=== PATIENT | male | born 1965 | race Caucasian/White ===

== ENCOUNTER 2022-12-20 08:58 | Outpatient (OUT) | payer MEDICAID, SELFPAY ==
--- NOTE | 2022-12-20 09:02 | XR_ITS ---
The [address] [address] Patient Name: JAZ MEZA MRN: [id number] date: 1965 Sex: M Assigned Patient Location: Current Patient Location: Accession/Order Number: [id number] Exam Date: 12/20/2022 09:02 Report Date: 12/20/2022 10:02 At the request of: LEENA CAZARES Procedure: XR ankle RT min 3V EXAM: XR ankle RT min 3V, XR tibia fibula RT 2V HISTORY: RIGHT ANKLE PAIN COMPARISON: 10/18/2022. TECHNIQUE: 3 views right ankle. 2 views right lower leg. FINDINGS: Remote distal fibular resection. There is removal and/or destruction of the talus as well as distraction of the subtalar joints and junction with midfoot. Disorganized chronic hypertrophic periosteal new bone is again seen around the distal tibia, fibula and ankle and hindfoot. Overall similar appearance compared to prior. May represent some combination of prior infection and/or neuropathic arthropathy but overall similar to prior with no interval new areas of active bone destruction seen. Chronic wavy periosteal thickening at the distal third of the tibia and fibular shafts similar to prior. Stable degree of soft tissue swelling and edema over the ankle. Proximal and mid tibia and fibula are intact with overlying edema. XR/XR ankle RT min 3V IMPRESSION: Overall similar appearance compared to September 2022 as detailed without interval significant change. Electronically authenticated by: SOFIA GOODRICH Date: 12/20/2022 10:02
--- NOTE | 2022-12-20 09:18 | XR_ITS ---
The [address] [address] Patient Name: JAZ MEZA MRN: [id number] date: 1965 Sex: M Assigned Patient Location: Current Patient Location: Accession/Order Number: [id number] Exam Date: 12/20/2022 09:18 Report Date: 12/20/2022 10:02 At the request of: LEENA CAZARES Procedure: XR tibia fibula RT 2V EXAM: XR ankle RT min 3V, XR tibia fibula RT 2V HISTORY: RIGHT ANKLE PAIN COMPARISON: 10/18/2022. TECHNIQUE: 3 views right ankle. 2 views right lower leg. FINDINGS: Remote distal fibular resection. There is removal and/or destruction of the talus as well as distraction of the subtalar joints and junction with midfoot. Disorganized chronic hypertrophic periosteal new bone is again seen around the distal tibia, fibula and ankle and hindfoot. Overall similar appearance compared to prior. May represent some combination of prior infection and/or neuropathic arthropathy but overall similar to prior with no interval new areas of active bone destruction seen. Chronic wavy periosteal thickening at the distal third of the tibia and fibular shafts similar to prior. Stable degree of soft tissue swelling and edema over the ankle. Proximal and mid tibia and fibula are intact with overlying edema. XR/XR tibia fibula RT 2V IMPRESSION: Overall similar appearance compared to September 2022 as detailed without interval significant change. Electronically authenticated by: SOFIA GOODRICH Date: 12/20/2022 10:02
== END 2022-12-20 08:59 | disposition home or self-care (01) ==
PROVIDERS: PCP Family Medicine; Visit Provider Podiatrist Foot & Ankle Surgery
DX: M25.571 Pain in right ankle and joints of right foot (principal); M25.471 Effusion, right ankle; T81.89XA Other complications of procedures, not elsewhere classified, initial encounter; S90.415A Abrasion, left lesser toe(s), initial encounter; E11.621 Type 2 diabetes mellitus with foot ulcer; L97.411 Non-pressure chronic ulcer of right heel and midfoot limited to breakdown of skin
CPT/HCPCS: 36415; 73590; 73610; 80051; 82565; 82947; 84520; 85025; 85652; 86140; A6213; G0463

== ENCOUNTER 2022-12-20 10:17 | Outpatient (OUT) | payer MEDICAID, SELFPAY ==
[2022-12-20 11:01] LABS: Basophils Absolute Auto 0.1 10^3/uL (0.0-0.1); Basophils Percent Auto 0.6 % (0.2-2.0); Eosinophils Absolute Auto 0.1 10^3/uL (0.0-0.7); Eosinophils Percent Auto 1.4 % (0.9-7.0); Hematocrit 36.1 % (42.0-54.0); Hemoglobin 10.9 g/dL (14.0-18.0); Immature Granulocytes Abs Auto 0.03 10^3/uL (0.00-0.03); Immature Granulocytes Pct Auto 0.4 % (0.0-0.5); Lymphocytes Absolute Auto 0.9 10^3/uL (1.2-3.8); Mean Corpuscular HGB Conc 30.2 g/dL (29.9-35.2); Mean Corpuscular Hemoglobin 24.2 pg (25.9-34.0); Mean Corpuscular Volume 80.2 fL (80.0-94.0); Mean Platelet Volume 8.3 fL (9.5-13.5); Monocytes Absolute Auto 0.5 10^3/uL (0.3-0.8); Monocytes Percent Auto 6.1 % (1.7-12.0); Neutrophils Absolute Auto 6.5 10^3/uL (1.4-6.5); Neutrophils Percent Auto 80.5 % (43.0-75.0); Platelet Count 240 10^3/uL (150-450); Red Cell Distribution Width 15.9 % (11.0-15.0); White Blood Count 8.1 10^3/uL (4.0-11.0)
[2022-12-20 11:06] LABS: Erythrocyte Sedimentation Rate 82 mm/hr (<=20)
[2022-12-20 12:00] LABS: Anion Gap 12.8; Carbon Dioxide 28.8 mmol/L (21.0-32.0); Chloride 100 mmol/L (98-107); Estimated GFR (African America 57 (>=60); Estimated GFR (Non-African Ame 47 (>=60); Glucose 106 mg/dL (74-106); Potassium 4.6 mmol/L (3.5-5.1); Sodium 137 mmol/L (136-145)
[2022-12-21 11:21] LABS: C Reactive Protein 6.2 mg/dL (<=1.0)
== END 2022-12-20 10:18 | disposition home or self-care (01) ==
LOC: LAB 10:19
PROVIDERS: PCP Family Medicine
DX: M25.571 Pain in right ankle and joints of right foot (principal); M25.471 Effusion, right ankle
CPT/HCPCS: 36415; 80051; 82565; 82947; 84520; 85025; 85652; 86140

== ENCOUNTER 2022-12-23 12:08 | Inpatient (IN) | payer MEDICAID, SELFPAY ==
[2022-12-23 12:55] VITALS: BP 123/67; PULSE 98; RESP 20; TEMP 37.3; O2SAT 90; BMI 64.3
[2022-12-23 14:24] LABS: Basophils Percent Auto 0.3 % (0.2-2.0); Eosinophils Percent Auto 0.2 % (0.9-7.0); Hematocrit 30.1 % (42.0-54.0); Hemoglobin 9.1 g/dL (14.0-18.0); Immature Granulocytes Abs Auto 0.05 10^3/uL (0.00-0.03); Immature Granulocytes Pct Auto 0.5 % (0.0-0.5); Lymphocytes Absolute Auto 0.9 10^3/uL (1.2-3.8); Lymphocytes Percent Auto 8.3 % (20.5-60.0); Mean Corpuscular HGB Conc 30.2 g/dL (29.9-35.2); Mean Corpuscular Volume 79.4 fL (80.0-94.0); Mean Platelet Volume 8.6 fL (9.5-13.5); Monocytes Absolute Auto 0.9 10^3/uL (0.3-0.8); Neutrophils Absolute Auto 8.6 10^3/uL (1.4-6.5); Neutrophils Percent Auto 81.7 % (43.0-75.0); Platelet Count 250 10^3/uL (150-450); Red Blood Count 3.79 10^6/uL (4.70-6.10); Red Cell Distribution Width 16.2 % (11.0-15.0); White Blood Count 10.5 10^3/uL (4.0-11.0)
[2022-12-23 14:28] VITALS: O2SAT 90
[2022-12-23 14:41] LABS: Erythrocyte Sedimentation Rate 84 mm/hr (<=20)
[2022-12-23 14:48] LABS: Alanine Aminotransferase 18 U/L (16-63); Albumin Globulin Ratio 0.6; Albumin Level 2.6 g/dL (3.4-5.0); Alkaline Phosphatase 109 U/L (46-116); Anion Gap 11.5; Aspartate Amino Transferase 19 U/L (15-37); BUN Creatinine Ratio 17.3; Bilirubin Total 0.9 mg/dL (0.2-1.0); Calcium 8.5 mg/dL (8.5-10.1); Carbon Dioxide 26.3 mmol/L (21.0-32.0); Chloride 98 mmol/L (98-107); Estimated GFR (African America 42 (>=60); Estimated GFR (Non-African Ame 35 (>=60); Globulin 4.4 g/dL; Potassium 3.8 mmol/L (3.5-5.1); Sodium 132 mmol/L (136-145)
[2022-12-23 14:55] LABS: Lactate/Lactic Acid 0.7 mmol/L (0.4-2.0)
[2022-12-23 15:31] LABS: Glucose 48 mg/dL (74-106)
[2022-12-23 15:40] LABS: C Reactive Protein 26.4 mg/dL (<=1.0)
[2022-12-23 16:19] LABS: Glucometer 186 mg/dL (74-106)
--- NOTE | 2022-12-23 17:25 | P.HP_ITS ---
H&P: HPI History of Present Illness Chief complaint: CELLULITIS Narrative: Patient was at home, he has a chronic right foot infection. Called the office with fever chills nausea. Recommended admission, his previous history of becoming septic quickly in the past. Patient mated for IV antibiotics, cultures, consultation to podiatry. [facility] Medical History (Updated 12/23/22 @ 12:42 by Collette Phillips) Surgical History (Updated 12/23/22 @ 12:42 by Collette Phillips) Family History (Updated 12/23/22 @ 12:44 by Collette Phillips) Grandmother Family history of CHF (congestive heart failure) Family history of cancer Mother Family history of cancer Family history of diabetes mellitus Family history of hypertension Brother Family history of diabetes mellitus Family history of hypertension Sister Family history of diabetes mellitus Family history of hypertension Father Family history of hypertension Abdominal aortic aneurysm Social History (Updated 12/23/22 @ 12:46 by Collette Phillips) Within the past year, how often did you have a drink containing alcohol: never Score interpretation: A score less than 4 is consistent with normal alcohol consumption. Smoking status: Former smoker Non-prescribed substance use: denies use Previous occupational history: Disability Highest level of school completed/degree received: some college, no degree Are you now , , , , never or living with a partner: In a typical week, how many times do you talk on the telephone with family, friends, or neighbors: 3 or more times per week How often do you get together with friends or relatives: 3 or more times per week How often do you attend zoroastrian or orthodox services: never Do you belong to any clubs or organizations such as zoroastrian groups unions, fraternal or athletic groups, or school groups: no Total score: 1 Score interpretation: A score of less than or equal to 1 indicates the most socially isolated. Little interest or pleasure in doing things: not at all Feeling down, depressed, or hopeless: not at all Feel stressed/tense/nervous/anxious/difficulty sleeping: not at all Gender Identity: male Meds Home Medications and Allergies Home Medications Medication Instructions Recorded Confirmed Type amlodipine 10 mg tablet 10 mg PO BEDTIME 12/23/22 12/23/22 History apixaban 5 mg tablet (Eliquis) 5 mg PO BID 12/23/22 12/23/22 History carvedilol 12.5 mg tablet 12.5 mg PO Q12H 12/23/22 12/23/22 History clonidine 0.3 mg/24 hr weekly 1 patch topical .Sundays12/23/22 12/23/22 History transdermal patch furosemide 40 mg tablet 40 mg PO DAILY 12/23/22 12/23/22 History gabapentin 300 mg capsule 600 mg PO Q12H 12/23/22 12/23/22 History insulin glargine U-300 conc 300 300 unit subcut Q24H 12/23/22 12/23/22 History unit/mL (1.5 mL) subcutaneous pen (Toujeo SoloStar U-300 Insulin) insulin lispro 200 unit/mL (3 mL) 30 unit subcut ACHS 12/23/22 12/23/22 History subcutaneous pen (Humalog KwikPen U-200 Insulin) pantoprazole 40 mg tablet,delayed 40 mg PO DAILY 12/23/22 12/23/22 History release sacubitril 24 mg-valsartan 26 mg 1 tab PO BID 12/23/22 12/23/22 History tablet (Entresto) Allergies Allergy/AdvReac Type Severity Reaction Status Date / Time ciprofloxacin [From Cipro] Allergy Intermediate Verified 12/23/22 13:16 clindamycin Allergy Intermediate Verified 12/24/22 07:27 shellfish derived Allergy Intermediate Verified 12/23/22 13:16 Exam Constitutional Vital Signs, click to edit/add: Last Vital Signs Temp 98.5 F 12/24/22 06:00 Pulse 86 12/24/22 06:00 Resp 18 12/24/22 08:00 BP 96/56 12/24/22 06:00 Pulse Ox 90 L 12/24/22 06:00 O2 Del Method CPAP 12/24/22 06:00 Documenting provider has reviewed patient's vital signs: yes Common normals: apparent distress General appearance: lethargic and diaphoretic HENMT Common normals: normocephalic Chest Common normals: inspection of chest normal Respiratory Common normals: normal respiratory effort, no retractions and clear to auscultation bilaterally Auscultation: diminished lung sounds Cardio Rate: tachycardic GI Common normals: Normal to inspection, nondistended, normoactive bowel sounds pr esent Extremity Common normals: abnormal to inspection (Significant dressing in place right lower extremity) Results Labs Labs: Short CBC 12/23/22 12/24/22 Range/Units 13:30 04:15 WBC 10.5 7.9 (4.0-11.0) 10^3/uL Hgb 9.1 L 8.3 L (14.0-18.0) g/dL Hct 30.1 L 27.5 L (42.0-54.0) % Plt Count 250 204 (150-450) 10^3/uL BMP 12/23/22 12/24/22 13:30 04:15 Sodium 132 L 133 L Potassium 3.8 4.0 Chloride 98 99 Carbon Dioxide 26.3 25.9 BUN 34.0 H 39.0 H Creatinine 1.97 H 2.08 H Glucose 48 L* 215 H Calcium 8.5 8.2 L Liver Function 12/23/22 Range/Units 13:30 Total Bilirubin 0.9 (0.2-1.0) mg/dL AST 19 (15-37) U/L ALT 18 (16-63) U/L Alkaline Phosphatase 109 (46-116) U/L Albumin 2.6 L (3.4-5.0) g/dL Assessment and Plan Assessment and Plan (1) Afib: (2) Cellulitis: (3) CHF (congestive heart failure): (4) Diabetes: (5) Hypertension: (6) H/O foot surgery: (7) History of incision and drainage: Plan Fever, chills, elevated ESR secondary to right lower extremity cellulitis, progressive, IV antibiotics, blood cultures, wound culture if possible Bleeding from right foot-nurse took down dressing to evaluate wound and found significant bleeding, does maintain hemostasis as long as extra pressure was placed. Consultation to podiatry. Poorly controlled diabetes mellitus-insulin sliding scale plus long-acting insulin. Hyponatremia--Monitor daily, Chronic kidney disease-stage II-Need to watch fluid status closely, history of combined congestive heart failure as well. So unable to give large fluid quantities. Hypertension-continue with home medications Morbid czyopux-hmpspt-xcml management -Patient may need placement. Discussion withWith podiatry for long-term management.
--- NOTE | 2022-12-23 19:22 | XR_ITS ---
The [address] [address] Patient Name: JAZ MEZA MRN: [id number] date: 1965 Sex: M Assigned Patient Location: [place] Current Patient Location: [place] Accession/Order Number: [id number] Exam Date: 12/23/2022 21:05 Report Date: 12/23/2022 21:18 At the request of: LEENA CAZARES Procedure: XR tibia fibula RT 2V Examination:XR ankle RT min 3V, XR tibia fibula RT 2V, XR foot RT min 3V INDICATION:infection COMPARISON:Right ankle and right tibia/fibula dated 12/20/2022. Right foot x-ray dated 10/18/2022. TECHNIQUE:3 right ankle, 4 right tibia/fibula and 4 right foot views are submitted. FINDINGS: Right tibia/fibula: Postsurgical changes are present from removal of hardware that was present in the distal tibia. Similar chronic periosteal reaction is present in the mid to lower tibia and fibula. Severe hypertrophic changes surround the distal tibia and fibula similar to the previous examination. There is subcutaneous soft tissue edema. No erosive changes are present in the proximal tibia or fibula. Right ankle: Similar erosion of the talus is present. There are erosive changes in the calcaneus unchanged from the previous examination. There has not been significant interval change from the previous exam. There are also erosive changes in the navicular bone. There is diffuse soft tissue swelling. Right foot: There are chronic findings in the mid foot. There is callus formation and chronic deformity in the proximal fifth metatarsal bone unchanged from the prior exam. No definitive new erosive changes are present in the toes or metatarsal bones. There is very severe soft tissue swelling consistent with advanced cellulitis. XR/XR tibia fibula RT 2V IMPRESSION: Similar postsurgical changes in the right lower extremity. Advanced chronic periosteal reaction is present in the mid to distal tibia and fibula. Severe hypertrophic changes and bony erosive changes are present in the right ankle and hindfoot unchanged from prior exams. Severe soft tissue swelling is present consistent with severe cellulitis. Electronically authenticated by: ABA LARSEN Date: 12/23/2022 21:18
--- NOTE | 2022-12-23 19:22 | XR_ITS ---
The [address] [address] Patient Name: JAZ MEZA MRN: [id number] date: 1965 Sex: M Assigned Patient Location: MS Current Patient Location: MS Accession/Order Number: [id number] Exam Date: 12/23/2022 21:05 Report Date: 12/23/2022 21:18 At the request of: LEENA CAZARES Procedure: XR ankle RT min 3V Examination:XR ankle RT min 3V, XR tibia fibula RT 2V, XR foot RT min 3V INDICATION:infection COMPARISON:Right ankle and right tibia/fibula dated 12/20/2022. Right foot x-ray dated 10/18/2022. TECHNIQUE:3 right ankle, 4 right tibia/fibula and 4 right foot views are submitted. FINDINGS: Right tibia/fibula: Postsurgical changes are present from removal of hardware that was present in the distal tibia. Similar chronic periosteal reaction is present in the mid to lower tibia and fibula. Severe hypertrophic changes surround the distal tibia and fibula similar to the previous examination. There is subcutaneous soft tissue edema. No erosive changes are present in the proximal tibia or fibula. Right ankle: Similar erosion of the talus is present. There are erosive changes in the calcaneus unchanged from the previous examination. There has not been significant interval change from the previous exam. There are also erosive changes in the navicular bone. There is diffuse soft tissue swelling. Right foot: There are chronic findings in the mid foot. There is callus formation and chronic deformity in the proximal fifth metatarsal bone unchanged from the prior exam. No definitive new erosive changes are present in the toes or metatarsal bones. There is very severe soft tissue swelling consistent with advanced cellulitis. XR/XR ankle RT min 3V IMPRESSION: Similar postsurgical changes in the right lower extremity. Advanced chronic periosteal reaction is present in the mid to distal tibia and fibula. Severe hypertrophic changes and bony erosive changes are present in the right ankle and hindfoot unchanged from prior exams. Severe soft tissue swelling is present consistent with severe cellulitis. Electronically authenticated by: ABA LARSEN Date: 12/23/2022 21:18
--- NOTE | 2022-12-23 19:22 | XR_ITS ---
The [address] [address] Patient Name: JAZ MEZA MRN: [id number] date: 1965 Sex: M Assigned Patient Location: MS Current Patient Location: MS Accession/Order Number: [id number] Exam Date: 12/23/2022 21:05 Report Date: 12/23/2022 21:18 At the request of: LEENA CAZARES Procedure: XR foot RT min 3V Examination:XR ankle RT min 3V, XR tibia fibula RT 2V, XR foot RT min 3V INDICATION:infection COMPARISON:Right ankle and right tibia/fibula dated 12/20/2022. Right foot x-ray dated 10/18/2022. TECHNIQUE:3 right ankle, 4 right tibia/fibula and 4 right foot views are submitted. FINDINGS: Right tibia/fibula: Postsurgical changes are present from removal of hardware that was present in the distal tibia. Similar chronic periosteal reaction is present in the mid to lower tibia and fibula. Severe hypertrophic changes surround the distal tibia and fibula similar to the previous examination. There is subcutaneous soft tissue edema. No erosive changes are present in the proximal tibia or fibula. Right ankle: Similar erosion of the talus is present. There are erosive changes in the calcaneus unchanged from the previous examination. There has not been significant interval change from the previous exam. There are also erosive changes in the navicular bone. There is diffuse soft tissue swelling. Right foot: There are chronic findings in the mid foot. There is callus formation and chronic deformity in the proximal fifth metatarsal bone unchanged from the prior exam. No definitive new erosive changes are present in the toes or metatarsal bones. There is very severe soft tissue swelling consistent with advanced cellulitis. XR/XR foot RT min 3V IMPRESSION: Similar postsurgical changes in the right lower extremity. Advanced chronic periosteal reaction is present in the mid to distal tibia and fibula. Severe hypertrophic changes and bony erosive changes are present in the right ankle and hindfoot unchanged from prior exams. Severe soft tissue swelling is present consistent with severe cellulitis. Electronically authenticated by: ABA LARSEN Date: 12/23/2022 21:18
--- NOTE | 2022-12-23 19:28 | PC.NURSE ---
After inserting catheter RN went on to assess the right leg further after obtaining orders from Dr. Myers. RN removed the boot and then removed the bg wrap. After removing the bg wrap, RN pulled back the ABD's that were in place, there was still a bandage over the wound but after pulling back the ABD's blood and tissue starting pouring out of the wound. RN immediately applied pressure and had the PCP and Podiatry paged to get orders on what to do next. Dr. Zazueta called back and informed the RN to apply pressure and try to get a pressure dressing back on it and he would reach out to . Pressure was applied for 15 minutes. Bleeding slowed enough to get a new dressing on the right heal wound. 4x4s and Abd's applied, bg wraps applied over that. Right leg was elevated and ice applied. Dr. Zazueta called back at this time and informed the RN that Louis ordered the dressing change, the only thing not currently on the wound that louis wanted was kerlix. RN informed to Dr. Zazueta that when the dressing needed changed again the kerlix would be added. Dr. Zazueta verbalized that, that would be okay. Dr. Zazueta also gave orders to d/c sae at this time and order Pt and PTT for the morning. Orders were put in by RN.
--- NOTE | 2022-12-23 19:42 | PC.NURSE ---
Foot dressing remains clean, dry, and intact at this time. Foot is elevated.
--- NOTE | 2022-12-23 19:57 | PC.NURSE ---
Dressing to right foot is clean, dry, and intact. ble discolored. Small area of redness observed to outer right knee.
[2022-12-23] MEDS: CLINDAMYCIN PHOSPHATE/D5W 600 MG/50 ML PIGGYBACK 100 MG IV (20:16)
[2022-12-23] MEDS: CARVEDILOL 12.5 MG TABLET PO (20:37)
[2022-12-23] MEDS: GABAPENTIN 300 MG CAPSULE 600 MG PO (20:37)
[2022-12-23] MEDS: SACUBITRIL/VALSARTAN 1 EACH TABLET 1 TAB PO (20:38)
[2022-12-23 20:40] VITALS: BP 123/66; PULSE 85; RESP 20; TEMP 36.9; O2SAT 91
[2022-12-23 21:20] VITALS: O2SAT 90
--- NOTE | 2022-12-23 21:21 | PC.NURSE ---
When x--ray came up, they moved patient's leg, sanguineous drainage came through bg wrap. Dressing not removed at this time. Dressing reinforced with kerlix wrap dressing at this time. No new drainage observed.
[2022-12-24] VITALS (7 sets, daily range): BP systolic 96–105; BP diastolic 56–58; PULSE 79–86; RESP 18–20; TEMP 36.4–37.1; O2SAT 90–94
[2022-12-24] MEDS: CLINDAMYCIN PHOSPHATE/D5W 600 MG/50 ML PIGGYBACK 100 MG IV (02:07)
[2022-12-24 04:19] LABS: A. calcoaceticus-baumannii Cpx NOT DETECTED (NOT DETECTE); Bacteroides fragilis NOT DETECTED (NOT DETECTE); Candida albicans NOT DETECTED (NOT DETECTE); Candida auris NOT DETECTED (NOT DETECTE); Candida glabrata NOT DETECTED (NOT DETECTE); Candida krusei NOT DETECTED (NOT DETECTE); Candida parapsilosis NOT DETECTED (NOT DETECTE); Candida tropicalis NOT DETECTED (NOT DETECTE); Cryptococcus neoformans/gattii NOT DETECTED (NOT DETECTE); Enterobacter cloacae complex NOT DETECTED (NOT DETECTE); Enterobacterales NOT DETECTED (NOT DETECTE); Enterococcus faecalis NOT DETECTED (NOT DETECTE); Enterococcus faecium NOT DETECTED (NOT DETECTE); Haemophilus influenzae NOT DETECTED (NOT DETECTE); Klebsiella aerogenes NOT DETECTED (NOT DETECTE); Klebsiella pneumoniae group NOT DETECTED (NOT DETECTE); Listeria monocytogenes NOT DETECTED (NOT DETECTE); Neisseria meningitidis NOT DETECTED (NOT DETECTE); Proteus spp. NOT DETECTED (NOT DETECTE); Pseudomonas aeruginosa NOT DETECTED (NOT DETECTE); Salmonella spp. NOT DETECTED (NOT DETECTE); Serratia marcescens NOT DETECTED (NOT DETECTE); Staphylococcus epidermidis NOT DETECTED (NOT DETECTE); Staphylococcus lugdunensis NOT DETECTED (NOT DETECTE); Stenotrophomonas maltophilia NOT DETECTED (NOT DETECTE); Streptococcus agalactiae NOT DETECTED (NOT DETECTE); Streptococcus pneumoniae NOT DETECTED (NOT DETECTE); Streptococcus pyogenes NOT DETECTED (NOT DETECTE); Streptococcus spp. NOT DETECTED (NOT DETECTE)
[2022-12-24 04:57] LABS: Basophils Percent Auto 0.4 % (0.2-2.0); Eosinophils Absolute Auto 0.1 10^3/uL (0.0-0.7); Eosinophils Percent Auto 1.1 % (0.9-7.0); Hematocrit 27.5 % (42.0-54.0); Hemoglobin 8.3 g/dL (14.0-18.0); Immature Granulocytes Abs Auto 0.02 10^3/uL (0.00-0.03); Immature Granulocytes Pct Auto 0.3 % (0.0-0.5); Lymphocytes Absolute Auto 0.7 10^3/uL (1.2-3.8); Lymphocytes Percent Auto 9.1 % (20.5-60.0); Mean Corpuscular HGB Conc 30.2 g/dL (29.9-35.2); Mean Corpuscular Hemoglobin 24.1 pg (25.9-34.0); Mean Corpuscular Volume 79.9 fL (80.0-94.0); Mean Platelet Volume 8.8 fL (9.5-13.5); Monocytes Absolute Auto 0.5 10^3/uL (0.3-0.8); Monocytes Percent Auto 6.8 % (1.7-12.0); Neutrophils Absolute Auto 6.5 10^3/uL (1.4-6.5); Neutrophils Percent Auto 82.3 % (43.0-75.0); Platelet Count 204 10^3/uL (150-450); Red Blood Count 3.44 10^6/uL (4.70-6.10); Red Cell Distribution Width 15.9 % (11.0-15.0); White Blood Count 7.9 10^3/uL (4.0-11.0)
[2022-12-24 05:09] LABS: INR 1.13; Prothrombin Time 11.9 sec (9.0-11.6)
[2022-12-24 05:21] LABS: Anion Gap 12.1; BUN Creatinine Ratio 18.8; Calcium 8.2 mg/dL (8.5-10.1); Carbon Dioxide 25.9 mmol/L (21.0-32.0); Chloride 99 mmol/L (98-107); Estimated GFR (African America 40 (>=60); Estimated GFR (Non-African Ame 33 (>=60); Glucose 215 mg/dL (74-106); Sodium 133 mmol/L (136-145)
[2022-12-24 05:23] LABS: Gentamicin Random 7.4 ug/mL
[2022-12-24 05:45] LABS: Partial Thromboplastin Time 42.1 sec (22.3-36.2)
[2022-12-24 05:48] LABS: Staphylococcus spp. DETECTED (NOT DETECTE)
[2022-12-24] MEDS: ACETAMINOPHEN 500 MG TABLET 1000 MG PO (07:30)
[2022-12-24] MEDS: DIPHENHYDRAMINE HCL 50 MG/ML (1ML) VIAL 25 MG IV (07:39)
[2022-12-24] MEDS: CEFTRIAXONE 2,000 MG in 0.9 % SODIUM CHLORIDE 100 ML 200 MG IV (09:29)
[2022-12-24] MEDS: 0.9 % SODIUM CHLORIDE 250 ML 100 ML IV (09:29)
[2022-12-24] MEDS: OMEPRAZOLE 40 MG CAPSULE.DR PO (09:31)
[2022-12-24] MEDS: SACUBITRIL/VALSARTAN 1 EACH TABLET 2 TAB PO ×3 (09:31→21:41)
[2022-12-24] MEDS: FUROSEMIDE 40 MG TABLET PO (09:31)
[2022-12-24] MEDS: CARVEDILOL 12.5 MG TABLET PO ×2 (09:31→21:40)
[2022-12-24] MEDS: GABAPENTIN 300 MG CAPSULE 600 MG PO ×2 (09:31→21:41)
--- NOTE | 2022-12-24 10:40 | P.PN_ITS ---
Progress Note: Subjective Subjective Interval history: Looks much improved today. Exam Constitutional Vital Signs, click to edit/add: Last Vital Signs Temp 98.5 F 12/24/22 06:00 Pulse 86 12/24/22 06:00 Resp 18 12/24/22 08:00 BP 96/56 12/24/22 06:00 Pulse Ox 90 L 12/24/22 06:00 O2 Del Method CPAP 12/24/22 06:00 Documenting provider has reviewed patient's vital signs: yes HENMT Common normals: normocephalic Chest Common normals: inspection of chest normal Respiratory Common normals: normal respiratory effort, no retractions and clear to auscultation bilaterally Auscultation: diminished lung sounds Cardio Rate: tachycardic GI Common normals: Normal to inspection, nondistended, normoactive bowel sounds present Extremity Common normals: abnormal to inspection (Significant dressing in place right lower extremity) Progress Note: Objective Labs Labs: Short CBC 12/23/22 12/24/22 Range/Units 13:30 04:15 WBC 10.5 7.9 (4.0-11.0) 10^3/uL Hgb 9.1 L 8.3 L (14.0-18.0) g/dL Hct 30.1 L 27.5 L (42.0-54.0) % Plt Count 250 204 (150-450) 10^3/uL BMP 12/23/22 12/24/22 13:30 04:15 Sodium 132 L 133 L Potassium 3.8 4.0 Chloride 98 99 Carbon Dioxide 26.3 25.9 BUN 34.0 H 39.0 H Creatinine 1.97 H 2.08 H Glucose 48 L* 215 H Calcium 8.5 8.2 L Liver Function 12/23/22 Range/Units 13:30 Total Bilirubin 0.9 (0.2-1.0) mg/dL AST 19 (15-37) U/L ALT 18 (16-63) U/L Alkaline Phosphatase 109 (46-116) U/L Albumin 2.6 L (3.4-5.0) g/dL Progress Note: A&P Assessment and Plan (1) Afib: (2) Cellulitis: (3) CHF (congestive heart failure): (4) Diabetes: (5) Hypertension: (6) Obesity: (7) Sleep apnea: Plan Fever, chills, elevated ESR secondary to right lower extremity cellulitis, progressive, maintain current treatment plan as patient is overall stable. Bleeding from right foot- continue to maintain pressure as recommended by podiatry Poorly controlled diabetes mellitus- adjust insulin sliding scale further today. Hyponatremia--Monitor daily, Chronic kidney disease-stage II-Need to watch fluid status closely, history of combined congestive heart failure as well. So unable to give large fluid quantities.-somewhat elevated today. P Hypertension-continue with home medications Morbid rjzhudl-xzciwb-ndri management patient overall improved but not to the point of being able to be discharged. He will need inpatient status. We will change patient
[2022-12-24] MEDS: OXYCODONE HCL 5 MG TABLET PO ×3 (10:43→21:40)
[2022-12-24] MEDS: VANCOMYCIN HCL 1,750 MG in 0.9 % SODIUM CHLORIDE 500 ML 250 MG IV (10:43)
[2022-12-24] MEDS: INSULIN DETEMIR 300 UNIT/3 ML INSULN.PEN 120 UNIT SUBQ ×2 (10:44→21:42)
[2022-12-24 12:08] LABS: mecA/C and MREJ (MRSA) NOT DETECTED (NOT DETECTE)
[2022-12-24 16:05] LABS: Glucometer 213 mg/dL (74-106)
[2022-12-24] MEDS: INSULIN ASPART 300 UNIT/3 ML PEN SUBQ (21:41)
[2022-12-25] VITALS (7 sets, daily range): BP systolic 100–134; BP diastolic 46–67; PULSE 82–93; RESP 16–20; TEMP 37.1; O2SAT 90–93
[2022-12-25] MEDS: OXYCODONE HCL 5 MG TABLET PO ×3 (04:43→23:09)
[2022-12-25 05:11] LABS: Basophils Percent Auto 0.4 % (0.2-2.0); Eosinophils Absolute Auto 0.2 10^3/uL (0.0-0.7); Eosinophils Percent Auto 2.5 % (0.9-7.0); Hematocrit 28.7 % (42.0-54.0); Hemoglobin 8.8 g/dL (14.0-18.0); Immature Granulocytes Abs Auto 0.04 10^3/uL (0.00-0.03); Immature Granulocytes Pct Auto 0.6 % (0.0-0.5); Lymphocytes Absolute Auto 0.6 10^3/uL (1.2-3.8); Lymphocytes Percent Auto 9.4 % (20.5-60.0); Mean Corpuscular HGB Conc 30.7 g/dL (29.9-35.2); Mean Corpuscular Hemoglobin 24.2 pg (25.9-34.0); Mean Corpuscular Volume 79.1 fL (80.0-94.0); Mean Platelet Volume 8.5 fL (9.5-13.5); Monocytes Absolute Auto 0.5 10^3/uL (0.3-0.8); Neutrophils Absolute Auto 5.5 10^3/uL (1.4-6.5); Neutrophils Percent Auto 80.1 % (43.0-75.0); Platelet Count 244 10^3/uL (150-450); Red Blood Count 3.63 10^6/uL (4.70-6.10); White Blood Count 6.8 10^3/uL (4.0-11.0)
[2022-12-25 05:28] LABS: Erythrocyte Sedimentation Rate 105 mm/hr (<=20)
[2022-12-25 05:35] LABS: Anion Gap 11.8; Calcium 8.3 mg/dL (8.5-10.1); Chloride 97 mmol/L (98-107); Estimated GFR (African America 38 (>=60); Estimated GFR (Non-African Ame 31 (>=60); Glucose 111 mg/dL (74-106); Potassium 3.8 mmol/L (3.5-5.1); Sodium 131 mmol/L (136-145)
[2022-12-25 06:10] LABS: C Reactive Protein 46.8 mg/dL (<=1.0)
[2022-12-25] MEDS: DIPHENHYDRAMINE HCL 50 MG/ML (1ML) VIAL 25 MG IV ×3 (07:56→22:25)
[2022-12-25] MEDS: GABAPENTIN 300 MG CAPSULE 600 MG PO ×2 (08:01→22:24)
[2022-12-25] MEDS: OMEPRAZOLE 40 MG CAPSULE.DR PO (08:01)
[2022-12-25] MEDS: CARVEDILOL 12.5 MG TABLET PO ×2 (08:01→22:25)
[2022-12-25] MEDS: FUROSEMIDE 40 MG TABLET PO (08:02)
[2022-12-25] MEDS: CEFTRIAXONE 2,000 MG in 0.9 % SODIUM CHLORIDE 100 ML 200 MG IV (08:09)
[2022-12-25] MEDS: SACUBITRIL/VALSARTAN 1 EACH TABLET 2 TAB PO ×2 (08:09→22:24)
[2022-12-25] MEDS: INSULIN DETEMIR 300 UNIT/3 ML INSULN.PEN 120 UNIT SUBQ ×2 (11:05→22:25)
--- NOTE | 2022-12-25 11:12 | P.PN_ITS ---
Progress Note: Subjective Subjective Interval history: Still having some itching at times Exam Constitutional Vital Signs, click to edit/add: Last Vital Signs Temp 98.7 F 12/25/22 05:24 Pulse 82 12/25/22 05:24 Resp 16 12/25/22 08:00 BP 106/64 12/25/22 05:24 Pulse Ox 91 L 12/25/22 05:24 O2 Del Method Room Air 12/25/22 05:24 Documenting provider has reviewed patient's vital signs: yes HENMT Common normals: normocephalic Chest Common normals: inspection of chest normal Respiratory Common normals: normal respiratory effort, no retractions and clear to auscultation bilaterally Auscultation: diminished lung sounds Cardio Rate: tachycardic GI Common normals: Normal to inspection, nondistended, normoactive bowel sounds present Extremity Common normals: abnormal to inspection (Significant dressing in place right lower extremity) Progress Note: Objective Labs Labs: Short CBC 12/25/22 Range/Units 04:35 WBC 6.8 (4.0-11.0) 10^3/uL Hgb 8.8 L (14.0-18.0) g/dL Hct 28.7 L (42.0-54.0) % Plt Count 244 (150-450) 10^3/uL BMP 12/25/22 04:35 Sodium 131 L Potassium 3.8 Chloride 97 L Carbon Dioxide 26.0 BUN 50.0 H Creatinine 2.17 H Glucose 111 H Calcium 8.3 L Progress Note: A&P Assessment and Plan (1) Afib: (2) Cellulitis: (3) CHF (congestive heart failure): (4) Diabetes: (5) Hypertension: (6) Obesity: (7) Sleep apnea: Plan Fever, chills, elevated ESR secondary to right lower extremity cellulitis, progressive, stable-continue to monitor labs, podiatry to see tomorrow Bleeding from right foot- continue to maintain pressure as recommended by podiatry-Podiatry to see tomorrow Poorly controlled diabetes mellitus- adjust insulin sliding scale further today. Sugars continue to fluctuate but will monitor and adjust insulin Hyponatremia--Monitor daily, Chronic kidney disease-stage II-Need to watch fluid status closely, history of combined congestive heart failure as well. So unable to give large fluid quantities.-somewhat elevated today. Continue somewhat elevated today. continue to monitor daily, consideration for changing vancomycin P Hypertension-continue with home medications Morbid enqixhm-opbqla-goin management patient overall improved but not to the point of being able to be discharged. He will need inpatient status. We will change patient
[2022-12-25] MEDS: VANCOMYCIN HCL 1,750 MG in 0.9 % SODIUM CHLORIDE 500 ML 250 MG IV (11:45)
[2022-12-25] MEDS: INSULIN ASPART 300 UNIT/3 ML PEN SUBQ ×2 (14:19→22:27)
--- NOTE | 2022-12-25 19:52 | PC.NURSE ---
rt foot and ankle has an ABD and wrapped. dark red color, warm to the touchf
[2022-12-25 21:05] LABS: Glucometer 171 mg/dL (74-106)
[2022-12-25] MEDS: ACETAMINOPHEN 500 MG TABLET 1000 MG PO (22:25)
[2022-12-26] VITALS (8 sets, daily range): BP systolic 100–148; BP diastolic 53–68; PULSE 77–85; RESP 16–18; TEMP 36.6–37; O2SAT 90–91; BMI 64.3
[2022-12-26] MEDS: OXYCODONE HCL 5 MG TABLET PO ×2 (04:02→08:42)
[2022-12-26] MEDS: DIPHENHYDRAMINE HCL 50 MG/ML (1ML) VIAL 25 MG IV (04:03)
[2022-12-26 04:57] LABS: Basophils Percent Auto 0.3 % (0.2-2.0); Eosinophils Absolute Auto 0.2 10^3/uL (0.0-0.7); Eosinophils Percent Auto 2.8 % (0.9-7.0); Hematocrit 27.5 % (42.0-54.0); Hemoglobin 8.6 g/dL (14.0-18.0); Immature Granulocytes Abs Auto 0.02 10^3/uL (0.00-0.03); Immature Granulocytes Pct Auto 0.3 % (0.0-0.5); Lymphocytes Absolute Auto 0.8 10^3/uL (1.2-3.8); Lymphocytes Percent Auto 12.9 % (20.5-60.0); Mean Corpuscular HGB Conc 31.3 g/dL (29.9-35.2); Mean Corpuscular Hemoglobin 24.6 pg (25.9-34.0); Mean Corpuscular Volume 78.8 fL (80.0-94.0); Mean Platelet Volume 8.7 fL (9.5-13.5); Monocytes Absolute Auto 0.5 10^3/uL (0.3-0.8); Monocytes Percent Auto 7.8 % (1.7-12.0); Neutrophils Absolute Auto 4.6 10^3/uL (1.4-6.5); Neutrophils Percent Auto 75.9 % (43.0-75.0); Platelet Count 248 10^3/uL (150-450); Red Blood Count 3.49 10^6/uL (4.70-6.10); Red Cell Distribution Width 16.1 % (11.0-15.0)
[2022-12-26 05:20] LABS: Anion Gap 14.9; BUN Creatinine Ratio 26.1; Calcium 8.3 mg/dL (8.5-10.1); Carbon Dioxide 24.2 mmol/L (21.0-32.0); Chloride 99 mmol/L (98-107); Estimated GFR (African America 36 (>=60); Estimated GFR (Non-African Ame 30 (>=60); Glucose 155 mg/dL (74-106); Potassium 4.1 mmol/L (3.5-5.1); Sodium 134 mmol/L (136-145)
[2022-12-26] MEDS: CEFTRIAXONE 2,000 MG in 0.9 % SODIUM CHLORIDE 100 ML 200 MG IV (08:39)
[2022-12-26] MEDS: SACUBITRIL/VALSARTAN 1 EACH TABLET 2 TAB PO ×2 (08:42→20:22)
[2022-12-26] MEDS: FUROSEMIDE 40 MG TABLET PO (08:43)
[2022-12-26] MEDS: OMEPRAZOLE 40 MG CAPSULE.DR PO (08:43)
[2022-12-26] MEDS: GABAPENTIN 300 MG CAPSULE 600 MG PO ×2 (08:44→20:22)
[2022-12-26] MEDS: CARVEDILOL 12.5 MG TABLET PO ×2 (08:44→20:22)
--- NOTE | 2022-12-26 09:30 | P.PN_ITS ---
Progress Note: Subjective Subjective Interval history: jamesryl helping = pain persisting Exam Constitutional Vital Signs, click to edit/add: Last Vital Signs Temp 98.2 F 12/26/22 08:42 Pulse 85 12/26/22 05:06 Resp 16 12/26/22 08:00 BP 110/67 12/26/22 05:06 Pulse Ox 91 L 12/26/22 05:35 O2 Del Method Room Air 12/26/22 05:35 Documenting provider has reviewed patient's vital signs: yes HENMT Common normals: normocephalic Chest Common normals: inspection of chest normal Respiratory Common normals: normal respiratory effort, no retractions and clear to auscultation bilaterally Auscultation: diminished lung sounds Cardio Rate: tachycardic GI Common normals: Normal to inspection, nondistended, normoactive bowel sounds present Extremity Common normals: abnormal to inspection (Significant dressing in place right lower extremity) Progress Note: Objective Labs Labs: Short CBC 12/26/22 Range/Units 04:20 WBC 6.0 (4.0-11.0) 10^3/uL Hgb 8.6 L (14.0-18.0) g/dL Hct 27.5 L (42.0-54.0) % Plt Count 248 (150-450) 10^3/uL BMP 12/26/22 04:20 Sodium 134 L Potassium 4.1 Chloride 99 Carbon Dioxide 24.2 BUN 59.0 H Creatinine 2.26 H Glucose 155 H Calcium 8.3 L Progress Note: A&P Assessment and Plan (1) Afib: (2) Cellulitis: (3) CHF (congestive heart failure): (4) Diabetes: (5) Hypertension: (6) Obesity: (7) Sleep apnea: Plan Fever, chills, elevated ESR secondary to right lower extremity cellulitis, progressive, stable- - BC positibe - final later today - in IV ab Bleeding from right foot- continue to maintain pressure as recommended by podiatry-Podiatry to see today Poorly controlled diabetes mellitus- cotn to monitor Hyponatremia--Monitor daily, Chronic kidney disease-stage II- up dl again to day - still needs the vikaso till cx are back Hypertension-continue with home medications Morbid ytsmnxp-ieqeqm-nroo management needs more IV ab till cx back
--- NOTE | 2022-12-26 09:39 | CM.NOTE ---
Rounds made with Dr. Zazueta. Awaiting Podiatry Consult for plan of care. Mr. Aguilera verbalizes understanding.
[2022-12-26] MEDS: DIPHENHYDRAMINE HCL 50 MG/ML (1ML) VIAL IV ×2 (11:13→23:53)
[2022-12-26] MEDS: ACETAMINOPHEN 500 MG TABLET 1000 MG PO (11:13)
[2022-12-26] MEDS: VANCOMYCIN HCL 1,750 MG in 0.9 % SODIUM CHLORIDE 500 ML 250 MG IV (11:20)
--- NOTE | 2022-12-26 12:07 | P.CN_ITS ---
Consult Note: HPI Data of Consult Requesting Physician: Arnold Zazueta MD Primary Care Provider: Arnold Zazueta MD Consult Narrative Reason for consult: Right diabetic foot/ankle infection Narrative: Patient is a 57-year-old male well-known to my practice is undergone multiple surgeries for his right ankle Charcot, multiple ulcerations and infections. He reportedly called the office on Monday relating to chills and ultimately was admitted by Dr. Zazueta. I was out of town therefore this is the first chance and I had to evaluate Mr. Aguilera. Since admission he has remained stable and slightly improved but still having chills and malaise. Blood cultures have resulted in Staph aureus and he is currently on ceftriaxone and vancomycin. His white blood cell count has trended from 10 to 6. His hemoglobin is 8.6 and hematocrit 27.5. ESR today is 105 while CRP is 46. His creatinine has slightly increased from 1.97 to 2.26. According to the patient and nursing patient has had bleeding from lateral ankle wound which has required reinforcement of the dressing. Today he has some strikethrough and has not had the boot on so that bleeding could be monitored. Patient experiences pain anytime he moves slightly given the instability of his ankle. He inquired about the ongoing plan and whether or not his limb can be salvaged. cc:: CC: Arnold Zazueta MD Review of Systems ROS Narrative Patient has remained afebrile however relates to chills and malaise. He relates that he feels tired. He is able to eat but his appetite is poor. Relates to localized right ankle pain and increasing swelling in both his lower legs. Status of ROS 10 or more systems reviewed and unremarkable except as noted in history and below [facility] Medical History Surgical History Family History Grandmother Family history of CHF (congestive heart failure) Family history of cancer Mother Family history of cancer Family history of diabetes mellitus Family history of hypertension Brother Family history of diabetes mellitus Family history of hypertension Sister Family history of diabetes mellitus Family history of hypertension Father Family history of hypertension Abdominal aortic aneurysm Social History Within the past year, how often did you have a drink containing alcohol: never Score interpretation: A score less than 4 is consistent with normal alcohol consumption. Smoking status: Former smoker Non-prescribed substance use: denies use Previous occupational history: Disability Highest level of school completed/degree received: some college, no degree Are you now , , , , never or living with a partner: In a typical week, how many times do you talk on the telephone with family, friends, or neighbors: 3 or more times per week How often do you get together with friends or relatives: 3 or more times per week How often do you attend anglican or confucianism services: never Do you belong to any clubs or organizations such as anglican groups unions, [facility] or athletic groups, or school groups: no Total score: 1 Score interpretation: A score of less than or equal to 1 indicates the most socially isolated. Little interest or pleasure in doing things: not at all Feeling down, depressed, or hopeless: not at all Feel stressed/tense/nervous/anxious/difficulty sleeping: not at all Gender Identity: male Meds Home Medications and Allergies Home Medications Medication Instructions Recorded Confirmed Type amlodipine 10 mg tablet 10 mg PO BEDTIME 12/23/22 12/23/22 History apixaban 5 mg tablet (Eliquis) 5 mg PO BID 12/23/22 12/23/22 History carvedilol 12.5 mg tablet 12.5 mg PO Q12H 12/23/22 12/23/22 History clonidine 0.3 mg/24 hr weekly 1 patch topical .Sundays12/23/22 12/23/22 History transdermal patch furosemide 40 mg tablet 40 mg PO DAILY 12/23/22 12/23/22 History gabapentin 300 mg capsule 600 mg PO Q12H 12/23/22 12/23/22 History insulin glargine U-300 conc 300 300 unit subcut Q24H 12/23/22 12/23/22 History unit/mL (1.5 mL) subcutaneous pen (Toujeo SoloStar U-300 Insulin) insulin lispro 200 unit/mL (3 mL) 30 unit subcut ACHS 12/23/22 12/23/22 History subcutaneous pen (Humalog KwikPen U-200 Insulin) pantoprazole 40 mg tablet,delayed 40 mg PO DAILY 12/23/22 12/23/22 History release sacubitril 24 mg-valsartan 26 mg 1 tab PO BID 12/23/22 12/23/22 History tablet (Entresto) Allergies Allergy/AdvReac Type Severity Reaction Status Date / Time ciprofloxacin [From Cipro] Allergy Intermediate Verified 12/23/22 13:16 clindamycin Allergy Intermediate Verified 12/24/22 07:27 shellfish derived Allergy Intermediate Verified 12/23/22 13:16 Exam Narrative Exam Narrative: After removing the dressing there is a penetrating deep wound which probes to bone over his lateral ankle. Periwound skin is slightly macerated. Minimal surrounding erythema. When probed there is small amount of pus evacuated. Any manipulation of his ankle elicits pain given its lian instability. Bilateral calves are severely swollen with the right being slightly worse than the left. Pedal pulses are faintly palpable and capillary refill time is brisk Constitutional Vital Signs, click to edit/add: Last Vital Signs Temp 98.2 F 12/26/22 08:42 Pulse 85 12/26/22 05:06 Resp 16 12/26/22 08:00 BP 110/67 12/26/22 05:06 Pulse Ox 91 L 12/26/22 05:35 O2 Del Method Room Air 12/26/22 05:35 Results Labs Labs: Short CBC 12/26/22 Range/Units 04:20 WBC 6.0 (4.0-11.0) 10^3/uL Hgb 8.6 L (14.0-18.0) g/dL Hct 27.5 L (42.0-54.0) % Plt Count 248 (150-450) 10^3/uL BMP 12/26/22 04:20 Sodium 134 L Potassium 4.1 Chloride 99 Carbon Dioxide 24.2 BUN 59.0 H Creatinine 2.26 H Glucose 155 H Calcium 8.3 L Assessment and Plan Assessment and Plan (1) Afib: (2) Cellulitis: (3) CHF (congestive heart failure): (4) Diabetes: (5) Hypertension: (6) Obesity: (7) Sleep apnea: (8) Subacute osteomyelitis, right ankle and foot: Assessment and Plan: Patient's chronic infection has become acute and now life-threatening. Staff aureus has grown from blood cultures. In addition patient has a nonfunctional frankly unstable ankle which is now unreconstructable. I recommended incision and drainage with bone debridement with possible percutaneous pinning. I will notify anesthesia and hopefully will be able to add him onto the surgery schedule tomorrow. Hold any blood thinners N.p.o. 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 Please keep the boot on to provide stability of the patient's ankle as it is causing pain and possibly worsening the bleeding given the instability. Reinforce the dressing as needed (10) Type 2 diabetes mellitus with foot ulcer: (11) Type 2 diabetes mellitus with diabetic polyneuropathy: (12) Charcot's joint, right ankle and foot: Assessment and Plan: Patient has undergone multiple attempted reconstructions and has had recurrent Charcot processes and issues with his ankle. I do not believe that he is a good candidate for attempted revision and clearance of the infection is paramount and ultimately will likely require a major amputation once infection is cleared and medically optimized. I will reach out to Dr. Duffy at [facility] regarding the patient Plan Fever, chills, elevated ESR secondary to right lower extremity cellulitis, progressive, IV antibiotics, blood cultures, wound culture if possible Bleeding from right foot-nurse took down dressing to evaluate wound and found significant bleeding, does maintain hemostasis as long as extra pressure was placed. Consultation to podiatry. Poorly controlled diabetes mellitus-insulin sliding scale plus long-acting insulin. Hyponatremia--Monitor daily, Chronic kidney disease-stage II-Need to watch fluid status closely, history of combined congestive heart failure as well. So unable to give large fluid quantities. Hypertension-continue with home medications Morbid [id number] management -Patient may need placement. Discussion withWith podiatry for long-term management. See above
--- NOTE | 2022-12-26 12:30 | DIETREC ---
Nutrition Recommendations: 1. Add Brandon 1 packet BID. 2. Consider adding Prostat 30 mL 1-2 times daily as well. Reviewed with
--- NOTE | 2022-12-26 12:45 | SWNOTE1 ---
Unsure of discharge plans at this time. See podiatry note. Pt refusing therapy at this time.
[2022-12-26] MEDS: INSULIN DETEMIR 300 UNIT/3 ML INSULN.PEN 120 UNIT SUBQ (12:58)
[2022-12-26] MEDS: INSULIN ASPART 300 UNIT/3 ML PEN SUBQ (12:58)
[2022-12-26] MEDS: OXYCODONE HCL 5 MG TABLET 10 MG PO ×2 (18:32→23:57)
[2022-12-26] MEDS: PROSTAT 15 GM PROTEIN/100 CAL 30 ML LIQUID PACKET PO (20:22)
[2022-12-27] VITALS (11 sets, daily range): BP systolic 83–144; BP diastolic 46–75; PULSE 79–97; RESP 14–20; TEMP 36.1–37.4; O2SAT 89–95
[2022-12-27] MEDS: TEMAZEPAM 15 MG CAPSULE 30 MG PO (00:10)
[2022-12-27 04:38] LABS: Basophils Percent Auto 0.5 % (0.2-2.0); Eosinophils Absolute Auto 0.2 10^3/uL (0.0-0.7); Eosinophils Percent Auto 2.9 % (0.9-7.0); Hematocrit 29.7 % (42.0-54.0); Hemoglobin 8.7 g/dL (14.0-18.0); Immature Granulocytes Abs Auto 0.03 10^3/uL (0.00-0.03); Immature Granulocytes Pct Auto 0.5 % (0.0-0.5); Lymphocytes Absolute Auto 0.7 10^3/uL (1.2-3.8); Lymphocytes Percent Auto 12.8 % (20.5-60.0); Mean Corpuscular HGB Conc 29.3 g/dL (29.9-35.2); Mean Corpuscular Hemoglobin 24.1 pg (25.9-34.0); Mean Corpuscular Volume 82.3 fL (80.0-94.0); Mean Platelet Volume 8.8 fL (9.5-13.5); Monocytes Absolute Auto 0.4 10^3/uL (0.3-0.8); Monocytes Percent Auto 7.1 % (1.7-12.0); Neutrophils Absolute Auto 4.4 10^3/uL (1.4-6.5); Neutrophils Percent Auto 76.2 % (43.0-75.0); Platelet Count 250 10^3/uL (150-450); Red Blood Count 3.61 10^6/uL (4.70-6.10); White Blood Count 5.8 10^3/uL (4.0-11.0)
[2022-12-27 04:52] LABS: Anion Gap 12.8; BUN Creatinine Ratio 25.5; Calcium 8.6 mg/dL (8.5-10.1); Carbon Dioxide 26.4 mmol/L (21.0-32.0); Chloride 101 mmol/L (98-107); Erythrocyte Sedimentation Rate 97 mm/hr (<=20); Estimated GFR (African America 42 (>=60); Estimated GFR (Non-African Ame 34 (>=60); Glucose 150 mg/dL (74-106); Potassium 4.2 mmol/L (3.5-5.1); Sodium 136 mmol/L (136-145)
[2022-12-27 04:53] LABS: C Reactive Protein 25.8 mg/dL (<=1.0)
[2022-12-27] MEDS: DIPHENHYDRAMINE HCL 50 MG/ML (1ML) VIAL IV ×3 (05:39→19:57)
--- NOTE | 2022-12-27 07:44 | CM.NOTE ---
Rounds made with doyle Bernal to do debridement today at 11:00, PT and OT working with pt. Discussed with pt importance of working with therapy.
[2022-12-27] MEDS: OXYCODONE HCL 5 MG TABLET 10 MG PO ×3 (08:24→19:57)
[2022-12-27] MEDS: CEFTRIAXONE 2,000 MG in 0.9 % SODIUM CHLORIDE 100 ML 200 MG IV (08:24)
[2022-12-27] MEDS: 0.9 % SODIUM CHLORIDE 250 ML 100 ML IV (08:24)
[2022-12-27] MEDS: CARVEDILOL 12.5 MG TABLET PO ×2 (08:24→21:02)
[2022-12-27] MEDS: LINEZOLID IN DEXTROSE 5% 600 MG/300 ML PIGGYBACK 300 MG IV (09:28)
[2022-12-27] MEDS: INSULIN DETEMIR 300 UNIT/3 ML INSULN.PEN 120 UNIT SUBQ ×2 (09:30→21:30)
--- NOTE | 2022-12-27 10:46 | P.PN_ITS ---
Progress Note: Subjective Subjective Interval history: Still some itching, fairly stable otherwise Exam Constitutional Vital Signs, click to edit/add: Last Vital Signs Temp 97.6 F 12/27/22 05:43 Pulse 79 12/27/22 05:43 Resp 18 12/27/22 05:43 BP 136/66 12/27/22 05:43 Pulse Ox 91 L 12/27/22 05:43 O2 Del Method Home BIPAP / CPAP 12/27/22 05:43 Documenting provider has reviewed patient's vital signs: yes HENMT Common normals: normocephalic Chest Common normals: inspection of chest normal Respiratory Common normals: normal respiratory effort, no retractions and clear to auscultation bilaterally Auscultation: diminished lung sounds Cardio Rate: tachycardic GI Common normals: Normal to inspection, nondistended, normoactive bowel sounds present Extremity Common normals: abnormal to inspection (Significant dressing in place right lower extremity) Progress Note: Objective Labs Labs: Short CBC 12/27/22 Range/Units 03:54 WBC 5.8 (4.0-11.0) 10^3/uL Hgb 8.7 L (14.0-18.0) g/dL Hct 29.7 L (42.0-54.0) % Plt Count 250 (150-450) 10^3/uL BMP 12/27/22 03:54 Sodium 136 Potassium 4.2 Chloride 101 Carbon Dioxide 26.4 BUN 51.0 H Creatinine 2.00 H Glucose 150 H Calcium 8.6 Progress Note: A&P Assessment and Plan (1) Afib: (2) Cellulitis: (3) CHF (congestive heart failure): (4) Diabetes: (5) Hypertension: (6) Obesity: (7) Sleep apnea: Plan Fever, chills, elevated ESR secondary to right lower extremity cellulitis, progressive, stable- -blood cultures positive for staph. Continue with antibiotics we will adjust off the vancomycin. Bleeding from right foot- Plan per podiatry is to go to the OR later today for debridement Poorly controlled diabetes mellitus- cotn to monitor Hyponatremia--Monitor daily, L Chronic kidney disease-stage II- up dl again to day - better today. Continue to monitor. kidney function improved today. Will be off the Vanco which may assist as well Hypertension-continue with home medications Morbid [id number]-[id number] management needs more IV ab till cx back
[2022-12-27] MEDS: LACTATED RINGER'S SOLUTION 1,000 ML 50 ML IV (10:50)
[2022-12-27] MEDS: VANCOMYCIN HCL 500 MG VIAL TOPICAL (14:11)
[2022-12-27] MEDS: THROMBI-GEL SIZE 40 HEMOSTAT 1 EACH TOPICAL (14:13)
--- NOTE | 2022-12-27 15:00 | PM.ORONB ---
Brief Operative Note Date of procedure: 12/27/22 Pre-op diagnosis: Right ankle osteomyelitis, cellulitis, ulcer with bone necrosis Post-op diagnosis: same Procedure: Procedures performed: Incision/debridement of bone right tibia and calcaneus, implantation of nonbiodegradable antibiotic cement, application of short leg splint Intraoperative findings: Hematoma with small amount of purulence was noted within the ankle space. Wound probed to the tibia and calcaneus. Bone was very soft and unable to hold any pins/fixation. Procedure in detail: Patient was identified in pre op and consent was reviewed. Correct side and site were identified and marked. Pre-op antibiotics were started. Patient was brought to OR suite and place on table in a supine position. General anesthesia was administered. Tourniquet applied. Operative extremity was prepped and draped in usual sterile fashion. Formal time-out was performed and the foot/ankle was elevated for several minutes and tourniquet inflated. Draining sinus over the lateral right ankle was excised and extended proximally and distally. The sinus did probe to bone. Full-thickness dissection was taken down to the tibia and hindfoot small amount of purulence was evacuated as was hematoma. All bleeders were coagulated. The bone of the foot and tibia were aggressively curetted until bleeding appropriately. Then the surgical site was irrigated with 3 L of normal saline on pulse lavage. A clean rongeur was used to obtain bone and tissue from the ankle to be sent to microbiology and pathology. Gelfoam and thrombin were placed into the surgical site a temporary pressure dressing was placed and the tourniquet was deflated. Then on the back table PMMA cement impregnated with vancomycin was prepared into beads. Once the beads were hard the temporary pressure dressing was removed and the beads were placed in the ankle space. Hemostasis was controlled and the incision was loosely closed in one layer. Multiple attempts were made to pin the calcaneus to the tibia for stability however it was clear that these pins could be easily removed and did not achieve deformity correction or stability therefore were explanted. A dry sterile dressing consisting of Xeroform on the incisions followed by 4 x 4 gauze, ABDs, and Kerlix were applied. Multiple layers of cast padding were then applied to ensure all bony prominences were well-padded. A plaster posterior splint was then applied which was held in place by Evan wraps. Capillary refill time to all digits was evaluated and had appropriate response. Patient tolerated the procedure and anesthesia well transferred to the recovery room with vital signs stable and brisk capillary refill to all digits. Postoperative plan: Discussed the case with Dr. Zazueta Patient did have repeat blood cultures and are awaiting the results and will remain on current antibiotics Patient ultimately will need a major amputation due to a nonfunctional, unstable and chronically infected ankle however will require some degree of optimization Keep splint clean dry and intact. Will follow Implants: PMMA cement with vancomycin Anesthesia: HEMAL Surgeon: Ángel Myers [employer] Laborer: Kip Zuluaga Estimated blood loss (mL): 50 Pathology: other (Bone from ankle) Condition: stable Disposition: floor
[2022-12-27] MEDS: SACUBITRIL/VALSARTAN 1 EACH TABLET 2 TAB PO ×2 (15:14→21:01)
[2022-12-27] MEDS: OMEPRAZOLE 40 MG CAPSULE.DR PO (15:14)
[2022-12-27] MEDS: GABAPENTIN 300 MG CAPSULE 600 MG PO ×2 (15:14→21:02)
[2022-12-27] MEDS: FUROSEMIDE 40 MG TABLET PO (15:15)
[2022-12-27] MEDS: INSULIN ASPART 300 UNIT/3 ML PEN SUBQ ×2 (17:35→21:03)
[2022-12-27] MEDS: LINEZOLID IN DEXTROSE 5% 600 MG/300 ML PIGGYBACK 100 MG IV (21:00)
[2022-12-27] MEDS: PROSTAT 15 GM PROTEIN/100 CAL 30 ML LIQUID PACKET PO (21:01)
[2022-12-28] MEDS: OXYCODONE HCL 5 MG TABLET 10 MG PO ×3 (00:31→20:05)
[2022-12-28] MEDS: DIPHENHYDRAMINE HCL 50 MG/ML (1ML) VIAL IV ×3 (00:31→20:07)
[2022-12-28] MEDS: TEMAZEPAM 15 MG CAPSULE 30 MG PO (00:31)
--- NOTE | 2022-12-28 00:41 | PC.NURSE ---
Rt foot has surgical dressing. clean, dry, and intact.
[2022-12-28 05:34] VITALS: BP 126/65; PULSE 98; RESP 18; TEMP 37.9; O2SAT 90
[2022-12-28 05:38] LABS: Basophils Percent Auto 0.6 % (0.2-2.0); Eosinophils Absolute Auto 0.2 10^3/uL (0.0-0.7); Eosinophils Percent Auto 2.8 % (0.9-7.0); Hematocrit 29.1 % (42.0-54.0); Hemoglobin 8.7 g/dL (14.0-18.0); Immature Granulocytes Abs Auto 0.05 10^3/uL (0.00-0.03); Immature Granulocytes Pct Auto 0.7 % (0.0-0.5); Lymphocytes Absolute Auto 0.7 10^3/uL (1.2-3.8); Mean Corpuscular HGB Conc 29.9 g/dL (29.9-35.2); Mean Corpuscular Hemoglobin 24.2 pg (25.9-34.0); Mean Corpuscular Volume 81.1 fL (80.0-94.0); Mean Platelet Volume 8.6 fL (9.5-13.5); Monocytes Absolute Auto 0.5 10^3/uL (0.3-0.8); Monocytes Percent Auto 7.6 % (1.7-12.0); Neutrophils Absolute Auto 5.3 10^3/uL (1.4-6.5); Neutrophils Percent Auto 78.3 % (43.0-75.0); Platelet Count 297 10^3/uL (150-450); Red Blood Count 3.59 10^6/uL (4.70-6.10); Red Cell Distribution Width 15.9 % (11.0-15.0); White Blood Count 6.8 10^3/uL (4.0-11.0)
[2022-12-28 05:41] VITALS: TEMP 37.9
[2022-12-28] MEDS: ACETAMINOPHEN 500 MG TABLET 1000 MG PO ×2 (05:41→18:04)
[2022-12-28 05:54] LABS: Anion Gap 13.2; BUN Creatinine Ratio 22.9; Calcium 8.6 mg/dL (8.5-10.1); Carbon Dioxide 24.7 mmol/L (21.0-32.0); Chloride 100 mmol/L (98-107); Estimated GFR (African America 41 (>=60); Estimated GFR (Non-African Ame 34 (>=60); Glucose 262 mg/dL (74-106); Potassium 4.9 mmol/L (3.5-5.1); Sodium 133 mmol/L (136-145)
[2022-12-28] MEDS: CEFTRIAXONE 2,000 MG in 0.9 % SODIUM CHLORIDE 100 ML 100 MG IV (08:08)
[2022-12-28] MEDS: GABAPENTIN 300 MG CAPSULE 600 MG PO ×2 (08:13→21:31)
[2022-12-28] MEDS: CARVEDILOL 12.5 MG TABLET PO ×2 (08:13→21:32)
[2022-12-28] MEDS: OMEPRAZOLE 40 MG CAPSULE.DR PO (08:13)
[2022-12-28] MEDS: SACUBITRIL/VALSARTAN 1 EACH TABLET 2 TAB PO ×2 (08:13→21:32)
[2022-12-28] MEDS: FUROSEMIDE 40 MG TABLET PO (08:14)
[2022-12-28] MEDS: INSULIN ASPART 300 UNIT/3 ML PEN SUBQ ×3 (08:16→21:32)
[2022-12-28 08:18] LABS: Bilirubin Urine NEGATIVE (NEGATIVE); Blood Urine LARGE (NEGATIVE); Clarity Urine CLEAR (CLEAR); Color Urine LT. YELLOW (YELLOW); Glucose Urine UA NEGATIVE (NEGATIVE); Ketones Urine NEGATIVE (NEGATIVE); Leukocyte Esterase Urine SMALL (NEGATIVE); Nitrite Urine NEGATIVE (NEGATIVE); Protein Urine 100 mg/dL (NEG/TRACE); Specific Gravity Urine 1.015 (1.005-1.025); Urobilinogen Urine 0.2 EU/dL (0.2-1.0); pH Urine 5.5 (5.0-9.0)
[2022-12-28 08:31] LABS: Bacteria Urine SMALL #/HPF (NONE SEEN); Cast Seen? SEEN #/LPF (NONE SEEN); Crystals Seen? None Seen #/HPF (None Seen); Hyaline Casts Urine FEW; Mucus Urine NONE SEEN (NONE SEEN); RBC Urine 50-75 #/HPF (0-2); Squamous Epithelial Cell Urine RARE #/LPF (NONE/RARE); Urine Culture Indicated ALREADY ORDERED
--- NOTE | 2022-12-28 09:06 | PM.PN ---
Progress Note: Subjective Subjective Interval history: Patient seen and evaluated at bedside this morning. POD #1 status post irrigation and debridement with application of antibiotic spacer right ankle (DOS: 12/27/2022). Denies pain in the right leg. Did report some fever and chills overnight but he feels that has resolved. Denies any shortness of breath or chest pain. Exam Narrative Exam Narrative: Right lower extremity splint left CDI. No signs of strikethrough drainage. Vascular: CFT brisk to all digits. No erythema or ecchymosis proximal to dressing. No ascending lymphangitis Neuro: Protective sensation to digits significantly decreased. Derm: RLE dressing left CDI. No open lesions proximal or distal to dressing. No rashes. MSK: Active range of motion of digits is absent. No pain with calf or thigh compression bilaterally. Constitutional Vital Signs, click to edit/add: Last Vital Signs Temp 100.3 F 12/28/22 05:41 Pulse 98 H 12/28/22 05:34 Resp 18 12/28/22 05:34 BP 126/65 12/28/22 05:34 Pulse Ox 90 L 12/28/22 05:34 O2 Del Method Room Air 12/28/22 05:34 Progress Note: Objective Labs Labs: Short CBC 12/28/22 Range/Units 04:30 WBC 6.8 (4.0-11.0) 10^3/uL Hgb 8.7 L (14.0-18.0) g/dL Hct 29.1 L (42.0-54.0) % Plt Count 297 (150-450) 10^3/uL BMP 12/28/22 04:30 Sodium 133 L Potassium 4.9 Chloride 100 Carbon Dioxide 24.7 BUN 46.0 H Creatinine 2.01 H Glucose 262 H Calcium 8.6 Urine 12/28/22 Range/Units 07:50 Urine Color Lt. 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 All questions answered to patient's satisfaction. Labs reviewed. Hemoglobin remains stable at 8.7. Repeat blood cultures pending. Positive for Staph aureus upon admission, repeated due to spiked fever and chills last night. Intra-Op cultures pending. Currently on Levaquin per IM for positive blood cultures, patient states he has an allergy to this and may be switched to an alternative therapy per IM recommendations. Leave dressing CDI. Dr. Myers spoke with orthopedist at [facility] who would be performing his below-knee amputation on the right lower extremity. Due to his in-availability this week, patient likely to be discharged to senior care facility once medically optimized and transported to [facility] for BKA from there when surgeon is available. We will continue to follow while in house.
[2022-12-28 09:27] LABS: A. calcoaceticus-baumannii Cpx NOT DETECTED (NOT DETECTE); Bacteroides fragilis NOT DETECTED (NOT DETECTE); Candida albicans NOT DETECTED (NOT DETECTE); Candida auris NOT DETECTED (NOT DETECTE); Candida glabrata NOT DETECTED (NOT DETECTE); Candida krusei NOT DETECTED (NOT DETECTE); Candida parapsilosis NOT DETECTED (NOT DETECTE); Candida tropicalis NOT DETECTED (NOT DETECTE); Cryptococcus neoformans/gattii NOT DETECTED (NOT DETECTE); Enterobacter cloacae complex NOT DETECTED (NOT DETECTE); Enterobacterales NOT DETECTED (NOT DETECTE); Enterococcus faecalis NOT DETECTED (NOT DETECTE); Enterococcus faecium NOT DETECTED (NOT DETECTE); Haemophilus influenzae NOT DETECTED (NOT DETECTE); Klebsiella aerogenes NOT DETECTED (NOT DETECTE); Klebsiella pneumoniae group NOT DETECTED (NOT DETECTE); Listeria monocytogenes NOT DETECTED (NOT DETECTE); Neisseria meningitidis NOT DETECTED (NOT DETECTE); Proteus spp. NOT DETECTED (NOT DETECTE); Pseudomonas aeruginosa NOT DETECTED (NOT DETECTE); Salmonella spp. NOT DETECTED (NOT DETECTE); Serratia marcescens NOT DETECTED (NOT DETECTE); Staphylococcus lugdunensis NOT DETECTED (NOT DETECTE); Stenotrophomonas maltophilia NOT DETECTED (NOT DETECTE); Streptococcus agalactiae NOT DETECTED (NOT DETECTE); Streptococcus pneumoniae NOT DETECTED (NOT DETECTE); Streptococcus pyogenes NOT DETECTED (NOT DETECTE); Streptococcus spp. NOT DETECTED (NOT DETECTE)
[2022-12-28] MEDS: INSULIN DETEMIR 300 UNIT/3 ML INSULN.PEN 120 UNIT SUBQ ×2 (09:32→21:32)
--- NOTE | 2022-12-28 10:08 | P.PN_ITS ---
Progress Note: Subjective Subjective Interval history: No complaints this morning other than did discuss he has had issues with linezolid when on it for prolonged periods of time in the past. He would like the antibiotics to be adjusted. Exam Constitutional Vital Signs, click to edit/add: Last Vital Signs Temp 100.3 F 12/28/22 05:41 Pulse 98 H 12/28/22 05:34 Resp 18 12/28/22 05:34 BP 126/65 12/28/22 05:34 Pulse Ox 90 L 12/28/22 05:34 O2 Del Method Room Air 12/28/22 05:34 Documenting provider has reviewed patient's vital signs: yes HENMT Common normals: normocephalic Chest Common normals: inspection of chest normal Respiratory Common normals: normal respiratory effort, no retractions and clear to auscultation bilaterally Auscultation: diminished lung sounds Cardio Rate: tachycardic GI Common normals: Normal to inspection, nondistended, normoactive bowel sounds present Extremity Common normals: abnormal to inspection (Significant dressing in place right lower extremity) Progress Note: Objective Labs Labs: Short CBC 12/28/22 Range/Units 04:30 WBC 6.8 (4.0-11.0) 10^3/uL Hgb 8.7 L (14.0-18.0) g/dL Hct 29.1 L (42.0-54.0) % Plt Count 297 (150-450) 10^3/uL BMP 12/28/22 04:30 Sodium 133 L Potassium 4.9 Chloride 100 Carbon Dioxide 24.7 BUN 46.0 H Creatinine 2.01 H Glucose 262 H Calcium 8.6 Urine 12/28/22 Range/Units 07:50 Urine Color Lt. 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 With concerns about linezolid long-term use, will change patient back to vancomycin. He will need this is an IV treatment long-term Bleeding from right foot- controlled after debridement Poorly controlled diabetes mellitus- cotn to monitor Hyponatremia--Monitor daily, Chronic kidney disease-stage II- up dl again to day - better today. Continue to monitor. kidney function improved today. Will be off the Vanco which may assist as well Hypertension-continue with home medications Morbid [id number]-[id number] management needs more IV ab till cx back
--- NOTE | 2022-12-28 10:09 | CM.NOTE ---
Rounds made with Dr. Zazueta. Mr. Aguilera and Dr. Zazueta discussed plan of care and needs. No discharge today but Dr. Zazueta would like Mr. Aguilera to determine what skilled facility he would like at discharge.
[2022-12-28 10:44] LABS: mecA/C DETECTED (NOT DETECTE)
[2022-12-28 10:45] LABS: Staphylococcus epidermidis DETECTED (NOT DETECTE); Staphylococcus spp. DETECTED (NOT DETECTE)
--- NOTE | 2022-12-28 11:27 | SWNOTE1 ---
LESLI spoke with case management and plan is for pt to go skilled somewhere prior to going to [facility] for BKA amputation. SW spoke with pt in regards to this. Pt was under the impression he will be here until late this week or even the weekend. SW let him know that he will need to go somewhere skilled before he is ready to go to [facility]. SW and pt spoke about facilities. Pt is alright with [facility], but needs a private room. SW did reach out to [facility] and due to his medicaid he will need to share a room. Pt does not want to do that. Pt would like to talk with Nat in admissions, SW let Nat know. Pt is also alright with [facility]. [facility] to send referral. Pt inquired about [facility] rehab as well. LESLI to see if they take medicaid. SW called and left voicemail. Pt also had concerns about being discharge on oral antibiotics. SW advised to address with doctor. LESLI also sent message to doctor. SW to follow up with all 3 facilities. Pt did participate with OT today. LESLI sent message to doctor to get a new order for physical therapy as well.
[2022-12-28] MEDS: VANCOMYCIN HCL 2,000 MG in 0.9 % SODIUM CHLORIDE 500 ML 250 MG IV (13:48)
--- NOTE | 2022-12-28 14:00 | SWNOTE1 ---
LESLI received email from Nat at [facility] and they are not able to accept due to the cost of taking pt and medicaid not re-imursing enough to what it would cost to take him. Medicaid only allows therapy 3 times a week for 3 minutes. [facility] [address].
[2022-12-28 15:57] VITALS: BP 141/86; PULSE 87; RESP 20; TEMP 36.6; O2SAT 94
[2022-12-28 21:27] VITALS: BP 125/63; PULSE 87; RESP 18; TEMP 37; O2SAT 90
[2022-12-29] MEDS: TEMAZEPAM 15 MG CAPSULE 30 MG PO ×2 (00:28→23:25)
[2022-12-29] MEDS: DIPHENHYDRAMINE HCL 50 MG/ML (1ML) VIAL IV ×5 (00:28→20:18)
[2022-12-29] MEDS: OXYCODONE HCL 5 MG TABLET 10 MG PO ×4 (00:28→20:18)
[2022-12-29 04:30] LABS: Basophils Percent Auto 0.5 % (0.2-2.0); Eosinophils Absolute Auto 0.2 10^3/uL (0.0-0.7); Eosinophils Percent Auto 3.6 % (0.9-7.0); Hematocrit 28.4 % (42.0-54.0); Hemoglobin 8.4 g/dL (14.0-18.0); Immature Granulocytes Abs Auto 0.06 10^3/uL (0.00-0.03); Immature Granulocytes Pct Auto 1.1 % (0.0-0.5); Lymphocytes Absolute Auto 0.9 10^3/uL (1.2-3.8); Lymphocytes Percent Auto 16.5 % (20.5-60.0); Mean Corpuscular HGB Conc 29.6 g/dL (29.9-35.2); Mean Corpuscular Hemoglobin 24.1 pg (25.9-34.0); Mean Corpuscular Volume 81.6 fL (80.0-94.0); Mean Platelet Volume 8.1 fL (9.5-13.5); Monocytes Absolute Auto 0.4 10^3/uL (0.3-0.8); Monocytes Percent Auto 6.9 % (1.7-12.0); Neutrophils Percent Auto 71.4 % (43.0-75.0); Platelet Count 263 10^3/uL (150-450); Red Blood Count 3.48 10^6/uL (4.70-6.10); White Blood Count 5.5 10^3/uL (4.0-11.0)
[2022-12-29 04:40] LABS: Erythrocyte Sedimentation Rate 120 mm/hr (<=20)
[2022-12-29 04:42] LABS: Anion Gap 10.8; BUN Creatinine Ratio 20.5; Calcium 8.6 mg/dL (8.5-10.1); Carbon Dioxide 27.3 mmol/L (21.0-32.0); Chloride 101 mmol/L (98-107); Estimated GFR (African America 43 (>=60); Estimated GFR (Non-African Ame 35 (>=60); Glucose 168 mg/dL (74-106); Potassium 4.1 mmol/L (3.5-5.1); Sodium 135 mmol/L (136-145)
[2022-12-29 04:46] LABS: C Reactive Protein 14.7 mg/dL (<=1.0)
[2022-12-29 06:00] VITALS: BP 119/68; PULSE 87; RESP 18; TEMP 37.2; O2SAT 90
--- NOTE | 2022-12-29 08:33 | CM.NOTE ---
Rounds made with Dr. Zazueta, would like pt to go to skilled facility at discharge. Pt is in agreement, SW working on placement. Pt also states I'm ok to discharge to home if she can't find placement.
--- NOTE | 2022-12-29 08:44 | P.PN_ITS ---
Progress Note: Subjective Subjective Interval history: No complaints, pain well controlled with oral medications Exam Constitutional Vital Signs, click to edit/add: Last Vital Signs Temp 99 F 12/29/22 06:00 Pulse 87 12/29/22 06:00 Resp 18 12/29/22 06:00 BP 119/68 12/29/22 06:00 Pulse Ox 90 L 12/29/22 06:00 O2 Del Method Room Air 12/29/22 06:00 Documenting provider has reviewed patient's vital signs: yes HENMT Common normals: normocephalic Chest Common normals: inspection of chest normal Respiratory Common normals: normal respiratory effort, no retractions and clear to auscultat ion bilaterally Auscultation: diminished lung sounds Cardio Rate: tachycardic GI Common normals: Normal to inspection, nondistended, normoactive bowel sounds present Extremity Common normals: abnormal to inspection (Significant dressing in place right lower extremity) Progress Note: Objective Labs Labs: Short CBC 12/29/22 Range/Units 04:23 WBC 5.5 (4.0-11.0) 10^3/uL Hgb 8.4 L (14.0-18.0) g/dL Hct 28.4 L (42.0-54.0) % Plt Count 263 (150-450) 10^3/uL BMP 12/29/22 04:23 Sodium 135 L Potassium 4.1 Chloride 101 Carbon Dioxide 27.3 BUN 40.0 H Creatinine 1.95 H Glucose 168 H Calcium 8.6 Progress Note: A&P Assessment and Plan (1) Afib: (2) Cellulitis: (3) CHF (congestive heart failure): (4) Diabetes: (5) Hypertension: (6) Obesity: (7) Sleep apnea: (8) Charcot's joint, right ankle and foot: (9) Type 2 diabetes mellitus with diabetic polyneuropathy: (10) Type 2 diabetes mellitus with foot ulcer: (11) 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 E Hypertension-continue with home medications Morbid ioyirvr-zhkyvx-jzgu management needs more IV ab till -we will need IV antibiotics long-term. Working on pl acement. Prior to below the knee amputation.cx back
[2022-12-29] MEDS: INSULIN ASPART 300 UNIT/3 ML PEN SUBQ ×3 (08:47→21:53)
[2022-12-29] MEDS: INSULIN DETEMIR 300 UNIT/3 ML INSULN.PEN 130 UNIT SUBQ ×2 (08:49→21:52)
[2022-12-29] MEDS: SACUBITRIL/VALSARTAN 1 EACH TABLET 2 TAB PO ×2 (08:58→21:52)
[2022-12-29] MEDS: GABAPENTIN 300 MG CAPSULE 600 MG PO ×2 (08:58→21:52)
[2022-12-29] MEDS: OMEPRAZOLE 40 MG CAPSULE.DR PO (08:58)
[2022-12-29] MEDS: CARVEDILOL 12.5 MG TABLET PO ×2 (08:58→21:52)
[2022-12-29] MEDS: FUROSEMIDE 40 MG TABLET PO (08:58)
--- NOTE | 2022-12-29 10:29 | PC.NURSE ---
[facility] notified for need of PICC line for IV Vancomycin
--- NOTE | 2022-12-29 10:53 | SWNOTE1 ---
SW did receive message from [facility] and they will submit to doctor to review, she will try to get back to me today. SW to send updates. Pt is getting PICC line.
--- NOTE | 2022-12-29 11:38 | P.PN_ITS ---
Progress Note: Subjective Subjective Interval history: Patient seen and evaluated at bedside this morning. POD #2 status post irrigation and debridement with application of antibiotic spacer right ankle (DOS: 12/27/2022). Denies pain in the right leg.? Did report some fever and chills again overnight but he feels that has resolved.? Denies any shortness of breath or chest pain. Stated that he does not want to go to residential facility and that he will be going home from here until he is able to undergo amputation. Exam Narrative Exam Narrative: Right lower extremity splint left CDI. No signs of strikethrough drainage. Vascular: CFT brisk to all digits. No erythema or ecchymosis proximal to dressing. No ascending lymphangitis Neuro: Protective sensation to digits significantly decreased. Derm: RLE dressing left CDI. No open lesions proximal or distal to dressing. No rashes. MSK: Active range of motion of digits is absent. No pain with calf or thigh compression bilaterally. Constitutional Vital Signs, click to edit/add: Last Vital Signs Temp 99 F 12/29/22 06:00 Pulse 87 12/29/22 06:00 Resp 18 12/29/22 06:00 BP 119/68 12/29/22 06:00 Pulse Ox 90 L 12/29/22 06:00 O2 Del Method Room Air 12/29/22 06:00 Progress Note: Objective Labs Labs: Short CBC 12/29/22 Range/Units 04:23 WBC 5.5 (4.0-11.0) 10^3/uL Hgb 8.4 L (14.0-18.0) g/dL Hct 28.4 L (42.0-54.0) % Plt Count 263 (150-450) 10^3/uL BMP 12/29/22 04:23 Sodium 135 L Potassium 4.1 Chloride 101 Carbon Dioxide 27.3 BUN 40.0 H Creatinine 1.95 H Glucose 168 H Calcium 8.6 Progress Note: A&P Assessment and Plan (1) Afib: (2) Cellulitis: (3) CHF (congestive heart failure): (4) Diabetes: (5) Hypertension: (6) Obesity: (7) Sleep apnea: (8) Charcot's joint, right ankle and foot: (9) Type 2 diabetes mellitus with diabetic polyneuropathy: (10) Type 2 diabetes mellitus with foot ulcer: (11) 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 All questions answered to patient's satisfaction. Labs reviewed. Hemoglobin 8.4 down from 8.7 yest. Repeat blood cultures showing staph epi in one of the samples. Intra-Op cultures pending, no organisms seen on Gram stain. Patient was on antibiotics at time of culture.. Switched from Levaquin back to Vanco. Scheduled for PICC line today for long- term IV antibiotics. Leave dressing CDI. Discussed with the patient considerations for being discharged to residential facility once medically optimized and transported to [facility] for BKA from there when Dr Duffy is available. Reiterated that his ankle is unstable and he is unable to bear any weight on the right lower extremity. This may cause some significant problems at home by himself. He still states that he wants to go home following this admission and would refuse rehab placement. I encouraged him to reconsider this and he said he would, but that he is already has his mindset on going home. He is stable for discharge/transfer from a lower extremity standpoint, with dressing intact and nonweightbearing to the right lower extremity. If he is discharged he should follow-up in the wound center with us 1 week afterwards. We will continue to follow while in house.
--- NOTE | 2022-12-29 11:43 | SWNOTE1 ---
LESLI called and left message for Naz at [facility]. LESLI spoke with pt in regards to discharge plans. He stated once his infection gets cleared up, he is out of here. SW let him know that we can set him up to go home with home health and IV's at discharge. Pt voiced he would like to wait and see if [facility] can accept. LESLI let him know [facility] can't accept. LESLI asked if he would like to continue to pursue [facility] or just [facility]. Pt stated just [facility] and voiced he is frustrated as he was told one thing from one physician and then something else for another physician. He stated he does NOT want to be at a facility for 2-3 months and wait to have BKA knee amputation. He stated he would rather be at home. Pt stated he is going to be calling the doctor at [facility] and speak to him directly to see when he can have the surgery. At this point LESLI has sent updates to [facility] rehab and pt would like to see if they can accept. If they can't he would like to go home with home health and get IV's at home.
[2022-12-29] MEDS: VANCOMYCIN HCL 2,000 MG in 0.9 % SODIUM CHLORIDE 500 ML 250 MG IV (13:59)
[2022-12-29 14:00] VITALS: BP 145/80; PULSE 89; RESP 20; TEMP 36.8; O2SAT 92
--- NOTE | 2022-12-29 14:36 | SWNOTE1 ---
LESLI sent referral to [facility] as pt has had them in past. LESLI trying to set up plan B in case [facility] does not work out. LESLI called and spoke with Myrna at [facility]. She stated she thinks doctor is leaning towards no, but has not received the 100% no. She stated the concern is re-imbursement as well and also she is not sure how long he would be able to stay there. She stated it may be more beneficial to get into rehab after his BKA amputation. LESLI to let pt know. LESLI updated nursing and doctor.
--- NOTE | 2022-12-29 15:47 | SWNOTE1 ---
SW called and spoke with [facility] and they did receive referral and are running benefits.
--- NOTE | 2022-12-29 15:50 | SWNOTE1 ---
LESLI called [facility] and they did receive fax and are reviewing.
[2022-12-29 21:25] VITALS: BP 110/65; PULSE 86; RESP 18; TEMP 37; O2SAT 90
[2022-12-30 05:23] LABS: BUN Creatinine Ratio 19.1; Calcium 8.5 mg/dL (8.5-10.1); Carbon Dioxide 29.3 mmol/L (21.0-32.0); Chloride 100 mmol/L (98-107); Estimated GFR (African America 49 (>=60); Estimated GFR (Non-African Ame 41 (>=60); Glucose 216 mg/dL (74-106); Potassium 4.3 mmol/L (3.5-5.1); Sodium 134 mmol/L (136-145)
[2022-12-30 05:49] VITALS: BP 152/71; PULSE 81; RESP 18; TEMP 36.5; O2SAT 90
[2022-12-30 08:00] VITALS: RESP 16
[2022-12-30] MEDS: CARVEDILOL 12.5 MG TABLET PO ×2 (08:25→20:11)
[2022-12-30] MEDS: GABAPENTIN 300 MG CAPSULE 600 MG PO ×2 (08:25→20:11)
[2022-12-30] MEDS: SACUBITRIL/VALSARTAN 1 EACH TABLET 2 TAB PO ×2 (08:26→20:10)
[2022-12-30] MEDS: OMEPRAZOLE 40 MG CAPSULE.DR PO (08:26)
[2022-12-30] MEDS: FUROSEMIDE 40 MG TABLET PO (08:26)
[2022-12-30] MEDS: INSULIN ASPART 300 UNIT/3 ML PEN SUBQ ×3 (08:28→21:17)
--- NOTE | 2022-12-30 08:36 | PM.PN ---
Progress Note: Subjective Subjective Interval history: Patient seen and evaluated at bedside this morning. POD #3 status post irrigation and debridement with application of antibiotic spacer right ankle (DOS: 12/27/2022). Denies pain in the right leg.? Denies any fever or chills last night.? Denies any shortness of breath or chest pain. States he is going home today. Exam Narrative Exam Narrative: Right lower extremity splint left CDI. No signs of strikethrough drainage. Vascular: CFT brisk to all digits. No erythema or ecchymosis proximal to dressing. No ascending lymphangitis Neuro: Protective sensation to digits significantly decreased. Derm: RLE dressing left CDI. No open lesions proximal or distal to dressing. No rashes. MSK: Active range of motion of digits is absent. No pain with calf or thigh compression bilaterally. Constitutional Vital Signs, click to edit/add: Last Vital Signs Temp 97.7 F 12/30/22 05:49 Pulse 81 12/30/22 05:49 Resp 18 12/30/22 05:49 BP 152/71 H 12/30/22 05:49 Pulse Ox 90 L 12/30/22 05:49 O2 Del Method Home BIPAP / CPAP 12/30/22 05:49 Progress Note: Objective Labs Labs: BMP 12/30/22 04:20 Sodium 134 L Potassium 4.3 Chloride 100 Carbon Dioxide 29.3 BUN 33.0 H Creatinine 1.73 H Glucose 216 H Calcium 8.5 Progress Note: A&P Assessment and Plan (1) Afib: (2) Cellulitis: (3) CHF (congestive heart failure): (4) Diabetes: (5) Hypertension: (6) Obesity: (7) Sleep apnea: (8) Charcot's joint, right ankle and foot: (9) Type 2 diabetes mellitus with diabetic polyneuropathy: (10) Type 2 diabetes mellitus with foot ulcer: (11) 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 All questions answered to patient's satisfaction. A.m. labs pending. Hgb 8.4 yesterday.. Repeat blood cultures showing staph epi in one of the samples. Intra-Op cultures pending, no organisms seen on Gram stain. Patient was on antibiotics at time of culture.. On IV Vanco. PICC line placed yesterday for long-term IV antibiotics. Leave dressing CDI. He is stable for discharge/transfer from a lower extremity standpoint, with dressing intact and nonweightbearing to the right lower extremity. Follow-up in the wound center with us 1 week s/p DC. Will coordinate with Dr. Duffy regarding BKA. We will continue to follow while in house.
--- NOTE | 2022-12-30 08:49 | P.DS_ITS ---
DS: Providers Provider Date of admission: 12/24/22 12:07 Primary care physician: Arnold Zazueta MD Consults: 12/23/22 Consult to Mailing Manager Routine Reason for consult:: alf 12/23/22 13:09 Consult to Podiatry Routine Consulting Provider: Ángel Myers Consult to Mailing Manager Routine Reason for consult:: alf Occupational Therapy Eval and Treat Routine Physical Therapy Eval and Treat Routine 12/28/22 12:01 Occupational Therapy Eval and Treat Routine Physical Therapy Eval and Treat Routine DS: Diagnosis Discharge Diagnosis (1) Afib: (2) Cellulitis: (3) CHF (congestive heart failure): (4) Diabetes: (5) Hypertension: (6) Obesity: (7) Sleep apnea: (8) Charcot's joint, right ankle and foot: (9) Type 2 diabetes mellitus with diabetic polyneuropathy: (10) Type 2 diabetes mellitus with foot ulcer: (11) 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 Bleeding from right foot- Poorly controlled diabetes mellitus- Hyponatremia Chronic kidney disease-stage II Hypertension Morbid obesity DS: Summary Hospital Course Hospital Course: Was admitted with bleeding from foot. Pressure was applied initially to get bleeding to stop. Likely cellulitis from appearance of foot. Blood cultures obtained. Blood culture did return positive for staph. Antibiotics were adjusted to try to protect his kidneys but he had a reaction to clindamycin and then to linezolid. So With vancomycin. His kidney function is improving. He needs long course of antibiotics. Patient did have debridement. Culture from that is still pending but so far negative. At this point he can be discharged to home although rehab will be a better place for him no rebound have beds available. He is to continue with IV vancomycin. Follow-up with orthopedics for below the knee amputation. Medications see list. Follow-up with me virtually secondary to patient inability to ambulate. Time Spent with Patient Time attestation: Total time spent providing and/or coordinating discharge services: Exam Narrative Exam Narrative: Right lower extremity splint left CDI. No signs of strikethrough drainage. Vascular: CFT brisk to all digits. No erythema or ecchymosis proximal to dressing. No ascending lymphangitis Neuro: Protective sensation to digits significantly decreased. Derm: RLE dressing left CDI. No open lesions proximal or distal to dressing. No rashes. MSK: Active range of motion of digits is absent. No pain with calf or thigh compression bilaterally. Constitutional Vital Signs, click to edit/add: Last Vital Signs Temp 97.7 F 12/30/22 05:49 Pulse 81 12/30/22 05:49 Resp 16 12/30/22 08:00 BP 152/71 H 12/30/22 05:49 Pulse Ox 90 L 12/30/22 05:49 O2 Del Method Home BIPAP / CPAP 12/30/22 05:49 DS: Data Data Completed and Pending Labs on day of discharge: Labs from last 24 hours 12/30/22 04:20 Sodium 134 L Potassium 4.3 Chloride 100 Carbon Dioxide 29.3 Anion Gap 9.0 BUN 33.0 H Creatinine 1.73 H Est GFR ( Amer) 49 L Est GFR (Non-Af Amer) 41 L BUN/Creatinine Ratio 19.1 Glucose 216 H Calcium 8.5 Preliminary micro results at discharge 12/27/22 11:16 Blood Culture Result 1 - Preliminary Blood Staphylococcus epidermidis 12/27/22 13:25 Tissue Culture - Preliminary Ankle Right 12/27/22 13:17 - Preliminary Ankle Right 12/27/22 13:17 - Preliminary Ankle Right 12/27/22 11:21 - Preliminary Blood NO GROWTH AT 36-48 HOURS. FINAL TO FOLLOW. Discharge Plan Discharge Disposition: Xfer SNF Discharge Medications: New vancomycin 1,000 mg recon soln 2,000 mg IV QDAY 30 Days Rx Instructions: Pharmacy to adjust dose based on vanco levels oxycodone 5 mg Tablet 10 mg PO Q4H PRN (Reason: Pain Scale 7-10) Qty: 240 0RF vancomycin in 0.9 % sodium chl 1.25 gram/250 mL solution 1.25 g IV Q24H Continued Eliquis 5 mg tablet 5 mg PO BID carvedilol 12.5 mg tablet 12.5 mg PO Q12H clonidine 0.3 mg/24 hr patch weekly 1 patch topical .SUNDAYS furosemide 40 mg tablet 40 mg PO DAILY gabapentin 300 mg capsule 600 mg PO Q12H Toukatie AldrichoStar U-300 Insulin 300 unit/mL (1.5 mL) insulin pen 300 unit SUBCUT Q24H Humalog KwikPen Insulin 200 unit/mL (3 mL) insulin pen 30 unit SUBCUT ACHS pantoprazole 40 mg tablet,delayed release (DR/EC) 40 mg PO DAILY Entresto 24-26 mg tablet 1 tab PO BID Discontinued amlodipine 10 mg tablet 10 mg PO BEDTIME Forms: Portal Instructions Follow Up Appointments: Follow up appt. with Dr. Zazueta Office#: [phone]
--- NOTE | 2022-12-30 09:41 | CM.NOTE ---
Rounds made with kimberley Bernal for pt to discharge to home with HH and termite renewal inspector antibiotics.
--- NOTE | 2022-12-30 10:01 | PT.DAILY ---
Physical Therapy Daily Note PT Daily Note/Assess Start: 12/30/22 10:00 Freq: Status: Active Protocol: Document 12/30/22 10:00 RAAD (Rec: 12/30/22 10:01 RAAD [id number]) Visit Not Completed Visit Not Completed Visit Not Completed Due to: Pt refusing Other Reason Visit Not Completed Pt refusing this morning as he is being DC to home with IV antibiotics until he is able to have his amputation. Physical Therapy Daily Note/Assessment Time In/Time Out Time In 09:45 Time Out 09:46 GG. Functional Abilities and Goals-Complete for Swing Bed Patients Only [id number]. Self-Care [id number]. Mobility
[2022-12-30] MEDS: ACETAMINOPHEN 500 MG TABLET 1000 MG PO (10:06)
[2022-12-30] MEDS: INSULIN DETEMIR 300 UNIT/3 ML INSULN.PEN 130 UNIT SUBQ (10:07)
[2022-12-30 11:10] LABS: Vancomycin Trough 15.3 ug/mL (5.0-20.0)
--- NOTE | 2022-12-30 11:35 | SWNOTE1 ---
[facility] is not able to accept, they ran pt's benefits and as of December 27 he has [place] medicaid. SW to let pt know. SW sent referral to [address] and they cannot accept. Referral sent to [facility].
--- NOTE | 2022-12-30 12:05 | SWNOTE1 ---
[facility] is not able to accept as they do not have the staff to start care tomorrow.
--- NOTE | 2022-12-30 12:07 | SWNOTE1 ---
[facility] does not acccept that insurance, [facility] does not accept insurance.
--- NOTE | 2022-12-30 12:13 | SWNOTE1 ---
[facility] not [facility] due to insurance. [facility] does not accept insurance either.
--- NOTE | 2022-12-30 13:17 | SWNOTE1 ---
OMERO spoke with [facility] and they would not be able to see patient until 01/03/23. OMERO also asked her if pt would be covered if he went home to be an [facility] pt and then switched to home health. She was not sure what would happen. Omero to talk with director of case management and doctor. OMERO to also speak with patient to see if an [facility] pt is an option.
--- NOTE | 2022-12-30 13:56 | SWNOTE1 ---
LESLI updated patient and he can't be an [facility] pt, has no transportation. LESLI updated director of case managment and director of med/surge/ICU. SW updated nursing as well. Update sent to doctor as well.
[2022-12-30 14:00] VITALS: BP 126/69; PULSE 80; RESP 14; TEMP 36.5; O2SAT 91
[2022-12-30] MEDS: VANCOMYCIN HCL 2,000 MG in 0.9 % SODIUM CHLORIDE 500 ML 250 MG IV (14:03)
[2022-12-30] MEDS: OXYCODONE HCL 5 MG TABLET 10 MG PO ×2 (14:31→20:11)
[2022-12-30] MEDS: DIPHENHYDRAMINE HCL 50 MG/ML (1ML) VIAL IV ×2 (14:31→20:11)
--- NOTE | 2022-12-30 15:52 | SWNOTE1 ---
Doctor would like SW to reach out to administration. LESLI reported to director of case management. SW reached out to [facility] and his insurance does not cover a nurse to come in from them. [facility] can have someone come out on Monday to do a teaching and then no home health company would be needed. They could NOT come this weekend as nobody is available. Pt would then be responsible to come in for lab work and dressing changes. SW to talk with director and pt. LESLI and director of case management attempted 3 other home health companies that were listed on the insurance provider website, one could accept, but could not have a nurse out until a week or 2. At this time SW and director spoke with pt and he feels he could come in once a week for troughs. Director updated doctor. LESLI called and spoke with [employer], Abbe, and he stated now that they could provide a nurse to come to the home for lab work and dressing changes, but no nurse available until next week. LESLI asked if a person can do the training Monday for sure? He stated she is not available right now, but she is back on Monday and he will know then. IF the person doing the training is available Monday, pt will get trained and discharged on Monday. LESLI updated nursing and director of case management.
[2022-12-30 19:52] VITALS: RESP 14
[2022-12-30 20:51] VITALS: BP 153/70; PULSE 81; RESP 20; TEMP 36.9; O2SAT 94
[2022-12-31] MEDS: DIPHENHYDRAMINE HCL 50 MG/ML (1ML) VIAL IV ×4 (01:11→21:23)
[2022-12-31] MEDS: OXYCODONE HCL 5 MG TABLET 10 MG PO ×4 (01:11→21:22)
[2022-12-31 05:16] VITALS: BP 115/40; PULSE 91; RESP 18; TEMP 37.2; O2SAT 92
[2022-12-31 05:17] LABS: C Reactive Protein 8.1 mg/dL (<=1.0)
[2022-12-31 05:17] LABS: Anion Gap 10.5; BUN Creatinine Ratio 18.7; Calcium 8.7 mg/dL (8.5-10.1); Carbon Dioxide 29.7 mmol/L (21.0-32.0); Chloride 99 mmol/L (98-107); Estimated GFR (African America 50 (>=60); Estimated GFR (Non-African Ame 41 (>=60); Glucose 216 mg/dL (74-106); Potassium 4.2 mmol/L (3.5-5.1); Sodium 135 mmol/L (136-145)
[2022-12-31 05:24] LABS: Erythrocyte Sedimentation Rate >130 mm/hr (<=20)
--- NOTE | 2022-12-31 08:05 | P.PN_ITS ---
Progress Note: Subjective Subjective Interval history: Only issue this morning is the persistent pruritus, no rash Exam Constitutional Vital Signs, click to edit/add: Last Vital Signs Temp 98.9 F 12/31/22 05:16 Pulse 91 H 12/31/22 05:16 Resp 18 12/31/22 05:16 BP 115/40 L 12/31/22 05:16 Pulse Ox 92 L 12/31/22 05:16 O2 Del Method Room Air 12/31/22 05:16 Documenting provider has reviewed patient's vital signs: yes HENMT Common normals: normocephalic Chest Common normals: inspection of chest normal Respiratory Common normals: normal respiratory effort, no retractions and clear to aus cultation bilaterally Auscultation: diminished lung sounds Cardio Rate: tachycardic GI Common normals: Normal to inspection, nondistended, normoactive bowel sounds present Extremity Common normals: abnormal to inspection (Significant dressing in place right lower extremity) Progress Note: Objective Labs Labs: [facility] 12/31/22 04:40 Sodium 135 L Potassium 4.2 Chloride 99 Carbon Dioxide 29.7 BUN 32.0 H Creatinine 1.71 H Glucose 216 H Calcium 8.7 Progress Note: A&P Assessment and Plan (1) Afib: (2) Cellulitis: (3) CHF (congestive heart failure): (4) Diabetes: (5) Hypertension: (6) Obesity: (7) Sleep apnea: (8) Charcot's joint, right ankle and foot: (9) Type 2 diabetes mellitus with diabetic polyneuropathy: (10) Type 2 diabetes mellitus with foot ulcer: (11) 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: (12) Subacute osteomyelitis, right ankle and foot: Plan Fever, chills, elevated ESR secondary to right lower extremity cellulitis, progressive, stable- -repeat blood cultures so far just showing staph epi and 1 culture so likely contaminant, will check on final wound cultures later today, unable to be discharged secondary to arranging home health, no bed available for rehab, will discuss with orthopedics next week about possible below the knee amputation with cultures being negative Bleeding from right foot- controlled after debridement Poorly controlled diabetes mellitus- cotn to monitor-We will adjust dose today h Hyponatremia--Monitor daily, Chronic kidney disease-stage II- - need to continue to monitor Chem-8 secondary to being on vancomycin , improved somewhat today. E Hypertension-continue with home medications Morbid pdpmbid-ohcjft-yuzv management Pruritus persisting-we will add low-dose doxepin
[2022-12-31] MEDS: CARVEDILOL 12.5 MG TABLET PO ×2 (08:24→21:18)
[2022-12-31] MEDS: FUROSEMIDE 40 MG TABLET PO (08:24)
[2022-12-31] MEDS: OMEPRAZOLE 40 MG CAPSULE.DR PO (08:24)
[2022-12-31] MEDS: SACUBITRIL/VALSARTAN 1 EACH TABLET 2 TAB PO ×2 (08:24→21:17)
[2022-12-31] MEDS: INSULIN ASPART 300 UNIT/3 ML PEN SUBQ ×4 (08:24→21:18)
[2022-12-31] MEDS: DOXEPIN HCL 10 MG CAPSULE PO (08:24)
[2022-12-31] MEDS: GABAPENTIN 300 MG CAPSULE 600 MG PO ×2 (08:24→21:18)
--- NOTE | 2022-12-31 09:07 | PT.DAILY ---
Physical Therapy Daily Note PT Daily Note/Assess Start: 12/30/22 10:00 Freq: Status: Active Protocol: Document 12/31/22 08:30 JOSETTE (Rec: 12/31/22 09:07 JOSETTE [id number]) Physical Therapy Daily Note/Assessment Time In/Time Out Time In 08:30 Time Out 09:01 Pain In Pain N/A Pain Out Pain N/A Subjective Subjective Ankle hurts; does not rate. Overall no other pain. Wants to get washed up. Agreeable to PT. Therapeutic Exercise Time Therapeutic Exercise Minutes (minutes) 15 Therapeutic Exercise Units 1 Therapeutic Exercise Treatment Therapeutic Exercise Treatment Swapped out red bands for green band. Completed UE band exercise program with 10-15 reps each. AROM on L LE 10 reps each Therapeutic Activity Time Therapeutic Activity Minutes (minutes) 15 Therapeutic Activity Units 1 Therapeutic Activity Treatment Bed Mobility Ability Modified Independent Therapeutic Activity Comments Patient completes rolling to each side 3x each using rails of bed mod. independent. Patient then able to use rails and bridge up to pull self up into bed mod. independent. Total Physical Therapy Time Total Therapy Minutes 30 Total Physical Therapy Units 2 Summary Daily Note Summary Demonstrates improved participation to PT this date. Has good ability with bed mobility. Progressed UE program from red band to green band to promote improved strength.
[2022-12-31] MEDS: INSULIN DETEMIR 300 UNIT/3 ML INSULN.PEN 130 UNIT SUBQ ×2 (12:51→21:18)
[2022-12-31] MEDS: VANCOMYCIN HCL 2,000 MG in 0.9 % SODIUM CHLORIDE 500 ML 250 MG IV (12:57)
[2022-12-31 14:00] VITALS: BP 133/76; PULSE 85; RESP 18; TEMP 36.6
[2022-12-31 19:59] VITALS: BP 127/64; PULSE 84; RESP 18; TEMP 36.7
[2022-12-31] MEDS: TEMAZEPAM 15 MG CAPSULE 30 MG PO (21:22)
[2023-01-01] MEDS: DOXEPIN HCL 10 MG CAPSULE PO (00:09)
[2023-01-01 04:56] VITALS: BP 150/71; RESP 18; TEMP 36.6; O2SAT 97
[2023-01-01 05:01] LABS: Anion Gap 9.6; BUN Creatinine Ratio 17.2; Calcium 8.5 mg/dL (8.5-10.1); Carbon Dioxide 31.8 mmol/L (21.0-32.0); Chloride 98 mmol/L (98-107); Estimated GFR (African America 51 (>=60); Estimated GFR (Non-African Ame 42 (>=60); Glucose 268 mg/dL (74-106); Potassium 4.4 mmol/L (3.5-5.1); Sodium 135 mmol/L (136-145)
--- NOTE | 2023-01-01 07:37 | P.PN_ITS ---
Progress Note: Subjective Subjective Interval history: Doxepin seems to help with the itch but not completely Exam Constitutional Vital Signs, click to edit/add: Last Vital Signs Temp 97.9 F 01/01/23 04:56 Pulse 84 12/31/22 19:59 Resp 18 01/01/23 04:56 BP 150/71 H 01/01/23 04:56 Pulse Ox 97 01/01/23 04:56 O2 Del Method Room Air 01/01/23 04:56 Documenting provider has reviewed patient's vital signs: yes HENMT Common normals: normocephalic Chest Common normals: inspection of chest normal Respiratory Common normals: normal respiratory effort, no retractions and clear to auscultation bilaterally Auscultation: diminished lung sounds Cardio Rate: tachycardic GI Common normals: Normal to inspection, nondistended, normoactive bowel sounds present Extremity Common normals: abnormal to inspection (Significant dressing in place right lower extremity) Progress Note: Objective Labs Labs: [facility] 01/01/23 04:10 Sodium 135 L Potassium 4.4 Chloride 98 Carbon Dioxide 31.8 BUN 29.0 H Creatinine 1.69 H Glucose 268 H Calcium 8.5 Progress Note: A&P Assessment and Plan (1) Afib: (2) Cellulitis: (3) CHF (congestive heart failure): (4) Diabetes: (5) Hypertension: (6) Obesity: (7) Sleep apnea: (8) Charcot's joint, right ankle and foot: (9) Type 2 diabetes mellitus with diabetic polyneuropathy: (10) Type 2 diabetes mellitus with foot ulcer: (11) 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: (12) Subacute osteomyelitis, right ankle and foot: Plan Fever, chills, elevated ESR secondary to right lower extremity cellulitis, progressive, stable- -repeat blood cultures so far just showing staph epi and 1 culture so likely contaminant, will check on final wound cultures later today, unable to be discharged secondary to arranging home health, no bed available for rehab, will discuss with orthopedics next week about possible below the knee amputation with cultures being negative Bleeding from right foot- controlled after debridement Poorly controlled diabetes mellitus- cotn to monitor-stable Hyponatremia--Monitor daily, Chronic kidney disease-stage II- -stable Hypertension-continue with home medications Morbid [id number]-htmb management Pruritus persisting-we will add low-dose doxepin
[2023-01-01] MEDS: SACUBITRIL/VALSARTAN 1 EACH TABLET 2 TAB PO ×2 (12:46→21:33)
[2023-01-01] MEDS: GABAPENTIN 300 MG CAPSULE 600 MG PO ×2 (12:47→21:33)
[2023-01-01] MEDS: FUROSEMIDE 40 MG TABLET PO (12:47)
[2023-01-01] MEDS: OMEPRAZOLE 40 MG CAPSULE.DR PO (12:47)
[2023-01-01] MEDS: DOXEPIN HCL 25 MG CAPSULE PO (12:47)
[2023-01-01] MEDS: CARVEDILOL 12.5 MG TABLET PO ×2 (12:48→21:33)
[2023-01-01] MEDS: INSULIN DETEMIR 300 UNIT/3 ML INSULN.PEN 130 UNIT SUBQ ×2 (12:48→21:37)
[2023-01-01] MEDS: INSULIN ASPART 300 UNIT/3 ML PEN SUBQ ×3 (12:48→21:36)
[2023-01-01] MEDS: VANCOMYCIN HCL 2,000 MG in 0.9 % SODIUM CHLORIDE 500 ML 250 MG IV (13:10)
[2023-01-01] MEDS: OXYCODONE HCL 5 MG TABLET 10 MG PO ×2 (13:11→21:34)
[2023-01-01] MEDS: DIPHENHYDRAMINE HCL 50 MG/ML (1ML) VIAL IV ×2 (13:15→21:34)
[2023-01-01 14:26] VITALS: BP 147/72; PULSE 86; RESP 18; TEMP 37; O2SAT 93
[2023-01-01 21:04] VITALS: BP 117/72; PULSE 83; RESP 18; TEMP 36.4; O2SAT 91
[2023-01-01 21:11] LABS: Glucometer 222 mg/dL (74-106)
[2023-01-01] MEDS: TEMAZEPAM 15 MG CAPSULE 30 MG PO (21:34)
[2023-01-02] MEDS: DOXEPIN HCL 25 MG CAPSULE PO ×3 (00:51→17:29)
[2023-01-02 04:29] VITALS: BP 150/68; PULSE 83; RESP 18; TEMP 36.6; O2SAT 94
[2023-01-02 04:56] LABS: Anion Gap 7.9; BUN Creatinine Ratio 16.7; Calcium 8.3 mg/dL (8.5-10.1); Carbon Dioxide 33.5 mmol/L (21.0-32.0); Chloride 98 mmol/L (98-107); Estimated GFR (African America 49 (>=60); Estimated GFR (Non-African Ame 40 (>=60); Glucose 248 mg/dL (74-106); Potassium 4.4 mmol/L (3.5-5.1); Sodium 135 mmol/L (136-145)
--- NOTE | 2023-01-02 07:25 | P.DS_ITS ---
DS: Providers Provider Date of admission: 12/24/22 12:07 Primary care physician: Arnold Zazueta MD Consults: 12/23/22 Consult to Bacteriologist Food Routine Reason for consult:: [facility] 12/23/22 13:09 Consult to Podiatry Routine Consulting Provider: Ángel Myers Consult to Bacteriologist Food Routine Reason for consult:: [facility] Occupational Therapy Eval and Treat Routine Physical Therapy Eval and Treat Routine 12/28/22 12:01 Occupational Therapy Eval and Treat Routine Physical Therapy Eval and Treat Routine DS: Diagnosis Discharge Diagnosis (1) Afib: (2) Cellulitis: (3) CHF (congestive heart failure): (4) Diabetes: (5) Hypertension: (6) Obesity: (7) Sleep apnea: (8) Charcot's joint, right ankle and foot: (9) Type 2 diabetes mellitus with diabetic polyneuropathy: (10) Type 2 diabetes mellitus with foot ulcer: (11) 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 Pressure was applied initially to get bleeding to stop. Likely cellulitis from appearance of foot. Blood cultures obtained. Blood culture did return positive for staph. Antibiotics were adjusted to try to protect his kidneys but he had a reaction to clindamycin and then to linezolid. So With vancomycin. His kidney function is improving. He needs long course of antibiotics. Patient did have debridement. Culture from that is still pending but so far negative. At this point he can be discharged to home although rehab will be a better place for him no rebound have beds available. He is to continue with IV vancomycin. Follow-up with orthopedics for below the knee amputation. Medications see list. Follow-up with me virtually secondary to patient inability to ambulate. [plan today is either home [facility] infusion company or transfer for BKA Time Spent with Patient Time attestation: Total time spent providing and/or coordinating discharge services: Exam Constitutional Vital Signs, click to edit/add: Last Vital Signs Temp 97.8 F 01/02/23 04:29 Pulse 83 01/02/23 04:29 Resp 18 01/02/23 04:29 BP 150/68 H 01/02/23 04:29 Pulse Ox 94 L 01/02/23 04:29 O2 Del Method BIPAP 01/02/23 04:29 DS: Data Data Completed and Pending Labs on day of discharge: Labs from last 24 hours 01/02/23 01/01/23 04:35 20:59 Sodium 135 L Potassium 4.4 Chloride 98 Carbon Dioxide 33.5 H Anion Gap 7.9 BUN 29.0 H Creatinine 1.74 H Est GFR ( Amer) 49 L Est GFR (Non-Af Amer) 40 L BUN/Creatinine Ratio 16.7 Glucose 248 H Calcium 8.3 L POC Glucose 222 H Preliminary micro results at discharge 12/27/22 13:17 - Preliminary Ankle Right 12/28/22 07:38 - Preliminary Blood 12/28/22 07:30 Blood Culture Result 1 - Preliminary Blood 12/27/22 11:16 Blood Culture Result 1 - Preliminary Blood Staphylococcus epidermidis 12/27/22 13:17 - Preliminary Ankle Right 12/27/22 11:21 - Preliminary Blood NO GROWTH AT 36-48 HOURS. FINAL TO FOLLOW. Discharge Plan Discharge Disposition: Home, Self-Care Discharge Medications: New vancomycin 1,000 mg recon soln 2,000 mg IV QDAY 30 Days Rx Instructions: Pharmacy to adjust dose based on vanco levels oxycodone 5 mg Tablet 10 mg PO Q4H PRN (Reason: Pain Scale 7-10) Qty: 240 0RF vancomycin in 0.9 % sodium chl 1.25 gram/250 mL solution 1.25 g IV Q24H Continued Eliquis 5 mg tablet 5 mg PO BID carvedilol 12.5 mg tablet 12.5 mg PO Q12H clonidine 0.3 mg/24 hr patch weekly 1 patch topical .SUNDAYS furosemide 40 mg tablet 40 mg PO DAILY gabapentin 300 mg capsule 600 mg PO Q12H Noemy Mariano U-300 Insulin 300 unit/mL (1.5 mL) insulin pen 300 unit SUBCUT Q24H Humalog KwikPen Insulin 200 unit/mL (3 mL) insulin pen 30 unit SUBCUT ACHS pantoprazole 40 mg tablet,delayed release (DR/EC) 40 mg PO DAILY Entresto 24-26 mg tablet 1 tab PO BID Discontinued amlodipine 10 mg tablet 10 mg PO BEDTIME Forms: Portal Instructions Follow Up Appointments: Follow up appt. with Dr. Zazueta Office#: [phone]
[2023-01-02] MEDS: INSULIN ASPART 300 UNIT/3 ML PEN SUBQ ×3 (07:58→18:10)
[2023-01-02] MEDS: CARVEDILOL 12.5 MG TABLET PO (08:59)
[2023-01-02] MEDS: GABAPENTIN 300 MG CAPSULE 600 MG PO (08:59)
[2023-01-02] MEDS: SACUBITRIL/VALSARTAN 1 EACH TABLET 2 TAB PO (08:59)
[2023-01-02] MEDS: FUROSEMIDE 40 MG TABLET PO (08:59)
[2023-01-02] MEDS: OMEPRAZOLE 40 MG CAPSULE.DR PO (08:59)
[2023-01-02] MEDS: INSULIN DETEMIR 300 UNIT/3 ML INSULN.PEN 130 UNIT SUBQ (09:04)
--- NOTE | 2023-01-02 09:44 | PT.DAILY ---
Physical Therapy Daily Note PT Daily Note/Assess Start: 12/30/22 10:00 Freq: Status: Active Protocol: Document 01/02/23 09:35 RAAD (Rec: 01/02/23 09:44 RAAD [id number]) Physical Therapy Daily Note/Assessment Time In/Time Out Time In 09:10 Time Out 09:35 Pain In Pain N/A Pain Out Pain N/A Subjective Subjective Pt supine upon arrival. Agrees to PT. Reports he could either be going home today or transferred to [facility] - unsure at this time. Therapeutic Exercise Time Therapeutic Exercise Minutes (minutes) 8 Therapeutic Exercise Units 1 Therapeutic Exercise Treatment Therapeutic Exercise Treatment Bilat UE strengthening ex complete 10x ea with GTB. Therapeutic Activity Time Therapeutic Activity Minutes (minutes) 15 Therapeutic Activity Units 1 Therapeutic Activity Treatment Bed Mobility Ability Modified Independent Therapeutic Activity Comments Pt transfers from supine>sit Lety with assistance for catheter lines/moving. Pt sits EOB 12 min to wash upper body , face, hair, and therapist assist with back - with set up only. Gown changed with set up needed. Pt brushes teeth with set up needed. Sit>supine Lety. Rolls side to side so therapist can put powder in folds. Bridges so therapist can pull sheet down. Remains supine upon completion with call light in reach and needs met. Total Physical Therapy Time Total Therapy Minutes 23 Total Physical Therapy Units 2 Summary Daily Note Summary Improved cooperation. Does well with bed mobs. Good tolerance with sitting EOB. Denies increased pain with this. Very pleasant today.
--- NOTE | 2023-01-02 09:51 | SWNOTE1 ---
LESLI spoke with pharmacy and vanco trough is at 11, should be back by 12. LESLI spoke with nurse from [employer]. She stated her health practice manager said pt lives too far out to come do a visit. [email or web address] has a company they colloborate with and they are trying to get a nurse through that company, it is called [employer]. Nurse from [employer] is not able to come today to do teaching, but she will call pt and send him videos. As long as the nurse from [facility] can come it should not be a problem. She is going to speak with her health practice manager and send information to [facility]. LESLI did receive call from nurse again and they need flush order marked on script. LESLI to verify with doctor what needs ordered. LESLI to re-fax.
--- NOTE | 2023-01-02 12:27 | SWNOTE1 ---
LESLI spoke with infusion nurse and she attempted to get ahold of pt, but no answer and he has not called back. LESLI spoke with pt and he was on phone with his sister. SW let him know he would be all set to go home with Vanco IV once he does training with infusion company nurse over the phone. He will call back. Pt did inquire about transfer, nursing is checking with doctor as this is his first choice. SW waiting on Vanco trough.
[2023-01-02 12:41] LABS: Vancomycin Trough 17.8 ug/mL (5.0-20.0)
[2023-01-02] MEDS: VANCOMYCIN HCL 2,000 MG in 0.9 % SODIUM CHLORIDE 500 ML 250 MG IV (13:32)
--- NOTE | 2023-01-02 14:05 | SWNOTE1 ---
LESLI spoke with case management and nursing and pt is now going to be transferred to [facility] for BKA amputation. LESLI called the nurse from [facility] to update them.
[2023-01-02 14:06] VITALS: BP 152/65; PULSE 86; RESP 18; TEMP 36.5; O2SAT 92
--- NOTE | 2023-01-02 16:25 | SWNOTE1 ---
[facility]. Nursing has updated doctor.
[2023-01-02 19:45] VITALS: RESP 18
[2023-01-02 21:00] VITALS: BP 138/86; PULSE 62; RESP 18; TEMP 37.1; O2SAT 95
== END 2023-01-02 22:30 | disposition short-term general hospital (02) | DRG 313 ==
PROVIDERS: Podiatrist Foot & Ankle Surgery; Admitting Provider Family Medicine; PCP Family Medicine; Visit Provider Family Medicine
PROC: 0QBG0ZZ Excision of Right Tibia, Open Approach (ICD-10-PCS; principal; 2022-12-27 11:30)
DX: E11.621 Type 2 diabetes mellitus with foot ulcer (principal); E11.69 Type 2 diabetes mellitus with other specified complication; L97.314 Non-pressure chronic ulcer of right ankle with necrosis of bone; E11.22 Type 2 diabetes mellitus with diabetic chronic kidney disease; N18.2 Chronic kidney disease, stage 2 (mild); L03.115 Cellulitis of right lower limb; M86.271 Subacute osteomyelitis, right ankle and foot; E11.42 Type 2 diabetes mellitus with diabetic polyneuropathy; E87.1 Hypo-osmolality and hyponatremia; I13.0 Hypertensive heart and chronic kidney disease with heart failure and stage 1 through stage 4 chronic kidney disease, or unspecified chronic kidney disease; I48.91 Unspecified atrial fibrillation; I50.9 Heart failure, unspecified; E66.01 Morbid (severe) obesity due to excess calories; Z87.891 Personal history of nicotine dependence; R70.0 Elevated erythrocyte sedimentation rate; G47.30 Sleep apnea, unspecified; Z68.44 Body mass index [BMI] 60.0-69.9, adult; A52.16 Charcot's arthropathy (tabetic); L29.9 Pruritus, unspecified; E78.5 Hyperlipidemia, unspecified; B95.61 Methicillin susceptible Staphylococcus aureus infection as the cause of diseases classified elsewhere; M79.7 Fibromyalgia; K21.9 Gastro-esophageal reflux disease without esophagitis; D64.9 Anemia, unspecified; G43.909 Migraine, unspecified, not intractable, without status migrainosus; F32.A Depression, unspecified; F41.9 Anxiety disorder, unspecified; M19.90 Unspecified osteoarthritis, unspecified site; Z82.49 Family history of ischemic heart disease and other diseases of the circulatory system; Z83.3 Family history of diabetes mellitus; Z80.9 Family history of malignant neoplasm, unspecified; Z79.4 Long term (current) use of insulin; Z79.899 Other long term (current) drug therapy; Z79.01 Long term (current) use of anticoagulants; Z88.1 Allergy status to other antibiotic agents; Z91.013 Allergy to seafood; Z98.890 Other specified postprocedural states; Z99.89 Dependence on other enabling machines and devices; T36.8X5A Adverse effect of other systemic antibiotics, initial encounter
CPT/HCPCS: 36415; 36569; 36592; 51702; 73590; 73610; 73630; 76000; 80048; 80053; 80170; 80202; 81001; 82948; 83605; 83880; 85025; 85610; 85652; 85730; 86140; 87040; 87070; 87086; 87102; 87116; 87150; 87186; 87205; 87206; 94761; 96365; 96366; 96367; 96375; 96376; 97110; 97161; 97165; 97530; 97535; 99999; C1713; C1887; G0378; G0379; J2020; J2704; J3370

== ENCOUNTER 2023-07-12 16:09 | Outpatient (OUT) | payer OTHER, SELFPAY ==
[2023-07-12 16:37] LABS: Basophils Percent Auto 0.4 % (0.2-2.0); Eosinophils Absolute Auto 0.1 10^3/uL (0.0-0.7); Eosinophils Percent Auto 1.5 % (0.9-7.0); Hematocrit 41.6 % (42.0-54.0); Hemoglobin 12.9 g/dL (14.0-18.0); Immature Granulocytes Abs Auto 0.03 10^3/uL (0.00-0.03); Immature Granulocytes Pct Auto 0.4 % (0.0-0.5); Lymphocytes Absolute Auto 1.3 10^3/uL (1.2-3.8); Mean Corpuscular Hemoglobin 27.9 pg (25.9-34.0); Mean Platelet Volume 8.5 fL (9.5-13.5); Monocytes Absolute Auto 0.5 10^3/uL (0.3-0.8); Neutrophils Absolute Auto 5.9 10^3/uL (1.4-6.5); Neutrophils Percent Auto 74.7 % (43.0-75.0); Platelet Count 190 10^3/uL (150-450); Red Blood Count 4.62 10^6/uL (4.70-6.10); Red Cell Distribution Width 13.8 % (11.0-15.0); White Blood Count 7.8 10^3/uL (4.0-11.0)
[2023-07-12 17:10] LABS: Alanine Aminotransferase 26 U/L (16-63); Albumin Globulin Ratio 0.7; Albumin Level 3.5 g/dL (3.4-5.0); Alkaline Phosphatase 97 U/L (46-116); Anion Gap 9.8; Aspartate Amino Transferase 24 U/L (15-37); BUN Creatinine Ratio 14.8; Bilirubin Total 0.6 mg/dL (0.2-1.0); Calcium 9.4 mg/dL (8.5-10.1); Chloride 105 mmol/L (98-107); Estimated GFR (African America >60 (>=60); Estimated GFR (Non-African Ame 51 (>=60); Free T3 3.07 pg/mL (2.18-3.98); Globulin 4.8 g/dL; Glucose 77 mg/dL (74-106); Potassium 4.8 mmol/L (3.5-5.1); Sodium 144 mmol/L (136-145); Thyroid Stimulating Hormone 6.477 uIU/mL (0.358-3.740); Total Protein 8.3 g/dL (6.4-8.2)
== END 2023-07-12 16:10 | disposition home or self-care (01) ==
LOC: LAB 16:09
PROVIDERS: PCP Family Medicine; Visit Provider Family Medicine
DX: E11.9 Type 2 diabetes mellitus without complications (principal); I10 Essential (primary) hypertension
CPT/HCPCS: 36415; 80053; 84436; 84443; 84481; 85025

== ENCOUNTER 2024-03-19 12:25 | Outpatient (OUT) | payer OTHER, SELFPAY ==
--- NOTE | 2024-03-19 | XR_ITS ---
[address] [address] Patient Name: JAZ MEZA MRN: [id number] date: 1965 Sex: M Assigned Patient Location: Current Patient Location: Accession/Order Number: [id number] Exam Date: 03/19/2024 12:25 Report Date: 03/24/2024 01:15 At the request of: LEENA CAZARES Procedure: XR foot LT min 3V EXAM: XR foot LT min 3V HISTORY: LEFT FOOT PAIN COMPARISON: None. FINDINGS/IMPRESSION: 1. No acute fracture or dislocation. 2. Amputation of the distal aspect of the first ray at the level of the first metatarsal. 3. Moderate degeneration of the mid foot. 4. Small calcaneal plantar enthesophyte. 5. Moderate degeneration of the ankle joint. 6. Overlying bowel gas pattern is nonspecific. 7. Pes planus. Electronically authenticated by: DANIELA HUNTER Date: 03/24/2024 01:15
--- OUTSIDE RECORDS SUMMARY | 2024-03-19 12:39 | XMS_ITS | CCD ---
Author Organization [facility] Care Team Providers Care Medical Accounting Clerk Name Role Phone STEPHENIE JIMÉNEZ Attending Unavailable Unavailable Primary Care Provider Unavailabl e DM ., GARTH Attending Unavailable DM ., GARTH Consulting Unavailable DM ., GARTH Admitting Unavailable HOY ., DR CHILDS Primary Care Unavailable FARRAHANDERLEENA Attending Unavailable LEENA CAZARES Admitting Unavailable WEST, DR DANICA Angel Consulting Unavailable HOY ., DR CHILDS Primary Care Unavailable HIGHLANDERLEENA Consulting Unavailable HIGHLANDERLEENA Attending Unavailable HIGHLANDER PETER Brandon Admitting Unavailable WEST, DR DANICA Angel Consulting Unavailable HOY ., DR CHILDS Primary Care Unavailable HIGHLANDERLEENA Consulting Unavailable DM ., GARTH Admitting Unavailable HOY ., DR CHILDS Consulting Unavailable HOY ., DR CHILDS Primary Care Unavailable DM ., GARTH Attending Unavailable YEFRIEBER, DR JOEL Rivera Consulting Unavailable NADERER, DR BRANDT Martinez Consulting Unavailable FARRAHANDER PETER Brandon Procedure Practitioner Unava ilable LEENA CAZARES Consulting Unavailable SASHA SARMIENTO Consulting Unavailable RAJWINDER ., DR CHILDS Procedure Practitioner Unavail able DANICA SOLITARIO Consulting Unavailable FARTUN LI Consulting Unavailable PUJA LEPE Consulting Unavailable DM ., GARTH Consulting Unavailable DM II, GAB Consulting Unavailable BOUBACAR JACOB Consulting Unavailable FILGARTH FINLEY Consulting Unavailable HOY ., DR CHILDS Primary Care Unavailable HOY ., DR CHILDS Attending Unavailable HOY ., DR CHILDS Admitting Unavailable WEST, DR DANICA Angel Consulting Unavailable HOAngelina ., DR CHILDS Primary Care Unavailable TARUN CORTES Attending Unavailable SOPHIA TARUN Admitting Unavailable SOPHIA TARUN Consulting Unavailable YEFRIEBER, DR JOEL Rivera Consulting Unavailable HOY ., DR CHILDS Primary Care Unavailable TARUN CORTES Attending Unavailable TARUN CORTES Admitting Unavailable SOPHIA, TARUN Consulting Unavailable FARRAHANDER, PETER D Admitting Unavailable HIGHLANDER, LEENA Taylor Attending Unavailable WEST, DR DANICA Angel Consulting Unavailable HOY ., DR CHILDS Primary Care Unavailable FARRAHANDER, LEENA Taylor Consulting Unavailable DM ., GARTH Attending Unavailable DM ., GARTH Admitting Unavailable DM ., GARTH Consulting Unavailable HOY ., DR CHILDS Primary Care Unavailable HOY ., DR CHILDS Primary Care Unavailable DM ., GARTH Consulting Unavailable DM ., GARTH Attending Unavailable MD ., GARTH Admitting Unavailable DM ., GARTH Attending Unavailable DM ., GARTH Admitting Unavailable DM ., GARTH Consulting Unavailable HOY ., DR CHILDS Primary Care Unavailable HOY ., DR CHILDS Attending Unavailable HOY ., DR CHILDS Primary Care Unavailable HOY ., DR CHILDS Admitting Unavailable SOPHIA, TARUN Attending Unavailable HOY ., DR CHILDS Primary Care Unavailable SOPHIA, TARUN Admitting Unavailable MISC, DR LEBRON Admitting Unavailable MISC, DR LEBRON Attending Unavailable MISC, DR LEBRON Consulting Unavailable HOY ., DR CHILDS Primary Care Unavailable DM ., GARTH Admitting Unavailable HOY ., DR CHILDS Consulting Unavailable HOY ., DR CHILDS Primary Care Unavailable DM ., GARTH Attending Unavailable HOY ., DR CHILDS Primary Care Unavailable DM ., GARTH Admitting Unavailable DM ., GARTH Consulting Unavailable DM ., GARTH Attending Unavailable HOY ., DR CHILDS Primary Care Unavailable DM ., GARTH Admitting Unavailable DM ., GARTH Consulting Unavailable DM ., GARTH Attending Unavailable HOY ., DR CHILDS Consulting Unavailable HOY ., DR CHILDS Primary Care Unavailable FAWWAD, SAUNDERS H Admitting Unavailable FAWWAD, SAUNDERS H Attending Unavailable WEST, DR DANICA Angel Consulting Unavailable FAWWAD, SAUNDERS H Procedure Practitioner Unavailjuan TRUONG ., DR GLYNN Consulting Unavailable SAGE, LEENA Taylor Consulting Unavailable FARRAHANDER, PETER Brandon Procedure Practitioner Unava ilable ASHISH COLMENARES Consulting Unavailable FAWWAD, SAUNDERS H Consulting Unavailable SALOME BRIDGESTAN Consulting Unavailable VESTA .FARTUN Consulting Unavailable OSMAN RUDOLPH Consulting Unavailable HOY ., DR CHILDS Primary Care Unavailable HOY ., DR CHILDS Attending Unavailable HOY ., DR CHILDS Consulting Unavailable HOY ., DR CHILDS Admitting Unavailable LUCRECIA DOW Consulting Unavailable HIGHLANDER, PETER D Attending Unavailable HIGHLANDER, PETER D Admitting Unavailable HOY ., DR CHILDS Primary Care Unavailable HIGHLANDER, PETER D Attending Unavailable HIGHLANDER, PETER D Admitting Unavailable HOY ., DR CHILDS Primary Care Unavailable HIGHLANDER, PETER D Admitting Unavailable HIGHLANDER, PETER D Attending Unavailable HOY ., DR CHILDS Primary Care Unavailable HIGHLANDER, PETER D Admitting Unavailable HIGHLANDER, PETER D Attending Unavailable HOY ., DR CHILDS Primary Care Unavailable HIGHLANDER, PETER D Admitting Unavailable HIGHLANDER, PETER D Attending Unavailable HOY ., DR CHILDS Primary Care Unavailable HIGHLANDER, PETER D Attending Unavailable HIGHLANDER, PETER D Admitting Unavailable HOY ., DR CHILDS Primary Care Unavailable HIGHLANDER, PETER D Admitting Unavailable HIGHLANDER, PETER D Attending Unavailable HOY ., DR CHILDS Primary Care Unavailable HOY ., DR CHILDS Attending Unavailable HOY ., DR CHILDS Primary Care Unavailable HOY ., DR CHILDS Consulting Unavailable HOY ., DR CHILDS Admitting Unavailable HIGHLANDER, PETER D Attending Unavailable HIGHLANDER, PETER D Admitting Unavailable HIGHLANDER, PETER D Consulting Unavailable HOY ., DR CHILDS Primary Care Unavailable ASHISH COLMENARES Consulting Unavailable HOY ., DR CHILDS Attending Unavailable HOY ., DR CHILDS Primary Care Unavailable HOY ., DR CHILDS Procedure Practitioner Unavail able HOY ., DR CHILDS Consulting Unavailable HOY ., DR CHILDS Admitting Unavailable DM ., GARTH Consulting Unavailable HIGHLANDER, PETER D Attending Unavailable HIGHLANDER, PETER D Admitting Unavailable HOY ., DR CHILDS Primary Care Unavailable HIGHLANDER, PETER D Consulting Unavailable HOY ., DR CHILDS Primary Care Unavailable DM ., GARTH Admitting Unavailable DM ., GARTH Consulting Unavailable DM ., GARTH Attending Unavailable HIGHLANDER, PETER D Admitting Unavailable HIGHLANDER, PETER D Attending Unavailable HOY ., DR CHILDS Primary Care Unavailable HIGHLANDER, PETER D Consulting Unavailable FRANCISCO LEE Consulting Unavailable ARIES, ITRI A Attending Unavailable ARIES, ITRI A Admitting Unavailable ARIES, ITRI A Attending Unavailable ARIES, ITRI A Admitting Unavailable ARIES, ITRI A Admitting Unavailable ARIES, ITRI A Attending Unavailable Osman Henderson Admitting Unavailable Lonnie II, Edy M Consulting Carlos Moser Attending Unavailable Naz Purdy Primary Care Unavailable Gloria Martell Consulting Unavailable Allergies Allergy Classification Reported Allergen(s) Allergy Type Date of Onset Reaction(s) Facility (4 sources) Ciprofloxacin; Translations: [CIPROFLOXACIN] Drug Allergy 9 [facility] Repository (4 sources) Clindamycin; Translations: [CLINDAMYCIN] Drug Allergy 3 [facility] Repository (2 sources) Shellfish; Translations: [SHELLFISH DERIVED] Propensity to adverse reactions to drug (disorder) 3 [facility] Repository (2 sources) SPIDER VENOM; Translations: [SPIDER VENOM] Propensity to adverse reactions to drug (disorder) 3 [facility] Repository (1 source) linezolid Drug Allergy [facility] Repository (3 sources) Shellfish; Translations: [shellfish] Drug allergy (disorder) 2 [facility] Repository Problems Active Problems Problem Classification Problem Date Documented Da te Episodic/Chronic Acquired foot deformities (2 sources) Hallux rigidus, left foot; Translations: [Other hammer toe(s) (acquired), left foot] Onset: 11-25-2021 Chronic Acute and unspecified renal failure (2 sources) Acute kidney failure, unspecified; Translations: [ACUTE KIDNEY FAILURE UNSPECIFIED] Onset: 04-27-2022 Episodic Acute posthemorrhagic anemia (1 source) Acute posthemorrhagic anemia; Translations: [ACUTE POSTHEMORRHAGIC ANEMIA] Onset: 09-21-2022 Episodic Allergic reactions (3 sources) Allergy status to other antibiotic agents status; Translations: [Allergy to seafood] Onset: 09-30-2022 Episodic Anxiety disorders (1 source) Anxiety disorder, unspecified; Translations: [ANXIETY DISORDER UNSPECIFIED] Onset: 09-30-2022 Chronic Bacterial infection; unspecified site (5 sources) Bacteremia; Translations: [Enterococcus as the cause of diseases classified elsewhere] Onset: 09-21-2022 Episodic Cardiac dysrhythmias (2 sources) Unspecified atrial fibrillation; Translations: [UNSPECIFIED ATRIAL FIBRILLATION] Onset: 09-30-2022 Chronic Cataract (1 source) Presence of intraocular lens; Translations: [PRESENCE OF INTRAOCULAR LENS] Onset: 09-30-2022 Chronic Chronic kidney disease (1 source) Chronic kidney disease, stage 2 (mild); Translations: [CHRONIC KIDNEY DISEASE STAGE 2 MILD] Onset: 09-21-2022 Chronic Chronic kidney disease (1 source) Chronic kidney disease; Translations: [Chronic kidney disease, stage 3 unspecified] Onset: 01-03-2023 Chronic ulcer of skin (5 sources) Non-pressure chronic ulcer of right heel and midfoot with unspecified severity; Translations: [Non-pressure chronic ulcer of right heel and midfoot with bone involvement without evidence of necrosis] Onset: 11-25-2021 Chronic Complication of device; implant or graft (3 sources) Other specified complication of internal orthopedic prosthetic devices, implants and grafts, initial encounter; Translations: [Breakdown (mechanical) of internal fixation device of bones of foot and toes, initial encounter] Onset: 06-03-2022 Episodic Complications of surgical procedures or medical care (7 sources) Other complications of procedures, not elsewhere classified, initial encounter; Translations: [Postprocedural hematoma of a musculoskeletal structure following a musculoskeletal system procedure] Onset: 06-03-2022 Episodic Congestive heart failure; nonhypertensive (3 sources) Chronic systolic (congestive) heart failure; Translations: [Acute on chronic combined systolic (congestive) and diastolic (congestive) heart failure] Onset: 09-06-2022 Chronic Deficiency and other anemia (3 sources) Iron deficiency anemia secondary to blood loss (chronic); Translations: [IRON DEFIC ANEMIA SEC BLD LOSS CHRN] Onset: 09-17-2022 Chronic Deficiency and other anemia (5 sources) Anemia, unspecified; Translations: [ANEMIA UNSPECIFIED] Onset: 09-14-2022 Episodic Diabetes mellitus with complications (13 sources) Type 2 diabetes mellitus with foot ulcer; Translations: [Type 2 diabetes mellitus with diabetic neuropathy, unspecified] Onset: 11-18-2021 Chronic Diabetes mellitus without complication (1 source) Type 2 diabetes mellitus without complications; Translations: [Type 2 diabetes mellitus without complications] Onset: 01-03-2023 Chronic Disorders of lipid metabolism (1 source) Hyperlipidemia, unspecified; Translations: [HYPERLIPIDEMIA UNSPECIFIED] Onset: 09-30-2022 Chronic E Codes: Adverse effects of medical drugs (1 source) Adverse effect of unspecified drugs, medicaments and biological substances, initial encounter; Translations: [Adverse effect of unspecified drugs, medicaments and biological substances, initial encounter] Onset: 01-03-2023 Episodic Esophageal disorders (1 source) Gastro-esophageal reflux disease without esophagitis; Translations: [GERD WITHOUT ESOPHAGITIS] Onset: 09-30-2022 Chronic Essential hypertension (4 sources) Essential (primary) hypertension; Translations: [Essential (primary) hypertension] Onset: 09-06-2022 Chronic Fluid and electrolyte disorders (3 sources) Hypo-osmolality and hyponatremia; Translations: [Dehydration] Onset: 04-27-2022 Episodic Hypertension with complications and secondary hypertension (1 source) Hypertensive heart and chronic kidney disease with heart failure and stage 1 through stage 4 chronic kidney disease, or unspecified chronic kidney disease; Translations: [HTN HRT CKD W/HF STAGE 1-4/UNS CKD] Onset: 09-21-2022 Chronic Infective arthritis and osteomyelitis (except that caused by tuberculosis or sexually transmitted disease) (3 sources) Other acute osteomyelitis, right ankle and foot; Translations: [Other chronic osteomyelitis, right ankle and foot] Onset: 09-30-2022 Chronic Mood disorders (1 source) Major depressive disorder, single episode, unspecified; Translations: [KELLY DEPRESS D/O SINGLE EPIS UNS] Onset: 04-27-2022 Chronic Mood disorders (1 source) Mood disorders; Translations: [DEPRESSION UNSPECIFIED] Onset: 09-30-2022 Osteoarthritis (1 source) Unspecified osteoarthritis, unspecified site; Translations: [UNSPECIFIED OSTEOARTHRITIS UNS SITE] Onset: 04-27-2022 Chronic Other aftercare (1 source) MCFP (current) use of insulin; Translations: [TRUCK DRIVER CURRENT USE OF INSULIN] Onset: 09-30-2022 Episodic Other aftercare (1 source) Other medical terminologist (current) drug therapy; Translations: [OTH SHELTER CURRENT DRUG THERAPY] Onset: 09-30-2022 Episodic Other aftercare (1 source) predatory animal exterminator (current) use of anticoagulants; Translations: [SHELTER CURRNT USE ANTICOAGULANTS] Onset: 09-30-2022 Episodic Other bone disease and musculoskeletal deformities (1 source) Acquired absence of right leg below knee; Translations: [Acquired absence of right leg below knee] Onset: 01-03-2023 Chronic Other bone disease and musculoskeletal deformities (1 source) Acquired absence of other left toe(s); Translations: [ACQUIRED ABSENCE OF OTHER LEFT TOES] Onset: 09-30-2022 Episodic Other connective tissue disease (4 sources) Pain in right foot; Translations: [PAIN IN RIGHT FOOT] Onset: 10-18-2022 Episodic Other connective tissue disease (1 source) Arthrodesis status; Translations: [ARTHRODESIS STATUS] Onset: 09-30-2022 Episodic Other diseases of kidney and ureters (2 sources) Disorder of kidney and ureter, unspecified; Translations: [Disorder of kidney and ureter, unspecified] Onset: 09-06-2022 Episodic Other diseases of veins and lymphatics (1 source) Lymphedema, not elsewhere classified; Translations: [LYMPHEDEMA NOT ELSEWHERE CLASSIFIED] Onset: 11-25-2021 Chronic Other diseases of veins and lymphatics (1 source) Other specified disorders of veins; Translations: [OTHER SPECIFIED DISORDERS OF VEINS] Onset: 09-21-2022 Episodic Other eye disorders (1 source) Cataract extraction status, left eye; Translations: [CATARACT EXTRACTION STATUS LEFT EYE] Onset: 09-30-2022 Episodic Other eye disorders (1 source) Cataract extraction status, right eye; Translations: [CATARACT EXTRACTION STATUS RT EYE] Onset: 09-30-2022 Episodic Other infections; including parasitic (1 source) Personal history of other infectious and parasitic diseases; Translations: [PERSONAL HX OTH INF AND PARASITIC DZ] Onset: 09-30-2022 Episodic Other infections; including parasitic (1 source) Other infectious disease; Translations: [OTHER INFECTIOUS DISEASE] Onset: 09-21-2022 Episodic Other inflammatory condition of skin (1 source) Other pruritus; Translations: [Other pruritus] Onset: 01-03-2023 Episodic Other non-traumatic joint disorders (5 sources) Charcot's joint, right ankle and foot; Translations: [CHARCOTS JOINT RIGHT ANKLE AND F] Onset: 06-29-2022 Chronic Other non-traumatic joint disorders (1 source) Charcot's joint, unspecified ankle and foot; Translations: [Charcot's joint, unspecified ankle and foot] Onset: 01-03-2023 Chronic Other non-traumatic joint disorders (5 sources) Pain in right ankle and joints of right foot; Translations: [PAIN IN RIGHT ANKLE] Onset: 08-02-2022 Episodic Other non-traumatic joint disorders (1 source) Other instability, right ankle; Translations: [OTHER INSTABILITY RIGHT ANKLE] Onset: 09-30-2022 Episodic Other nutritional; endocrine; and metabolic disorders (1 source) Body mass index (BMI) 60.0-69.9, adult; Translations: [BODY MASS INDEX BMI 60.0-69.9 ADULT] Onset: 09-30-2022 Chronic Other nutritional; endocrine; and metabolic disorders (2 sources) Morbid (severe) obesity due to excess calories; Translations: [MORBID SEVERE OBES D/T EXCESS BRAD] Onset: 09-30-2022 Chronic Other nutritional; endocrine; and metabolic disorders (1 source) Hypocalcemia; Translations: [Hypocalcemia] Onset: 01-03-2023 Chronic Phlebitis; thrombophlebitis and thromboembolism (3 sources) Personal history of other venous thrombosis and embolism; Translations: [Acute embolism and thrombosis of popliteal vein, bilateral] Onset: 11-25-2021 Episodic Residual codes; unclassified (1 source) Sleep apnea, unspecified; Translations: [SLEEP APNEA UNSPECIFIED] Onset: 09-30-2022 Chronic Residual codes; unclassified (1 source) Dependence on other enabling machines and devices; Translations: [DEPEND OTH ENABLING MACHINES AND DEVICE] Onset: 09-30-2022 Chronic Residual codes; unclassified (1 source) Obstructive sleep apnea (adult) (pediatric); Translations: [Obstructive sleep apnea (adult) (pediatric)] Onset: 01-03-2023 Chronic Residual codes; unclassified (1 source) Localized edema; Translations: [LOCALIZED EDEMA] Onset: 09-30-2022 Episodic Residual codes; unclassified (1 source) Family history of diabetes mellitus; Translations: [FAMILY HISTORY OF DIABETES MELLITUS] Onset: 09-30-2022 Episodic Residual codes; unclassified (1 source) Other specified postprocedural states; Translations: [OTH SPECIFIED POSTPROCEDURAL STATES] Onset: 09-30-2022 Episodic Residual codes; unclassified (1 source) Family history of ischemic heart disease and other diseases of the circulatory system; Translations: [FAM HX ISCHEMIC HRT DZ OTH DZ CIRC] Onset: 09-30-2022 Episodic Residual codes; unclassified (1 source) Family history of other malignant neoplasms of lymphoid, hematopoietic and related tissues; Translations: [FAM HX OTH MAL EUSEBIO LYMPH HEMATPOETC] Onset: 09-30-2022 Episodic Screening and history of mental health and substance abuse codes (1 source) Personal history of nicotine dependence; Translations: [PERSONAL HISTORY OF NICOTINE DEPEND] Onset: 09-21-2022 Episodic Skin and subcutaneous tissue infections (12 sources) Cellulitis of left lower limb; Translations: [Cellulitis of right lower limb] Onset: 08-10-2022 Episodic Unclassified (1 source) PT NONCOMP OTH MED TX/REG UNS REASN; Translations: [PT NONCOMP OTH MED TX/REG UNS REASN] Onset: 09-21-2022 Unclassified (1 source) CONTACT W/AND (SUSP) EXPOS COVID-19; Translations: [CONTACT W/AND (SUSP) EXPOS COVID-19] Onset: 06-03-2022 Past or Other Problems Problem Classification Problem Date Documented Date Episodic/Chronic Acquired foot deformities (1 source) Varus deformity, not elsewhere classified, right ankle; Translations: [VARUS DEFORMITY NEC RIGHT ANKLE] Onset: 04-16-2022 Episodic Acquired foot deformities (1 source) Other acquired deformities of left foot; Translations: [OTHER ACQUIRED DEFORMITIES LT FOOT] Onset: 11-25-2021 Episodic Deficiency and other anemia (1 source) Iron deficiency anemia, unspecified; Translations: [IRON DEFICIENCY ANEMIA UNSPECIFIED] Onset: 06-03-2022 Episodic E Codes: Adverse effects of medical care (2 sources) Other surgical procedures as the cause of abnormal reaction of the patient, or of later complication, without mention of misadventure at the time of the procedure; Translations: [Surgical operation with implant of artificial internal device as the cause of abnormal reaction of the patient, or of later complication, without mention of misadventure at the time of the procedure] Onset: 06-03-2022 Episodic E Codes: Natural/environment (1 source) Exposure to other specified factors, initial encounter; Translations: [EXPOSURE OTHER SPEC FACTORS INITIAL] Onset: 06-03-2022 Episodic Fracture of lower limb (1 source) Unspecified fracture of right lower leg, initial encounter for closed fracture; Translations: [UNS FX RT LOWER LEG INITIAL CLOS FX] Onset: 06-03-2022 Episodic Other connective tissue disease (4 sources) Pain in right lower leg; Translations: [PAIN IN RIGHT LOWER LEG] Onset: 06-28-2022 Episodic Other connective tissue disease (1 source) Short Achilles tendon (acquired), left ankle; Translations: [SHORT ACHILLES TENDON ACQ LT ANKLE] Onset: 11-25-2021 Episodic Other diseases of veins and lymphatics (1 source) Venous insufficiency (chronic) (peripheral); Translations: [VENOUS INSUFF CHRONIC PERIPHERAL] Onset: 11-25-2021 Episodic Other nervous system disorders (1 source) Other abnormalities of gait and mobility; Translations: [OTHER ABNORMALITIES GAIT AND MOBILITY] Onset: 11-25-2021 Episodic Other skin disorders (1 source) Corns and callosities; Translations: [CORNS AND CALLOSITIES] Onset: 04-27-2022 Episodic Other skin disorders (1 source) Ingrowing nail; Translations: [INGROWING NAIL] Onset: 11-25-2021 Episodic Results Test Name Value Interpretation Reference Range Facility Glucose Poct Glucometerson 0 01-26-2023 Commemt1 Glu2: Cleaned [facility] Comment on above: Result Comment: PERF ORMED BY: [place] [id number] PATHOLOGIST NETWORK DESIGNER RICHARD OLSEN M.D. Performed By: #### G LULS #### Point of Care testing , Glucose [Mass/Vol] 208 mg/dL Normal [facility] Comment on above: Result Comment: [facility] Glucose Reference Range is dependent on time and content of last meal. Glucose of more than 200 mg/dL in a nonstressed, ambulatory subject supports the diagnosis of Diabetes Mellitus. Performed By: #### G LULS #### Point of Care testing , Commemt1 Glu2: [facility] Comment on above: Result Comment: PERF ORMED BY: [place] [id number] PATHOLOGIST NETWORK DESIGNER RICHARD OLSEN M.D. Performed By: #### U REHAN TAPIA #### [address] Glucose [Mass/Vol] 171 mg/dL Normal [facility] Comment on above: Result Comment: [facility] Glucose Reference Range is dependent on time and content of last meal. Glucose of more than 200 mg/dL in a nonstressed, ambulatory subject supports the diagnosis of Diabetes Mellitus. Performed By: #### U WILLIE, REHAN #### [facility] [address] Basic Metabolic Panelon 3 Anion gap [Moles/Vol] 9.1 mmol/L Normal 6.0-15.[address] [facility] Comment on above: Performed By: #### U CREJuan, REHAN #### [facility] [address] Calcium [Mass/Vol] 9.2 mg/dL Normal 8.6-10.3 [facility] Comment on above: Performed By: #### U CREJuan, REHAN #### [facility] [address] Chloride [Moles/Vol] 100 mmol/L Normal 98-107 [facility] Comment on above: Performed By: #### U CREJuan, REHAN #### [facility] [address] CO2 [Moles/Vol] 31.8 mmol/L High 21.0-31.0 [facility] Comment on above: Performed By: #### U CREJuan, REHAN #### [facility] [address] Creatinine [Mass/Vol] 1.50 mg/dL High 0.70-1.[address] [facility] Comment on above: Performed By: #### U CREJuan, REHAN #### [facility] [address] [place] [address] [place] Creatinine Clr Calc Pharmacy 108.09 Normal [facility] Comment on above: Result Comment: PERF ORMED BY: [place] [id number] PATHOLOGIST NETWORK DESIGNER RICHARD OLSEN M.D. Performed By: #### U CREJuan, REHAN #### [place] [address] [place] GFR/1.73 sq M.predicted MDRD (S/P/Bld) [Vol rate/Area] 53.298 mL/min/{1.73_m2} Normal [facility] Comment on above: Performed By: #### U CREA, REHAN #### [facility] [address] Glucose [Mass/Vol] 151 mg/dL High 70-100 [facility] Comment on above: Result Comment: [facility] Glucose Reference Range is dependent on time and content of last meal. Glucose of more than 200 mg/dL in a nonstressed, ambulatory subject supports the diagnosis of Diabetes Mellitus. ADA recommended reference range Performed By: #### U CREA, REHAN #### [address] Potassium [Moles/Vol] 3.9 mmol/L Normal 3.5-5.[address] [facility] Comment on above: Performed By: #### U CREA, REHAN #### [address] Sodium [Moles/Vol] 137 mmol/L Normal 136-145 [facility] Comment on above: Performed By: #### U CREA, REHAN #### [address] [address] Urea nitrogen [Mass/Vol] 21 mg/dL Normal 7-25 [facility] Comment on above: Performed By: #### U CREA, REHAN #### [address] Complete Blood Count Auto Di ffon 01-25-2023 Basophils (Bld) [#/Vol] 0.0 10*3/uL Normal 0.0-0.2 [facility] Comment on above: Result Comment: PERF ORMED BY: [place] [address] PATHOLOGIST NETWORK DESIGNER RICHARD OLSEN M.D. Performed By: #### U CREA, REHAN #### [place] [address] [place] Basophils/100 WBC (Bld) 0.9 % Normal . [facility] Comment on above: Performed By: #### U CREA, REHAN #### [facility] [address] [place] [address] [place] Eosinophils (Bld) [#/Vol] 0.2 10*3/uL Normal 0.0-0.45 [facility] Comment on above: Performed By: #### U CREA, REHAN #### [facility] [address] [place] [id number] [place] Eosinophils/100 WBC (Bld) 3.6 % Normal . [facility] Comment on above: Performed By: #### U CREA, REHAN #### [facility] [address] Erythrocyte distribution width (RBC) [Ratio] 21.0 % High 12.0-14.8 [facility] Comment on above: Performed By: #### U CREA, REHAN #### [address] Hematocrit (Bld) [Volume fraction] 30.6 % Low 38.8-50.0 [facility] Comment on above: Performed By: #### U CREA, REHAN #### [place] [address] [place] Hemoglobin (Bld) [Mass/Vol] 9.7 g/dL Low 13.0-17.0 [facility] Comment on above: Performed By: #### U CREA, REHAN #### [facility] [address] [place] [address] [place] Lymphocytes (Bld) [#/Vol] 0.9 10*3/uL Low 1.00-4.8 [facility] Comment on above: Performed By: #### U CREA, REHAN #### [facility] [address] [place] [address] [place] Lymphocytes/100 WBC (Bld) 18.8 % Normal . [facility] Comment on above: Performed By: #### U CREA, REHAN #### [place] [address] [place] MCH (RBC) [Entitic mass] 25.8 pg Low 27.5-35.2 [facility] Comment on above: Performed By: #### U CREA, REHAN #### [facility] [address] MCV (RBC) [Entitic vol] 81.0 fL Low 83.5-101 [facility] Comment on above: Performed By: #### U CREA, REHAN #### [facility] [address] Mean Corpuscular HGB Conc 31.9 g/dL Low 32.5-35.6 [facility] Comment on above: Performed By: #### U CREA, REHAN #### [facility] [address] [place] [address] [place] Monocytes (Bld) [#/Vol] 0.3 10*3/uL Normal 0.0-0.8 [facility] Comment on above: Performed By: #### U CREA, REHAN #### [facility] [address] Monocytes/100 WBC (Bld) 5.9 % Normal . [facility] Comment on above: Performed By: #### U CREA, REHAN #### [facility] [address] [place] [address] [place] Neutrophils (Bld) [#/Vol] 3.3 10*3/uL Normal 1.8-7.7 [facility] Comment on above: Performed By: #### U CREA, REHAN #### [facility] [address] [place] [address] [place] Neutrophils/100 WBC (Bld) 70.8 % Normal . [facility] Comment on above: Performed By: #### U CREA, REHAN #### [facility] [address] [place] [address] [place] NRBC% 0.2 /100{WBC} Normal 0-0.5 [facility] Comment on above: Performed By: #### U CREA, RHEAN #### [facility] [address] Platelet mean volume (Bld) [Entitic vol] 6.4 fL Low 6.6-10.1 [facility] Comment on above: Performed By: #### U CREA, REHAN #### [facility] [address] [place] [address] [place] Platelets (Bld) [#/Vol] 162 10*3/uL Normal 150-450 [facility] Comment on above: Performed By: #### U CREA, REHAN #### [facility] [address] RBC (Bld) [#/Vol] 3.77 10*6/uL Low 3.90-5.60 [facility] Comment on above: Performed By: #### U CREA, REHAN #### [facility] [address] [place] [address] [place] WBC (Bld) [#/Vol] 4.6 10*3/uL Normal 4.1-10.5 [facility] Comment on above: Performed By: #### U CREA, REHAN #### [facility] [address] Glucose Poct Glucometerson 0 01-25-2023 Commemt1 Glu2: Cleaned Meter Normal [facility] Comment on above: Result Comment: PERF ORMED BY: [place] [address] PATHOLOGIST NETWORK DESIGNER RICHARD OLSEN M.D. Performed By: #### G LULS #### Point of Care testing , Glucose [Mass/Vol] 192 mg/dL Normal [facility] Comment on above: Result Comment: [place] Glucose Reference Range is dependent on time and content of last meal. Glucose of more than 200 mg/dL in a nonstressed, ambulatory subject supports the diagnosis of Diabetes Mellitus. Performed By: #### G LULS #### Point of Care testing , Glucose [Mass/Vol] 168 mg/dL Normal [facility] Comment on above: Result Comment: [place] Glucose Reference Range is dependent on time and content of last meal. Glucose of more than 200 mg/dL in a nonstressed, ambulatory subject supports the diagnosis of Diabetes Mellitus. PERFORMED BY: [place] [address] PATHOLOGIST NETWORK DESIGNER RICHARD OLSEN M.D. Performed By: #### U CREA, REHAN #### [facility] [address] [place] [address] [place] Commemt1 Glu2: Cleaned Meter Normal [facility] Comment on above: Result Comment: PERF ORMED BY: [place] [address] PATHOLOGIST NETWORK DESIGNER RICHARD OLSEN M.D. Performed By: #### U CREA, REHAN #### [address] Glucose [Mass/Vol] 266 mg/dL Normal [facility] Comment on above: Result Comment: [place] om Glucose Reference Range is dependent on time and content of last meal. Glucose of more than 200 mg/dL in a nonstressed, ambulatory subject supports the diagnosis of Diabetes Mellitus. Performed By: #### U CREA, REHAN #### [address] Glucose [Mass/Vol] 158 mg/dL Normal [facility] Comment on above: Result Comment: [place] om Glucose Reference Range is dependent on time and content of last meal. Glucose of more than 200 mg/dL in a nonstressed, ambulatory subject supports the diagnosis of Diabetes Mellitus. PERFORMED BY: [place] [address] PATHOLOGIST NETWORK DESIGNER RICHARD OLSEN M.D. Performed By: #### U CREA, REHAN #### [address] Glucose Poct Glucometerson 0 01-24-2023 Glucose [Mass/Vol] 190 mg/dL Normal [facility] Comment on above: Result Comment: [place] om Glucose Reference Range is dependent on time and content of last meal. Glucose of more than 200 mg/dL in a nonstressed, ambulatory subject supports the diagnosis of Diabetes Mellitus. PERFORMED BY: [place] [address] PATHOLOGIST NETWORK DESIGNER RICHARD OLSEN M.D. Performed By: #### U CREA, REHAN #### [facility] [address] [place] [address] Commemt1 Glu2: Cleaned Meter [facility] Comment on above: Result Comment: PERF ORMED BY: [place] [address] PATHOLOGIST NETWORK DESIGNER RICHARD OLSEN M.D. Performed By: #### G LULS #### Point of Care testing , Glucose [Mass/Vol] 164 mg/dL Normal [facility] Comment on above: Result Comment: [place] om Glucose Reference Range is dependent on time and content of last meal. Glucose of more than 200 mg/dL in a nonstressed, ambulatory subject supports the diagnosis of Diabetes Mellitus. Performed By: #### G LULS #### Point of Care testing , Commemt1 Glu2: Cleaned Meter [facility] Comment on above: Result Comment: PERF ORMED BY: [place] [address] PATHOLOGIST NETWORK DESIGNER RICHARD OLSEN M.D. Performed By: #### G LULS #### Point of Care testing , Glucose [Mass/Vol] 252 mg/dL Normal [facility] Comment on above: Result Comment: [place] om Glucose Reference Range is dependent on time and content of last meal. Glucose of more than 200 mg/dL in a nonstressed, ambulatory subject supports the diagnosis of Diabetes Mellitus. Performed By: #### G LULS #### Point of Care testing , Glucose [Mass/Vol] 177 mg/dL Normal [facility] Comment on above: Result Comment: [place] om Glucose Reference Range is dependent on time and content of last meal. Glucose of more than 200 mg/dL in a nonstressed, ambulatory subject supports the diagnosis of Diabetes Mellitus. PERFORMED BY: [place] [address] PATHOLOGIST NETWORK DESIGNER RICHARD OLSEN M.D. Performed By: #### U CREA, REHAN #### [facility] [address] [place] [address] Glucose Poct Glucometerson 0 01-23-2023 Glucose [Mass/Vol] 189 mg/dL Normal [facility] Comment on above: Result Comment: [place] om Glucose Reference Range is dependent on time and content of last meal. Glucose of more than 200 mg/dL in a nonstressed, ambulatory subject supports the diagnosis of Diabetes Mellitus. PERFORMED BY: [place] [address] PATHOLOGIST NETWORK DESIGNER RICHARD OLSEN M.D. Performed By: #### U CREA, REHAN #### [address] Glucose [Mass/Vol] 196 mg/dL Normal [facility] Comment on above: Result Comment: [place] Glucose Reference Range is dependent on time and content of last meal. Glucose of more than 200 mg/dL in a nonstressed, ambulatory subject supports the diagnosis of Diabetes Mellitus. PERFORMED BY: [place] [address] PATHOLOGIST NETWORK DESIGNER RICHARD OLSEN M.D. Performed By: #### U CREA, REHAN #### [address] Commemt1 Glu2: Cleaned Meter Normal [facility] Comment on above: Result Comment: PERF ORMED BY: [place] [address] PATHOLOGIST NETWORK DESIGNER RICHARD OLSEN M.D. Performed By: #### U CREA, REHAN #### [address] Glucose [Mass/Vol] 177 mg/dL Normal [facility] Comment on above: Result Comment: [place] om Glucose Reference Range is dependent on time and content of last meal. Glucose of more than 200 mg/dL in a nonstressed, ambulatory subject supports the diagnosis of Diabetes Mellitus. Performed By: #### U CREA, REHAN #### [address] Commemt1 Glu2: Cleaned Meter Normal [facility] Comment on above: Result Comment: PERF ORMED BY: [place] [address] PATHOLOGIST NETWORK DESIGNER RICHARD OLSEN M.D. Performed By: #### U CREA, REHAN #### [address] Glucose [Mass/Vol] 205 mg/dL Normal [facility] Comment on above: Result Comment: [place] om Glucose Reference Range is dependent on time and content of last meal. Glucose of more than 200 mg/dL in a nonstressed, ambulatory subject supports the diagnosis of Diabetes Mellitus. Performed By: #### U CREA, REHAN #### [address] Glucose Poct Glucometerson 0 01-22-2023 Commemt1 Glu2: Cleaned Meter Normal [facility] Comment on above: Result Comment: PERF ORMED BY: [place] [address] PATHOLOGIST NETWORK DESIGNER RICHARD OLSEN M.D. Performed By: #### U CREA, REHAN #### [place] [address] [place] Glucose [Mass/Vol] 237 mg/dL Normal [facility] Comment on above: Result Comment: [place] om Glucose Reference Range is dependent on time and content of last meal. Glucose of more than 200 mg/dL in a nonstressed, ambulatory subject supports the diagnosis of Diabetes Mellitus. Performed By: #### U CREA, REHAN #### [facility] [address] [place] [address] Glucose [Mass/Vol] 175 mg/dL Normal [facility] Comment on above: Result Comment: [place] om Glucose Reference Range is dependent on time and content of last meal. Glucose of more than 200 mg/dL in a nonstressed, ambulatory subject supports the diagnosis of Diabetes Mellitus. PERFORMED BY: [place] [address] PATHOLOGIST NETWORK DESIGNER RICHARD OLSEN M.D. Performed By: #### U CREA, REHAN #### [address] [address] [place] Glucose [Mass/Vol] 190 mg/dL Normal [facility] Comment on above: Result Comment: [place] om Glucose Reference Range is dependent on time and content of last meal. Glucose of more than 200 mg/dL in a nonstressed, ambulatory subject supports the diagnosis of Diabetes Mellitus. PERFORMED BY: [place] [address] PATHOLOGIST NETWORK DESIGNER RICHARD OLSEN M.D. Performed By: #### U CREA, REHAN #### [address] Glucose [Mass/Vol] 143 mg/dL Normal [facility] Comment on above: Result Comment: [place] Glucose Reference Range is dependent on time and content of last meal. Glucose of more than 200 mg/dL in a nonstressed, ambulatory subject supports the diagnosis of Diabetes Mellitus. PERFORMED BY: [place] [address] PATHOLOGIST NETWORK DESIGNER RICHARD OLSEN M.D. Performed By: #### U CREA, REHAN #### [address] Basic Metabolic Panelon 2 Anion gap [Moles/Vol] 8.7 mmol/L Normal 6.0-15.[address] [facility] Comment on above: Performed By: #### U CREA, REHAN #### [place] [address] [place] Calcium [Mass/Vol] 9.1 mg/dL Normal 8.6-10.3 [facility] Comment on above: Performed By: #### U CREA, REHAN #### [place] [address] [place] Chloride [Moles/Vol] 103 mmol/L Normal 98-107 [facility] Comment on above: Performed By: #### U CREA, REHAN #### [place] [address] [place] CO2 [Moles/Vol] 29.9 mmol/L Normal 21.0-31.0 [facility] Comment on above: Performed By: #### U CREA, REHAN #### [facility] [address] [place] [address] [place] Creatinine [Mass/Vol] 1.68 mg/dL High 0.70-1.[address] [facility] Comment on above: Performed By: #### U CREA, REHAN #### [facility] [address] [place] [address] [place] Creatinine Clr Calc Pharmacy 99.24 [facility] Comment on above: Result Comment: PERF ORMED BY: [facility] [address] [place] [address] PATHOLOGIST NETWORK DESIGNER RICHARD OLSEN M.D. Performed By: #### U CREA, REHAN #### [facility] [address] [place] [address] [place] GFR/1.73 sq M.predicted MDRD (S/P/Bld) [Vol rate/Area] 46.521 mL/min/{1.73_m2} [facility] Comment on above: Performed By: #### U CREA, REHAN #### [facility] [address] [place] [address] [place] Glucose [Mass/Vol] 107 mg/dL High 70-100 [facility] Comment on above: Result Comment: [place] Glucose Reference Range is dependent on time and content of last meal. Glucose of more than 200 mg/dL in a nonstressed, ambulatory subject supports the diagnosis of Diabetes Mellitus. ADA recommended reference range Performed By: #### U CREA, REHAN #### [facility] [address] [place] [address] [place] Potassium [Moles/Vol] 4.6 mmol/L Normal 3.5-5.[address] [facility] Comment on above: Performed By: #### U CREA, REHAN #### [facility] [address] [place] [address] [place] Sodium [Moles/Vol] 137 mmol/L Normal 136-145 [facility] Comment on above: Performed By: #### U CREA, REHAN #### [facility] [address] Urea nitrogen [Mass/Vol] 33 mg/dL High 7-25 [facility] Comment on above: Performed By: #### U REHAN TAPIA #### [facility] [address] [place] [address] Complete Blood Count Auto Di ffon 01-21-2023 Basophils (Bld) [#/Vol] 0.0 10*3/uL Normal 0.0-0.2 [facility] Comment on above: Order Comment: NEEDS TO BE DRAWN NO LAV TUBE TO USE Result Comment: PERF ORMED BY: [address] [place] [address] PATHOLOGIST NETWORK DESIGNER RICHARD OLSEN M.D. Performed By: #### G LULS #### Point of Care testing , Basophils/100 WBC (Bld) 1.2 % Normal . [facility] Comment on above: Order Comment: NEEDS TO BE DRAWN NO LAV TUBE TO USE Performed By: #### G LULS #### Point of Care testing , Eosinophils (Bld) [#/Vol] 0.2 10*3/uL Normal 0.0-0.45 [facility] Comment on above: Order Comment: NEEDS TO BE DRAWN NO LAV TUBE TO USE Performed By: #### G LULS #### Point of Care testing , Eosinophils/100 WBC (Bld) 4.7 % Normal . [facility] Comment on above: Order Comment: NEEDS TO BE DRAWN NO LAV TUBE TO USE Performed By: #### G LULS #### Point of Care testing , Erythrocyte distribution width (RBC) [Ratio] 20.0 % High 12.0-14.8 [facility] Comment on above: Order Comment: NEEDS TO BE DRAWN NO LAV TUBE TO USE Performed By: #### G LULS #### Point of Care testing , Hematocrit (Bld) [Volume fraction] 27.6 % Low 38.8-50.0 [facility] Comment on above: Order Comment: NEEDS TO BE DRAWN NO LAV TUBE TO USE Performed By: #### G LULS #### Point of Care testing , Hemoglobin (Bld) [Mass/Vol] 8.7 g/dL Low 13.0-17.0 [facility] Comment on above: Order Comment: NEEDS TO BE DRAWN NO LAV TUBE TO USE Performed By: #### G LULS #### Point of Care testing , Lymphocytes (Bld) [#/Vol] 0.7 10*3/uL Low 1.00-4.8 [facility] Comment on above: Order Comment: NEEDS TO BE DRAWN NO LAV TUBE TO USE Performed By: #### G LULS #### Point of Care testing , Lymphocytes/100 WBC (Bld) 19.0 % Normal . [facility] Comment on above: Order Comment: NEEDS TO BE DRAWN NO LAV TUBE TO USE Performed By: #### G LULS #### Point of Care testing , MCH (RBC) [Entitic mass] 25.6 pg Low 27.5-35.2 [facility] Comment on above: Order Comment: NEEDS TO BE DRAWN NO LAV TUBE TO USE Performed By: #### G LULS #### Point of Care testing , MCV (RBC) [Entitic vol] 80.9 fL Low 83.5-101 [facility] Comment on above: Order Comment: NEEDS TO BE DRAWN NO LAV TUBE TO USE Performed By: #### G LULS #### Point of Care testing , Mean Corpuscular HGB Conc 31.6 g/dL Low 32.5-35.6 [facility] Comment on above: Order Comment: NEEDS TO BE DRAWN NO LAV TUBE TO USE Performed By: #### G LULS #### Point of Care testing , Monocytes (Bld) [#/Vol] 0.3 10*3/uL Normal 0.0-0.8 [facility] Comment on above: Order Comment: NEEDS TO BE DRAWN NO LAV TUBE TO USE Performed By: #### G LULS #### Point of Care testing , Monocytes/100 WBC (Bld) 7.4 % Normal . [facility] Comment on above: Order Comment: NEEDS TO BE DRAWN NO LAV TUBE TO USE Performed By: #### G LULS #### Point of Care testing , Neutrophils (Bld) [#/Vol] 2.5 10*3/uL Normal 1.8-7.7 [facility] Comment on above: Order Comment: NEEDS TO BE DRAWN NO LAV TUBE TO USE Performed By: #### G LULS #### Point of Care testing , Neutrophils/100 WBC (Bld) 67.7 % Normal . [facility] Comment on above: Order Comment: NEEDS TO BE DRAWN NO LAV TUBE TO USE Performed By: #### G LULS #### Point of Care testing , NRBC% 0.1 /100{WBC} Normal 0-0.5 [facility] Comment on above: Order Comment: NEEDS TO BE DRAWN NO LAV TUBE TO USE Performed By: #### G LULS #### Point of Care testing , Platelet mean volume (Bld) [Entitic vol] 6.0 fL Low 6.6-10.1 [facility] Comment on above: Order Comment: NEEDS TO BE DRAWN NO LAV TUBE TO USE Performed By: #### G LULS #### Point of Care testing , Platelets (Bld) [#/Vol] 170 10*3/uL Normal 150-450 [facility] Comment on above: Order Comment: NEEDS TO BE DRAWN NO LAV TUBE TO USE Performed By: #### G LULS #### Point of Care testing , RBC (Bld) [#/Vol] 3.42 10*6/uL Low 3.90-5.60 [facility] Comment on above: Order Comment: NEEDS TO BE DRAWN NO LAV TUBE TO USE Performed By: #### G LULS #### Point of Care testing , WBC (Bld) [#/Vol] 3.7 10*3/uL Low 4.1-10.5 [facility] Comment on above: Order Comment: NEEDS TO BE DRAWN NO LAV TUBE TO USE Performed By: #### G LULS #### Point of Care testing , Glucose Poct Glucometerson 0 01-21-2023 Glucose [Mass/Vol] 182 mg/dL Normal [facility] Comment on above: Result Comment: [place] Glucose Reference Range is dependent on time and content of last meal. Glucose of more than 200 mg/dL in a nonstressed, ambulatory subject supports the diagnosis of Diabetes Mellitus. PERFORMED BY: [facility] [address] [place] [address] PATHOLOGIST NETWORK DESIGNER RICHARD OLSEN M.D. Performed By: #### U CREA, REHAN #### [facility] [address] [place] [address] Glucose [Mass/Vol] 156 mg/dL Normal [facility] Comment on above: Result Comment: [place] om Glucose Reference Range is dependent on time and content of last meal. Glucose of more than 200 mg/dL in a nonstressed, ambulatory subject supports the diagnosis of Diabetes Mellitus. PERFORMED BY: [address] [place] [address] PATHOLOGIST NETWORK DESIGNER RICHARD OLSEN M.D. Performed By: #### U CREA, REHAN #### [address] Glucose [Mass/Vol] 173 mg/dL Normal [facility] Comment on above: Result Comment: [place] Glucose Reference Range is dependent on time and content of last meal. Glucose of more than 200 mg/dL in a nonstressed, ambulatory subject supports the diagnosis of Diabetes Mellitus. PERFORMED BY: [place] [address] PATHOLOGIST NETWORK DESIGNER RICHARD OLSEN M.D. Performed By: #### U CREA, REHAN #### [address] Glucose [Mass/Vol] 126 mg/dL Normal [facility] Comment on above: Result Comment: [place] Glucose Reference Range is dependent on time and content of last meal. Glucose of more than 200 mg/dL in a nonstressed, ambulatory subject supports the diagnosis of Diabetes Mellitus. PERFORMED BY: [place] [address] PATHOLOGIST NETWORK DESIGNER RICHARD OLSEN M.D. Performed By: #### U CREA, REHAN #### [facility] [address] [place] [address] Basic Metabolic Panelon 082 Anion gap [Moles/Vol] 0.5 mmol/L Low 6.0-15.[address] [facility] Comment on above: Performed By: #### V ANCR #### [facility] [address] [place] [address] [place] Calcium [Mass/Vol] 9.2 mg/dL Normal 8.6-10.3 [facility] Comment on above: Performed By: #### V ANCR #### [facility] [address] [place] [address] [place] Chloride [Moles/Vol] 108 mmol/L High 98-107 [facility] Comment on above: Performed By: #### V ANCR #### [facility] [address] [place] [address] [place] CO2 [Moles/Vol] 29.4 mmol/L Normal 21.0-31.0 [facility] Comment on above: Performed By: #### V ANCR #### [facility] [address] [place] [address] [place] Creatinine [Mass/Vol] 1.75 mg/dL High 0.70-1.[address] [facility] Comment on above: Performed By: #### V ANCR #### [facility] [address] [place] [address] [place] Creatinine Clr Calc Pharmacy 95.37 [facility] Comment on above: Result Comment: PERF ORMED BY: [place] [address] PATHOLOGIST NETWORK DESIGNER RICHARD OLSEN M.D. Performed By: #### V ANCR #### [place] [address] [place] GFR/1.73 sq M.predicted MDRD (S/P/Bld) [Vol rate/Area] 44.297 mL/min/{1.73_m2} [facility] Comment on above: Performed By: #### V ANCR #### [facility] [address] [place] [address] [place] Glucose [Mass/Vol] 143 mg/dL High 70-100 [facility] Comment on above: Result Comment: [place] Glucose Reference Range is dependent on time and content of last meal. Glucose of more than 200 mg/dL in a nonstressed, ambulatory subject supports the diagnosis of Diabetes Mellitus. ADA recommended reference range Performed By: #### V ANCR #### [facility] [address] [place] [address] Potassium [Moles/Vol] 4.9 mmol/L Normal 3.5-5.[address] [facility] Comment on above: Performed By: #### V ANCR #### [address] Sodium [Moles/Vol] 132 mmol/L Low 136-145 [facility] Comment on above: Performed By: #### V ANCR #### [facility] [address] [place] [address] Urea nitrogen [Mass/Vol] 37 mg/dL High 12-20 [facility] Comment on above: Performed By: #### V ANCR #### [address] Glucose Poct Glucometerson 0 01-20-2023 Glucose [Mass/Vol] 120 mg/dL Normal [facility] Comment on above: Result Comment: [place] om Glucose Reference Range is dependent on time and content of last meal. Glucose of more than 200 mg/dL in a nonstressed, ambulatory subject supports the diagnosis of Diabetes Mellitus. PERFORMED BY: [place] [address] PATHOLOGIST NETWORK DESIGNER RICHARD OLSEN M.D. Performed By: #### U WILLIE, REHAN #### [address] Commemt1 Glu2: Cleaned Meter Normal [facility] Comment on above: Result Comment: PERF ORMED BY: [place] [address] PATHOLOGIST NETWORK DESIGNER RICHARD OLSEN M.D. Performed By: #### U CREJuan, REHAN #### [facility] [address] [place] [address] Glucose [Mass/Vol] 149 mg/dL Normal [facility] Comment on above: Result Comment: [place] om Glucose Reference Range is dependent on time and content of last meal. Glucose of more than 200 mg/dL in a nonstressed, ambulatory subject supports the diagnosis of Diabetes Mellitus. Performed By: #### U CREA, REHAN #### [facility] [address] [address] Glucose [Mass/Vol] 172 mg/dL Normal [facility] Comment on above: Result Comment: [place] [facility] Glucose Reference Range is dependent on time and content of last meal. Glucose of more than 200 mg/dL in a nonstressed, ambulatory subject supports the diagnosis of Diabetes Mellitus. PERFORMED BY: [place] [address] PATHOLOGIST NETWORK DESIGNER RIHCARD OLSEN M.D. Performed By: #### U CREA, REHAN #### [address] Glucose [Mass/Vol] 124 mg/dL Normal [facility] Comment on above: Result Comment: [place] [facility] Glucose Reference Range is dependent on time and content of last meal. Glucose of more than 200 mg/dL in a nonstressed, ambulatory subject supports the diagnosis of Diabetes Mellitus. PERFORMED BY: [place] [address] PATHOLOGIST NETWORK DESIGNER RICHARD OLSEN M.D. Performed By: #### U CREA, REHAN #### [address] Renal Function Panelon 01-20 Albumin [Mass/Vol] 3.3 g/dL Low 3.5-5.7 [facility] Comment on above: Performed By: #### U CREA, REHAN #### [address] Anion gap [Moles/Vol] 9.2 mmol/L Normal 6.0-15.[address] [facility] Comment on above: Performed By: #### U CREA, REHAN #### [facility] [address] Calcium [Mass/Vol] 9.1 mg/dL Normal 8.6-10.3 [facility] Comment on above: Performed By: #### U CREA, REHAN #### [facility] [address] [place] [address] [place] Chloride [Moles/Vol] 103 mmol/L Normal 98-107 [facility] Comment on above: Performed By: #### U CREA, REHAN #### [facility] [address] [place] [address] [place] CO2 [Moles/Vol] 28.7 mmol/L Normal 21.0-31.0 [facility] Comment on above: Performed By: #### U CREA, REHAN #### [facility] [address] [place] [address] [place] Creatinine [Mass/Vol] 1.75 mg/dL High 0.70-1.[address] [facility] Comment on above: Performed By: #### U CREA, REHAN #### [facility] [address] [place] [address] [place] Creatinine Clr Calc Pharmacy 95.37 [facility] Comment on above: Result Comment: PERF ORMED BY: [place] [address] PATHOLOGIST NETWORK DESIGNER RICHARD OLSEN M.D. Performed By: #### U CREA, REHAN #### [facility] [address] [place] [address] [place] GFR/1.73 sq M.predicted MDRD (S/P/Bld) [Vol rate/Area] 44.297 mL/min/{1.73_m2} [facility] Comment on above: Performed By: #### U CREA, REHAN #### [facility] [address] [place] [address] [place] Glucose [Mass/Vol] 155 mg/dL High 70-100 [facility] Comment on above: Result Comment: [place] Glucose Reference Range is dependent on time and content of last meal. Glucose of more than 200 mg/dL in a nonstressed, ambulatory subject supports the diagnosis of Diabetes Mellitus. ADA recommended reference range Performed By: #### U CREA, REHAN #### [facility] [address] Phosphate [Mass/Vol] 4.0 mg/dL Normal 3.7-7.2 [facility] Comment on above: Performed By: #### U CREA, REHAN #### [facility] [address] Potassium [Moles/Vol] 4.9 mmol/L Normal 3.5-5.[address] [facility] Comment on above: Performed By: #### U CREA, REHAN #### [facility] [address] Sodium [Moles/Vol] 136 mmol/L Normal 136-145 [facility] Comment on above: Performed By: #### U CREA, REHAN #### [address] Urea nitrogen [Mass/Vol] 39 mg/dL High 7-25 [facility] Comment on above: Performed By: #### U CREA, REHAN #### [address] Glucose Poct Glucometerson 0 01-19-2023 Glucose [Mass/Vol] 150 mg/dL Normal [facility] Comment on above: Result Comment: [facility] Glucose Reference Range is dependent on time and content of last meal. Glucose of more than 200 mg/dL in a nonstressed, ambulatory subject supports the diagnosis of Diabetes Mellitus. PERFORMED BY: [place] [address] PATHOLOGIST NETWORK DESIGNER RICHARD OLSEN M.D. Performed By: #### V ANCR #### [facility] [address] [place] [address] [place] Commemt1 Glu2: Cleaned Meter Normal [facility] Comment on above: Result Comment: PERF ORMED BY: [place] [address] PATHOLOGIST NETWORK DESIGNER RICHARD OLSEN M.D. Performed By: #### U CREA, REHAN #### [facility] [address] [place] [address] [place] Glucose [Mass/Vol] 117 mg/dL Normal [facility] Comment on above: Result Comment: [place] Glucose Reference Range is dependent on time and content of last meal. Glucose of more than 200 mg/dL in a nonstressed, ambulatory subject supports the diagnosis of Diabetes Mellitus. Performed By: #### U CREA, REHAN #### [facility] [address] Renal Function Panelon 01-19 Albumin [Mass/Vol] 3.3 g/dL Low 3.5-5.7 [facility] Comment on above: Performed By: #### U CREA, REHAN #### [facility] [address] Anion gap [Moles/Vol] 10.1 mmol/L Normal 6.0-15.0 [facility] Comment on above: Performed By: #### U CREA, REHAN #### [facility] [address] Calcium [Mass/Vol] 8.7 mg/dL Normal 8.6-10.3 [facility] Comment on above: Performed By: #### U CREA, REHAN #### [facility] [address] [place] [address] [place] Chloride [Moles/Vol] 105 mmol/L Normal 98-107 [facility] Comment on above: Performed By: #### U CREA, REHAN #### [facility] [address] CO2 [Moles/Vol] 27.9 mmol/L Normal 21.0-31.0 [facility] Comment on above: Performed By: #### U CREA, REHAN #### [facility] [address] [place] [address] [place] Creatinine [Mass/Vol] 1.97 mg/dL High 0.70-1.[address] [facility] Comment on above: Performed By: #### U CREA, REHAN #### [facility] [address] [place] [address] [place] Creatinine Clr Calc Pharmacy 84.24 Normal [facility] Comment on above: Result Comment: PERF ORMED BY: [place] [address] PATHOLOGIST NETWORK DESIGNER RICHARD OLSEN M.D. Performed By: #### U CREA, REHAN #### [place] [address] [place] GFR/1.73 sq M.predicted MDRD (S/P/Bld) [Vol rate/Area] 38.429 mL/min/{1.73_m2} Normal [facility] Comment on above: Performed By: #### U CREA, REHAN #### [address] Glucose [Mass/Vol] 100 mg/dL Normal 70-100 [facility] Comment on above: Result Comment: [place] Glucose Reference Range is dependent on time and content of last meal. Glucose of more than 200 mg/dL in a nonstressed, ambulatory subject supports the diagnosis of Diabetes Mellitus. ADA recommended reference range Performed By: #### U CREA, REHAN #### [place] [address] [place] Phosphate [Mass/Vol] 4.4 mg/dL Normal 3.7-7.2 [facility] Comment on above: Performed By: #### U CREA, REHAN #### [place] [address] [place] Potassium [Moles/Vol] 5.0 mmol/L Normal 3.5-5.[address] [facility] Comment on above: Performed By: #### U CREA, REHAN #### [place] [address] [place] Sodium [Moles/Vol] 138 mmol/L Normal 136-145 [facility] Comment on above: Performed By: #### U CREA, REHAN #### [place] [address] [place] Urea nitrogen [Mass/Vol] 41 mg/dL High 7-25 [facility] Comment on above: Performed By: #### U CREA, REHAN #### [place] [address] [place] Creatine Kinaseon 08-23-2023 CK [Catalytic activity/Vol] 57 U/L Normal 30-223 [facility] Comment on above: Result Comment: PERF ORMED BY: [place] [address] PATHOLOGIST NETWORK DESIGNER RICHARD OLSEN M.D. Performed By: #### U CREA, REHAN #### [facility] [address] [place] [address] Glucose Poct Glucometerson 0 01-18-2023 Glucose [Mass/Vol] 151 mg/dL Normal [facility] Comment on above: Result Comment: [facility] Glucose Reference Range is dependent on time and content of last meal. Glucose of more than 200 mg/dL in a nonstressed, ambulatory subject supports the diagnosis of Diabetes Mellitus. PERFORMED BY: [place] [address] PATHOLOGIST NETWORK DESIGNER RICHARD OLSEN M.D. Performed By: #### G LULS #### Point of Care testing , Glucose [Mass/Vol] 149 mg/dL Normal [facility] Comment on above: Result Comment: [place] Glucose Reference Range is dependent on time and content of last meal. Glucose of more than 200 mg/dL in a nonstressed, ambulatory subject supports the diagnosis of Diabetes Mellitus. PERFORMED BY: [place] [address] PATHOLOGIST NETWORK DESIGNER RICHARD OLSEN M.D. Performed By: #### V ANCR #### [facility] [address] [place] [address] Glucose [Mass/Vol] 142 mg/dL Normal [facility] Comment on above: Result Comment: [facility] Glucose Reference Range is dependent on time and content of last meal. Glucose of more than 200 mg/dL in a nonstressed, ambulatory subject supports the diagnosis of Diabetes Mellitus. PERFORMED BY: [place] [address] PATHOLOGIST NETWORK DESIGNER RICHARD OLSEN M.D. Performed By: #### V ANCR #### [address] [place] [address] [place] Glucose [Mass/Vol] 140 mg/dL Normal [facility] Comment on above: Result Comment: [facility] Glucose Reference Range is dependent on time and content of last meal. Glucose of more than 200 mg/dL in a nonstressed, ambulatory subject supports the diagnosis of Diabetes Mellitus. PERFORMED BY: [place] [address] PATHOLOGIST NETWORK DESIGNER RICHARD OLSEN M.D. Performed By: #### U CREA, REHAN #### [facility] [address] Renal Function Panelon 01-18 Albumin [Mass/Vol] 3.2 g/dL Low 3.5-5.7 [facility] Comment on above: Performed By: #### U CREA, REHAN #### [facility] [address] Anion gap [Moles/Vol] 10.3 mmol/L Normal 6.0-15.0 [facility] Comment on above: Performed By: #### U CREA, REHAN #### [place] [address] [place] Calcium [Mass/Vol] 8.7 mg/dL Normal 8.6-10.3 [facility] Comment on above: Performed By: #### U CREA, REHAN #### [facility] [address] [place] [address] [place] Chloride [Moles/Vol] 105 mmol/L Normal 98-107 [facility] Comment on above: Performed By: #### U CREA, REHAN #### [facility] [address] [place] [address] [place] CO2 [Moles/Vol] 27.8 mmol/L Normal 21.0-31.0 [facility] Comment on above: Performed By: #### U CREA, REHAN #### [facility] [address] [place] [address] [place] Creatinine [Mass/Vol] 2.38 mg/dL High 0.70-1.[address] [facility] Comment on above: Performed By: #### U CREA, REHAN #### [facility] [address] [place] [address] [place] Creatinine Clr Calc Pharmacy 70.15 Normal [facility] Comment on above: Result Comment: PERF ORMED BY: [place] [address] PATHOLOGIST NETWORK DESIGNER RICHARD OLSEN M.D. Performed By: #### U CREA, REHAN #### [place] [address] [place] GFR/1.73 sq M.predicted MDRD (S/P/Bld) [Vol rate/Area] 30.628 mL/min/{1.73_m2} Normal [facility] Comment on above: Performed By: #### U CREA, REHAN #### [address] Glucose [Mass/Vol] 118 mg/dL High 70-100 [facility] Comment on above: Result Comment: [place] Glucose Reference Range is dependent on time and content of last meal. Glucose of more than 200 mg/dL in a nonstressed, ambulatory subject supports the diagnosis of Diabetes Mellitus. ADA recommended reference range Performed By: #### U CREA, REHAN #### [place] [address] [place] Phosphate [Mass/Vol] 4.6 mg/dL Normal 3.7-7.2 [facility] Comment on above: Performed By: #### U CREA, REHAN #### [place] [address] [place] Potassium [Moles/Vol] 5.1 mmol/L Normal 3.5-5.[address] [facility] Comment on above: Performed By: #### U CREA, REHAN #### [place] [address] [place] Sodium [Moles/Vol] 138 mmol/L Normal 136-145 [facility] Comment on above: Performed By: #### U CREA, REHAN #### [place] [address] [place] Urea nitrogen [Mass/Vol] 46 mg/dL High 7-25 [facility] Comment on above: Performed By: #### U WILLIE, REHAN #### [facility] [address] Glucose Poct Glucometerson 0 01-17-2023 Glucose [Mass/Vol] 173 mg/dL Normal [facility] Comment on above: Result Comment: [place] Glucose Reference Range is dependent on time and content of last meal. Glucose of more than 200 mg/dL in a nonstressed, ambulatory subject supports the diagnosis of Diabetes Mellitus. PERFORMED BY: [place] [address] PATHOLOGIST NETWORK DESIGNER RICHARD OLSEN M.D. Performed By: #### G LULS #### Point of Care testing , Glucose [Mass/Vol] 102 mg/dL Normal [facility] Comment on above: Result Comment: [facility] Glucose Reference Range is dependent on time and content of last meal. Glucose of more than 200 mg/dL in a nonstressed, ambulatory subject supports the diagnosis of Diabetes Mellitus. PERFORMED BY: [place] [address] PATHOLOGIST NETWORK DESIGNER RICHARD OLSEN M.D. Performed By: #### U WILLIE, REHAN #### [facility] [address] Glucose [Mass/Vol] 137 mg/dL Normal [facility] Comment on above: Result Comment: [place] Glucose Reference Range is dependent on time and content of last meal. Glucose of more than 200 mg/dL in a nonstressed, ambulatory subject supports the diagnosis of Diabetes Mellitus. PERFORMED BY: [place] [address] PATHOLOGIST NETWORK DESIGNER RICHARD OLSEN M.D. Performed By: #### U WILLIE, REHAN #### [facility] [address] Glucose [Mass/Vol] 140 mg/dL Normal [facility] Comment on above: Result Comment: [place] Glucose Reference Range is dependent on time and content of last meal. Glucose of more than 200 mg/dL in a nonstressed, ambulatory subject supports the diagnosis of Diabetes Mellitus. PERFORMED BY: [place] [address] PATHOLOGIST NETWORK DESIGNER RICHARD OLSEN M.D. Performed By: #### U CREA, REHAN #### [address] Glucose [Mass/Vol] 109 mg/dL Normal [facility] Comment on above: Result Comment: [place] Glucose Reference Range is dependent on time and content of last meal. Glucose of more than 200 mg/dL in a nonstressed, ambulatory subject supports the diagnosis of Diabetes Mellitus. PERFORMED BY: [place] [address] PATHOLOGIST NETWORK DESIGNER RICHARD OLSEN M.D. Performed By: #### U CREA, REHAN #### [address] Renal Function Panelon 01-17 Albumin [Mass/Vol] 3.3 g/dL Low 3.5-5.7 [facility] Comment on above: Performed By: #### U CREA, REHAN #### [address] Anion gap [Moles/Vol] 9.7 mmol/L Normal 6.0-15.[address] [facility] Comment on above: Performed By: #### U CREA, REHAN #### [address] Calcium [Mass/Vol] 8.9 mg/dL Normal 8.6-10.3 [facility] Comment on above: Performed By: #### U CREA, REHAN #### [address] Chloride [Moles/Vol] 105 mmol/L Normal 98-107 [facility] Comment on above: Performed By: #### U CREA, REHAN #### [place] [address] [place] CO2 [Moles/Vol] 27.4 mmol/L Normal 21.0-31.0 [facility] Comment on above: Performed By: #### U CREA, REHAN #### [facility] [address] Creatinine [Mass/Vol] 2.14 mg/dL High 0.70-1.[address] [facility] Comment on above: Performed By: #### U CREA, REHAN #### [facility] [address] [place] [address] [place] Creatinine Clr Calc Pharmacy 77.82 [facility] Comment on above: Result Comment: PERF ORMED BY: [place] [address] PATHOLOGIST NETWORK DESIGNER RICHARD OLSEN M.D. Performed By: #### U CREA, REHAN #### [address] GFR/1.73 sq M.predicted MDRD (S/P/Bld) [Vol rate/Area] 34.796 mL/min/{1.73_m2} [facility] Comment on above: Performed By: #### U CREA, REHAN #### [address] Glucose [Mass/Vol] 124 mg/dL High 70-100 [facility] Comment on above: Result Comment: [place] Glucose Reference Range is dependent on time and content of last meal. Glucose of more than 200 mg/dL in a nonstressed, ambulatory subject supports the diagnosis of Diabetes Mellitus. ADA recommended reference range Performed By: #### U CREA, REHAN #### [facility] [address] [place] [address] [place] Phosphate [Mass/Vol] 4.9 mg/dL Normal 3.7-7.2 [facility] Comment on above: Performed By: #### U CREA, REHAN #### [facility] [address] [place] [address] [place] Potassium [Moles/Vol] 5.1 mmol/L Normal 3.5-5.[address] [facility] Comment on above: Performed By: #### U CREA, REHAN #### [facility] [address] [place] [id number] [place] Sodium [Moles/Vol] 137 mmol/L Normal 136-145 [facility] Comment on above: Performed By: #### U CREA, REHAN #### [facility] [address] [place] [address] [place] Urea nitrogen [Mass/Vol] 49 mg/dL High 7-25 [facility] Comment on above: Performed By: #### U CREA, REHAN #### [facility] [address] [place] [address] [place] Ferritinon 01-16-2023 Ferritin [Mass/Vol] 45.3 ng/mL Normal 23.9-336.2 [facility] Comment on above: Performed By: #### V ANCR #### [facility] [address] [place] [address] Glucose Poct Glucometerson 0 01-16-2023 Glucose [Mass/Vol] 114 mg/dL Normal [facility] Comment on above: Result Comment: [place] [facility] Glucose Reference Range is dependent on time and content of last meal. Glucose of more than 200 mg/dL in a nonstressed, ambulatory subject supports the diagnosis of Diabetes Mellitus. PERFORMED BY: [place] [address] PATHOLOGIST NETWORK DESIGNER RICHARD OLSEN M.D. Performed By: #### U CREJuan, REHAN #### [facility] [address] [place] [address] Commemt1 Glu2: Cleaned Meter Normal [facility] Comment on above: Result Comment: PERF ORMED BY: [place] [address] PATHOLOGIST NETWORK DESIGNER RICHARD OLSEN M.D. Performed By: #### U CREA, REHAN #### [facility] [address] [place], [place] [id number] [facility] Glucose [Mass/Vol] 89 mg/dL Normal [facility] Comment on above: Result Comment: [place] [facility] Glucose Reference Range is dependent on time and content of last meal. Glucose of more than 200 mg/dL in a nonstressed, ambulatory subject supports the diagnosis of Diabetes Mellitus. Performed By: #### U CREA, REHAN #### [facility] [address] Commemt1 Glu2: Cleaned Meter Normal [facility] Comment on above: Result Comment: PERF ORMED BY: [place] [address] PATHOLOGIST NETWORK DESIGNER RICHARD OLSEN M.D. Performed By: #### U CREA, REHAN #### [address] Glucose [Mass/Vol] 125 mg/dL Normal [facility] Comment on above: Result Comment: [place] [facility] Glucose Reference Range is dependent on time and content of last meal. Glucose of more than 200 mg/dL in a nonstressed, ambulatory subject supports the diagnosis of Diabetes Mellitus. Performed By: #### U CREA, REHAN #### [address] Glucose [Mass/Vol] 119 mg/dL Normal [facility] Comment on above: Result Comment: [place] [facility] Glucose Reference Range is dependent on time and content of last meal. Glucose of more than 200 mg/dL in a nonstressed, ambulatory subject supports the diagnosis of Diabetes Mellitus. PERFORMED BY: [place] [address] PATHOLOGIST NETWORK DESIGNER RICHARD OLSEN M.D. Performed By: #### U CREA, REHAN #### [address] Glucose [Mass/Vol] 94 mg/dL Normal [facility] Comment on above: Result Comment: [place] [facility] Glucose Reference Range is dependent on time and content of last meal. Glucose of more than 200 mg/dL in a nonstressed, ambulatory subject supports the diagnosis of Diabetes Mellitus. PERFORMED BY: [place] [address] PATHOLOGIST NETWORK DESIGNER JIANLAN SUN M.D. Performed By: #### U CREA, REHAN #### [address] Glucose [Mass/Vol] 82 mg/dL Normal [facility] Comment on above: Result Comment: [facility] Glucose Reference Range is dependent on time and content of last meal. Glucose of more than 200 mg/dL in a nonstressed, ambulatory subject supports the diagnosis of Diabetes Mellitus. PERFORMED BY: [place] [address] PATHOLOGIST NETWORK DESIGNER RICHARD OLSEN M.D. Performed By: #### U WILLIE, REHAN #### [address] Hemogram CBC Without Diffon 01-16-2023 Erythrocyte distribution width (RBC) [Ratio] 19.4 % High 12.0-14.8 [facility] Comment on above: Performed By: #### V ANCR #### [address] Hematocrit (Bld) [Volume fraction] 28.1 % Low 38.8-50.0 [facility] Comment on above: Performed By: #### V ANCR #### [address] Hemoglobin (Bld) [Mass/Vol] 8.9 g/dL Low 13.0-17.0 [facility] Comment on above: Performed By: #### V ANCR #### [address] MCH (RBC) [Entitic mass] 25.4 pg Low 27.5-35.2 [facility] Comment on above: Performed By: #### V ANCR #### [address] MCV (RBC) [Entitic vol] 80.2 fL Low 83.5-101 [facility] Comment on above: Performed By: #### V ANCR #### [address] Mean Corpuscular HGB Conc 31.7 g/dL Low 32.5-35.6 [facility] Comment on above: Performed By: #### V ANCR #### [address] Platelet mean volume (Bld) [Entitic vol] 6.1 fL Low 6.6-10.1 [facility] Comment on above: Result Comment: PERF ORMED BY: [address] [place] [address] PATHOLOGIST NETWORK DESIGNER RICHARD OLSEN M.D. Performed By: #### V ANCR #### [address] Platelets (Bld) [#/Vol] 231 10*3/uL Normal 150-450 [facility] Comment on above: Performed By: #### V ANCR #### [address] RBC (Bld) [#/Vol] 3.50 10*6/uL Low 3.90-5.60 [facility] Comment on above: Performed By: #### V ANCR #### [address] WBC (Bld) [#/Vol] 4.3 10*3/uL Normal 4.1-10.5 [facility] Comment on above: Performed By: #### V ANCR #### [address] Iron and TIBC Profileon 12-28 % Iron Saturation 12.9 % Low 20-50 [facility] Comment on above: Performed By: #### V ANCR #### [facility] [address] [place] [address] Iron [Mass/Vol] 44 ug/dL Low 50-212 [facility] Comment on above: Performed By: #### V ANCR #### [address] Total Iron Binding Capacity 342 ug/dL Normal 255-450 [facility] Comment on above: Performed By: #### V ANCR #### [facility] [address] Transferrin [Mass/Vol] 244 mg/dL Normal 203-362 [facility] Comment on above: Performed By: #### V ANCR #### [facility] [address] Renal Function Panelon 01-16 Albumin [Mass/Vol] 3.3 g/dL Low 3.5-5.7 [facility] Comment on above: Performed By: #### V ANCR #### [facility] [address] Anion gap [Moles/Vol] 10.5 mmol/L Normal 6.0-15.0 [facility] Comment on above: Performed By: #### V ANCR #### [facility] [address] Calcium [Mass/Vol] 9.0 mg/dL Normal 8.6-10.3 [facility] Comment on above: Performed By: #### V ANCR #### [facility] [address] [place] [id number] [facility] Chloride [Moles/Vol] 104 mmol/L Normal 98-107 [facility] Comment on above: Performed By: #### V ANCR #### [facility] [address] CO2 [Moles/Vol] 26.6 mmol/L Normal 21.0-31.0 [facility] Comment on above: Performed By: #### V ANCR #### [facility] [address] Creatinine [Mass/Vol] 1.98 mg/dL High 0.70-1.[address] [facility] Comment on above: Performed By: #### V ANCR #### [facility] [address] [place] [address] [place] Creatinine Clr Calc Pharmacy 84.39 Normal [facility] Comment on above: Performed By: #### V ANCR #### [facility] [address] [place] [address] [place] GFR/1.73 sq M.predicted MDRD (S/P/Bld) [Vol rate/Area] 38.196 mL/min/{1.73_m2} Normal [facility] Comment on above: Performed By: #### V ANCR #### [facility] [address] Glucose [Mass/Vol] 125 mg/dL High 70-100 [facility] Comment on above: Result Comment: [facility] Center Glucose Reference Range is dependent on time and content of last meal. Glucose of more than 200 mg/dL in a nonstressed, ambulatory subject supports the diagnosis of Diabetes Mellitus. ADA recommended reference range Performed By: #### V ANCR #### [facility] [address] [place] [address] Phosphate [Mass/Vol] 5.1 mg/dL Normal 3.7-7.2 [facility] Comment on above: Performed By: #### V ANCR #### [facility] [address] [place] [address] Potassium [Moles/Vol] 5.1 mmol/L Normal 3.5-5.[address] [facility] Comment on above: Performed By: #### V ANCR #### [facility] [address] [place] [address] Sodium [Moles/Vol] 136 mmol/L Normal 136-145 [facility] Comment on above: Performed By: #### V ANCR #### [facility] [address] [place] [address] [place] Urea nitrogen [Mass/Vol] 47 mg/dL High 7-25 [facility] Comment on above: Performed By: #### V ANCR #### [facility] [address] [place] [address] [place] Vit. B12/Folate Profileon Cobalamin (Vitamin B12) [Mass/Vol] 462 pg/mL Normal 180-914 [facility] Comment on above: Performed By: #### V ANCR #### [facility] [address] [place] [address] Folate 9.1 ng/mL Normal >5.9 [facility] Comment on above: Result Comment: Dipti te reference range: >5.9 ng/ml The WHO technical consultation on folate and vitamin b12 deficiencies has determined that folate concentrations less than 4 ng/ml are considered deficient. PERFORMED BY: [place] [address] PATHOLOGIST NETWORK DESIGNER RICHARD OLSEN M.D. Performed By: #### V ANCR #### [facility] [address] [place] [address] [place] Glucose Poct Glucometerson 0 01-15-2023 Glucose [Mass/Vol] 109 mg/dL Normal [facility] Comment on above: Result Comment: [facility] Glucose Reference Range is dependent on time and content of last meal. Glucose of more than 200 mg/dL in a nonstressed, ambulatory subject supports the diagnosis of Diabetes Mellitus. PERFORMED BY: [place] [address] PATHOLOGIST NETWORK DESIGNER RICHARD OLSEN M.D. Performed By: #### U CREA, REHAN #### [facility] [address] [place] [address] [place] Glucose [Mass/Vol] 99 mg/dL Normal [facility] Comment on above: Result Comment: [facility] Glucose Reference Range is dependent on time and content of last meal. Glucose of more than 200 mg/dL in a nonstressed, ambulatory subject supports the diagnosis of Diabetes Mellitus. PERFORMED BY: [place] [id number] PATHOLOGIST NETWORK DESIGNER RICHARD OLSEN M.D. Performed By: #### U CREA, REHAN #### [facility] [address] [place] [address] [place] Glucose [Mass/Vol] 75 mg/dL Normal [facility] Comment on above: Result Comment: [facility] Glucose Reference Range is dependent on time and content of last meal. Glucose of more than 200 mg/dL in a nonstressed, ambulatory subject supports the diagnosis of Diabetes Mellitus. PERFORMED BY: [place] [id number] PATHOLOGIST NETWORK DESIGNER RICHARD OLSEN M.D. Performed By: #### U CREA, REHAN #### [facility] [address] [place] [address] [place] Glucose [Mass/Vol] 69 mg/dL Normal [facility] Comment on above: Result Comment: [facility] Glucose Reference Range is dependent on time and content of last meal. Glucose of more than 200 mg/dL in a nonstressed, ambulatory subject supports the diagnosis of Diabetes Mellitus. PERFORMED BY: [place] [address] PATHOLOGIST NETWORK DESIGNER RICHARD OLSEN M.D. Performed By: #### U CREA, REHAN #### [facility] [address] [place] [address] Glucose [Mass/Vol] 111 mg/dL Normal [facility] Comment on above: Result Comment: [facility] Glucose Reference Range is dependent on time and content of last meal. Glucose of more than 200 mg/dL in a nonstressed, ambulatory subject supports the diagnosis of Diabetes Mellitus. PERFORMED BY: [place] [address] PATHOLOGIST NETWORK DESIGNER RICHARD OLSEN M.D. Performed By: #### U CREA, REHAN #### [address] Glucose [Mass/Vol] 102 mg/dL Normal [facility] Comment on above: Result Comment: [facility] Glucose Reference Range is dependent on time and content of last meal. Glucose of more than 200 mg/dL in a nonstressed, ambulatory subject supports the diagnosis of Diabetes Mellitus. PERFORMED BY: [place] [address] PATHOLOGIST NETWORK DESIGNER RICHARD OLSEN M.D. Performed By: #### U CREA, REHAN #### [facility] [address] [place] [address] [place] Glucose [Mass/Vol] 101 mg/dL Normal [facility] Comment on above: Result Comment: [facility] Glucose Reference Range is dependent on time and content of last meal. Glucose of more than 200 mg/dL in a nonstressed, ambulatory subject supports the diagnosis of Diabetes Mellitus. PERFORMED BY: [facility] [address] [place] [address] PATHOLOGIST NETWORK DESIGNER RICHARD OLSEN M.D. Performed By: #### U CREA, REHAN #### [facility] [address] Renal Function Panelon 01-15 Albumin [Mass/Vol] 3.2 g/dL Low 3.5-5.7 [facility] Comment on above: Performed By: #### U CREA, REHAN #### [facility] [address] Anion gap [Moles/Vol] 10.5 mmol/L Normal 6.0-15.0 [facility] Comment on above: Performed By: #### U CREA, REHAN #### [facility] [address] Calcium [Mass/Vol] 9.0 mg/dL Normal 8.6-10.3 [facility] Comment on above: Performed By: #### U CREA, REHAN #### [facility] [address] [place] [address] [place] Chloride [Moles/Vol] 104 mmol/L Normal 98-107 [facility] Comment on above: Performed By: #### U CREA, REHAN #### [facility] [address] CO2 [Moles/Vol] 26.5 mmol/L Normal 21.0-31.0 [facility] Comment on above: Performed By: #### U CREA, REHAN #### [facility] [address] [place] [address] [place] Creatinine [Mass/Vol] 2.04 mg/dL High 0.70-1.[address] [facility] Comment on above: Performed By: #### U CREA, REHAN #### [facility] [address] [place] [address] [place] Creatinine Clr Calc Pharmacy 81.49 Normal [facility] Comment on above: Result Comment: PERF ORMED BY: [place] [address] PATHOLOGIST NETWORK DESIGNER RICHARD OLSEN M.D. Performed By: #### U CREA, REHAN #### [place] [address] [place] GFR/1.73 sq M.predicted MDRD (S/P/Bld) [Vol rate/Area] 36.852 mL/min/{1.73_m2} Normal [facility] Comment on above: Performed By: #### U CREA, REHAN #### [address] Glucose [Mass/Vol] 86 mg/dL Normal 70-100 [facility] Comment on above: Result Comment: [facility] Glucose Reference Range is dependent on time and content of last meal. Glucose of more than 200 mg/dL in a nonstressed, ambulatory subject supports the diagnosis of Diabetes Mellitus. ADA recommended reference range Performed By: #### U CREA, REHAN #### [place] [address] [place] Phosphate [Mass/Vol] 4.8 mg/dL Normal 3.7-7.2 [facility] Comment on above: Performed By: #### U CREA, REHAN #### [place] [address] [place] Potassium [Moles/Vol] 5.0 mmol/L Normal 3.5-5.[address] [facility] Comment on above: Performed By: #### U CREA, REHAN #### [place] [address] [place] Sodium [Moles/Vol] 136 mmol/L Normal 136-145 [facility] Comment on above: Performed By: #### U CREA, REHAN #### [place] [address] [place] Urea nitrogen [Mass/Vol] 56 mg/dL High 7-25 [facility] Comment on above: Performed By: #### U CREA, REHAN #### [place] [address] [place] Glucose Poct Glucometerson 0 01-14-2023 Glucose [Mass/Vol] 97 mg/dL Normal [facility] Comment on above: Result Comment: [facility] Glucose Reference Range is dependent on time and content of last meal. Glucose of more than 200 mg/dL in a nonstressed, ambulatory subject supports the diagnosis of Diabetes Mellitus. PERFORMED BY: [place] [address] PATHOLOGIST NETWORK DESIGNER RICHARD OLSEN M.D. Performed By: #### U CREA, REHAN #### [facility] [address] [place], [place] [id number] [place] Glucose [Mass/Vol] 93 mg/dL Normal [facility] Comment on above: Result Comment: [facility] Glucose Reference Range is dependent on time and content of last meal. Glucose of more than 200 mg/dL in a nonstressed, ambulatory subject supports the diagnosis of Diabetes Mellitus. PERFORMED BY: [place] [address] PATHOLOGIST NETWORK DESIGNER RICHARD OLSEN M.D. Performed By: #### U CREA, REHAN #### [place] [id number] [facility] Glucose [Mass/Vol] 100 mg/dL Normal [facility] Comment on above: Result Comment: [facility] Glucose Reference Range is dependent on time and content of last meal. Glucose of more than 200 mg/dL in a nonstressed, ambulatory subject supports the diagnosis of Diabetes Mellitus. PERFORMED BY: [place] [id number] PATHOLOGIST NETWORK DESIGNER RICHARD OLSEN M.D. Performed By: #### U CREA, REHAN #### [facility] [address] [place], [place] [id number] [place] Glucose [Mass/Vol] 135 mg/dL Normal [facility] Comment on above: Result Comment: [facility] Glucose Reference Range is dependent on time and content of last meal. Glucose of more than 200 mg/dL in a nonstressed, ambulatory subject supports the diagnosis of Diabetes Mellitus. PERFORMED BY: [place] [id number] PATHOLOGIST NETWORK DESIGNER RICHARD OLSEN M.D. Performed By: #### U CREJuan, REHAN #### [address] Glucose [Mass/Vol] 116 mg/dL Normal [facility] Comment on above: Result Comment: [facility] Glucose Reference Range is dependent on time and content of last meal. Glucose of more than 200 mg/dL in a nonstressed, ambulatory subject supports the diagnosis of Diabetes Mellitus. PERFORMED BY: [place] [address] PATHOLOGIST NETWORK DESIGNER RICHARD OLSEN M.D. Performed By: #### U CREJuan, REHAN #### [address] Glucose [Mass/Vol] 134 mg/dL Normal [facility] Comment on above: Result Comment: [facility] Glucose Reference Range is dependent on time and content of last meal. Glucose of more than 200 mg/dL in a nonstressed, ambulatory subject supports the diagnosis of Diabetes Mellitus. PERFORMED BY: [place] [address] PATHOLOGIST NETWORK DESIGNER RICHARD OLSEN M.D. Performed By: #### U WILLIE, REHAN #### [address] Renal Function Panelon 01-14 Albumin [Mass/Vol] 3.1 g/dL Low 3.5-5.7 [facility] Comment on above: Performed By: #### V ANCR #### [address] Anion gap [Moles/Vol] 9.9 mmol/L Normal 6.0-15.[address] [facility] Comment on above: Performed By: #### V ANCR #### [address] Calcium [Mass/Vol] 8.6 mg/dL Normal 8.6-10.3 [facility] Comment on above: Performed By: #### V ANCR #### [facility] [address] Chloride [Moles/Vol] 105 mmol/L Normal 98-107 [facility] Comment on above: Performed By: #### V ANCR #### [facility] [address] CO2 [Moles/Vol] 27.1 mmol/L Normal 21.0-31.0 [facility] Comment on above: Performed By: #### V ANCR #### [address] Creatinine [Mass/Vol] 2.28 mg/dL High 0.70-1.[address] [facility] Comment on above: Performed By: #### V ANCR #### [address] Creatinine Clr Calc Pharmacy 72.91 Normal [facility] Comment on above: Result Comment: PERF ORMED BY: [place] [address] PATHOLOGIST NETWORK DESIGNER RICHARD OLSEN M.D. Performed By: #### V ANCR #### [address] GFR/1.73 sq M.predicted MDRD (S/P/Bld) [Vol rate/Area] 32.248 mL/min/{1.73_m2} Normal [facility] Comment on above: Performed By: #### V ANCR #### [address] Glucose [Mass/Vol] 107 mg/dL High 70-100 [facility] Comment on above: Result Comment: [facility] Glucose Reference Range is dependent on time and content of last meal. Glucose of more than 200 mg/dL in a nonstressed, ambulatory subject supports the diagnosis of Diabetes Mellitus. ADA recommended reference range Performed By: #### V ANCR #### [address] Phosphate [Mass/Vol] 4.6 mg/dL Normal 3.7-7.2 [facility] Comment on above: Performed By: #### V ANCR #### [facility] [address] [place] [address] [place] Potassium [Moles/Vol] 5.0 mmol/L Normal 3.5-5.[address] [facility] Comment on above: Performed By: #### V ANCR #### [facility] [address] [place] [address] [place] Sodium [Moles/Vol] 137 mmol/L Normal 136-145 [facility] Comment on above: Performed By: #### V ANCR #### [facility] [address] [place] [address] [place] Urea nitrogen [Mass/Vol] 54 mg/dL High 7-25 [facility] Comment on above: Performed By: #### V ANCR #### [facility] [address] [place] [address] [place] Creatinine, Urine (Random)on 01-13-2023 Creatinine, Urine (Random) 48.0 mg/dL High 14.0-26.0 [facility] Comment on above: Performed By: #### U CREA, REHAN #### [facility] [address] [place] [address] [place] Dipstick and Microscopicon 0 01-13-2023 Appearance (U) Cloudy Critically abnormal Clear [facility] Comment on above: Order Comment: Comme nt please draw the sample from the tube Name Collection Type:: Sanchez Catheter Performed By: #### G LULS #### Point of Care testing , Bacteria,Urine None Seen Normal None Seen [facility] Comment on above: Order Comment: Comme nt please draw the sample from the tube Name Collection Type:: Sanchez Catheter Performed By: #### G LULS #### Point of Care testing , Bilirubin,Urine Negative Normal Negative [facility] Comment on above: Order Comment: Comme nt please draw the sample from the tube Name Collection Type:: Sanchez Catheter Performed By: #### G LULS #### Point of Care testing , Color (U) Yellow Normal Yellow [facility] Comment on above: Order Comment: Comme nt please draw the sample from the tube Name Collection Type:: Sanchez Catheter Performed By: #### G LULS #### Point of Care testing , Glucose Ql (U) Normal Normal Normal [facility] Comment on above: Order Comment: Comme nt please draw the sample from the tube Name Collection Type:: Sanchez Catheter Performed By: #### G LULS #### Point of Care testing , Hyaline Casts,Urine 0-8 Normal 0-8 [facility] Comment on above: Order Comment: Comme nt please draw the sample from the tube Name Collection Type:: Sanchez Catheter Performed By: #### G LULS #### Point of Care testing , Ketones Ql (U) Negative Normal Negative [facility] Comment on above: Order Comment: Comme nt please draw the sample from the tube Name Collection Type:: Sanchez Catheter Performed By: #### G LULS #### Point of Care testing , Leukocyte esterase Test strip Ql (U) 1+ High Negative [facility] Comment on above: Order Comment: Comme nt please draw the sample from the tube Name Collection Type:: Sanchez Catheter Performed By: #### G LULS #### Point of Care testing , Nitrite,Urine Negative Normal Negative [facility] Comment on above: Order Comment: Comme nt please draw the sample from the tube Name Collection Type:: Sanchez Catheter Performed By: #### G LULS #### Point of Care testing , Occult Blood,Urine 1+ High Negative [facility] Comment on above: Order Comment: Comme nt please draw the sample from the tube Name Collection Type:: Sanchez Catheter Result Comment: PERF ORMED BY: [facility] [address] [place] [address] PATHOLOGIST NETWORK DESIGNER RICHARD OLSEN M.D. Performed By: #### G LULS #### Point of Care testing , pH (U) 5.0 [pH] Normal 5.0-9.0 [facility] Comment on above: Order Comment: Comme nt please draw the sample from the tube Name Collection Type:: Sanchez Catheter Performed By: #### G LULS #### Point of Care testing , Protein,Urine Negative Normal Negative [facility] Comment on above: Order Comment: Comme nt please draw the sample from the tube Name Collection Type:: Sanchez Catheter Performed By: #### G LULS #### Point of Care testing , RBC,Urine 10-19 High 0-4 [facility] Comment on above: Order Comment: Comme nt please draw the sample from the tube Name Collection Type:: Sanchez Catheter Performed By: #### G LULS #### Point of Care testing , Specificy [place],Urine 1.013 Normal 1.001-1.030 [facility] Comment on above: Order Comment: Comme nt please draw the sample from the tube Name Collection Type:: Sanchez Catheter Performed By: #### G LULS #### Point of Care testing , Squamous Epithelial Cell,Urine 0-1 Normal 0-2 [facility] Comment on above: Order Comment: Comme nt please draw the sample from the tube Name Collection Type:: Sanchez Catheter Performed By: #### G LULS #### Point of Care testing , Urobilinogen,Urine Normal Normal Normal [facility] Comment on above: Order Comment: Comme nt please draw the sample from the tube Name Collection Type:: Sanchez Catheter Performed By: #### G LULS #### Point of Care testing , WBC,Urine 5-9 High 0-4 [facility] Comment on above: Order Comment: Comme nt please draw the sample from the tube Name Collection Type:: Sanchez Catheter Performed By: #### G LULS #### Point of Care testing , Yeast,Urine 3+ Critically abnormal None Seen [facility] Comment on above: Order Comment: Comme nt please draw the sample from the tube Name Collection Type:: Sanchez Catheter Result Comment: PERF ORMED BY: [facility] [address] [place] [address] PATHOLOGIST NETWORK DESIGNER RICHARD OLSEN M.D. Performed By: #### G LULS #### Point of Care testing , Glucose Poct Glucometerson 0 01-13-2023 Glucose [Mass/Vol] 156 mg/dL Normal [facility] Comment on above: Result Comment: [facility] Glucose Reference Range is dependent on time and content of last meal. Glucose of more than 200 mg/dL in a nonstressed, ambulatory subject supports the diagnosis of Diabetes Mellitus. PERFORMED BY: [place] [phone] PATHOLOGIST NETWORK DESIGNER RICHARD OLSEN M.D. Performed By: #### U WILLIE, REHAN #### [address] Commemt1 Glu2: Cleaned Meter [facility] Comment on above: Result Comment: PERF ORMED BY: [place] [phone] PATHOLOGIST NETWORK DESIGNER RICHARD OLSEN M.D. Performed By: #### G LULS #### Point of Care testing , Glucose [Mass/Vol] 81 mg/dL Normal [facility] Comment on above: Result Comment: [facility] Glucose Reference Range is dependent on time and content of last meal. Glucose of more than 200 mg/dL in a nonstressed, ambulatory subject supports the diagnosis of Diabetes Mellitus. Performed By: #### G LULS #### Point of Care testing , Commemt1 Glu2: Cleaned Meter [facility] Comment on above: Result Comment: PERF ORMED BY: [place] [phone] PATHOLOGIST NETWORK DESIGNER RICHARD OLSEN M.D. Performed By: #### G LULS #### Point of Care testing , Glucose [Mass/Vol] 64 mg/dL Normal [facility] Comment on above: Result Comment: [facility] Glucose Reference Range is dependent on time and content of last meal. Glucose of more than 200 mg/dL in a nonstressed, ambulatory subject supports the diagnosis of Diabetes Mellitus. Performed By: #### G LULS #### Point of Care testing , Commemt1 Glu2: Cleaned Meter [facility] Comment on above: Result Comment: PERF ORMED BY: [place] [address] PATHOLOGIST NETWORK DESIGNER RICHARD OLSEN M.D. Performed By: #### G LULS #### Point of Care testing , Glucose [Mass/Vol] 117 mg/dL Normal [facility] Comment on above: Result Comment: [facility] Glucose Reference Range is dependent on time and content of last meal. Glucose of more than 200 mg/dL in a nonstressed, ambulatory subject supports the diagnosis of Diabetes Mellitus. Performed By: #### G LULS #### Point of Care testing , Glucose [Mass/Vol] 107 mg/dL Normal [facility] Comment on above: Result Comment: [facility] Glucose Reference Range is dependent on time and content of last meal. Glucose of more than 200 mg/dL in a nonstressed, ambulatory subject supports the diagnosis of Diabetes Mellitus. PERFORMED BY: [facility] [address] [place] [address] PATHOLOGIST NETWORK DESIGNER RICHARD OLSEN M.D. Performed By: #### G LULS #### Point of Care testing , Renal Function Panelon 01-13 Albumin [Mass/Vol] 3.2 g/dL Low 3.5-5.7 [facility] Comment on above: Performed By: #### G LULS #### Point of Care testing , Anion gap [Moles/Vol] 11.4 mmol/L Normal 6.0-15.0 [facility] Comment on above: Performed By: #### G LULS #### Point of Care testing , Calcium [Mass/Vol] 8.5 mg/dL Low 8.6-10.3 [facility] Comment on above: Performed By: #### G LULS #### Point of Care testing , Chloride [Moles/Vol] 103 mmol/L Normal 98-107 [facility] Comment on above: Performed By: #### G LULS #### Point of Care testing , CO2 [Moles/Vol] 26.7 mmol/L Normal 21.0-31.0 [facility] Comment on above: Performed By: #### G LULS #### Point of Care testing , Creatinine [Mass/Vol] 2.40 mg/dL High 0.70-1.[address] [facility] Comment on above: Performed By: #### G LULS #### Point of Care testing , Creatinine Clr Calc Pharmacy 70.56 Normal [facility] Comment on above: Result Comment: PERF ORMED BY: [facility] [address] [place] [address] PATHOLOGIST NETWORK DESIGNER RICHARD OLSEN M.D. Performed By: #### G LULS #### Point of Care testing , GFR/1.73 sq M.predicted MDRD (S/P/Bld) [Vol rate/Area] 30.322 mL/min/{1.73_m2} Normal [facility] Comment on above: Performed By: #### G LULS #### Point of Care testing , Glucose [Mass/Vol] 105 mg/dL High 70-100 [facility] Comment on above: Result Comment: [facility] Glucose Reference Range is dependent on time and content of last meal. Glucose of more than 200 mg/dL in a nonstressed, ambulatory subject supports the diagnosis of Diabetes Mellitus. ADA recommended reference range Performed By: #### G LULS #### Point of Care testing , Phosphate [Mass/Vol] 5.1 mg/dL Normal 3.7-7.2 [facility] Comment on above: Performed By: #### G LULS #### Point of Care testing , Potassium [Moles/Vol] 5.1 mmol/L Normal 3.5-5.[address] [facility] Comment on above: Performed By: #### G LULS #### Point of Care testing , Sodium [Moles/Vol] 136 mmol/L Normal 136-145 [facility] Comment on above: Performed By: #### G LULS #### Point of Care testing , Urea nitrogen [Mass/Vol] 52 mg/dL High 7-25 [facility] Comment on above: Performed By: #### G LULS #### Point of Care testing , Sodium, Urine (Random)on Sodium (U) [Moles/Vol] 83 mmol/L Normal [facility] Comment on above: Result Comment: No r eference range established PERFORMED BY: [place] [address] PATHOLOGIST NETWORK DESIGNER RICHARD OLSEN M.D. Performed By: #### U CREA, REHAN #### [facility] [address] [place] [address] Urine Cultureon 01-13-2023 Bacteria identified Cx Nom (U) No Growth 2 Days PERFORMED BY: [place] [address] PATHOLOGIST NETWORK DESIGNER RICHARD OLSEN M.D. [facility] Comment on above: Performed By: #### G LULS #### Point of Care testing , Glucose Poct Glucometerson 0 01-12-2023 Glucose [Mass/Vol] 133 mg/dL Normal [facility] Comment on above: Result Comment: [facility] Glucose Reference Range is dependent on time and content of last meal. Glucose of more than 200 mg/dL in a nonstressed, ambulatory subject supports the diagnosis of Diabetes Mellitus. PERFORMED BY: [place] [address] PATHOLOGIST NETWORK DESIGNER RICHARD OLSEN M.D. Performed By: #### G LULS #### Point of Care testing , Glucose [Mass/Vol] 116 mg/dL Normal [facility] Comment on above: Result Comment: [facility] Glucose Reference Range is dependent on time and content of last meal. Glucose of more than 200 mg/dL in a nonstressed, ambulatory subject supports the diagnosis of Diabetes Mellitus. PERFORMED BY: [place] [address] PATHOLOGIST NETWORK DESIGNER RICHARD OLSEN M.D. Performed By: #### U CREA, REHAN #### [facility] [address] [place] [address] Commemt1 Glu2: Cleaned Meter [facility] Comment on above: Result Comment: PERF ORMED BY: [place] [address] PATHOLOGIST NETWORK DESIGNER RICHARD OLSEN M.D. Performed By: #### U CREA, REHAN #### [address] Glucose [Mass/Vol] 145 mg/dL Normal [facility] Comment on above: Result Comment: [place] Glucose Reference Range is dependent on time and content of last meal. Glucose of more than 200 mg/dL in a nonstressed, ambulatory subject supports the diagnosis of Diabetes Mellitus. Performed By: #### U CREJuan, REHAN #### [address] Glucose [Mass/Vol] 121 mg/dL Normal [facility] Comment on above: Result Comment: [place] [facility] Glucose Reference Range is dependent on time and content of last meal. Glucose of more than 200 mg/dL in a nonstressed, ambulatory subject supports the diagnosis of Diabetes Mellitus. PERFORMED BY: [place] [address] PATHOLOGIST NETWORK DESIGNER RICHARD OLSEN M.D. Performed By: #### U WILLIE, REHAN #### [address] Renal Function Panelon 01-12 Albumin [Mass/Vol] 3.2 g/dL Low 3.5-5.7 [facility] Comment on above: Performed By: #### G LULS #### Point of Care testing , Anion gap [Moles/Vol] 9.7 mmol/L Normal 6.0-15.[address] [facility] Comment on above: Performed By: #### G LULS #### Point of Care testing , Calcium [Mass/Vol] 8.6 mg/dL Normal 8.6-10.3 [facility] Comment on above: Performed By: #### G LULS #### Point of Care testing , Chloride [Moles/Vol] 102 mmol/L Normal 98-107 [facility] Comment on above: Performed By: #### G LULS #### Point of Care testing , CO2 [Moles/Vol] 29.6 mmol/L Normal 21.0-31.0 [facility] Comment on above: Performed By: #### G LULS #### Point of Care testing , Creatinine [Mass/Vol] 2.31 mg/dL High 0.70-1.[address] [facility] Comment on above: Performed By: #### G LULS #### Point of Care testing , Creatinine Clr Calc Pharmacy 73.31 [facility] Comment on above: Result Comment: PERF ORMED BY: [facility] [place] [address] PATHOLOGIST NETWORK DESIGNER RICHARD OLSEN M.D. Performed By: #### G LULS #### Point of Care testing , GFR/1.73 sq M.predicted MDRD (S/P/Bld) [Vol rate/Area] 31.746 mL/min/{1.73_m2} [facility] Comment on above: Performed By: #### G LULS #### Point of Care testing , Glucose [Mass/Vol] 112 mg/dL High 70-100 [facility] Comment on above: Result Comment: [place] Glucose Reference Range is dependent on time and content of last meal. Glucose of more than 200 mg/dL in a nonstressed, ambulatory subject supports the diagnosis of Diabetes Mellitus. ADA recommended reference range Performed By: #### G JAGRUTILS #### Point of Care testing , Phosphate [Mass/Vol] 5.7 mg/dL Normal 3.7-7.2 [facility] Comment on above: Performed By: #### G JAGRUTILS #### Point of Care testing , Potassium [Moles/Vol] 5.3 mmol/L High 3.5-5.[address] [facility] Comment on above: Performed By: #### G JAGRUTILS #### Point of Care testing , Sodium [Moles/Vol] 136 mmol/L Normal 136-145 [facility] Comment on above: Performed By: #### G JAGRUTILS #### Point of Care testing , Urea nitrogen [Mass/Vol] 52 mg/dL High 7-25 [facility] Comment on above: Performed By: #### G JAGRUTILS #### Point of Care testing , Glucose Poct Glucometerson 0 01-11-2023 Glucose [Mass/Vol] 288 mg/dL Normal [facility] Comment on above: Result Comment: [place] [facility] Glucose Reference Range is dependent on time and content of last meal. Glucose of more than 200 mg/dL in a nonstressed, ambulatory subject supports the diagnosis of Diabetes Mellitus. PERFORMED BY: [place] [address] PATHOLOGIST NETWORK DESIGNER RICHARD OLSEN M.D. Performed By: #### G DAVID #### Point of Care testing , Commemt1 Glu2: Cleaned Meter Normal [facility] Comment on above: Result Comment: PERF ORMED BY: [place] [address] PATHOLOGIST NETWORK DESIGNER RICHARD OLSEN M.D. Performed By: #### U CREA, REHAN #### [facility] [address] [place] [address] [place] Glucose [Mass/Vol] 143 mg/dL Normal [facility] Comment on above: Result Comment: [place] Glucose Reference Range is dependent on time and content of last meal. Glucose of more than 200 mg/dL in a nonstressed, ambulatory subject supports the diagnosis of Diabetes Mellitus. Performed By: #### U CREA, REHAN #### [facility] [address] [place] [address] Glucose [Mass/Vol] 183 mg/dL Normal [facility] Comment on above: Result Comment: [place] Glucose Reference Range is dependent on time and content of last meal. Glucose of more than 200 mg/dL in a nonstressed, ambulatory subject supports the diagnosis of Diabetes Mellitus. PERFORMED BY: [place] [address] PATHOLOGIST NETWORK DESIGNER RICHARD OLSEN M.D. Performed By: #### U CREA, REHAN #### [facility] [address] [place] [address] [place] Glucose [Mass/Vol] 107 mg/dL Normal [facility] Comment on above: Result Comment: [place] Glucose Reference Range is dependent on time and content of last meal. Glucose of more than 200 mg/dL in a nonstressed, ambulatory subject supports the diagnosis of Diabetes Mellitus. PERFORMED BY: [facility] [address] [place] [address] PATHOLOGIST NETWORK DESIGNER RICHARD OLSEN M.D. Performed By: #### G JAGRUTILS #### Point of Care testing , Renal Function Panelon 01-11 Albumin [Mass/Vol] 3.2 g/dL Low 3.5-5.7 [facility] Comment on above: Order Comment: LINE DRAW Performed By: #### G LULS #### Point of Care testing , Anion gap [Moles/Vol] 9.1 mmol/L Normal 6.0-15.[address] [facility] Comment on above: Order Comment: LINE DRAW Performed By: #### G LULS #### Point of Care testing , Calcium [Mass/Vol] 8.3 mg/dL Low 8.6-10.3 [facility] Comment on above: Order Comment: LINE DRAW Performed By: #### G LULS #### Point of Care testing , Chloride [Moles/Vol] 101 mmol/L Normal 98-107 [facility] Comment on above: Order Comment: LINE DRAW Performed By: #### G LULS #### Point of Care testing , CO2 [Moles/Vol] 29.0 mmol/L Normal 21.0-31.0 [facility] Comment on above: Order Comment: LINE DRAW Performed By: #### G LULS #### Point of Care testing , Creatinine [Mass/Vol] 2.16 mg/dL High 0.70-1.[address] [facility] Comment on above: Order Comment: LINE DRAW Performed By: #### G LULS #### Point of Care testing , Creatinine Clr Calc Pharmacy 78.25 Normal [facility] Comment on above: Order Comment: LINE DRAW Result Comment: PERF ORMED BY: [facility] [address] [place] [address] PATHOLOGIST NETWORK DESIGNER RICHARD OLSEN M.D. Performed By: #### G LULS #### Point of Care testing , GFR/1.73 sq M.predicted MDRD (S/P/Bld) [Vol rate/Area] 34.409 mL/min/{1.73_m2} Normal [facility] Comment on above: Order Comment: LINE DRAW Performed By: #### G JAGRUTILS #### Point of Care testing , Glucose [Mass/Vol] 163 mg/dL High 70-100 [facility] Comment on above: Order Comment: LINE DRAW Result Comment: [facility] Glucose Reference Range is dependent on time and content of last meal. Glucose of more than 200 mg/dL in a nonstressed, ambulatory subject supports the diagnosis of Diabetes Mellitus. ADA recommended reference range Performed By: #### G LULS #### Point of Care testing , Phosphate [Mass/Vol] 5.1 mg/dL Normal 3.7-7.2 [facility] Comment on above: Order Comment: LINE DRAW Performed By: #### G LULS #### Point of Care testing , Potassium [Moles/Vol] 5.1 mmol/L Normal 3.5-5.[address] [facility] Comment on above: Order Comment: LINE DRAW Performed By: #### G LULS #### Point of Care testing , Sodium [Moles/Vol] 134 mmol/L Low 136-145 [facility] Comment on above: Order Comment: LINE DRAW Performed By: #### G LULS #### Point of Care testing , Urea nitrogen [Mass/Vol] 45 mg/dL High 7-25 [facility] Comment on above: Order Comment: LINE DRAW Performed By: #### G LULS #### Point of Care testing , Basic Metabolic Panelon 12-27 Anion gap [Moles/Vol] 9.9 mmol/L Normal 6.0-15.[address] [facility] Comment on above: Performed By: #### U CREA, REHAN #### [facility] [address] [place] [address] [place] Calcium [Mass/Vol] 8.4 mg/dL Low 8.6-10.3 [facility] Comment on above: Performed By: #### U CREA, REHAN #### [facility] [address] [place] [address] [place] Chloride [Moles/Vol] 101 mmol/L Normal 98-107 [facility] Comment on above: Performed By: #### U CREA, REHAN #### [facility] [address] CO2 [Moles/Vol] 29.0 mmol/L Normal 21.0-31.0 [facility] Comment on above: Performed By: #### U CREA, REHAN #### [facility] [address] Creatinine [Mass/Vol] 2.00 mg/dL High 0.70-1.[address] [facility] Comment on above: Performed By: #### U CREA, REHAN #### [address] Creatinine Clr Calc Pharmacy 84.51 [facility] Comment on above: Result Comment: PERF ORMED BY: [place] [address] PATHOLOGIST NETWORK DESIGNER RICHARD OLSEN M.D. Performed By: #### U CREA, REHAN #### [address] GFR/1.73 sq M.predicted MDRD (S/P/Bld) [Vol rate/Area] 37.738 mL/min/{1.73_m2} [facility] Comment on above: Performed By: #### U CREA, REHAN #### [facility] [address] [place] [address] Glucose [Mass/Vol] 136 mg/dL High 70-100 [facility] Comment on above: Result Comment: [place] Glucose Reference Range is dependent on time and content of last meal. Glucose of more than 200 mg/dL in a nonstressed, ambulatory subject supports the diagnosis of Diabetes Mellitus. ADA recommended reference range Performed By: #### U CREA, REHAN #### [address] Potassium [Moles/Vol] 4.9 mmol/L Normal 3.5-5.[address] [facility] Comment on above: Performed By: #### U CREA, REHAN #### [facility] [address] Sodium [Moles/Vol] 135 mmol/L Low 136-145 [facility] Comment on above: Performed By: #### U CREA, REHAN #### [facility] [address] Urea nitrogen [Mass/Vol] 42 mg/dL High 7-25 [facility] Comment on above: Performed By: #### U CREA, REHAN #### [facility] [address] Glucose Poct Glucometerson 0 01-10-2023 Glucose [Mass/Vol] 116 mg/dL Normal [facility] Comment on above: Result Comment: [place] [facility] Glucose Reference Range is dependent on time and content of last meal. Glucose of more than 200 mg/dL in a nonstressed, ambulatory subject supports the diagnosis of Diabetes Mellitus. PERFORMED BY: [place] [address] PATHOLOGIST NETWORK DESIGNER RICHARD OLSEN M.D. Performed By: #### G DAVID #### Point of Care testing , Commemt1 Glu2: Cleaned Meter [facility] Comment on above: Result Comment: PERF ORMED BY: [place] [address] PATHOLOGIST NETWORK DESIGNER RICHARD OLSEN M.D. Performed By: #### U CREA, REHAN #### [address] Glucose [Mass/Vol] 95 mg/dL Normal [facility] Comment on above: Result Comment: [place] [facility] Glucose Reference Range is dependent on time and content of last meal. Glucose of more than 200 mg/dL in a nonstressed, ambulatory subject supports the diagnosis of Diabetes Mellitus. Performed By: #### U CREA, REHAN #### [address] Commemt1 Glu2: Cleaned Meter [facility] Comment on above: Result Comment: PERF ORMED BY: [place] [address] PATHOLOGIST NETWORK DESIGNER RICHARD OLSEN M.D. Performed By: #### G LULS #### Point of Care testing , Glucose [Mass/Vol] 149 mg/dL Normal [facility] Comment on above: Result Comment: [place] [facility] Glucose Reference Range is dependent on time and content of last meal. Glucose of more than 200 mg/dL in a nonstressed, ambulatory subject supports the diagnosis of Diabetes Mellitus. Performed By: #### G LULS #### Point of Care testing , Glucose [Mass/Vol] 141 mg/dL Normal [facility] Comment on above: Result Comment: [place] Glucose Reference Range is dependent on time and content of last meal. Glucose of more than 200 mg/dL in a nonstressed, ambulatory subject supports the diagnosis of Diabetes Mellitus. PERFORMED BY: [place] [id number] PATHOLOGIST NETWORK DESIGNER RICHARD OLSEN M.D. Performed By: #### U WILLIE, REHAN #### [address] Hemogram CBC Without Diffon 01-10-2023 Erythrocyte distribution width (RBC) [Ratio] 18.6 % High 12.0-14.8 [facility] Comment on above: Order Comment: LINE DRAW Performed By: #### G LULS #### Point of Care testing , Hematocrit (Bld) [Volume fraction] 28.9 % Low 38.8-50.0 [facility] Comment on above: Order Comment: LINE DRAW Performed By: #### G LULS #### Point of Care testing , Hemoglobin (Bld) [Mass/Vol] 9.3 g/dL Low 13.0-17.0 [facility] Comment on above: Order Comment: LINE DRAW Performed By: #### G LULS #### Point of Care testing , MCH (RBC) [Entitic mass] 25.4 pg Low 27.5-35.2 [facility] Comment on above: Order Comment: LINE DRAW Performed By: #### G LULS #### Point of Care testing , MCV (RBC) [Entitic vol] 79.4 fL Low 83.5-101 [facility] Comment on above: Order Comment: LINE DRAW Performed By: #### G LULS #### Point of Care testing , Mean Corpuscular HGB Conc 32.0 g/dL Low 32.5-35.6 [facility] Comment on above: Order Comment: LINE DRAW Performed By: #### G LULS #### Point of Care testing , Platelet mean volume (Bld) [Entitic vol] 6.5 fL Low 6.6-10.1 [facility] Comment on above: Order Comment: LINE DRAW Result Comment: PERF ORMED BY: [facility] [address] [place] [address] PATHOLOGIST NETWORK DESIGNER RICHARD OLSEN M.D. Performed By: #### G LULS #### Point of Care testing , Platelets (Bld) [#/Vol] 291 10*3/uL Normal 150-450 [facility] Comment on above: Order Comment: LINE DRAW Performed By: #### G LULS #### Point of Care testing , RBC (Bld) [#/Vol] 3.64 10*6/uL Low 3.90-5.60 [facility] Comment on above: Order Comment: LINE DRAW Performed By: #### G LULS #### Point of Care testing , WBC (Bld) [#/Vol] 5.2 10*3/uL Normal 4.1-10.5 [facility] Comment on above: Order Comment: LINE DRAW Performed By: #### G LULS #### Point of Care testing , Basic Metabolic Panelon 12-27 Anion gap [Moles/Vol] 9.5 mmol/L Normal 6.0-15.[address] [facility] Comment on above: Performed By: #### U WILLIE, REHAN #### [facility] [address] Calcium [Mass/Vol] 8.3 mg/dL Low 8.6-10.3 [facility] Comment on above: Performed By: #### U CREA, REHAN #### [facility] [address] [place] [address] [place] Chloride [Moles/Vol] 102 mmol/L Normal 98-107 [facility] Comment on above: Performed By: #### U CREA, REHAN #### [facility] [address] [place] [address] [place] CO2 [Moles/Vol] 29.3 mmol/L Normal 21.0-31.0 [facility] Comment on above: Performed By: #### U CREA, REHAN #### [facility] [address] [place] [address] [place] Creatinine [Mass/Vol] 2.02 mg/dL High 0.70-1.[address] [facility] Comment on above: Performed By: #### U CREA, REHAN #### [facility] [address] [place] [address] [place] Creatinine Clr Calc Pharmacy 83.67 Normal [facility] Comment on above: Result Comment: PERF ORMED BY: [place] [address] PATHOLOGIST NETWORK DESIGNER RICHARD OLSEN M.D. Performed By: #### U CREA, REHAN #### [place] [address] [place] GFR/1.73 sq M.predicted MDRD (S/P/Bld) [Vol rate/Area] 37.291 mL/min/{1.73_m2} [facility] Comment on above: Performed By: #### U CREA, REHAN #### [facility] [address] [place] [address] [place] Glucose [Mass/Vol] 89 mg/dL Normal 70-100 [facility] Comment on above: Result Comment: [facility] Glucose Reference Range is dependent on time and content of last meal. Glucose of more than 200 mg/dL in a nonstressed, ambulatory subject supports the diagnosis of Diabetes Mellitus. ADA recommended reference range Performed By: #### U CREA, REHAN #### [facility] [address] [place] [address] [place] Potassium [Moles/Vol] 4.8 mmol/L Normal 3.5-5.[address] [facility] Comment on above: Performed By: #### U CREA, REHAN #### [facility] [address] [place] [address] [place] Sodium [Moles/Vol] 136 mmol/L Normal 136-145 [facility] Comment on above: Performed By: #### U CREA, REHAN #### [facility] [address] [place] [id number] [place] Urea nitrogen [Mass/Vol] 41 mg/dL High 7-25 [facility] Comment on above: Performed By: #### U CREA, REHAN #### [facility] [address] Glucose Poct Glucometerson 0 01-09-2023 Glucose [Mass/Vol] 110 mg/dL Normal [facility] Comment on above: Result Comment: [facility] Glucose Reference Range is dependent on time and content of last meal. Glucose of more than 200 mg/dL in a nonstressed, ambulatory subject supports the diagnosis of Diabetes Mellitus. PERFORMED BY: [place] [address] PATHOLOGIST NETWORK DESIGNER RICHARD OLSEN M.D. Performed By: #### U CREA, REHAN #### [facility] [address] [place] [address] [place] Glucose [Mass/Vol] 67 mg/dL Normal [facility] Comment on above: Result Comment: [facility] Glucose Reference Range is dependent on time and content of last meal. Glucose of more than 200 mg/dL in a nonstressed, ambulatory subject supports the diagnosis of Diabetes Mellitus. PERFORMED BY: [place] [address] PATHOLOGIST NETWORK DESIGNER RICHARD OLSEN M.D. Performed By: #### U CREA, REHAN #### [facility] [address] [place] [id number] [place] Glucose [Mass/Vol] 74 mg/dL Normal [facility] Comment on above: Result Comment: [place] Glucose Reference Range is dependent on time and content of last meal. Glucose of more than 200 mg/dL in a nonstressed, ambulatory subject supports the diagnosis of Diabetes Mellitus. PERFORMED BY: [place] [address] PATHOLOGIST NETWORK DESIGNER RICHARD OLSEN M.D. Performed By: #### U CREA, REHAN #### [address] Commemt1 Glu2: Cleaned Meter [facility] Comment on above: Result Comment: PERF ORMED BY: [place] [address] PATHOLOGIST NETWORK DESIGNER RICHARD OLSEN M.D. Performed By: #### U CREA, REHAN #### [address] Glucose [Mass/Vol] 92 mg/dL Normal [facility] Comment on above: Result Comment: [place] Glucose Reference Range is dependent on time and content of last meal. Glucose of more than 200 mg/dL in a nonstressed, ambulatory subject supports the diagnosis of Diabetes Mellitus. Performed By: #### U CREA, REHAN #### [address] Commemt1 Glu2: Cleaned Meter [facility] Comment on above: Result Comment: PERF ORMED BY: [place] [address] PATHOLOGIST NETWORK DESIGNER RICHARD OLSEN M.D. Performed By: #### U CREA, REHAN #### [address] Glucose [Mass/Vol] 94 mg/dL Normal [facility] Comment on above: Result Comment: [place] Glucose Reference Range is dependent on time and content of last meal. Glucose of more than 200 mg/dL in a nonstressed, ambulatory subject supports the diagnosis of Diabetes Mellitus. Performed By: #### U CREA, REHAN #### [address] Basic Metabolic Panelon 12-27 Anion gap [Moles/Vol] 9.8 mmol/L Normal 6.0-15.[address] [facility] Comment on above: Performed By: #### G JAGRUTILS #### Point of Care testing , Calcium [Mass/Vol] 8.2 mg/dL Significant c hange down 8.6-10.3 [facility] Comment on above: Performed By: #### G JAGRUTILS #### Point of Care testing , Chloride [Moles/Vol] 97 mmol/L Low 98-107 [facility] Comment on above: Performed By: #### G JAGRUTILS #### Point of Care testing , CO2 [Moles/Vol] 30.6 mmol/L Normal 21.0-31.0 [facility] Comment on above: Performed By: #### G JAGRUTILS #### Point of Care testing , Creatinine [Mass/Vol] 2.41 mg/dL High 0.70-1.[address] [facility] Comment on above: Performed By: #### G JAGRUTILS #### Point of Care testing , Creatinine Clr Calc Pharmacy 70.13 [facility] Comment on above: Performed By: #### G JAGRUTILS #### Point of Care testing , GFR/1.73 sq M.predicted MDRD (S/P/Bld) [Vol rate/Area] 30.172 mL/min/{1.73_m2} [facility] Comment on above: Performed By: #### G JAGRUTILS #### Point of Care testing , Glucose [Mass/Vol] 122 mg/dL Significant c hange up 70-100 [facility] Comment on above: Result Comment: [facility] Glucose Reference Range is dependent on time and content of last meal. Glucose of more than 200 mg/dL in a nonstressed, ambulatory subject supports the diagnosis of Diabetes Mellitus. ADA recommended reference range Performed By: #### G JAGRUTILS #### Point of Care testing , Potassium [Moles/Vol] 4.4 mmol/L Normal 3.5-5.[address] [facility] Comment on above: Performed By: #### G JAGRUTILS #### Point of Care testing , Sodium [Moles/Vol] 133 mmol/L Low 136-145 [facility] Comment on above: Performed By: #### G LULS #### Point of Care testing , Urea nitrogen [Mass/Vol] 47 mg/dL High 7-25 [facility] Comment on above: Performed By: #### G LULS #### Point of Care testing , Glucose Poct Glucometerson 0 01-08-2023 Glucose [Mass/Vol] 117 mg/dL Normal [facility] Comment on above: Result Comment: [facility] Glucose Reference Range is dependent on time and content of last meal. Glucose of more than 200 mg/dL in a nonstressed, ambulatory subject supports the diagnosis of Diabetes Mellitus. PERFORMED BY: [place] [address] PATHOLOGIST NETWORK DESIGNER RICHARD OLSEN M.D. Performed By: #### G LULS #### Point of Care testing , Glucose [Mass/Vol] 84 mg/dL Normal [facility] Comment on above: Result Comment: [facility] Glucose Reference Range is dependent on time and content of last meal. Glucose of more than 200 mg/dL in a nonstressed, ambulatory subject supports the diagnosis of Diabetes Mellitus. PERFORMED BY: [place] [address] PATHOLOGIST NETWORK DESIGNER RICHARD OLSEN M.D. Performed By: #### G LULS #### Point of Care testing , Glucose [Mass/Vol] 71 mg/dL Normal [facility] Comment on above: Result Comment: [facility] Glucose Reference Range is dependent on time and content of last meal. Glucose of more than 200 mg/dL in a nonstressed, ambulatory subject supports the diagnosis of Diabetes Mellitus. PERFORMED BY: [place] [address] PATHOLOGIST NETWORK DESIGNER RICHARD OLSEN M.D. Performed By: #### U WILLIE, REHAN #### [address] Glucose [Mass/Vol] 134 mg/dL Normal [facility] Comment on above: Result Comment: [facility] Glucose Reference Range is dependent on time and content of last meal. Glucose of more than 200 mg/dL in a nonstressed, ambulatory subject supports the diagnosis of Diabetes Mellitus. PERFORMED BY: [place] [address] PATHOLOGIST NETWORK DESIGNER RICHARD OLSEN M.D. Performed By: #### G LULS #### Point of Care testing , Glucose [Mass/Vol] 113 mg/dL Normal [facility] Comment on above: Result Comment: [facility] Glucose Reference Range is dependent on time and content of last meal. Glucose of more than 200 mg/dL in a nonstressed, ambulatory subject supports the diagnosis of Diabetes Mellitus. PERFORMED BY: [place] [address] PATHOLOGIST NETWORK DESIGNER RICHARD OLSEN M.D. Performed By: #### U WILLIE, REHAN #### [address] Glucose [Mass/Vol] 140 mg/dL Normal [facility] Comment on above: Result Comment: [place] Glucose Reference Range is dependent on time and content of last meal. Glucose of more than 200 mg/dL in a nonstressed, ambulatory subject supports the diagnosis of Diabetes Mellitus. PERFORMED BY: [place] [id number] PATHOLOGIST NETWORK DESIGNER RICHARD OLSEN M.D. Performed By: #### G LULS #### Point of Care testing , Vitamin D 25 Hydroxy Totalon 01-08-2023 Vitamin D 25 Hydroxy Total 14.3 ng/mL Low 30-100 [facility] Comment on above: Result Comment: ANTOLIN MIN D STATUS 25(OH)VITAMIN D RANGE (ng/mL) Deficient <20 Insufficient 20 to <30 Sufficient 30 to 100 Reference: Arielle MF,Bella HANSEN, Neptali GOODRICH, et al. Evaluation,treatment, and prevention of vitamin D deficiency; an Endocrine Society clinical practice guideline. JCEM. 2010; 96(7):1911-30. PERFORMED BY: [place] [id number] PATHOLOGIST NETWORK DESIGNER RICHARD OLSEN M.D. Performed By: #### G LULS #### Point of Care testing , Basic Metabolic Panelon 12-27 Anion gap [Moles/Vol] 11.5 mmol/L Normal 6.0-15.0 [facility] Comment on above: Performed By: #### U CREA, REHAN #### [facility] [address] [place] [address] [place] Calcium [Mass/Vol] 6.7 mg/dL Significant c hange down 8.6-10.3 [facility] Comment on above: Performed By: #### U CREA, REHAN #### [facility] [address] Chloride [Moles/Vol] 93 mmol/L Low 98-107 [facility] Comment on above: Performed By: #### U CREA, REHAN #### [facility] [address] CO2 [Moles/Vol] 31.1 mmol/L High 21.0-31.0 [facility] Comment on above: Performed By: #### U CREA, REHAN #### [facility] [address] [place] [address] [place] Creatinine [Mass/Vol] 2.64 mg/dL Significan t change up 0.70-1.30 [facility] Comment on above: Performed By: #### U CREA, REHAN #### [facility] [address] [place] [address] [place] Creatinine Clr Calc Pharmacy 64.02 [facility] Comment on above: Result Comment: PERF ORMED BY: [place] [address] PATHOLOGIST NETWORK DESIGNER RICHARD OLSEN M.D. Performed By: #### U CREA, REHAN #### [facility] [address] [place] [address] [place] GFR/1.73 sq M.predicted MDRD (S/P/Bld) [Vol rate/Area] 27.045 mL/min/{1.73_m2} [facility] Comment on above: Performed By: #### U CREA, REHAN #### [facility] [address] [place] [address] [place] Glucose [Mass/Vol] 253 mg/dL High 70-100 [facility] Comment on above: Result Comment: [facility] Glucose Reference Range is dependent on time and content of last meal. Glucose of more than 200 mg/dL in a nonstressed, ambulatory subject supports the diagnosis of Diabetes Mellitus. ADA recommended reference range Performed By: #### U CREA, REHAN #### [facility] [address] Potassium [Moles/Vol] 5.6 mmol/L High 3.5-5.[address] [facility] Comment on above: Performed By: #### U CREA, REHAN #### [address] Sodium [Moles/Vol] 130 mmol/L Low 136-145 [facility] Comment on above: Performed By: #### U CREA, REHAN #### [place] [address] [place] Urea nitrogen [Mass/Vol] 48 mg/dL High 7-25 [facility] Comment on above: Performed By: #### U CREA, REHAN #### [address] Complete Blood Count Auto Di ffon 01-07-2023 Basophils (Bld) [#/Vol] 0.1 10*3/uL Normal 0.0-0.2 [facility] Comment on above: Result Comment: PERF ORMED BY: [place] [address] PATHOLOGIST NETWORK DESIGNER RICHARD OLSEN M.D. Performed By: #### U CREA, REHAN #### [place] [address] [place] Basophils/100 WBC (Bld) 1.2 % Normal . [facility] Comment on above: Performed By: #### U CREA, REHAN #### [place] [address] [place] Eosinophils (Bld) [#/Vol] 0.1 10*3/uL Normal 0.0-0.45 [facility] Comment on above: Performed By: #### U CREA, REHAN #### [address] Eosinophils/100 WBC (Bld) 2.1 % Normal . [facility] Comment on above: Performed By: #### U CREA, REHAN #### [address] Erythrocyte distribution width (RBC) [Ratio] 18.2 % High 12.0-14.8 [facility] Comment on above: Performed By: #### U CREA, REHAN #### [address] Hematocrit (Bld) [Volume fraction] 27.8 % Low 38.8-50.0 [facility] Comment on above: Performed By: #### U CREA, REHAN #### [address] Hemoglobin (Bld) [Mass/Vol] 9.0 g/dL Low 13.0-17.0 [facility] Comment on above: Performed By: #### U CREA, REHAN #### [address] Lymphocytes (Bld) [#/Vol] 0.7 10*3/uL Low 1.00-4.8 [facility] Comment on above: Performed By: #### U CREA, REHAN #### [address] Lymphocytes/100 WBC (Bld) 11.5 % Normal . [facility] Comment on above: Performed By: #### U CREA, REHAN #### [address] MCH (RBC) [Entitic mass] 25.4 pg Low 27.5-35.2 [facility] Comment on above: Performed By: #### U CREA, REHAN #### [place] [address] [place] MCV (RBC) [Entitic vol] 78.1 fL Low 83.5-101 [facility] Comment on above: Performed By: #### U CREA, REHAN #### [facility] [address] Mean Corpuscular HGB Conc 32.5 g/dL Normal 32.5-35.6 [facility] Comment on above: Performed By: #### U CREA, REHAN #### [facility] [address] Monocytes (Bld) [#/Vol] 0.4 10*3/uL Normal 0.0-0.8 [facility] Comment on above: Performed By: #### U CREA, REHAN #### [address] Monocytes/100 WBC (Bld) 6.6 % Normal . [facility] Comment on above: Performed By: #### U CREA, REHAN #### [address] Neutrophils (Bld) [#/Vol] 4.7 10*3/uL Normal 1.8-7.7 [facility] Comment on above: Performed By: #### U CREA, REHAN #### [address] Neutrophils/100 WBC (Bld) 78.6 % Normal . [facility] Comment on above: Performed By: #### U CREA, REHAN #### [address] NRBC% 0.1 /100{WBC} Normal 0-0.5 [facility] Comment on above: Performed By: #### U CREA, REHAN #### [facility] [address] Platelet mean volume (Bld) [Entitic vol] 6.5 fL Low 6.6-10.1 [facility] Comment on above: Performed By: #### U CREA, REHAN #### [address] Platelets (Bld) [#/Vol] 277 10*3/uL Normal 150-450 [facility] Comment on above: Performed By: #### U CREA, REHAN #### [facility] [address] RBC (Bld) [#/Vol] 3.56 10*6/uL Low 3.90-5.60 [facility] Comment on above: Performed By: #### U CREA, REHAN #### [facility] [address] WBC (Bld) [#/Vol] 6.0 10*3/uL Normal 4.1-10.5 [facility] Comment on above: Performed By: #### U CREJuan, REHAN #### [address] ECG 12 lead ECGon 01-07-2023 ECG 12 lead ECG [facility] [place] [address] [place] [address] Electrocardiograph Report Signed Patient: Toribio Meza MR#: [id number] 52 : 1965 Acct:[id number] Age/Sex: 57 / M ADM Date: 01/02/23 Loc: Room: [address] [place] [address] Type: ADM IN Attending Dr: Chucho Fitzpatrick MD Ordering Provider: Angelica Castañeda APRN Date of Service: 01/07/2305/20/1226 ECG/ECG 12 lead ECG: hyperklamia Copies to: Test Reason : Blood Pressure : / mmHG Vent. Rate : 083 BPM Atrial Rate : 083 BPM P-R Int : 178 ms QRS Dur : 110 ms QT Int : 410 ms P-R-T Axes : 053 027 064 degrees QTc Int : 481 ms Normal sinus rhythm Prolonged QT Abnormal ECG When compared with ECG of 04-JAN-2023 07:33, No significant change was found Confirmed by ROHIT CHAVEZ FACCCÉSAR ([id number]) on 01/07/2023 2:31:08 PM Referred By: Electronically Signed By:CÉSAR BEE MD FACC Transcribed By: MUS Signed By César Bee MD, [facility] 01/07/23 1431 Normal [facility] Glucose Poct Glucometerson 0 01-07-2023 Glucose [Mass/Vol] 215 mg/dL Normal [facility] Comment on above: Result Comment: [facility] Glucose Reference Range is dependent on time and content of last meal. Glucose of more than 200 mg/dL in a nonstressed, ambulatory subject supports the diagnosis of Diabetes Mellitus. PERFORMED BY: [place] [phone] PATHOLOGIST NETWORK DESIGNER RICHARD OLSEN M.D. Performed By: #### G LULS #### Point of Care testing , Glucose [Mass/Vol] 152 mg/dL Normal [facility] Comment on above: Result Comment: [facility] Glucose Reference Range is dependent on time and content of last meal. Glucose of more than 200 mg/dL in a nonstressed, ambulatory subject supports the diagnosis of Diabetes Mellitus. PERFORMED BY: [address] [place] [phone] PATHOLOGIST NETWORK DESIGNER RICHARD OLSEN M.D. Performed By: #### U CREA, REHAN #### [facility] [address] [place] [address] Glucose [Mass/Vol] 291 mg/dL Normal [facility] Comment on above: Result Comment: [facility] Glucose Reference Range is dependent on time and content of last meal. Glucose of more than 200 mg/dL in a nonstressed, ambulatory subject supports the diagnosis of Diabetes Mellitus. PERFORMED BY: [place] [address] PATHOLOGIST NETWORK DESIGNER RICHARD OLSEN M.D. Performed By: #### U CREA, REHAN #### [facility] [address] [place] [address] Glucose [Mass/Vol] 171 mg/dL Normal [facility] Comment on above: Result Comment: [facility] Glucose Reference Range is dependent on time and content of last meal. Glucose of more than 200 mg/dL in a nonstressed, ambulatory subject supports the diagnosis of Diabetes Mellitus. PERFORMED BY: [place] [address] PATHOLOGIST NETWORK DESIGNER RICHARD OLSEN M.D. Performed By: #### G LULS #### Point of Care testing , Potassiumon 01-07-2023 Potassium [Moles/Vol] 4.4 mmol/L Normal 3.5-5.[address] [facility] Comment on above: Order Comment: LINE DRAW Result Comment: PERF ORMED BY: [place] [address] PATHOLOGIST NETWORK DESIGNER RICHARD OLSEN M.D. Performed By: #### U CREA, REHAN #### [address] US renal BIon 01-07-2023 US renal BI [facility] [place] [address] [place] [address] Ultrasound Report Signed Patient: Toribio Meza MR#: [id number] 52 : 1965 Acct:[id number] Age/Sex: 57 / M ADM Date: 01/02/23 Loc: Room: [address] [place] [address] Type: ADM IN Attending Dr: Chucho Fitzpatrick MD Ordering Provider: Angelica Castañeda APRN Date of Service: 01/07/23 US/US renal BI: layla Copies to: MD Angelica Garcia APRN BILATERAL RENAL AND BLADDER ULTRASOUND CLINICAL HISTORY: Acute kidney injury COMPARISON: None Evaluation is slightly limited by large body habitus. Estimation of renal size is approximately 10.0 cm on the right and 9.9 cm on the left. No obvious shadowing calculi or hydronephrosis are identified. No renal mass lesions were imaged. There is no perinephric fluid. The urinary bladder contains a Sanchez catheter and is not adequately distended for assessment. US/US renal BI IMPRESSION: NO OBSTRUCTIVE UROPATHY. Impression dictated by: Page Wren M.D.01/07/2023 4:30 PM Dictation Location: [place] [address] Tech: Aarti Redding Transcribed By: AVIS 01/07/23 1630 Dictated By: Page Wren MD 01/07/23 1629 Signed By: 01/07/23 1630 [facility] Aerobic Cultureon 01-06-2023 Aerobic Culture Comment Proximal Intramedullary Canal No Growth 2 Days Comment Proximal Intramedullary Canal No Anaerobes Isolated 3 Days Comment Proximal Intramedullary Canal Gram Stain Result 2+ White Blood Cells No Bacteria Seen PERFORMED BY: [place] [address] PATHOLOGIST NETWORK DESIGNER RICHARD OLSEN M.D. [facility] Comment on above: Performed By: #### G LULS #### Point of Care testing , Basic Metabolic Panelon 12-27 Anion gap [Moles/Vol] 10.7 mmol/L Normal 6.0-15.0 [facility] Comment on above: Performed By: #### U CREA, REHAN #### [facility] [address] [place] [address] [place] Calcium [Mass/Vol] 8.8 mg/dL Normal 8.6-10.3 [facility] Comment on above: Performed By: #### U CREA, REHAN #### [facility] [address] [place] [address] [place] Chloride [Moles/Vol] 96 mmol/L Low 98-107 [facility] Comment on above: Performed By: #### U CREA, REHAN #### [facility] [address] [place] [id number] [place] CO2 [Moles/Vol] 31.8 mmol/L High 21.0-31.0 [facility] Comment on above: Performed By: #### U CREA, REHAN #### [facility] [address] [place] [id number] [place] Creatinine [Mass/Vol] 1.93 mg/dL High 0.70-1.[address] [facility] Comment on above: Performed By: #### U CREA, REHAN #### [facility] [address] [place] [id number] [place] Creatinine Clr Calc Pharmacy 87.27 [facility] Comment on above: Result Comment: PERF ORMED BY: [facility] [address] [place] [address] PATHOLOGIST NETWORK DESIGNER RICHARD OLSEN M.D. Performed By: #### U CREA, REHAN #### [place] [address] [place] GFR/1.73 sq M.predicted MDRD (S/P/Bld) [Vol rate/Area] 39.386 mL/min/{1.73_m2} [facility] Comment on above: Performed By: #### U CREA, REHAN #### [address] Glucose [Mass/Vol] 163 mg/dL High 70-100 [facility] Comment on above: Result Comment: [facility] Glucose Reference Range is dependent on time and content of last meal. Glucose of more than 200 mg/dL in a nonstressed, ambulatory subject supports the diagnosis of Diabetes Mellitus. ADA recommended reference range Performed By: #### U CREA, REHAN #### [address] Potassium [Moles/Vol] 4.5 mmol/L Normal 3.5-5.[address] [facility] Comment on above: Performed By: #### U CREA, REHAN #### [address] Sodium [Moles/Vol] 134 mmol/L Low 136-145 [facility] Comment on above: Performed By: #### U CREA, REHAN #### [address] Urea nitrogen [Mass/Vol] 41 mg/dL High 7-25 [facility] Comment on above: Performed By: #### U CREA, REHAN #### [address] Coagulation Profileon 2022 aPTT Coag (Bld) [Time] 37.2 s High 25.1-36.5 [facility] Comment on above: Result Comment: PERF ORMED BY: [place] [address] PATHOLOGIST NETWORK DESIGNER RICHARD OLSEN M.D. Performed By: #### U CREA, REHAN #### [address] INR Coag (PPP) [Relative time] 1.2 {INR} Normal [facility] Comment on above: Result Comment: INR Therapeutic Range A) Pre- and Peroperative OAT started two weeks before surgery. NOT HIP SURGERY: 1.5 - 2.5 HIP SURGERY: 2 - 3 B) Primary and secondary prevention of venous THROMBOSIS: 2 - 3 C) Active venous thrombosis, pulmonary embolism and prevention of recurrent venous thrombosis: 2 - 3 D) Prevention of arterial thromboembolism including patients with mechanical heart valves: 3 - 4.5 Performed By: #### U CREA, REHAN #### [address] PT Coag (PPP) [Time] 14.0 s High 9.0-12.9 [facility] Comment on above: Performed By: #### U CREA, REHAN #### [address] Complete Blood Count Auto Di ffon 01-06-2023 Basophils (Bld) [#/Vol] 0.0 10*3/uL Normal 0.0-0.2 [facility] Comment on above: Result Comment: PERF ORMED BY: [place] [address] PATHOLOGIST NETWORK DESIGNER RICHARD OLSEN M.D. Performed By: #### U CREA, REHAN #### [place] [address] [place] Basophils/100 WBC (Bld) 0.3 % Normal . [facility] Comment on above: Performed By: #### U CREA, REHAN #### [place] [address] [place] Eosinophils (Bld) [#/Vol] 0.2 10*3/uL Normal 0.0-0.45 [facility] Comment on above: Performed By: #### U CREA, REHAN #### [place] [address] [place] Eosinophils/100 WBC (Bld) 2.8 % Normal . [facility] Comment on above: Performed By: #### U CREJuan, REHAN #### [address] Erythrocyte distribution width (RBC) [Ratio] 18.0 % High 12.0-14.8 [facility] Comment on above: Performed By: #### U CREA, REHAN #### [address] Hematocrit (Bld) [Volume fraction] 30.0 % Low 38.8-50.0 [facility] Comment on above: Performed By: #### U CREJuan, REHAN #### [address] Hemoglobin (Bld) [Mass/Vol] 9.8 g/dL Low 13.0-17.0 [facility] Comment on above: Performed By: #### U CREJuan, REHAN #### [address] Lymphocytes (Bld) [#/Vol] 0.9 10*3/uL Low 1.00-4.8 [facility] Comment on above: Performed By: #### U CREJuan, REHAN #### [address] Lymphocytes/100 WBC (Bld) 14.7 % Normal . [facility] Comment on above: Performed By: #### U CREJuan, REHAN #### [address] MCH (RBC) [Entitic mass] 25.1 pg Low 27.5-35.2 [facility] Comment on above: Performed By: #### U CREA, REHAN #### [address] MCV (RBC) [Entitic vol] 77.1 fL Low 83.5-101 [facility] Comment on above: Performed By: #### U CREA, REHAN #### [address] Mean Corpuscular HGB Conc 32.6 g/dL Normal 32.5-35.6 [facility] Comment on above: Performed By: #### U CREA, REHAN #### [address] Monocytes (Bld) [#/Vol] 0.3 10*3/uL Normal 0.0-0.8 [facility] Comment on above: Performed By: #### U CREA, REHAN #### [address] Monocytes/100 WBC (Bld) 4.7 % Normal . [facility] Comment on above: Performed By: #### U CREA, REHAN #### [address] Neutrophils (Bld) [#/Vol] 4.8 10*3/uL Normal 1.8-7.7 [facility] Comment on above: Performed By: #### U CREA, REHAN #### [address] Neutrophils/100 WBC (Bld) 77.5 % Normal . [facility] Comment on above: Performed By: #### U CREA, REHAN #### [address] NRBC% 0.1 /100{WBC} Normal 0-0.5 [facility] Comment on above: Performed By: #### U CREA, REHAN #### [place] [address] [place] Platelet mean volume (Bld) [Entitic vol] 6.2 fL Low 6.6-10.1 [facility] Comment on above: Performed By: #### U CREA, REHAN #### [place] [address] [place] Platelets (Bld) [#/Vol] 339 10*3/uL Normal 150-450 [facility] Comment on above: Performed By: #### U CREA, REHAN #### [place] [address] [place] RBC (Bld) [#/Vol] 3.90 10*6/uL Normal 3.90-5.60 [facility] Comment on above: Performed By: #### U CREJuan, REHAN #### [facility] [address] WBC (Bld) [#/Vol] 6.2 10*3/uL Normal 4.1-10.5 [facility] Comment on above: Performed By: #### U CREJuan, REHAN #### [facility] [address] [place] [address] [place] Creatinine, Urine (Random)on 01-06-2023 Creatinine, Urine (Random) 78.0 mg/dL High 14.0-26.0 [facility] Comment on above: Performed By: #### U WILLIE, REHAN #### [facility] [address] [place] [address] Dipstick and Microscopicon 0 01-06-2023 Appearance (U) Turbid Critically abnormal Clear [facility] Comment on above: Order Comment: Name Collection Type:: Sanchez Catheter Performed By: #### G LULS #### Point of Care testing , Bacteria,Urine 2+ High None Seen [facility] Comment on above: Order Comment: Name Collection Type:: Sanchez Catheter Performed By: #### G LULS #### Point of Care testing , Bilirubin,Urine Negative Normal Negative [facility] Comment on above: Order Comment: Name Collection Type:: Sanchez Catheter Performed By: #### G LULS #### Point of Care testing , Color (U) [place] Critically abnormal Yellow [facility] Comment on above: Order Comment: Name Collection Type:: Sanchez Catheter Performed By: #### G LULS #### Point of Care testing , Glucose Ql (U) Normal Normal Normal [facility] Comment on above: Order Comment: Name Collection Type:: Sanchez Catheter Performed By: #### G LULS #### Point of Care testing , Hyaline Casts,Urine 5-9 High 0-1 [facility] Comment on above: Order Comment: Name Collection Type:: Sanchez Catheter Performed By: #### G LULS #### Point of Care testing , Ketones Ql (U) Negative Normal Negative [facility] Comment on above: Order Comment: Name Collection Type:: Sanchez Catheter Performed By: #### G LULS #### Point of Care testing , Leukocyte esterase Test strip Ql (U) 3+ High Negative [facility] Comment on above: Order Comment: Name Collection Type:: Sanchez Catheter Performed By: #### G LULS #### Point of Care testing , Nitrite,Urine Negative Normal Negative [facility] Comment on above: Order Comment: Name Collection Type:: Sanchez Catheter Performed By: #### G LULS #### Point of Care testing , Occult Blood,Urine 3+ High Negative [facility] Comment on above: Order Comment: Name Collection Type:: Sanchez Catheter Result Comment: PERF ORMED BY: [facility] [address] [place] [address] PATHOLOGIST NETWORK DESIGNER RICHARD OLSEN M.D. Performed By: #### G LULS #### Point of Care testing , pH (U) 6.0 [pH] Normal 5.0-9.0 [facility] Comment on above: Order Comment: Name Collection Type:: Sanchez Catheter Performed By: #### G LULS #### Point of Care testing , Protein (U) [Mass/Vol] 300 mg/dL High Negative [facility] Comment on above: Order Comment: Name Collection Type:: Sanchez Catheter Performed By: #### G LULS #### Point of Care testing , RBC,Urine Innumerable High 0-4 [facility] Comment on above: Order Comment: Name Collection Type:: Sanchez Catheter Performed By: #### G LULS #### Point of Care testing , Specificy [place],Urine 1.016 Normal 1.001-1.030 [facility] Comment on above: Order Comment: Name Collection Type:: Sanchez Catheter Performed By: #### G LULS #### Point of Care testing , Squamous Epithelial Cell,Urine 3-4 High 0-2 [facility] Comment on above: Order Comment: Name Collection Type:: Sanchez Catheter Performed By: #### G LULS #### Point of Care testing , Urobilinogen,Urine Normal Normal Normal [facility] Comment on above: Order Comment: Name Collection Type:: Sanchez Catheter Performed By: #### G LULS #### Point of Care testing , WBC,Urine Innumerable High 0-4 [facility] Comment on above: Order Comment: Name Collection Type:: Sanchez Catheter Performed By: #### G LULS #### Point of Care testing , Yeast,Urine 3+ Critically abnormal None Seen [facility] Comment on above: Order Comment: Name Collection Type:: Sanchez Catheter Result Comment: PERF ORMED BY: [place] [id number] PATHOLOGIST NETWORK DESIGNER RICHARD OLSEN M.D. Performed By: #### G LULS #### Point of Care testing , Glucose Poct Glucometerson 0 01-06-2023 Glucose [Mass/Vol] 289 mg/dL Normal [facility] Comment on above: Result Comment: [facility] om Glucose Reference Range is dependent on time and content of last meal. Glucose of more than 200 mg/dL in a nonstressed, ambulatory subject supports the diagnosis of Diabetes Mellitus. PERFORMED BY: [place] [phone] PATHOLOGIST NETWORK DESIGNER RICHARD OLSEN M.D. Performed By: #### U CREA, REHAN #### [address] Commemt1 Glu2: Cleaned Meter Normal [facility] Comment on above: Result Comment: PERF ORMED BY: [phone] PATHOLOGIST NETWORK DESIGNER RICHARD OLSEN M.D. Performed By: #### G LULS #### Point of Care testing , Glucose [Mass/Vol] 213 mg/dL Normal [facility] Comment on above: Result Comment: [facility] om Glucose Reference Range is dependent on time and content of last meal. Glucose of more than 200 mg/dL in a nonstressed, ambulatory subject supports the diagnosis of Diabetes Mellitus. Performed By: #### G LULS #### Point of Care testing , Glucose [Mass/Vol] 191 mg/dL Normal [facility] Comment on above: Result Comment: [facility] Glucose Reference Range is dependent on time and content of last meal. Glucose of more than 200 mg/dL in a nonstressed, ambulatory subject supports the diagnosis of Diabetes Mellitus. PERFORMED BY: [place] [address] PATHOLOGIST NETWORK DESIGNER RICHARD OLSEN M.D. Performed By: #### U CREA, REHAN #### [place] [address] [place] Glucose [Mass/Vol] 164 mg/dL Normal [facility] Comment on above: Result Comment: [facility] Glucose Reference Range is dependent on time and content of last meal. Glucose of more than 200 mg/dL in a nonstressed, ambulatory subject supports the diagnosis of Diabetes Mellitus. PERFORMED BY: [place] [address] PATHOLOGIST NETWORK DESIGNER RICHARD OLSEN M.D. Performed By: #### U CREA, REHAN #### [facility] [address] [place] [address] Glucose [Mass/Vol] 191 mg/dL Normal [facility] Comment on above: Result Comment: [facility] Glucose Reference Range is dependent on time and content of last meal. Glucose of more than 200 mg/dL in a nonstressed, ambulatory subject supports the diagnosis of Diabetes Mellitus. PERFORMED BY: [place] [address] PATHOLOGIST NETWORK DESIGNER RICHARD OLSEN M.D. Performed By: #### G LULS #### Point of Care testing , Gram Stainon 01-06-2023 Microscopic observation Gram stain Nom (Unsp spec) Comment Proximal Intramedullary Canal Gram Stain Result 2+ White Blood Cells No Bacteria Seen PERFORMED BY: [place] [address] PATHOLOGIST NETWORK DESIGNER RICHARD OLSEN M.D. [facility] Comment on above: Performed By: #### G DAVID #### Point of Care testing , Bharath 01-06-2023 L Specimen: [id number] Received: 01/06/23 Status: VINOD Hidalgo Num: [id number] Spec Type: Surgical Subm Dr: Rory Duffy DO Tissues: A Extremity - Amputation, Non-Traumatic (RT FOOT) Procedures: /Bette, Gross/Micro L5, Decalcification Age/ Patient Sex Location Account Attending Physician Toribio Meza/Vignesh [id number] Chucho Fitzpatrick MD SPEC NUM: [id number] RECD: 01/06/23 STATUS: VINOD HIDALGO NUM: [id number] CELINE: 01/06/[address]: Rory Duffy DO ENTERED: 01/06/[address] [facility] [address]: SPEC TYPE: Surgical DEPT: S ORDERED: HE/4, Gross/Micro L5, Decalcification ORDERED: HE/4, Gross/Micro L5, Decalcification Pathological Diagnosis Foot, right, below knee amputation: - Skin and soft tissue with ulceration, necrosis, granulation tissue and acute and chronic inflammation - Bone with areas of necrosis and acute and chronic osteomyelitis - Soft tissue and bone margins has viable tissue Clinical Information Right ankle osteomyelitis Gross Description Received fresh labeled with the patient's name, date of and right foot is a right below the knee amputation specimen measuring 24.0 cm in length from resection margin to heel and 29.0 cm in length from heel to the tip of the great toe. All five toes are present. There is a 1.5 cm in length portion of tibia and a 2.0 cm in length portion of fibula extending from the resection margin. There is an 8.0 cm linear defect along the lateral ankle closed with black sutures. There is focal skin ulceration adjacent to the suture line and a 7.8 cm linear, healing defect adjacent to the ulcerated area. Sectioning reveals edema of the soft tissues with underlying hemorrhage. Multiple green foreign objects are extracted from beneath the ankle defect consistent with prosthesis cement. The green objects are connected by black suture material. Further dissection through the ankle reveals a 6.0 x 5.0 x 4.5 cm cystic cavity containing serosanguineous fluid. Bone adjacent Specimen: [id number] Received: 01/06/23 Status: VINOD Hidalgo Num: [id number] Spec Type: Surgical Subm Dr: Rory A Tati, DO Tissues: A Extremity - Amputation, Non-Traumatic (RT FOOT) Procedures: , Gross/Micro L5, Decalcification Patient: Toribio Meza [id number] (Continued) Specimen: [id number] Received: 01/06/23 (Continued) Gross Description (Continued) Signed (signatur e on file) Capo Singh MD 01/11/23 0905 Specimen: [id number] Received: 01/06/23 Status: VINOD Hidalgo Num: [id number] Spec Type: Surgical Subm Dr: Rory Duffy DO Tissues: A Extremity - Amputation, Non-Traumatic (RT FOOT) Procedures: , Gross/Micro L5, Decalcification Patient: Toribio Meza [id number] (Continued) Specimen: [id number] Received: 01/06/23-1399 (Continued) Gross Description (Continued) to the cavity is softened, womack-red. The skin of the remainder of the extremity is womakc- white, hairless. Within the marrow cavity of the tibia at the resection margin is chambers black foreign material. Womack red clotted material is at the resection margin of the fibula. The posterior tibial artery focal apparent ossification of the soft tissues is identified at the resection margin. Focal atherosclerosis is identified within the anterior tibial artery. The posterior tibial artery may be involved by the ossification and cannot be grossly identified on dissection.. [employer] Developing Machine Operator are submitted following decalcification in 4 cassettes as follows: A1 - Ankle skin lesion A2 - Ankle cavity and adjacent probable bone. A3 - Skin, soft tissue, vascular and bony margins A4 - Anterior tibial artery, dorsalis pedis artery and possible posterior tibial artery Microscopic Description Four H E slides reviewed. The microscopic examination confirms the diagnosis. CPT Codes 67115, 76047 (more content not included)... Normal [facility] Osmolality, Urineon 01-07-20 Osmolality, Urine 323 mosm Normal 250-900 [facility] Comment on above: Result Comment: PERF ORMED BY: [place] [address] PATHOLOGIST NETWORK DESIGNER RICHARD OLSEN M.D. Performed By: #### U ROSMO #### [address] Sodium, Urine (Random)on Sodium (U) [Moles/Vol] 49 mmol/L Normal [facility] Comment on above: Result Comment: No r eference range established PERFORMED BY: [place] [address] PATHOLOGIST NETWORK DESIGNER RICHARD OLSEN M.D. Performed By: #### U CREA, REHAN #### [facility] [address] [place] [address] Urine Cultureon 01-06-2023 Bacteria identified Cx Nom (U) ORGANISM: Jocy glabrata (O:CANGLA) [place] Count >100,000 PERFORMED BY: [place] [address] PATHOLOGIST NETWORK DESIGNER RICHARD OLSEN M.D. Normal [facility] Comment on above: Performed By: #### G LULS #### Point of Care testing , Urine Urea Nitrogenon 2022 Urine Urea Nitrogen 437 mg/dL Normal Not Estab. [facility] Comment on above: Result Comment: Perf ormed at: - [facility] [address] [id number] Superintendent Laundry: Daniel Santiago PhD, Phone: [phone] PERFORMED BY: [place] [address] PATHOLOGIST NETWORK DESIGNER RICHARD OLSEN M.D. Performed By: #### U CREA, REHAN #### [facility] [address] [place] [address] ABO/Rh Retypeon 01-05-2023 ABO/RH Recheck Result Positive Normal [facility] Comment on above: Result Comment: PERF ORMED BY: [place] [address] PATHOLOGIST NETWORK DESIGNER RICHARD OLSEN M.D. Complete Blood Count Auto Di ffon 01-05-2023 Basophils (Bld) [#/Vol] 0.1 10*3/uL Normal 0.0-0.2 [facility] Comment on above: Order Comment: sent tubes and labels up Result Comment: PERF ORMED BY: [place] [address] PATHOLOGIST NETWORK DESIGNER RICHARD OLSEN M.D. Performed By: #### U CREA, REHAN #### [address] Basophils/100 WBC (Bld) 1.2 % Normal . [facility] Comment on above: Order Comment: sent tubes and labels up Performed By: #### U CREA, REHAN #### [address] Eosinophils (Bld) [#/Vol] 0.2 10*3/uL Normal 0.0-0.45 [facility] Comment on above: Order Comment: sent tubes and labels up Performed By: #### U CREA, REHAN #### [place] [address] [place] Eosinophils/100 WBC (Bld) 2.8 % Normal . [facility] Comment on above: Order Comment: sent tubes and labels up Performed By: #### U CREA, REHAN #### [address] Erythrocyte distribution width (RBC) [Ratio] 17.7 % High 12.0-14.8 [facility] Comment on above: Order Comment: sent tubes and labels up Performed By: #### U CREA, REHAN #### [address] Hematocrit (Bld) [Volume fraction] 28.6 % Low 38.8-50.0 [facility] Comment on above: Order Comment: sent tubes and labels up Performed By: #### U CREA, REHAN #### [address] Hemoglobin (Bld) [Mass/Vol] 9.2 g/dL Low 13.0-17.0 [facility] Comment on above: Order Comment: sent tubes and labels up Performed By: #### U CREA, REHAN #### [address] Lymphocytes (Bld) [#/Vol] 0.9 10*3/uL Low 1.00-4.8 [facility] Comment on above: Order Comment: sent tubes and labels up Performed By: #### U CREA, REHAN #### [address] Lymphocytes/100 WBC (Bld) 14.5 % Normal . [facility] Comment on above: Order Comment: sent tubes and labels up Performed By: #### U CREA, REHAN #### [address] MCH (RBC) [Entitic mass] 24.4 pg Low 27.5-35.2 [facility] Comment on above: Order Comment: sent tubes and labels up Performed By: #### U CREA, REHAN #### [address] MCV (RBC) [Entitic vol] 76.1 fL Low 83.5-101 [facility] Comment on above: Order Comment: sent tubes and labels up Performed By: #### U CREA, REHAN #### [address] Mean Corpuscular HGB Conc 32.1 g/dL Low 32.5-35.6 [facility] Comment on above: Order Comment: sent tubes and labels up Performed By: #### U CREA, REHAN #### [place] [address] [place] Monocytes (Bld) [#/Vol] 0.3 10*3/uL Normal 0.0-0.8 [facility] Comment on above: Order Comment: sent tubes and labels up Performed By: #### U CREA, REHAN #### [place] [address] [place] Monocytes/100 WBC (Bld) 5.4 % Normal . [facility] Comment on above: Order Comment: sent tubes and labels up Performed By: #### U CREA, REHAN #### [address] Neutrophils (Bld) [#/Vol] 4.6 10*3/uL Normal 1.8-7.7 [facility] Comment on above: Order Comment: sent tubes and labels up Performed By: #### U CREA, REHAN #### [address] Neutrophils/100 WBC (Bld) 76.1 % Normal . [facility] Comment on above: Order Comment: sent tubes and labels up Performed By: #### U CREA, REHAN #### [address] NRBC% 0.0 /100{WBC} Normal 0-0.5 [facility] Comment on above: Order Comment: sent tubes and labels up Performed By: #### U CREA, REHAN #### [address] Platelet mean volume (Bld) [Entitic vol] 6.3 fL Low 6.6-10.1 [facility] Comment on above: Order Comment: sent tubes and labels up Performed By: #### U CREA, REHAN #### [address] Platelets (Bld) [#/Vol] 347 10*3/uL Normal 150-450 [facility] Comment on above: Order Comment: sent tubes and labels up Performed By: #### U CREA, REHAN #### [place] [address] [place] RBC (Bld) [#/Vol] 3.76 10*6/uL Low 3.90-5.60 [facility] Comment on above: Order Comment: sent tubes and labels up Performed By: #### U CREA, REHAN #### [place] [address] [place] WBC (Bld) [#/Vol] 6.1 10*3/uL Normal 4.1-10.5 [facility] Comment on above: Order Comment: sent tubes and labels up Performed By: #### U CREA, REHAN #### [facility] [address] Comprehensive Metabolic Pane bharath 01-05-2023 Albumin [Mass/Vol] 3.1 g/dL Low 3.5-5.7 [facility] Comment on above: Order Comment: sent tubes and labels up Performed By: #### U CREA, REHAN #### [address] Albumin/Globulin [Mass ratio] 0.9 {ratio} Normal [facility] Comment on above: Order Comment: sent tubes and labels up Performed By: #### U CREA, REHAN #### [facility] [address] [place] [address] ALP [Catalytic activity/Vol] 84 U/L Normal 34-104 [facility] Comment on above: Order Comment: sent tubes and labels up Performed By: #### U CREA, REHAN #### [facility] [address] [place] [address] ALT [Catalytic activity/Vol] 11 U/L Normal 7-52 [facility] Comment on above: Order Comment: sent tubes and labels up Performed By: #### U CREA, REHAN #### [facility] [address] [place] [address] Anion gap [Moles/Vol] 10.6 mmol/L Normal 6.0-15.0 [facility] Comment on above: Order Comment: sent tubes and labels up Performed By: #### U CREA, REHAN #### [facility] [address] [place] [address] [place] AST [Catalytic activity/Vol] 16 U/L Normal 13-39 [facility] Comment on above: Order Comment: sent tubes and labels up Performed By: #### U CREA, REHAN #### [facility] [address] [place] [address] Bilirubin [Mass/Vol] 0.5 mg/dL Normal 0.3-1.0 [facility] Comment on above: Order Comment: sent tubes and labels up Performed By: #### U CREA, REHAN #### [facility] [address] [place] [address] Calcium [Mass/Vol] 8.2 mg/dL Low 8.6-10.3 [facility] Comment on above: Order Comment: sent tubes and labels up Performed By: #### U CREA, REHAN #### [address] Chloride [Moles/Vol] 99 mmol/L Normal 98-107 [facility] Comment on above: Order Comment: sent tubes and labels up Performed By: #### U CREA, REHAN #### [address] CO2 [Moles/Vol] 30.6 mmol/L Normal 21.0-31.0 [facility] Comment on above: Order Comment: sent tubes and labels up Performed By: #### U CREA, REHAN #### [address] Creatinine [Mass/Vol] 1.57 mg/dL High 0.70-1.[address] [facility] Comment on above: Order Comment: sent tubes and labels up Performed By: #### U CREA, REHAN #### [address] Creatinine Clr Calc Pharmacy 107.28 Normal [facility] Comment on above: Order Comment: sent tubes and labels up Result Comment: PERF ORMED BY: [place] [address] PATHOLOGIST NETWORK DESIGNER RICHARD OLSEN M.D. Performed By: #### U CREA, REHAN #### [facility] [address] [place] [address] [place] GFR/1.73 sq M.predicted MDRD (S/P/Bld) [Vol rate/Area] 50.459 mL/min/{1.73_m2} Normal [facility] Comment on above: Order Comment: sent tubes and labels up Performed By: #### U CREA, REHAN #### [facility] [address] [place] [id number] [place] Globulin (S) [Mass/Vol] 3.6 g/dL Normal [facility] Comment on above: Order Comment: sent tubes and labels up Performed By: #### U CREA, REHAN #### [facility] [address] [place] [address] [place] Glucose [Mass/Vol] 114 mg/dL High 70-100 [facility] Comment on above: Order Comment: sent tubes and labels up Result Comment: [facility] Glucose Reference Range is dependent on time and content of last meal. Glucose of more than 200 mg/dL in a nonstressed, ambulatory subject supports the diagnosis of Diabetes Mellitus. ADA recommended reference range Performed By: #### U CREA, REHAN #### [facility] [address] [place] [address] [place] Potassium [Moles/Vol] 4.2 mmol/L Normal 3.5-5.[address] [facility] Comment on above: Order Comment: sent tubes and labels up Performed By: #### U CREA, REHAN #### [facility] [address] [place] [id number] [place] Protein [Mass/Vol] 6.7 g/dL Normal 6.4-8.9 [facility] Comment on above: Order Comment: sent tubes and labels up Performed By: #### U CREA, REHAN #### [facility] [address] [place] [id number] [place] Sodium [Moles/Vol] 136 mmol/L Normal 136-145 [facility] Comment on above: Order Comment: sent tubes and labels up Performed By: #### U CREA, REHAN #### [facility] [address] [place] [phone] [place] Urea nitrogen [Mass/Vol] 37 mg/dL High 7-25 [facility] Comment on above: Order Comment: sent tubes and labels up Performed By: #### U CREA, REHAN #### [facility] [address] [place] [phone] [place] Glucose Poct Glucometerson 0 01-05-2023 Glucose [Mass/Vol] 123 mg/dL Normal [facility] Comment on above: Result Comment: [facility] Glucose Reference Range is dependent on time and content of last meal. Glucose of more than 200 mg/dL in a nonstressed, ambulatory subject supports the diagnosis of Diabetes Mellitus. PERFORMED BY: [place] [address] PATHOLOGIST NETWORK DESIGNER RICHARD OLSEN M.D. Performed By: #### U CREA, REHAN #### [facility] [address] [place] [address] Commemt1 Glu2: Cleaned Meter Normal [facility] Comment on above: Result Comment: PERF ORMED BY: [place] [address] PATHOLOGIST NETWORK DESIGNER RICHARD OLSEN M.D. Performed By: #### U CREA, REHAN #### [address] Glucose [Mass/Vol] 143 mg/dL Normal [facility] Comment on above: Result Comment: [facility] Glucose Reference Range is dependent on time and content of last meal. Glucose of more than 200 mg/dL in a nonstressed, ambulatory subject supports the diagnosis of Diabetes Mellitus. Performed By: #### U CREA, REHAN #### [address] Glucose [Mass/Vol] 129 mg/dL Normal [facility] Comment on above: Result Comment: [facility] Glucose Reference Range is dependent on time and content of last meal. Glucose of more than 200 mg/dL in a nonstressed, ambulatory subject supports the diagnosis of Diabetes Mellitus. PERFORMED BY: [place] [address] PATHOLOGIST NETWORK DESIGNER RICHARD OLSEN M.D. Performed By: #### U CREA, REHAN #### [facility] [address] [place] [address] Glucose [Mass/Vol] 108 mg/dL Normal [facility] Comment on above: Result Comment: [facility] Glucose Reference Range is dependent on time and content of last meal. Glucose of more than 200 mg/dL in a nonstressed, ambulatory subject supports the diagnosis of Diabetes Mellitus. PERFORMED BY: [place] [address] PATHOLOGIST NETWORK DESIGNER RICHARD OLSEN M.D. Performed By: #### U CREA, REHAN #### [address] Glucose [Mass/Vol] 212 mg/dL Normal [facility] Comment on above: Result Comment: [facility] Glucose Reference Range is dependent on time and content of last meal. Glucose of more than 200 mg/dL in a nonstressed, ambulatory subject supports the diagnosis of Diabetes Mellitus. PERFORMED BY: [place] [address] PATHOLOGIST NETWORK DESIGNER RICHARD OLSEN M.D. Performed By: #### U CREA, REHAN #### [address] LeukoReduced RBCon 3 LeukoReduced RBC TRANSFUSED 01/05/23 1528 [facility] Type and Screenon 01-05-2023 ABO and Rh group Nom (Bld) Blood group A Rh(D) positive [facility] Comment on above: Order Comment: Trans fuse now? Y Number of units to transfuse now? 1 Transfuse now? Y Number of units to transfuse now? 1 Result Comment: PERF ORMED BY: [place] [address] PATHOLOGIST NETWORK DESIGNER RICHARD OLSEN M.D. A1C with Estimated Average G luon 01-04-2023 Glucose [Mass/Vol] 186 mg/dL Normal [facility] Comment on above: Result Comment: PERF ORMED BY: [place] [address] PATHOLOGIST NETWORK DESIGNER RICHARD OLSEN M.D. Performed By: #### U CREA, REHAN #### [place] [phone] [facility] HbA1c (Bld) [Mass fraction] 8.1 % High 4.3-5.6 [facility] Comment on above: Result Comment: Incr eased risk for diabetes: 5.7 - 6.4 diabetes: >6.4 glycemic control for adults with diabetes: <7.0 Performed By: #### U CREJuan, REHAN #### [facility] [address] [place] [phone] [facility] Aldosteroneon 01-04-2023 Aldosterone 7.0 ng/dL Normal 0.0-30.0 [facility] Comment on above: Result Comment: This test was developed and its performance characteristics determined by [facility]. It has not been cleared or approved by the Food and Drug Administration. Performed at: [address] [id number] Superintendent Laundry: Trista Lr MD, Phone: [phone] PERFORMED BY: [place] [address] PATHOLOGIST NETWORK DESIGNER RICHARD OLSEN M.D. Performed By: #### U CREA, REHAN #### [address] Basic Metabolic Panelon 08 Anion gap [Moles/Vol] 13.3 mmol/L Normal 6.0-15.0 [facility] Comment on above: Performed By: #### U CREA, REHAN #### [facility] [address] [place] [address] Calcium [Mass/Vol] 9.1 mg/dL Normal 8.6-10.3 [facility] Comment on above: Performed By: #### U CREA, REHAN #### [facility] [address] [place] [address] [place] Chloride [Moles/Vol] 95 mmol/L Low 98-107 [facility] Comment on above: Performed By: #### U CREA, ERHAN #### [facility] [address] [place] [phone] [facility] CO2 [Moles/Vol] 30.1 mmol/L Normal 21.0-31.0 [facility] Comment on above: Performed By: #### U CREA, REHAN #### [facility] [address] Creatinine [Mass/Vol] 1.72 mg/dL High 0.70-1.[address] [facility] Comment on above: Performed By: #### U CREJuan, REHAN #### [facility] [address] [place] [address] [place] Creatinine Clr Calc Pharmacy 97.93 [facility] Comment on above: Performed By: #### U CREA, REHAN #### [facility] [address] [place] [address] [place] GFR/1.73 sq M.predicted MDRD (S/P/Bld) [Vol rate/Area] 45.225 mL/min/{1.73_m2} [facility] Comment on above: Performed By: #### U CREA, REHAN #### [address] Glucose [Mass/Vol] 148 mg/dL Significant c hange up 70-100 [facility] Comment on above: Result Comment: [facility] Glucose Reference Range is dependent on time and content of last meal. Glucose of more than 200 mg/dL in a nonstressed, ambulatory subject supports the diagnosis of Diabetes Mellitus. ADA recommended reference range Performed By: #### U CREJuan, REHAN #### [address] Potassium [Moles/Vol] 4.4 mmol/L Normal 3.5-5.[address] [facility] Comment on above: Performed By: #### U CREA, REHAN #### [place] [address] [place] Sodium [Moles/Vol] 134 mmol/L Low 136-145 [facility] Comment on above: Performed By: #### U CREA, REHAN #### [place] [address] [place] Urea nitrogen [Mass/Vol] 38 mg/dL High 7-25 [facility] Comment on above: Performed By: #### U CREA, REHAN #### [place] [address] [place] Cortisolon 01-04-2023 Cortisol 10.3 ug/dL [facility] Comment on above: Result Comment: Refe rence range: AM 6 - 24 ug/dl PM <10 ug/dl PERFORMED BY: [place] [address] PATHOLOGIST NETWORK DESIGNER RICHARD OLSEN M.D. Performed By: #### U WILLIE, REHAN #### [address] ECG 12 lead ECGon 01-04-2023 ECG 12 lead ECG [facility] [place] [address] Electrocardiograph Report Signed Patient: Toribio Meza MR#: [id number] 52 : 1965 Acct:[id number] Age/Sex: 57 / M ADM Date: 01/02/23 Loc: 3T Room: [address] [place] [address] Type: ADM IN Attending Dr: Chucho Fitzpatrick MD Ordering Provider: Hill Gilmore MD Date of Service: 01/04/2302/18/500 ECG/ECG 12 lead ECG: pre op Copies to: Test Reason : Blood Pressure : / mmHG Vent. Rate : 086 BPM Atrial Rate : 086 BPM P-R Int : 186 ms QRS Dur : 108 ms QT Int : 390 ms P-R-T Axes : 059 002 075 degrees QTc Int : 466 ms Normal sinus rhythm Normal ECG No previous ECGs available Confirmed by ROHIT CHAVEZ [facility], CÉSAR ([id number]) on 01/04/2023 5:13:28 PM Referred By: Electronically Signed By:CÉSAR BEE MD [facility] Transcribed By: MUS Signed By César Bee MD, FACC 01/04/23 1713 [facility] ECH echo transthoracicon ECH echo transthoracic [facility] [place] [address] Echocardiogram Signed Patient: Toribio Meza MR#: [id number] 52 : 1965 Acct:[id number] Age/Sex: 57 / M ADM Date: 01/02/23 Loc: 3T Room: [address] [place] [address] Type: ADM IN Attending Dr: Chucho Fitzpatrick MD Ordering Provider: Hill Gilmore MD Date of Service: 01/04/2302/18/500 ECH/[facility] echo transthoracic: pre surgery clearance Copies to: César Bee MD, [facility] Hill Gilmore MD Weight: 553 lb Performed By: MCKENNA Barragan BSA: 3.3 m2 BP: 118/73 mmHg Reason For Study: pre surgery clearance History: A-fib., Cellulitis, CHF, DVT, HTN, Morbid Obesity, KAIDEN, DM, Former Smoker Interpretation Summary Mild to moderate concentric left ventricular hypertrophy. There is borderline global hypokinesis of the left ventricle. Ejection Fraction = 50-55%. A variety of Doppler measurements indicate impaired left ventricular relaxation, which is associated with grade I/IV or mild diastolic dysfunction. The left atrium appears mildly dilated. There is no prior echocardiogram noted for this patient. Procedure/Quality: A two-dimensional transthoracic echocardiogram with color flow, Doppler and injection of contrast agent Definity was performed. The study was technically fair in quality. There is no prior echocardiogram noted for this patient. Left Ventricle: Mild to moderate concentric left ventricular hypertrophy. Ejection Fraction = 50-55%. A variety of Doppler measurements indicate impaired left ventricular relaxation, which is associated with grade I/IV or mild diastolic dysfunction. There is borderline global hypokinesis of the left ventricle. Left Atrium: The left atrium appears mildly dilated. The atrial septum appears normal. Right Atrium: The right atrium appears normal in size. Right Ventricle: The right ventricular size, thickness and function are normal. Aortic Valve: The aortic valve is mildly sclerotic. Mitral Valve: The mitral valve is moderately sclerotic. Tricuspid Valve: The tricuspid valve is normal. Pulmonic Valve: The pulmonic valve is not well seen, but is grossly normal. Arteries: The aortic root is normal size. Pericardium/Pleura: No pericardial effusion seen. There is no pleural effusion. IVC/Hepatic Viens: The IVC is normal in size with an inspiratory collapse of greater then 50%, suggesting normal right atrial pressure. Miscellaneous: No thrombus, vegetation or mass is seen. Measurements with Normals IVSd: 1.6 cm (0.7-1.1 cm)LVIDd: 4.9 cm (3.7-5.4 cm) LVPWd: 1.8 cm (0.7-1.1 cm)LVIDs: 4.0 cm (2.3-3.6 cm) LA dimension: 5.1 cm (2.3-4.0 cm)Ao root diam: 3.6 cm(2.0-3.6 cm) asc Aorta Diam: 3.3 cm(2.1-3.4cm) Doppler with Normals MV E max alireza: 71.6 cm/sec(0.8-1.3m/s) MV A max alireza: 83.6 cm/sec(0.0-0.0m/s) MV E/A: 0.86 (<1.5) MMode/2D Measurements Calculations RVDd: 3.8 cm FS: 17.7 % Ao root area: LVOT diam: 2.3 cm TAPSE: 3.1 cm EDV(Teich): 10.4 cm2 LVOT area: 4.1 cm2 RV S Alireza: 112.7 ml 14.4 cm/sec ESV(Teich): 71.2 ml EF(Teich): 36.8 % __ LVLd ap4: 9.6 cm SV(MOD-sp4): LAV(MOD-sp4): LA A2 area: 24.8 cm2 EDV(MOD-sp4): 108.0 ml 65.8 ml 172.0 ml LAV(MOD-sp2): LA A4 area: 22.2 cm2 LVLs ap4: 8.0 cm 83.6 ml LA length (vol): ESV(MOD-sp4): 5.9 cm 64.0 ml LA vol: 79.9 ml EF(MOD-sp4): 62.8 % LA vol index: 23.9 ml/m2 Doppler Measurements Calculations MV dec time: 0.13 sec E/E' lat: MV dec slope: TV max P.4 24.0 mmHg E/E' med: 564.5 cm/sec2 10.6 __ TR max alireza: 247.0 cm/sec TR max P.4 mmHg __ Transcribed By: LAVERNE Performed At: 01/04/23 0857 Signed By: César Bee MD, [facility] 01/04/23 1551 Normal [facility] Glucose Poct Glucometerson 0 01-04-2023 Commemt1 Glu2: Cleaned Meter [facility] Comment on above: Result Comment: PERF ORMED BY: [place] [address] PATHOLOGIST NETWORK DESIGNER RICHARD OLSEN M.D. Performed By: #### U CREA, REHAN #### [facility] [address] [place] [address] Glucose [Mass/Vol] 177 mg/dL Normal [facility] Comment on above: Result Comment: [facility] Glucose Reference Range is dependent on time and content of last meal. Glucose of more than 200 mg/dL in a nonstressed, ambulatory subject supports the diagnosis of Diabetes Mellitus. Performed By: #### U CREA, REHAN #### [facility] [address] [place] [address] Glucose [Mass/Vol] 185 mg/dL Normal [facility] Comment on above: Result Comment: [facility] Glucose Reference Range is dependent on time and content of last meal. Glucose of more than 200 mg/dL in a nonstressed, ambulatory subject supports the diagnosis of Diabetes Mellitus. PERFORMED BY: [place] [address] PATHOLOGIST NETWORK DESIGNER RICHARD OLSEN M.D. Performed By: #### U CREA, REHAN #### [facility] [address] [place] [address] Commemt1 Glu2: Cleaned Meter [facility] Comment on above: Result Comment: PERF ORMED BY: [address] [place] [address] PATHOLOGIST NETWORK DESIGNER RICHARD OSLEN M.D. Performed By: #### G DAVID #### Point of Care testing , Glucose [Mass/Vol] 169 mg/dL Normal [facility] Comment on above: Result Comment: [facility] Glucose Reference Range is dependent on time and content of last meal. Glucose of more than 200 mg/dL in a nonstressed, ambulatory subject supports the diagnosis of Diabetes Mellitus. Performed By: #### G LULS #### Point of Care testing , Lipid Panelon 01-04-2023 Cholesterol [Mass/Vol] 195 mg/dL Normal 140-200 [facility] Comment on above: Result Comment: Chol less than 200 mg/dl low risk Chol 201-239 mg/dl borderline risk Chol 240 mg/dl and greater high risk Performed By: #### U CREA, REHAN #### [facility] [address] [place] [address] [place] Cholesterol in HDL [Mass/Vol] 20 mg/dL Low 23-92 [facility] Comment on above: Result Comment: HDL CHOL ATP-III CLASSIFICATION Cardiovascular Risk HDL > or equal to 60 mg/dL LOW HDL < 40 mg/dL HIGH Performed By: #### U CREA, REHAN #### [facility] [address] [place] [id number] [place] Cholesterol.total/Chol esterol in HDL [Mass ratio] 9.8 {ratio} Normal <5.0 [facility] Comment on above: Performed By: #### U CREA, REHAN #### [facility] [address] [place] [address] [place] LDL Cholesterol,Calculated 127 mg/dL High 0-100 [facility] Comment on above: Result Comment: LDL ATP III CLASSIFICATION LDL less than 100 mg/dL Optimal LDL 100-129 mg/dL Near or above optimal LDL 130-159 mg/dL Borderline high LDL 160-189 mg/dL High LDL greater than 189 mg/dL Very high Performed By: #### U CREA, REHAN #### [facility] [address] [place] [address] [place] Triglyceride w/Reflex 242 mg/dL High 0-[address] [facility] Comment on above: Result Comment: TRIG ATP III CLASSIFICATION TRIG less than 150 mg/dL Normal TRIG 150-199 mg/dL Borderline high TRIG 200-500 mg/dL High TRIG greater than 500 mg/dL Very high Standard traceable to the Center for Disease Conrtrol and Prevention (CDC) test method. Performed By: #### Joseph TAPIA REHAN #### [address] VLDL CHOLESTEROL 48 mg/dL Normal [facility] Comment on above: Performed By: #### U WILLIE, REHAN #### [address] Renin Activityon 01-04-2023 Renin Activity 12.816 High 0.167-5.380 [facility] Comment on above: Result Comment: This test was developed and its performance characteristics determined by [employer]. It has not been cleared or approved by the Food and Drug Administration. Performed at: [facility] [address] [id number] Superintendent Laundry: Trista Lr MD, Phone: [phone] PERFORMED BY: [place] [address] PATHOLOGIST NETWORK DESIGNER RICHARD OLSEN M.D. Performed By: #### REHAN JOE #### [address] Thyroid Stimulating Hormoneo n 01-04-2023 TSH Qn 4.04 m[IU]/L Normal 0.45-5.33 [facility] Comment on above: Performed By: #### Joseph TAPIA REHAN #### [address] Vancomycin,Troughon 01-05-20 23 Vancomycin,Trough 21.1 ug/mL High 10.0-20.0 [facility] Comment on above: Order Comment: Time of next dose? 1300 Date of last dose?: 20230102 Time of last dose?: 1300 Result Comment: Last dose: - PERFORMED BY: [place] [address] PATHOLOGIST NETWORK DESIGNER RICHARD OLSEN M.D. Performed By: #### U WILLIE, REHAN #### [address] [place] [address] [facility] Basic Metabolic Panelon 08-0 Anion gap [Moles/Vol] 10.6 mmol/L Normal 6.0-15.0 [facility] Comment on above: Performed By: #### G JAGRUTILS #### Point of Care testing , Calcium [Mass/Vol] 9.1 mg/dL Normal 8.6-10.3 [facility] Comment on above: Performed By: #### G JAGRUTILS #### Point of Care testing , Chloride [Moles/Vol] 94 mmol/L Low 98-107 [facility] Comment on above: Performed By: #### G JAGRUTILS #### Point of Care testing , CO2 [Moles/Vol] 31.2 mmol/L High 21.0-31.0 [facility] Comment on above: Performed By: #### G JAGRUTILS #### Point of Care testing , Creatinine [Mass/Vol] 1.55 mg/dL High 0.70-1.[address] [facility] Comment on above: Performed By: #### G JAGRUTILS #### Point of Care testing , Creatinine Clr Calc Pharmacy 108.67 [facility] Comment on above: Performed By: #### G JAGRUTILS #### Point of Care testing , GFR/1.73 sq M.predicted MDRD (S/P/Bld) [Vol rate/Area] 51.242 mL/min/{1.73_m2} [facility] Comment on above: Performed By: #### G JAGRUTILS #### Point of Care testing , Glucose [Mass/Vol] 314 mg/dL High 70-100 [facility] Comment on above: Result Comment: [facility] Glucose Reference Range is dependent on time and content of last meal. Glucose of more than 200 mg/dL in a nonstressed, ambulatory subject supports the diagnosis of Diabetes Mellitus. ADA recommended reference range Performed By: #### G JAGRUTILS #### Point of Care testing , Potassium [Moles/Vol] 4.8 mmol/L Normal 3.5-5.[address] [facility] Comment on above: Performed By: #### G JAGRUTILS #### Point of Care testing , Sodium [Moles/Vol] 131 mmol/L Low 136-145 [facility] Comment on above: Performed By: #### G JAGRUTILS #### Point of Care testing , Urea nitrogen [Mass/Vol] 33 mg/dL High 7-25 [facility] Comment on above: Performed By: #### G JAGRUTILS #### Point of Care testing , Complete Blood Count Auto Di ffon 01-03-2023 Basophils (Bld) [#/Vol] 0.1 10*3/uL Normal 0.0-0.2 [facility] Comment on above: Result Comment: PERF ORMED BY: [facility] [address] [place] [address] PATHOLOGIST NETWORK DESIGNER RICHARD OLSEN M.D. Performed By: #### G JAGRUTILS #### Point of Care testing , Basophils/100 WBC (Bld) 1.5 % Normal . [facility] Comment on above: Performed By: #### G JAGRUTILS #### Point of Care testing , Eosinophils (Bld) [#/Vol] 0.1 10*3/uL Normal 0.0-0.45 [facility] Comment on above: Performed By: #### G JAGRUTILS #### Point of Care testing , Eosinophils/100 WBC (Bld) 2.1 % Normal . [facility] Comment on above: Performed By: #### G JAGRUTILS #### Point of Care testing , Erythrocyte distribution width (RBC) [Ratio] 17.5 % High 12.0-14.8 [facility] Comment on above: Performed By: #### G JAGRUTILS #### Point of Care testing , Hematocrit (Bld) [Volume fraction] 28.3 % Low 38.8-50.0 [facility] Comment on above: Performed By: #### G JAGRUTILS #### Point of Care testing , Hemoglobin (Bld) [Mass/Vol] 9.1 g/dL Low 13.0-17.0 [facility] Comment on above: Performed By: #### G JAGRUTILS #### Point of Care testing , Lymphocytes (Bld) [#/Vol] 0.9 10*3/uL Low 1.00-4.8 [facility] Comment on above: Performed By: #### Maria D HERNANDEZ #### Point of Care testing , Lymphocytes/100 WBC (Bld) 13.1 % Normal . [facility] Comment on above: Performed By: #### G JAGRUTILS #### Point of Care testing , MCH (RBC) [Entitic mass] 24.6 pg Low 27.5-35.2 [facility] Comment on above: Performed By: #### G JAGRUTILS #### Point of Care testing , MCV (RBC) [Entitic vol] 76.7 fL Low 83.5-101 [facility] Comment on above: Performed By: #### G JAGRUTILS #### Point of Care testing , Mean Corpuscular HGB Conc 32.1 g/dL Low 32.5-35.6 [facility] Comment on above: Performed By: #### Maria D CHANDLS #### Point of Care testing , Monocytes (Bld) [#/Vol] 0.3 10*3/uL Normal 0.0-0.8 [facility] Comment on above: Performed By: #### Maria D HERNANDEZ #### Point of Care testing , Monocytes/100 WBC (Bld) 4.3 % Normal . [facility] Comment on above: Performed By: #### G JAGRUTILS #### Point of Care testing , Neutrophils (Bld) [#/Vol] 5.5 10*3/uL Normal 1.8-7.7 [facility] Comment on above: Performed By: #### G JAGRUTILS #### Point of Care testing , Neutrophils/100 WBC (Bld) 79.0 % Normal . [facility] Comment on above: Performed By: #### G JAGRUTILS #### Point of Care testing , NRBC% 0.1 /100{WBC} Normal 0-0.5 [facility] Comment on above: Performed By: #### G JAGRUTILS #### Point of Care testing , Platelet mean volume (Bld) [Entitic vol] 6.2 fL Low 6.6-10.1 [facility] Comment on above: Performed By: #### G LULS #### Point of Care testing , Platelets (Bld) [#/Vol] 386 10*3/uL Normal 150-450 [facility] Comment on above: Performed By: #### G LULS #### Point of Care testing , RBC (Bld) [#/Vol] 3.69 10*6/uL Low 3.90-5.60 [facility] Comment on above: Performed By: #### G LULS #### Point of Care testing , WBC (Bld) [#/Vol] 7.0 10*3/uL Normal 4.1-10.5 [facility] Comment on above: Performed By: #### G DAVID #### Point of Care testing , Glucose Poct Glucometerson 0 01-03-2023 Glucose [Mass/Vol] 190 mg/dL Normal [facility] Comment on above: Result Comment: [facility] Glucose Reference Range is dependent on time and content of last meal. Glucose of more than 200 mg/dL in a nonstressed, ambulatory subject supports the diagnosis of Diabetes Mellitus. PERFORMED BY: [place] [address] PATHOLOGIST NETWORK DESIGNER RICHARD OLSEN M.D. Performed By: #### U WILLIE, REHAN #### [facility] [address] Glucose [Mass/Vol] 298 mg/dL Normal [facility] Comment on above: Result Comment: [facility] Glucose Reference Range is dependent on time and content of last meal. Glucose of more than 200 mg/dL in a nonstressed, ambulatory subject supports the diagnosis of Diabetes Mellitus. PERFORMED BY: [place] [address] PATHOLOGIST NETWORK DESIGNER RICHARD OLSEN M.D. Performed By: #### U CREJuan, REHAN #### [facility] [address] Glucose [Mass/Vol] 340 mg/dL Normal [facility] Comment on above: Result Comment: [facility] Glucose Reference Range is dependent on time and content of last meal. Glucose of more than 200 mg/dL in a nonstressed, ambulatory subject supports the diagnosis of Diabetes Mellitus. PERFORMED BY: [place] [phone] PATHOLOGIST NETWORK DESIGNER RICHARD OLSEN M.D. Performed By: #### G LULS #### Point of Care testing , Glucose [Mass/Vol] 256 mg/dL Normal [facility] Comment on above: Result Comment: [facility] Glucose Reference Range is dependent on time and content of last meal. Glucose of more than 200 mg/dL in a nonstressed, ambulatory subject supports the diagnosis of Diabetes Mellitus. PERFORMED BY: [place] [phone] PATHOLOGIST NETWORK DESIGNER RICHARD OLESN M.D. Performed By: #### U WILLIE, REHAN #### [address] Glucose [Mass/Vol] 255 mg/dL Normal [facility] Comment on above: Result Comment: [facility] Glucose Reference Range is dependent on time and content of last meal. Glucose of more than 200 mg/dL in a nonstressed, ambulatory subject supports the diagnosis of Diabetes Mellitus. PERFORMED BY: [place] [phone] PATHOLOGIST NETWORK DESIGNER RICHARD OLSEN M.D. Performed By: #### G LULS #### Point of Care testing , Hepatic Panelon 01-03-2023 Albumin [Mass/Vol] 3.2 g/dL Low 3.5-5.7 [facility] Comment on above: Performed By: #### G LULS #### Point of Care testing , Albumin/Globulin [Mass ratio] 0.8 {ratio} Normal [facility] Comment on above: Performed By: #### G LULS #### Point of Care testing , ALP [Catalytic activity/Vol] 97 U/L Normal 34-104 [facility] Comment on above: Performed By: #### G LULS #### Point of Care testing , ALT [Catalytic activity/Vol] 13 U/L Normal 7-52 [facility] Comment on above: Performed By: #### G JAGRUTILS #### Point of Care testing , AST [Catalytic activity/Vol] 18 U/L Normal 13-39 [facility] Comment on above: Performed By: #### G JAGRUTILS #### Point of Care testing , Bilirubin [Mass/Vol] 0.6 mg/dL Normal 0.3-1.0 [facility] Comment on above: Performed By: #### G JAGRUTILS #### Point of Care testing , Bilirubin,Indirect 0.5 mg/dL Normal [facility] Comment on above: Performed By: #### G JAGRUTILS #### Point of Care testing , Bilirubin.indirect [Mass/Vol] 0.10 mg/dL Normal 0.03-0.18 [facility] Comment on above: Performed By: #### G JAGRUTILS #### Point of Care testing , Globulin (S) [Mass/Vol] 4.2 g/dL Normal [facility] Comment on above: Performed By: #### G DAVID #### Point of Care testing , Protein [Mass/Vol] 7.4 g/dL Normal 6.4-8.9 [facility] Comment on above: Performed By: #### G JAGRUTILS #### Point of Care testing , Magnesiumon 01-03-2023 Magnesium [Mass/Vol] 1.8 mg/dL Low 1.9-2.7 [facility] Comment on above: Result Comment: PERF ORMED BY: [facility] [address] [place] [address] PATHOLOGIST NETWORK DESIGNER RICHARD OLSEN M.D. Performed By: #### G JAGRUTILS #### Point of Care testing , Vancomycin,Peakon 01-03-2023 Vancomycin,Peak 41.1 ug/mL High 20.0-40.0 [facility] Comment on above: Order Comment: Comme nt ?DRAW 1 HOUR AFTER INFUSION COMPLETES Date of last dose?: [id number] Time of last dose?: 1300 Result Comment: Last dose: - PERFORMED BY: [facility] [address] [place] [address] PATHOLOGIST NETWORK DESIGNER RICHARD OLSEN M.D. Performed By: #### G DAVID #### Point of Care testing , Vancomycin,Randomon 01-04-20 23 Vancomycin,Random 20.8 ug/mL High 5.0-20.0 [facility] Comment on above: Order Comment: Date of last dose?: 20230102 Time of last dose?: 1200 Result Comment: Last dose: - PERFORMED BY: [place] [address] PATHOLOGIST NETWORK DESIGNER RICHARD OLSEN M.D. Performed By: #### V ANCR #### [facility] [address] [place], [place] [id number] [facility] XR ANKLE RT MIN 3 VIEWSon XR ANKLE RT MIN 3 VIEWS Normal [facility] XR FOOT RT MIN 3 VIEWSon XR FOOT RT MIN 3 VIEWS Normal [facility] Physician Orderon 10-17-2022 Physician Order [id number] 202#1.00CD:[address] [facility] Vanc Troughon 10-17-2022 VANCOMYCIN 9 microgram/mL Low 1020 [facility] Comment on above: Performed By: #### 2 [id number] #### [facility] [address] [place] [address] Facesheeton 10-15-2022 Facesheet [id number]#1.00CD:[address] [facility] Physician Orderon 10-15-2022 Physician Order [id number] 79#1.00CD:[address] [facility] Vanco Troughon 10-15-2022 VANCOMYCIN 8 microgram/mL Low 1020 [facility] Comment on above: Performed By: #### 2 [id number] #### [facility] [address] [place] [address] Physician Orderon 10-12-2022 Physician Order [id number]#1.00CD:[address] [facility] Vanco Troughon 10-12-2022 VANCOMYCIN 7 microgram/mL Low 10-20 [facility] Comment on above: Performed By: #### 2 [id number] #### [facility] [address] [place] [address] ACID FAST SMEAR AND CXon Acid Fast Culture Negative Normal [facility] Comment on above: Result Comment: No a zenaida fast bacilli isolated after 6 weeks. Performed By: #### A FB ####[facility] [address] [place] [address]Dr. Shiraemilia Abarca Acid Fast Smear Negative Normal [facility] Comment on above: Performed By: #### A FB ####[facility] [address] [place] [address]Dr. Erica Abarca [employer] Specimen Processing Direct Inoculation [facility] Comment on above: Performed By: #### A FB ####[facility] [address] [place] [address]Dr. Erica Abarca POINT OF CARE GLUCOSEon 05-0 Glucose [Mass/Vol] 305 mg/dL Critically high [address] [place] [address] Comment on above: Performed By: #### P OCGLUC ####[facility] [address] [place] [address]Dr. Erica [facility] Glucose [Mass/Vol] 242 mg/dL Critically high [address] [place] [address] Comment on above: Performed By: #### P OCGLUC ####[facility] [address] [place] [address]Dr. Shiraemilia Abarca POINT OF CARE GLUCOSEon 04-3 Glucose [Mass/Vol] 208 mg/dL Critically high [address] [place] [address] Comment on above: Performed By: #### P OCGLUC ####[facility] [address] [place] [address]Dr. Erica Abarca Glucose [Mass/Vol] 249 mg/dL Critically high [facility]106 [facility] Comment on above: Performed By: #### P OCGLUC ####[facility] [address] [place] [address]Dr. Erica Abarca Glucose [Mass/Vol] 309 mg/dL Critically high 74-106 [facility] Comment on above: Performed By: #### P OCGLUC ####[facility] [address] [place] [id number]. Erica Abarca Glucose [Mass/Vol] 294 mg/dL Critically high 74-106 [facility] Comment on above: Performed By: #### P OCGLUC ####[facility] [address] [place] [address]Dr. Erica Abarca CBC AUTO DIFFon 09-24-2022 BASO # 0.0 103/ul Normal 0.0-0.1 [facility] Comment on above: Performed By: #### C BC ####[facility] [address] [place], [place] [address]Dr. Erica Tevin Basophils/100 WBC (Bld) 0.3 % Normal 0.2-2.0 [facility] Comment on above: Performed By: #### C BC ####[facility] [address] [place], [place] [address]Dr. Erica Abarca EO # 0.2 103/ul Normal 0.0-0.7 [facility] Comment on above: Performed By: #### C BC ####[facility] [address] [place], [place] [address]Dr. Erica Tevin Eosinophils/100 WBC (Bld) 3.4 % Normal 0.9-7.0 [facility] Comment on above: Performed By: #### C BC ####[facility] Md[address] [place], [place] [address]Dr. Erica Abarca Erythrocyte distribution width (RBC) [Ratio] 18.5 % Critically high 11.0-15.0 [facility] Comment on above: Performed By: #### C BC ####[facility] [address] [place], [place] [address]Dr. Erica Abarca Hematocrit (Bld) [Volume fraction] 33.0 % Critically low 42.0-54.0 [facility] Comment on above: Performed By: #### C BC ####[facility] [address] [place] [address]Dr. Erica Tevin Hemoglobin (Bld) [Mass/Vol] 9.8 g/dL Critically low 14.0-18.0 [facility] Comment on above: Performed By: #### C BC ####[facility] [address] [place] [address]Dr. Shiraemilia Tevin IG # 0.03 10e3/ul Normal 0.00-0.03 [facility] Comment on above: Performed By: #### C BC ####[facility] [address] [place] [address]Dr. Erica Abarca IG % 0.5 % Normal 0.0-0.5 [facility] Comment on above: Performed By: #### C BC ####[facility] [address] [place], [place] [address]Dr. Erica Abarca LYMPH # 1.1 103/ul Critically low 1.2-3.8 [facility] Comment on above: Performed By: #### C BC ####[facility] [address] [place] [address]Dr. Erica Abarca Lymphocytes/100 WBC (Bld) 17.2 % Critically low 20.5-60.0 [facility] Comment on above: Performed By: #### C BC ####[facility] [address] [place] [address]Dr. Erica Abarca MANUAL DIFF REQ NO Normal [facility] Comment on above: Performed By: #### C BC ####[facility] [address] [place] [address]Dr. Erica Abarca MCH (RBC) [Entitic mass] 23.7 pg Critically low 25.9-34.0 [facility] Comment on above: Performed By: #### C BC ####[facility] [address] [place] [address]Dr. Erica Abarca MCHC (RBC) [Mass/Vol] 29.7 g/dL Critically low 29.9-35.2 [facility] Comment on above: Performed By: #### C BC ####[facility] [address] [place] [address]DrCandi Abarca MCV (RBC) [Entitic vol] 79.9 fL Critically low 80.0-94.0 [facility] Comment on above: Performed By: #### C BC ####[facility] [address] [place] [address]DrCandi Abarca MONO # 0.3 103/ul Normal 0.3-0.8 [facility] Comment on above: Performed By: #### C BC ####[facility] [address] [place] [address]DrCandi Abarca Monocytes/100 WBC (Bld) 5.5 % Normal 1.7-12.0 [facility] Comment on above: Performed By: #### C BC ####[facility] [address] [place], [place] [address]DrCandi Abarca NEUT # 4.5 103/ul Normal 1.4-6.5 [facility] Comment on above: Performed By: #### C BC ####[facility] [address] [place], [place] [address]Dr. Erica Abarca Neutrophils/100 WBC (Bld) 73.1 % Normal 43.0-75.0 [facility] Comment on above: Performed By: #### C BC ####[facility] [address] [place], [place] [address]DrCandi Abarca Platelet mean volume (Bld) [Entitic vol] 8.7 fL Critically low 9.5-13.5 [facility] Comment on above: Performed By: #### C BC ####[facility] [address] [place], [place] [id number]. Erica Abarca PLT 206 103/ul Normal 150-450 [facility] Comment on above: Performed By: #### C BC ####[facility] Kxyqzpwmqn5050 [place] [id number] Abarca RBC 4.13 106/ul Critically low 4.70-6.10 [facility] Comment on above: Performed By: #### C BC ####[facility] Wrwiacpmbm8996 [place] [address]Dr. Erica Abarca WBC 6.2 103/ul Normal 4.0-11.0 [facility] Comment on above: Performed By: #### C BC ####[facility] Htyoxmsigz0043 [place] [address]Dr. Erica Abarca POINT OF CARE GLUCOSEon 08-28 Glucose [Mass/Vol] 257 mg/dL Critically high 74-106 [facility] Comment on above: Performed By: #### P OCGLUC ####[facility] Rrnewjpxqe9903 [place] [address]Dr. Erica Abarca Glucose [Mass/Vol] 274 mg/dL Critically high 74-106 [facility] Comment on above: Performed By: #### P OCGLUC ####[facility] Vugnnwgxte8526 [place] [address]Dr. Erica Abarca Glucose [Mass/Vol] 300 mg/dL Critically high 74-106 [facility] Comment on above: Performed By: #### P OCGLUC ####[facility] Wilbuqcqjz57[address] [place], [place] [address]Dr. Erica Abarca Glucose [Mass/Vol] 275 mg/dL Critically high 74-106 [facility] Comment on above: Performed By: #### P OCGLUC ####[facility] Oqtkktenas7731 [place] [address]Dr. Erica Abarca PROF 14(COMP METB)on 023 Albumin [Mass/Vol] 3.1 g/dL Critically low 3.4-5.0 [facility] Comment on above: Performed By: #### C MP ####[facility] Vxfcbugcnb7186 [place] [address]Dr. Erica Abarca Albumin/Globulin [Mass ratio] 0.7 {ratio} Normal [facility] Comment on above: Performed By: #### C MP ####[facility] Frlokgocxl4985 [place] [address]Dr. Erica Abarca ALP [Catalytic activity/Vol] 100 U/L Normal 46-116 [facility] Comment on above: Performed By: #### C MP ####[facility] Vhlxyeaehu5964 [place] [id number]. Erica Abarca ALT [Catalytic activity/Vol] 21 U/L Normal 16-63 [facility] Comment on above: Performed By: #### C MP ####[facility] Hndhamatav6556 [place] [address]Dr. Erica Abarca Anion gap [Moles/Vol] 10.0 mmol/L Normal [facility] Comment on above: Performed By: #### C MP ####[facility] Cjnbsglpwm23[address] [place], [place] [address]Dr. Erica Abarca AST [Catalytic activity/Vol] 25 U/L Normal 15-37 [facility] Comment on above: Performed By: #### C MP ####[facility] Qbzootoijn817[address] [place], [place] [address]Dr. Erica Tevin Bilirubin [Mass/Vol] 0.8 mg/dL Normal 0.2-1.0 [facility] Comment on above: Performed By: #### C MP ####[facility] Khnyjmnkcf16[address] [place], [place] [address]Dr. Erica Tevin Calcium [Mass/Vol] 9.1 mg/dL Normal 8.5-10.1 [facility] Comment on above: Performed By: #### C MP ####[facility] Nvxaduecto018[address] [place], [place] [address]Dr. Erica Tevin Chloride [Moles/Vol] 99 mmol/L Normal 98-107 [facility] Comment on above: Performed By: #### C MP ####[facility] Bhnwpakfzv65[address] [place], [place] [address]Dr. Erica Tevin CO2 [Moles/Vol] 32.7 mmol/L Critically high 21.0-32.0 [facility] Comment on above: Performed By: #### C MP ####[facility] Bleshehtkk5713[address] [place], [place] [address]Dr. Erica Tevin Creatinine [Mass/Vol] 1.47 mg/dL Critically high 0.70-1.30 [facility] Comment on above: Performed By: #### C MP ####[facility] Obabvvbshe1084 [place] [address]Dr. Erica Abarca EGFR-AF AUSTRIAN 60 mL/min/1.73m2 Normal >=60 [facility] Comment on above: Performed By: #### C MP ####[facility] Evbanmqrnl7238 [place] [address]Dr. Erica Abarca EGFR-NON AF AUSTRIAN 49 mL/min/1.73m2 Critically low >=60 [facility] Comment on above: Performed By: #### C MP ####[facility] Auoqobizxy488[address] [place], [place] [address]Dr. Erica Abarca Globulin (S) [Mass/Vol] 4.4 g/dL Normal [facility] Comment on above: Performed By: #### C MP ####[facility] Ulxnevwqqt139[address] [place], [place] [address]Dr. Erica Abarca Glucose [Mass/Vol] 229 mg/dL Critically high 74-106 [facility] Comment on above: Performed By: #### C MP ####[facility] Rkjbwbnozt170[address] [place], [place] [address]Dr. Erica Abarca Potassium [Moles/Vol] 3.7 mmol/L Normal 3.5-5.1 [facility] Comment on above: Performed By: #### C MP ####[facility] Zsjjspuhtw55[address] [place], [place] [address]Dr. Erica Abarca Protein [Mass/Vol] 7.5 g/dL Normal 6.4-8.2 [facility] Comment on above: Performed By: #### C MP ####[facility] Jrbudzopzy050[address] [place], [place] [address]Dr. Erica Abarca Sodium [Moles/Vol] 138 mmol/L Normal 136-145 [facility] Comment on above: Performed By: #### C MP ####[facility] Gfmijpfati5924[address] [place], [place] [address]Dr. Erica Abarca Urea nitrogen [Mass/Vol] 35.0 mg/dL Critically high 7.0-18.0 [facility] Comment on above: Performed By: #### C MP ####[facility] Uxhyfbpnrr26[address] [place], [place] [address]DrCandi Abarca Urea nitrogen/Creatinine [Mass ratio] 23.8 mg/mg Normal [facility] Comment on above: Performed By: #### C MP ####[facility] Zevjrlkxlc[address] [place], [place] [address]DrCandi Abarca CBC AUTO DIFFon 09-23-2022 BASO # 0.0 103/ul Normal 0.0-0.1 [facility] Comment on above: Performed By: #### C BC ####[facility] Dozxeplwmy97[address] [place], [place] [address]DrCandi Abarca Basophils/100 WBC (Bld) 0.5 % Normal 0.2-2.0 [facility] Comment on above: Performed By: #### C BC ####[facility] Daqhfynkhe0401[address] [place], [place] [address]DrCandi Abarca EO # 0.2 103/ul Normal 0.0-0.7 [facility] Comment on above: Performed By: #### C BC ####[facility] Rcvamhakne46[address] [place], [place] [address]DrCandi Abarca Eosinophils/100 WBC (Bld) 3.4 % Normal 0.9-7.0 [facility] Comment on above: Performed By: #### C BC ####[facility] Hdmtnaozfy185[address] [place], [place] [address]DrCandi Abarca Erythrocyte distribution width (RBC) [Ratio] 18.8 % Critically high 11.0-15.0 [facility] Comment on above: Performed By: #### C BC ####[facility] Qypgvqngmj8[address] [place], [place] [address]DrCandi Abarca Hematocrit (Bld) [Volume fraction] 31.2 % Critically low 42.0-54.0 [facility] Comment on above: Performed By: #### C BC ####[facility] Xflhskgaos910[address] [place], [place] [address]Dr. Erica Abarca Hemoglobin (Bld) [Mass/Vol] 9.5 g/dL Critically low 14.0-18.0 [facility] Comment on above: Performed By: #### C BC ####[facility] Ivdtyerkkl7871 [place] [address]Dr. Erica Abarca IG # 0.02 10e3/ul Normal 0.00-0.03 [facility] Comment on above: Performed By: #### C BC ####[facility] Dzouvfzxad5903 [place] [address]Dr. Erica Abarca IG % 0.4 % Normal 0.0-0.5 [facility] Comment on above: Performed By: #### C BC ####[facility] Jmnqdufnck254172 [address] [place], [place] [address]Dr. Erica Abarca LYMPH # 1.0 103/ul Critically low 1.2-3.8 [facility] Comment on above: Performed By: #### C BC ####[facility] Xpriqbkohf530[address] [place], [place] [address]Dr. Erica Abarca Lymphocytes/100 WBC (Bld) 17.2 % Critically low 20.5-60.0 [facility] Comment on above: Performed By: #### C BC ####[facility] Idgjzssamm1954 [place] [address]DrCandi Abarca MANUAL DIFF REQ NO Normal [facility] Comment on above: Performed By: #### C BC ####[facility] Pdwiotnore912[address] [place], [place] [address]DrCandi Abarca MCH (RBC) [Entitic mass] 24.4 pg Critically low 25.9-34.0 [facility] Comment on above: Performed By: #### C BC ####[facility] Hrfbejuajr56[address] [place], [place] [address]DrCandi Abarca MCHC (RBC) [Mass/Vol] 30.4 g/dL Normal 29.9-35.2 [facility] Comment on above: Performed By: #### C BC ####[facility] Awaxoguiyn624[address] [place], [place] [address]Dr. Erica Tevin MCV (RBC) [Entitic vol] 80.0 fL Normal 80.0-94.0 [facility] Comment on above: Performed By: #### C BC ####[facility] Nxoqczouty7103 [place] [address]Dr. Erica Abarca MONO # 0.4 103/ul Normal 0.3-0.8 [facility] Comment on above: Performed By: #### C BC ####[facility] Pjvftwbwsu87[address] [place], [place] [address]Dr. Erica Tevin Monocytes/100 WBC (Bld) 6.7 % Normal 1.7-12.0 [facility] Comment on above: Performed By: #### C BC ####[facility] Nsewhspxfa69[address] [place], [place] [address]Dr. Erica Abarca NEUT # 4.0 103/ul Normal 1.4-6.5 [facility] Comment on above: Performed By: #### C BC ####[facility] Tusdjxqwnq813[address] [place], [place] [address]Dr. Erica Tevin Neutrophils/100 WBC (Bld) 71.8 % Normal 43.0-75.0 [facility] Comment on above: Performed By: #### C BC ####[facility] Grdqxmruew5499[address] [place], [place] [address]Dr. Shiraemilia Tevin Platelet mean volume (Bld) [Entitic vol] 8.6 fL Critically low 9.5-13.5 [facility] Comment on above: Performed By: #### C BC ####[facility] Gwfpzbvibw847[address] [place], [place] [address]Dr. Shiraemilia Tevin PLT 190 103/ul Normal 150-450 [facility] Comment on above: Performed By: #### C BC ####[facility] Garbnkrshz045[address] [place], [place] [address]Dr. Erica Abarca RBC 3.90 106/ul Critically low 4.70-6.10 [facility] Comment on above: Performed By: #### C BC ####[facility] Inrhwpeuhe8023[address] [place], [place] [address]Dr. Erica Abarca WBC 5.5 103/ul Normal 4.0-11.0 [facility] Comment on above: Performed By: #### C BC ####[facility] Sszftubqqj5193 [place] [address]Dr. Erica Tevin POINT OF CARE GLUCOSEon 08-28 Glucose [Mass/Vol] 172 mg/dL Critically high 74-106 [facility] Comment on above: Performed By: #### P OCGLUC ####[facility] Pyvbhbkequ8681 [place] [address]Dr. Erica Abarca Glucose [Mass/Vol] 228 mg/dL Critically high 74-106 [facility] Comment on above: Performed By: #### P OCGLUC ####[facility] Jfnwotnvyh[address] [place], [place] [address]Dr. Erica Abarca Glucose [Mass/Vol] 315 mg/dL Critically high 74-106 [facility] Comment on above: Performed By: #### P OCGLUC ####[facility] Psfamvxuve25[address] [place], [place] [address]Dr. Erica Abarca PROF 14(COMP METB)on 023 Albumin [Mass/Vol] 2.9 g/dL Critically low 3.4-5.0 [facility] Comment on above: Performed By: #### C MP ####[facility] Ivnlxhiuez0435 [place] [address]Dr. Erica Tevin Albumin/Globulin [Mass ratio] 0.7 {ratio} Normal [facility] Comment on above: Performed By: #### C MP ####[facility] Ydjdvzkavk[address] [place], [place] [address]Dr. Erica Abarca ALP [Catalytic activity/Vol] 93 U/L Normal 46-116 [facility] Comment on above: Performed By: #### C MP ####[facility] Tyhtdfvlxy534[address] [place], [place] [address]Dr. Erica Abarca ALT [Catalytic activity/Vol] 19 U/L Normal 16-63 [facility] Comment on above: Performed By: #### C MP ####[facility] Usquhhnmes018172 [address] [place], [place] [address]Dr. Erica Abarca Anion gap [Moles/Vol] 9.2 mmol/L Normal [facility] Comment on above: Performed By: #### C MP ####[facility] Mjatfvmjzs027[address] [place], [place] [address]Dr. Erica Abarca AST [Catalytic activity/Vol] 21 U/L Normal 15-37 [facility] Comment on above: Performed By: #### C MP ####[facility] Iwwiqhbcpp6769[address] [place], [place] [address]Dr. Erica Tevin Bilirubin [Mass/Vol] 0.8 mg/dL Normal 0.2-1.0 [facility] Comment on above: Performed By: #### C MP ####[facility] Udrlzotzzx924[address] [place], [place] [address]Dr. Erica Abarca Calcium [Mass/Vol] 9.0 mg/dL Normal 8.5-10.1 [facility] Comment on above: Performed By: #### C MP ####[facility] Awftzfsvvb7416[address] [place], [place] [address]Dr. Erica Abarca Chloride [Moles/Vol] 100 mmol/L Normal 98-107 [facility] Comment on above: Performed By: #### C MP ####[facility] Typxmnaydl4433[address] [place], [place] [address]Dr. Erica Abarca CO2 [Moles/Vol] 32.6 mmol/L Critically high 21.0-32.0 [facility] Comment on above: Performed By: #### C MP ####[facility] Iwvjawdshi177[address] [place], [place] [address]Dr. Erica Abarca Creatinine [Mass/Vol] 1.39 mg/dL Critically high 0.70-1.30 [facility] Comment on above: Performed By: #### C MP ####[facility] Kyhmygwsfl05[address] [place], [place] [address]Dr. Erica bAarca EGFR-AF AUSTRIAN >60 Normal >=60 [facility] Comment on above: Performed By: #### C MP ####[facility] Abcnffwmrc0104[address] [place], [place] [address]Dr. Erica Abarca EGFR-NON AF AUSTRIAN 52 mL/min/1.73m2 Critically low >=60 [facility] Comment on above: Performed By: #### C MP ####[facility] Rzqgpkbonk1551 [place] [address]Dr. Shiraemilia Tevin Globulin (S) [Mass/Vol] 4.4 g/dL Normal [facility] Comment on above: Performed By: #### C MP ####[facility] Xojhzrtglh9922 [place] [address]Dr. Erica Abarca Glucose [Mass/Vol] 230 mg/dL Critically high 74-[address] [facility] Comment on above: Performed By: #### C MP ####[facility] Wbvohihhlc2349[address] [place], [place] [address]Dr. Erica Abarca Potassium [Moles/Vol] 3.8 mmol/L Normal 3.5-5.1 [facility] Comment on above: Performed By: #### C MP ####[facility] Thmoubjiqz2269[address] [place], [place] [address]Dr. Erica Abarca Protein [Mass/Vol] 7.3 g/dL Normal 6.4-8.2 [facility] Comment on above: Performed By: #### C MP ####[facility] Ylkrdrclpr2100[address] [place], [place] [address]Dr. Erica Abarca Sodium [Moles/Vol] 138 mmol/L Normal 136-145 [facility] Comment on above: Performed By: #### C MP ####[facility] Jvfmnjntdf688[address] [place], [place] [address]Dr. Erica Abarca Urea nitrogen [Mass/Vol] 31.0 mg/dL Critically high 7.0-18.0 [facility] Comment on above: Performed By: #### C MP ####[facility] Vxkeglball880[address] [place], [place] [address]Dr. Erica Abarca Urea nitrogen/Creatinine [Mass ratio] 22.3 mg/mg Normal [facility] Comment on above: Performed By: #### C MP ####[facility] Sfjdnnttvz5423[address] [place], [place] [address]Dr. Erica Abarca CBC AUTO DIFFon 09-22-2022 BASO # 0.0 103/ul Normal 0.0-0.1 [facility] Comment on above: Performed By: #### C BC ####[facility] Tbqhovhdvd9846 [place] [address]Dr. Erica Abarca Basophils/100 WBC (Bld) 0.5 % Normal 0.2-2.0 [facility] Comment on above: Performed By: #### C BC ####[facility] Ozfotdrmcu7289 [place] [address]Dr. Erica Abarca EO # 0.2 103/ul Normal 0.0-0.7 [facility] Comment on above: Performed By: #### C BC ####[facility] Teubupzvqs7189[address] [place], [place] [address]Dr. Erica Abarca Eosinophils/100 WBC (Bld) 3.6 % Normal 0.9-7.0 [facility] Comment on above: Performed By: #### C BC ####[facility] Vvzrshbmpa126[address] [place], [place] [address]Dr. Erica Abarca Erythrocyte distribution width (RBC) [Ratio] 19.1 % Critically high 11.0-15.0 [facility] Comment on above: Performed By: #### C BC ####[facility] Bzdfncvroh023[address] [place], [place] [address]Dr. Erica Abarca Hematocrit (Bld) [Volume fraction] 31.6 % Critically low 42.0-54.0 [facility] Comment on above: Performed By: #### C BC ####[facility] Bqfuzttkqr[address] [place], [place] [address]Dr. Erica Abarca Hemoglobin (Bld) [Mass/Vol] 9.4 g/dL Critically low 14.0-18.0 [facility] Comment on above: Performed By: #### C BC ####[facility] Fxtjqlduvs46[address] [place], [place] [address]Dr. Erica Tevin IG # 0.01 10e3/ul Normal 0.00-0.03 [facility] Comment on above: Performed By: #### C BC ####[facility] Mgjxksvljo9499 [place] [address]Dr. Erica Abarca IG % 0.2 % Normal 0.0-0.5 [facility] Comment on above: Performed By: #### C BC ####[facility] Cbcndsclxl0365 [place] [address]Dr. Erica Abarca LYMPH # 0.8 103/ul Critically low 1.2-3.8 [facility] Comment on above: Performed By: #### C BC ####[facility] Cqapyurgca4899 [place] [address]Dr. Erica Abarca Lymphocytes/100 WBC (Bld) 14.9 % Critically low 20.5-60.0 [facility] Comment on above: Performed By: #### C BC ####[facility] Otogwrvtzx3844 [place] [address]Dr. Erica Teivn MANUAL DIFF REQ NO Normal [facility] Comment on above: Performed By: #### C BC ####[facility] Orffyofhqf3675 [place] [address]Dr. Erica Abarca MCH (RBC) [Entitic mass] 24.2 pg Critically low 25.9-34.0 [facility] Comment on above: Performed By: #### C BC ####[facility] Feohxghxhz5614 [place] [address]Dr. Erica Abarca MCHC (RBC) [Mass/Vol] 29.7 g/dL Critically low 29.9-35.2 [facility] Comment on above: Performed By: #### C BC ####[facility] Znlpygsfcw1435 [place] [address]Dr. Erica Abarca MCV (RBC) [Entitic vol] 81.2 fL Normal 80.0-94.0 [facility] Comment on above: Performed By: #### C BC ####[facility] Ukfrlvuita6541 [place] [address]Dr. Erica Tevin MONO # 0.4 103/ul Normal 0.3-0.8 [facility] Comment on above: Performed By: #### C BC ####[facility] Pczrvswimh4404 [place] [address]Dr. Erica Abarca Monocytes/100 WBC (Bld) 6.5 % Normal 1.7-12.0 [facility] Comment on above: Performed By: #### C BC ####[facility] Wgcglzlccu8711 [place] [address]Dr. Erica Abarca NEUT # 4.1 103/ul Normal 1.4-6.5 [facility] Comment on above: Performed By: #### C BC ####[facility] Frlllzwdon8570 [place] [address]Dr. Erica Abarca Neutrophils/100 WBC (Bld) 74.3 % Normal 43.0-75.0 [facility] Comment on above: Performed By: #### C BC ####[facility] Czhkfaipix3838 [place] [address]Dr. Erica Abarca Platelet mean volume (Bld) [Entitic vol] 9.1 fL Critically low 9.5-13.5 [facility] Comment on above: Performed By: #### C BC ####[facility] Xqfzygaify2917 [place] [address]Dr. Erica Abarca PLT 214 103/ul Normal 150-450 [facility] Comment on above: Performed By: #### C BC ####[facility] Qtjhrdxczq0322 [place] [address]Dr. Erica Abarca RBC 3.89 106/ul Critically low 4.70-6.10 [facility] Comment on above: Performed By: #### C BC ####[facility] Gzeaqusfsu9052 [place] [address]Dr. Erica Abarca WBC 5.5 103/ul Normal 4.0-11.0 [facility] Comment on above: Performed By: #### C BC ####[facility] Ckwsrgrtgn3858 [place] [address]Dr. Erica Abarca POINT OF CARE GLUCOSEon 04-2 Glucose [Mass/Vol] 286 mg/dL Critically high 74-[address] [facility] Comment on above: Performed By: #### P OCGLUC ####[facility] Wncczcilhi4794 [place] [address]Dr. Erica Abarca Glucose [Mass/Vol] 239 mg/dL Critically high 74-106 [facility] Comment on above: Performed By: #### P OCGLUC ####[facility] Rygtmderka3709 [place] [address]Dr. Erica Abarca Glucose [Mass/Vol] 337 mg/dL Critically high -106 [facility] Comment on above: Performed By: #### P OCGLUC ####[facility] Ixrcllzlsf9740 [place] [address]Dr. Erica Abarca Glucose [Mass/Vol] 231 mg/dL Critically high -106 [facility] Comment on above: Performed By: #### P OCGLUC ####[facility] Npyfcxvtfj4448 [place] [address]Dr. Shiraemilia Abarca PROF 14(COMP METB)on 023 Albumin [Mass/Vol] 2.9 g/dL Critically low 3.4-5.0 [facility] Comment on above: Performed By: #### C MP ####[facility] Rszevalmyt4934 [place] [address]Dr. Erica Tevin Albumin/Globulin [Mass ratio] 0.6 {ratio} Normal [facility] Comment on above: Performed By: #### C MP ####[facility] Uysayalrtb0523 [place] [address]Dr. Erica Tevin ALP [Catalytic activity/Vol] 91 U/L Normal 46-116 [facility] Comment on above: Performed By: #### C MP ####[facility] Uxhtmpqvlc5704 [place] [address]Dr. Erica Tevin ALT [Catalytic activity/Vol] 19 U/L Normal 16-63 [facility] Comment on above: Performed By: #### C MP ####[facility] Irohihffck3876 [place] [address]Dr. Shiraemilia Tevin Anion gap [Moles/Vol] 9.4 mmol/L Normal [facility] Comment on above: Performed By: #### C MP ####[facility] Cekulufmpg2227 [place] [id number]. Erica Abarca AST [Catalytic activity/Vol] 20 U/L Normal 15-37 [facility] Comment on above: Performed By: #### C MP ####[facility] Xelarbejev8726 [place] [address]Dr. Erica Abarca Bilirubin [Mass/Vol] 0.8 mg/dL Normal 0.2-1.0 [facility] Comment on above: Performed By: #### C MP ####[facility] Odhsbjksvl4271 [place] [address]Dr. Erica Abarca Calcium [Mass/Vol] 8.9 mg/dL Normal 8.5-10.1 [facility] Comment on above: Performed By: #### C MP ####[facility] Thmynftpte2267 [place] [address]Dr. Erica Abarca Chloride [Moles/Vol] 99 mmol/L Normal 98-107 [facility] Comment on above: Performed By: #### C MP ####[facility] Gvahcokcxr7441 [place] [address]Dr. Erica Abarca CO2 [Moles/Vol] 33.6 mmol/L Critically high 21.0-32.0 [facility] Comment on above: Performed By: #### C MP ####[facility] Ysbmwzhubh6305 [place] [address]Dr. Erica Abarca Creatinine [Mass/Vol] 1.36 mg/dL Critically high 0.70-1.30 [facility] Comment on above: Performed By: #### C MP ####[facility] Cxrsvjkhyk4633 [place] [address]Dr. Erica Abarca EGFR-AF AUSTRIAN >60 Normal >=60 [facility] Comment on above: Performed By: #### C MP ####[facility] Yqwchnnkdk2251 [place] [address]Dr. Erica Abarca EGFR-NON AF AUSTRIAN 54 mL/min/1.73m2 Critically low >=60 [facility] Comment on above: Performed By: #### C MP ####[facility] Iygyycbjle1355 [place] [address]Dr. Erica Abarca Globulin (S) [Mass/Vol] 4.6 g/dL Normal [facility] Comment on above: Performed By: #### C MP ####[facility] Dorpabpndk6672 [place] [address]Dr. Erica Abarca Glucose [Mass/Vol] 223 mg/dL Critically high 74-106 [facility] Comment on above: Performed By: #### C MP ####[facility] Exllrwhxub[address] [place] [address]Dr. Erica Abarca Potassium [Moles/Vol] 4.0 mmol/L Normal 3.5-5.1 [facility] Comment on above: Performed By: #### C MP ####[facility] Eopnodmxia5[address] [place] [address]Dr. Erica Abarca Protein [Mass/Vol] 7.5 g/dL Normal 6.4-8.2 [facility] Comment on above: Performed By: #### C MP ####[facility] Snaseoamev[address] [place], [place] [address]Dr. Erica Abarca Sodium [Moles/Vol] 138 mmol/L Normal 136-145 [facility] Comment on above: Performed By: #### C MP ####[facility] Ouvcrrdpzy811[address] [place], [place] [address]Dr. Erica Abarca Urea nitrogen [Mass/Vol] 32.0 mg/dL Critically high 7.0-18.0 [facility] Comment on above: Performed By: #### C MP ####[facility] Otvfosbqsl14[address] [place] [address]Dr. Erica Abarca Urea nitrogen/Creatinine [Mass ratio] 23.5 mg/mg Normal [facility] Comment on above: Performed By: #### C MP ####[facility] Ilpqlwggri[address] [place] [address]Dr. Erica Abarca VANCOMYCIN TROUGHon 09-23-19 23 VANCOMYCIN TROUGH 14.8 ug/ml Normal 5.0-20.0 [facility] Comment on above: Performed By: #### V ANCT ####[facility] Ovugbjsacl6258 [place] [id number]. Erica Abarca CBC AUTO DIFFon 09-21-2022 BASO # 0.1 103/ul Normal 0.0-0.1 [facility] Comment on above: Performed By: #### C BC ####[facility] Hsdfwzwwsi[address] [place], [place] [id number]. Erica Tevin Basophils/100 WBC (Bld) 1.0 % Normal 0.2-2.0 [facility] Comment on above: Performed By: #### C BC ####[facility] Msoxaahuft[address] [place], [place] [address]Dr. Erica Abarca EO # 0.2 103/ul Normal 0.0-0.7 [facility] Comment on above: Performed By: #### C BC ####[facility] Hzwpkrjsro2213[address] [place], [place] [address]Dr. Shiraemilia Abarca Eosinophils/100 WBC (Bld) 4.3 % Normal 0.9-7.0 [facility] Comment on above: Performed By: #### C BC ####[facility] Ftugoshkjk7[address] [place], [place] [address]Dr. Erica Abarca Erythrocyte distribution width (RBC) [Ratio] 18.9 % Critically high 11.0-15.0 [facility] Comment on above: Performed By: #### C BC ####[facility] Unwnzkegdt9510[address] [place], [place] [address]Dr. Erica Abarca Hematocrit (Bld) [Volume fraction] 30.4 % Critically low 42.0-54.0 [facility] Comment on above: Performed By: #### C BC ####[facility] Xyxzlubidg033[address] [place], [place] [address]Dr. Erica Abarca Hemoglobin (Bld) [Mass/Vol] 9.0 g/dL Critically low 14.0-18.0 [facility] Comment on above: Performed By: #### C BC ####[facility] Qpyhdgyisk33[address] [place], [place] [address]Dr. Erica Abarca IG # 0.02 10e3/ul Normal 0.00-0.03 [facility] Comment on above: Performed By: #### C BC ####[facility] Kvcdxncrsc7553 [place] [id number]. Shiraemilia Abarca IG % 0.4 % Normal 0.0-0.5 [facility] Comment on above: Performed By: #### C BC ####[facility] Gozkthlnih3091 [place] [address]Dr. Erica Abarca LYMPH # 0.9 103/ul Critically low 1.2-3.8 [facility] Comment on above: Performed By: #### C BC ####[facility] Ccyidmbuqd3929 [place] [address]Dr. Erica Abarca Lymphocytes/100 WBC (Bld) 17.5 % Critically low 20.5-60.0 [facility] Comment on above: Performed By: #### C BC ####[facility] Ywnpkduftj5048 [place] [address]Dr. Erica Abarca MANUAL DIFF REQ NO Normal [facility] Comment on above: Performed By: #### C BC ####[facility] Gmfuvuruhn6013 [place] [phone]. Shiraemilia Abarca MCH (RBC) [Entitic mass] 23.9 pg Critically low 25.9-34.0 [facility] Comment on above: Performed By: #### C BC ####[facility] Upgdajvhix1443 [place] [phone]. Erica Abarca MCHC (RBC) [Mass/Vol] 29.6 g/dL Critically low 29.9-35.2 [facility] Comment on above: Performed By: #### C BC ####[facility] Meqezrkses39[address] [place] [address]Dr. Erica Abarca MCV (RBC) [Entitic vol] 80.9 fL Normal 80.0-94.0 [facility] Comment on above: Performed By: #### C BC ####[facility] Fmukrykoco6035 [place] [address]Dr. Erica Abarca MONO # 0.4 103/ul Normal 0.3-0.8 [facility] Comment on above: Performed By: #### C BC ####[facility] Crqxgipcax7923 [place] [address]Dr. Erica Abarca Monocytes/100 WBC (Bld) 7.4 % Normal 1.7-12.0 [facility] Comment on above: Performed By: #### C BC ####[facility] Xpmawmtckj9304 [place] [address]Dr. Erica Abarca NEUT # 3.4 103/ul Normal 1.4-6.5 [facility] Comment on above: Performed By: #### C BC ####[facility] Hgthlpqzbb0182 [place] [address]Dr. Erica Abarca Neutrophils/100 WBC (Bld) 69.4 % Normal 43.0-75.0 [facility] Comment on above: Performed By: #### C BC ####[facility] Kbdplmntwp3842 [place] [address]Dr. Erica Abarca Platelet mean volume (Bld) [Entitic vol] 8.6 fL Critically low 9.5-13.5 [facility] Comment on above: Performed By: #### C BC ####[facility] Vlrykatdde2065 [place] [address]Dr. Erica Abarca PLT 195 103/ul Normal 150-450 [facility] Comment on above: Performed By: #### C BC ####[facility] Hclarcztvw9552 [place] [address]Dr. Erica Abarca RBC 3.76 106/ul Critically low 4.70-6.10 [facility] Comment on above: Performed By: #### C BC ####[facility] Ihswfndenl0662 [place] [address]Dr. Erica Abarca WBC 4.9 103/ul Normal 4.0-11.0 [facility] Comment on above: Performed By: #### C BC ####[facility] Gstwyopzfi7125 [place] [address]Dr. Erica Abarca POINT OF CARE GLUCOSEon 04-2 Glucose [Mass/Vol] 236 mg/dL Critically high 74-106 [facility] Comment on above: Performed By: #### P OCGLUC ####[facility] Kqetunmdum[address] [place] [address]Dr. Erica Abarca Glucose [Mass/Vol] 300 mg/dL Critically high 74-106 [facility] Comment on above: Performed By: #### P OCGLUC ####[facility] Jnzzkhwnlz5774 [place] [address]Dr. Shiraemilia Abarca Glucose [Mass/Vol] 285 mg/dL Critically high 74-106 [facility] Comment on above: Performed By: #### P OCGLUC ####[facility] Yrlekojota6418 [place] [address]Dr. Erica Abarca Glucose [Mass/Vol] 210 mg/dL Critically high -106 [facility] Comment on above: Performed By: #### P OCGLUC ####[facility] Fyaszyfcwg2200 [place] [address]Dr. Erica Abarca PROF 14(COMP METB)on 023 Albumin [Mass/Vol] 2.7 g/dL Critically low 3.4-5.0 [facility] Comment on above: Performed By: #### C MP ####[facility] Bggmnrqemg96[address] [place], [place] [address]Dr. Erica Abarca Albumin/Globulin [Mass ratio] 0.6 {ratio} Normal [facility] Comment on above: Performed By: #### C MP ####[facility] Vucppqjztq9023 [place] [address]Dr. Erica Abarca ALP [Catalytic activity/Vol] 86 U/L Normal 46-116 [facility] Comment on above: Performed By: #### C MP ####[facility] Rxhznfunrz5166 [place] [address]Dr. Erica Abarca ALT [Catalytic activity/Vol] 13 U/L Critically low 16-63 [facility] Comment on above: Performed By: #### C MP ####[facility] Frjsowfhgv2977 [place] [address]Dr. Erica Abarca Anion gap [Moles/Vol] 11.1 mmol/L Normal [facility] Comment on above: Performed By: #### C MP ####[facility] Sfgnsutjwa1073 [place] [id number]. Erica Abarca AST [Catalytic activity/Vol] 17 U/L Normal 15-37 [facility] Comment on above: Performed By: #### C MP ####[facility] Sczjdkwisb8987 [place] [address]Dr. Erica Abarca Bilirubin [Mass/Vol] 0.7 mg/dL Normal 0.2-1.0 [facility] Comment on above: Performed By: #### C MP ####[facility] Dpxtinhtsa1674 [place] [address]Dr. Erica Abarca Calcium [Mass/Vol] 8.8 mg/dL Normal 8.5-10.1 [facility] Comment on above: Performed By: #### C MP ####[facility] Akroidoczj04[address] [place], [place] [address]Dr. Erica Abarca Chloride [Moles/Vol] 98 mmol/L Normal 98-107 [facility] Comment on above: Performed By: #### C MP ####[facility] Nbyujajvyh27[address] [place], [place] [address]Dr. Erica Abarca CO2 [Moles/Vol] 31.6 mmol/L Normal 21.0-32.0 [facility] Comment on above: Performed By: #### C MP ####[facility] Yiuoeauihl5844 [place] [address]Dr. Erica Abarca Creatinine [Mass/Vol] 1.32 mg/dL Critically high 0.70-1.30 [facility] Comment on above: Performed By: #### C MP ####[facility] Pbevgkewwz2993 [place] [address]Dr. Erica Tevin EGFR-AF AUSTRIAN >60 Normal >=60 [facility] Comment on above: Performed By: #### C MP ####[facility] Hxzujishtt2990 [place] [address]Dr. Shiraemilia Tevin EGFR-NON AF AUSTRIAN 56 mL/min/1.73m2 Critically low >=60 [facility] Comment on above: Performed By: #### C MP ####[facility] Xyjlaqbrhf3117 [place] [address]Dr. Erica Abarca Globulin (S) [Mass/Vol] 4.3 g/dL Normal [facility] Comment on above: Performed By: #### C MP ####[facility] Mlwsrddlhh8757 [place] [address]Dr. Erica Abarca Glucose [Mass/Vol] 212 mg/dL Critically high 74-106 [facility] Comment on above: Performed By: #### C MP ####[facility] Khdkwvvbrv6636 [place] [address]Dr. Erica Abarca Potassium [Moles/Vol] 3.7 mmol/L Normal 3.5-5.1 [facility] Comment on above: Performed By: #### C MP ####[facility] Qdxkvmqwsb240[address] [place], [place] [address]Dr. Erica Abarca Protein [Mass/Vol] 7.0 g/dL Normal 6.4-8.2 [facility] Comment on above: Performed By: #### C MP ####[facility] Yzicwlhiww12[address] [place], [place] [address]Dr. Erica Abarca Sodium [Moles/Vol] 137 mmol/L Normal 136-145 [facility] Comment on above: Performed By: #### C MP ####[facility] Npqmjtnwrp4149[address] [place], [place] [address]Dr. Erica Abarca Urea nitrogen [Mass/Vol] 30.0 mg/dL Critically high 7.0-18.0 [facility] Comment on above: Performed By: #### C MP ####[facility] Hlnpfwjilu205[address] [place], [place] [address]Dr. Erica Abarca Urea nitrogen/Creatinine [Mass ratio] 22.7 mg/mg Normal [facility] Comment on above: Performed By: #### C MP ####[facility] Adqmlfzxub0350[address] [place], [place] [address]Dr. Erica Tevin CBC AUTO DIFFon 09-20-2022 BASO # 0.0 103/ul Normal 0.0-0.1 [facility] Comment on above: Performed By: #### C BC ####[facility] Vzzdznzugn7724 [place] [id number]. Erica Abarca Basophils/100 WBC (Bld) 0.6 % Normal 0.2-2.0 [facility] Comment on above: Performed By: #### C BC ####[facility] Fklnuwdpwq2004[address] [place], [place] [address]Dr. Erica Abarca EO # 0.2 103/ul Normal 0.0-0.7 [facility] Comment on above: Performed By: #### C BC ####[facility] Jygkohlbae32[address] [place], [place] [address]Dr. Erica Abarca Eosinophils/100 WBC (Bld) 4.0 % Normal 0.9-7.0 [facility] Comment on above: Performed By: #### C BC ####[facility] Oyearbbhra860[address] [place], [place] [address]Dr. Erica Abarca Erythrocyte distribution width (RBC) [Ratio] 19.0 % Critically high 11.0-15.0 [facility] Comment on above: Performed By: #### C BC ####[facility] Jzkguhbpsm01[address] [place], [place] [address]Dr. Erica Abarca Hematocrit (Bld) [Volume fraction] 30.9 % Critically low 42.0-54.0 [facility] Comment on above: Performed By: #### C BC ####[facility] Xlhqfokdxl[address] [place], [place] [address]Dr. Erica Abarca Hemoglobin (Bld) [Mass/Vol] 9.2 g/dL Critically low 14.0-18.0 [facility] Comment on above: Performed By: #### C BC ####[facility] Keveriwcca[address] [place], [place] [address]Dr. Erica Abarca IG # 0.02 10e3/ul Normal 0.00-0.03 [facility] Comment on above: Performed By: #### C BC ####[facility] Afmnojfyuz7[address] [place], [place] [address]Dr. Erica Abarca IG % 0.4 % Normal 0.0-0.5 [facility] Comment on above: Performed By: #### C BC ####[facility] Dfagdrjdxm7932 [place] [id number] Abarca LYMPH # 0.9 103/ul Critically low 1.2-3.8 [facility] Comment on above: Performed By: #### C BC ####[facility] Lqzyfhtfgr9461 [place] [address]DrCandi Abarca Lymphocytes/100 WBC (Bld) 17.8 % Critically low 20.5-60.0 [facility] Comment on above: Performed By: #### C BC ####[facility] Cewxwqiczy4513 [place] [id number] Abarca MANUAL DIFF REQ NO Normal [facility] Comment on above: Performed By: #### C BC ####[facility] Wgwratwstj6712 [place] [id number] Abarca MCH (RBC) [Entitic mass] 24.1 pg Critically low 25.9-34.0 [facility] Comment on above: Performed By: #### C BC ####[facility] Mztwjstblm2894 [place] [address]Dr. Erica Abarca MCHC (RBC) [Mass/Vol] 29.8 g/dL Critically low 29.9-35.2 [facility] Comment on above: Performed By: #### C BC ####[facility] Nkfbqvcdmo1714 [place] [id number] Abarca MCV (RBC) [Entitic vol] 80.9 fL Normal 80.0-94.0 [facility] Comment on above: Performed By: #### C BC ####[facility] Bgwcbzjsop2841 [place] [address]DrCandi Abarca MONO # 0.5 103/ul Normal 0.3-0.8 [facility] Comment on above: Performed By: #### C BC ####[facility] Cfdnhynkdo6397 [place] [address]DrCandi Abarca Monocytes/100 WBC (Bld) 9.3 % Normal 1.7-12.0 [facility] Comment on above: Performed By: #### C BC ####[facility] Iuboyqpzih5978 [place] [address]Dr. Erica Abarca NEUT # 3.6 103/ul Normal 1.4-6.5 [facility] Comment on above: Performed By: #### C BC ####[facility] Wigcvzxhyg4232 [place] [address]Dr. Erica Abarca Neutrophils/100 WBC (Bld) 67.9 % Normal 43.0-75.0 [facility] Comment on above: Performed By: #### C BC ####[facility] Beefwllont9697 [place] [address]Dr. Erica Abarca Platelet mean volume (Bld) [Entitic vol] 9.0 fL Critically low 9.5-13.5 [facility] Comment on above: Performed By: #### C BC ####[facility] Ymytviudnv9464 [place] [address]Dr. Erica Abarca PLT 212 103/ul Normal 150-450 [facility] Comment on above: Performed By: #### C BC ####[facility] Xurzqpokhc5460 [place] [address]Dr. Erica Abarca RBC 3.82 106/ul Critically low 4.70-6.10 [facility] Comment on above: Performed By: #### C BC ####[facility] Imhetkdpwj6999 [place] [address]Dr. Erica Abarca WBC 5.3 103/ul Normal 4.0-11.0 [facility] Comment on above: Performed By: #### C BC ####[facility] Nkzssfeohl7016 [place] [id number]. Erica Abarca POINT OF CARE GLUCOSEon 08-28 Glucose [Mass/Vol] 272 mg/dL Critically high 74-106 [facility] Comment on above: Performed By: #### P OCGLUC ####[facility] Rdfxzndoir8204 [place] [id number]. Erica Tevin Glucose [Mass/Vol] 258 mg/dL Critically high 74-106 [facility] Comment on above: Performed By: #### P OCGLUC ####[facility] Hpljstqusq4100 [place] [address]Dr. Erica Abarca Glucose [Mass/Vol] 315 mg/dL Critically high 74-106 [facility] Comment on above: Performed By: #### P OCGLUC ####[facility] Mwwvefurov75[address] [place], [place] [address]Dr. Erica Abarca PROF 14(COMP METB)on 023 Albumin [Mass/Vol] 2.7 g/dL Critically low 3.4-5.0 [facility] Comment on above: Performed By: #### C MP ####[facility] Evfftvstar670[address] [place], [place] [address]Dr. Erica Abarca Albumin/Globulin [Mass ratio] 0.6 {ratio} Normal [facility] Comment on above: Performed By: #### C MP ####[facility] Nccahauixc9[address] [place], [place] [address]Dr. Erica Abarca ALP [Catalytic activity/Vol] 87 U/L Normal 46-116 [facility] Comment on above: Performed By: #### C MP ####[facility] Xqydgyepkm679[address] [place], [place] [address]Dr. Erica Abarca ALT [Catalytic activity/Vol] 14 U/L Critically low 16-63 [facility] Comment on above: Performed By: #### C MP ####[facility] Lbkuzatlda46[address] [place], [place] [address]Dr. Erica Abarca Anion gap [Moles/Vol] 7.4 mmol/L Normal [facility] Comment on above: Performed By: #### C MP ####[facility] Wxmuyffmik255[address] [place], [place] [address]Dr. Erica Abarca AST [Catalytic activity/Vol] 15 U/L Normal 15-37 [facility] Comment on above: Performed By: #### C MP ####[facility] Awhpbashuj3667[address] [place], [place] [address]Dr. Erica Abarca Bilirubin [Mass/Vol] 0.8 mg/dL Normal 0.2-1.0 [facility] Comment on above: Performed By: #### C MP ####[facility] Jijnrcrgub3223 [place] [address]Dr. Erica Abarca Calcium [Mass/Vol] 8.7 mg/dL Normal 8.5-10.1 [facility] Comment on above: Performed By: #### C MP ####[facility] Qtihjfxcaa4050 [place] [address]Dr. Erica Tevin Chloride [Moles/Vol] 99 mmol/L Normal 98-107 [facility] Comment on above: Performed By: #### C MP ####[facility] Cvkoevpmdd0581 [place] [address]Dr. Erica Abarca CO2 [Moles/Vol] 32.3 mmol/L Critically high 21.0-32.0 [facility] Comment on above: Performed By: #### C MP ####[facility] Gxcwpgseul634[address] [place], [place] [address]Dr. Erica Tevin Creatinine [Mass/Vol] 1.44 mg/dL Critically high 0.70-1.30 [facility] Comment on above: Performed By: #### C MP ####[facility] Qvjqvunzdd450[address] [place], [place] [address]Dr. Erica Tevin EGFR-AF AUSTRIAN >60 Normal >=60 [facility] Comment on above: Performed By: #### C MP ####[facility] Apppmdgslc7397 [place] [address]Dr. Shiraemilia Tevin EGFR-NON AF AUSTRIAN 50 mL/min/1.73m2 Critically low >=60 [facility] Comment on above: Performed By: #### C MP ####[facility] Hzeppdraas1485 [place] [address]Dr. Erica Abarca Globulin (S) [Mass/Vol] 4.4 g/dL Normal [facility] Comment on above: Performed By: #### C MP ####[facility] Ewoilohpdh1402 [place] [address]Dr. Erica Abarca Glucose [Mass/Vol] 194 mg/dL Critically high 74-106 [facility] Comment on above: Performed By: #### C MP ####[facility] Diglpzaesd7260 [place] [address]Dr. Erica Tevin Potassium [Moles/Vol] 3.7 mmol/L Normal 3.5-5.1 [facility] Comment on above: Performed By: #### C MP ####[facility] Nxutkodjzd823[address] [place], [place] [address]Dr. Erica Tevin Protein [Mass/Vol] 7.1 g/dL Normal 6.4-8.2 [facility] Comment on above: Performed By: #### C MP ####[facility] Oleovmfsfq538[address] [place], [place] [address]Dr. Erica Abarca Sodium [Moles/Vol] 135 mmol/L Critically low 136-145 [facility] Comment on above: Performed By: #### C MP ####[facility] Apollxdaaj8037[address] [place], [place] [address]Dr. Shiraemilia Abarca Urea nitrogen [Mass/Vol] 30.0 mg/dL Critically high 7.0-18.0 [facility] Comment on above: Performed By: #### C MP ####[facility] Jkuyrdjawe11[address] [place], [place] [address]Dr. Shiraemilia Abarca Urea nitrogen/Creatinine [Mass ratio] 20.8 mg/mg Normal [facility] Comment on above: Performed By: #### C MP ####[facility] Yqqvjthklq729[address] [place], [place] [address]Dr. Erica Tevin CBC AUTO DIFFon 09-19-2022 BASO # 0.0 103/ul Normal 0.0-0.1 [facility] Comment on above: Performed By: #### C BC ####[facility] Galikmexno126[address] [place], [place] [address]Dr. Shiraemilia Abarca Basophils/100 WBC (Bld) 0.8 % Normal 0.2-2.0 [facility] Comment on above: Performed By: #### C BC ####[facility] Rxyrystkwi358[address] [place], [place] [address]Dr. Erica Abarca EO # 0.2 103/ul Normal 0.0-0.7 [facility] Comment on above: Performed By: #### C BC ####[facility] Maljnsulyl3034 [place] [address]Dr. Erica Abarca Eosinophils/100 WBC (Bld) 3.4 % Normal 0.9-7.0 [facility] Comment on above: Performed By: #### C BC ####[facility] Dhouxjdriu511[address] [place], [place] [address]Dr. Shiraemilia Tevin Erythrocyte distribution width (RBC) [Ratio] 18.7 % Critically high 11.0-15.0 [facility] Comment on above: Performed By: #### C BC ####[facility] Rlxfatfmeq16[address] [place], [place] [address]Dr. Shiraemilia Abarca Hematocrit (Bld) [Volume fraction] 29.9 % Critically low 42.0-54.0 [facility] Comment on above: Performed By: #### C BC ####[facility] Tvktexmrbq724[address] [place], [place] [address]Dr. Shiraemilia Abarca Hemoglobin (Bld) [Mass/Vol] 8.9 g/dL Critically low 14.0-18.0 [facility] Comment on above: Performed By: #### C BC ####[facility] Zqgijvwspl099[address] [place], [place] [address]Dr. Erica Abarca IG # 0.03 10e3/ul Normal 0.00-0.03 [facility] Comment on above: Performed By: #### C BC ####[facility] Xmpegnzcsc394[address] [place], [place] [address]Dr. Erica Abarca IG % 0.6 % Critically high 0.0-0.5 [facility] Comment on above: Performed By: #### C BC ####[facility] Duiyjhmukq876[address] [place], [place] [address]Dr. Erica Abarca LYMPH # 0.9 103/ul Critically low 1.2-3.8 [facility] Comment on above: Performed By: #### C BC ####[facility] Fqdpszzseu78217[address] [place], [place] [address]Dr. Erica Abarca Lymphocytes/100 WBC (Bld) 16.2 % Critically low 20.5-60.0 [facility] Comment on above: Performed By: #### C BC ####[facility] Mmonbatxfm5150 [place] [address]DrCandi Abarca MANUAL DIFF REQ NO Normal [facility] Comment on above: Performed By: #### C BC ####[facility] Oxvbyekmif6752 [place] [id number] Abarca MCH (RBC) [Entitic mass] 23.9 pg Critically low 25.9-34.0 [facility] Comment on above: Performed By: #### C BC ####[facility] Goxttsgeqx436[address] [place], [place] [address]DrCandi Abarca MCHC (RBC) [Mass/Vol] 29.8 g/dL Critically low 29.9-35.2 [facility] Comment on above: Performed By: #### C BC ####[facility] Rwqtczochb54[address] [place], [place] [address]DrCandi Abarca MCV (RBC) [Entitic vol] 80.4 fL Normal 80.0-94.0 [facility] Comment on above: Performed By: #### C BC ####[facility] Haqyzfdffe8[address] [place], [place] [address]DrCandi Abarca MONO # 0.5 103/ul Normal 0.3-0.8 [facility] Comment on above: Performed By: #### C BC ####[facility] Uxahotodzx274[address] [place], [place] [address]DrCandi Abarca Monocytes/100 WBC (Bld) 9.2 % Normal 1.7-12.0 The [facility] Comment on above: Performed By: #### C BC ####[facility] Y[address]qyqrczq[address] [place], [place] [address]DrCandi Abarca NEUT # 3.7 103/ul Normal 1.4-6.5 [facility] Comment on above: Performed By: #### C BC ####[facility] Fnntiqpang20[address] [place], [place] [address]DrCandi Abarca Neutrophils/100 WBC (Bld) 69.8 % Normal 43.0-75.0 [facility] Comment on above: Performed By: #### C BC ####[facility] Budrafmflp29[address] [place] [id number]. Erica Abarca Platelet mean volume (Bld) [Entitic vol] 8.6 fL Critically low 9.5-13.5 [facility] Comment on above: Performed By: #### C BC ####[facility] [address]srkbjnrx[address] [place] [address]Dr. Erica Abarca PLT 183 103/ul Normal 150-450 [facility] Comment on above: Performed By: #### C BC ####[facility] Vytckgmuhp61[address] [place] [address]Dr. Erica Abarca RBC 3.72 106/ul Critically low 4.70-6.10 [facility] Comment on above: Performed By: #### C BC ####[facility] Vyubyuzdix264[address] [place] [address]Dr. Erica Abarca WBC 5.3 103/ul Normal 4.0-11.0 [facility] Comment on above: Performed By: #### C BC ####[facility] Hynrpkyias[address] [place], [place] [address]Dr. Erica Abarca POINT OF CARE GLUCOSEon 08-28 Glucose [Mass/Vol] 240 mg/dL Critically high 74-106 [facility] Comment on above: Performed By: #### P OCGLUC ####[facility] Yghfyelirj76[address] [place] [address]Dr. Erica Abarca Glucose [Mass/Vol] 209 mg/dL Critically high 74-106 [facility] Comment on above: Performed By: #### P OCGLUC ####[facility] Jkcokkhidi[address] [place], [place] [address]Dr. Erica Abarca Glucose [Mass/Vol] 211 mg/dL Critically high 74-106 [facility] Comment on above: Performed By: #### P OCGLUC ####[facility] Hhzvpfcugy39[address] [place], [place] [address]Dr. Erica Abarca Glucose [Mass/Vol] 163 mg/dL Critically high 74-106 [facility] Comment on above: Performed By: #### P OCGLUC ####[facility] Tuhghjxtjf5[address] [place], [place] [address]Dr. Erica Abarca Glucose [Mass/Vol] 221 mg/dL Critically high 74-106 [facility] Comment on above: Performed By: #### P OCGLUC ####[facility] Gzzrfvkjdi701[address] [place], [place] [address]Dr. Erica Abarca PROF 14(COMP METB)on 023 Albumin [Mass/Vol] 2.6 g/dL Critically low 3.4-5.0 [facility] Comment on above: Performed By: #### C MP ####[facility] Mhmjsrsgck480[address] [place], [place] [address]Dr. Erica Abarca Albumin/Globulin [Mass ratio] 0.6 {ratio} Normal [facility] Comment on above: Performed By: #### C MP ####[facility] Gmthjbymxa8037[address] [place], [place] [address]Dr. Erica Abarca ALP [Catalytic activity/Vol] 85 U/L Normal 46-116 [facility] Comment on above: Performed By: #### C MP ####[facility] Mlqvabxhka209[address] [place], [place] [address]Dr. Erica Abarac ALT [Catalytic activity/Vol] 12 U/L Critically low 16-63 [facility] Comment on above: Performed By: #### C MP ####[facility] Tpvqwvldds2624[address] [place], [place] [address]Dr. Erica Abarca Anion gap [Moles/Vol] 8.0 mmol/L Normal [facility] Comment on above: Performed By: #### C MP ####[facility] Ywwwffexic9537[address] [place], [place] [address]Dr. Erica Abarca AST [Catalytic activity/Vol] 16 U/L Normal 15-37 [facility] Comment on above: Performed By: #### C MP ####[facility] Lqwgdoraxs6929[address] [place], [place] [address]Dr. Erica Abarca Bilirubin [Mass/Vol] 0.9 mg/dL Normal 0.2-1.0 [facility] Comment on above: Performed By: #### C MP ####[facility] Fcmuzzyeby5469 [place] [address]Dr. Erica Abarca Calcium [Mass/Vol] 8.8 mg/dL Normal 8.5-10.1 [facility] Comment on above: Performed By: #### C MP ####[facility] Ovceohqdmc7634[address] [place], [place] [address]Dr. Erica Tevin Chloride [Moles/Vol] 99 mmol/L Normal 98-107 [facility] Comment on above: Performed By: #### C MP ####[facility] Midtqzyboe8[address] [place], [place] [address]Dr. Erica Abarca CO2 [Moles/Vol] 31.8 mmol/L Normal 21.0-32.0 [facility] Comment on above: Performed By: #### C MP ####[facility] Hpybinraxx712[address] [place], [place] [address]Dr. Erica Tevin Creatinine [Mass/Vol] 1.43 mg/dL Critically high 0.70-1.30 [facility] Comment on above: Performed By: #### C MP ####[facility] Bnuurgygor1118[address] [place], [place] [address]Dr. Erica Tevin EGFR-AF AUSTRIAN >60 Normal >=60 [facility] Comment on above: Performed By: #### C MP ####[facility] Jvyxnwtmia248[address] [place], [place] [address]Dr. Shiraemilia Tevin EGFR-NON AF AUSTRIAN 51 mL/min/1.73m2 Critically low >=60 [facility] Comment on above: Performed By: #### C MP ####[facility] Zrtqdwqsgf457[address] [place], [place] [address]Dr. Erica Abarca Globulin (S) [Mass/Vol] 4.3 g/dL Normal [facility] Comment on above: Performed By: #### C MP ####[facility] Uhiupxkefr0638[address] [place], [place] [address]Dr. Erica Abarca Glucose [Mass/Vol] 158 mg/dL Critically high 74-[address] [facility] Comment on above: Performed By: #### C MP ####[facility] Bofqanvpiw36[address] [place] [address]Dr. Erica Abarca Potassium [Moles/Vol] 3.8 mmol/L Normal 3.5-5.1 [facility] Comment on above: Performed By: #### C MP ####[facility] Rmwjytmfuu3060[address] [place], [place] [address]Dr. Erica Abarca Protein [Mass/Vol] 6.9 g/dL Normal 6.4-8.2 [facility] Comment on above: Performed By: #### C MP ####[facility] Irmnlcnvnb5875[address] [place], [place] [address]Dr. Erica Abarca Sodium [Moles/Vol] 135 mmol/L Critically low 136-145 [facility] Comment on above: Performed By: #### C MP ####[facility] Vipndelqpl50[address] [place], [place] [address]Dr. Erica Abarca Urea nitrogen [Mass/Vol] 24.0 mg/dL Critically high 7.0-18.0 [facility] Comment on above: Performed By: #### C MP ####[facility] Ahsoytlwnq0020[address] [place], [place] [address]Dr. Erica Abarca Urea nitrogen/Creatinine [Mass ratio] 16.8 mg/mg Normal [facility] Comment on above: Performed By: #### C MP ####[facility] Gcwbmamjrj2929[address] [place], [place] [address]Dr. Erica Abarca CBC AUTO DIFFon 09-18-2022 BASO # 0.0 103/ul Normal 0.0-0.1 [facility] Comment on above: Performed By: #### C BC ####[facility] Jzooumeqjw8828[address] [place], [place] [address]Dr. Erica Abarca Basophils/100 WBC (Bld) 0.8 % Normal 0.2-2.0 [facility] Comment on above: Performed By: #### C BC ####[facility] Cxlctrliau2534[address] [place], [place] [address]Dr. Erica Abarca EO # 0.1 103/ul Normal 0.0-0.7 [facility] Comment on above: Performed By: #### C BC ####[facility] Txpdhfprvg[address] [place] [address]Dr. Erica Abarca Eosinophils/100 WBC (Bld) 2.0 % Normal 0.9-7.0 [facility] Comment on above: Performed By: #### C BC ####[facility] Fzjqyevwik9434 [place] [address]Dr. Erica Abarca Erythrocyte distribution width (RBC) [Ratio] 19.1 % Critically high 11.0-15.0 [facility] Comment on above: Performed By: #### C BC ####[facility] Yorskafqzp953[address] [place], [place] [address]Dr. Erica Abarca Hematocrit (Bld) [Volume fraction] 26.6 % Critically low 42.0-54.0 [facility] Comment on above: Performed By: #### C BC ####[facility] Eorqotvxhm490[address] [place], [place] [address]Dr. Erica Abarca Hemoglobin (Bld) [Mass/Vol] 7.8 g/dL Critically low 14.0-18.0 [facility] Comment on above: Performed By: #### C BC ####[facility] Xamvckrudi280[address] [place], [place] [address]Dr. Erica Abarca IG # 0.01 10e3/ul Normal 0.00-0.03 [facility] Comment on above: Performed By: #### C BC ####[facility] Vzjjgnypko84[address] [place] [address]Dr. Erica Abarca IG % 0.3 % Normal 0.0-0.5 [facility] Comment on above: Performed By: #### C BC ####[facility] Fmhhbnccss9414[address] [place], [place] [address]Dr. Erica Abarca LYMPH # 0.7 103/ul Critically low 1.2-3.8 [facility] Comment on above: Performed By: #### C BC ####[facility] Yflcrqlcsx9[address] [place], [place] [address]Dr. Erica Abarca Lymphocytes/100 WBC (Bld) 20.4 % Critically low 20.5-60.0 [facility] Comment on above: Performed By: #### C BC ####[facility] Vxwwltbmtn4593 [place] [address]Dr. Erica Abarca MANUAL DIFF REQ NO Normal [facility] Comment on above: Performed By: #### C BC ####[facility] Yzcprxbppf0298 [place] [address]Dr. Erica Abarca MCH (RBC) [Entitic mass] 23.6 pg Critically low 25.9-34.0 [facility] Comment on above: Performed By: #### C BC ####[facility] Svlxzpurqa0525[address] [place], [place] [address]Dr. Erica Abarca MCHC (RBC) [Mass/Vol] 29.3 g/dL Critically low 29.9-35.2 [facility] Comment on above: Performed By: #### C BC ####[facility] Pywzibbxai6620[address] [place], [place] [address]Dr. Erica Abarca MCV (RBC) [Entitic vol] 80.6 fL Normal 80.0-94.0 [facility] Comment on above: Performed By: #### C BC ####[facility] Jpuasqdbzw395[address] [place], [place] [address]Dr. Erica Abarca MONO # 0.4 103/ul Normal 0.3-0.8 [facility] Comment on above: Performed By: #### C BC ####[facility] Gudaawmiqn3[address] [place], [place] [address]Dr. Erica Abarca Monocytes/100 WBC (Bld) 11.0 % Normal 1.7-12.0 [facility] Comment on above: Performed By: #### C BC ####[facility] Dhbpboxivz513[address] [place], [place] [address]Dr. Erica Abarca NEUT # 2.3 103/ul Normal 1.4-6.5 [facility] Comment on above: Performed By: #### C BC ####[facility] Sozaqrrcnf6[address] [place], [place] [address]Dr. Erica Abarca Neutrophils/100 WBC (Bld) 65.5 % Normal 43.0-75.0 [facility] Comment on above: Performed By: #### C BC ####[facility] Tfkukkaopc99[address] [place] [address]Dr. Erica Abarca Platelet mean volume (Bld) [Entitic vol] 8.6 fL Critically low 9.5-13.5 [facility] Comment on above: Performed By: #### C BC ####[facility] Hsvgzabdlp8405 [place] [address]Dr. Erica Abarca PLT 195 103/ul Normal 150-450 [facility] Comment on above: Performed By: #### C BC ####[facility] Yledumahbq5384 [place] [address]Dr. Erica Abarca RBC 3.30 106/ul Critically low 4.70-6.10 [facility] Comment on above: Performed By: #### C BC ####[facility] Enrqgapojz7349 [place] [address]Dr. Erica Abarca WBC 3.5 103/ul Critically low 4.0-11.0 [facility] Comment on above: Performed By: #### C BC ####[facility] Wfksjccowf10[address] [place] [address]Dr. Erica Abarca POINT OF CARE GLUCOSEon 08-28 Glucose [Mass/Vol] 244 mg/dL Critically high 74-106 [facility] Comment on above: Performed By: #### P OCGLUC ####[facility] Avxxsonwrq2700 [place] [address]Dr. Erica Abarca Glucose [Mass/Vol] 260 mg/dL Critically high 74-106 [facility] Comment on above: Performed By: #### P OCGLUC ####[facility] Fzpzuvkwuz4222 [place] [address]Dr. Erica Abarca PRBC LEUKOREDUCEDon 09-19-19 23 PRBC LEUKOREDUCED Normal [facility] Comment on above: Performed By: #### P RBC ####[facility] Ouekmunwii5380[address] [place], [place] [address]Dr. Erica Abarca PROF 14(COMP METB)on 023 Albumin [Mass/Vol] 2.6 g/dL Critically low 3.4-5.0 [facility] Comment on above: Performed By: #### C MP ####[facility] Yoneqhbjyg546[address] [place], [place] [address]Dr. Erica Abarca Albumin/Globulin [Mass ratio] 0.6 {ratio} Normal [facility] Comment on above: Performed By: #### C MP ####[facility] Qmxqkjoeoq8109[address] [place], [place] [address]Dr. Erica Abarca ALP [Catalytic activity/Vol] 82 U/L Normal 46-116 [facility] Comment on above: Performed By: #### C MP ####[facility] Psyxqojcus3901[address] [place], [place] [address]Dr. Erica Abarca ALT [Catalytic activity/Vol] 14 U/L Critically low 16-63 [facility] Comment on above: Performed By: #### C MP ####[facility] Wlfkrbissl1567[address] [place], [place] [address]Dr. Erica Abarca Anion gap [Moles/Vol] 8.6 mmol/L Normal [facility] Comment on above: Performed By: #### C MP ####[facility] Lsgbenbjyq414[address] [place], [place] [address]Dr. Erica Abarca AST [Catalytic activity/Vol] 16 U/L Normal 15-37 [facility] Comment on above: Performed By: #### C MP ####[facility] Brftkpdxsj41977[address] [place], [place] [address]Dr. Erica Abarca Bilirubin [Mass/Vol] 0.7 mg/dL Normal 0.2-1.0 [facility] Comment on above: Performed By: #### C MP ####[facility] Leyjssebec8[address] [place], [place] [address]Dr. Erica Abarca Calcium [Mass/Vol] 8.7 mg/dL Normal 8.5-10.1 [facility] Comment on above: Performed By: #### C MP ####[facility] Cjhjazsczv3118 [place] [id number]. Erica Abarca Chloride [Moles/Vol] 101 mmol/L Normal 98-107 [facility] Comment on above: Performed By: #### C MP ####[facility] Mhiqktmuwa9407 [place] [address]Dr. Erica Abarca CO2 [Moles/Vol] 31.9 mmol/L Normal 21.0-32.0 [facility] Comment on above: Performed By: #### C MP ####[facility] Ylkgfdfdqe1883 [place] [address]Dr. Erica Abarca Creatinine [Mass/Vol] 1.61 mg/dL Critically high 0.70-1.30 [facility] Comment on above: Performed By: #### C MP ####[facility] Pxbilvqfcb280[address] [place], [place] [address]Dr. Erica Tevin EGFR-AF AUSTRIAN 54 mL/min/1.73m2 Critically low >=60 [facility] Comment on above: Performed By: #### C MP ####[facility] Ywhudofdyr[address] [place], [place] [address]Dr. Erica Tevin EGFR-NON AF AUSTRIAN 44 mL/min/1.73m2 Critically low >=60 [facility] Comment on above: Performed By: #### C MP ####[facility] Gzlezhzayy9[address] [place] [address]Dr. Erica Tevin Globulin (S) [Mass/Vol] 4.3 g/dL Normal [facility] Comment on above: Performed By: #### C MP ####[facility] Zoxoxlbehe6279 [place] [address]Dr. Erica Tevin Glucose [Mass/Vol] 185 mg/dL Critically high 74-[address] [facility] Comment on above: Performed By: #### C MP ####[facility] Kjatpnmkpf2245 [place] [address]Dr. Erica Tevin Potassium [Moles/Vol] 3.5 mmol/L Normal 3.5-5.1 [facility] Comment on above: Performed By: #### C MP ####[facility] Qvvnrvhftd7419 [place] [address]Dr. Erica Abarca Protein [Mass/Vol] 6.9 g/dL Normal 6.4-8.2 [facility] Comment on above: Performed By: #### C MP ####[facility] Dmxtyvvsjt2595 [place] [address]Dr. Erica Abarca Sodium [Moles/Vol] 138 mmol/L Normal 136-145 [facility] Comment on above: Performed By: #### C MP ####[facility] Lrwmoqumwm6927 [place] [address]Dr. Erica Abarca Urea nitrogen [Mass/Vol] 26.0 mg/dL Critically high 7.0-18.0 [facility] Comment on above: Performed By: #### C MP ####[facility] Heelyphcoc4801 [place] [address]Dr. Erica Abarca Urea nitrogen/Creatinine [Mass ratio] 16.1 mg/mg Normal [facility] Comment on above: Performed By: #### C MP ####[facility] Yekwnbkxgm[address] [place], [place] [address]Dr. Erica Abarca TYPE AND SCREENon 09-18-2022 TYPE AND SCREEN Negative Normal [facility] Comment on above: Performed By: #### T NS ####[facility] Dagfdhwguu24[address] [place], [place] [address]Dr. Erica Abarca CBC AUTO DIFFon 09-17-2022 Basophils/100 WBC (Bld) 0.5 % Normal 0.2-2.0 [facility] Comment on above: Performed By: #### C BC ####[facility] Rysicaabgb5[address] [place], [place] [address]Dr. Erica Abarca Eosinophils/100 WBC (Bld) 1.5 % Normal 0.9-7.0 [facility] Comment on above: Performed By: #### C BC ####[facility] Xizwsjcrvc27[address] [place], [place] [address]Dr. Erica Abarca Erythrocyte distribution width (RBC) [Ratio] 19.1 % Critically high 11.0-15.0 [facility] Comment on above: Performed By: #### C BC ####[facility] Efzbknxsdv3899 [place] [address]Dr. Shiraemilia Tevin Hematocrit (Bld) [Volume fraction] 26.6 % Critically low 42.0-54.0 [facility] Comment on above: Performed By: #### C BC ####[facility] Gmxwvxmwtp2085 [place] [address]Dr. Erica Abarca Hemoglobin (Bld) [Mass/Vol] 8.0 g/dL Critically low 14.0-18.0 [facility] Comment on above: Performed By: #### C BC ####[facility] Sloimcmxho[address] [place], [place] [address]Dr. Erica Abarca LYMPH # 0.5 103/ul Critically low 1.2-3.8 [facility] Comment on above: Performed By: #### C BC ####[facility] Gjmyykmsff79[address] [place], [place] [address]Dr. Erica Abarca Lymphocytes/100 WBC (Bld) 8.6 % Critically low 20.5-60.0 [facility] Comment on above: Performed By: #### C BC ####[facility] Uwmzfentyx9480[address] [place], [place] [address]Dr. Erica Abarca MCH (RBC) [Entitic mass] 23.9 pg Critically low 25.9-34.0 [facility] Comment on above: Performed By: #### C BC ####[facility] Twbnosqwqb8881 [place] [address]Dr. Erica Abarca MCHC (RBC) [Mass/Vol] 30.1 g/dL Normal 29.9-35.2 [facility] Comment on above: Performed By: #### C BC ####[facility] Qxvlnqhsdm084[address] [place], [place] [address]Dr. Erica Abarca MCV (RBC) [Entitic vol] 79.4 fL Critically low 80.0-94.0 [facility] Comment on above: Performed By: #### C BC ####[facility] Flikiobtvf989[address] [place], [place] [address]Dr. Erica Abarca Monocytes/100 WBC (Bld) 5.9 % Normal 1.7-12.0 [facility] Comment on above: Performed By: #### C BC ####[facility] Offpcroxeo9919 [place] [address]Dr. Erica Abarca NEUT # 5.0 103/ul Normal 1.4-6.5 [facility] Comment on above: Performed By: #### C BC ####[facility] Npfbvztrll3453 [place] [address]Dr. Erica Abarca Neutrophils/100 WBC (Bld) 83.0 % Critically high 43.0-75.0 [facility] Comment on above: Performed By: #### C BC ####[facility] Ajmqmikbgi3675[address] [place], [place] [address]Dr. Erica Abarca Platelet mean volume (Bld) [Entitic vol] 8.6 fL Critically low 9.5-13.5 [facility] Comment on above: Performed By: #### C BC ####[facility] Qsddrfpgfl0220[address] [place], [place] [address]Dr. Erica Abarca PLT 220 103/ul Normal 150-450 [facility] Comment on above: Performed By: #### C BC ####[facility] Afhukpnwfi722[address] [place], [place] [address]Dr. Erica Abarca RBC 3.35 106/ul Critically low 4.70-6.10 [facility] Comment on above: Performed By: #### C BC ####[facility] Gqsmzhcgdd485[address] [place], [place] [address]Dr. Erica Abarca BASO # 0.0 103/ul Normal 0.0-0.1 [facility] Comment on above: Performed By: #### C BC ####[facility] Avivcbaazj2213[address] [place], [place] [address]Dr. Erica Abarca Basophils/100 WBC (Bld) 0.7 % Normal 0.2-2.0 [facility] Comment on above: Performed By: #### C BC ####[facility] Reasiccghk1900[address] [place], [place] [address]Dr. Erica Tevin EO # 0.1 103/ul Normal 0.0-0.7 [facility] Comment on above: Performed By: #### C BC ####[facility] Zjdcmuaotc4449 [place] [address]Dr. Erica Tevin Eosinophils/100 WBC (Bld) 2.3 % Normal 0.9-7.0 [facility] Comment on above: Performed By: #### C BC ####[facility] Bgnrdtkgqm9569[address] [place], [place] [address]Dr. Erica Abarca Erythrocyte distribution width (RBC) [Ratio] 18.9 % Critically high 11.0-15.0 [facility] Comment on above: Performed By: #### C BC ####[facility] Ywkkpkicyu61[address] [place], [place] [address]Dr. Erica Abarca Hematocrit (Bld) [Volume fraction] 27.5 % Critically low 42.0-54.0 [facility] Comment on above: Performed By: #### C BC ####[facility] Skknpfktmn7[address] [place], [place] [address]Dr. Erica Abarca Hemoglobin (Bld) [Mass/Vol] 8.2 g/dL Critically low 14.0-18.0 [facility] Comment on above: Performed By: #### C BC ####[facility] Blkwbnxxtg2733[address] [place], [place] [address]Dr. Erica Abarca IG # 0.03 10e3/ul Normal 0.00-0.03 [facility] Comment on above: Performed By: #### C BC ####[facility] Menuxyrdjx7425[address] [place], [place] [address]Dr. Erica Abarca IG % 0.5 % Normal 0.0-0.5 [facility] Comment on above: Performed By: #### C BC ####[facility] Fzwiuzjozl87[address] [place], [place] [address]Dr. Erica Abarca LYMPH # 0.6 103/ul Critically low 1.2-3.8 [facility] Comment on above: Performed By: #### C BC ####[facility] Kortiporlu1534[address] [place], [place] [address]Dr. Erica Abarca Lymphocytes/100 WBC (Bld) 10.2 % Critically low 20.5-60.0 [facility] Comment on above: Performed By: #### C BC ####[facility] Bxsuujllwd2044 [place] [address]DrCandi Abarca MANUAL DIFF REQ NO Normal [facility] Comment on above: Performed By: #### C BC ####[facility] Minzxgzoax9954 [place] [address]Dr. Erica Abarca MCH (RBC) [Entitic mass] 23.8 pg Critically low 25.9-34.0 [facility] Comment on above: Performed By: #### C BC ####[facility] Wqfshtimrr087[address] [place], [place] [address]Dr. Erica Abarca MCHC (RBC) [Mass/Vol] 29.8 g/dL Critically low 29.9-35.2 [facility] Comment on above: Performed By: #### C BC ####[facility] Enklzaxqgi715[address] [place], [place] [address]DrCandi Abarca MCV (RBC) [Entitic vol] 79.7 fL Critically low 80.0-94.0 [facility] Comment on above: Performed By: #### C BC ####[facility] Gfhkprrryl53[address] [place], [place] [address]DrCandi Abarca MONO # 0.4 103/ul Normal 0.3-0.8 [facility] Comment on above: Performed By: #### C BC ####[facility] Iqbsiztdhw25[address] [place], [place] [address]DrCandi Abarca Monocytes/100 WBC (Bld) 6.0 % Normal 1.7-12.0 [facility] Comment on above: Performed By: #### C BC ####[facility] Csufnakrgk7[address] [place], [place] [address]DrCandi Abarca NEUT # 4.8 103/ul Normal 1.4-6.5 [facility] Comment on above: Performed By: #### C BC ####[facility] Iburcfaftg[address] [place], [place] [address]DrCandi Abarca Neutrophils/100 WBC (Bld) 80.3 % Critically high 43.0-75.0 [facility] Comment on above: Performed By: #### C BC ####[facility] Wmlieduybr[address] [place] [address]Dr. Erica Abarca Platelet mean volume (Bld) [Entitic vol] 8.1 fL Critically low 9.5-13.5 [facility] Comment on above: Performed By: #### C BC ####[facility] Tjjdjnbyne[address] [place] [address]Dr. Erica Abarca PLT 211 103/ul Normal 150-450 [facility] Comment on above: Performed By: #### C BC ####[facility] Cblieqxauv299[address] [place], [place] [address]Dr. Erica Abarca RBC 3.45 106/ul Critically low 4.70-6.10 [facility] Comment on above: Performed By: #### C BC ####[facility] Cidvxwakmr5860[address] [place], [place] [address]Dr. Erica Abarca WBC 6.0 103/ul Normal 4.0-11.0 [facility] Comment on above: Performed By: #### C BC ####[facility] Xarowlpntr400[address] [place], [place] [address]Dr. Erica Tevin POINT OF CARE GLUCOSEon 08-28 Glucose [Mass/Vol] 150 mg/dL Critically high 74-106 [facility] Comment on above: Performed By: #### P OCGLUC ####[facility] Yqbxghhzyk9[address] [place], [place] [address]Dr. Erica Tevin Glucose [Mass/Vol] 166 mg/dL Critically high 74-106 [facility] Comment on above: Performed By: #### P OCGLUC ####[facility] Hkuwxahzlh164[address] [place], [place] [address]Dr. Erica Tevin Glucose [Mass/Vol] 178 mg/dL Critically high 74-106 [facility] Comment on above: Performed By: #### P OCGLUC ####[facility] Vtnoaizfrk[address] [place], [place] [address]Dr. Erica Abarca PRBC LEUKOREDUCEDon 09-18-19 23 PRBC LEUKOREDUCED Normal [facility] Comment on above: Performed By: #### P RBC ####[facility] Hkbrjiovid1541 [place] [address]DrCandi Abarca PROF 14(COMP METB)on 023 Albumin [Mass/Vol] 2.8 g/dL Critically low 3.4-5.0 [facility] Comment on above: Performed By: #### C MP ####[facility] Ycackvjdom020[address] [place], [place] [address]DrCandi Abarca Albumin/Globulin [Mass ratio] 0.6 {ratio} Normal [facility] Comment on above: Performed By: #### C MP ####[facility] Htumutkxqt997[address] [place], [place] [address]Dr. Erica Abarca ALP [Catalytic activity/Vol] 83 U/L Normal 46-116 [facility] Comment on above: Performed By: #### C MP ####[facility] Ndjeborikq396[address] [place], [place] [address]Dr. Erica Abarca ALT [Catalytic activity/Vol] 14 U/L Critically low 16-63 [facility] Comment on above: Performed By: #### C MP ####[facility] Gvngahvzoq1517[address] [place], [place] [address]DrCandi Abarca Anion gap [Moles/Vol] 11.0 mmol/L Normal [facility] Comment on above: Performed By: #### C MP ####[facility] Vlkktmvoth7965[address] [place], [place] [address]DrCandi Abarca AST [Catalytic activity/Vol] 14 U/L Critically low 15-37 [facility] Comment on above: Performed By: #### C MP ####[facility] Txojmpldni4465[address] [place], [place] [address]DrCandi Abarca Bilirubin [Mass/Vol] 1.0 mg/dL Normal 0.2-1.0 [facility] Comment on above: Performed By: #### C MP ####[facility] Iuzfelcsta412[address] [place], [place] [address]DrCandi Abarca Calcium [Mass/Vol] 8.8 mg/dL Normal 8.5-10.1 [facility] Comment on above: Performed By: #### C MP ####[facility] Hxxqdzhhbb4450 [place] [address]Dr. Erica Tevin Chloride [Moles/Vol] 102 mmol/L Normal 98-107 [facility] Comment on above: Performed By: #### C MP ####[facility] Trydiwdrfu6501[address] [place], [place] [address]Dr. Erica Tevin CO2 [Moles/Vol] 29.6 mmol/L Normal 21.0-32.0 [facility] Comment on above: Performed By: #### C MP ####[facility] Xtzlzhszvh9314[address] [place], [place] [address]Dr. Shiraemilia Tevin Creatinine [Mass/Vol] 1.66 mg/dL Critically high 0.70-1.30 [facility] Comment on above: Performed By: #### C MP ####[facility] Uiggzgrfsj3050[address] [place], [place] [address]Dr. Erica Tevin EGFR-AF AUSTRIAN 52 mL/min/1.73m2 Critically low >=60 [facility] Comment on above: Performed By: #### C MP ####[facility] Jvypliuczy35217[address] [place], [place] [address]Dr. Erica Tevin EGFR-NON AF AUSTRIAN 43 mL/min/1.73m2 Critically low >=60 [facility] Comment on above: Performed By: #### C MP ####[facility] Sakrxzskfn355[address] [place], [place] [address]Dr. Erica Tevin Globulin (S) [Mass/Vol] 4.4 g/dL Normal [facility] Comment on above: Performed By: #### C MP ####[facility] Mwsfvzexyl4413[address] [place], [place] [address]Dr. Erica Abarca Glucose [Mass/Vol] 167 mg/dL Critically high 74-[address] [facility] Comment on above: Performed By: #### C MP ####[facility] Aikvbyvsoq787[address] [place], [place] [address]Dr. Erica Abarca Potassium [Moles/Vol] 3.6 mmol/L Normal 3.5-5.1 [facility] Comment on above: Performed By: #### C MP ####[facility] Lwzebwjtan0332[address] [place], [place] [address]Dr. Erica Abarca Protein [Mass/Vol] 7.2 g/dL Normal 6.4-8.2 [facility] Comment on above: Performed By: #### C MP ####[facility] Nvljmdyhxn427[address] [place], [place] [address]Dr. Erica Abarca Sodium [Moles/Vol] 139 mmol/L Normal 136-145 [facility] Comment on above: Performed By: #### C MP ####[facility] Kuiadzmluc2423[address] [place], [place] [address]Dr. Erica eTvin Urea nitrogen [Mass/Vol] 23.0 mg/dL Critically high 7.0-18.0 [facility] Comment on above: Performed By: #### C MP ####[facility] Zusrkfpsit532[address] [place], [place] [address]Dr. Erica Tevin Urea nitrogen/Creatinine [Mass ratio] 13.9 mg/mg Normal [facility] Comment on above: Performed By: #### C MP ####[facility] Zhbtyghrlz228[address] [place], [place] [address]Dr. Erica Tevin CBC AUTO DIFFon 09-16-2022 BASO # 0.0 103/ul Normal 0.0-0.1 [facility] Comment on above: Performed By: #### C BC ####[facility] Bfuohvolmt1144[address] [place], [place] [address]Dr. Erica Tevin Basophils/100 WBC (Bld) 0.6 % Normal 0.2-2.0 [facility] Comment on above: Performed By: #### C BC ####[facility] Jqzfukscwz9824[address] [place], [place] [address]Dr. Shiraemilia Abarca EO # 0.2 103/ul Normal 0.0-0.7 [facility] Comment on above: Performed By: #### C BC ####[facility] Nyuxrxqrtg5124 [place] [address]Dr. Erica Abarca Eosinophils/100 WBC (Bld) 2.7 % Normal 0.9-7.0 [facility] Comment on above: Performed By: #### C BC ####[facility] Qrioloqqaz8009[address] [place], [place] [address]Dr. Erica Abarca Erythrocyte distribution width (RBC) [Ratio] 19.2 % Critically high 11.0-15.0 [facility] Comment on above: Performed By: #### C BC ####[facility] Jabncfuupt069[address] [place], [place] [address]Dr. Erica Abarca Hematocrit (Bld) [Volume fraction] 25.7 % Critically low 42.0-54.0 [facility] Comment on above: Performed By: #### C BC ####[facility] Gjnfjiawrl716[address] [place], [place] [address]Dr. Erica Abarca Hemoglobin (Bld) [Mass/Vol] 7.7 g/dL Critically low 14.0-18.0 [facility] Comment on above: Performed By: #### C BC ####[facility] Lhzmzetxrm196[address] [place], [place] [address]Dr. Erica Abarca IG # 0.02 10e3/ul Normal 0.00-0.03 [facility] Comment on above: Performed By: #### C BC ####[facility] Eiorvdvgee99037[address] [place], [place] [address]Dr. Erica Abarca IG % 0.3 % Normal 0.0-0.5 [facility] Comment on above: Performed By: #### C BC ####[facility] Onhmmroiiv139[address] [place], [place] [address]Dr. Erica Abarca LYMPH # 0.8 103/ul Critically low 1.2-3.8 [facility] Comment on above: Performed By: #### C BC ####[facility] Mxouhxvtif350[address] [place], [place] [address]Dr. Erica Abarca Lymphocytes/100 WBC (Bld) 12.6 % Critically low 20.5-60.0 [facility] Comment on above: Performed By: #### C BC ####[facility] Olxvnfahzl30[address] [place] [address]Dr. Erica Abarca MANUAL DIFF REQ NO Normal [facility] Comment on above: Performed By: #### C BC ####[facility] Ucxiamheai7587 [place] [address]Dr. Erica Abarca MCH (RBC) [Entitic mass] 23.5 pg Critically low 25.9-34.0 [facility] Comment on above: Performed By: #### C BC ####[facility] Fsyxgeprnx2939 [place] [address]Dr. Erica Abarca MCHC (RBC) [Mass/Vol] 30.0 g/dL Normal 29.9-35.2 [facility] Comment on above: Performed By: #### C BC ####[facility] Sbzfaaiuep0192 [place] [address]Dr. Erica Tevin MCV (RBC) [Entitic vol] 78.6 fL Critically low 80.0-94.0 [facility] Comment on above: Performed By: #### C BC ####[facility] Xcmjhffnyx27[address] [place] [address]Dr. Erica Tevin MONO # 0.3 103/ul Normal 0.3-0.8 [facility] Comment on above: Performed By: #### C BC ####[facility] Oibukwkppy79[address] [place], [place] [address]Dr. Erica Abarca Monocytes/100 WBC (Bld) 5.1 % Normal 1.7-12.0 [facility] Comment on above: Performed By: #### C BC ####[facility] Mtnybsxgcw8209 [place] [address]Dr. Erica Abarca NEUT # 5.0 103/ul Normal 1.4-6.5 [facility] Comment on above: Performed By: #### C BC ####[facility] Zajuiobrkl1847 [place] [address]Dr. Erica Abarca Neutrophils/100 WBC (Bld) 78.7 % Critically high 43.0-75.0 [facility] Comment on above: Performed By: #### C BC ####[facility] Ertgfjkxvc5819 [place] [address]Dr. Erica Tevin Platelet mean volume (Bld) [Entitic vol] 8.6 fL Critically low 9.5-13.5 [facility] Comment on above: Performed By: #### C BC ####[facility] Tniwyshurt[address] [place] [address]Dr. Shiraemilia Tevin PLT 268 103/ul Normal 150-450 [facility] Comment on above: Performed By: #### C BC ####[facility] Bevyakbuxd2210 [place] [address]Dr. Erica Abarca RBC 3.27 106/ul Critically low 4.70-6.10 [facility] Comment on above: Performed By: #### C BC ####[facility] Vmhxfqwrsh1998 [place] [address]Dr. Erica Abarca WBC 6.3 103/ul Normal 4.0-11.0 [facility] Comment on above: Performed By: #### C BC ####[facility] Vujlzcljmg40[address] [place] [address]Dr. Erica Abarca PRBC LEUKOREDUCEDon 09-17-19 23 PRBC LEUKOREDUCED Normal [facility] Comment on above: Performed By: #### P RBC, TNS ####[facility] Rwhkqrwuqv1454 [place] [address]Dr. Erica Abarca PROF 14(COMP METB)on 023 Albumin [Mass/Vol] 2.8 g/dL Critically low 3.4-5.0 [facility] Comment on above: Performed By: #### C MP ####[facility] Vzhkeespbb5651 [place] [address]Dr. Erica Abarca Albumin/Globulin [Mass ratio] 0.7 {ratio} Normal [facility] Comment on above: Performed By: #### C MP ####[facility] Cmlujxkyfe1115 [place] [address]Dr. Erica Abarca ALP [Catalytic activity/Vol] 89 U/L Normal 46-116 [facility] Comment on above: Performed By: #### C MP ####[facility] Eipatokcdu45[address] [place], [place] [address]Me. Erica Abarca ALT [Catalytic activity/Vol] 14 U/L Critically low 16-63 [facility] Comment on above: Performed By: #### C MP ####[facility] Hilwpfpvfo8660 [place], [place] [address]Vc. Erica Abarca Anion gap [Moles/Vol] 11.8 mmol/L Normal [facility] Comment on above: Performed By: #### C MP ####[facility] Fhoiguaaiv4357 [place] [address]Dr. Erica Abarca AST [Catalytic activity/Vol] 17 U/L Normal 15-37 [facility] Comment on above: Performed By: #### C MP ####[facility] Jtcawixdyi1103 [place] [address]Dr. Erica Abarca Bilirubin [Mass/Vol] 0.8 mg/dL Normal 0.2-1.0 [facility] Comment on above: Performed By: #### C MP ####[facility] Zqrdkywdoj4585 [place] [address]Dr. Erica Abarca Calcium [Mass/Vol] 8.3 mg/dL Critically low 8.5-10.1 [facility] Comment on above: Performed By: #### C MP ####[facility] Hjfgombbof0381 [place] [address]Dr. Erica Abarca Chloride [Moles/Vol] 101 mmol/L Normal 98-107 [facility] Comment on above: Performed By: #### C MP ####[facility] Swzlmjhbji9808 [place] [address]Dr. Erica Abarca CO2 [Moles/Vol] 29.9 mmol/L Normal 21.0-32.0 [facility] Comment on above: Performed By: #### C MP ####[facility] Qdxssuptyn8751 [place] [address]Dr. Erica Abarca Creatinine [Mass/Vol] 1.57 mg/dL Critically high 0.70-1.30 [facility] Comment on above: Performed By: #### C MP ####[facility] Tlufedzkib0566 [place] [address]Dr. Erica Abarca EGFR-AF AUSTRIAN 55 mL/min/1.73m2 Critically low >=60 [facility] Comment on above: Performed By: #### C MP ####[facility] Jyqykdnwxj2878 [place] [address]Dr. Erica Abarca EGFR-NON AF AUSTRIAN 46 mL/min/1.73m2 Critically low >=60 [facility] Comment on above: Performed By: #### C MP ####[facility] Htmycdqnzi7334 [place] [address]Dr. Erica Abarca Globulin (S) [Mass/Vol] 4.3 g/dL Normal [facility] Comment on above: Performed By: #### C MP ####[facility] Beetnnqkzr8726 [place] [address]Dr. Erica Abarca Glucose [Mass/Vol] 148 mg/dL Critically high 74-106 [facility] Comment on above: Performed By: #### C MP ####[facility] Annirruhxv2868 [place] [address]Dr. Erica Abarca Potassium [Moles/Vol] 3.7 mmol/L Normal 3.5-5.1 [facility] Comment on above: Performed By: #### C MP ####[facility] Lirejqvsqe4493 [place] [address]Dr. Erica Abarca Protein [Mass/Vol] 7.1 g/dL Normal 6.4-8.2 [facility] Comment on above: Performed By: #### C MP ####[facility] Bdsekjlnpv3078 [place] [address]Dr. Erica Abarca Sodium [Moles/Vol] 139 mmol/L Normal 136-145 [facility] Comment on above: Performed By: #### C MP ####[facility] Dpqvzsamhv1186 [place] [address]Dr. Erica Abarca Urea nitrogen [Mass/Vol] 19.0 mg/dL Critically high 7.0-18.0 [facility] Comment on above: Performed By: #### C MP ####[facility] Pzrasuiyeo9367 [place] [address]Dr. Erica Abarca Urea nitrogen/Creatinine [Mass ratio] 12.1 mg/mg Normal [facility] Comment on above: Performed By: #### C MP ####[facility] Zznwqarogn7711 [place] [address]Dr. Erica Abarca PROTIMEon 09-16-2022 INR Coag (PPP) [Relative time] 1.06 {INR} Normal [facility] Comment on above: Performed By: #### P TT, PT ####[facility] Lbqjhbwxkh660[address] [place], [place] [address]Dr. Erica Abarca INR GUIDELINES SEE BELOW Normal [facility] Comment on above: Result Comment: GABRIELA RED INR: 2.0 - 3.0 CONDITIONS NOT LISTED BELOW 2.5 - 3.5 FOR PROSTHETIC HEART VALVE REPLACEMENT 2.5 - 3.5 RECURRENT THROMBOSIS Performed By: #### P TT, PT ####[facility] Ehglvrpplc9833[address] [place], [place] [address]Dr. Erica Abarca PT Coag (PPP) [Time] 11.2 s Normal 9.0-11.6 [facility] Comment on above: Performed By: #### P TT, PT ####[facility] Bptmzqrqcb2020[address] [place], [place] [address]Dr. Erica Abarca PTTon 09-16-2022 aPTT Coag (Bld) [Time] 34.9 s Normal 22.3-36.2 [facility] Comment on above: Performed By: #### P TT, PT ####[facility] Ijhmrivhai[address] [place], [place] [address]Dr. Shiraemilia Abarca CBC AUTO DIFFon 09-15-2022 BASO # 0.0 103/ul Normal 0.0-0.1 [facility] Comment on above: Performed By: #### C BC ####[facility] Txrekqdswc3411[address] [place], [place] [address]Dr. Erica Abarca Basophils/100 WBC (Bld) 0.4 % Normal 0.2-2.0 [facility] Comment on above: Performed By: #### C BC ####[facility] Ucuolkdjis5680 [place] [address]Dr. Erica Abarca EO # 0.1 103/ul Normal 0.0-0.7 [facility] Comment on above: Performed By: #### C BC ####[facility] Jelmlhzbqa9412 [place] [address]Dr. Shiraemilia Abarca Eosinophils/100 WBC (Bld) 2.9 % Normal 0.9-7.0 [facility] Comment on above: Performed By: #### C BC ####[facility] Adngyxftnf5767[address] [place], [place] [address]Dr. Shiraemilia Abarca Erythrocyte distribution width (RBC) [Ratio] 19.9 % Critically high 11.0-15.0 [facility] Comment on above: Performed By: #### C BC ####[facility] Pavylgvfvh116[address] [place], [place] [address]Dr. Erica Abarca Hematocrit (Bld) [Volume fraction] 21.9 % Critically low 42.0-54.0 [facility] Comment on above: Performed By: #### C BC ####[facility] Vtizoztite91[address] [place], [place] [address]Dr. Erica Abarca Hemoglobin (Bld) [Mass/Vol] 6.2 g/dL Critically low 14.0-18.0 [facility] Comment on above: Result Comment: ashwin ent is scheduled to receive 2 units of PRBC's on 09/16 Performed By: #### C BC ####[facility] Fohfggwodm[address] [place], [place] [address]Dr. Erica Abarca IG # 0.03 10e3/ul Normal 0.00-0.03 [facility] Comment on above: Performed By: #### C BC ####[facility] Yzjnelmlcm137[address] [place], [place] [address]Dr. Erica Abarca IG % 0.7 % Critically high 0.0-0.5 [facility] Comment on above: Performed By: #### C BC ####[facility] Yglmzdhllk8213[address] [place], [place] [address]Dr. Erica Abarca LYMPH # 0.8 103/ul Critically low 1.2-3.8 [facility] Comment on above: Performed By: #### C BC ####[facility] Yserlkhtyz7845 [place] [address]DrCandi Abarca Lymphocytes/100 WBC (Bld) 17.0 % Critically low 20.5-60.0 [facility] Comment on above: Performed By: #### C BC ####[facility] Kvcwfektwc3332 [place] [address]DrCandi Abarca MANUAL DIFF REQ NO Normal [facility] Comment on above: Performed By: #### C BC ####[facility] Hqowmonclq8276 [place] [address]DrCandi Abarca MCH (RBC) [Entitic mass] 22.0 pg Critically low 25.9-34.0 [facility] Comment on above: Performed By: #### C BC ####[facility] Zzcrjkahse17[address] [place], [place] [address]DrCandi Abarca MCHC (RBC) [Mass/Vol] 28.3 g/dL Critically low 29.9-35.2 [facility] Comment on above: Performed By: #### C BC ####[facility] Pxwybyqgsg16[address] [place], [place] [address]DrCandi Abarca MCV (RBC) [Entitic vol] 77.7 fL Critically low 80.0-94.0 [facility] Comment on above: Performed By: #### C BC ####[facility] Wpmfiuwokn814[address] [place], [place] [address]DrCandi Abarca MONO # 0.3 103/ul Normal 0.3-0.8 [facility] Comment on above: Performed By: #### C BC ####[facility] Lxqyqhwxkl465[address] [place], [place] [address]DrCandi Abarca Monocytes/100 WBC (Bld) 6.9 % Normal 1.7-12.0 [facility] Comment on above: Performed By: #### C BC ####[facility] Ahxwfztyyr838[address] [place], [place] [address]DrCandi Abarca NEUT # 3.2 103/ul Normal 1.4-6.5 [facility] Comment on above: Performed By: #### C BC ####[facility] Ltzangecle3958 [place] [address]Dr. Erica Abarca Neutrophils/100 WBC (Bld) 72.1 % Normal 43.0-75.0 [facility] Comment on above: Performed By: #### C BC ####[facility] Fgavdfqnea8767 [place] [address]Dr. Erica Abarca Platelet mean volume (Bld) [Entitic vol] 8.6 fL Critically low 9.5-13.5 [facility] Comment on above: Performed By: #### C BC ####[facility] Fqcwqaagzt424[address] [place], [place] [address]Dr. Erica Abarca PLT 242 103/ul Normal 150-450 [facility] Comment on above: Performed By: #### C BC ####[facility] Ekzjnrplph004[address] [place], [place] [address]DrCandi Abarca RBC 2.82 106/ul Critically low 4.70-6.10 [facility] Comment on above: Performed By: #### C BC ####[facility] Nvfqpfzuri16[address] [place], [place] [address]DrCandi Abarca WBC 4.5 103/ul Normal 4.0-11.0 [facility] Comment on above: Performed By: #### C BC ####[facility] Zpqasbcvix345[address] [place], [place] [address]DrCandi Abarca PROF 14(COMP METB)on 023 Albumin [Mass/Vol] 2.7 g/dL Critically low 3.4-5.0 [facility] Comment on above: Performed By: #### C MP ####[facility] Otpzrdmvyp000[address] [place], [place] [address]DrCandi Abarca Albumin/Globulin [Mass ratio] 0.7 {ratio} Normal [facility] Comment on above: Performed By: #### C MP ####[facility] Hhjlnbwbym586[address] [place], [place] [address]DrCandi Abarca ALP [Catalytic activity/Vol] 84 U/L Normal 46-116 [facility] Comment on above: Performed By: #### C MP ####[facility] Uxvpvysdae9355 [place] [address]Dr. Erica Abarca ALT [Catalytic activity/Vol] 15 U/L Critically low 16-63 [facility] Comment on above: Performed By: #### C MP ####[facility] Hhbulcztbf8093 [place] [address]Dr. Erica Tevin Anion gap [Moles/Vol] 11.0 mmol/L Normal [facility] Comment on above: Performed By: #### C MP ####[facility] Nclgyztbop0877[address] [place], [place] [address]Dr. Erica Tevin AST [Catalytic activity/Vol] 14 U/L Critically low 15-37 [facility] Comment on above: Performed By: #### C MP ####[facility] Rbokobpvnm568[address] [place], [place] [address]Dr. Erica Tevin Bilirubin [Mass/Vol] 0.5 mg/dL Normal 0.2-1.0 [facility] Comment on above: Performed By: #### C MP ####[facility] Sxhlgrvrdy208[address] [place], [place] [address]Dr. Erica Tevin Calcium [Mass/Vol] 8.4 mg/dL Critically low 8.5-10.1 [facility] Comment on above: Performed By: #### C MP ####[facility] Raxnteziyi[address] [place], [place] [address]Dr. Erica Tevin Chloride [Moles/Vol] 103 mmol/L Normal 98-107 [facility] Comment on above: Performed By: #### C MP ####[facility] Gaaojppzgn95[address] [place], [place] [address]Dr. Erica Tevin CO2 [Moles/Vol] 30.4 mmol/L Normal 21.0-32.0 [facility] Comment on above: Performed By: #### C MP ####[facility] Sbadzdvjsi70[address] [place], [place] [address]Dr. Erica Tevin Creatinine [Mass/Vol] 1.48 mg/dL Critically high 0.70-1.30 [facility] Comment on above: Performed By: #### C MP ####[facility] Mbnnnrwhgn1137 [place] [address]Dr. Erica Abarca EGFR-AF AUSTRIAN 59 mL/min/1.73m2 Critically low >=60 [facility] Comment on above: Performed By: #### C MP ####[facility] Atzxkkkzvk4279 [place] [address]Dr. Erica Abarca EGFR-NON AF AUSTRIAN 49 mL/min/1.73m2 Critically low >=60 [facility] Comment on above: Performed By: #### C MP ####[facility] Xpfgapmfkl[address] [place] [address]Dr. Erica Abarca Globulin (S) [Mass/Vol] 4.0 g/dL Normal [facility] Comment on above: Performed By: #### C MP ####[facility] Akjxwvrbx[address] [place], [place] [address]Dr. Erica Abarca Glucose [Mass/Vol] 154 mg/dL Critically high 74-106 [facility] Comment on above: Performed By: #### C MP ####[facility] Qkhwqklukp85[address] [place], [place] [address]Dr. Erica Abarca Potassium [Moles/Vol] 3.4 mmol/L Critically low 3.5-5.1 [facility] Comment on above: Performed By: #### C MP ####[facility] Wagwnwmpdz075[address] [place], [place] [address]Dr. Erica Abarca Protein [Mass/Vol] 6.7 g/dL Normal 6.4-8.2 [facility] Comment on above: Performed By: #### C MP ####[facility] Zghjspszuj712[address] [place], [place] [address]Dr. Erica Abarca Sodium [Moles/Vol] 141 mmol/L Normal 136-145 [facility] Comment on above: Performed By: #### C MP ####[facility] Qfbbgfhvmg565[address] [place], [place] [address]Dr. Erica Abarca Urea nitrogen [Mass/Vol] 19.0 mg/dL Critically high 7.0-18.0 [facility] Comment on above: Performed By: #### C MP ####[facility] Jlqdxaxten08[address] [place], [place] [address]Dr. Erica Abarca Urea nitrogen/Creatinine [Mass ratio] 12.8 mg/mg Normal [facility] Comment on above: Performed By: #### C MP ####[facility] Joggrhrilp3440[address] [place], [place] [address]Dr. Shiraemilia Abarca VANCOMYCIN TROUGHon 09-16-19 VANCOMYCIN TROUGH 14.2 ug/ml Normal 5.0-20.0 [facility] Comment on above: Performed By: #### V ANCT ####[facility] Jqgleosgcb911[address] [place], [place] [address]Dr. Erica Abarca HEMOGLOBIN AND HEMATOCRITon 09-14-2022 Hematocrit (Bld) [Volume fraction] 24.5 % Critically low 42.0-54.0 [facility] Comment on above: Performed By: #### H GBHCT ####[facility] Etmndlvolj2839[address] [place], [place] [address]Dr. Erica Abarca Hemoglobin (Bld) [Mass/Vol] 6.9 g/dL Critically low 14.0-18.0 [facility] Comment on above: Performed By: #### H GBHCT ####[facility] Kejwpyaxce35[address] [place], [place] [address]Dr. Erica Abarca TYPE AND SCREENon 09-14-2022 TYPE AND SCREEN Negative Normal [facility] Comment on above: Performed By: #### P RBC, TNS ####[facility] Rickkrojcp366[address] [place], [place] [address]Dr. Erica Abarca CBC AUTO DIFFon 09-12-2022 BASO # 0.0 103/ul Normal 0.0-0.1 [facility] Comment on above: Performed By: #### C BC ####[facility] Kyfleihttm075[address] [place], [place] [address]Dr. Erica Abarca Basophils/100 WBC (Bld) 0.7 % Normal 0.2-2.0 [facility] Comment on above: Performed By: #### C BC ####[facility] L[address]qwvdwe[address] [place] [address]Dr. Erica Abarca EO # 0.3 103/ul Normal 0.0-0.7 [facility] Comment on above: Performed By: #### C BC ####[facility] Qygnoqhgtp1141 [place] [address]Dr. Erica Abarca Eosinophils/100 WBC (Bld) 4.3 % Normal 0.9-7.0 [facility] Comment on above: Performed By: #### C BC ####[facility] Nsjlojgeel4304 [place] [id number]. Erica Abarca Erythrocyte distribution width (RBC) [Ratio] 20.1 % Critically high 11.0-15.0 [facility] Comment on above: Performed By: #### C BC ####[facility] Nipbotefka2736[address] [place], [place] [address]Dr. Erica Abarca Hematocrit (Bld) [Volume fraction] 21.8 % Critically low 42.0-54.0 [facility] Comment on above: Performed By: #### C BC ####[facility] Pdbpsahdfy46[address] [place], [place] [address]Dr. Erica Abarca Hemoglobin (Bld) [Mass/Vol] 6.5 g/dL Critically low 14.0-18.0 [facility] Comment on above: Performed By: #### C BC ####[facility] Czbbeobjzu8180 [place] [address]Dr. Erica Abarca IG # 0.04 10e3/ul Critically high 0.00-0.03 [facility] Comment on above: Performed By: #### C BC ####[facility] Mscgpxxgww2087 [place] [address]Dr. Erica Abarca IG % 0.7 % Critically high 0.0-0.5 [facility] Comment on above: Performed By: #### C BC ####[facility] Ojgqawlwbn[address] [place], [place] [id number]. Shiraemilia Abarca LYMPH # 0.8 103/ul Critically low 1.2-3.8 [facility] Comment on above: Performed By: #### C BC ####[facility] Fmuekgwlgh9536 [place] [address]Dr. Erica Abarca Lymphocytes/100 WBC (Bld) 13.1 % Critically low 20.5-60.0 [facility] Comment on above: Performed By: #### C BC ####[facility] Ogpiwqtgez7742 [place] [address]DrCandi Abarca MANUAL DIFF REQ NO Normal [facility] Comment on above: Performed By: #### C BC ####[facility] Sosrvtpsxn6504 [place] [id number]. Erica Abarca MCH (RBC) [Entitic mass] 23.0 pg Critically low 25.9-34.0 [facility] Comment on above: Performed By: #### C BC ####[facility] Baxsddjgow604[address] [place], [place] [address]Dr. Erica Abarca MCHC (RBC) [Mass/Vol] 29.8 g/dL Critically low 29.9-35.2 [facility] Comment on above: Performed By: #### C BC ####[facility] Gylzbqlpqs764[address] [place], [place] [address]DrCandi Abarca MCV (RBC) [Entitic vol] 77.0 fL Critically low 80.0-94.0 [facility] Comment on above: Performed By: #### C BC ####[facility] Ssmjyfftfc[address] [place], [place] [address]Dr. Erica Abarca MONO # 0.4 103/ul Normal 0.3-0.8 [facility] Comment on above: Performed By: #### C BC ####[facility] Lbpvmglojo273[address] [place], [place] [address]DrCandi Abarca Monocytes/100 WBC (Bld) 6.1 % Normal 1.7-12.0 [facility] Comment on above: Performed By: #### C BC ####[facility] Kwvjxztijp312[address] [place], [place] [address]DrCandi Abarca NEUT # 4.6 103/ul Normal 1.4-6.5 [facility] Comment on above: Performed By: #### C BC ####[facility] Pcgzopdiwk6571 [place] [address]Dr. Erica Abarca Neutrophils/100 WBC (Bld) 75.1 % Critically high 43.0-75.0 [facility] Comment on above: Performed By: #### C BC ####[facility] Spsraoqmvb9220 [place] [address]Dr. Erica Abarca Platelet mean volume (Bld) [Entitic vol] 8.7 fL Critically low 9.5-13.5 [facility] Comment on above: Performed By: #### C BC ####[facility] Savbawetyt022[address] [place], [place] [address]Dr. Erica Tevin PLT 258 103/ul Normal 150-450 [facility] Comment on above: Performed By: #### C BC ####[facility] Cojpuyigwg744[address] [place], [place] [address]Dr. Shiraemilia Tevin RBC 2.83 106/ul Critically low 4.70-6.10 [facility] Comment on above: Performed By: #### C BC ####[facility] Nzouonmkeo299[address] [place], [place] [address]Dr. Erica Tevin WBC 6.1 103/ul Normal 4.0-11.0 [facility] Comment on above: Performed By: #### C BC ####[facility] Cpitcdwuvg8350[address] [place], [place] [address]Dr. Erica Abarca FUNGAL CULTUREon 09-12-2022 Fungus (Mycology) Culture Final report Normal [facility] Comment on above: Performed By: #### C XFUN ####[facility] Aeprybnjer[address] [place] [address]Dr. Erica Abarca Fungus Stain Final report Normal [facility] Comment on above: Performed By: #### C XFUN ####[facility] Monqotbeoa1423 [place] [address]Dr. Erica Abarca Result 1 Comment Normal [facility] Comment on above: Result Comment: NAGIE/ Calcofluor preparation: no fungus observed. Performed By: #### C XFUN ####[facility] Sdedxyjguv0059 [place] [address]Dr. Erica Abarca Result Comment: No y east or mold isolated after 4 weeks. PROF 14(COMP METB)on 023 Albumin [Mass/Vol] 2.7 g/dL Critically low 3.4-5.0 [facility] Comment on above: Performed By: #### C MP ####[facility] Qrzqjjhuyw2894 [place] [address]Dr. Erica Abarca Albumin/Globulin [Mass ratio] 0.7 {ratio} Normal [facility] Comment on above: Performed By: #### C MP ####[facility] Rvyizweirk9[address] [place], [place] [address]Dr. Erica Abarca ALP [Catalytic activity/Vol] 84 U/L Normal 46-116 [facility] Comment on above: Performed By: #### C MP ####[facility] Oxnifzrjqo1414[address] [place], [place] [address]Dr. Erica Abarca ALT [Catalytic activity/Vol] 13 U/L Critically low 16-63 [facility] Comment on above: Performed By: #### C MP ####[facility] Spudndosyd714[address] [place], [place] [address]Dr. Erica Abarca Anion gap [Moles/Vol] 11.3 mmol/L Normal [facility] Comment on above: Performed By: #### C MP ####[facility] Eszitcrfls108[address] [place], [place] [address]Dr. Erica Abarca AST [Catalytic activity/Vol] 16 U/L Normal 15-37 [facility] Comment on above: Performed By: #### C MP ####[facility] Hexwiasxmd2330[address] [place], [place] [address]Dr. Erica Abarca Bilirubin [Mass/Vol] 0.6 mg/dL Normal 0.2-1.0 [facility] Comment on above: Performed By: #### C MP ####[facility] Fkmfimyiqp949[address] [place], [place] [address]Dr. Erica Abarca Calcium [Mass/Vol] 8.0 mg/dL Critically low 8.5-10.1 [facility] Comment on above: Performed By: #### C MP ####[facility] Ttdmfqltwh8079 [place] [address]Dr. Erica Abarca Chloride [Moles/Vol] 102 mmol/L Normal 98-107 [facility] Comment on above: Performed By: #### C MP ####[facility] Ayngqzfjsy6185 [place] [address]Dr. Erica Abarca CO2 [Moles/Vol] 31.2 mmol/L Normal 21.0-32.0 [facility] Comment on above: Performed By: #### C MP ####[facility] Ruipcynidw1310 [place] [address]Dr. Erica Tevin Creatinine [Mass/Vol] 1.51 mg/dL Critically high 0.70-1.30 [facility] Comment on above: Performed By: #### C MP ####[facility] Xoobuodnau[address] [place], [place] [address]Dr. Erica Tevin EGFR-AF AUSTRIAN 58 mL/min/1.73m2 Critically low >=60 [facility] Comment on above: Performed By: #### C MP ####[facility] Ujjehheyfy287[address] [place], [place] [address]Dr. Erica Tevin EGFR-NON AF AUSTRIAN 48 mL/min/1.73m2 Critically low >=60 [facility] Comment on above: Performed By: #### C MP ####[facility] Szzqnqusaa3677 [place] [address]Dr. Erica Tevin Globulin (S) [Mass/Vol] 3.9 g/dL Normal [facility] Comment on above: Performed By: #### C MP ####[facility] Ufbkkeyory5162 [place] [address]Dr. Erica Tevin Glucose [Mass/Vol] 186 mg/dL Critically high 74-[address] [facility] Comment on above: Performed By: #### C MP ####[facility] Glmnmtfxni5675 [place] [address]Dr. Erica Abarca Potassium [Moles/Vol] 3.4 mmol/L Critically low 3.5-5.1 [facility] Comment on above: Performed By: #### C MP ####[facility] Nzeciinqqe508[address] [place], [place] [address]Dr. Erica Abarca Protein [Mass/Vol] 6.6 g/dL Normal 6.4-8.2 [facility] Comment on above: Performed By: #### C MP ####[facility] Tgeelmfcrn[address] [place], [place] [address]Dr. Erica Abarca Sodium [Moles/Vol] 141 mmol/L Normal 136-145 [facility] Comment on above: Performed By: #### C MP ####[facility] Sbtmvddkbg0138[address] [place], [place] [address]Dr. Erica Abarca Urea nitrogen [Mass/Vol] 21.0 mg/dL Critically high 7.0-18.0 [facility] Comment on above: Performed By: #### C MP ####[facility] Bhgyypfkiu647[address] [place], [place] [address]Dr. Erica Abarca Urea nitrogen/Creatinine [Mass ratio] 13.9 mg/mg Normal [facility] Comment on above: Performed By: #### C MP ####[facility] Itklrjwifa522[address] [place], [place] [address]Dr. Erica Abarca VANCOMYCIN TROUGHon 09-13-19 VANCOMYCIN TROUGH 13.5 ug/ml Normal 5.0-20.0 [facility] Comment on above: Performed By: #### V ANCT ####[facility] Jptiswtdxh70[address] [place], [place] [address]Dr. Erica Abarca CBC AUTO DIFFon 09-08-2022 BASO # 0.1 103/ul Normal 0.0-0.1 [facility] Comment on above: Performed By: #### C BC ####[facility] Xqitxdaosr9032[address] [place], [place] [address]Dr. Erica Abarca Basophils/100 WBC (Bld) 0.9 % Normal 0.2-2.0 [facility] Comment on above: Performed By: #### C BC ####[facility] Vdfpkstizx8436[address] [place], [place] [address]Dr. Erica Abarca EO # 0.2 103/ul Normal 0.0-0.7 [facility] Comment on above: Performed By: #### C BC ####[facility] Ocknbqscby9360 [place] [address]Dr. Erica Abarca Eosinophils/100 WBC (Bld) 4.0 % Normal 0.9-7.0 [facility] Comment on above: Performed By: #### C BC ####[facility] Wcdmmmdflg2657 [place] [address]Dr. Erica Abarca Erythrocyte distribution width (RBC) [Ratio] 21.1 % Critically high 11.0-15.0 [facility] Comment on above: Performed By: #### C BC ####[facility] Ilvqukwquh0520[address] [place], [place] [address]Dr. Erica Abarca Hematocrit (Bld) [Volume fraction] 24.4 % Critically low 42.0-54.0 [facility] Comment on above: Performed By: #### C BC ####[facility] Numualfrwf330[address] [place], [place] [address]Dr. Erica Abarca Hemoglobin (Bld) [Mass/Vol] 7.1 g/dL Critically low 14.0-18.0 [facility] Comment on above: Performed By: #### C BC ####[facility] Vtpwvpfcuj8179[address] [place], [place] [address]Dr. Erica Abarca IG # 0.03 10e3/ul Normal 0.00-0.03 [facility] Comment on above: Performed By: #### C BC ####[facility] Mrlfwnyxca3562 [place] [address]Dr. Erica Abarca IG % 0.5 % Normal 0.0-0.5 [facility] Comment on above: Performed By: #### C BC ####[facility] Aciinoxkoj7230[address] [place], [place] [address]Dr. Erica Abarca LYMPH # 0.9 103/ul Critically low 1.2-3.8 [facility] Comment on above: Performed By: #### C BC ####[facility] Lyxkbtjemf8200 [place] [address]Dr. Erica Abarca Lymphocytes/100 WBC (Bld) 15.3 % Critically low 20.5-60.0 [facility] Comment on above: Performed By: #### C BC ####[facility] Gddddfkqrw6789 [place] [address]Dr. Erica Abarca MANUAL DIFF REQ NO Normal [facility] Comment on above: Performed By: #### C BC ####[facility] Prdbaahxnf6391 [place] [address]Dr. Erica Abarca MCH (RBC) [Entitic mass] 23.0 pg Critically low 25.9-34.0 [facility] Comment on above: Performed By: #### C BC ####[facility] Yxufrfoejc00[address] [place], [place] [address]Dr. Erica Abarca MCHC (RBC) [Mass/Vol] 29.1 g/dL Critically low 29.9-35.2 [facility] Comment on above: Performed By: #### C BC ####[facility] Yaymqcxxdz268[address] [place], [place] [address]Dr. Erica Abarca MCV (RBC) [Entitic vol] 79.0 fL Critically low 80.0-94.0 [facility] Comment on above: Performed By: #### C BC ####[facility] Ztbzcqzhqt5509[address] [place], [place] [address]Dr. Erica Abarca MONO # 0.4 103/ul Normal 0.3-0.8 [facility] Comment on above: Performed By: #### C BC ####[facility] Vyuggbdgpp7868[address] [place], [place] [address]Dr. Erica Abarca Monocytes/100 WBC (Bld) 6.1 % Normal 1.7-12.0 [facility] Comment on above: Performed By: #### C BC ####[facility] Szbdwvmbmy869[address] [place], [place] [address]Dr. Erica Abarca NEUT # 4.2 103/ul Normal 1.4-6.5 [facility] Comment on above: Performed By: #### C BC ####[facility] Dfqfpljswf4569 [place] [address]Dr. Erica Abarca Neutrophils/100 WBC (Bld) 73.2 % Normal 43.0-75.0 [facility] Comment on above: Performed By: #### C BC ####[facility] Buomdrcxiw8238 [place] [address]Dr. Erica Abacra Platelet mean volume (Bld) [Entitic vol] 8.6 fL Critically low 9.5-13.5 [facility] Comment on above: Performed By: #### C BC ####[facility] Wbjlvgmvhn9238 [place] [address]Dr. Erica Abarca PLT 302 103/ul Normal 150-450 [facility] Comment on above: Performed By: #### C BC ####[facility] Ptiiipssqd5848[address] [place], [place] [address]Dr. Erica Abarca RBC 3.09 106/ul Critically low 4.70-6.10 [facility] Comment on above: Performed By: #### C BC ####[facility] Wxxgcppaug712[address] [place], [place] [address]Dr. Erica Abarca WBC 5.8 103/ul Normal 4.0-11.0 [facility] Comment on above: Performed By: #### C BC ####[facility] Itjvcqvxih708[address] [place], [place] [address]Dr. Erica Abarca PROF 14(COMP METB)on 023 Albumin [Mass/Vol] 2.8 g/dL Critically low 3.4-5.0 [facility] Comment on above: Performed By: #### C MP ####[facility] Xuitzskekw4241 [place] [address]Dr. Eriac Abarca Albumin/Globulin [Mass ratio] 0.7 {ratio} Normal [facility] Comment on above: Performed By: #### C MP ####[facility] Boqmublqew5896 [place] [address]Dr. Erica Abarca ALP [Catalytic activity/Vol] 92 U/L Normal 46-116 [facility] Comment on above: Performed By: #### C MP ####[facility] Jbxxbtpiar4571 [place] [address]Dr. Erica Abarca ALT [Catalytic activity/Vol] 17 U/L Normal 16-63 [facility] Comment on above: Performed By: #### C MP ####[facility] Hwdsilzhsz77[address] [place], [place] [address]Dr. Erica Abarca Anion gap [Moles/Vol] 10.4 mmol/L Normal [facility] Comment on above: Performed By: #### C MP ####[facility] Iukcihlenj0559[address] [place], [place] [address]Dr. Erica Abarca AST [Catalytic activity/Vol] 20 U/L Normal 15-37 [facility] Comment on above: Performed By: #### C MP ####[facility] Fzjgpztgiz255[address] [place], [place] [address]Dr. Erica Abarca Bilirubin [Mass/Vol] 0.5 mg/dL Normal 0.2-1.0 [facility] Comment on above: Performed By: #### C MP ####[facility] Pkrxtznuba8627[address] [place], [place] [address]Dr. Erica Abarca Calcium [Mass/Vol] 8.2 mg/dL Critically low 8.5-10.1 [facility] Comment on above: Performed By: #### C MP ####[facility] Hrlsqhfqyx099[address] [place], [place] [address]Dr. Erica Abarca Chloride [Moles/Vol] 104 mmol/L Normal 98-107 [facility] Comment on above: Performed By: #### C MP ####[facility] Ztqvzmcjoi89[address] [place], [place] [address]Dr. Erica Abarca CO2 [Moles/Vol] 31.5 mmol/L Normal 21.0-32.0 [facility] Comment on above: Performed By: #### C MP ####[facility] Hzkuqnspdr874[address] [place], [place] [address]Dr. Erica Abarca Creatinine [Mass/Vol] 1.73 mg/dL Critically high 0.70-1.30 [facility] Comment on above: Performed By: #### C MP ####[facility] Hrpxxfjtlr0551 [place] [address]Dr. Erica Abarca EGFR-AF AUSTRIAN 49 mL/min/1.73m2 Critically low >=60 [facility] Comment on above: Performed By: #### C MP ####[facility] Mtucuwxitc6448 [place] [address]Dr. Erica Abarca EGFR-NON AF AUSTRIAN 41 mL/min/1.73m2 Critically low >=60 [facility] Comment on above: Performed By: #### C MP ####[facility] Ibqpdrnyzc704[address] [place], [place] [address]Dr. Erica Abarca Globulin (S) [Mass/Vol] 4.1 g/dL Normal [facility] Comment on above: Performed By: #### C MP ####[facility] Uqbplqywcz[address] [place], [place] [address]Dr. Erica Abarca Glucose [Mass/Vol] 113 mg/dL Critically high 74-[address] [facility] Comment on above: Performed By: #### C MP ####[facility] Vukfhvstnp[address] [place], [place] [address]Dr. Erica Abarca Potassium [Moles/Vol] 3.9 mmol/L Normal 3.5-5.1 [facility] Comment on above: Performed By: #### C MP ####[facility] Ajkgrtnvpy29[address] [place], [place] [address]Dr. Erica Abarca Protein [Mass/Vol] 6.9 g/dL Normal 6.4-8.2 [facility] Comment on above: Performed By: #### C MP ####[facility] Slxcmjzbzx2569 [place] [address]Dr. Erica Abarca Sodium [Moles/Vol] 142 mmol/L Normal 136-145 [facility] Comment on above: Performed By: #### C MP ####[facility] Jnjqhjcwff69[address] [place], [place] [address]Dr. Erica Abarca Urea nitrogen [Mass/Vol] 22.0 mg/dL Critically high 7.0-18.0 [facility] Comment on above: Performed By: #### C MP ####[facility] Pyarqykiao5686 [place] [address]Dr. Erica Abarca Urea nitrogen/Creatinine [Mass ratio] 12.7 mg/mg Normal [facility] Comment on above: Performed By: #### C MP ####[facility] Ujathfjjaf684[address] [place], [place] [address]Dr. Erica Abarca VANCOMYCIN TROUGHon 09-09-19 VANCOMYCIN TROUGH 15.7 ug/ml Normal 5.0-20.0 [facility] Comment on above: Performed By: #### V ANCT ####[facility] Bhfexzhqpx3467[address] [place], [place] [address]Dr. Erica Abarca Office Visiton 09-06-2022 Follow-up visit [id number] Toribio Meza I 1965 M Date Provider Department Center 09/06/2022 [id number]-AIMQUPFLUSTEPHENIE JIMÉNEZ [facility] Family History Problem Relation Age of Onset Cancer Mother Heart failure Mother Other Father Family Status - Relation Status Age at Mother Father Level of Service:48228 GA OFFICE/OUTPATIENT ESTABLISHED MOD MDM 30-39 MIN Reason for Visit and Comments: Hypertension [135588] Hyperlipidemia [182] Congestive Heart Failure [127] Normal [facility] CBC AUTO DIFFon 09-05-2022 BASO # 0.0 103/ul Normal 0.0-0.1 [facility] Comment on above: Performed By: #### C BC ####[facility] Ndkbgpflzb5753 [place] [address]Dr. Shiraemilia Abarca Basophils/100 WBC (Bld) 0.6 % Normal 0.2-2.0 [facility] Comment on above: Performed By: #### C BC ####[facility] Gyrakcilgg1308 [place] [address]Dr. Erica Tevin EO # 0.2 103/ul Normal 0.0-0.7 [facility] Comment on above: Performed By: #### C BC ####[facility] Wpvlqpguzw9122 [place] [address]Dr. Erica Tevin Eosinophils/100 WBC (Bld) 4.1 % Normal 0.9-7.0 [facility] Comment on above: Performed By: #### C BC ####[facility] Kczfffaxvc6411 [place] [address]Dr. Erica Abarca Erythrocyte distribution width (RBC) [Ratio] 21.2 % Critically high 11.0-15.0 [facility] Comment on above: Performed By: #### C BC ####[facility] Pxglbdipmk1584 [place] [address]Dr. Erica Abarca Hematocrit (Bld) [Volume fraction] 24.3 % Critically low 42.0-54.0 [facility] Comment on above: Performed By: #### C BC ####[facility] Mbvnphzjkq844[address] [place], [place] [address]Dr. Erica Abarca Hemoglobin (Bld) [Mass/Vol] 7.0 g/dL Critically low 14.0-18.0 [facility] Comment on above: Performed By: #### C BC ####[facility] Ckxzencffy163[address] [place], [place] [address]Dr. Erica Abarca IG # 0.05 10e3/ul Critically high 0.00-0.03 [facility] Comment on above: Performed By: #### C BC ####[facility] Qthtaxhklj[address] [place] [address]Dr. Erica Abarca IG % 1.1 % Critically high 0.0-0.5 [facility] Comment on above: Performed By: #### C BC ####[facility] Mcqxtwfbwt387[address] [place], [place] [address]Dr. Erica Abarca LYMPH # 0.8 103/ul Critically low 1.2-3.8 [facility] Comment on above: Performed By: #### C BC ####[facility] Npbimojdnw8960[address] [place], [place] [address]Dr. Erica Abarca Lymphocytes/100 WBC (Bld) 16.6 % Critically low 20.5-60.0 [facility] Comment on above: Performed By: #### C BC ####[facility] Kzturfuzfp240[address] [place], [place] [address]Dr. Erica Abarca MANUAL DIFF REQ NO Normal [facility] Comment on above: Performed By: #### C BC ####[facility] [address]ksviq[address] [place] [id number]. Shiraemilia Abarca MCH (RBC) [Entitic mass] 22.6 pg Critically low 25.9-34.0 [facility] Comment on above: Performed By: #### C BC ####[facility] Bfgkajuqbo[address] [place] [address]Dr. Shiraemilia Abarca MCHC (RBC) [Mass/Vol] 28.8 g/dL Critically low 29.9-35.2 [facility] Comment on above: Performed By: #### C BC ####[facility] Qjhcanipcn4548 [place] [address]Dr. Erica Abarca MCV (RBC) [Entitic vol] 78.4 fL Critically low 80.0-94.0 [facility] Comment on above: Performed By: #### C BC ####[facility] Xhhjhebfct780[address] [place], [place] [address]Dr. Erica Abarca MONO # 0.4 103/ul Normal 0.3-0.8 [facility] Comment on above: Performed By: #### C BC ####[facility] Lqezotvnqg1723[address] [place], [place] [address]Dr. Erica Abarca Monocytes/100 WBC (Bld) 7.5 % Normal 1.7-12.0 [facility] Comment on above: Performed By: #### C BC ####[facility] Mtxqcgetvz739[address] [place], [place] [address]Dr. Erica Abarca NEUT # 3.3 103/ul Normal 1.4-6.5 [facility] Comment on above: Performed By: #### C BC ####[facility] Oztffdsbom7836[address] [place], [place] [address]Dr. Erica Abarca Neutrophils/100 WBC (Bld) 70.1 % Normal 43.0-75.0 [facility] Comment on above: Performed By: #### C BC ####[facility] Rzivlhzahh634[address] [place], [place] [address]Dr. Erica Abarca Platelet mean volume (Bld) [Entitic vol] 8.2 fL Critically low 9.5-13.5 [facility] Comment on above: Performed By: #### C BC ####[facility] Pjfyeufgiw6728 [place] [phone]. Erica Abarca PLT 290 103/ul Normal 150-450 [facility] Comment on above: Performed By: #### C BC ####[facility] Ihwyanaorv1251 [place] [id number]. Erica Abarca RBC 3.10 106/ul Critically low 4.70-6.10 [facility] Comment on above: Performed By: #### C BC ####[facility] Rblzhfkjrs1349 [place] [phone]. Erica Abarca WBC 4.6 103/ul Normal 4.0-11.0 [facility] Comment on above: Performed By: #### C BC ####[facility] Blcoxcfjnr8836 [place] [address]Dr. Erica Abarca PROF 14(COMP METB)on 023 Albumin [Mass/Vol] 2.6 g/dL Critically low 3.4-5.0 [facility] Comment on above: Performed By: #### C MP ####[facility] Abdohgrjtm93[address] [place], [place] [address]Dr. Erica Abarca Albumin/Globulin [Mass ratio] 0.6 {ratio} Normal [facility] Comment on above: Performed By: #### C MP ####[facility] Qecptezclw8735 [place] [address]Dr. Erica Abarca ALP [Catalytic activity/Vol] 83 U/L Normal 46-116 [facility] Comment on above: Performed By: #### C MP ####[facility] Jgskguicxp0312 [place] [id number]. Erica Abarca ALT [Catalytic activity/Vol] 17 U/L Normal 16-63 [facility] Comment on above: Performed By: #### C MP ####[facility] Lqkhvcseks7574 [place] [id number]. Erica Abarca Anion gap [Moles/Vol] 10.4 mmol/L Normal [facility] Comment on above: Performed By: #### C MP ####[facility] Vfbnoezasn4882 [place] [address]Dr. Erica Abarca AST [Catalytic activity/Vol] 22 U/L Normal 15-37 [facility] Comment on above: Performed By: #### C MP ####[facility] Azfoocrrea[address] [place] [address]Dr. Erica Abarca Bilirubin [Mass/Vol] 0.4 mg/dL Normal 0.2-1.0 [facility] Comment on above: Performed By: #### C MP ####[facility] Tnxmcrdmzu9610[address] [place], [place] [address]Dr. Erica Abarca Calcium [Mass/Vol] 8.4 mg/dL Critically low 8.5-10.1 [facility] Comment on above: Performed By: #### C MP ####[facility] Mdlgkvkrnz439[address] [place], [place] [address]Dr. Erica Abarca Chloride [Moles/Vol] 104 mmol/L Normal 98-107 [facility] Comment on above: Performed By: #### C MP ####[facility] Ylcrqspilf028[address] [place], [place] [address]Dr. Erica Abarca CO2 [Moles/Vol] 33.0 mmol/L Critically high 21.0-32.0 [facility] Comment on above: Performed By: #### C MP ####[facility] Cwvlnchuhg916[address] [place], [place] [address]Dr. Erica Abarca Creatinine [Mass/Vol] 1.58 mg/dL Critically high 0.70-1.30 [facility] Comment on above: Performed By: #### C MP ####[facility] Tgjllstlqq1818[address] [place], [place] [address]Dr. Erica Abarca EGFR-AF AUSTRIAN 55 mL/min/1.73m2 Critically low >=60 [facility] Comment on above: Performed By: #### C MP ####[facility] Xohxwonqbd8635[address] [place], [place] [address]Dr. Erica Tevin EGFR-NON AF AUSTRIAN 45 mL/min/1.73m2 Critically low >=60 [facility] Comment on above: Performed By: #### C MP ####[facility] Ciugjarjkn8783 [place] [address]Dr. Erica Abarca Globulin (S) [Mass/Vol] 4.2 g/dL Normal [facility] Comment on above: Performed By: #### C MP ####[facility] Mqambokjut3808 [place] [address]Dr. Erica Abarca Glucose [Mass/Vol] 80 mg/dL Normal 74-106 [facility] Comment on above: Performed By: #### C MP ####[facility] Idazehgtga4101 [place] [address]Dr. Erica Tevin Potassium [Moles/Vol] 3.4 mmol/L Critically low 3.5-5.1 [facility] Comment on above: Performed By: #### C MP ####[facility] Okmcqzdnih934[address] [place], [place] [address]Dr. Erica Tevin Protein [Mass/Vol] 6.8 g/dL Normal 6.4-8.2 [facility] Comment on above: Performed By: #### C MP ####[facility] Hjlyiahreq6330[address] [place], [place] [address]Dr. Erica Abarca Sodium [Moles/Vol] 144 mmol/L Normal 136-145 [facility] Comment on above: Performed By: #### C MP ####[facility] Ysofufthap433[address] [place], [place] [address]Dr. Erica Tevin Urea nitrogen [Mass/Vol] 20.0 mg/dL Critically high 7.0-18.0 [facility] Comment on above: Performed By: #### C MP ####[facility] Pmgwwgnsfw0134[address] [place], [place] [address]Dr. Erica Tevin Urea nitrogen/Creatinine [Mass ratio] 12.7 mg/mg Normal [facility] Comment on above: Performed By: #### C MP ####[facility] Zddbvqnfhl7390 [place] [address]Dr. Erica Abarca VANCOMYCIN TROUGHon 09-06-19 23 VANCOMYCIN TROUGH 16.4 ug/ml Normal 5.0-20.0 [facility] Comment on above: Performed By: #### V ANCT ####[facility] Ncgjipnfan5284 [place] [address]Dr. Erica Abarca CBC AUTO DIFFon 09-01-2022 BASO # 0.0 103/ul Normal 0.0-0.1 [facility] Comment on above: Performed By: #### C BC ####[facility] Iwlguiblef999[address] [place], [place] [address]Dr. Erica Abarca Basophils/100 WBC (Bld) 0.6 % Normal 0.2-2.0 [facility] Comment on above: Performed By: #### C BC ####[facility] Dloytonzsa829[address] [place], [place] [address]Dr. Erica Abarca EO # 0.3 103/ul Normal 0.0-0.7 [facility] Comment on above: Performed By: #### C BC ####[facility] Eizljokxkh697[address] [place], [place] [address]Dr. Erica Abarca Eosinophils/100 WBC (Bld) 5.2 % Normal 0.9-7.0 [facility] Comment on above: Performed By: #### C BC ####[facility] Pclcwbmvin0948[address] [place], [place] [address]Dr. Erica Abarca Erythrocyte distribution width (RBC) [Ratio] 21.6 % Critically high 11.0-15.0 [facility] Comment on above: Performed By: #### C BC ####[facility] Pbmgezoffq737[address] [place], [place] [address]Dr. Erica Abarca Hematocrit (Bld) [Volume fraction] 25.0 % Critically low 42.0-54.0 [facility] Comment on above: Performed By: #### C BC ####[facility] Ufdutfehvx829[address] [place], [place] [address]Dr. Erica Abarca Hemoglobin (Bld) [Mass/Vol] 7.2 g/dL Critically low 14.0-18.0 [facility] Comment on above: Performed By: #### C BC ####[facility] Lygdfcaodu676[address] [place], [place] [address]Dr. Erica Abarca IG # 0.02 10e3/ul Normal 0.00-0.03 [facility] Comment on above: Performed By: #### C BC ####[facility] Zjanodtrbm7339 [place] [address]DrCandi Abarca IG % 0.4 % Normal 0.0-0.5 [facility] Comment on above: Performed By: #### C BC ####[facility] Vmvvbomtsx8526 [place] [address]Dr. Erica Abarca LYMPH # 0.9 103/ul Critically low 1.2-3.8 [facility] Comment on above: Performed By: #### C BC ####[facility] Gabgojuzkr7963 [place] [address]DrCandi Abarca Lymphocytes/100 WBC (Bld) 18.2 % Critically low 20.5-60.0 [facility] Comment on above: Performed By: #### C BC ####[facility] Zulwqfpibg258[address] [place], [place] [address]DrCandi Abarca MANUAL DIFF REQ NO Normal [facility] Comment on above: Performed By: #### C BC ####[facility] Dxmpsblsdd1833 [place] [address]DrCandi Abarca MCH (RBC) [Entitic mass] 22.6 pg Critically low 25.9-34.0 [facility] Comment on above: Performed By: #### C BC ####[facility] Aqzjancxwy1374 [place] [address]DrCandi Abarca MCHC (RBC) [Mass/Vol] 28.8 g/dL Critically low 29.9-35.2 [facility] Comment on above: Performed By: #### C BC ####[facility] Uwmgjjzbap2993 [place] [address]DrCandi Abarca MCV (RBC) [Entitic vol] 78.4 fL Critically low 80.0-94.0 [facility] Comment on above: Performed By: #### C BC ####[facility] Hctrjwspab9[address] [place], [place] [address]Dr. Erica Abarca MONO # 0.4 103/ul Normal 0.3-0.8 [facility] Comment on above: Performed By: #### C BC ####[facility] Qvbcyoesxr7228 [place] [id number]. Erica Abarca Monocytes/100 WBC (Bld) 8.4 % Normal 1.7-12.0 [facility] Comment on above: Performed By: #### C BC ####[facility] Ejtavdhbva3963 [place] [address]Dr. Erica Abarca NEUT # 3.4 103/ul Normal 1.4-6.5 [facility] Comment on above: Performed By: #### C BC ####[facility] Lldlfusuen4155 [place] [address]DrCandi Erica Abarca Neutrophils/100 WBC (Bld) 67.2 % Normal 43.0-75.0 [facility] Comment on above: Performed By: #### C BC ####[facility] Avpxmufutv14[address] [place], [place] [id number] Erica Abarca Platelet mean volume (Bld) [Entitic vol] 8.5 fL Critically low 9.5-13.5 [facility] Comment on above: Performed By: #### C BC ####[facility] Eojwezhled5743 [place] [address]Dr. Erica Abarca PLT 276 103/ul Normal 150-450 [facility] Comment on above: Performed By: #### C BC ####[facility] Wdmvodutih8265 [place] [address]DrCandi Erica Abarca RBC 3.19 106/ul Critically low 4.70-6.10 [facility] Comment on above: Performed By: #### C BC ####[facility] Zwvwmrgkgj2248 [place] [phone] Erica Abarca WBC 5.0 103/ul Normal 4.0-11.0 [facility] Comment on above: Performed By: #### C BC ####[facility] Iqjwhoesbi8[address] [place], [place] [address]DrCandi Abarca PROF 14(COMP METB)on 023 Albumin [Mass/Vol] 2.7 g/dL Critically low 3.4-5.0 [facility] Comment on above: Performed By: #### C MP ####[facility] Jbijvptuab6150 [place] [address]Dr. Erica Abarca Albumin/Globulin [Mass ratio] 0.7 {ratio} Normal [facility] Comment on above: Performed By: #### C MP ####[facility] Hpxvbiylnx14[address] [place], [place] [address]Dr. Erica Abarca ALP [Catalytic activity/Vol] 87 U/L Normal 46-116 [facility] Comment on above: Performed By: #### C MP ####[facility] Qsyinpttmo7032[address] [place], [place] [address]Dr. Erica Abarca ALT [Catalytic activity/Vol] 12 U/L Critically low 16-63 [facility] Comment on above: Performed By: #### C MP ####[facility] Nsiaslpttp637172 [address] [place], [place] [address]Dr. Erica Abarca Anion gap [Moles/Vol] 11.7 mmol/L Normal [facility] Comment on above: Performed By: #### C MP ####[facility] Eljxzfnwri6717[address] [place], [place] [address]Dr. Erica Abarca AST [Catalytic activity/Vol] 13 U/L Critically low 15-37 [facility] Comment on above: Performed By: #### C MP ####[facility] Cbjeefibhx0585[address] [place], [place] [address]Dr. Erica Abarca Bilirubin [Mass/Vol] 0.5 mg/dL Normal 0.2-1.0 [facility] Comment on above: Performed By: #### C MP ####[facility] Kdoletcego800[address] [place], [place] [address]Dr. Erica Abarca Calcium [Mass/Vol] 8.0 mg/dL Critically low 8.5-10.1 [facility] Comment on above: Performed By: #### C MP ####[facility] Cusyxbfvaf1930[address] [place], [place] [address]Dr. Erica Abarca Chloride [Moles/Vol] 100 mmol/L Normal 98-107 [facility] Comment on above: Performed By: #### C MP ####[facility] Gucrtmsfdf360[address] [place], [place] [address]Dr. Erica Abarca CO2 [Moles/Vol] 32.9 mmol/L Critically high 21.0-32.0 [facility] Comment on above: Performed By: #### C MP ####[facility] Nxfoxjbubv694[address] [place], [place] [address]Dr. Erica Abarca Creatinine [Mass/Vol] 1.56 mg/dL Critically high 0.70-1.30 [facility] Comment on above: Performed By: #### C MP ####[facility] Xbmojostzj0811[address] [place], [place] [address]Dr. Erica Abarca EGFR-AF AUSTRIAN 56 mL/min/1.73m2 Critically low >=60 [facility] Comment on above: Performed By: #### C MP ####[facility] Hpfwimyhmo34[address] [place], [place] [address]Dr. Erica Abarca EGFR-NON AF AUSTRIAN 46 mL/min/1.73m2 Critically low >=60 [facility] Comment on above: Performed By: #### C MP ####[facility] Esdsnmbqpw8000[address] [place], [place] [address]Dr. Erica Abarca Globulin (S) [Mass/Vol] 3.8 g/dL Normal [facility] Comment on above: Performed By: #### C MP ####[facility] Optosfpqfl337[address] [place], [place] [address]Dr. Erica Abarca Glucose [Mass/Vol] 62 mg/dL Critically low 74-106 [facility] Comment on above: Performed By: #### C MP ####[facility] Kjfkxztref047472 [address] [place], [place] [address]Dr. Erica Abarca Potassium [Moles/Vol] 3.6 mmol/L Normal 3.5-5.1 [facility] Comment on above: Performed By: #### C MP ####[facility] Cdyxykinau797[address] [place], [place] [address]Dr. Erica Abarca Protein [Mass/Vol] 6.5 g/dL Normal 6.4-8.2 [facility] Comment on above: Performed By: #### C MP ####[facility] Llmbqxgngo8301[address] [place], [place] [address]Dr. Shiraemilia Abarca Sodium [Moles/Vol] 141 mmol/L Normal 136-145 [facility] Comment on above: Performed By: #### C MP ####[facility] Dzbzhnaknv907[address] [place], [place] [address]Dr. Erica Abarca Urea nitrogen [Mass/Vol] 20.0 mg/dL Critically high 7.0-18.0 [facility] Comment on above: Performed By: #### C MP ####[facility] Mcckemzyxw440[address] [place], [place] [address]Dr. Erica Abarca Urea nitrogen/Creatinine [Mass ratio] 12.8 mg/mg Normal [facility] Comment on above: Performed By: #### C MP ####[facility] Gwjypzvfeu635[address] [place], [place] [address]Dr. Erica Abarca VANCOMYCIN TROUGHon 09-02-19 VANCOMYCIN TROUGH 15.9 ug/ml Normal 5.0-20.0 [facility] Comment on above: Performed By: #### V ANCT ####[facility] Ymsdiidldu594[address] [place], [place] [address]Dr. Shiraemilia Abarca CBC AUTO DIFFon 08-29-2022 BASO # 0.0 103/ul Normal 0.0-0.1 [facility] Comment on above: Performed By: #### C BC ####[facility] Wdrjbaiobb2750[address] [place], [place] [address]Dr. Shiraemilia Abarca Basophils/100 WBC (Bld) 0.8 % Normal 0.2-2.0 [facility] Comment on above: Performed By: #### C BC ####[facility] Uczrvrlqvg807[address] [place], [place] [address]Dr. Erica Abarca EO # 0.2 103/ul Normal 0.0-0.7 [facility] Comment on above: Performed By: #### C BC ####[facility] Dqavfcsixg3198 [place] [address]Dr. Erica Abarca Eosinophils/100 WBC (Bld) 3.8 % Normal 0.9-7.0 [facility] Comment on above: Performed By: #### C BC ####[facility] Npsnutrawp258[address] [place], [place] [address]Dr. Erica Abarca Erythrocyte distribution width (RBC) [Ratio] 22.4 % Critically high 11.0-15.0 [facility] Comment on above: Result Comment: 2+ a nisocytosis Performed By: #### C BC ####[facility] Rvcjgfkyem074[address] [place], [place] [address]Dr. Erica Abarca Hematocrit (Bld) [Volume fraction] 25.4 % Critically low 42.0-54.0 [facility] Comment on above: Performed By: #### C BC ####[facility] Gyynsedsuq467172 [address] [place], [place] [address]Dr. Erica Abarca Hemoglobin (Bld) [Mass/Vol] 7.4 g/dL Critically low 14.0-18.0 [facility] Comment on above: Performed By: #### C BC ####[facility] Qjfndvynab067272 [address] [place], [place] [address]Dr. Erica Abarca IG # 0.01 10e3/ul Normal 0.00-0.03 [facility] Comment on above: Performed By: #### C BC ####[facility] Ecxcrovivg3885[address] [place], [place] [address]Dr. Erica Abarca IG % 0.2 % Normal 0.0-0.5 [facility] Comment on above: Performed By: #### C BC ####[facility] Nkrpomqrlo475[address] [place], [place] [address]Dr. Erica Abarca LYMPH # 0.7 103/ul Critically low 1.2-3.8 [facility] Comment on above: Performed By: #### C BC ####[facility] Dzhregfkkr8040[address] [place], [place] [address]Dr. Erica Abarca Lymphocytes/100 WBC (Bld) 14.9 % Critically low 20.5-60.0 [facility] Comment on above: Performed By: #### C BC ####[facility] Jzrtydpfgm5428 [place] [id number]. Erica Abarca MANUAL DIFF REQ NO Normal [facility] Comment on above: Performed By: #### C BC ####[facility] Ujlugowonb4387 [place] [phone]. Erica Tevin MCH (RBC) [Entitic mass] 22.7 pg Critically low 25.9-34.0 [facility] Comment on above: Performed By: #### C BC ####[facility] Iugejomacg317172 [address] [place], [place] [address]Dr. Erica Tevin MCHC (RBC) [Mass/Vol] 29.1 g/dL Critically low 29.9-35.2 [facility] Comment on above: Performed By: #### C BC ####[facility] Kqgccrcihn034[address] [place], [place] [address]Dr. Erica Abarca MCV (RBC) [Entitic vol] 77.9 fL Critically low 80.0-94.0 [facility] Comment on above: Performed By: #### C BC ####[facility] Grfxsqywgn1968[address] [place], [place] [address]Dr. Erica Tevin MONO # 0.5 103/ul Normal 0.3-0.8 [facility] Comment on above: Performed By: #### C BC ####[facility] Bnlshulcfq2433[address] [place], [place] [address]Dr. Erica Abarca Monocytes/100 WBC (Bld) 9.9 % Normal 1.7-12.0 [facility] Comment on above: Performed By: #### C BC ####[facility] Zlicqabvys3316[address] [place], [place] [address]Dr. Erica Abarca NEUT # 3.3 103/ul Normal 1.4-6.5 [facility] Comment on above: Performed By: #### C BC ####[facility] Xmibeczxzq2523[address] [place], [place] [address]Dr. Erica Abarca Neutrophils/100 WBC (Bld) 70.4 % Normal 43.0-75.0 [facility] Comment on above: Performed By: #### C BC ####[facility] Sylwjynbjo9168 [place] [address]Dr. Erica Abarca Platelet mean volume (Bld) [Entitic vol] 8.6 fL Critically low 9.5-13.5 [facility] Comment on above: Performed By: #### C BC ####[facility] Tyjnarjbjj5382 [place] [address]Dr. Erica Abarca PLT 269 103/ul Normal 150-450 [facility] Comment on above: Performed By: #### C BC ####[facility] Ojuocpabfy1749 [place] [address]Dr. Erica Abarca RBC 3.26 106/ul Critically low 4.70-6.10 [facility] Comment on above: Performed By: #### C BC ####[facility] Lkhqinvvvm8854 [place] [address]Dr. Erica Abarca WBC 4.8 103/ul Normal 4.0-11.0 [facility] Comment on above: Performed By: #### C BC ####[facility] Ljvgavqmri449[address] [place], [place] [address]Dr. Erica Abarca PROF 14(COMP METB)on 023 Albumin [Mass/Vol] 2.7 g/dL Critically low 3.4-5.0 [facility] Comment on above: Performed By: #### C MP ####[facility] Zujlxgnodu010[address] [place], [place] [address]Dr. Erica Abarca Albumin/Globulin [Mass ratio] 0.6 {ratio} Normal [facility] Comment on above: Performed By: #### C MP ####[facility] Qgarydplax4464 [place] [address]Dr. Erica Abarca ALP [Catalytic activity/Vol] 83 U/L Normal 46-116 [facility] Comment on above: Performed By: #### C MP ####[facility] Rbiebdclof340[address] [place], [place] [address]Dr. Erica Abarca ALT [Catalytic activity/Vol] 12 U/L Critically low 16-63 [facility] Comment on above: Performed By: #### C MP ####[facility] Pdxanushzg8236 [place] [id number]. Erica Abarca Anion gap [Moles/Vol] 11.3 mmol/L Normal [facility] Comment on above: Performed By: #### C MP ####[facility] Oildmrznhw7774 [place] [id number]. Erica Abarca AST [Catalytic activity/Vol] 16 U/L Normal 15-37 [facility] Comment on above: Performed By: #### C MP ####[facility] Pedpcxjpji6918 [place] [address]Dr. Erica Abarca Bilirubin [Mass/Vol] 0.6 mg/dL Normal 0.2-1.0 [facility] Comment on above: Performed By: #### C MP ####[facility] Vjdffgozxw47[address] [place], [place] [address]Dr. Erica Abarca Calcium [Mass/Vol] 8.5 mg/dL Normal 8.5-10.1 [facility] Comment on above: Performed By: #### C MP ####[facility] Ldupeveizk023[address] [place], [place] [address]Dr. Erica Abarca Chloride [Moles/Vol] 102 mmol/L Normal 98-107 [facility] Comment on above: Performed By: #### C MP ####[facility] Ffrmfukgfo0[address] [place], [place] [id number]. Erica Abarca CO2 [Moles/Vol] 32.0 mmol/L Normal 21.0-32.0 [facility] Comment on above: Performed By: #### C MP ####[facility] Duagyajfmr9166 [place] [id number]. Erica Abarca Creatinine [Mass/Vol] 1.79 mg/dL Critically high 0.70-1.30 [facility] Comment on above: Performed By: #### C MP ####[facility] [address]ufnmeqvwq[address] [place] [address]Dr. Erica Abarca EGFR-AF AUSTRIAN 48 mL/min/1.73m2 Critically low >=60 [facility] Comment on above: Performed By: #### C MP ####[facility] Bfomzniqec64[address] [place] [id number]. Erica Abarca EGFR-NON AF AUSTRIAN 39 mL/min/1.73m2 Critically low >=60 [facility] Comment on above: Performed By: #### C MP ####[facility] Oyolizlxff8357 [place] [id number]. Erica Abarca Globulin (S) [Mass/Vol] 4.2 g/dL Normal [facility] Comment on above: Performed By: #### C MP ####[facility] Jhbjcfspei2888 [place] [address]Dr. Erica Abarca Glucose [Mass/Vol] 79 mg/dL Normal 74-106 [facility] Comment on above: Performed By: #### C MP ####[facility] Fxmwuldjzz3412 [place] [address]Dr. Erica Abarca Potassium [Moles/Vol] 3.3 mmol/L Critically low 3.5-5.1 [facility] Comment on above: Performed By: #### C MP ####[facility] Mxkspdurco7306 [place] [address]Dr. Erica Abarca Protein [Mass/Vol] 6.9 g/dL Normal 6.4-8.2 [facility] Comment on above: Performed By: #### C MP ####[facility] Fzvedfpjcf[address] [place], [place] [address]Dr. Erica Abarca Sodium [Moles/Vol] 142 mmol/L Normal 136-145 [facility] Comment on above: Performed By: #### C MP ####[facility] Jzrjuwjslj5892 [place] [address]Dr. Erica Abarca Urea nitrogen [Mass/Vol] 19.0 mg/dL Critically high 7.0-18.0 [facility] Comment on above: Performed By: #### C MP ####[facility] Qsmgjjxwfa6729 [place] [address]Dr. Erica Abarca Urea nitrogen/Creatinine [Mass ratio] 10.6 mg/mg Normal [facility] Comment on above: Performed By: #### C MP ####[facility] Jngmwzburp3901 [place] [id number]. Erica Abarca VANCOMYCIN TROUGHon 08-30-19 VANCOMYCIN TROUGH 16.9 ug/ml Normal 5.0-20.0 [facility] Comment on above: Performed By: #### V ANCT ####[facility] Otqimtvtox4688 [place] [address]Dr. Erica Abarca CBC AUTO DIFFon 08-25-2022 BASO # 0.1 103/ul Normal 0.0-0.1 [facility] Comment on above: Performed By: #### C BC ####[facility] Onkqsaoygj3320 [place] [address]Dr. Erica Tevin Basophils/100 WBC (Bld) 1.2 % Normal 0.2-2.0 [facility] Comment on above: Performed By: #### C BC ####[facility] Elyhpbtnxl[address] [place], [place] [address]Dr. Erica Tevin EO # 0.2 103/ul Normal 0.0-0.7 [facility] Comment on above: Performed By: #### C BC ####[facility] Lslgvavrjx22[address] [place], [place] [address]Dr. Erica Tevin Eosinophils/100 WBC (Bld) 3.9 % Normal 0.9-7.0 [facility] Comment on above: Performed By: #### C BC ####[facility] Eawbamwctx[address] [place], [place] [address]Dr. Erica Abarca Erythrocyte distribution width (RBC) [Ratio] 22.2 % Critically high 11.0-15.0 [facility] Comment on above: Performed By: #### C BC ####[facility] Mexczjnzqy257[address] [place], [place] [address]Dr. Erica Abarca Hematocrit (Bld) [Volume fraction] 27.1 % Critically low 42.0-54.0 [facility] Comment on above: Performed By: #### C BC ####[facility] Qunrilwdff37[address] [place], [place] [address]Dr. Erica Tevin Hemoglobin (Bld) [Mass/Vol] 7.9 g/dL Critically low 14.0-18.0 [facility] Comment on above: Performed By: #### C BC ####[facility] Nyecjmpnkf5486 [place] [address]DrCandi Abarca IG # 0.02 10e3/ul Normal 0.00-0.03 [facility] Comment on above: Performed By: #### C BC ####[facility] Myqrlbnsez6226 [place] [address]DrCandi Abarca IG % 0.4 % Normal 0.0-0.5 [facility] Comment on above: Performed By: #### C BC ####[facility] Gikhoemaco4139 [place] [address]DrCandi Abarca LYMPH # 0.7 103/ul Critically low 1.2-3.8 [facility] Comment on above: Performed By: #### C BC ####[facility] Oqcjzwvsjr0293 [place] [address]DrCandi Abarca Lymphocytes/100 WBC (Bld) 14.5 % Critically low 20.5-60.0 [facility] Comment on above: Performed By: #### C BC ####[facility] Kuyuubinam8109 [place] [address]DrCandi Abarca MANUAL DIFF REQ NO Normal [facility] Comment on above: Performed By: #### C BC ####[facility] Nxehuhhjrz0354 [place] [address]DrCandi Abarca MCH (RBC) [Entitic mass] 22.7 pg Critically low 25.9-34.0 [facility] Comment on above: Performed By: #### C BC ####[facility] Hjqnwpwopu0735 [place] [address]DrCandi Abarca MCHC (RBC) [Mass/Vol] 29.2 g/dL Critically low 29.9-35.2 [facility] Comment on above: Performed By: #### C BC ####[facility] Qqxmudmqum3454 [place] [address]DrCandi Abarca MCV (RBC) [Entitic vol] 77.9 fL Critically low 80.0-94.0 [facility] Comment on above: Performed By: #### C BC ####[facility] Xiupnrpfom6573 [place] [address]DrCandi Erica Abarca MONO # 0.4 103/ul Normal 0.3-0.8 [facility] Comment on above: Performed By: #### C BC ####[facility] Rlwjnwplqq6078 [place] [id number]. Erica Tevin Monocytes/100 WBC (Bld) 8.0 % Normal 1.7-12.0 [facility] Comment on above: Performed By: #### C BC ####[facility] Zluvnubsaa1708 [place] [address]Dr. Erica Abarca NEUT # 3.5 103/ul Normal 1.4-6.5 [facility] Comment on above: Performed By: #### C BC ####[facility] Fodbebooga1866 [place] [address]Dr. Erica Abarca Neutrophils/100 WBC (Bld) 72.0 % Normal 43.0-75.0 [facility] Comment on above: Performed By: #### C BC ####[facility] Myabgjnogc2967[address] [place], [place] [address]Dr. Erica Tevin Platelet mean volume (Bld) [Entitic vol] 8.6 fL Critically low 9.5-13.5 [facility] Comment on above: Performed By: #### C BC ####[facility] Opuxjtlhmx3210 [place] [phone]. Erica Tevin PLT 292 103/ul Normal 150-450 [facility] Comment on above: Performed By: #### C BC ####[facility] Jrgaxoevcb5457 [place] [address]Dr. Erica Abarca RBC 3.48 106/ul Critically low 4.70-6.10 [facility] Comment on above: Performed By: #### C BC ####[facility] Sjdchteqvn4486 [place] [address]Dr. Erica Abarca WBC 4.9 103/ul Normal 4.0-11.0 [facility] Comment on above: Performed By: #### C BC ####[facility] Jcpsagrchn0966 [place] [address]DrCandi Abarca PROF 14(COMP METB)on 023 Albumin [Mass/Vol] 2.7 g/dL Critically low 3.4-5.0 [facility] Comment on above: Performed By: #### C MP ####[facility] Fcgtipwrhg6368 [place] [address]DrCandi Abarca Albumin/Globulin [Mass ratio] 0.7 {ratio} Normal [facility] Comment on above: Performed By: #### C MP ####[facility] Auswrvagme9039[address] [place], [place] [address]Dr. Erica Abarca ALP [Catalytic activity/Vol] 71 U/L Normal 46-116 [facility] Comment on above: Performed By: #### C MP ####[facility] Gvbxxhizot5780[address] [place], [place] [address]Dr. Erica Abarca ALT [Catalytic activity/Vol] 15 U/L Critically low 16-63 [facility] Comment on above: Performed By: #### C MP ####[facility] Moycsuxlxu14[address] [place], [place] [address]DrCandi Abarca Anion gap [Moles/Vol] 10.6 mmol/L Normal [facility] Comment on above: Performed By: #### C MP ####[facility] Fzkjrnwhva4022[address] [place], [place] [address]DrCandi Abarca AST [Catalytic activity/Vol] 22 U/L Normal 15-37 [facility] Comment on above: Performed By: #### C MP ####[facility] Phbzziykee0477 [place] [address]DrCandi Abarca Bilirubin [Mass/Vol] 0.6 mg/dL Normal 0.2-1.0 [facility] Comment on above: Performed By: #### C MP ####[facility] Jkhfekfoes5683 [place] [address]DrCandi Abarca Calcium [Mass/Vol] 8.7 mg/dL Normal 8.5-10.1 [facility] Comment on above: Performed By: #### C MP ####[facility] Ayabjbjxne5444 [place] [address]Dr. Erica Tevin Chloride [Moles/Vol] 102 mmol/L Normal 98-107 [facility] Comment on above: Performed By: #### C MP ####[facility] Mgbvrpebdr9422 [place] [address]Dr. Erica Abarca CO2 [Moles/Vol] 32.7 mmol/L Critically high 21.0-32.0 [facility] Comment on above: Performed By: #### C MP ####[facility] Wpviafsfvt7376 [place] [address]Dr. Erica Tevin Creatinine [Mass/Vol] 1.66 mg/dL Critically high 0.70-1.30 [facility] Comment on above: Performed By: #### C MP ####[facility] Sksetokayd098[address] [place], [place] [address]Dr. Erica Tevin EGFR-AF AUSTRIAN 49 mL/min/1.73m2 Critically low >=60 [facility] Comment on above: Performed By: #### C MP ####[facility] Nrhlpwgvjd0510[address] [place], [place] [address]Dr. Erica Tevin EGFR-NON AF AUSTRIAN 40 mL/min/1.73m2 Critically low >=60 [facility] Comment on above: Performed By: #### C MP ####[facility] Mqkfwbjtso4731 [place] [address]Dr. Erica Tevin Globulin (S) [Mass/Vol] 4.1 g/dL Normal [facility] Comment on above: Performed By: #### C MP ####[facility] Xocncolmpe2593 [place] [address]Dr. Erica Abarca Glucose [Mass/Vol] 129 mg/dL Critically high 74-[address] [facility] Comment on above: Performed By: #### C MP ####[facility] Vwlttintcb4740 [place] [address]Dr. Erica Abarca Potassium [Moles/Vol] 3.3 mmol/L Critically low 3.5-5.1 [facility] Comment on above: Performed By: #### C MP ####[facility] Pvankxfhbc6[address] [place], [place] [address]Dr. Erica Abarca Protein [Mass/Vol] 6.8 g/dL Normal 6.4-8.2 [facility] Comment on above: Performed By: #### C MP ####[facility] Sudclpzdgl3033[address] [place], [place] [address]Dr. Erica Abarca Sodium [Moles/Vol] 142 mmol/L Normal 136-145 [facility] Comment on above: Performed By: #### C MP ####[facility] Jrupkbylil689[address] [place], [place] [address]Dr. Erica Abarca Urea nitrogen [Mass/Vol] 16.0 mg/dL Normal 7.0-18.0 [facility] Comment on above: Performed By: #### C MP ####[facility] Eapahakiwi3236[address] [place], [place] [address]Dr. Erica Abarca Urea nitrogen/Creatinine [Mass ratio] 9.6 mg/mg Normal [facility] Comment on above: Performed By: #### C MP ####[facility] Hncajmunsn36[address] [place], [place] [address]Dr. Erica Abarca VANCOMYCIN TROUGHon 08-26-19 VANCOMYCIN TROUGH 25.4 ug/ml Critically high 5.0-20.0 [facility] Comment on above: Performed By: #### V ANCT ####[facility] Ynwjriazzf0620[address] [place], [place] [address]Dr. Erica Abarca CBC AUTO DIFFon 08-23-2022 BASO # 0.1 103/ul Normal 0.0-0.1 [facility] Comment on above: Performed By: #### C BC ####[facility] Ialiagqmpb606[address] [place], [place] [address]Dr. Erica Abarca Basophils/100 WBC (Bld) 0.7 % Normal 0.2-2.0 [facility] Comment on above: Performed By: #### C BC ####[facility] Edxvtaxegp037[address] [place], [place] [address]Dr. Erica Abarca EO # 0.2 103/ul Normal 0.0-0.7 [facility] Comment on above: Performed By: #### C BC ####[facility] Cabybytxrz6451 [place] [address]Dr. Erica Abarca Eosinophils/100 WBC (Bld) 3.1 % Normal 0.9-7.0 [facility] Comment on above: Performed By: #### C BC ####[facility] Gnfiqpfxju0531 [place] [address]Dr. Erica Abarca Erythrocyte distribution width (RBC) [Ratio] 22.2 % Critically high 11.0-15.0 [facility] Comment on above: Performed By: #### C BC ####[facility] Psmgszietl812[address] [place], [place] [address]Dr. Erica Abarca Hematocrit (Bld) [Volume fraction] 28.5 % Critically low 42.0-54.0 [facility] Comment on above: Performed By: #### C BC ####[facility] Fzgyracige6640[address] [place], [place] [address]Dr. Erica Abarca Hemoglobin (Bld) [Mass/Vol] 8.4 g/dL Critically low 14.0-18.0 [facility] Comment on above: Performed By: #### C BC ####[facility] Haxzbqnqrh396[address] [place], [place] [address]Dr. Erica Abarca IG # 0.02 10e3/ul Normal 0.00-0.03 [facility] Comment on above: Performed By: #### C BC ####[facility] Raergicyvs0291 [place] [address]Dr. Erica Abarca IG % 0.3 % Normal 0.0-0.5 [facility] Comment on above: Performed By: #### C BC ####[facility] Utbgiepnsb427[address] [place], [place] [address]Dr. Erica Abarca LYMPH # 0.8 103/ul Critically low 1.2-3.8 [facility] Comment on above: Performed By: #### C BC ####[facility] Tdmrhaquaq2879 [place] [address]Dr. Erica Abarca Lymphocytes/100 WBC (Bld) 12.5 % Critically low 20.5-60.0 [facility] Comment on above: Performed By: #### C BC ####[facility] Saxmgvqlkt0860 [place] [address]Dr. Erica Abarca MANUAL DIFF REQ NO Normal [facility] Comment on above: Performed By: #### C BC ####[facility] Fapsqlemsq3759 [place] [address]Dr. Erica Abarca MCH (RBC) [Entitic mass] 22.6 pg Critically low 25.9-34.0 [facility] Comment on above: Performed By: #### C BC ####[facility] Ephvhakoth6800[address] [place], [place] [address]Dr. Erica Abarca MCHC (RBC) [Mass/Vol] 29.5 g/dL Critically low 29.9-35.2 [facility] Comment on above: Result Comment: Slig ht Hypochromasia Present Performed By: #### C BC ####[facility] Wfcqbmsqaq5840[address] [place], [place] [address]Dr. Erica Abarca MCV (RBC) [Entitic vol] 76.8 fL Critically low 80.0-94.0 [facility] Comment on above: Result Comment: Slig ht Microcytosis Present Performed By: #### C BC ####[facility] Ajfumrowct410[address] [place], [place] [address]Dr. Erica Abarca MONO # 0.4 103/ul Normal 0.3-0.8 [facility] Comment on above: Performed By: #### C BC ####[facility] Osjjfuxcmn588[address] [place], [place] [address]Dr. Erica Abarca Monocytes/100 WBC (Bld) 5.7 % Normal 1.7-12.0 [facility] Comment on above: Performed By: #### C BC ####[facility] Gziwgipuaw[address] [place], [place] [address]Dr. Erica Abarca NEUT # 5.2 103/ul Normal 1.4-6.5 [facility] Comment on above: Performed By: #### C BC ####[facility] Weogyirsab6384 [place] [address]Dr. Erica Abarca Neutrophils/100 WBC (Bld) 77.7 % Critically high 43.0-75.0 [facility] Comment on above: Performed By: #### C BC ####[facility] Bxdrhxbbnc4949 [place] [address]Dr. Erica Abarca Platelet mean volume (Bld) [Entitic vol] 8.4 fL Critically low 9.5-13.5 [facility] Comment on above: Performed By: #### C BC ####[facility] Tefmhhayzm1897 [place] [address]Dr. Erica Abarca PLT 339 103/ul Normal 150-450 [facility] Comment on above: Performed By: #### C BC ####[facility] Elwxnnohre1429 [place] [address]Dr. Erica Abarca RBC 3.71 106/ul Critically low 4.70-6.10 [facility] Comment on above: Performed By: #### C BC ####[facility] Otovfmwnex8811 [place] [address]Dr. Erica Abarca WBC 6.7 103/ul Normal 4.0-11.0 [facility] Comment on above: Performed By: #### C BC ####[facility] Cektzfuips9654 [place] [address]Dr. Erica Abarca PROF 14(COMP METB)on 023 Albumin [Mass/Vol] 2.9 g/dL Critically low 3.4-5.0 [facility] Comment on above: Performed By: #### C MP ####[facility] Khodbzdtrv2920 [place] [address]Dr. Erica Abarca Albumin/Globulin [Mass ratio] 0.8 {ratio} Normal [facility] Comment on above: Performed By: #### C MP ####[facility] Zirmwmacvu0382 [place] [address]Dr. Erica Abarca ALP [Catalytic activity/Vol] 87 U/L Normal 46-116 [facility] Comment on above: Performed By: #### C MP ####[facility] Zyharzhqef0226 [place] [address]Dr. Erica Abarca ALT [Catalytic activity/Vol] 15 U/L Critically low 16-63 [facility] Comment on above: Performed By: #### C MP ####[facility] Pnbmguiemh3873 [place] [address]Dr. Erica Abarca Anion gap [Moles/Vol] 12.7 mmol/L Normal Th [facility] Comment on above: Performed By: #### C MP ####[facility] Ccxlrnvbqv0140 [place] [address]Dr. Erica Abarca AST [Catalytic activity/Vol] 23 U/L Normal 15-37 [facility] Comment on above: Performed By: #### C MP ####[facility] Wsnxeurphi7103 [place] [address]Dr. Erica Tevin Bilirubin [Mass/Vol] 0.6 mg/dL Normal 0.2-1.0 [facility] Comment on above: Performed By: #### C MP ####[facility] Tkdxxnbkpq3882 [place] [address]Dr. Erica Abarca Calcium [Mass/Vol] 8.1 mg/dL Critically low 8.5-10.1 [facility] Comment on above: Performed By: #### C MP ####[facility] Cqgzlqnxfh4839 [place] [address]Dr. Erica Tevin Chloride [Moles/Vol] 100 mmol/L Normal 98-107 [facility] Comment on above: Performed By: #### C MP ####[facility] Vvybenhwak9904 [place] [address]Dr. Erica Abarca CO2 [Moles/Vol] 31.1 mmol/L Normal 21.0-32.0 [facility] Comment on above: Performed By: #### C MP ####[facility] Bqcrvljfdk[address] [place], [place] [address]Dr. Erica Tevin Creatinine [Mass/Vol] 1.63 mg/dL Critically high 0.70-1.30 [facility] Comment on above: Performed By: #### C MP ####[facility] Mjchktgjdi7006 [place] [address]Dr. Erica Abarca EGFR-AF AUSTRIAN 53 mL/min/1.73m2 Critically low >=60 [facility] Comment on above: Performed By: #### C MP ####[facility] Pjzempjjpk0890 [place] [address]Dr. Erica Tevin EGFR-NON AF AUSTRIAN 44 mL/min/1.73m2 Critically low >=60 [facility] Comment on above: Performed By: #### C MP ####[facility] Mwrisollyr6742 [place] [id number]. Erica Tevin Globulin (S) [Mass/Vol] 3.8 g/dL Normal [facility] Comment on above: Performed By: #### C MP ####[facility] Qzauykbywg2725 [place] [address]Dr. Erica Abarca Glucose [Mass/Vol] 259 mg/dL Critically high 74-106 [facility] Comment on above: Performed By: #### C MP ####[facility] Gcqzlpyyrz0649 [place] [address]Dr. Shiraemilia Tevin Potassium [Moles/Vol] 3.8 mmol/L Normal 3.5-5.1 [facility] Comment on above: Performed By: #### C MP ####[facility] Zvcrgqgfzx0422 [place] [address]Dr. Erica Abarca Protein [Mass/Vol] 6.7 g/dL Normal 6.4-8.2 [facility] Comment on above: Performed By: #### C MP ####[facility] Jdbsxdddhb1108 [place] [address]Dr. Erica Abarca Sodium [Moles/Vol] 140 mmol/L Normal 136-145 [facility] Comment on above: Performed By: #### C MP ####[facility] Fyxtrdswgd6320 [place] [address]Dr. Erica Abarca Urea nitrogen [Mass/Vol] 16.0 mg/dL Normal 7.0-18.0 [facility] Comment on above: Performed By: #### C MP ####[facility] Jqzyyqhule8907 [place] [address]Dr. Erica Abarca Urea nitrogen/Creatinine [Mass ratio] 9.8 mg/mg Normal [facility] Comment on above: Performed By: #### C MP ####[facility] Dexuhgozmo05[address] [place], [place] [address]Dr. Erica Abarca VANCOMYCIN TROUGHon 08-24-19 VANCOMYCIN TROUGH 24.7 ug/ml Critically high 5.0-20.0 [facility] Comment on above: Performed By: #### V ANCT ####[facility] Obuxgwlwyd7218[address] [place], [place] [address]Dr. Erica Abarca CBC AUTO DIFFon 08-20-2022 BASO # 0.1 103/ul Normal 0.0-0.1 [facility] Comment on above: Performed By: #### C BC ####[facility] Rrtmqvsoap4444[address] [place], [place] [address]Dr. Erica Abarca Basophils/100 WBC (Bld) 0.7 % Normal 0.2-2.0 [facility] Comment on above: Performed By: #### C BC ####[facility] Ymyvyohmlc9924[address] [place], [place] [address]Dr. Erica Abarca EO # 0.1 103/ul Normal 0.0-0.7 [facility] Comment on above: Performed By: #### C BC ####[facility] Zjctcrakom8968[address] [place], [place] [address]Dr. Erica Abarca Eosinophils/100 WBC (Bld) 1.7 % Normal 0.9-7.0 [facility] Comment on above: Performed By: #### C BC ####[facility] Uhyckwvage81967[address] [place], [place] [address]Dr. Erica Abarca Erythrocyte distribution width (RBC) [Ratio] 21.3 % Critically high 11.0-15.0 [facility] Comment on above: Performed By: #### C BC ####[facility] Kqynkurqie6559[address] [place], [place] [address]Dr. Erica Abarca Hematocrit (Bld) [Volume fraction] 30.5 % Critically low 42.0-54.0 [facility] Comment on above: Performed By: #### C BC ####[facility] Ljvdqukhvw7627 [place] [address]DrCandi Abarca Hemoglobin (Bld) [Mass/Vol] 8.9 g/dL Critically low 14.0-18.0 [facility] Comment on above: Performed By: #### C BC ####[facility] Plkzvqaowu9485 [place] [address]DrCandi Abarca IG # 0.04 10e3/ul Critically high 0.00-0.03 [facility] Comment on above: Performed By: #### C BC ####[facility] Vdyvjkebuc0567[address] [place], [place] [address]DrCandi Abarca IG % 0.5 % Normal 0.0-0.5 [facility] Comment on above: Performed By: #### C BC ####[facility] Zkussfheio0490[address] [place], [place] [address]DrCandi Abarca LYMPH # 1.1 103/ul Critically low 1.2-3.8 [facility] Comment on above: Performed By: #### C BC ####[facility] Zmjbujljja2909[address] [place], [place] [address]DrCandi Abarca Lymphocytes/100 WBC (Bld) 13.6 % Critically low 20.5-60.0 [facility] Comment on above: Performed By: #### C BC ####[facility] Dflmifrxwh7032[address] [place], [place] [address]DrCandi Abarca MANUAL DIFF REQ NO Normal [facility] Comment on above: Performed By: #### C BC ####[facility] Ipknxkmkiy4330[address] [place], [place] [address]DrCandi Abarca MCH (RBC) [Entitic mass] 22.4 pg Critically low 25.9-34.0 [facility] Comment on above: Performed By: #### C BC ####[facility] Xeghejixtt925[address] [place], [place] [address]DrCandi Abarca MCHC (RBC) [Mass/Vol] 29.2 g/dL Critically low 29.9-35.2 [facility] Comment on above: Performed By: #### C BC ####[facility] Yrmygaaurf[address] [place], [place] [address]DrCandi Abarca MCV (RBC) [Entitic vol] 76.8 fL Critically low 80.0-94.0 [facility] Comment on above: Performed By: #### C BC ####[facility] Onsweawjrz[address] [place], [place] [address]DrCandi Abarca MONO # 0.5 103/ul Normal 0.3-0.8 [facility] Comment on above: Performed By: #### C BC ####[facility] Qhjbrcpjdc16[address] [place], [place] [address]DrCandi Abarca Monocytes/100 WBC (Bld) 6.4 % Normal 1.7-12.0 [facility] Comment on above: Performed By: #### C BC ####[facility] Bxdzrhtpwa500[address] [place], [place] [address]DrCandi Abarca NEUT # 6.2 103/ul Normal 1.4-6.5 [facility] Comment on above: Performed By: #### C BC ####[facility] Fpksdoykya494[address] [place], [place] [address]DrCandi Abarca Neutrophils/100 WBC (Bld) 77.1 % Critically high 43.0-75.0 [facility] Comment on above: Performed By: #### C BC ####[facility] Raqvtdbebk668[address] [place], [place] [address]DrCandi Abarca Platelet mean volume (Bld) [Entitic vol] 8.3 fL Critically low 9.5-13.5 [facility] Comment on above: Performed By: #### C BC ####[facility] Sdnxegfktu[address] [place], [place] [address]DrCandi Abarca PLT 377 103/ul Normal 150-450 [facility] Comment on above: Performed By: #### C BC ####[facility] Bqlzfybkcr524172 [address] [place], [place] [address]DrCandi Abarca RBC 3.97 106/ul Critically low 4.70-6.10 [facility] Comment on above: Performed By: #### C BC ####[facility] Yxlobvhkzd[address] [place] [address]Dr. Erica Abarca WBC 8.1 103/ul Normal 4.0-11.0 [facility] Comment on above: Performed By: #### C BC ####[facility] Ghwbhqxmii14[address] [place], [place] [address]Dr. Erica Abarca PROF 14(COMP METB)on 023 Albumin [Mass/Vol] 2.8 g/dL Critically low 3.4-5.0 [facility] Comment on above: Performed By: #### C MP ####[facility] Lrrlvfomva401[address] [place], [place] [address]Dr. Erica Abarca Albumin/Globulin [Mass ratio] 0.7 {ratio} Normal [facility] Comment on above: Performed By: #### C MP ####[facility] Jslcplumrb7289[address] [place], [place] [address]Dr. Erica Abarca ALP [Catalytic activity/Vol] 74 U/L Normal 46-116 [facility] Comment on above: Performed By: #### C MP ####[facility] Xixbeganrf669[address] [place], [place] [address]Dr. Erica Abarca ALT [Catalytic activity/Vol] 12 U/L Critically low 16-63 [facility] Comment on above: Performed By: #### C MP ####[facility] Kyltlcdyog176[address] [place], [place] [address]Dr. Erica Abarca Anion gap [Moles/Vol] 9.7 mmol/L Normal [facility] Comment on above: Performed By: #### C MP ####[facility] Xbcdeefebm8736[address] [place], [place] [address]Dr. Erica Abarca AST [Catalytic activity/Vol] 24 U/L Normal 15-37 [facility] Comment on above: Performed By: #### C MP ####[facility] Wmdjreoyzd815[address] [place], [place] [address]Dr. Erica Abarca Bilirubin [Mass/Vol] 1.0 mg/dL Normal 0.2-1.0 [facility] Comment on above: Performed By: #### C MP ####[facility] Qxifbpftav771872 [address] [place], [place] [address]Dr. Erica Abarca Calcium [Mass/Vol] 8.5 mg/dL Normal 8.5-10.1 [facility] Comment on above: Performed By: #### C MP ####[facility] Vzppwsmykw479372 [address] [place], [place] [address]Dr. Erica Abarca Chloride [Moles/Vol] 96 mmol/L Critically low 98-107 [facility] Comment on above: Performed By: #### C MP ####[facility] Zstpxwifvf7075[address] [place], [place] [address]Dr. Erica Abarca CO2 [Moles/Vol] 30.9 mmol/L Normal 21.0-32.0 [facility] Comment on above: Performed By: #### C MP ####[facility] Hwntvfcjtq059672 [address] [place], [place] [address]Dr. Erica Abarca Creatinine [Mass/Vol] 1.54 mg/dL Critically high 0.70-1.30 [facility] Comment on above: Performed By: #### C MP ####[facility] Deztubanqw287[address] [place], [place] [address]Dr. Erica Abarca EGFR-AF AUSTRIAN 57 mL/min/1.73m2 Critically low >=60 [facility] Comment on above: Performed By: #### C MP ####[facility] Hbnwkmebff887[address] [place], [place] [address]Dr. Erica Abarca EGFR-NON AF AUSTRIAN 47 mL/min/1.73m2 Critically low >=60 [facility] Comment on above: Performed By: #### C MP ####[facility] Nndyjzyzeu6027[address] [place], [place] [address]Dr. Erica Abarca Globulin (S) [Mass/Vol] 4.2 g/dL Normal [facility] Comment on above: Performed By: #### C MP ####[facility] Truzxjfvtj479172 [address] [place], [place] [address]Dr. Erica Abarca Glucose [Mass/Vol] 260 mg/dL Critically high 74-[address] [facility] Comment on above: Performed By: #### C MP ####[facility] Esamepveit[address] [place] [address]Dr. Erica Abarca Potassium [Moles/Vol] 3.6 mmol/L Normal 3.5-5.1 [facility] Comment on above: Performed By: #### C MP ####[facility] Ztyqyventy070372 [address] [place], [place] [address]Dr. Erica Abarca Protein [Mass/Vol] 7.0 g/dL Normal 6.4-8.2 [facility] Comment on above: Performed By: #### C MP ####[facility] Vssfowtdmy5900[address] [place], [place] [address]Dr. Erica Abarca Sodium [Moles/Vol] 133 mmol/L Critically low 136-145 [facility] Comment on above: Performed By: #### C MP ####[facility] Muvbsthtks979[address] [place], [place] [address]Dr. Erica Abarca Urea nitrogen [Mass/Vol] 17.0 mg/dL Normal 7.0-18.0 [facility] Comment on above: Performed By: #### C MP ####[facility] Cwjohafxto0433[address] [place], [place] [address]Dr. Erica Abarca Urea nitrogen/Creatinine [Mass ratio] 11.0 mg/mg Normal [facility] Comment on above: Performed By: #### C MP ####[facility] Hzpdckzxsh523272 [address] [place], [place] [address]Dr. Erica Abarca VANCOMYCIN TROUGHon 08-21-19 VANCOMYCIN TROUGH 17.6 ug/ml Normal 5.0-20.0 [facility] Comment on above: Performed By: #### V ANCT ####[facility] Oaluhiyavu5477[address] [place], [place] [address]Dr. Erica Abarca BNPon 08-19-2022 Natriuretic peptide B (Bld) [Mass/Vol] 2515.0 pg/mL Critically high <=900.0 [facility] Comment on above: Performed By: #### B FURNITURE DUSTER, CMP ####[facility] Uyfmnqehch0454 [place] [id number]. Erica Abarca CBC AUTO DIFFon 08-19-2022 BASO # 0.0 103/ul Normal 0.0-0.1 [facility] Comment on above: Performed By: #### C BC ####[facility] Ugibhrzjej6089 [place] [id number]. Shiraemilia Abarca Basophils/100 WBC (Bld) 0.6 % Normal 0.2-2.0 [facility] Comment on above: Performed By: #### C BC ####[facility] Zyeexyafkr527[address] [place], [place] [address]Dr. Eirca Tevin EO # 0.1 103/ul Normal 0.0-0.7 [facility] Comment on above: Performed By: #### C BC ####[facility] Ahbonikpoo3522[address] [place], [place] [address]Dr. Shiraemilia Abarca Eosinophils/100 WBC (Bld) 1.8 % Normal 0.9-7.0 [facility] Comment on above: Performed By: #### C BC ####[facility] Gfihmguckp5329[address] [place], [place] [address]Dr. Erica Abarca Erythrocyte distribution width (RBC) [Ratio] 20.6 % Critically high 11.0-15.0 [facility] Comment on above: Performed By: #### C BC ####[facility] Futbihekyy511372 [address] [place], [place] [address]Dr. Erica Abarca Hematocrit (Bld) [Volume fraction] 31.6 % Critically low 42.0-54.0 [facility] Comment on above: Performed By: #### C BC ####[facility] Aqaupfsmmx415[address] [place], [place] [address]Dr. Erica Abarca Hemoglobin (Bld) [Mass/Vol] 8.9 g/dL Critically low 14.0-18.0 [facility] Comment on above: Performed By: #### C BC ####[facility] Vkzygdudtv167[address] [place], [place] [address]Dr. Erica Abarca IG # 0.03 10e3/ul Normal 0.00-0.03 [facility] Comment on above: Performed By: #### C BC ####[facility] Einuijtkck4622 [place] [id number]. Erica Abarca IG % 0.4 % Normal 0.0-0.5 [facility] Comment on above: Performed By: #### C BC ####[facility] Eblrwymbuu3696 [place] [id number]. Erica Abarca LYMPH # 0.8 103/ul Critically low 1.2-3.8 [facility] Comment on above: Performed By: #### C BC ####[facility] Fpkdldkhho6467 [place] [id number]. Shiraemilia Abarca Lymphocytes/100 WBC (Bld) 11.6 % Critically low 20.5-60.0 [facility] Comment on above: Performed By: #### C BC ####[facility] Qpukhajjjz[address] [place] [address]Dr. Erica Abarca MANUAL DIFF REQ NO Normal [facility] Comment on above: Performed By: #### C BC ####[facility] Njfqbxdppg5204 [place] [id number]. Shiraemilia Abarca MCH (RBC) [Entitic mass] 21.6 pg Critically low 25.9-34.0 [facility] Comment on above: Performed By: #### C BC ####[facility] Svqrblfonq8840 [place] [id number]. Erica Abarca MCHC (RBC) [Mass/Vol] 28.2 g/dL Critically low 29.9-35.2 [facility] Comment on above: Performed By: #### C BC ####[facility] Hhxnshrrzf8001 [place] [id number]. Erica Abarca MCV (RBC) [Entitic vol] 76.7 fL Critically low 80.0-94.0 [facility] Comment on above: Performed By: #### C BC ####[facility] Rzmoivvtpp7059 [place] [address]DrCandi Abarca MONO # 0.4 103/ul Normal 0.3-0.8 [facility] Comment on above: Performed By: #### C BC ####[facility] Cqiswygqri9919 [place] [address]Dr. Erica Abarca Monocytes/100 WBC (Bld) 6.2 % Normal 1.7-12.0 [facility] Comment on above: Performed By: #### C BC ####[facility] Dqhxarsypq4636 [place] [address]Dr. Erica Abarca NEUT # 5.7 103/ul Normal 1.4-6.5 [facility] Comment on above: Performed By: #### C BC ####[facility] Hoosbdooix5122 [place] [address]Dr. Erica Abarca Neutrophils/100 WBC (Bld) 79.4 % Critically high 43.0-75.0 [facility] Comment on above: Performed By: #### C BC ####[facility] Vovqjpcgbj2114 [place] [address]Dr. Erica Abarca Platelet mean volume (Bld) [Entitic vol] 7.9 fL Critically low 9.5-13.5 [facility] Comment on above: Performed By: #### C BC ####[facility] Zxfvrpukup4204 [place] [address]Dr. Erica Abarca PLT 333 103/ul Normal 150-450 [facility] Comment on above: Performed By: #### C BC ####[facility] Oxvpeqsuvn2245 [place] [address]Dr. Erica Abarca RBC 4.12 106/ul Critically low 4.70-6.10 [facility] Comment on above: Performed By: #### C BC ####[facility] Yzxtlamtro1407 [place] [id number]. Erica Abarca WBC 7.1 103/ul Normal 4.0-11.0 [facility] Comment on above: Performed By: #### C BC ####[facility] Yiqmkapplz1675 [place] [id number] Erica Tevin POINT OF CARE GLUCOSEon 03-2 Glucose [Mass/Vol] 247 mg/dL Critically high 74-106 [facility] Comment on above: Performed By: #### P OCGLUC ####[facility] Jiefoduiiq5[address] [place] [address]Dr. Erica Abarca Glucose [Mass/Vol] 268 mg/dL Critically high 74-106 [facility] Comment on above: Performed By: #### P OCGLUC ####[facility] Bwcaucptpu3568 [place] [address]Dr. Erica Abarca PROF 14(COMP METB)on 023 Albumin [Mass/Vol] 2.7 g/dL Critically low 3.4-5.0 [facility] Comment on above: Performed By: #### B FURNITURE DUSTER, CMP ####[facility] Esefvmtplz439[address] [place], [place] [address]Dr. Erica Abarca Albumin/Globulin [Mass ratio] 0.7 {ratio} Normal [facility] Comment on above: Performed By: #### B FURNITURE DUSTER, CMP ####[facility] Whjohacdlt398[address] [place], [place] [address]Dr. Erica Abarca ALP [Catalytic activity/Vol] 71 U/L Normal 46-116 [facility] Comment on above: Performed By: #### B FURNITURE DUSTER, CMP ####[facility] Pbqwxpgzhz547[address] [place], [place] [address]Dr. Erica Abarca ALT [Catalytic activity/Vol] 11 U/L Critically low 16-63 [facility] Comment on above: Performed By: #### B FURNITURE DUSTER, CMP ####[facility] Orwqwpneos529172 [address] [place], [place] [address]Dr. Erica Abarca Anion gap [Moles/Vol] 7.2 mmol/L Normal [facility] Comment on above: Performed By: #### B FURNITURE DUSTER, CMP ####[facility] Iiprsvetep128372 [address] [place], [place] [address]Dr. Erica Abarca AST [Catalytic activity/Vol] 21 U/L Normal 15-37 [facility] Comment on above: Performed By: #### B FURNITURE DUSTER, CMP ####[facility] Neoyslqidq3527[address] [place], [place] [address]Dr. Erica Abarca Bilirubin [Mass/Vol] 0.8 mg/dL Normal 0.2-1.0 [facility] Comment on above: Performed By: #### B FURNITURE DUSTER, CMP ####[facility] Minhpcrxgg675[address] [place], [place] [address]Dr. Shiraemilia Tevin Calcium [Mass/Vol] 8.6 mg/dL Normal 8.5-10.1 [facility] Comment on above: Performed By: #### B FURNITURE DUSTER, CMP ####[facility] Vrrkrjovgh264[address] [place], [place] [address]Dr. Erica Abarca Chloride [Moles/Vol] 98 mmol/L Normal 98-107 [facility] Comment on above: Performed By: #### B FURNITURE DUSTER, CMP ####[facility] Sfaaedukrg635[address] [place], [place] [address]Dr. Erica Abarca CO2 [Moles/Vol] 34.5 mmol/L Critically high 21.0-32.0 [facility] Comment on above: Performed By: #### B FURNITURE DUSTER, CMP ####[facility] Dhbgqrkjxk926[address] [place], [place] [address]Dr. Erica Abarca Creatinine [Mass/Vol] 1.24 mg/dL Normal 0.70-1.30 [facility] Comment on above: Performed By: #### B FURNITURE DUSTER, CMP ####[facility] Qrjkwgasqa648[address] [place], [place] [address]Dr. Erica Abarca EGFR-AF AUSTRIAN >60 Normal >=60 [facility] Comment on above: Performed By: #### B FURNITURE DUSTER, CMP ####[facility] Dmnverhtjn5649[address] [place], [place] [address]Dr. Erica Abarca EGFR-NON AF AUSTRIAN 60 mL/min/1.73m2 Normal >=60 [facility] Comment on above: Performed By: #### B FURNITURE DUSTER, CMP ####[facility] Ztrfcptpya158[address] [place], [place] [address]Dr. Erica Abarca Globulin (S) [Mass/Vol] 4.1 g/dL Normal [facility] Comment on above: Performed By: #### B FURNITURE DUSTER, CMP ####[facility] Eutzazhium110[address] [place], [place] [address]Dr. Erica Abarca Glucose [Mass/Vol] 200 mg/dL Critically high 74-[address] [facility] Comment on above: Performed By: #### B FURNITURE DUSTER, CMP ####[facility] Qaujceosix9900[address] [place], [place] [address]Dr. Erica Abarca Potassium [Moles/Vol] 3.7 mmol/L Normal 3.5-5.1 [facility] Comment on above: Performed By: #### B FURNITURE DUSTER, CMP ####[facility] Tdgjhsyxru3650[address] [place], [place] [address]Dr. Erica Abarca Protein [Mass/Vol] 6.8 g/dL Normal 6.4-8.2 [facility] Comment on above: Performed By: #### B FURNITURE DUSTER, CMP ####[facility] Tzryeomrjx864[address] [place], [place] [address]Dr. Erica Abarca Sodium [Moles/Vol] 136 mmol/L Normal 136-145 [facility] Comment on above: Performed By: #### B FURNITURE DUSTER, CMP ####[facility] Fpxixqqfnt605[address] [place], [place] [address]Dr. Erica Abarca Urea nitrogen [Mass/Vol] 15.0 mg/dL Normal 7.0-18.0 [facility] Comment on above: Performed By: #### B FURNITURE DUSTER, CMP ####[facility] Rrbciabdft448[address] [place], [place] [address]Dr. Erica Abarca Urea nitrogen/Creatinine [Mass ratio] 12.1 mg/mg Normal [facility] Comment on above: Performed By: #### B FURNITURE DUSTER, CMP ####[facility] Mojdolphou770[address] [place], [place] [address]Dr. Erica Abarca BNPon 08-18-2022 Natriuretic peptide B (Bld) [Mass/Vol] 2518.0 pg/mL Critically high <=900.0 [facility] Comment on above: Performed By: #### B FURNITURE DUSTER, CMP ####[facility] Bfbnyntydo416[address] [place], [place] [address]Dr. Erica Abarca CBC AUTO DIFFon 08-18-2022 BASO # 0.0 103/ul Normal 0.0-0.1 [facility] Comment on above: Performed By: #### C BC ####[facility] Srxlonhhsz5087 [place] [id number]. Erica Abarca Basophils/100 WBC (Bld) 0.5 % Normal 0.2-2.0 [facility] Comment on above: Performed By: #### C BC ####[facility] Ibymmdpqgx[address] [place], [place] [address]Dr. Erica Abarca EO # 0.2 103/ul Normal 0.0-0.7 [facility] Comment on above: Performed By: #### C BC ####[facility] Hqidrviolt[address] [place], [place] [address]Dr. Erica Abarca Eosinophils/100 WBC (Bld) 2.6 % Normal 0.9-7.0 [facility] Comment on above: Performed By: #### C BC ####[facility] Axkwuccsfc569[address] [place], [place] [address]Dr. Erica Abarca Erythrocyte distribution width (RBC) [Ratio] 20.7 % Critically high 11.0-15.0 [facility] Comment on above: Performed By: #### C BC ####[facility] Yxqzhnogdt4[address] [place], [place] [address]Dr. Erica Abarca Hematocrit (Bld) [Volume fraction] 32.3 % Critically low 42.0-54.0 [facility] Comment on above: Performed By: #### C BC ####[facility] Bgnswjwsya9733[address] [place], [place] [address]Dr. Erica Abarca Hemoglobin (Bld) [Mass/Vol] 9.5 g/dL Critically low 14.0-18.0 [facility] Comment on above: Performed By: #### C BC ####[facility] Cbwarqjoha9[address] [place], [place] [address]Dr. Eirca Abarca IG # 0.02 10e3/ul Normal 0.00-0.03 [facility] Comment on above: Performed By: #### C BC ####[facility] Kfgbhncwps8[address] [place], [place] [address]Dr. Erica Abarca IG % 0.3 % Normal 0.0-0.5 [facility] Comment on above: Performed By: #### C BC ####[facility] Ctykqvvzba1945 [place] [id number] Abarca LYMPH # 0.9 103/ul Critically low 1.2-3.8 [facility] Comment on above: Performed By: #### C BC ####[facility] Bpvcpqwtvj0303 [place] [id number] Abarca Lymphocytes/100 WBC (Bld) 15.2 % Critically low 20.5-60.0 [facility] Comment on above: Performed By: #### C BC ####[facility] Objzxbfgns0881 [place] [id number] Abarca MANUAL DIFF REQ NO Normal [facility] Comment on above: Performed By: #### C BC ####[facility] Aducgieomn5610 [place] [id number] Abarca MCH (RBC) [Entitic mass] 22.2 pg Critically low 25.9-34.0 [facility] Comment on above: Performed By: #### C BC ####[facility] Qzdgqywaeo7650 [place] [id number] Abarca MCHC (RBC) [Mass/Vol] 29.4 g/dL Critically low 29.9-35.2 [facility] Comment on above: Performed By: #### C BC ####[facility] Caebggftdr5354 [place] [id number] Abarca MCV (RBC) [Entitic vol] 75.6 fL Critically low 80.0-94.0 [facility] Comment on above: Performed By: #### C BC ####[facility] Jaxdjolgdl3922 [place] [id number] Abarca MONO # 0.4 103/ul Normal 0.3-0.8 [facility] Comment on above: Performed By: #### C BC ####[facility] Envqmuenhi4882 [place] [id number] Abarca Monocytes/100 WBC (Bld) 6.2 % Normal 1.7-12.0 [facility] Comment on above: Performed By: #### C BC ####[facility] Sfculxlpdw5001 [place] [id number]. Erica Abarca NEUT # 4.4 103/ul Normal 1.4-6.5 [facility] Comment on above: Performed By: #### C BC ####[facility] Ybzztbwkju3554 [place] [address]Dr. Erica Abarca Neutrophils/100 WBC (Bld) 75.2 % Critically high 43.0-75.0 [facility] Comment on above: Performed By: #### C BC ####[facility] Czazgamnai7071 [place] [address]Dr. Erica Abarca Platelet mean volume (Bld) [Entitic vol] 7.7 fL Critically low 9.5-13.5 [facility] Comment on above: Performed By: #### C BC ####[facility] Tgokynkokt8817 [place] [address]Dr. Erica Abarca PLT 335 103/ul Normal 150-450 [facility] Comment on above: Performed By: #### C BC ####[facility] Upxfeevwkf1034 [place] [id number]. Erica Abarca RBC 4.27 106/ul Critically low 4.70-6.10 [facility] Comment on above: Performed By: #### C BC ####[facility] Lrfugwxnjn8649 [place] [id number]. Erica Abarca WBC 5.8 103/ul Normal 4.0-11.0 [facility] Comment on above: Performed By: #### C BC ####[facility] Dcsqsxdycv3341 [place] [id number]. Erica Tevin POINT OF CARE GLUCOSEon 07-28 Glucose [Mass/Vol] 321 mg/dL Critically high 74-106 [facility] Comment on above: Performed By: #### P OCGLUC ####[facility] Yikbzpklyw1984 [place] [id number]. Erica Tevin Glucose [Mass/Vol] 307 mg/dL Critically high 74-106 [facility] Comment on above: Performed By: #### P OCGLUC ####[facility] Qrgzjqophi3913 [place] [address]Dr. Erica Abarca Glucose [Mass/Vol] 292 mg/dL Critically high 74-106 [facility] Comment on above: Performed By: #### P OCGLUC ####[facility] Wgmjkmsaxi4810 [place] [address]Dr. Erica Abarca Glucose [Mass/Vol] 232 mg/dL Critically high 74-106 [facility] Comment on above: Performed By: #### P OCGLUC ####[facility] Sylxpoamey[address] [place], [place] [address]Dr. Erica Abarca PROF 14(COMP METB)on 023 Albumin [Mass/Vol] 2.7 g/dL Critically low 3.4-5.0 [facility] Comment on above: Performed By: #### B FURNITURE DUSTER, CMP ####[facility] Pelccjcvgp7740[address] [place], [place] [address]Dr. Erica Abarca Albumin/Globulin [Mass ratio] 0.6 {ratio} Normal [facility] Comment on above: Performed By: #### B FURNITURE DUSTER, CMP ####[facility] Heybdcpxla7577[address] [place], [place] [address]Dr. Erica Abarca ALP [Catalytic activity/Vol] 73 U/L Normal 46-116 [facility] Comment on above: Performed By: #### B FURNITURE DUSTER, CMP ####[facility] Pucfjjlpda695[address] [place], [place] [address]Dr. Erica Abarca ALT [Catalytic activity/Vol] 12 U/L Critically low 16-63 [facility] Comment on above: Performed By: #### B FURNITURE DUSTER, CMP ####[facility] Jigsodkcgy9875[address] [place], [place] [address]Dr. Erica Abarca Anion gap [Moles/Vol] 9.5 mmol/L Normal [facility] Comment on above: Performed By: #### B FURNITURE DUSTER, CMP ####[facility] Sfinsipojn437[address] [place], [place] [address]Dr. Erica Abarca AST [Catalytic activity/Vol] 23 U/L Normal 15-37 [facility] Comment on above: Performed By: #### B FURNITURE DUSTER, CMP ####[facility] Bwygthwlwx215[address] [place], [place] [address]Dr. Erica Abarca Bilirubin [Mass/Vol] 0.8 mg/dL Normal 0.2-1.0 [facility] Comment on above: Performed By: #### B FURNITURE DUSTER, CMP ####[facility] Ctwgloacbf807[address] [place], [place] [address]Dr. Shiraemilia Abarca Calcium [Mass/Vol] 9.0 mg/dL Normal 8.5-10.1 [facility] Comment on above: Performed By: #### B FURNITURE DUSTER, CMP ####[facility] Bkyfcasbmj7760[address] [place], [place] [address]Dr. Erica Abarca Chloride [Moles/Vol] 97 mmol/L Critically low 98-107 [facility] Comment on above: Performed By: #### B FURNITURE DUSTER, CMP ####[facility] Brfcosxrzt255[address] [place], [place] [address]Dr. Shiraemilia Tevin CO2 [Moles/Vol] 33.1 mmol/L Critically high 21.0-32.0 [facility] Comment on above: Performed By: #### B FURNITURE DUSTER, CMP ####[facility] Klmiypbhkn8967[address] [place], [place] [address]Dr. Shiraemilia Tevin Creatinine [Mass/Vol] 1.19 mg/dL Normal 0.70-1.30 [facility] Comment on above: Performed By: #### B FURNITURE DUSTER, CMP ####[facility] [facility] [address]oc[address]fs[address] [place], [place] [address]Dr. Erica Abarca EGFR-AF AUSTRIAN >60 Normal >=60 [facility] Comment on above: Performed By: #### B FURNITURE DUSTER, CMP ####[facility] Ylucffparv85[address] [place], [place] [address]Dr. Erica Abarca EGFR-NON AF AUSTRIAN >60 Normal >=60 [facility] Comment on above: Performed By: #### B FURNITURE DUSTER, CMP ####[facility] Ozurnbsyjm1309[address] [place], [place] [address]Dr. Erica Abarca Globulin (S) [Mass/Vol] 4.4 g/dL Normal [facility] Comment on above: Performed By: #### B FURNITURE DUSTER, CMP ####[facility] Eqxpphlxnf[address] [place] [address]Dr. Erica Abarca Glucose [Mass/Vol] 226 mg/dL Critically high 74-[address] [facility] Comment on above: Performed By: #### B FURNITURE DUSTER, CMP ####[facility] Kkgegrxuwx7543 [place] [address]Dr. Erica Abarca Potassium [Moles/Vol] 3.6 mmol/L Normal 3.5-5.1 [facility] Comment on above: Performed By: #### B FURNITURE DUSTER, CMP ####[facility] Zxdmehmdwk[address] [place], [place] [address]Dr. Erica Abarca Protein [Mass/Vol] 7.1 g/dL Normal 6.4-8.2 [facility] Comment on above: Performed By: #### B FURNITURE DUSTER, CMP ####[facility] Tucsqlnysb2634[address] [place], [place] [address]Dr. Erica Tevin Sodium [Moles/Vol] 136 mmol/L Normal 136-145 [facility] Comment on above: Performed By: #### B FURNITURE DUSTER, CMP ####[facility] Qixeidprsv40[address] [place] [address]Dr. Erica Abarca Urea nitrogen [Mass/Vol] 15.0 mg/dL Normal 7.0-18.0 [facility] Comment on above: Performed By: #### B FURNITURE DUSTER, CMP ####[facility] Vncugtmrap16[address] [place] [address]Dr. Erica Tevin Urea nitrogen/Creatinine [Mass ratio] 12.6 mg/mg Normal [facility] Comment on above: Performed By: #### B FURNITURE DUSTER, CMP ####[facility] Iigsqpiddi7152 [place] [address]Dr. Erica Tevin VANCOMYCIN TROUGHon 08-19-19 23 VANCOMYCIN TROUGH 19.9 ug/ml Normal 5.0-20.0 [facility] Comment on above: Performed By: #### V ANCT ####[facility] Aywygezwdj[address] [place] [address]Dr. Erica Abarca XR ANKLE RT 2Von 08-18-2022 XR ANKLE RT 2V Normal [facility] XR ANKLE RT MIN 3 VIEWSon XR ANKLE RT MIN 3 VIEWS Normal [facility] BNPon 08-17-2022 Natriuretic peptide B (Bld) [Mass/Vol] 2944.0 pg/mL Critically high <=900.0 [facility] Comment on above: Performed By: #### B FURNITURE DUSTER, CMP ####[facility] Zpkqhtzcfb[address] [place], [place] [address]Dr. Erica Abarca CBC AUTO DIFFon 08-17-2022 BASO # 0.0 103/ul Normal 0.0-0.1 [facility] Comment on above: Performed By: #### C BC ####[facility] Bghbuqkrgm[address] [place], [place] [address]Dr. Erica Abarca Basophils/100 WBC (Bld) 0.5 % Normal 0.2-2.0 [facility] Comment on above: Performed By: #### C BC ####[facility] Ajfuucvsux8538[address] [place], [place] [address]Dr. Erica Abarac EO # 0.2 103/ul Normal 0.0-0.7 [facility] Comment on above: Performed By: #### C BC ####[facility] Inteeaweop8825[address] [place], [place] [address]Dr. Erica Abarca Eosinophils/100 WBC (Bld) 3.3 % Normal 0.9-7.0 [facility] Comment on above: Performed By: #### C BC ####[facility] Xleflodnyk089[address] [place], [place] [address]Dr. Erica Abarca Erythrocyte distribution width (RBC) [Ratio] 20.1 % Critically high 11.0-15.0 [facility] Comment on above: Performed By: #### C BC ####[facility] Jygunoausm7[address] [place], [place] [address]Dr. Erica Abarca Hematocrit (Bld) [Volume fraction] 31.2 % Critically low 42.0-54.0 [facility] Comment on above: Performed By: #### C BC ####[facility] Catseqmirm9787 [place] [id number]. Erica Abarca Hemoglobin (Bld) [Mass/Vol] 8.8 g/dL Critically low 14.0-18.0 [facility] Comment on above: Performed By: #### C BC ####[facility] Akcvrbbhgs93[address] [place] [address]Dr. Erica Abarca IG # 0.02 10e3/ul Normal 0.00-0.03 [facility] Comment on above: Performed By: #### C BC ####[facility] Faookprqjt2368 [place] [address]Dr. Erica Tevin IG % 0.4 % Normal 0.0-0.5 [facility] Comment on above: Performed By: #### C BC ####[facility] Mzwcnxdaml3087 [place] [address]Dr. Erica Tevin LYMPH # 0.9 103/ul Critically low 1.2-3.8 [facility] Comment on above: Performed By: #### C BC ####[facility] Owcfpxklwa9221 [place] [address]Dr. Erica Tevin Lymphocytes/100 WBC (Bld) 15.6 % Critically low 20.5-60.0 [facility] Comment on above: Performed By: #### C BC ####[facility] Qhakhokofr8[address] [place] [address]Dr. Erica Tevin MANUAL DIFF REQ NO Normal [facility] Comment on above: Performed By: #### C BC ####[facility] Sgrvlajwsy8206 [place] [phone]. Erica Abarca MCH (RBC) [Entitic mass] 21.6 pg Critically low 25.9-34.0 [facility] Comment on above: Performed By: #### C BC ####[facility] Tyvgytcdcs0208 [place] [phone]. Erica Abarca MCHC (RBC) [Mass/Vol] 28.2 g/dL Critically low 29.9-35.2 [facility] Comment on above: Performed By: #### C BC ####[facility] Jffbmvodbn0935 [place] [phone]. Erica Abarca MCV (RBC) [Entitic vol] 76.7 fL Critically low 80.0-94.0 [facility] Comment on above: Performed By: #### C BC ####[facility] Tgpxvprkuy9072 [place] [address]Dr. Erica Abarca MONO # 0.3 103/ul Normal 0.3-0.8 [facility] Comment on above: Performed By: #### C BC ####[facility] Mmpizockhb0409 [place] [address]Dr. Erica Tevin Monocytes/100 WBC (Bld) 6.0 % Normal 1.7-12.0 [facility] Comment on above: Performed By: #### C BC ####[facility] Dpmaxxbtzt0280[address] [place], [place] [address]Dr. Erica Abarca NEUT # 4.1 103/ul Normal 1.4-6.5 [facility] Comment on above: Performed By: #### C BC ####[facility] Yuzetnzuyn[address] [place], [place] [address]Dr. Erica Tevin Neutrophils/100 WBC (Bld) 74.2 % Normal 43.0-75.0 [facility] Comment on above: Performed By: #### C BC ####[facility] Crnrsukypa446[address] [place], [place] [address]DrCandi Erica Tevin Platelet mean volume (Bld) [Entitic vol] 8.1 fL Critically low 9.5-13.5 [facility] Comment on above: Performed By: #### C BC ####[facility] Pbluxnafhz60[address] [place], [place] [address]Dr. Shiraemilia Abarca PLT 349 103/ul Normal 150-450 [facility] Comment on above: Performed By: #### C BC ####[facility] Mkvralopgo2252 [place] [phone]. Erica Abarca RBC 4.07 106/ul Critically low 4.70-6.10 [facility] Comment on above: Performed By: #### C BC ####[facility] Abzggazaxl6107 [place] [address]Dr. Erica Abarca WBC 5.5 103/ul Normal 4.0-11.0 [facility] Comment on above: Performed By: #### C BC ####[facility] Xsohikohwd2816 [place] [phone]. Erica Abarca OCC BLD IMMUNOASSAYon 2022 OCCULT BLOOD Positive Abnormal NEGATIVE [facility] Comment on above: Performed By: #### O WINIFRED ####[facility] Bwuwyqhpiz7379 [place] [phone]. Erica Abarca POINT OF CARE GLUCOSEon 07-28 Glucose [Mass/Vol] 252 mg/dL Critically high [facility]106 [facility] Comment on above: Performed By: #### P OCGLUC ####[facility] Cvzenkjevh[address] [place], [place] [address]Dr. Erica Abarca Glucose [Mass/Vol] 206 mg/dL Critically high 74-106 [facility] Comment on above: Performed By: #### P OCGLUC ####[facility] Iflmqumcdp24[address] [place], [place] [address]Dr. Erica Abarca Glucose [Mass/Vol] 218 mg/dL Critically high [facility]106 [facility] Comment on above: Performed By: #### P OCGLUC ####[facility] Dfowtpefaa045[address] [place], [place] [address]Dr. Erica Abarca PRBC LEUKOREDUCEDon 08-18-19 23 PRBC LEUKOREDUCED Normal [facility] Comment on above: Performed By: #### P RBC ####[facility] Mmukabghud[address]39[address] [place], [place] [address]Dr. Erica Abarca PROF 14(COMP METB)on 023 Albumin [Mass/Vol] 2.4 g/dL Critically low 3.4-5.0 [facility] Comment on above: Performed By: #### B FURNITURE DUSTER, CMP ####[facility] Ydtxuzsjaj4989[address] [place], [place] [address]Dr. Erica Abarca Albumin/Globulin [Mass ratio] 0.6 {ratio} Normal [facility] Comment on above: Performed By: #### B FURNITURE DUSTER, CMP ####[facility] Qqbeozkszc8416 [place] [address]Dr. Erica Tevin ALP [Catalytic activity/Vol] 69 U/L Normal 46-116 [facility] Comment on above: Performed By: #### B FURNITURE DUSTER, CMP ####[facility] Fwtrvhqzvu3616 [place] [address]Dr. Erica Abarca ALT [Catalytic activity/Vol] 8 U/L Critically low 16-63 [facility] Comment on above: Performed By: #### B FURNITURE DUSTER, CMP ####[facility] Uibxcftkcm2938[address] [place], [place] [address]Dr. Erica Abarca Anion gap [Moles/Vol] 8.1 mmol/L Normal [facility] Comment on above: Performed By: #### B FURNITURE DUSTER, CMP ####[facility] Sjbnptzigi3269[address] [place], [place] [address]Dr. Erica Abarca AST [Catalytic activity/Vol] 17 U/L Normal 15-37 [facility] Comment on above: Performed By: #### B FURNITURE DUSTER, CMP ####[facility] Teczckyuos[address] [place], [place] [address]Dr. Erica Abarca Bilirubin [Mass/Vol] 0.6 mg/dL Normal 0.2-1.0 [facility] Comment on above: Performed By: #### B FURNITURE DUSTER, CMP ####[facility] Vtggbrzyeb212[address] [place], [place] [address]Dr. Erica Abarca Calcium [Mass/Vol] 8.8 mg/dL Normal 8.5-10.1 [facility] Comment on above: Performed By: #### B FURNITURE DUSTER, CMP ####[facility] Uxnjswduqn[address] [place], [place] [address]Dr. Erica Abarca Chloride [Moles/Vol] 101 mmol/L Normal 98-107 [facility] Comment on above: Performed By: #### B FURNITURE DUSTER, CMP ####[facility] Khtiapeiyi[address] [place], [place] [address]Dr. Erica Abarca CO2 [Moles/Vol] 34.4 mmol/L Critically high 21.0-32.0 [facility] Comment on above: Performed By: #### B FURNITURE DUSTER, CMP ####[facility] Lbaxpoldro1772 [place] [address]Dr. Erica Abarca Creatinine [Mass/Vol] 1.30 mg/dL Normal 0.70-1.30 [facility] Comment on above: Performed By: #### B FURNITURE DUSTER, CMP ####[facility] Iutwaajffh4515 [place] [address]Dr. Erica Abarca EGFR-AF AUSTRIAN >60 Normal >=60 [facility] Comment on above: Performed By: #### B FURNITURE DUSTER, CMP ####[facility] Wxamjjjbpe[address] [place], [place] [address]Dr. Erica Abarca EGFR-NON AF AUSTRIAN 57 mL/min/1.73m2 Critically low >=60 [facility] Comment on above: Performed By: #### B FURNITURE DUSTER, CMP ####[facility] Xwzcsxjnbl7890 [place] [address]Dr. Erica Abarca Globulin (S) [Mass/Vol] 4.3 g/dL Normal [facility] Comment on above: Performed By: #### B FURNITURE DUSTER, CMP ####[facility] Rqtjpckhsv560[address] [place], [place] [address]Dr. Eirca Abarca Glucose [Mass/Vol] 148 mg/dL Critically high 74-[address] [facility] Comment on above: Performed By: #### B FURNITURE DUSTER, CMP ####[facility] Aehshuskci9392 [place] [address]Dr. Erica Abarca Potassium [Moles/Vol] 3.5 mmol/L Normal 3.5-5.1 [facility] Comment on above: Performed By: #### B FURNITURE DUSTER, CMP ####[facility] Yjocolrhcc[address] [place], [place] [address]Dr. Erica Abarca Protein [Mass/Vol] 6.7 g/dL Normal 6.4-8.2 [facility] Comment on above: Performed By: #### B FURNITURE DUSTER, CMP ####[facility] Dnmtivnnig57[address] [place], [place] [address]Dr. Erica Abarca Sodium [Moles/Vol] 140 mmol/L Normal 136-145 [facility] Comment on above: Performed By: #### B FURNITURE DUSTER, CMP ####[facility] Uakdmauxai7736[address] [place], [place] [address]Dr. Erica Abarca Urea nitrogen [Mass/Vol] 14.0 mg/dL Normal 7.0-18.0 [facility] Comment on above: Performed By: #### B FURNITURE DUSTER, CMP ####[facility] Gqiesewigj14[address] [place], [place] [address]Dr. Erica Abarca Urea nitrogen/Creatinine [Mass ratio] 10.8 mg/mg Normal [facility] Comment on above: Performed By: #### B FURNITURE DUSTER, CMP ####[facility] Azstgcfpgk14[address] [place], [place] [address]Dr. Erica Abarca BNPon 08-16-2022 Natriuretic peptide B (Bld) [Mass/Vol] 3279.0 pg/mL Critically high <=900.0 [facility] Comment on above: Performed By: #### B FURNITURE DUSTER, CMP ####[facility] Ulroqgactz[address] [place], [place] [address]Dr. Erica Tevin CBC AUTO DIFFon 08-16-2022 BASO # 0.0 103/ul Normal 0.0-0.1 [facility] Comment on above: Performed By: #### C BC ####[facility] Imgeryrjqt7944[address] [place], [place] [address]Dr. Erica Tevin Basophils/100 WBC (Bld) 0.5 % Normal 0.2-2.0 [facility] Comment on above: Performed By: #### C BC ####[facility] Dikbmgiijs195[address] [place], [place] [address]Dr. Erica Tevin EO # 0.2 103/ul Normal 0.0-0.7 [facility] Comment on above: Performed By: #### C BC ####[facility] Aycvexjdoo[address] [place], [place] [address]Dr. Shiraemilia Tevin Eosinophils/100 WBC (Bld) 2.7 % Normal 0.9-7.0 [facility] Comment on above: Performed By: #### C BC ####[facility] Cnnqjsfmyu6481 [place] [address]Dr. Erica Abarca Erythrocyte distribution width (RBC) [Ratio] 20.3 % Critically high 11.0-15.0 [facility] Comment on above: Performed By: #### C BC ####[facility] Bhjaxjbapz5562 [place] [address]Dr. Erica Abarca Hematocrit (Bld) [Volume fraction] 30.2 % Critically low 42.0-54.0 [facility] Comment on above: Performed By: #### C BC ####[facility] Wpumkgegnc[address] [place], [place] [address]Dr. Erica Abarca Hemoglobin (Bld) [Mass/Vol] 8.8 g/dL Critically low 14.0-18.0 [facility] Comment on above: Performed By: #### C BC ####[facility] Okxrnyngfl3540[address] [place], [place] [address]Dr. Erica Abarca IG # 0.03 10e3/ul Normal 0.00-0.03 [facility] Comment on above: Performed By: #### C BC ####[facility] Cifnlgkyqx28[address] [place], [place] [address]Dr. Erica Abarca IG % 0.5 % Normal 0.0-0.5 [facility] Comment on above: Performed By: #### C BC ####[facility] Gsfhqiqthn350[address] [place], [place] [address]Dr. Erica Abarca LYMPH # 0.8 103/ul Critically low 1.2-3.8 [facility] Comment on above: Performed By: #### C BC ####[facility] Ddrrcrmsff5615[address] [place], [place] [address]Dr. Erica Abarca Lymphocytes/100 WBC (Bld) 15.0 % Critically low 20.5-60.0 [facility] Comment on above: Performed By: #### C BC ####[facility] Ezqgqlpjfz[address] [place], [place] [address]Dr. Shiraemilia Abarca MANUAL DIFF REQ NO Normal [facility] Comment on above: Performed By: #### C BC ####[facility] Dpwyrvqxmi5660 [place] [address]Dr. Erica Abarca MCH (RBC) [Entitic mass] 22.1 pg Critically low 25.9-34.0 [facility] Comment on above: Performed By: #### C BC ####[facility] Tclefxcmae8417 [place] [address]Dr. Erica Abarca MCHC (RBC) [Mass/Vol] 29.1 g/dL Critically low 29.9-35.2 [facility] Comment on above: Performed By: #### C BC ####[facility] Hzugjxllrw9337 [place] [address]Dr. Erica Abarca MCV (RBC) [Entitic vol] 75.9 fL Critically low 80.0-94.0 [facility] Comment on above: Performed By: #### C BC ####[facility] Lvzzciobhf[address] [place], [place] [address]Dr. Erica Abarca MONO # 0.4 103/ul Normal 0.3-0.8 [facility] Comment on above: Performed By: #### C BC ####[facility] Jczzocfaak385[address] [place], [place] [address]Dr. Erica Abarca Monocytes/100 WBC (Bld) 6.4 % Normal 1.7-12.0 [facility] Comment on above: Performed By: #### C BC ####[facility] Widdlbnurr[address] [place], [place] [address]DrCandi Abarca NEUT # 4.1 103/ul Normal 1.4-6.5 [facility] Comment on above: Performed By: #### C BC ####[facility] Mrpgvbzqov069[address] [place], [place] [address]DrCandi Abarca Neutrophils/100 WBC (Bld) 74.9 % Normal 43.0-75.0 [facility] Comment on above: Performed By: #### C BC ####[facility] Pezgmpjdsu04[address] [place], [place] [address]DrCandi Abarca Platelet mean volume (Bld) [Entitic vol] 8.4 fL Critically low 9.5-13.5 [facility] Comment on above: Performed By: #### C BC ####[facility] Rrzosmoocx6426 [place], [place] [address]Zo. Erica Abarca PLT 396 103/ul Normal 150-450 [facility] Comment on above: Performed By: #### C BC ####[facility] Vfqhqbhqgl7550 [place], [place] [address]Mb. Erica Abarca RBC 3.98 106/ul Critically low 4.70-6.10 [facility] Comment on above: Performed By: #### C BC ####[facility] Ifubiapamc4948 [place] [id number]. Erica Abarca WBC 5.5 103/ul Normal 4.0-11.0 [facility] Comment on above: Performed By: #### C BC ####[facility] Ajfnunmfwu5805 [place] [address]Dr. Erica Abarca POINT OF CARE GLUCOSEon 07-28 Glucose [Mass/Vol] 282 mg/dL Critically high 74-106 [facility] Comment on above: Performed By: #### P OCGLUC ####[facility] Xnvupfqkij1235 [place] [address]Dr. Erica Abarca Glucose [Mass/Vol] 220 mg/dL Critically high 74-106 [facility] Comment on above: Performed By: #### P OCGLUC ####[facility] Kohlduwoqv2834 [place] [address]Dr. Erica Tevin Glucose [Mass/Vol] 195 mg/dL Critically high 74-106 [facility] Comment on above: Performed By: #### P OCGLUC ####[facility] Gbjtsckaym5920 [place] [id number] Abarca PROF 14(COMP METB)on 023 Albumin [Mass/Vol] 2.5 g/dL Critically low 3.4-5.0 [facility] Comment on above: Performed By: #### B FURNITURE DUSTER, CMP ####[facility] Knotyonjvm3813 [place] [id number]. Erica Abarca Albumin/Globulin [Mass ratio] 0.6 {ratio} Normal [facility] Comment on above: Performed By: #### B FURNITURE DUSTER, CMP ####[facility] Oyqnzarygm0537 [place] [address]Dr. Erica Abarca ALP [Catalytic activity/Vol] 65 U/L Normal 46-116 [facility] Comment on above: Performed By: #### B FURNITURE DUSTER, CMP ####[facility] Fzhptjxhkb4820 [place] [address]Dr. Erica Abarca ALT [Catalytic activity/Vol] 10 U/L Critically low 16-63 [facility] Comment on above: Performed By: #### B FURNITURE DUSTER, CMP ####[facility] Fcueediwmj78[address] [place], [place] [address]Dr. Erica Abarca Anion gap [Moles/Vol] 8.8 mmol/L Normal [facility] Comment on above: Performed By: #### B FURNITURE DUSTER, CMP ####[facility] Njpjwflinb[address] [place], [place] [address]Dr. Erica Abarca AST [Catalytic activity/Vol] 18 U/L Normal 15-37 [facility] Comment on above: Performed By: #### B FURNITURE DUSTER, CMP ####[facility] Enqughjyac55[address] [place], [place] [address]Dr. Erica Abarca Bilirubin [Mass/Vol] 0.8 mg/dL Normal 0.2-1.0 [facility] Comment on above: Performed By: #### B FURNITURE DUSTER, CMP ####[facility] Wpzdvbdudj6943 [place] [address]Dr. Erica Abarca Calcium [Mass/Vol] 8.8 mg/dL Normal 8.5-10.1 [facility] Comment on above: Performed By: #### B FURNITURE DUSTER, CMP ####[facility] Nyaqeuspqi1841 [place] [address]Dr. Erica Abarca Chloride [Moles/Vol] 99 mmol/L Normal 98-107 [facility] Comment on above: Performed By: #### B FURNITURE DUSTER, CMP ####[facility] Wwvekhoweg1309 [place] [address]Dr. Erica Abarca CO2 [Moles/Vol] 35.8 mmol/L Critically high 21.0-32.0 [facility] Comment on above: Performed By: #### B FURNITURE DUSTER, CMP ####[facility] Zilshlqsjj7984 [place] [address]Dr. Erica Abarca Creatinine [Mass/Vol] 1.31 mg/dL Critically high 0.70-1.30 [facility] Comment on above: Performed By: #### B FURNITURE DUSTER, CMP ####[facility] Jybdmbiaqq210[address] [place], [place] [address]Dr. Erica Abarca EGFR-AF AUSTRIAN >60 Normal >=60 [facility] Comment on above: Performed By: #### B FURNITURE DUSTER, CMP ####[facility] Pnfqttgisi198[address] [place], [place] [address]Dr. Erica Abarca EGFR-NON AF AUSTRIAN 56 mL/min/1.73m2 Critically low >=60 [facility] Comment on above: Performed By: #### B FURNITURE DUSTER, CMP ####[facility] Sttvcsstus25[address] [place], [place] [address]Dr. Erica Abarca Globulin (S) [Mass/Vol] 4.3 g/dL Normal [facility] Comment on above: Performed By: #### B FURNITURE DUSTER, CMP ####[facility] Hhzvrbywrs[address] [place], [place] [address]Dr. Erica Abarca Glucose [Mass/Vol] 174 mg/dL Critically high 74-[address] [facility] Comment on above: Performed By: #### B FURNITURE DUSTER, CMP ####[facility] Rtfxyvwllm9790 [place] [address]Dr. Erica Abarca Potassium [Moles/Vol] 3.6 mmol/L Normal 3.5-5.1 [facility] Comment on above: Performed By: #### B FURNITURE DUSTER, CMP ####[facility] Iiggmciwge9664[address] [place], [place] [address]Dr. Erica Abarca Protein [Mass/Vol] 6.8 g/dL Normal 6.4-8.2 [facility] Comment on above: Performed By: #### B FURNITURE DUSTER, CMP ####[facility] Tstgsqqayf[address] [place], [place] [address]Dr. Erica Abarca Sodium [Moles/Vol] 140 mmol/L Normal 136-145 [facility] Comment on above: Performed By: #### B FURNITURE DUSTER, CMP ####[facility] Xomoquiwpf27[address] [place], [place] [address]Dr. Erica Abarca Urea nitrogen [Mass/Vol] 14.0 mg/dL Normal 7.0-18.0 [facility] Comment on above: Performed By: #### B FURNITURE DUSTER, CMP ####[facility] Ugvkwnftgb528[address] [place], [place] [address]Dr. Erica Tevin Urea nitrogen/Creatinine [Mass ratio] 10.7 mg/mg Normal [facility] Comment on above: Performed By: #### B FURNITURE DUSTER, CMP ####[facility] Qktogqsxix[address] [place], [place] [address]Dr. Erica Tevin BNPon 08-15-2022 Natriuretic peptide B (Bld) [Mass/Vol] 3103.0 pg/mL Critically high <=900.0 [facility] Comment on above: Performed By: #### B FURNITURE DUSTER, CMP ####[facility] Kcijwlsybh[address] [place], [place] [address]Dr. Erica Tevin CBC AUTO DIFFon 08-15-2022 BASO # 0.1 103/ul Normal 0.0-0.1 [facility] Comment on above: Performed By: #### C BC ####[facility] Zkpfnqbgls[address] [place], [place] [address]Dr. Erica Abarca Basophils/100 WBC (Bld) 0.8 % Normal 0.2-2.0 [facility] [facility] Comment on above: Performed By: #### C BC ####[facility] Ofrlppbsku[address] [place], [place] [address]Dr. Erica Abarca EO # 0.2 103/ul Normal 0.0-0.7 [facility] Comment on above: Performed By: #### C BC ####[facility] Vscymcmzek9[address] [place], [place] [address]Dr. Erica Abarca Eosinophils/100 WBC (Bld) 3.4 % Normal 0.9-7.0 [facility] Comment on above: Performed By: #### C BC ####[facility] Yshqfbjupo[address] [place] [address]Dr. Erica Tevin Erythrocyte distribution width (RBC) [Ratio] 20.3 % Critically high 11.0-15.0 [facility] Comment on above: Performed By: #### C BC ####[facility] Oyjraveyni[address] [place] [address]Dr. Erica Abarca Hematocrit (Bld) [Volume fraction] 32.1 % Critically low 42.0-54.0 [facility] Comment on above: Performed By: #### C BC ####[facility] Igkugajivr11[address] [place], [place] [address]Dr. Erica Abarca Hemoglobin (Bld) [Mass/Vol] 9.0 g/dL Critically low 14.0-18.0 [facility] Comment on above: Performed By: #### C BC ####[facility] Gjqkturwlf58[address] [place], [place] [address]Dr. Erica Abarca IG # 0.04 10e3/ul Critically high 0.00-0.03 [facility] Comment on above: Performed By: #### C BC ####[facility] Fotncpuuxg075[address] [place], [place] [address]Dr. Erica Abarca IG % 0.7 % Critically high 0.0-0.5 [facility] Comment on above: Performed By: #### C BC ####[facility] Jzrnujexca4330[address] [place], [place] [address]Dr. Erica Abarca LYMPH # 0.9 103/ul Critically low 1.2-3.8 [facility] Comment on above: Performed By: #### C BC ####[facility] Tusisqictw7733[address] [place], [place] [address]Dr. Erica Abarca Lymphocytes/100 WBC (Bld) 14.6 % Critically low 20.5-60.0 [facility] Comment on above: Performed By: #### C BC ####[facility] Dlbgcpdfwu8712[address] [place], [place] [address]Dr. Erica Abarca MANUAL DIFF REQ NO Normal [facility] Comment on above: Performed By: #### C BC ####[facility] Jvcmqryivr44[address] [place] [address]Dr. Erica Abarca MCH (RBC) [Entitic mass] 21.5 pg Critically low 25.9-34.0 [facility] Comment on above: Performed By: #### C BC ####[facility] Mjbfahqolo4268 [place] [address]Dr. Erica Abarca MCHC (RBC) [Mass/Vol] 28.0 g/dL Critically low 29.9-35.2 [facility] Comment on above: Performed By: #### C BC ####[facility] Whddojqzmn076[address] [place], [place] [address]DrCandi Abarca MCV (RBC) [Entitic vol] 76.6 fL Critically low 80.0-94.0 [facility] Comment on above: Performed By: #### C BC ####[facility] Uymmiojgzq5585[address] [place], [place] [address]DrCandi Abarca MONO # 0.4 103/ul Normal 0.3-0.8 [facility] Comment on above: Performed By: #### C BC ####[facility] Tvektmelba834[address] [place], [place] [address]DrCandi Abarca Monocytes/100 WBC (Bld) 6.1 % Normal 1.7-12.0 [facility] Comment on above: Performed By: #### C BC ####[facility] Wizvbwnnfm4[address] [place], [place] [address]DrCandi Abarca NEUT # 4.4 103/ul Normal 1.4-6.5 [facility] Comment on above: Performed By: #### C BC ####[facility] Ooghljyiyv388[address] [place], [place] [address]DrCandi Abarca Neutrophils/100 WBC (Bld) 74.4 % Normal 43.0-75.0 [facility] Comment on above: Performed By: #### C BC ####[facility] Vwygwyhuem9129[address] [place], [place] [address]DrCandi Abarca Platelet mean volume (Bld) [Entitic vol] 8.5 fL Critically low 9.5-13.5 [facility] Comment on above: Performed By: #### C BC ####[facility] Wjyhswimzy3357 [place] [address]Dr. Erica Abarca PLT 399 103/ul Normal 150-450 [facility] Comment on above: Performed By: #### C BC ####[facility] Czyvvurogo9111 [place] [address]Dr. Erica Abarca RBC 4.19 106/ul Critically low 4.70-6.10 [facility] Comment on above: Performed By: #### C BC ####[facility] Kspoqcvryy4907 [place] [address]Dr. Erica Abarca WBC 5.9 103/ul Normal 4.0-11.0 [facility] Comment on above: Performed By: #### C BC ####[facility] Hcaigidpcd955[address] [place], [place] [address]Dr. Erica Abarca CULTURE OTHERon 08-15-2022 CULTURE OTHER Normal [facility] Comment on above: Performed By: #### O THCX ####[facility] Pwjrwkxnwi439[address] [place], [place] [address]Dr. Erica Abarca POINT OF CARE GLUCOSEon 07-28 Glucose [Mass/Vol] 182 mg/dL Critically high 74-106 [facility] Comment on above: Performed By: #### P OCGLUC ####[facility] Assbloxlim0012[address] [place], [place] [address]Dr. Erica Abarca Glucose [Mass/Vol] 177 mg/dL Critically high 74-106 [facility] Comment on above: Performed By: #### P OCGLUC ####[facility] Txkobegpkn87[address] [place], [place] [address]Dr. Erica Abarca Glucose [Mass/Vol] 162 mg/dL Critically high 74-106 [facility] Comment on above: Performed By: #### P OCGLUC ####[facility] Xmvdfpaxtv816[address] [place], [place] [address]Dr. Erica Abarca Glucose [Mass/Vol] 177 mg/dL Critically high 74-106 [facility] Comment on above: Performed By: #### P OCGLUC ####[facility] Tzcotvonax4089 [place] [address]Dr. Erica Abarca Glucose [Mass/Vol] 211 mg/dL Critically high 74-106 [facility] Comment on above: Performed By: #### P OCGLUC ####[facility] Ucnuddxnfh056[address] [place], [place] [address]Dr. Erica Abarca PROF 14(COMP METB)on 023 Albumin [Mass/Vol] 2.5 g/dL Critically low 3.4-5.0 [facility] Comment on above: Performed By: #### B FURNITURE DUSTER, CMP ####[facility] Kqvfbqrrku6499[address] [place], [place] [address]Dr. Erica Abarca Albumin/Globulin [Mass ratio] 0.6 {ratio} Normal [facility] Comment on above: Performed By: #### B FURNITURE DUSTER, CMP ####[facility] Gzjtzvgqlh2024[address] [place], [place] [address]Dr. Erica Abarca ALP [Catalytic activity/Vol] 69 U/L Normal 46-116 [facility] Comment on above: Performed By: #### B FURNITURE DUSTER, CMP ####[facility] Xyphrojxim4868[address] [place], [place] [address]Dr. Erica Abarca ALT [Catalytic activity/Vol] 8 U/L Critically low 16-63 [facility] Comment on above: Performed By: #### B FURNITURE DUSTER, CMP ####[facility] Ykxwrazxdd1812[address] [place], [place] [address]Dr. Erica Abarca Anion gap [Moles/Vol] 9.8 mmol/L Normal [facility] Comment on above: Performed By: #### B FURNITURE DUSTER, CMP ####[facility] Meaqdvxcyw639172 [address] [place], [place] [address]Dr. Erica Abarca AST [Catalytic activity/Vol] 18 U/L Normal 15-37 [facility] Comment on above: Performed By: #### B FURNITURE DUSTER, CMP ####[facility] Tkvslpsduj304[address] [place], [place] [address]Dr. Erica Abarca Bilirubin [Mass/Vol] 0.8 mg/dL Normal 0.2-1.0 [facility] Comment on above: Performed By: #### B FURNITURE DUSTER, CMP ####[facility] Fgminuuxex9685[address] [place], [place] [address]Dr. Erica Abarca Calcium [Mass/Vol] 8.9 mg/dL Normal 8.5-10.1 [facility] Comment on above: Performed By: #### B FURNITURE DUSTER, CMP ####[facility] Rtpxqyxhtg4844[address] [place], [place] [address]Dr. Erica Abarca Chloride [Moles/Vol] 98 mmol/L Normal 98-107 [facility] Comment on above: Performed By: #### B FURNITURE DUSTER, CMP ####[facility] Qjcuioloyy213[address] [place], [place] [address]Dr. Erica Abarca CO2 [Moles/Vol] 33.7 mmol/L Critically high 21.0-32.0 [facility] Comment on above: Performed By: #### B FURNITURE DUSTER, CMP ####[facility] Alleesclbm216[address] [place], [place] [address]Dr. Erica Abarca Creatinine [Mass/Vol] 1.25 mg/dL Normal 0.70-1.30 [facility] Comment on above: Performed By: #### B FURNITURE DUSTER, CMP ####[facility] Ofwtlvroad8514[address] [place], [place] [address]Dr. Erica Tevin EGFR-AF AUSTRIAN >60 Normal >=60 [facility] Comment on above: Performed By: #### B FURNITURE DUSTER, CMP ####[facility] Fpkoxamkkh61[address] [place], [place] [address]Dr. Erica Tevin EGFR-NON AF AUSTRIAN 59 mL/min/1.73m2 Critically low >=60 [facility] Comment on above: Performed By: #### B FURNITURE DUSTER, CMP ####[facility] Ldvjnedzam105[address] [place], [place] [address]Dr. Erica Tevin Globulin (S) [Mass/Vol] 4.4 g/dL Normal [facility] Comment on above: Performed By: #### B FURNITURE DUSTER, CMP ####[facility] W[address]jvwzxzal[address] [place], [place] [address]Dr. Erica Abarca Glucose [Mass/Vol] 156 mg/dL Critically high 74-[address] [facility] Comment on above: Performed By: #### B FURNITURE DUSTER, CMP ####[facility] Zgzzjsowzz8036[address] [place], [place] [address]Dr. Erica Abarca Potassium [Moles/Vol] 3.5 mmol/L Normal 3.5-5.1 [facility] Comment on above: Performed By: #### B FURNITURE DUSTER, CMP ####[facility] Igcvxhmznx8520[address] [place], [place] [address]Dr. Erica Abarca Protein [Mass/Vol] 6.9 g/dL Normal 6.4-8.2 [facility] Comment on above: Performed By: #### B FURNITURE DUSTER, CMP ####[facility] Qywpsljfqu117[address] [place], [place] [address]Dr. Shiraemilia Abarca Sodium [Moles/Vol] 138 mmol/L Normal 136-145 [facility] Comment on above: Performed By: #### B FURNITURE DUSTER, CMP ####[facility] Wxlrbinjwj6[address] [place], [place] [address]Dr. Erica Tevin Urea nitrogen [Mass/Vol] 15.0 mg/dL Normal 7.0-18.0 [facility] Comment on above: Performed By: #### B FURNITURE DUSTER, CMP ####[facility] Eynspfextb5[address] [place], [place] [address]Dr. Erica Abarca Urea nitrogen/Creatinine [Mass ratio] 12.0 mg/mg Normal [facility] Comment on above: Performed By: #### B FURNITURE DUSTER, CMP ####[facility] Xwincnxsdm490[address] [place], [place] [address]Dr. Erica Abarca XR CHEST 1 Von 08-15-2022 XR CHEST 1 V Normal [facility] BNPon 08-14-2022 Natriuretic peptide B (Bld) [Mass/Vol] 4355.0 pg/mL Critically high <=900.0 [facility] Comment on above: Performed By: #### B FURNITURE DUSTER, CMP ####[facility] Iavxveqkrr315[address] [place], [place] [address]Dr. Shiraemilia Tevin CBC AUTO DIFFon 08-14-2022 BASO # 0.0 103/ul Normal 0.0-0.1 [facility] Comment on above: Performed By: #### C BC ####[facility] Zah[address]ifmkn[address] [place] [address]Dr. Erica Abarca Basophils/100 WBC (Bld) 0.6 % Normal 0.2-2.0 [facility] Comment on above: Performed By: #### C BC ####[facility] Yixyfogjxs11[address] [place], [place] [address]Dr. Erica Abarca EO # 0.2 103/ul Normal 0.0-0.7 [facility] Comment on above: Performed By: #### C BC ####[facility] Mejzrxkhze13[address] [place], [place] [address]Dr. Erica Abarca Eosinophils/100 WBC (Bld) 3.3 % Normal 0.9-7.0 [facility] Comment on above: Performed By: #### C BC ####[facility] Uqrvuhnokp[address] [place], [place] [address]Dr. Erica Abarca Erythrocyte distribution width (RBC) [Ratio] 20.2 % Critically high 11.0-15.0 [facility] Comment on above: Performed By: #### C BC ####[facility] Jzedwgrtfd[address] [place], [place] [address]Dr. Erica Abarca Hematocrit (Bld) [Volume fraction] 31.0 % Critically low 42.0-54.0 [facility] Comment on above: Performed By: #### C BC ####[facility] Rwuspwikvd7[address] [place], [place] [address]Dr. Erica Abarca Hemoglobin (Bld) [Mass/Vol] 8.7 g/dL Critically low 14.0-18.0 [facility] Comment on above: Performed By: #### C BC ####[facility] Pdlzbqkamr[address] [place], [place] [address]Dr. Erica Abarca IG # 0.04 10e3/ul Critically high 0.00-0.03 [facility] Comment on above: Performed By: #### C BC ####[facility] Ykaitfmxke6[address] [place] [address]Dr. Erica Abarca IG % 0.6 % Critically high 0.0-0.5 [facility] Comment on above: Performed By: #### C BC ####[facility] Bksgtmbafz30[address] [place] [address]Dr. Erica Tevin LYMPH # 0.8 103/ul Critically low 1.2-3.8 [facility] Comment on above: Performed By: #### C BC ####[facility] Bdupqtxrfl1171 [place] [address]Dr. Erica Tevin Lymphocytes/100 WBC (Bld) 11.4 % Critically low 20.5-60.0 [facility] Comment on above: Performed By: #### C BC ####[facility] Dksognpffw4322 [place] [address]Dr. Shiraemilia Abarca MANUAL DIFF REQ NO Normal [facility] Comment on above: Performed By: #### C BC ####[facility] Wmxppgyqpg65[address] [place] [address]Dr. Erica Tevin MCH (RBC) [Entitic mass] 21.3 pg Critically low 25.9-34.0 [facility] Comment on above: Performed By: #### C BC ####[facility] Ikzlxpmqrp[address] [place] [address]Dr. Erica Abarca MCHC (RBC) [Mass/Vol] 28.1 g/dL Critically low 29.9-35.2 [facility] Comment on above: Performed By: #### C BC ####[facility] [address]ltejxp[address] [place] [address]Dr. Erica Tevin MCV (RBC) [Entitic vol] 75.8 fL Critically low 80.0-94.0 [facility] Comment on above: Performed By: #### C BC ####[facility] Rmumnrcgng8[address] [place] [address]Dr. Erica Abarca MONO # 0.4 103/ul Normal 0.3-0.8 [facility] Comment on above: Performed By: #### C BC ####[facility] Itglhwhfcj1628 [place] [address]Dr. Erica Abarca Monocytes/100 WBC (Bld) 6.5 % Normal 1.7-12.0 [facility] Comment on above: Performed By: #### C BC ####[facility] Qrizjymvsr8753 [place] [address]Dr. Erica Abarca NEUT # 5.2 103/ul Normal 1.4-6.5 [facility] Comment on above: Performed By: #### C BC ####[facility] Ocgvmhijwl4551 [place] [address]Dr. Erica Abarca Neutrophils/100 WBC (Bld) 77.6 % Critically high 43.0-75.0 [facility] Comment on above: Performed By: #### C BC ####[facility] Weuqiyitxu[address] [place] [address]Dr. Erica Abarca Platelet mean volume (Bld) [Entitic vol] 8.3 fL Critically low 9.5-13.5 [facility] Comment on above: Performed By: #### C BC ####[facility] Odzytsqkck1451 [place] [address]Dr. Erica Abarca PLT 339 103/ul Normal 150-450 [facility] Comment on above: Performed By: #### C BC ####[facility] Qdaucghxem2114 [place] [address]Dr. Erica Abarca RBC 4.09 106/ul Critically low 4.70-6.10 [facility] Comment on above: Performed By: #### C BC ####[facility] Uowmwvzxlj6351 [place] [address]Dr. Erica Abarca WBC 6.8 103/ul Normal 4.0-11.0 [facility] Comment on above: Performed By: #### C BC ####[facility] Escfzhrpkj7669 [place] [address]Dr. Erica Abarca POINT OF CARE GLUCOSEon 07-27 Glucose [Mass/Vol] 172 mg/dL Critically high 74-[address] [facility] Comment on above: Performed By: #### P OCGLUC ####[facility] Cryilrbjmd3725 [place] [id number]. Erica Abarca Glucose [Mass/Vol] 206 mg/dL Critically high 74-106 [facility] Comment on above: Result Comment: Suri myrick Meter Performed By: #### P OCGLUC ####[facility] Tstavksdpc1218 [place] [address]Dr. Erica Abarca Glucose [Mass/Vol] 242 mg/dL Critically high 74-106 [facility] Comment on above: Performed By: #### P OCGLUC ####[facility] Ytaelcsndj2244 [place] [address]Dr. Erica Abarca PROF 14(COMP METB)on 023 Albumin [Mass/Vol] 2.3 g/dL Critically low 3.4-5.0 [facility] Comment on above: Performed By: #### B FURNITURE DUSTER, CMP ####[facility] Ojnmxbhqex23[address] [place], [place] [address]Dr. Erica Abarca Albumin/Globulin [Mass ratio] 0.5 {ratio} Normal [facility] Comment on above: Performed By: #### B FURNITURE DUSTER, CMP ####[facility] Xnwyhgpvxl740[address] [place], [place] [address]Dr. Erica Abarca ALP [Catalytic activity/Vol] 69 U/L Normal 46-116 [facility] Comment on above: Performed By: #### B FURNITURE DUSTER, CMP ####[facility] Asmgotkwzr905[address] [place], [place] [address]Dr. Erica Abarca ALT [Catalytic activity/Vol] 8 U/L Critically low 16-63 [facility] Comment on above: Performed By: #### B FURNITURE DUSTER, CMP ####[facility] Akdeoqmyet644[address] [place], [place] [address]Dr. Erica Abarca Anion gap [Moles/Vol] 11.3 mmol/L Normal [facility] Comment on above: Performed By: #### B FURNITURE DUSTER, CMP ####[facility] Slrmequjnb070[address] [place], [place] [address]Dr. Erica Abarca AST [Catalytic activity/Vol] 13 U/L Critically low 15-37 [facility] Comment on above: Performed By: #### B FURNITURE DUSTER, CMP ####[facility] Gcmozvdufu1412 [place] [address]Dr. Erica Abarca Bilirubin [Mass/Vol] 0.9 mg/dL Normal 0.2-1.0 [facility] Comment on above: Performed By: #### B FURNITURE DUSTER, CMP ####[facility] Ordtuujepy760[address] [place], [place] [address]Dr. Erica Abarca Calcium [Mass/Vol] 8.5 mg/dL Normal 8.5-10.1 [facility] Comment on above: Performed By: #### B FURNITURE DUSTER, CMP ####[facility] Hrlztbmyln665[address] [place], [place] [address]Dr. Erica Abarca Chloride [Moles/Vol] 96 mmol/L Critically low 98-107 [facility] Comment on above: Performed By: #### B FURNITURE DUSTER, CMP ####[facility] Xwmcdlktki9316[address] [place], [place] [address]Dr. Erica Abarca CO2 [Moles/Vol] 32.3 mmol/L Critically high 21.0-32.0 [facility] Comment on above: Performed By: #### B FURNITURE DUSTER, CMP ####[facility] Zuqgljkpcg946[address] [place], [place] [address]Dr. Erica Tevin Creatinine [Mass/Vol] 1.39 mg/dL Critically high 0.70-1.30 [facility] Comment on above: Performed By: #### B FURNITURE DUSTER, CMP ####[facility] Tgefinvwfk709[address] [place], [place] [address]Dr. Erica Tevin EGFR-AF AUSTRIAN >60 Normal >=60 [facility] Comment on above: Performed By: #### B FURNITURE DUSTER, CMP ####[facility] Ijdykoempu540[address] [place], [place] [address]Dr. Shiraemilia Tevin EGFR-NON AF AUSTRIAN 52 mL/min/1.73m2 Critically low >=60 [facility] Comment on above: Performed By: #### B FURNITURE DUSTER, CMP ####[facility] Zdtrzpsdok4475[address] [place], [place] [address]Dr. Shiraemilia Tevin Globulin (S) [Mass/Vol] 4.5 g/dL Normal [facility] Comment on above: Performed By: #### B FURNITURE DUSTER, CMP ####[facility] Wuhcmxfjjj975[address] [place], [place] [address]Dr. Erica Abarca Glucose [Mass/Vol] 212 mg/dL Critically high 74-[address] [facility] Comment on above: Performed By: #### B FURNITURE DUSTER, CMP ####[facility] Yosxkagfzf0944[address] [place], [place] [address]Dr. Shiraemilia Tevin Potassium [Moles/Vol] 3.6 mmol/L Normal 3.5-5.1 [facility] Comment on above: Performed By: #### B FURNITURE DUSTER, CMP ####[facility] Leirgscjjk834[address] [place], [place] [address]Dr. Erica Abarca Protein [Mass/Vol] 6.8 g/dL Normal 6.4-8.2 [facility] Comment on above: Performed By: #### B FURNITURE DUSTER, CMP ####[facility] Czssdinrvi27[address] [place], [place] [address]Dr. Erica Abarca Sodium [Moles/Vol] 136 mmol/L Normal 136-145 [facility] Comment on above: Performed By: #### B FURNITURE DUSTER, CMP ####[facility] Bnjxnwoord438[address] [place], [place] [address]Dr. Shiraemilia Abarca Urea nitrogen [Mass/Vol] 15.0 mg/dL Normal 7.0-18.0 [facility] Comment on above: Performed By: #### B FURNITURE DUSTER, CMP ####[facility] Ooxjdjmjug7660[address] [place], [place] [address]Dr. Shiraemilia Tevin Urea nitrogen/Creatinine [Mass ratio] 10.8 mg/mg Normal [facility] Comment on above: Performed By: #### B FURNITURE DUSTER, CMP ####[facility] Przzqxrudv[address] [place], [place] [address]Dr. Erica Abarca VANCOMYCIN TROUGHon 08-15-19 23 VANCOMYCIN TROUGH 25.8 ug/ml Critically high 5.0-20.0 [facility] Comment on above: Performed By: #### V ANCT ####[facility] Rqnatbwgzr40[address] [place], [place] [address]Dr. Erica Abarca BNPon 08-13-2022 Natriuretic peptide B (Bld) [Mass/Vol] 4617.0 pg/mL Critically high <=900.0 [facility] Comment on above: Performed By: #### B FURNITURE DUSTER, CMP ####[facility] Nfozhnkieu98[address] [place], [place] [address]Dr. Erica Abarca CBC AUTO DIFFon 08-13-2022 BASO # 0.0 103/ul Normal 0.0-0.1 [facility] Comment on above: Performed By: #### C BC ####[facility] Bslqrghycu9[address] [place], [place] [address]Dr. Erica Tevin Basophils/100 WBC (Bld) 0.6 % Normal 0.2-2.0 [facility] Comment on above: Performed By: #### C BC ####[facility] Nirlxivtbv[address] [place], [place] [address]Dr. Erica Abarca EO # 0.2 103/ul Normal 0.0-0.7 [facility] Comment on above: Performed By: #### C BC ####[facility] Vewgqpldgx[address] [place], [place] [address]Dr. Erica Abarca Eosinophils/100 WBC (Bld) 2.5 % Normal 0.9-7.0 [facility] Comment on above: Performed By: #### C BC ####[facility] Wldwhrnsmg37[address] [place], [place] [address]Dr. Erica Abarca Erythrocyte distribution width (RBC) [Ratio] 20.3 % Critically high 11.0-15.0 [facility] Comment on above: Performed By: #### C BC ####[facility] Hotkqxzubf607[address] [place], [place] [address]Dr. Erica Abarca Hematocrit (Bld) [Volume fraction] 28.5 % Critically low 42.0-54.0 [facility] Comment on above: Performed By: #### C BC ####[facility] Yuvttnflzd[address] [place], [place] [address]Dr. Erica Tevin Hemoglobin (Bld) [Mass/Vol] 8.3 g/dL Critically low 14.0-18.0 [facility] Comment on above: Performed By: #### C BC ####[facility] Mmrnmttbai5[address] [place] [address]DrCandi Abarca IG # 0.04 10e3/ul Critically high 0.00-0.03 [facility] Comment on above: Performed By: #### C BC ####[facility] Qkevhjexsd2335 [place] [address]DrCandi Abarca IG % 0.6 % Critically high 0.0-0.5 [facility] Comment on above: Performed By: #### C BC ####[facility] Xkhekylyqs1116 [place] [address]DrCandi Abarca LYMPH # 0.8 103/ul Critically low 1.2-3.8 [facility] Comment on above: Performed By: #### C BC ####[facility] Fcpzorlsls0232 [place] [address]DrCandi Abarca Lymphocytes/100 WBC (Bld) 10.9 % Critically low 20.5-60.0 [facility] Comment on above: Performed By: #### C BC ####[facility] Wxqaocaftf1510 [place] [place] [address]DrCandi Abarca MANUAL DIFF REQ NO Normal [facility] Comment on above: Performed By: #### C BC ####[facility] Qfkkpjaugy4094 [place] [address]DrCandi Abarca MCH (RBC) [Entitic mass] 22.0 pg Critically low 25.9-34.0 [facility] Comment on above: Performed By: #### C BC ####[facility] Mcmiaiuwoq5723 [place] [id number] Abarca MCHC (RBC) [Mass/Vol] 29.1 g/dL Critically low 29.9-35.2 [facility] Comment on above: Performed By: #### C BC ####[facility] Keggejeqoy8928 [place] [id number] Abarca MCV (RBC) [Entitic vol] 75.6 fL Critically low 80.0-94.0 [facility] Comment on above: Performed By: #### C BC ####[facility] Jztwyzmlii6631 [place] [phone]. Erica Abarca MONO # 0.4 103/ul Normal 0.3-0.8 [facility] Comment on above: Performed By: #### C BC ####[facility] Yurvzlharl4795 [place] [id number]. Erica Tevin Monocytes/100 WBC (Bld) 5.9 % Normal 1.7-12.0 [facility] Comment on above: Performed By: #### C BC ####[facility] Aeivjlvkxq4148 [place] [phone]. Erica Abarca NEUT # 5.6 103/ul Normal 1.4-6.5 [facility] Comment on above: Performed By: #### C BC ####[facility] Hdqrjplhle3416 [place] [address]Dr. Shiraemilia Abarca Neutrophils/100 WBC (Bld) 79.5 % Critically high 43.0-75.0 [facility] Comment on above: Performed By: #### C BC ####[facility] Kzqwylugvz3838 [place] [id number]. Erica Tevin Platelet mean volume (Bld) [Entitic vol] 8.5 fL Critically low 9.5-13.5 [facility] Comment on above: Performed By: #### C BC ####[facility] Wezkkudajq2776 [place] [id number]. Erica Tevin PLT 312 103/ul Normal 150-450 [facility] Comment on above: Performed By: #### C BC ####[facility] Cuycsdyfvw3021 [place] [phone]. Erica Abarca RBC 3.77 106/ul Critically low 4.70-6.10 [facility] Comment on above: Performed By: #### C BC ####[facility] Boxpmxebus7066 [place] [phone]. Erica Abarca WBC 7.1 103/ul Normal 4.0-11.0 [facility] Comment on above: Performed By: #### C BC ####[facility] Clnhrpuqay8795 [place] [address]Dr. Erica Abarca POINT OF CARE GLUCOSEon 07-27 Glucose [Mass/Vol] 205 mg/dL Critically high 74-106 [facility] Comment on above: Performed By: #### P OCGLUC ####[facility] Xmocoukgym8014 [place] [address]Dr. Erica Abarca Glucose [Mass/Vol] 184 mg/dL Critically high 74-106 [facility] Comment on above: Performed By: #### P OCGLUC ####[facility] Obmzbacfsg5500 [place] [address]Dr. Erica Abarca Glucose [Mass/Vol] 178 mg/dL Critically high 74-106 [facility] Comment on above: Performed By: #### P OCGLUC ####[facility] Pprtfjejzr8253 [place] [address]Dr. Erica Abarca PROF 14(COMP METB)on 023 Albumin [Mass/Vol] 2.2 g/dL Critically low 3.4-5.0 [facility] Comment on above: Performed By: #### B FURNITURE DUSTER, CMP ####[facility] Undnqijdxb204[address] [place], [place] [address]Dr. Erica Abarca Albumin/Globulin [Mass ratio] 0.5 {ratio} Normal [facility] Comment on above: Performed By: #### B FURNITURE DUSTER, CMP ####[facility] Nudeycboxc1979 [place] [address]Dr. Erica Abarca ALP [Catalytic activity/Vol] 79 U/L Normal 46-116 [facility] Comment on above: Performed By: #### B FURNITURE DUSTER, CMP ####[facility] Qiujvkcsuu236172 [address] [place], [place] [address]Dr. Erica Abarca ALT [Catalytic activity/Vol] 8 U/L Critically low 16-63 [facility] Comment on above: Performed By: #### B FURNITURE DUSTER, CMP ####[facility] Bqdqfsfyor7534[address] [place], [place] [address]Dr. Erica Abarca Anion gap [Moles/Vol] 10.2 mmol/L Normal [facility] Comment on above: Performed By: #### B FURNITURE DUSTER, CMP ####[facility] Sbgperigyd7590[address] [place], [place] [address]Dr. Erica Abarca AST [Catalytic activity/Vol] 12 U/L Critically low 15-37 [facility] Comment on above: Performed By: #### B FURNITURE DUSTER, CMP ####[facility] Nsurwzjevl317[address] [place], [place] [address]Dr. Erica Abarca Bilirubin [Mass/Vol] 0.9 mg/dL Normal 0.2-1.0 [facility] Comment on above: Performed By: #### B FURNITURE DUSTER, CMP ####[facility] Zlhakkexyi897472 [address] [place], [place] [address]Dr. Shiraemilia Abarca Calcium [Mass/Vol] 8.0 mg/dL Critically low 8.5-10.1 [facility] Comment on above: Performed By: #### B FURNITURE DUSTER, CMP ####[facility] Yqtnjlgyvx5320[address] [place], [place] [address]Dr. Erica Abarca Chloride [Moles/Vol] 100 mmol/L Normal 98-107 [facility] Comment on above: Performed By: #### B FURNITURE DUSTER, CMP ####[facility] Renlsqpigl427372 [address] [place], [place] [address]Dr. Shiraemilia Abarca CO2 [Moles/Vol] 31.5 mmol/L Normal 21.0-32.0 [facility] Comment on above: Performed By: #### B FURNITURE DUSTER, CMP ####[facility] Xrfsmuedrj4895[address] [place], [place] [address]Dr. Erica Tevin Creatinine [Mass/Vol] 1.41 mg/dL Critically high 0.70-1.30 [facility] Comment on above: Performed By: #### B FURNITURE DUSTER, CMP ####[facility] Erfpdyrugy627[address] [place], [place] [address]Dr. Shiraemilia Tevin EGFR-AF AUSTRIAN >60 Normal >=60 [facility] Comment on above: Performed By: #### B FURNITURE DUSTER, CMP ####[facility] Kqevkuvczk3999[address] [place], [place] [address]Dr. Erica Abarca EGFR-NON AF AUSTRIAN 52 mL/min/1.73m2 Critically low >=60 [facility] Comment on above: Performed By: #### B FURNITURE DUSTER, CMP ####[facility] Kxjiducyuo809[address] [place], [place] [address]Dr. Erica Abarca Globulin (S) [Mass/Vol] 4.1 g/dL Normal [facility] Comment on above: Performed By: #### B FURNITURE DUSTER, CMP ####[facility] Mxyeknruxi628[address] [place], [place] [address]Dr. Erica Abarca Glucose [Mass/Vol] 173 mg/dL Critically high 74-[address] [facility] Comment on above: Performed By: #### B FURNITURE DUSTER, CMP ####[facility] Rjzwrnymet8867[address] [place], [place] [address]Dr. Erica Abarca Potassium [Moles/Vol] 3.7 mmol/L Normal 3.5-5.1 [facility] Comment on above: Performed By: #### B FURNITURE DUSTER, CMP ####[facility] Psalgksjyl815972 [address] [place], [place] [address]Dr. Erica Abarca Protein [Mass/Vol] 6.3 g/dL Critically low 6.4-8.2 [facility] Comment on above: Performed By: #### B FURNITURE DUSTER, CMP ####[facility] Jyvugdqbow8340[address] [place], [place] [address]Dr. Erica Abarca Sodium [Moles/Vol] 138 mmol/L Normal 136-145 [facility] Comment on above: Performed By: #### B FURNITURE DUSTER, CMP ####[facility] Ouecbsznrs6864[address] [place], [place] [address]Dr. Erica Abarca Urea nitrogen [Mass/Vol] 13.0 mg/dL Normal 7.0-18.0 [facility] Comment on above: Performed By: #### B FURNITURE DUSTER, CMP ####[facility] Xpncejixnx3470[address] [place], [place] [address]Dr. Erica Abarca Urea nitrogen/Creatinine [Mass ratio] 9.2 mg/mg Normal [facility] Comment on above: Performed By: #### B FURNITURE DUSTER, CMP ####[facility] Kxqxxbmehv3289[address] [place], [place] [address]Dr. Erica Abarca BNPon 08-12-2022 Natriuretic peptide B (Bld) [Mass/Vol] 3998.0 pg/mL Critically high <=900.0 [facility] Comment on above: Performed By: #### C MP, BNP ####[facility] Ilrmnvhqrf457[address] [place], [place] [address]Dr. Erica Abarca CBC AUTO DIFFon 08-12-2022 BASO # 0.0 103/ul Normal 0.0-0.1 [facility] Comment on above: Performed By: #### C BC ####[facility] Aoobfplpyp1117[address] [place], [place] [address]Dr. Erica Abarca Basophils/100 WBC (Bld) 0.5 % Normal 0.2-2.0 [facility] Comment on above: Performed By: #### C BC ####[facility] Uvjiukayys838372 [address] [place], [place] [address]Dr. Erica Abarca EO # 0.2 103/ul Normal 0.0-0.7 [facility] Comment on above: Performed By: #### C BC ####[facility] Itpipfpdlb456072 [address] [place], [place] [address]Dr. Erica Abarca Eosinophils/100 WBC (Bld) 2.9 % Normal 0.9-7.0 [facility] Comment on above: Performed By: #### C BC ####[facility] Dwsmvmcpss3734[address] [place], [place] [address]Dr. Erica Abarca Erythrocyte distribution width (RBC) [Ratio] 19.9 % Critically high 11.0-15.0 [facility] Comment on above: Performed By: #### C BC ####[facility] Ikydruzhrf529672 [address] [place], [place] [address]Dr. Erica Abarca Hematocrit (Bld) [Volume fraction] 32.0 % Critically low 42.0-54.0 [facility] Comment on above: Performed By: #### C BC ####[facility] Ecrsymnnmm475172 [address] [place], [place] [address]Dr. Erica Abarca Hemoglobin (Bld) [Mass/Vol] 9.1 g/dL Critically low 14.0-18.0 [facility] Comment on above: Performed By: #### C BC ####[facility] Srpwbhhhzz9645 [place] [address]Dr. Erica Abarca IG # 0.04 10e3/ul Critically high 0.00-0.03 [facility] Comment on above: Performed By: #### C BC ####[facility] Lyeiwwmgbp8923 [place] [address]Dr. Erica Abarca IG % 0.5 % Normal 0.0-0.5 [facility] Comment on above: Performed By: #### C BC ####[facility] Ckphyjmvjl1614[address] [place], [place] [address]DrCandi Abarca LYMPH # 0.9 103/ul Critically low 1.2-3.8 [facility] Comment on above: Performed By: #### C BC ####[facility] Ezdayhujbv5593 [place] [address]Dr. Erica Abarca Lymphocytes/100 WBC (Bld) 10.9 % Critically low 20.5-60.0 [facility] Comment on above: Performed By: #### C BC ####[facility] Kzzvrafmrs969[address] [place], [place] [address]Dr. Erica Abarca MANUAL DIFF REQ NO Normal [facility] Comment on above: Performed By: #### C BC ####[facility] Mrlinimqpu7280 [place] [address]Dr. Erica Abarca MCH (RBC) [Entitic mass] 21.6 pg Critically low 25.9-34.0 [facility] Comment on above: Performed By: #### C BC ####[facility] Robszumqdl089[address] [place], [place] [address]Dr. Erica Abarca MCHC (RBC) [Mass/Vol] 28.4 g/dL Critically low 29.9-35.2 [facility] Comment on above: Performed By: #### C BC ####[facility] Pmkerhfvvv4110[address] [place], [place] [address]Dr. Erica Abarca MCV (RBC) [Entitic vol] 75.8 fL Critically low 80.0-94.0 [facility] Comment on above: Performed By: #### C BC ####[facility] Outlzmjctf5411 [place] [id number]. Silvaemilia Abarca MONO # 0.5 103/ul Normal 0.3-0.8 [facility] Comment on above: Performed By: #### C BC ####[facility] Irzqvlooiw4833[address] [place], [place] [address]DrCandi Abarca Monocytes/100 WBC (Bld) 5.5 % Normal 1.7-12.0 [facility] Comment on above: Performed By: #### C BC ####[facility] Ztexbjhrhc7659[address] [place], [place] [address]DrCandi Silvaemilia Abarca NEUT # 6.7 103/ul Critically high 1.4-6.5 [facility] Comment on above: Performed By: #### C BC ####[facility] Sqxioxlgdq6729[address] [place], [place] [address]DrCandi Abacra Neutrophils/100 WBC (Bld) 79.7 % Critically high 43.0-75.0 [facility] Comment on above: Performed By: #### C BC ####[facility] Gtykrhvxmp8799[address] [place], [place] [address]DrCandi Abarca Platelet mean volume (Bld) [Entitic vol] 8.8 fL Critically low 9.5-13.5 [facility] Comment on above: Performed By: #### C BC ####[facility] Hygoioducj[address] [place], [place] [id number] Abarca PLT 320 103/ul Normal 150-450 [facility] Comment on above: Performed By: #### C BC ####[facility] Dhbogwpiej09[address] [place], [place] [id number] Abarca RBC 4.22 106/ul Critically low 4.70-6.10 [facility] Comment on above: Performed By: #### C BC ####[facility] Icbkisnjyo4350[address] [place], [place] [id number] Abarca WBC 8.4 103/ul Normal 4.0-11.0 [facility] Comment on above: Performed By: #### C BC ####[facility] Yyljsweqow4149 [place] [id number]. Erica Abarca CULTURE ANAEROBICon 08-13-19 23 CULTURE ANAEROBIC Culture Observations: No growth of anaerobes at 72 hours. Normal [facility] Comment on above: Performed By: #### A NACX ####[facility] Wfevnnzkha3838[address] [place], [place] [id number]. Shiraemilia Tevin CULTURE WOUNDon 08-12-2022 CULTURE WOUND Normal [facility] Comment on above: Performed By: #### W OUNDCX ####[facility] Zdlzevhvjl9364[address] [place], [place] [address]Dr. Erica Abarca GRAM STAINon 08-12-2022 DIPHTHEROIDS Normal [facility] Comment on above: Performed By: #### G STAIN ####[facility] Dtfkglvexg887[address] [place], [place] [address]Dr. Erica Abarca EPITHELIALS Normal [facility] Comment on above: Performed By: #### G STAIN ####[facility] Npphaxkqqp8[address] [place], [place] [address]Dr. Erica Abarca FUNGAL ELEMENTS Normal [facility] Comment on above: Performed By: #### G STAIN ####[facility] Wudjsgismq4550 [place] [id number]. Erica Abarca GRAM NEG BACILLI Normal [facility] Comment on above: Performed By: #### G STAIN ####[facility] Cglzwxvppn8351 [place] [address]Dr. Erica Abarca GRAM NEG DIPPLOCOCCI Normal [facility] Comment on above: Performed By: #### G STAIN ####[facility] Zsguoodqvm219[address] [place], [place] [address]Dr. Erica Abarca GRAM POS BACILLI Normal [facility] Comment on above: Performed By: #### G STAIN ####[facility] Ytelqryqyf5137 [place] [address]Dr. Erica Abarca GRAM POSITIVE COCCI FEW Normal [facility] Comment on above: Performed By: #### G STAIN ####[facility] Chvpkhakay5061 [place] [address]Dr. Erica Abarca GRAM STAIN SOURCE Rt Ankle Hematoma Normal [facility] Comment on above: Performed By: #### G STAIN ####[facility] Ekgguipkbg816[address] [place], [place] [address]Dr. Erica Abarca GS_DIPTH Normal [facility] Comment on above: Performed By: #### G STAIN ####[facility] Jmtxgfwlpy168[address] [place], [place] [address]Dr. Erica Abarca WBC RARE Normal [facility] Comment on above: Performed By: #### G STAIN ####[facility] Ijnetlpcex9822[address] [place], [place] [address]Dr. Erica Abarca HEMOGLOBIN AND HEMATOCRITon 08-12-2022 Hematocrit (Bld) [Volume fraction] 30.0 % Critically low 42.0-54.0 [facility] Comment on above: Performed By: #### H GBHCT ####[facility] Deroflivnq616[address] [place], [place] [address]Dr. Erica Abarca Hemoglobin (Bld) [Mass/Vol] 8.7 g/dL Critically low 14.0-18.0 [facility] Comment on above: Performed By: #### H GBHCT ####[facility] Dizujpghzr9[address] [place], [place] [address]Dr. Erica Abarca POINT OF CARE GLUCOSEon 07-27 Glucose [Mass/Vol] 186 mg/dL Critically high 74-106 [facility] Comment on above: Performed By: #### P OCGLUC ####[facility] Zonbjggwvb14[address] [place], [place] [address]Dr. Erica Abarca Glucose [Mass/Vol] 175 mg/dL Critically high -106 [facility] Comment on above: Performed By: #### P OCGLUC ####[facility] Nastsjmehr320[address] [place], [place] [address]Dr. Erica Abarca Glucose [Mass/Vol] 164 mg/dL Critically high -106 [facility] Comment on above: Performed By: #### P OCGLUC ####[facility] Qqiucgxaly6540 [place] [address]Dr. Erica Abarca Glucose [Mass/Vol] 134 mg/dL Critically high 74-106 [facility] Comment on above: Performed By: #### P OCGLUC ####[facility] Oqhxarnggy5422 [place] [address]Dr. Erica Abarca PROF 14(COMP METB)on 023 Albumin [Mass/Vol] 2.4 g/dL Critically low 3.4-5.0 [facility] Comment on above: Performed By: #### C MP, BNP ####[facility] Vxwcmxatrl0072 [place] [address]Dr. Erica Abarca Albumin/Globulin [Mass ratio] 0.5 {ratio} Normal [facility] Comment on above: Performed By: #### C MP, BNP ####[facility] Lcluatvror535[address] [place], [place] [address]Dr. Erica Abarca ALP [Catalytic activity/Vol] 77 U/L Normal 46-116 [facility] Comment on above: Performed By: #### C MP, BNP ####[facility] Kteqimjuab7247 [place] [address]Dr. Erica Abarca ALT [Catalytic activity/Vol] 11 U/L Critically low 16-63 [facility] Comment on above: Performed By: #### C MP, BNP ####[facility] Qrijljviru3108 [place] [address]Dr. Erica Abarca Anion gap [Moles/Vol] 11.3 mmol/L Normal [facility] Comment on above: Performed By: #### C MP, BNP ####[facility] Jfsgpkhbwv6242 [place] [address]Dr. Erica Abarca AST [Catalytic activity/Vol] 15 U/L Normal 15-37 [facility] Comment on above: Performed By: #### C MP, BNP ####[facility] Pejwectdky558[address] [place], [place] [address]Dr. Erica Abarca Bilirubin [Mass/Vol] 1.1 mg/dL Critically high 0.2-1.0 [facility] Comment on above: Performed By: #### C MP, BNP ####[facility] Joratttprv0432 [place] [address]Dr. Erica Abarca Calcium [Mass/Vol] 8.1 mg/dL Critically low 8.5-10.1 [facility] Comment on above: Performed By: #### C MP, BNP ####[facility] Twutljzefv5723[address] [place], [place] [address]Dr. Erica Abarca Chloride [Moles/Vol] 104 mmol/L Normal 98-107 [facility] Comment on above: Performed By: #### C MP, BNP ####[facility] Vfushypnmi512372 [address] [place], [place] [address]Dr. Erica Abarca CO2 [Moles/Vol] 27.7 mmol/L Normal 21.0-32.0 [facility] Comment on above: Performed By: #### C MP, BNP ####[facility] Hmdfopllsx500[address] [place], [place] [address]Dr. Erica Abarca Creatinine [Mass/Vol] 1.34 mg/dL Critically high 0.70-1.30 [facility] Comment on above: Performed By: #### C MP, BNP ####[facility] Ocudjnyrvz[address] [place], [place] [address]Dr. Erica Abarca EGFR-AF AUSTRIAN >60 Normal >=60 [facility] Comment on above: Performed By: #### C MP, BNP ####[facility] Nmdwifcsna416[address] [place], [place] [address]Dr. Erica Abarca EGFR-NON AF AUSTRIAN 55 mL/min/1.73m2 Critically low >=60 [facility] Comment on above: Performed By: #### C MP, BNP ####[facility] Fkaubqwzzt910[address] [place], [place] [address]Dr. Erica Abarca Globulin (S) [Mass/Vol] 4.4 g/dL Normal [facility] Comment on above: Performed By: #### C MP, BNP ####[facility] Iezghclzxq8569[address] [place], [place] [address]Dr. Erica Tevin Glucose [Mass/Vol] 118 mg/dL Critically high 74-[address] [facility] Comment on above: Performed By: #### C MP, BNP ####[facility] Eteqgswjcz668[address] [place], [place] [address]Dr. Erica Abarca Potassium [Moles/Vol] 4.0 mmol/L Normal 3.5-5.1 [facility] Comment on above: Performed By: #### C MP, BNP ####[facility] Squkgukvzm058[address] [place], [place] [address]Dr. Erica Abarca Protein [Mass/Vol] 6.8 g/dL Normal 6.4-8.2 [facility] Comment on above: Performed By: #### C MP, BNP ####[facility] Pkxnwrtyyh[address] [place], [place] [address]Dr. Shiraemilia Abarca Sodium [Moles/Vol] 139 mmol/L Normal 136-145 [facility] Comment on above: Performed By: #### C MP, BNP ####[facility] Ejvsvjdahd647[address] [place], [place] [address]Dr. Erica Abarca Urea nitrogen [Mass/Vol] 15.0 mg/dL Normal 7.0-18.0 [facility] Comment on above: Performed By: #### C MP, BNP ####[facility] Wuudynvzqp5511[address] [place], [place] [address]Dr. Shiraemilia Tevin Urea nitrogen/Creatinine [Mass ratio] 11.2 mg/mg Normal [facility] Comment on above: Performed By: #### C MP, BNP ####[facility] Fayufrxhcf0565[address] [place], [place] [address]Dr. Erica Abarca XR ANKLE RT 2Von 08-12-2022 XR ANKLE RT 2V Normal [facility] BNPon 08-11-2022 Natriuretic peptide B (Bld) [Mass/Vol] 3601.0 pg/mL Critically high <=900.0 [facility] Comment on above: Performed By: #### B FURNITURE DUSTER, CMP ####[facility] Oangakrtxb024[address] [place], [place] [address]Dr. Erica Abarca CBC AUTO DIFFon 08-11-2022 BASO # 0.1 103/ul Normal 0.0-0.1 [facility] Comment on above: Performed By: #### C BC ####[facility] Cafcdyvpnu6891 [place] [address]Dr. Erica Tevin Basophils/100 WBC (Bld) 0.7 % Normal 0.2-2.0 [facility] Comment on above: Performed By: #### C BC ####[facility] Fnxwokcehy399[address] [place], [place] [address]Dr. Erica Abarca EO # 0.2 103/ul Normal 0.0-0.7 [facility] Comment on above: Performed By: #### C BC ####[facility] Fxwdpnspiv0168[address] [place], [place] [address]Dr. Erica Tevin Eosinophils/100 WBC (Bld) 2.7 % Normal 0.9-7.0 [facility] Comment on above: Performed By: #### C BC ####[facility] Qtolonggio020[address] [place], [place] [address]Dr. Erica Abarca Erythrocyte distribution width (RBC) [Ratio] 19.9 % Critically high 11.0-15.0 [facility] Comment on above: Performed By: #### C BC ####[facility] Hqtxuutnut7229[address] [place], [place] [address]Dr. Erica Tevin Hematocrit (Bld) [Volume fraction] 32.3 % Critically low 42.0-54.0 [facility] Comment on above: Performed By: #### C BC ####[facility] Dkyybvabpl4601[address] [place], [place] [address]Dr. Erica Tevin Hemoglobin (Bld) [Mass/Vol] 9.1 g/dL Critically low 14.0-18.0 [facility] Comment on above: Performed By: #### C BC ####[facility] Efjcatxiav7480[address] [place], [place] [address]Dr. Erica Abarca IG # 0.04 10e3/ul Critically high 0.00-0.03 [facility] Comment on above: Performed By: #### C BC ####[facility] Gzmqpfoxnm34[address] [place], [place] [address]DrCandi Abarca IG % 0.6 % Critically high 0.0-0.5 [facility] Comment on above: Performed By: #### C BC ####[facility] Uuhnyocids1105 [place] [address]DrCandi Abarca LYMPH # 0.7 103/ul Critically low 1.2-3.8 [facility] Comment on above: Performed By: #### C BC ####[facility] Qgznwcajbc4722 [place] [address]DrCandi Abarca Lymphocytes/100 WBC (Bld) 10.5 % Critically low 20.5-60.0 [facility] Comment on above: Performed By: #### C BC ####[facility] Xujegijmik87[address] [place], [place] [address]DrCandi Abarca MANUAL DIFF REQ NO Normal [facility] Comment on above: Performed By: #### C BC ####[facility] T[address]rrpgy[address] [place] [address]DrCandi Abarca MCH (RBC) [Entitic mass] 21.5 pg Critically low 25.9-34.0 [facility] Comment on above: Performed By: #### C BC ####[facility] Didtsubysj85[address] [place], [place] [address]DrCandi Abarca MCHC (RBC) [Mass/Vol] 28.2 g/dL Critically low 29.9-35.2 [facility] Comment on above: Performed By: #### C BC ####[facility] Ahjreqtwdu256172 [address] [place], [place] [address]DrCandi Abarca MCV (RBC) [Entitic vol] 76.4 fL Critically low 80.0-94.0 [facility] Comment on above: Performed By: #### C BC ####[facility] Qdupwhbegq344[address] [place], [place] [address]DrCandi Abarca MONO # 0.4 103/ul Normal 0.3-0.8 [facility] Comment on above: Performed By: #### C BC ####[facility] Rkxagacfzl2375[address] [place], [place] [address]DrCandi Abarca Monocytes/100 WBC (Bld) 6.6 % Normal 1.7-12.0 [facility] Comment on above: Performed By: #### C BC ####[facility] [address]ieljgjaj[address] [place] [id number]. Erica Abarca NEUT # 5.3 103/ul Normal 1.4-6.5 [facility] Comment on above: Performed By: #### C BC ####[facility] Zusntalqtx146172 [address] [place], [place] [address]Dr. Erica Abarca Neutrophils/100 WBC (Bld) 78.9 % Critically high 43.0-75.0 [facility] Comment on above: Performed By: #### C BC ####[facility] Wsncilpqlj180872 [address] [place], [place] [address]Dr. Erica Abarca Platelet mean volume (Bld) [Entitic vol] 8.6 fL Critically low 9.5-13.5 [facility] Comment on above: Performed By: #### C BC ####[facility] Ubzauuccmt6567[address] [place], [place] [address]Dr. Erica Abarca PLT 286 103/ul Normal 150-450 [facility] Comment on above: Performed By: #### C BC ####[facility] Vrwquaebve8[address] [place], [place] [id number]. Erica Abarca RBC 4.23 106/ul Critically low 4.70-6.10 [facility] Comment on above: Performed By: #### C BC ####[facility] Npmafinlrq7817[address] [place], [place] [id number]. Erica Abarca WBC 6.7 103/ul Normal 4.0-11.0 [facility] Comment on above: Performed By: #### C BC ####[facility] Frxlqdasft26217[address] [place], [place] [address]DrCandi Erica Abarca BASO # 0.0 103/ul Normal 0.0-0.1 [facility] Comment on above: Performed By: #### C BC ####[facility] Bjrdfhluoo2213[address] [place], [place] [id number]. Erica Abarca Basophils/100 WBC (Bld) 0.7 % Normal 0.2-2.0 [facility] Comment on above: Performed By: #### C BC ####[facility] Euxgkavrqo9817 [place] [address]DrCandi Abarca EO # 0.2 103/ul Normal 0.0-0.7 [facility] Comment on above: Performed By: #### C BC ####[facility] Hxcsijvpfy695[address] [place], [place] [address]Dr. Erica Abarca Eosinophils/100 WBC (Bld) 2.7 % Normal 0.9-7.0 [facility] Comment on above: Performed By: #### C BC ####[facility] Mxsmqnnsqn886272 [address] [place], [place] [address]Dr. Erica Abarca Erythrocyte distribution width (RBC) [Ratio] 18.8 % Critically high 11.0-15.0 [facility] Comment on above: Performed By: #### C BC ####[facility] Fxskpzjvcp488572 [address] [place], [place] [address]Dr. Erica Abarca Hematocrit (Bld) [Volume fraction] 26.7 % Critically low 42.0-54.0 [facility] Comment on above: Performed By: #### C BC ####[facility] Jhjyjvmstq4834[address] [place], [place] [address]DrCandi Abarca Hemoglobin (Bld) [Mass/Vol] 7.5 g/dL Critically low 14.0-18.0 [facility] Comment on above: Performed By: #### C BC ####[facility] Qctiymkiej517272 [address] [place], [place] [address]DrCandi Abarca IG # 0.04 10e3/ul Critically high 0.00-0.03 [facility] Comment on above: Performed By: #### C BC ####[facility] Gnkkslqxfw259872 [address] [place], [place] [address]Dr. Erica Abarca IG % 0.7 % Critically high 0.0-0.5 [facility] Comment on above: Performed By: #### C BC ####[facility] Badiunxuvm3779[address] [place], [place] [address]DrCandi Abarca LYMPH # 0.7 103/ul Critically low 1.2-3.8 [facility] Comment on above: Performed By: #### C BC ####[facility] Lmwzeacdsx6[address] [place] [address]DrCandi Shiraemilia Abarca Lymphocytes/100 WBC (Bld) 11.4 % Critically low 20.5-60.0 [facility] Comment on above: Performed By: #### C BC ####[facility] Byxwufwlfv5785 [place] [address]DrCandi Abarca MANUAL DIFF REQ NO Normal [facility] Comment on above: Performed By: #### C BC ####[facility] Nblqiiiuay1556 [place] [address]DrCandi Abarca MCH (RBC) [Entitic mass] 20.9 pg Critically low 25.9-34.0 [facility] Comment on above: Performed By: #### C BC ####[facility] Jkksegecop432[address] [place], [place] [address]DrCandi Abarca MCHC (RBC) [Mass/Vol] 28.1 g/dL Critically low 29.9-35.2 [facility] Comment on above: Performed By: #### C BC ####[facility] Povhbbsfwp1499[address] [place], [place] [address]DrCandi Abarca MCV (RBC) [Entitic vol] 74.4 fL Critically low 80.0-94.0 [facility] Comment on above: Performed By: #### C BC ####[facility] Zoveickyqq1020 [place] [address]DrCandi Abarca MONO # 0.5 103/ul Normal 0.3-0.8 [facility] Comment on above: Performed By: #### C BC ####[facility] Fydplxyfya5667[address] [place], [place] [address]DrCandi Abarca Monocytes/100 WBC (Bld) 7.6 % Normal 1.7-12.0 [facility] Comment on above: Performed By: #### C BC ####[facility] Eccjlbfhzd619172 [address] [place], [place] [address]Dr. Erica Abarca NEUT # 4.6 103/ul Normal 1.4-6.5 [facility] Comment on above: Performed By: #### C BC ####[facility] Jtcckwlshp1223 [place] [address]Dr. Erica Abarca Neutrophils/100 WBC (Bld) 76.9 % Critically high 43.0-75.0 [facility] Comment on above: Performed By: #### C BC ####[facility] Lssfqmygaf6604 [place] [address]Dr. Erica Abarca Platelet mean volume (Bld) [Entitic vol] 8.9 fL Critically low 9.5-13.5 [facility] Comment on above: Performed By: #### C BC ####[facility] Secsenvquh[address] [place] [address]Dr. Erica Abarca PLT 265 103/ul Normal 150-450 [facility] Comment on above: Performed By: #### C BC ####[facility] Fgkwioywgs2311[address] [place], [place] [address]Dr. Erica Abarca RBC 3.59 106/ul Critically low 4.70-6.10 [facility] Comment on above: Performed By: #### C BC ####[facility] Wppejhzssg502072 [address] [place], [place] [address]Dr. Erica Abarca WBC 5.9 103/ul Normal 4.0-11.0 [facility] Comment on above: Performed By: #### C BC ####[facility] Syciljowoa638072 [address] [place], [place] [address]Dr. Erica Abarca BASO # 0.0 103/ul Normal 0.0-0.1 [facility] Comment on above: Performed By: #### C BC ####[facility] Floqiwccus881272 [address] [place], [place] [address]Dr. Erica Abarca Basophils/100 WBC (Bld) 0.5 % Normal 0.2-2.0 [facility] Comment on above: Performed By: #### C BC ####[facility] Bjdarbamxu064172 [address] [place], [place] [address]Dr. Erica Abarca EO # 0.2 103/ul Normal 0.0-0.7 [facility] Comment on above: Performed By: #### C BC ####[facility] Vrxkpxlmip8894 [place] [address]Dr. Erica Abarca Eosinophils/100 WBC (Bld) 2.9 % Normal 0.9-7.0 [facility] Comment on above: Performed By: #### C BC ####[facility] Xkjskuqlkn683972 [address] [place], [place] [address]Dr. Erica Abarca Erythrocyte distribution width (RBC) [Ratio] 18.9 % Critically high 11.0-15.0 [facility] Comment on above: Performed By: #### C BC ####[facility] Xqrkpbqkwi801[address] [place], [place] [address]Dr. Erica Abarca Hematocrit (Bld) [Volume fraction] 27.5 % Critically low 42.0-54.0 [facility] Comment on above: Performed By: #### C BC ####[facility] Urghtiwvtk9735[address] [place], [place] [address]Dr. Erica Abarca Hemoglobin (Bld) [Mass/Vol] 7.7 g/dL Critically low 14.0-18.0 [facility] Comment on above: Performed By: #### C BC ####[facility] Ljqeqzdeko7568[address] [place], [place] [address]Dr. Erica Abarca IG # 0.03 10e3/ul Normal 0.00-0.03 [facility] Comment on above: Performed By: #### C BC ####[facility] Dqvlubxsfx201972 [address] [place], [place] [address]Dr. Erica Abarca IG % 0.5 % Normal 0.0-0.5 [facility] Comment on above: Performed By: #### C BC ####[facility] Vbcgutxzhu529572 [address] [place], [place] [address]Dr. Erica Abarca LYMPH # 0.7 103/ul Critically low 1.2-3.8 [facility] Comment on above: Performed By: #### C BC ####[facility] Mwcrgqubey9429[address] [place], [place] [address]Dr. Erica Abarca Lymphocytes/100 WBC (Bld) 12.4 % Critically low 20.5-60.0 [facility] Comment on above: Performed By: #### C BC ####[facility] Qbqdfhbsit1901 [place] [address]DrCandi Abarca MANUAL DIFF REQ NO Normal [facility] Comment on above: Performed By: #### C BC ####[facility] Lytedbwxdq3889 [place] [address]Dr. Erica Abarca MCH (RBC) [Entitic mass] 20.8 pg Critically low 25.9-34.0 [facility] Comment on above: Performed By: #### C BC ####[facility] Kqsycfbipr833972 [address] [place], [place] [address]Dr. Erica Abarca MCHC (RBC) [Mass/Vol] 28.0 g/dL Critically low 29.9-35.2 [facility] Comment on above: Performed By: #### C BC ####[facility] Mvjpxwtjbn010872 [address] [place], [place] [address]Dr. Erica Abarca MCV (RBC) [Entitic vol] 74.1 fL Critically low 80.0-94.0 [facility] Comment on above: Performed By: #### C BC ####[facility] Rwusxqriub3311[address] [place], [place] [address]Dr. Erica Abarca MONO # 0.4 103/ul Normal 0.3-0.8 [facility] Comment on above: Performed By: #### C BC ####[facility] Ftfsehosvz144872 [address] [place], [place] [address]Dr. Erica Abarca Monocytes/100 WBC (Bld) 7.1 % Normal 1.7-12.0 [facility] Comment on above: Performed By: #### C BC ####[facility] Khhslpmoom0613[address] [place], [place] [address]DrCandi Abarca NEUT # 4.5 103/ul Normal 1.4-6.5 [facility] Comment on above: Performed By: #### C BC ####[facility] Kzpthuibdi317072 [address] [place], [place] [address]Dr. Erica Abarca Neutrophils/100 WBC (Bld) 76.6 % Critically high 43.0-75.0 [facility] Comment on above: Performed By: #### C BC ####[facility] Jxyxsihedi8760 [place] [address]Dr. Erica Abarca Platelet mean volume (Bld) [Entitic vol] 8.4 fL Critically low 9.5-13.5 [facility] Comment on above: Performed By: #### C BC ####[facility] Yzimhqrnac[address]69 [place] [address]Dr. Erica Abarca PLT 268 103/ul Normal 150-450 [facility] Comment on above: Performed By: #### C BC ####[facility] Dlkbhvfyhl0420[address] [place], [place] [address]Dr. Erica Abarca RBC 3.71 106/ul Critically low 4.70-6.10 [facility] Comment on above: Performed By: #### C BC ####[facility] Nftyvrgzwi6432[address] [place], [place] [address]Dr. Erica Abarca WBC 5.9 103/ul Normal 4.0-11.0 [facility] Comment on above: Performed By: #### C BC ####[facility] Thdkiffebr7590[address] [place], [place] [address]Dr. Erica Abarca POINT OF CARE GLUCOSEon 07-27 Glucose [Mass/Vol] 175 mg/dL Critically high 74-106 [facility] Comment on above: Performed By: #### P OCGLUC ####[facility] Ngolwurnca617[address] [place], [place] [address]Dr. Erica Abarca Glucose [Mass/Vol] 475 mg/dL Critically high 74-106 [facility] Comment on above: Performed By: #### P OCGLUC ####[facility] Einwifejwo637[address] [place], [place] [address]Dr. Erica Abarca Glucose [Mass/Vol] 171 mg/dL Critically high 74-106 [facility] Comment on above: Performed By: #### P OCGLUC ####[facility] Sahjeourxq8045[address] [place], [place] [address]Dr. Erica Abarca PROF 14(COMP METB)on 023 Albumin [Mass/Vol] 2.3 g/dL Critically low 3.4-5.0 [facility] Comment on above: Performed By: #### B FURNITURE DUSTER, CMP ####[facility] L[address]ouzihjy[address] [place] [id number]. Erica Abarca Albumin/Globulin [Mass ratio] 0.6 {ratio} Normal [facility] Comment on above: Performed By: #### B FURNITURE DUSTER, CMP ####[facility] Cmvsnhaiwf4804 [place] [address]Dr. Erica Abarca ALP [Catalytic activity/Vol] 70 U/L Normal 46-116 [facility] Comment on above: Performed By: #### B FURNITURE DUSTER, CMP ####[facility] Rgduhprpsg9919 [place] [address]Dr. Erica Abarca ALT [Catalytic activity/Vol] 8 U/L Critically low 16-63 [facility] Comment on above: Performed By: #### B FURNITURE DUSTER, CMP ####[facility] Vhmuquvmgg4302 [place] [address]Dr. Erica Abarca Anion gap [Moles/Vol] 12.0 mmol/L Normal [facility] Comment on above: Performed By: #### B FURNITURE DUSTER, CMP ####[facility] Pbshrlftfy0668 [place] [address]Dr. Erica Abarca AST [Catalytic activity/Vol] 13 U/L Critically low 15-37 [facility] Comment on above: Performed By: #### B FURNITURE DUSTER, CMP ####[facility] Bpysufiney0994 [place] [address]Dr. Erica Abarca Bilirubin [Mass/Vol] 1.0 mg/dL Normal 0.2-1.0 [facility] Comment on above: Performed By: #### B FURNITURE DUSTER, CMP ####[facility] Lcpxeotqij9365 [place] [address]Dr. Erica Abarca Calcium [Mass/Vol] 8.0 mg/dL Critically low 8.5-10.1 [facility] Comment on above: Performed By: #### B FURNITURE DUSTER, CMP ####[facility] Zvohnvmoef9240 [place] [address]Dr. Erica Abarca Chloride [Moles/Vol] 104 mmol/L Normal 98-107 [facility] Comment on above: Performed By: #### B FURNITURE DUSTER, CMP ####[facility] Yrlhxmsqym7974 [place] [address]Dr. Erica Abarca CO2 [Moles/Vol] 26.8 mmol/L Normal 21.0-32.0 [facility] Comment on above: Performed By: #### B FURNITURE DUSTER, CMP ####[facility] Zizihetaef247272 [address] [place], [place] [address]Dr. Erica Abarca Creatinine [Mass/Vol] 1.49 mg/dL Critically high 0.70-1.30 [facility] Comment on above: Performed By: #### B FURNITURE DUSTER, CMP ####[facility] Inrfzzlpny010372 [address] [place], [place] [address]Dr. Erica Tevin EGFR-AF AUSTRIAN 59 mL/min/1.73m2 Critically low >=60 [facility] Comment on above: Performed By: #### B FURNITURE DUSTER, CMP ####[facility] Gysvhpkowu215172 [address] [place], [place] [address]Dr. Erica Abarca EGFR-NON AF AUSTRIAN 48 mL/min/1.73m2 Critically low >=60 [facility] Comment on above: Performed By: #### B FURNITURE DUSTER, CMP ####[facility] Vusbrlivfr6927[address] [place], [place] [address]Dr. Erica Abarca Globulin (S) [Mass/Vol] 4.0 g/dL Normal [facility] Comment on above: Performed By: #### B FURNITURE DUSTER, CMP ####[facility] Rlqrviavmf318272 [address] [place], [place] [address]Dr. Erica Abarca Glucose [Mass/Vol] 150 mg/dL Critically high 74-[address] [facility] Comment on above: Performed By: #### B FURNITURE DUSTER, CMP ####[facility] Mzwloiguuu829[address] [place], [place] [address]Dr. Erica Abarca Potassium [Moles/Vol] 3.8 mmol/L Normal 3.5-5.1 [facility] Comment on above: Performed By: #### B FURNITURE DUSTER, CMP ####[facility] Wfggmrawrt1667 [place] [address]Dr. Shiraemilia Abarca Protein [Mass/Vol] 6.3 g/dL Critically low 6.4-8.2 [facility] Comment on above: Performed By: #### B FURNITURE DUSTER, CMP ####[facility] Sxikccqsje4329[address] [place], [place] [address]Dr. Erica Abarca Sodium [Moles/Vol] 139 mmol/L Normal 136-145 [facility] Comment on above: Performed By: #### B FURNITURE DUSTER, CMP ####[facility] Mvytminccs429[address] [place], [place] [address]Dr. Erica Abarca Urea nitrogen [Mass/Vol] 17.0 mg/dL Normal 7.0-18.0 [facility] Comment on above: Performed By: #### B FURNITURE DUSTER, CMP ####[facility] Fsndeogthl5875[address] [place], [place] [address]Dr. Erica Abarca Urea nitrogen/Creatinine [Mass ratio] 11.4 mg/mg Normal [facility] Comment on above: Performed By: #### B FURNITURE DUSTER, CMP ####[facility] Xygibjpzaj376172 [address] [place], [place] [address]Dr. Erica Abarca VANCOMYCIN TROUGHon 08-12-19 23 VANCOMYCIN TROUGH 18.5 ug/ml Normal 5.0-20.0 [facility] Comment on above: Performed By: #### V ANCT ####[facility] Mkgpkgekqi3669[address] [place], [place] [address]Dr. Erica Abarca BLOOD CULTURE ID PANELon A. baumannii Not detected Normal NOT DETECTED [facility] Comment on above: Performed By: #### B CID2 ####[facility] Gbtamwvclj6050[address] [place], [place] [address]Dr. Erica Abarca Bacteriodes fragilis Not detected Normal NOT DETECTED [facility] Comment on above: Performed By: #### B CID2 ####[facility] Dlyhfhrpmv3217[address] [place], [place] [address]Dr. Erica Abarca BCID CONTROLS PASSED Normal [facility] Comment on above: Performed By: #### B CID2 ####[facility] Aoaesccybj2970 [place] [id number]. Erica Abarca BCIDBTHD BLOOD CULTURE BOTTLE INFORMATION Normal [facility] Comment on above: Performed By: #### B CID2 ####[facility] Skftbglirr7181 [place] [id number]. Yiemilia Abarca BCIDHD1 ANTIMICROBIAL RESISTANCE GENES [facility] Comment on above: Performed By: #### B CID2 ####[facility] Elgqkdwqrj7165 [place] [address]Dr. Yiemilia Abarca BCIDHD2 SEE BELOW [facility] Comment on above: Result Comment: Note : Antimicrobial resitance can occur via multiple mechanisms. A Not Detected result for the AvesthagenArray antomicrobial resistance gene assays does not indicate antimicrobial susceptibility. Subculturing is required for species identification and susceptibility testing of isolates. Performed By: #### B CID2 ####[facility] Quggsrjphf974[address] [place], [place] [address]Dr. Yiemilia Abarca BCIDHD3 Positive [facility] Comment on above: Performed By: #### B CID2 ####[facility] Mipkgtldof7649[address] [place], [place] [address]Dr. Yiemilia Abarca BCIDHD4 Negative [facility] Comment on above: Performed By: #### B CID2 ####[facility] Dphjnhwshp8526 [place] [address]Dr. Yiemilia Abarca BCIDHD5 YEAST [facility] Comment on above: Performed By: #### B CID2 ####[facility] Xhlzyrjcsd4410 [place] [id number]. Yilan Abarca Bottle Set: Set 1 [facility] Comment on above: Performed By: #### B CID2 ####[facility] Aovygzygvb967[address] [place], [place] [address]Dr. Yilan Abarca Bottle: Anaerobic [facility] Comment on above: Performed By: #### B CID2 ####[facility] Uiidyechgz1088[address] [place], [place] [address]Dr. Yilan Abarca C. neoformans/gattii Not detected Normal NOT DETECTED [facility] Comment on above: Performed By: #### B CID2 ####[facility] Gjwgskvatj4376 [place] [address]Dr. Yiemilia Abarca Jocy albicans Not detected Normal NOT DETECTED [facility] Comment on above: Performed By: #### B CID2 ####[facility] Bciibvzmme4484 [place] [address]Dr. Yiemilia Abarca Jocy auris Not detected Normal NOT DETECTED [facility] Comment on above: Performed By: #### B CID2 ####[facility] Bzrmrfvniu1724[address] [place], [place] [address]Dr. Yiemilia Abarca Jocy glabrata Not detected Normal NOT DETECTED [facility] Comment on above: Performed By: #### B CID2 ####[facility] Oegrafhtem386[address] [place], [place] [address]Dr. Yiemliia Abarca Jocy Krusei Not detected Normal NOT DETECTED [facility] Comment on above: Performed By: #### B CID2 ####[facility] Euygkovclt3435[address] [place], [place] [address]Dr. Yiemilia Abarca Jocy Parapsilosis Not detected Normal NOT DETECTED [facility] Comment on above: Performed By: #### B CID2 ####[facility] Igdoabfmat8511[address] [place], [place] [address]Dr. Yiemilia Abarca Jocy Tropicalis Not detected Normal NOT DETECTED [facility] Comment on above: Performed By: #### B CID2 ####[facility] Vlyioygewy9465[address] [place], [place] [address]Dr. Erica Abarca CTX-M Resistant Gene Not Applicable Normal NOT DETECTE D [facility] Comment on above: Performed By: #### B CID2 ####[facility] Xhzyhrppfp3359[address] [place], [place] [address]Dr. Yiemilia Abarca E. Cloacae complex Not detected Normal NOT DETECTED [facility] Comment on above: Performed By: #### B CID2 ####[facility] Rfwotdzjav3760[address] [place], [place] [address]Dr. Yiemilia Abarca E. faecalis Not detected Normal NOT DETECTED [facility] Comment on above: Performed By: #### B CID2 ####[facility] Mvlokvbick6308 [place] [address]Dr. Erica Abarca E. faecium Not detected Normal NOT DETECTED [facility] Comment on above: Performed By: #### B CID2 ####[facility] Rwyfpwippt9282 [place] [address]Dr. Erica Abarca Enterobacteriaceae Not detected Normal NOT DETECTED [facility] Comment on above: Performed By: #### B CID2 ####[facility] Msayjxviow909[address] [place], [place] [address]Dr. Erica Abarca Escherichia coli Not detected Normal NOT DETECTED [facility] Comment on above: Performed By: #### B CID2 ####[facility] Alxsfjixpi850[address] [place], [place] [address]Dr. Erica Abarca H. influenzae Not detected Normal NOT DETECTED [facility] Comment on above: Performed By: #### B CID2 ####[facility] Famnbgjfcp7722[address] [place], [place] [address]Dr. Erica Abarca IMP Resistant Gene Not Applicable Normal NOT DETECTED [facility] Comment on above: Performed By: #### B CID2 ####[facility] Omemnxhecm720[address] [place], [place] [address]Dr. Erica Abarca K. oxytoca Not detected Normal NOT DETECTED [facility] Comment on above: Performed By: #### B CID2 ####[facility] Kdbkbvtuqz825[address] [place], [place] [address]Dr. Erica Abarca K. pneumoniae Not detected Normal NOT DETECTED The [facility] Comment on above: Performed By: #### B CID2 ####[facility] Wdppxghzab501[address] [place], [place] [address]Dr. Shiralan Abarca Klebsiella aerogenes Not detected Normal NOT DETECTED [facility] Comment on above: Performed By: #### B CID2 ####[facility] Bapbgurztw467[address] [place], [place] [address]Dr. Erica Abarca KPC Resistant Gene Not detected Normal NOT DETECTED [facility] Comment on above: Performed By: #### B CID2 ####[facility] Qugbndstox[address] [place] [address]Dr. Erica Abarca List. monocytogenes Not detected Normal NOT DETECTED T [facility] Comment on above: Performed By: #### B CID2 ####[facility] Lhanhhwdfh708[address] [place], [place] [address]Dr. Erica Tevin Mcr-1 Resistant Gene Not Applicable Normal NOT DETECTE D [facility] Comment on above: Performed By: #### B CID2 ####[facility] Zpravgoapq9764[address] [place], [place] [address]Dr. Erica Abarca mecA/C Not Applicable Normal NOT DETECTED [facility] Comment on above: Performed By: #### B CID2 ####[facility] Iqpvnbgimz447[address] [place], [place] [address]Dr. Erica Tevin mecA/C MREJ Not Applicable Normal NOT DETECTED [facility] Comment on above: Performed By: #### B CID2 ####[facility] Ldqjvmgmla0124[address] [place], [place] [address]Dr. Erica Tevin N. meningitidis Not detected Normal NOT DETECTED The [facility] Comment on above: Performed By: #### B CID2 ####[facility] Yeggbvuvjj788[address] [place], [place] [address]Dr. Shiraemilia Abarca NDM Resistant Gene Not Applicable Normal NOT DETECTED [facility] Comment on above: Performed By: #### B CID2 ####[facility] Tgymsenbob398672 [address] [place], [place] [address]Dr. Shiraemilia Tevin Oxa-48-like Not Applicable Normal NOT DETECTED [facility] Comment on above: Performed By: #### B CID2 ####[facility] Edokfbisfd255[address] [place], [place] [address]Dr. Erica Abarca Proteus Not detected Normal NOT DETECTED The [facility] Comment on above: Performed By: #### B CID2 ####[facility] Aaleafqlup208372 [address] [place], [place] [address]Dr. Erica Abarca Pseud. aeruginosa Not detected Normal NOT DETECTED [facility] Comment on above: Performed By: #### B CID2 ####[facility] Qrbffegyov4537[address] [place], [place] [address]Dr. Erica Abarca S. maltophilia Not detected Normal NOT DETECTED [facility] Comment on above: Performed By: #### B CID2 ####[facility] Rzkckrazft4880[address] [place], [place] [address]Dr. Erica Abarca Salmonella Not detected Normal NOT DETECTED [facility] Comment on above: Performed By: #### B CID2 ####[facility] Ounealcoli1427[address] [place], [place] [address]Dr. Erica Abarca Seratia marcescens Not detected Normal NOT DETECTED [facility] Comment on above: Performed By: #### B CID2 ####[facility] Cwlfapfgah6350[address] [place], [place] [address]Dr. Erica Abarca Site: l ac Normal [facility] Comment on above: Performed By: #### B CID2 ####[facility] Jwfwzfgypf117[address] [place], [place] [address]Dr. Erica Abarca Staph. aureus Detected Critically abnormal NOT DETECTED [facility] Comment on above: Performed By: #### B CID2 ####[facility] Imxvvrvlfj770272 [address] [place], [place] [address]Dr. Erica Abarca Staph. epidermidis Not detected Normal NOT DETECTED [facility] Comment on above: Performed By: #### B CID2 ####[facility] Enoswjdaax7044[address] [place], [place] [address]Dr. Erica Abarca Staph. lugdunensis Not detected Normal NOT DETECTED [facility] Comment on above: Performed By: #### B CID2 ####[facility] Bycirvtjye1149[address] [place], [place] [address]Dr. Erica Abarca Staphylococcus Detected Critically abnormal NOT DETECTED [facility] Comment on above: Performed By: #### B CID2 ####[facility] Dfxktdomqz4724[address] [place], [place] [address]Dr. Erica Abarca Strep. agalactiae Not detected Normal NOT DETECTED [facility] Comment on above: Performed By: #### B CID2 ####[facility] Gqeixzjghe7904[address] [place], [place] [address]Dr. Erica Abarca Strep. pneumoniae Not detected Normal NOT DETECTED [facility] Comment on above: Performed By: #### B CID2 ####[facility] Qzngqnekpq2505[address] [place], [place] [address]Dr. Erica Abarca Strep. pyogenes Not detected Normal NOT DETECTED [facility] Comment on above: Performed By: #### B CID2 ####[facility] Ksqdrgebtv0111[address] [place], [place] [address]Dr. Erica Abarca Streptococcus Not detected Normal NOT DETECTED [facility] Comment on above: Performed By: #### B CID2 ####[facility] Hfrqzfrnyc2814[address] [place], [place] [address]Dr. Erica Abarca Raghavendra/B Resist. Gene Not detected Normal NOT DETECTED [facility] Comment on above: Performed By: #### B CID2 ####[facility] Lfwmsnbiyy1426[address] [place], [place] [address]Dr. Erica Abarca VIM Resistant Gene Not Applicable Normal NOT DETECTED [facility] Comment on above: Performed By: #### B CID2 ####[facility] Pktiokyobn0650[address] [place], [place] [address]Dr. Erica Tevin BNPon 08-10-2022 Natriuretic peptide B (Bld) [Mass/Vol] 3803.0 pg/mL Critically high <=900.0 [facility] Comment on above: Performed By: #### B FURNITURE DUSTER ####[facility] Wsxqvleptl0459[address] [place], [place] [address]Dr. Shiraemilia Tevin CBC AUTO DIFFon 08-10-2022 Basophils/100 WBC (Bld) 0.7 % Normal 0.2-2.0 [facility] Comment on above: Performed By: #### C BC ####[facility] Izkwaklboj4529[address] [place], [place] [address]Dr. Erica Abarca EO # 0.1 103/ul Normal 0.0-0.7 [facility] Comment on above: Performed By: #### C BC ####[facility] Hhgwgbcuml7309[address] [place], [place] [address]Dr. Erica Abarca Eosinophils/100 WBC (Bld) 2.3 % Normal 0.9-7.0 [facility] Comment on above: Performed By: #### C BC ####[facility] Ydrbpvapll4759 [place] [address]Dr. Shiraemilia Tevin Erythrocyte distribution width (RBC) [Ratio] 19.3 % Critically high 11.0-15.0 [facility] Comment on above: Performed By: #### C BC ####[facility] Qpkwmjvkeo3642 [place] [address]Dr. Erica Abarca Hematocrit (Bld) [Volume fraction] 25.0 % Critically low 42.0-54.0 [facility] Comment on above: Performed By: #### C BC ####[facility] Wmtblsrxpw3850[address] [place], [place] [address]Dr. Erica Abarca Hemoglobin (Bld) [Mass/Vol] 6.7 g/dL Critically low 14.0-18.0 [facility] Comment on above: Performed By: #### C BC ####[facility] Vkmipnsenc859[address] [place], [place] [address]Dr. Erica Abarca LYMPH # 0.6 103/ul Critically low 1.2-3.8 [facility] Comment on above: Performed By: #### C BC ####[facility] Cvksavlalz6839[address] [place], [place] [address]DrCandi Abarca Lymphocytes/100 WBC (Bld) 9.3 % Critically low 20.5-60.0 [facility] Comment on above: Performed By: #### C BC ####[facility] Rdvfrjqsyk126572 [address] [place], [place] [address]Dr. Erica Abarca MCH (RBC) [Entitic mass] 19.8 pg Critically low 25.9-34.0 [facility] Comment on above: Performed By: #### C BC ####[facility] Vrxbidethx828272 [address] [place], [place] [address]Dr. Erica Abarca MCHC (RBC) [Mass/Vol] 26.8 g/dL Critically low 29.9-35.2 [facility] Comment on above: Performed By: #### C BC ####[facility] Ntxxvatwuh4[address] [place], [place] [address]Dr. Erica Abarca MCV (RBC) [Entitic vol] 74.0 fL Critically low 80.0-94.0 [facility] Comment on above: Performed By: #### C BC ####[facility] Iyeghsalzt[address] [place] [address]Dr. Erica Abarca MONO # 0.5 103/ul Normal 0.3-0.8 [facility] Comment on above: Performed By: #### C BC ####[facility] Fhkmtpohkh43[address] [place] [address]Dr. Erica Abarca Monocytes/100 WBC (Bld) 8.2 % Normal 1.7-12.0 [facility] Comment on above: Performed By: #### C BC ####[facility] Kmkacrsoua59[address] [place] [address]Dr. Erica Abarca NEUT # 4.7 103/ul Normal 1.4-6.5 [facility] Comment on above: Performed By: #### C BC ####[facility] Ftejozbhdj9193 [place] [address]Dr. Erica Tevin Neutrophils/100 WBC (Bld) 79.0 % Critically high 43.0-75.0 [facility] Comment on above: Performed By: #### C BC ####[facility] Yrqebzmvrd7258 [place] [address]Dr. Erica Tevin Platelet mean volume (Bld) [Entitic vol] 8.7 fL Critically low 9.5-13.5 [facility] Comment on above: Performed By: #### C BC ####[facility] Iwlrdydfws27[address] [place] [address]Dr. Erica Tevin PLT 254 103/ul Normal 150-450 [facility] Comment on above: Performed By: #### C BC ####[facility] Jurndvafub79[address] [place], [place] [address]Dr. Erica Tevin RBC 3.38 106/ul Critically low 4.70-6.10 [facility] Comment on above: Performed By: #### C BC ####[facility] Swqhigpubj2835[address] [place], [place] [address]Dr. Erica Abarca WBC 6.0 103/ul Normal 4.0-11.0 [facility] Comment on above: Performed By: #### C BC ####[facility] Uzzegtxxon[address] [place] [address]Dr. Erica Abarca POINT OF CARE GLUCOSEon 07-27 Glucose [Mass/Vol] 161 mg/dL Critically high 74-106 [facility] Comment on above: Performed By: #### P OCGLUC ####[facility] Rxdapajgab[address] [place] [address]Dr. Erica Abarca Glucose [Mass/Vol] 113 mg/dL Critically high 74-106 [facility] Comment on above: Performed By: #### P OCGLUC ####[facility] Tvjmsqseou86[address] [place] [address]Dr. Erica Abarca Glucose [Mass/Vol] 91 mg/dL Normal 74-106 [facility] Comment on above: Performed By: #### P OCGLUC ####[facility] Ddflfumwvm7253 [place] [address]Dr. Erica Abarca Glucose [Mass/Vol] 109 mg/dL Critically high 74-106 [facility] Comment on above: Performed By: #### P OCGLUC ####[facility] Yramigtqiy[address] [place] [address]Dr. Erica Abarca PROF 14(COMP METB)on 023 Albumin [Mass/Vol] 2.3 g/dL Critically low 3.4-5.0 [facility] Comment on above: Performed By: #### C MP ####[facility] H[address]ztgmnhn[address] [place] [address]Dr. Erica Abarca Albumin/Globulin [Mass ratio] 0.6 {ratio} Normal [facility] Comment on above: Performed By: #### C MP ####[facility] Zfnmdfrhfy3538 [place] [address]Dr. Erica Abarca ALP [Catalytic activity/Vol] 80 U/L Normal 46-116 [facility] Comment on above: Performed By: #### C MP ####[facility] Ftaisnbnrh9[address] [place] [id number]. Erica Abarca ALT [Catalytic activity/Vol] 10 U/L Critically low 16-63 [facility] Comment on above: Performed By: #### C MP ####[facility] Abokwwjhcc8[address] [place] [address]Dr. Erica Abarca Anion gap [Moles/Vol] 10.2 mmol/L Normal [facility] Comment on above: Performed By: #### C MP ####[facility] Hymmdlcmdn7[address] [place] [address]Dr. Erica Abarca AST [Catalytic activity/Vol] 21 U/L Normal 15-37 [facility] Comment on above: Performed By: #### C MP ####[facility] Iaovveadly7720[address] [place], [place] [address]Dr. Erica Abarca Bilirubin [Mass/Vol] 0.9 mg/dL Normal 0.2-1.0 [facility] Comment on above: Performed By: #### C MP ####[facility] Lktauzkjnh[address] [place], [place] [address]Dr. Erica Abarca Calcium [Mass/Vol] 7.7 mg/dL Critically low 8.5-10.1 [facility] Comment on above: Performed By: #### C MP ####[facility] Gbtvpnowkm1229[address] [place], [place] [address]Dr. Erica Abarca Chloride [Moles/Vol] 101 mmol/L Normal 98-107 [facility] Comment on above: Performed By: #### C MP ####[facility] Atoqbuhcjc709[address] [place], [place] [address]Dr. Erica Abarca CO2 [Moles/Vol] 26.5 mmol/L Normal 21.0-32.0 [facility] Comment on above: Performed By: #### C MP ####[facility] Ykcjpbbkrm6611[address] [place], [place] [address]Dr. Erica Abarca Creatinine [Mass/Vol] 1.46 mg/dL Critically high 0.70-1.30 [facility] Comment on above: Performed By: #### C MP ####[facility] Rprvknqdup4388 [place] [address]Dr. Erica Abarca EGFR-AF AUSTRIAN 60 mL/min/1.73m2 Normal >=60 [facility] Comment on above: Performed By: #### C MP ####[facility] Jrylkxondr3[address] [place] [address]Dr. Erica Abarca EGFR-NON AF AUSTRIAN 50 mL/min/1.73m2 Critically low >=60 [facility] Comment on above: Performed By: #### C MP ####[facility] Faochjakpp1907 [place] [address]Dr. Erica Abarca Globulin (S) [Mass/Vol] 3.7 g/dL Normal [facility] Comment on above: Performed By: #### C MP ####[facility] Hebvowzoct[address] [place] [address]Dr. Erica Abarca Glucose [Mass/Vol] 111 mg/dL Critically high 74-[address] [facility] Comment on above: Performed By: #### C MP ####[facility] Lcioodvahc6459 [place] [address]Dr. Erica Abarca Potassium [Moles/Vol] 3.7 mmol/L Normal 3.5-5.1 [facility] Comment on above: Performed By: #### C MP ####[facility] Pgpnldmwfy8457 [place] [address]Dr. Erica Abarca Protein [Mass/Vol] 6.0 g/dL Critically low 6.4-8.2 [facility] Comment on above: Performed By: #### C MP ####[facility] Bpyjyidudo56[address] [place] [address]Dr. Erica Abarca Sodium [Moles/Vol] 134 mmol/L Critically low 136-145 [facility] Comment on above: Performed By: #### C MP ####[facility] Fkjxtxhbcl9447 [place] [address]Dr. Erica Abarca Urea nitrogen [Mass/Vol] 16.0 mg/dL Normal 7.0-18.0 [facility] Comment on above: Performed By: #### C MP ####[facility] Dxbtadklzp83[address] [place] [address]Dr. Erica Abarca Urea nitrogen/Creatinine [Mass ratio] 11.0 mg/mg Normal [facility] Comment on above: Performed By: #### C MP ####[facility] Vwqtqgcpmy260[address] [place], [place] [address]Dr. Erica Aabrca TYPE AND SCREENon 08-10-2022 TYPE AND SCREEN Negative Normal [facility] Comment on above: Performed By: #### T NS ####[facility] Lhninendbs6023[address] [place], [place] [address]Dr. Erica Abarca BNPon 08-09-2022 Natriuretic peptide B (Bld) [Mass/Vol] 4889.0 pg/mL Critically high <=900.0 [facility] Comment on above: Performed By: #### C RP, BNP, CMP ####[facility] Ebzfeewdcx280[address] [place], [place] [address]Dr. Erica Abarca CBC AUTO DIFFon 08-09-2022 BASO # 0.0 103/ul Normal 0.0-0.1 [facility] Comment on above: Performed By: #### C BC ####[facility] Odsdcvkjyb960[address] [place], [place] [address]Dr. Erica Abarca Basophils/100 WBC (Bld) 0.3 % Normal 0.2-2.0 [facility] Comment on above: Performed By: #### C BC ####[facility] Garkfaetfo7468[address] [place], [place] [address]Dr. Erica Abarca EO # 0.1 103/ul Normal 0.0-0.7 [facility] Comment on above: Performed By: #### C BC ####[facility] Rutskvlcxv456[address] [place], [place] [address]Dr. Erica Abarca Eosinophils/100 WBC (Bld) 0.9 % Normal 0.9-7.0 [facility] Comment on above: Performed By: #### C BC ####[facility] Tzcjmwiezc8139[address] [place], [place] [address]Dr. Erica Abarca Erythrocyte distribution width (RBC) [Ratio] 19.3 % Critically high 11.0-15.0 [facility] Comment on above: Performed By: #### C BC ####[facility] Htppllelng82[address] [place] [address]DrCandi Abarca Hematocrit (Bld) [Volume fraction] 28.0 % Critically low 42.0-54.0 [facility] Comment on above: Performed By: #### C BC ####[facility] Vqbxagweum8822 [place] [address]DrCandi Abarca Hemoglobin (Bld) [Mass/Vol] 7.7 g/dL Critically low 14.0-18.0 [facility] Comment on above: Performed By: #### C BC ####[facility] Phkrsvovco70[address] [place], [place] [address]DrCandi Abarca IG # 0.06 10e3/ul Critically high 0.00-0.03 [facility] Comment on above: Performed By: #### C BC ####[facility] Hknocvjoao185[address] [place], [place] [address]DrCandi Abarca IG % 0.6 % Critically high 0.0-0.5 [facility] Comment on above: Performed By: #### C BC ####[facility] Xcbnwsykyw[address] [place], [place] [address]DrCandi Abarca LYMPH # 0.7 103/ul Critically low 1.2-3.8 [facility] Comment on above: Performed By: #### C BC ####[facility] Vbvnomaeyx6739[address] [place], [place] [address]DrCandi Abarca Lymphocytes/100 WBC (Bld) 7.1 % Critically low 20.5-60.0 [facility] Comment on above: Performed By: #### C BC ####[facility] Zkthkfpjlt264[address] [place], [place] [address]DrCandi Abarca MANUAL DIFF REQ NO Normal [facility] Comment on above: Performed By: #### C BC ####[facility] Mddzhgtcxb9575 [place] [address]DrCandi Abarca MCH (RBC) [Entitic mass] 19.9 pg Critically low 25.9-34.0 [facility] Comment on above: Performed By: #### C BC ####[facility] Vsxfrydpkw3970 [place] [address]Dr. Erica Abarca MCHC (RBC) [Mass/Vol] 27.5 g/dL Critically low 29.9-35.2 [facility] Comment on above: Result Comment: look ed at slide Performed By: #### C BC ####[facility] Ycsbvzkvee4020 [place] [address]DrCandi Abarca MCV (RBC) [Entitic vol] 72.5 fL Critically low 80.0-94.0 [facility] Comment on above: Performed By: #### C BC ####[facility] Ianbhopugj489[address] [place], [place] [address]DrCandi Abarca MONO # 0.8 103/ul Normal 0.3-0.8 [facility] Comment on above: Performed By: #### C BC ####[facility] Jyapikblbi0676 [place] [address]DrCandi Abarca Monocytes/100 WBC (Bld) 8.1 % Normal 1.7-12.0 [facility] Comment on above: Performed By: #### C BC ####[facility] Tcwcljjtse7[address] [place], [place] [address]DrCandi Abarca NEUT # 8.3 103/ul Critically high 1.4-6.5 [facility] Comment on above: Performed By: #### C BC ####[facility] Wsqrvipogw2856 [place] [address]DrCandi Abarca Neutrophils/100 WBC (Bld) 83.0 % Critically high 43.0-75.0 [facility] Comment on above: Performed By: #### C BC ####[facility] Mkvrcvwfbw118[address] [place], [place] [address]DrCandi Abarca Platelet mean volume (Bld) [Entitic vol] 8.4 fL Critically low 9.5-13.5 [facility] Comment on above: Performed By: #### C BC ####[facility] Tzkawnydrg[address] [place], [place] [address]Dr. Erica Abarca PLT 314 103/ul Normal 150-450 [facility] Comment on above: Performed By: #### C BC ####[facility] Vdrpsbekji6512 [place] [id number]. Erica Abarca RBC 3.86 106/ul Critically low 4.70-6.10 [facility] Comment on above: Performed By: #### C BC ####[facility] Vmjttipkfr8748 [place] [address]Dr. Erica Abarca WBC 10.0 103/ul Normal 4.0-11.0 [facility] Comment on above: Performed By: #### C BC ####[facility] Wzobacxvdg0538 [place] [address]Dr. Erica Abarca CRPon 08-09-2022 CRP 25.2 mg/dL Critically high <=1.0 [facility] Comment on above: Performed By: #### C RP, BNP, CMP ####[facility] Eqfdvjkuvr6[address] [place] [id number]. Erica Abarca CT LOWER LEG RT WO CONon CT LOWER LEG RT WO CON Normal [facility] CULTURE BLOODon 08-09-2022 Microscopic examination of blood, culture Culture Observations: Aerobic and Anaerobic bottles positive. Culture Observations: Refer to for susceptibility testing. Isolate 1 Staphylococcus aureus Growth of Normal [facility] Comment on above: Performed By: #### B LDCX2 ####[facility] Mtppenzscd1085 [place] [id number]. Erica Abarca CULTURE URINEon 08-09-2022 CULTURE URINE Culture Observations: LIGHT GROWTH OF MIXED SKIN HOLLY. NO POTENTIAL PATHOGENS SEEN. Normal [facility] Comment on above: Performed By: #### U RCX ####[facility] Uwqztvtgls[address] [place] [id number]. Erica Abarca Covid-19 PCR (CVDTBH)on 07-27 SARS-CoV-2 (COVID-19) RNA REJI+probe Ql (Unsp spec) Not detected Normal NOT DETECTED [facility] Comment on above: Result Comment: When diagnostic testing is negative, the possibility of a false negative should be considered inthe context of a patient's recent exposures and the presence of clinical signs and symptomsconsistent with SARS-CoV-2.This test is not yet approved or cleared by the [place] FDA. When there are no FDA-approved or cleared tests available, and other criteria are met, FDA can make tests available under an emergency access mechanism called an Emergency Use Authorization (EUA). The EUA for this test is supported by the Film Editor of Health and Human Service's declaration that circumstances exist to justify the emergency use of in vitro diagnostics for the detection and/or diagnosis of the virus that causes COVID-19. This EUA will remain in effect for the duration of the COVID-19 declaration justifying emergency of IVDs, unless it is terminated or revoked by the FDA (after which the test may no longer be used). Performed By: #### C VDTBH ####[facility] Zqlctmxatj257[address] [place], [place] [address]Dr. Erica Abarca ECHO LIMITED STUDYon 023 ECHO LIMITED STUDY Normal [facility] LACTATE/LACTIC ACIDon 2022 Lactate [Moles/Vol] 1.5 mmol/L Normal 0.4-2.0 [facility] Comment on above: Performed By: #### L ACT ####[facility] Jbjojhmbmo[address] [place], [place] [address]Dr. Erica Abarca POINT OF CARE GLUCOSEon 07-27 Glucose [Mass/Vol] 105 mg/dL Normal 74-106 [facility] Comment on above: Performed By: #### P OCGLUC ####[facility] Lyehgliyem[address] [place] [address]Dr. Erica [facility] Glucose [Mass/Vol] 93 mg/dL Normal 74-106 [facility] Comment on above: Performed By: #### P OCGLUC ####[facility] Wuazztebjd4932 [place] [address]Dr. [facility] Glucose [Mass/Vol] 110 mg/dL Critically high 74-106 [facility] Comment on above: Performed By: #### P OCGLUC ####[facility] Vxthmzrfpo4732 [place] [address]Dr. Erica Abarca PROF 14(COMP METB)on 023 Albumin [Mass/Vol] 2.8 g/dL Critically low 3.4-5.0 [facility] Comment on above: Performed By: #### C RP, BNP, CMP ####[facility] Baxtxvszol76[address] [place] [address]Dr. Erica Abarca Albumin/Globulin [Mass ratio] 0.6 {ratio} Normal [facility] Comment on above: Performed By: #### C RP, BNP, CMP ####[facility] Mdtuijqkuz[address] [place] [address]Dr. Erica Abarca ALP [Catalytic activity/Vol] 88 U/L Normal 46-116 [facility] Comment on above: Performed By: #### C RP, BNP, CMP ####[facility] Tczjpwvqtd[address] [place], [place] [address]Dr. Erica Abarca ALT [Catalytic activity/Vol] 12 U/L Critically low 16-63 [facility] Comment on above: Performed By: #### C RP, BNP, CMP ####[facility] Hwnwkzekyc[address] [place] [address]Dr. Erica Abarca Anion gap [Moles/Vol] 11.1 mmol/L Normal [facility] Comment on above: Performed By: #### C RP, BNP, CMP ####[facility] Bpwxztvzeq2572 [place] [address]Dr. Erica Abarca AST [Catalytic activity/Vol] 23 U/L Normal 15-37 [facility] Comment on above: Performed By: #### C RP, BNP, CMP ####[facility] Fkppuoecbb2922 [place] [address]Dr. Erica Abarca Bilirubin [Mass/Vol] 1.3 mg/dL Critically high 0.2-1.0 [facility] Comment on above: Performed By: #### C RP, BNP, CMP ####[facility] Lfrunichfq1907 [place] [address]Dr. Erica Abarca Calcium [Mass/Vol] 8.4 mg/dL Critically low 8.5-10.1 [facility] Comment on above: Performed By: #### C RP, BNP, CMP ####[facility] Pqzboenvpl[address] [place], [place] [address]Dr. Erica Abarca Chloride [Moles/Vol] 99 mmol/L Normal 98-107 [facility] Comment on above: Performed By: #### C RP, BNP, CMP ####[facility] Gnyyxmlrsb9[address] [place], [place] [address]Dr. Erica Abarca CO2 [Moles/Vol] 26.9 mmol/L Normal 21.0-32.0 [facility] Comment on above: Performed By: #### C RP, BNP, CMP ####[facility] Aeipadjfix[address] [place], [place] [address]Dr. Erica Abarca Creatinine [Mass/Vol] 1.51 mg/dL Critically high 0.70-1.30 [facility] Comment on above: Performed By: #### C RP, BNP, CMP ####[facility] Qzpbdxjken[address] [place], [place] [address]Dr. Erica Abarca EGFR-AF AUSTRIAN 58 mL/min/1.73m2 Critically low >=60 [facility] Comment on above: Performed By: #### C RP, BNP, CMP ####[facility] Lzrsljmddl206[address] [place], [place] [address]Dr. Erica Abarca EGFR-NON AF AUSTRIAN 48 mL/min/1.73m2 Critically low >=60 [facility] Comment on above: Performed By: #### C RP, BNP, CMP ####[facility] Gejxakmpbh7[address] [place], [place] [address]Dr. Erica Abarca Globulin (S) [Mass/Vol] 4.4 g/dL Normal [facility] Comment on above: Performed By: #### C RP, BNP, CMP ####[facility] Ahmkreladf167[address] [place], [place] [address]Dr. Erica Abarca Glucose [Mass/Vol] 102 mg/dL Normal 74-106 [facility] Comment on above: Performed By: #### C RP, BNP, CMP ####[facility] Mortqlgder2257 [place] [address]Dr. Erica Abarca Potassium [Moles/Vol] 4.0 mmol/L Normal 3.5-5.1 [facility] Comment on above: Performed By: #### C RP, BNP, CMP ####[facility] Xskgiuqdtk1765 [place] [address]Dr. Erica Abarca Protein [Mass/Vol] 7.2 g/dL Normal 6.4-8.2 [facility] Comment on above: Performed By: #### C RP, BNP, CMP ####[facility] Hnekaclrpa0884 [place] [address]Dr. Erica Abarca Sodium [Moles/Vol] 133 mmol/L Critically low 136-145 [facility] Comment on above: Performed By: #### C RP, BNP, CMP ####[facility] Natgdmijdb146[address] [place], [place] [address]Dr. Erica Abarca Urea nitrogen [Mass/Vol] 17.0 mg/dL Normal 7.0-18.0 [facility] Comment on above: Performed By: #### C RP, BNP, CMP ####[facility] Fzpauadiix239[address] [place], [place] [address]Dr. Erica Abarca Urea nitrogen/Creatinine [Mass ratio] 11.3 mg/mg Normal [facility] Comment on above: Performed By: #### C RP, BNP, CMP ####[facility] Wxmxphktmz080[address] [place], [place] [address]Dr. Erica Abacra SED RATE WESTERGRENon 2022 SED RATE 103 mm/hr Critically high <=20 [facility] Comment on above: Performed By: #### S EDR ####[facility] Sdriddsxfq473[address] [place], [place] [address]Dr. Erica Abarca UA RANDOM W/MICROSCOPICon BACTERIA NONE SEEN Normal NONE SEEN [facility] Comment on above: Performed By: #### U AMIC ####[facility] Dsyocfijqs2914 [place] [address]Dr. Erica Abarca Bilirubin Ql (U) Negative Normal NEGATIVE [facility] Comment on above: Performed By: #### U AMIC ####[facility] Oiserznkdy4595 [place] [address]Dr. Shiraemilia Abarca CAST NONE SEEN Normal NONE SEEN [facility] Comment on above: Performed By: #### U AMIC ####[facility] Jlprrqxbdd0159 [place] [address]Dr. Erica Abarca Clarity (U) CLEAR Normal CLEAR [facility] Comment on above: Performed By: #### U AMIC ####[facility] Qtnnzeidjh8244 [place] [address]Dr. Erica Abarca Color (U) YELLOW Normal YELLOW [facility] Comment on above: Performed By: #### U AMIC ####[facility] Foxnlqlofx625[address] [place], [place] [address]Dr. Erica Abarca Crystals LM Nom (Urine sed) NONE SEEN Normal NONE SEEN [facility] Comment on above: Performed By: #### U AMIC ####[facility] Zeqogzlipc7[address] [place], [place] [address]Dr. Erica Abarca Epithelial cells LM Ql (Urine sed) NONE SEEN Normal NONE SEEN /RARE [facility] Comment on above: Performed By: #### U AMIC ####[facility] Pwnitmyikn0917[address] [place], [place] [address]Dr. Erica Abarca Glucose Ql (U) Negative Normal NEGATIVE [facility] Comment on above: Performed By: #### U AMIC ####[facility] Gnzsxmvpog9516 [place] [address]Dr. Erica Abarca Hemoglobin Ql (U) MODERATE Abnormal NEGATIVE [facility] Comment on above: Performed By: #### U AMIC ####[facility] Ykysgdhuuk5[address] [place], [place] [address]Dr. Erica Abarca Ketones Ql (U) Negative Normal NEGATIVE [facility] Comment on above: Performed By: #### U AMIC ####[facility] Rdikvzqjch7206 [place] [address]Dr. Erica Abarca LEUKOCYTES Negative Normal NEGATIVE [facility] Comment on above: Performed By: #### U AMIC ####[facility] Tguouirydj3126 [place] [id number]. Erica Abarca MUCOUS NONE SEEN Normal NONE SEEN [facility] Comment on above: Performed By: #### U AMIC ####[facility] Gzfworonae7174 [place] [address]Dr. Erica Abarca Nitrite Ql (U) Negative Normal NEGATIVE [facility] Comment on above: Performed By: #### U AMIC ####[facility] Cvmfxqtmvx6015 [place] [address]Dr. Erica Abarca pH (U) 5.5 [pH] Normal 5-9 [facility] Comment on above: Performed By: #### U AMIC ####[facility] Sajaoegtiu54[address] [place], [place] [address]Dr. Erica Abarca RBC 0-2 Normal 0-2 [facility] Comment on above: Performed By: #### U AMIC ####[facility] Lvspnmboej525[address] [place], [place] [address]Dr. Erica Abarca SPEC GRAVITY 1.015 Normal 1.005-<=1.025 [facility] Comment on above: Performed By: #### U AMIC ####[facility] Rceyraebtc[address] [place], [place] [address]Dr. Erica Abarca UA PROTEIN 30 mg/dl Abnormal NEGATIVE/ TRACE [facility] Comment on above: Performed By: #### U AMIC ####[facility] Oioacoqiwx729[address] [place], [place] [address]Dr. Erica Abarca Urobilinogen Qn (U) 1.0 {Bony'U}/dL Normal 0.2 - 1. 0 [facility] Comment on above: Performed By: #### U AMIC ####[facility] Fqtnlvpniw777[address] [place], [place] [address]Dr. Erica Abarca WBC NONE SEEN Normal NONE SEEN [facility] Comment on above: Performed By: #### U AMIC ####[facility] Lsolfxbhgo2560 [place] [address]Dr. Erica Abarca US KAYLIN DOP LEG BILon 023 US KAYLIN DOP LEG BRYCE Normal [facility] XR ANKLE RT MIN 3 VIEWSon XR ANKLE RT MIN 3 VIEWS Normal [facility] XR ANKLE RT MIN 3 VIEWSon XR ANKLE RT MIN 3 VIEWS Normal [facility] ACID FAST SMEAR AND CXon Acid Fast Culture Negative Normal [facility] Comment on above: Result Comment: No a zenaida fast bacilli isolated after 6 weeks. Performed By: #### A FB ####[facility] Iuvqefvyul6312 [place] [id number]. Erica Abarca Acid Fast Smear Negative Normal [facility] Comment on above: Performed By: #### A FB ####[facility] Njemjvwond0743 [place] [address]Dr. Erica Abarca [employer] Specimen Processing Tissue Grinding Normal [facility] Comment on above: Performed By: #### A FB ####[facility] Oocnnqdvbm[address] [place], [place] [id number] Abarca XR TIB_FIB RT 2Von 3 XR TIB_FIB RT 2V Normal [facility] FUNGAL CULTUREon 06-22-2022 Fungus (Mycology) Culture Final report Normal [facility] Comment on above: Performed By: #### C XFUN ####[facility] Hnjzzidibr7546 [place] [id number]. Erica Abarca Fungus Stain Final report Normal [facility] Comment on above: Performed By: #### C XFUN ####[facility] Onakqvhxcn3869 [place] [address]Dr. Erica Abarca Result 1 Comment Normal [facility] Comment on above: Result Comment: ANGIE/ Calcofluor preparation: no fungus observed. Performed By: #### C XFUN ####[facility] Ftiekhuifm2237 [place] [id number] Abarca Result Comment: No y east or mold isolated after 4 weeks. PRBC LEUKOREDUCEDon 05-28-20 22 PRBC LEUKOREDUCED Normal [facility] Comment on above: Performed By: #### P RBC ####[facility] Gjpuhpspgr[address] [place], [place] [address]Dr. Erica Abarca CBC AUTO DIFFon 05-27-2022 BASO # 0.0 103/ul Normal 0.0-0.1 [facility] Comment on above: Performed By: #### C BC ####[facility] Dfnxeeircg9504 [place] [address]Dr. Erica Abarca Basophils/100 WBC (Bld) 0.7 % Normal 0.2-2.0 [facility] Comment on above: Performed By: #### C BC ####[facility] Mfvvpweeol4537 [place] [address]Dr. Erica Abarca EO # 0.2 103/ul Normal 0.0-0.7 [facility] Comment on above: Performed By: #### C BC ####[facility] Sbteioesnj1575 [place] [address]Dr. Erica Abarca Eosinophils/100 WBC (Bld) 4.3 % Normal 0.9-7.0 [facility] Comment on above: Performed By: #### C BC ####[facility] Qemmnywhuv0642 [place] [address]Dr. Erica Abarca Erythrocyte distribution width (RBC) [Ratio] 17.6 % Critically high 11.0-15.0 [facility] Comment on above: Performed By: #### C BC ####[facility] Bzaoahzhnj0643 [place] [address]Dr. Erica Abarca Hematocrit (Bld) [Volume fraction] 27.6 % Critically low 42.0-54.0 [facility] Comment on above: Performed By: #### C BC ####[facility] Hdyzqkqvpx3287 [place] [address]Dr. Erica Abarca Hemoglobin (Bld) [Mass/Vol] 8.0 g/dL Critically low 14.0-18.0 [facility] Comment on above: Performed By: #### C BC ####[facility] Jrlstundpf4893 [place] [address]Dr. Erica Abarca IG # 0.05 10e3/ul Critically high 0.00-0.03 [facility] Comment on above: Performed By: #### C BC ####[facility] Eccbrxrwaa0847 [place] [id number]. Erica Abarca IG % 0.9 % Critically high 0.0-0.5 [facility] Comment on above: Performed By: #### C BC ####[facility] Vxxoijwxyq1910 [place] [address]Dr. Erica Abarca LYMPH # 0.8 103/ul Critically low 1.2-3.8 [facility] Comment on above: Performed By: #### C BC ####[facility] Wnukulelbc2576 [place] [address]Dr. Erica Abarca Lymphocytes/100 WBC (Bld) 14.2 % Critically low 20.5-60.0 [facility] Comment on above: Performed By: #### C BC ####[facility] Czuyqsvbex0509 [place] [address]Dr. Erica Abarca MANUAL DIFF REQ NO Normal [facility] Comment on above: Performed By: #### C BC ####[facility] Efwsbebuwc7947 [place] [phone]. Erica Abarca MCH (RBC) [Entitic mass] 23.2 pg Critically low 25.9-34.0 [facility] Comment on above: Performed By: #### C BC ####[facility] Ulvbdeqgnx9004 [place] [address]Dr. Erica Abarca MCHC (RBC) [Mass/Vol] 29.0 g/dL Critically low 29.9-35.2 [facility] Comment on above: Performed By: #### C BC ####[facility] Wnelfsqnnl0282 [place] [address]Dr. Erica Abarca MCV (RBC) [Entitic vol] 80.0 fL Normal 80.0-94.0 [facility] Comment on above: Performed By: #### C BC ####[facility] Mvzycazgqh6178 [place] [address]Dr. Shiraemilia Abarca MONO # 0.4 103/ul Normal 0.3-0.8 [facility] Comment on above: Performed By: #### C BC ####[facility] Qhfinzuafq6668 [place] [address]Dr. Erica Abarca Monocytes/100 WBC (Bld) 7.1 % Normal 1.7-12.0 [facility] Comment on above: Performed By: #### C BC ####[facility] Sdizanqnlo6201 [place] [address]Dr. Erica Abarca NEUT # 3.9 103/ul Normal 1.4-6.5 [facility] Comment on above: Performed By: #### C BC ####[facility] Nwacydclbr7652 [place] [address]Dr. Erica Abarca Neutrophils/100 WBC (Bld) 72.8 % Normal 43.0-75.0 [facility] Comment on above: Performed By: #### C BC ####[facility] Twuqmlskbk4277 [place] [address]Dr. Erica Abarca Platelet mean volume (Bld) [Entitic vol] 8.2 fL Critically low 9.5-13.5 [facility] Comment on above: Performed By: #### C BC ####[facility] Vxyidjuteq9930 [place] [address]Dr. Erica Abarca PLT 249 103/ul Normal 150-450 [facility] Comment on above: Performed By: #### C BC ####[facility] Nemylscyba3301 [place] [address]Dr. Erica Abarca RBC 3.45 106/ul Critically low 4.70-6.10 [facility] Comment on above: Performed By: #### C BC ####[facility] Qqrocunaie8455 [place] [address]Dr. Erica Abarca WBC 5.4 103/ul Normal 4.0-11.0 [facility] Comment on above: Performed By: #### C BC ####[facility] Evzxeqwokf8022 [place] [id number]. Erica Abarca POINT OF CARE GLUCOSEon 12-3 0-2021 Glucose [Mass/Vol] 227 mg/dL Critically high 74-106 [facility] Comment on above: Performed By: #### P OCGLUC ####[facility] Jxobzalldm8006 [place] [id number]. Erica Abarca Glucose [Mass/Vol] 233 mg/dL Critically high 74-106 [facility] Comment on above: Performed By: #### P OCGLUC ####[facility] Hhietgkyiz0001 [place] [address]Dr. Erica Abarca PROF CHEM 8 (BAS METB)on Anion gap [Moles/Vol] 10.4 mmol/L Normal [facility] Comment on above: Performed By: #### B MP ####[facility] Teohsgfocl7323 [place] [address]Dr. Erica Abarca Calcium [Mass/Vol] 9.0 mg/dL Normal 8.5-10.1 [facility] Comment on above: Performed By: #### B MP ####[facility] Sbjxscbfgh88[address] [place], [place] [address]Dr. Erica Abarca Chloride [Moles/Vol] 97 mmol/L Critically low 98-107 [facility] Comment on above: Performed By: #### B MP ####[facility] Gnodlphaxu365[address] [place], [place] [address]Dr. Erica Tevin CO2 [Moles/Vol] 30.4 mmol/L Normal 21.0-32.0 [facility] Comment on above: Performed By: #### B MP ####[facility] Hpcflzzctj6256 [place] [address]Dr. Erica Tevin Creatinine [Mass/Vol] 1.22 mg/dL Normal 0.70-1.30 [facility] Comment on above: Performed By: #### B MP ####[facility] Bumyiqfljh8100 [place] [address]Dr. Erica Abarca EGFR-AF AUSTRIAN >60 Normal >=60 [facility] Comment on above: Performed By: #### B MP ####[facility] Rarzgfprve6113 [place] [address]Dr. Erica Abarca EGFR-NON AF AUSTRIAN >60 Normal >=60 [facility] Comment on above: Performed By: #### B MP ####[facility] Fnslznnstr2450 [place] [id number]. Erica Abarca Glucose [Mass/Vol] 239 mg/dL Critically high 74-[address] [facility] Comment on above: Performed By: #### B MP ####[facility] Bfdhqzhnma8082 [place] [id number]. Erica Abarca Potassium [Moles/Vol] 4.8 mmol/L Normal 3.5-5.1 [facility] Comment on above: Performed By: #### B MP ####[facility] Ifdapkgajr46[address] [place], [place] [address]Dr. Erica Abarca Sodium [Moles/Vol] 133 mmol/L Critically low 136-145 Th [facility] Comment on above: Performed By: #### B MP ####[facility] Mlpvwiiych4[address] [place], [place] [address]Dr. Erica Abarca Urea nitrogen [Mass/Vol] 28.0 mg/dL Critically high 7.0-18.0 [facility] Comment on above: Performed By: #### B MP ####[facility] Gyelkhwxuk[address] [place], [place] [address]Dr. Erica Abacra Urea nitrogen/Creatinine [Mass ratio] 23.0 mg/mg Normal [facility] Comment on above: Performed By: #### B MP ####[facility] Kaovpygpnb09[address] [place], [place] [address]Dr. Erica Abarca ABO RH RETYPEon 05-26-2022 ABO and Rh group Nom (Bld) DONE Normal [facility] Comment on above: Performed By: #### R ETYPE ####[facility] Yaetvxugzz[address] [place], [place] [address]Dr. Erica Abarca CBC AUTO DIFFon 05-26-2022 BASO # 0.0 103/ul Normal 0.0-0.1 [facility] Comment on above: Performed By: #### C BC ####[facility] Hdkmfdupph16[address] [place], [place] [address]Dr. Erica Abarca Basophils/100 WBC (Bld) 0.8 % Normal 0.2-2.0 [facility] Comment on above: Performed By: #### C BC ####[facility] Lzehqxjuuu5037 [place] [address]Dr. Erica Abarca EO # 0.2 103/ul Normal 0.0-0.7 [facility] Comment on above: Performed By: #### C BC ####[facility] Kyegleyuzq1112 [place] [address]Dr. Erica Abarca Eosinophils/100 WBC (Bld) 4.9 % Normal 0.9-7.0 [facility] Comment on above: Performed By: #### C BC ####[facility] Ycllfginnt9230 [place] [address]Dr. Erica Abarca Erythrocyte distribution width (RBC) [Ratio] 17.5 % Critically high 11.0-15.0 [facility] Comment on above: Performed By: #### C BC ####[facility] Ngjvxqztik87[address] [place], [place] [address]Dr. Erica Abarca Hematocrit (Bld) [Volume fraction] 25.8 % Critically low 42.0-54.0 [facility] Comment on above: Performed By: #### C BC ####[facility] Uskjxwgbne[address] [place], [place] [address]Dr. Erica Abarca Hemoglobin (Bld) [Mass/Vol] 7.2 g/dL Critically low 14.0-18.0 [facility] Comment on above: Performed By: #### C BC ####[facility] Nwalhfxoxp99[address] [place], [place] [address]Dr. Erica Abarca IG # 0.03 10e3/ul Normal 0.00-0.03 [facility] Comment on above: Performed By: #### C BC ####[facility] Etxyuoqwyo6[address] [place], [place] [address]Dr. Erica Abarca IG % 0.6 % Critically high 0.0-0.5 [facility] Comment on above: Performed By: #### C BC ####[facility] Jrtcbfakxh39[address] [place], [place] [address]DrCandi Shiraemilia Abarca LYMPH # 0.8 103/ul Critically low 1.2-3.8 [facility] Comment on above: Performed By: #### C BC ####[facility] Iaabpdahwh8511 [place] [address]DrCandi Abarca Lymphocytes/100 WBC (Bld) 17.3 % Critically low 20.5-60.0 [facility] Comment on above: Performed By: #### C BC ####[facility] Gpwnqbocxw0845 [place] [address]DrCandi Abarca MANUAL DIFF REQ NO Normal [facility] Comment on above: Performed By: #### C BC ####[facility] Zhdgenfjmd3000 [place] [address]Dr. Erica Abarca MCH (RBC) [Entitic mass] 22.2 pg Critically low 25.9-34.0 [facility] Comment on above: Performed By: #### C BC ####[facility] Dyxbnfoymb04[address] [place], [place] [address]Dr. Erica Abarca MCHC (RBC) [Mass/Vol] 27.9 g/dL Critically low 29.9-35.2 [facility] Comment on above: Performed By: #### C BC ####[facility] Kllkcfiaqo256[address] [place], [place] [address]DrCandi Abarca MCV (RBC) [Entitic vol] 79.6 fL Critically low 80.0-94.0 [facility] Comment on above: Performed By: #### C BC ####[facility] Ycnipcqfan458[address] [place], [place] [address]DrCandi Abarca MONO # 0.4 103/ul Normal 0.3-0.8 [facility] Comment on above: Performed By: #### C BC ####[facility] Bnhybpevfa906[address] [place], [place] [address]DrCandi Abarca Monocytes/100 WBC (Bld) 7.8 % Normal 1.7-12.0 [facility] Comment on above: Performed By: #### C BC ####[facility] Muvrhabfnk[address] [place], [place] [address]DrCandi Abarca NEUT # 3.3 103/ul Normal 1.4-6.5 [facility] Comment on above: Performed By: #### C BC ####[facility] Gaicuspbwl1344 [place] [address]Dr. Erica Abarca Neutrophils/100 WBC (Bld) 68.6 % Normal 43.0-75.0 [facility] Comment on above: Performed By: #### C BC ####[facility] Ngjwuoduor0662 [place] [id number]. Erica Abarca Platelet mean volume (Bld) [Entitic vol] 8.3 fL Critically low 9.5-13.5 [facility] Comment on above: Performed By: #### C BC ####[facility] Fzjicwtuei7813 [place] [address]Dr. Erica Abarca PLT 257 103/ul Normal 150-450 [facility] Comment on above: Performed By: #### C BC ####[facility] Bglynvhzet5158 [place] [address]Dr. Erica Abarca RBC 3.24 106/ul Critically low 4.70-6.10 [facility] Comment on above: Performed By: #### C BC ####[facility] Gcpwnnlhbz[address] [place], [place] [id number]. Erica Abarca WBC 4.9 103/ul Normal 4.0-11.0 [facility] Comment on above: Performed By: #### C BC ####[facility] Uiqlikogup1642 [place] [id number]. Erica Tevin POINT OF CARE GLUCOSEon 12-2 Glucose [Mass/Vol] 198 mg/dL Critically high 74-106 [facility] Comment on above: Performed By: #### P OCGLUC ####[facility] Hugusgdlkr[address] [place], [place] [address]Dr. Erica Abarca Glucose [Mass/Vol] 185 mg/dL Critically high 74-106 [facility] Comment on above: Performed By: #### P OCGLUC ####[facility] Rcsnowznqw[address] [place], [place] [id number]. Erica Tevin Glucose [Mass/Vol] 253 mg/dL Critically high 74-106 [facility] Comment on above: Performed By: #### P OCGLUC ####[facility] Hibcyutuoi1603 [place] [address]Dr. Erica Abarca Glucose [Mass/Vol] 186 mg/dL Critically high 74-106 [facility] Comment on above: Performed By: #### P OCGLUC ####[facility] Yjqqfcirxl[address] [place], [place] [address]Dr. Erica Abarca PROF CHEM 8 (BAS METB)on Anion gap [Moles/Vol] 10.3 mmol/L Normal [facility] Comment on above: Performed By: #### B MP ####[facility] [address]vzfegytya[address] [place], [place] [address]Dr. Erica Abarca Calcium [Mass/Vol] 8.5 mg/dL Normal 8.5-10.1 [facility] Comment on above: Performed By: #### B MP ####[facility] [facility] [address] [place], [place] [address]Dr. Erica Abarca Chloride [Moles/Vol] 98 mmol/L Normal 98-107 [facility] Comment on above: Performed By: #### B MP ####[facility] Ryiqutoaum[address] [place], [place] [address]Dr. Erica Abarca CO2 [Moles/Vol] 31.2 mmol/L Normal 21.0-32.0 [facility] Comment on above: Performed By: #### B MP ####[facility] Azvudpynjb98[address] [place], [place] [address]Dr. Erica Abarca Creatinine [Mass/Vol] 1.22 mg/dL Normal 0.70-1.30 [facility] Comment on above: Performed By: #### B MP ####[facility] Zzqnxnanta87[address] [place], [place] [address]Dr. Erica Abarca EGFR-AF AUSTRIAN >60 Normal >=60 [facility] Comment on above: Performed By: #### B MP ####[facility] Fueaggywxg6904[address] [place], [place] [address]Dr. Erica Abarca EGFR-NON AF AUSTRIAN >60 Normal >=60 [facility] Comment on above: Performed By: #### B MP ####[facility] Hkclfhvxmm8949 [place] [id number]. Erica Abarca Glucose [Mass/Vol] 184 mg/dL Critically high 74-[address] [facility] Comment on above: Performed By: #### B MP ####[facility] Unghzldxki7535 [place] [id number]. Shiraemilia Tevin Potassium [Moles/Vol] 4.5 mmol/L Normal 3.5-5.1 [facility] Comment on above: Performed By: #### B MP ####[facility] Legpobybul[address] [place] [address]Dr. Erica Abarca Sodium [Moles/Vol] 135 mmol/L Critically low 136-145 [facility] Comment on above: Performed By: #### B MP ####[facility] Qfviiymfyu7346 [place] [address]Dr. Shiraemilia Tevin Urea nitrogen [Mass/Vol] 25.0 mg/dL Critically high 7.0-18.0 [facility] Comment on above: Performed By: #### B MP ####[facility] Jhwuheytgn9266 [place] [address]Dr. Erica Tevin Urea nitrogen/Creatinine [Mass ratio] 20.5 mg/mg Normal [facility] Comment on above: Performed By: #### B MP ####[facility] Zsbmfqvlid8522 [place] [address]Dr. Erica Abarca TYPE AND SCREENon 05-26-2022 TYPE AND SCREEN Negative Normal [facility] Comment on above: Performed By: #### T NS ####[facility] Jvswpzvbrx3521 [place] [address]Dr. Erica Tevin XR CHEST 1 Von 05-26-2022 XR CHEST 1 V Normal [facility] CBC W MANUAL DIFFon 05-25-20 22 ATYPICAL LYMPH # Normal [facility] Comment on above: Performed By: #### C BCMAN ####[facility] Hfmmfhnfld0563 [place] [address]Dr. Erica Abarca ATYPICAL LYMPH % Normal [facility] Comment on above: Performed By: #### C BCMAN ####[facility] Bqvqllsqlx4820 [place] [address]Dr. Yiemilia Abarca BAND # 0.0 103/ul Normal 0.0-0.3 [facility] Comment on above: Performed By: #### C BCMAN ####[facility] Lkzekryxtx0999 [place] [address]Dr. Yilan Abarca BAND % 0 % Normal 0-5 [facility] Comment on above: Performed By: #### C BCSERENA ####[facility] Ttrwyjnicb2743 [place] [address]Dr. Yilan Abarca BASOM # 0.00 103/ul Normal 0.00-0.10 [facility] Comment on above: Performed By: #### C BCSERENA ####[facility] Hlczexhrgb7515[address] [place], [place] [address]Dr. Erica Abarca BASOM % 0.0 % Critically low 0.2-2.0 [facility] Comment on above: Performed By: #### C TIMI ####[facility] Gralovqodw9763 [place] [address]Dr. Yiemilia Abarca BLAST # Normal [facility] Comment on above: Performed By: #### C BCSERENA ####[facility] Deujpulcxw5707 [place] [address]Dr. Erica Abarca BLAST % Normal [facility] Comment on above: Performed By: #### C TIMI ####[facility] Jzktmhpluu7329 [place] [address]Dr. Erica Abarca CORRECTED WBC Normal 4.0-11.0 [facility] Comment on above: Performed By: #### C TIMI ####[facility] Obyyazgqwr9972 [place] [address]Dr. Erica Abarca EOS # 0.16 103/ul Normal 0.00-0.70 [facility] Comment on above: Performed By: #### C TIMI ####[facility] Hdkdfcegos[address] [place], [place] [address]Dr. Yilan Abarca EOS% 3.0 % Normal 0.9-7.0 [facility] Comment on above: Performed By: #### C TIMI ####[facility] Ouqomanwcx3660 [place] [address]Dr. Erica Abarca HCT 28.1 % Critically low 42.0-54.0 [facility] Comment on above: Performed By: #### C TIMI ####[facility] Pefetlxzvv8151 [place] [address]Dr. Erica Abarca HGB 7.8 g/dl Critically low 14.0-18.0 [facility] Comment on above: Performed By: #### C TIMI ####[facility] Modzlcfxgu6301 [place] [address]DrCandi Erica Abarca LYMPHM # 0.52 103/ul Critically low 1.20-3.80 [facility] Comment on above: Performed By: #### C TIMI ####[facility] Lejshreknt[address] [place], [place] [address]Dr. Erica Abarca LYMPHM% 10.0 % Critically low 20.5-60.0 [facility] Comment on above: Performed By: #### C TIMI ####[facility] Ldyrajmrrw[address] [place], [place] [address]Dr. Erica Abarca MCH 22.3 pg Critically low 25.9-34.0 [facility] Comment on above: Performed By: #### C TIMI ####[facility] Knrhuodtnf8470 [place] [address]DrCandi Erica Abarca MCHC 27.8 g/dl Critically low 29.9-35.2 [facility] Comment on above: Performed By: #### C TIMI ####[facility] Vtihxfykpl9852 [place] [address]DrCandi Erica Abarca MCV 80.5 fL Normal 80.0-94.0 [facility] Comment on above: Performed By: #### C TIMI ####[facility] Cvkgidsqnt0774 [place] [address]Dr. Erica Abarca METAMYELOCYTE # Normal [facility] Comment on above: Performed By: #### C TIMI ####[facility] Xingdksvuy8832 [place] [address]Dr. Erica Abarca METAMYELOCYTE % Normal [facility] Comment on above: Performed By: #### C TIMI ####[facility] Dasudclclj8005 [place], [place] [address]Lf. Erica Abarca MONOM# 0.16 103/ul Critically low 0.30-0.80 [facility] Comment on above: Performed By: #### C TIMI ####[facility] Qrtxidmvks0682 [place] [address]Dr. Erica Abarca MONOM% 3.0 % Normal 1.7-12.0 [facility] Comment on above: Performed By: #### C TIMI ####[facility] Oricclnjuq1495 [place] [address]Dr. Erica Abarca MPV 8.4 fL Critically low 9.5-13.5 [facility] Comment on above: Performed By: #### C TIMI ####[facility] Eapeptadfm6731 [place] [address]Dr. Erica Abarca MYELOCYTE # Normal [facility] Comment on above: Performed By: #### C TIMI ####[facility] Jvyzgbdizf9318 [place] [address]Dr. Erica Abarca MYELOCYTE % Normal [facility] Comment on above: Performed By: #### C TIMI ####[facility] Fylannzvzg9949 [place] [address]Dr. Erica Abarca NRBC Normal [facility] Comment on above: Performed By: #### C TIMI ####[facility] Yqdoncyjje2696 [place] [address]Dr. Erica Abarca PLT 258 103/ul Normal 150-450 [facility] Comment on above: Performed By: #### C TIMI ####[facility] Iteezkijla4815 [place] [address]Dr. Shiraemilia Abarca RBC 3.49 106/ul Critically low 4.70-6.10 [facility] Comment on above: Performed By: #### C TIMI ####[facility] Kherpehwki9543 [place], [place] [address]Rr. Erica Abarca RDW 17.8 % Critically high 11.0-15.0 [facility] Comment on above: Performed By: #### C TIMI ####[facility] Mllezcwvyi0782 [place], [place] [address]Kx. Erica Abarca SEG # 4.37 103/ul Normal 1.40-6.50 [facility] Comment on above: Performed By: #### C BCMAN ####[facility] Ztwivedbcn5397 [place], [place] [address]Xd. Erica Abarca SEG % 84.0 % Critically high 43.0-75.0 [facility] Comment on above: Performed By: #### C BCSERENA ####[facility] Wkegbfvvor6534 [place] [address]Dr. Erica Abacra WBC 5.2 103/ul Normal 4.0-11.0 [facility] Comment on above: Performed By: #### C TIMI ####[facility] Llsndmmozt3370 [place] [address]Dr. Erica Abarca POINT OF CARE GLUCOSEon 04-29 Glucose [Mass/Vol] 263 mg/dL Critically high -106 [facility] Comment on above: Performed By: #### P OCGLUC ####[facility] Nnbmjigmhh5721 [place] [address]Dr. Erica Abarca Glucose [Mass/Vol] 177 mg/dL Critically high -106 [facility] Comment on above: Performed By: #### P OCGLUC ####[facility] Nfjfnexyfd9736 [place] [address]Dr. Erica Abarca Glucose [Mass/Vol] 190 mg/dL Critically high -106 [facility] Comment on above: Performed By: #### P OCGLUC ####[facility] Uwlhdfjnds0070 [place] [address]Dr. Erica Abarca Glucose [Mass/Vol] 200 mg/dL Critically high -106 [facility] Comment on above: Performed By: #### P OCGLUC ####[facility] Svggocqaan8418 [place] [address]Dr. Erica Abarca PROF CHEM 8 (BAS METB)on Anion gap [Moles/Vol] 8.9 mmol/L Normal [facility] Comment on above: Performed By: #### B MP ####[facility] Ltehgkirkz7114 [place] [address]Dr. Erica Abarca Calcium [Mass/Vol] 8.4 mg/dL Critically low 8.5-10.1 [facility] Comment on above: Performed By: #### B MP ####[facility] Vbhzoilmjz[address] [place], [place] [address]Dr. Erica Abarca Chloride [Moles/Vol] 99 mmol/L Normal 98-107 [facility] Comment on above: Performed By: #### B MP ####[facility] Svkwadwviy201[address] [place], [place] [address]Dr. Erica Abarca CO2 [Moles/Vol] 31.4 mmol/L Normal 21.0-32.0 [facility] Comment on above: Performed By: #### B MP ####[facility] Hqfojurlru424[address] [place], [place] [address]Dr. Erica Abarca Creatinine [Mass/Vol] 1.32 mg/dL Critically high 0.70-1.30 [facility] Comment on above: Performed By: #### B MP ####[facility] Djwdydchhq8636[address] [place], [place] [address]Dr. Erica Abarca EGFR-AF AUSTRIAN >60 Normal >=60 [facility] Comment on above: Performed By: #### B MP ####[facility] Frmfkabaxd106[address] [place], [place] [address]Dr. Erica Abarca EGFR-NON AF AUSTRIAN 56 mL/min/1.73m2 Critically low >=60 [facility] Comment on above: Performed By: #### B MP ####[facility] Ruvolmybvw259[address] [place], [place] [address]Dr. Erica Abarca Glucose [Mass/Vol] 179 mg/dL Critically high 74-[address] [facility] Comment on above: Performed By: #### B MP ####[facility] Yrurdcbhfk7361 [place] [address]Dr. Shiraemilia Tevin Potassium [Moles/Vol] 4.3 mmol/L Normal 3.5-5.1 [facility] Comment on above: Performed By: #### B MP ####[facility] Qdbrogposm808[address] [place], [place] [address]Dr. Erica Abarca Sodium [Moles/Vol] 135 mmol/L Critically low 136-145 [facility] Comment on above: Performed By: #### B MP ####[facility] Brrjnebriu2737[address] [place], [place] [address]Dr. Erica Abarca Urea nitrogen [Mass/Vol] 22.0 mg/dL Critically high 7.0-18.0 [facility] Comment on above: Performed By: #### B MP ####[facility] Iuyihgftyw4579[address] [place], [place] [address]Dr. Erica Abarca Urea nitrogen/Creatinine [Mass ratio] 16.7 mg/mg Normal [facility] Comment on above: Performed By: #### B MP ####[facility] Ztuvznzwtn5550[address] [place], [place] [address]Dr. Erica Abarca CBC AUTO DIFFon 05-24-2022 BASO # 0.0 103/ul Normal 0.0-0.1 [facility] Comment on above: Performed By: #### C BC ####[facility] Eeejhzmaen9532[address] [place], [place] [address]Dr. Erica Abarca Basophils/100 WBC (Bld) 0.6 % Normal 0.2-2.0 [facility] Comment on above: Performed By: #### C BC ####[facility] Mtrgjgrtow0555[address] [place], [place] [address]Dr. Erica Abarca EO # 0.2 103/ul Normal 0.0-0.7 [facility] Comment on above: Performed By: #### C BC ####[facility] Gcoutchwgi5280[address] [place], [place] [address]Dr. Erica Abarca Eosinophils/100 WBC (Bld) 3.5 % Normal 0.9-7.0 [facility] Comment on above: Performed By: #### C BC ####[facility] Itqungwawz801[address] [place], [place] [address]Dr. Erica Abarca Erythrocyte distribution width (RBC) [Ratio] 18.0 % Critically high 11.0-15.0 [facility] Comment on above: Performed By: #### C BC ####[facility] Ignalkykhz7325[address] [place], [place] [address]DrCandi Abarca Hematocrit (Bld) [Volume fraction] 27.5 % Critically low 42.0-54.0 [facility] Comment on above: Performed By: #### C BC ####[facility] Pqzaexdyuf5564[address] [place], [place] [address]DrCandi Abarca Hemoglobin (Bld) [Mass/Vol] 7.7 g/dL Critically low 14.0-18.0 [facility] Comment on above: Performed By: #### C BC ####[facility] Wrvtcllntu0670[address] [place], [place] [address]DrCandi Abarca IG # 0.03 10e3/ul Normal 0.00-0.03 [facility] Comment on above: Performed By: #### C BC ####[facility] Cqofhhpysp128[address] [place], [place] [address]DrCandi Abarca IG % 0.5 % Normal 0.0-0.5 [facility] Comment on above: Performed By: #### C BC ####[facility] Mesomlwccc496[address] [place], [place] [address]DrCandi Abarca LYMPH # 0.8 103/ul Critically low 1.2-3.8 [facility] Comment on above: Performed By: #### C BC ####[facility] Zzdkutnxrn1344[address] [place], [place] [address]DrCandi Abarca Lymphocytes/100 WBC (Bld) 12.0 % Critically low 20.5-60.0 [facility] Comment on above: Performed By: #### C BC ####[facility] Osuoikynzm809[address] [place], [place] [address]DrCandi Abarca MANUAL DIFF REQ NO Normal [facility] Comment on above: Performed By: #### C BC ####[facility] Shteypjmgc4011 [place] [id number] Abarca MCH (RBC) [Entitic mass] 22.2 pg Critically low 25.9-34.0 [facility] Comment on above: Performed By: #### C BC ####[facility] Fwhjnbmpnp369[address] [place], [place] [address]DrCandi Abarca MCHC (RBC) [Mass/Vol] 28.0 g/dL Critically low 29.9-35.2 [facility] Comment on above: Performed By: #### C BC ####[facility] Ardxggaami7423[address] [place], [place] [address]DrCandi Abarca MCV (RBC) [Entitic vol] 79.3 fL Critically low 80.0-94.0 [facility] Comment on above: Performed By: #### C BC ####[facility] Nisnfpayiu040[address] [place], [place] [address]DrCandi Abarca MONO # 0.4 103/ul Normal 0.3-0.8 [facility] Comment on above: Performed By: #### C BC ####[facility] Doakvbvfzx500[address] [place], [place] [address]DrCandi Abarca Monocytes/100 WBC (Bld) 6.3 % Normal 1.7-12.0 [facility] Comment on above: Performed By: #### C BC ####[facility] Glxgjdjpui087[address] [place], [place] [address]DrCandi Abarca NEUT # 5.0 103/ul Normal 1.4-6.5 [facility] Comment on above: Performed By: #### C BC ####[facility] Rypbanbjjr518[address] [place], [place] [address]DrCandi Abarca Neutrophils/100 WBC (Bld) 77.1 % Critically high 43.0-75.0 [facility] Comment on above: Performed By: #### C BC ####[facility] Dtdmxqcxwt258[address] [place], [place] [address]DrCandi Abarca Platelet mean volume (Bld) [Entitic vol] 8.1 fL Critically low 9.5-13.5 [facility] Comment on above: Performed By: #### C BC ####[facility] Rxckuqjumv5917 [place] [id number]. Erica Abarca PLT 275 103/ul Normal 150-450 [facility] Comment on above: Performed By: #### C BC ####[facility] Ziyzylrbgt34[address] [place], [place] [address]Dr. Erica Abarca RBC 3.47 106/ul Critically low 4.70-6.10 [facility] Comment on above: Performed By: #### C BC ####[facility] Rjyszbduuy444[address] [place], [place] [address]Dr. Erica Abarca WBC 6.5 103/ul Normal 4.0-11.0 [facility] Comment on above: Performed By: #### C BC ####[facility] Ynxsukytwj9280[address] [place], [place] [address]Dr. Erica Abarca CULTURE ANAEROBICon 05-24-20 22 CULTURE ANAEROBIC Culture Observations: NO GROWTH OF ANAEROBES AT 72 HOURS. Normal [facility] Comment on above: Performed By: #### A NACX ####[facility] Konwvurmsp023[address] [place], [place] [address]Dr. Erica Abarca CULTURE OTHERon 05-24-2022 CULTURE OTHER Culture Observations: NO GROWTH OF AEROBES AT 48 HRS. Culture Observations: NO GROWTH OF ANAEROBES AT 72 HOURS. Normal [facility] Comment on above: Performed By: #### O THCX ####[facility] Wgdxcyecaa295[address] [place], [place] [address]Dr. Erica Abarca GRAM STAINon 05-24-2022 COMMENTS NO ORGANISMS OBSERVED Normal [facility] Comment on above: Performed By: #### G STAIN ####[facility] Ywxsdebcfo[address] [place], [place] [address]DrCandi Erica Tevin DIPHTHEROIDS Normal [facility] Comment on above: Performed By: #### G STAIN ####[facility] Olixhfoyso570[address] [place], [place] [address]Dr. Erica Abarca EPITHELIALS Normal [facility] Comment on above: Performed By: #### G STAIN ####[facility] Whodubdzzn6503 [place] [address]Dr. Erica Abarca FUNGAL ELEMENTS Normal [facility] Comment on above: Performed By: #### G STAIN ####[facility] Kuvauapjot6637 [place] [address]Dr. Erica Abarca GRAM NEG BACILLI Normal [facility] Comment on above: Performed By: #### G STAIN ####[facility] Dowbmfrrky1820 [place] [address]Dr. Erica Abarca GRAM NEG DIPPLOCOCCI Normal [facility] Comment on above: Performed By: #### G STAIN ####[facility] Adhrcsqcrg0288 [place] [address]Dr. Erica Abarca GRAM POS BACILLI Normal [facility] Comment on above: Performed By: #### G STAIN ####[facility] Oawmtchyxi36[address] [place], [place] [address]Dr. Erica Abarca GRAM POSITIVE COCCI Normal [facility] Comment on above: Performed By: #### G STAIN ####[facility] Jvvlfvfvsc8312 [place] [address]Dr. Erica Abarca GRAM STAIN SOURCE Rt Ankle Reamings Normal [facility] Comment on above: Performed By: #### G STAIN ####[facility] Dgznfmruog3608 [place] [address]Dr. Erica Abarca GS_DIPTH Normal [facility] Comment on above: Performed By: #### G STAIN ####[facility] Fxwqryvtrm8148 [place] [address]Dr. Eirca Abarca WBC RARE Normal [facility] Comment on above: Performed By: #### G STAIN ####[facility] Etyyqrdmyv966[address] [place], [place] [address]Dr. Erica Abarca POINT OF CARE GLUCOSEon 12-2 Glucose [Mass/Vol] 202 mg/dL Critically high 74-[address] [facility] Comment on above: Performed By: #### P OCGLUC ####[facility] Ypdppjmonp1083 [place] [address]Dr. Yilan Abarca Glucose [Mass/Vol] 132 mg/dL Critically high 74-106 [facility] Comment on above: Performed By: #### P OCGLUC ####[facility] Tvcpxyskpa3537[address] [place], [place] [address]Dr. Yilan Abarca Glucose [Mass/Vol] 99 mg/dL Normal 74-106 [facility] Comment on above: Performed By: #### P OCGLUC ####[facility] Uvexaouadv287[address] [place], [place] [address]Dr. Yilan Abarca Glucose [Mass/Vol] 81 mg/dL Normal 74-106 [facility] Comment on above: Performed By: #### P OCGLUC ####[facility] Uloceayoiw8380[address] [place], [place] [address]Dr. Yilan Abarca Glucose [Mass/Vol] 77 mg/dL Normal 74-106 [facility] Comment on above: Performed By: #### P OCGLUC ####[facility] Ogkqttetqk3640[address] [place], [place] [address]Dr. Shiralan Abarca Glucose [Mass/Vol] 73 mg/dL Critically low 74-106 [facility] Comment on above: Performed By: #### P OCGLUC ####[facility] Ujaqeamsna419[address] [place], [place] [address]Dr. Yilan Abarca Glucose [Mass/Vol] 72 mg/dL Critically low 74-106 [facility] Comment on above: Performed By: #### P OCGLUC ####[facility] Crrqvflkva655[address] [place], [place] [address]Dr. Yilan Abarca Glucose [Mass/Vol] 85 mg/dL Normal 74-106 [facility] Comment on above: Performed By: #### P OCGLUC ####[facility] Gopwrldwun550[address] [place], [place] [address]Dr. Shiralan Abarca PROF CHEM 8 (BAS METB)on Anion gap [Moles/Vol] 11.2 mmol/L Normal [facility] Comment on above: Performed By: #### B MP ####[facility] Dvuxvmpjpe7646 [place] [address]Dr. Erica Abarca Calcium [Mass/Vol] 8.6 mg/dL Normal 8.5-10.1 [facility] Comment on above: Performed By: #### B MP ####[facility] Svkrqfpxcn713[address] [place], [place] [address]Dr. Erica Abarca Chloride [Moles/Vol] 99 mmol/L Normal 98-107 [facility] Comment on above: Performed By: #### B MP ####[facility] Nohctoolet379[address] [place], [place] [address]Dr. Erica Abarca CO2 [Moles/Vol] 29.6 mmol/L Normal 21.0-32.0 [facility] Comment on above: Performed By: #### B MP ####[facility] Hpuorbgyzs81967[address] [place], [place] [address]Dr. Erica Abarca Creatinine [Mass/Vol] 1.17 mg/dL Normal 0.70-1.30 [facility] Comment on above: Performed By: #### B MP ####[facility] Fjkwbhnwyl9[address] [place], [place] [address]Dr. Erica Abarca EGFR-AF AUSTRIAN >60 Normal >=60 [facility] Comment on above: Performed By: #### B MP ####[facility] Spxtapitsz366[address] [place], [place] [address]Dr. Erica Aabrca EGFR-NON AF AUSTRIAN >60 Normal >=60 [facility] Comment on above: Performed By: #### B MP ####[facility] Oosldfkjpg4569[address] [place], [place] [address]Dr. Erica Abarca Glucose [Mass/Vol] 70 mg/dL Critically low 74-106 [facility] Comment on above: Performed By: #### B MP ####[facility] Tabrwptnot1468[address] [place], [place] [address]Dr. Erica Abarca Potassium [Moles/Vol] 3.8 mmol/L Normal 3.5-5.1 [facility] Comment on above: Performed By: #### B MP ####[facility] Rljzmrqero3380[address] [place], [place] [address]Dr. Erica Abarca Sodium [Moles/Vol] 136 mmol/L Normal 136-145 [facility] Comment on above: Performed By: #### B MP ####[facility] Yiinltsswn7125 [place] [address]Dr. Erica Abarca Urea nitrogen [Mass/Vol] 20.0 mg/dL Critically high 7.0-18.0 [facility] Comment on above: Performed By: #### B MP ####[facility] Ecdgaxgusb0622 [place] [address]Dr. Erica Abarca Urea nitrogen/Creatinine [Mass ratio] 17.1 mg/mg Normal [facility] Comment on above: Performed By: #### B MP ####[facility] Gbunfjqzww[address] [place], [place] [address]Dr. Erica Abarca XR ANKLE RT 2Von 05-24-2022 XR ANKLE RT 2V Normal [facility] XR FOOT RT MIN 3 VIEWSon XR FOOT RT MIN 3 VIEWS Normal [facility] XR TIB_FIB RT 2Von 2 XR TIB_FIB RT 2V Normal [facility] CBC AUTO DIFFon 05-23-2022 BASO # 0.1 103/ul Normal 0.0-0.1 [facility] Comment on above: Performed By: #### C BC ####[facility] Iiqpgsscsd0107 [place] [address]Dr. Erica Tevin Basophils/100 WBC (Bld) 0.5 % Normal 0.2-2.0 [facility] Comment on above: Performed By: #### C BC ####[facility] Ikyegulsem3809 [place] [address]Dr. Erica Tevin EO # 0.2 103/ul Normal 0.0-0.7 [facility] Comment on above: Performed By: #### C BC ####[facility] Pifdskayza4267 [place] [address]Dr. Erica Tevin Eosinophils/100 WBC (Bld) 2.0 % Normal 0.9-7.0 [facility] Comment on above: Performed By: #### C BC ####[facility] Sjoivggyen7722 [place] [address]Dr. Erica Abarca Erythrocyte distribution width (RBC) [Ratio] 17.6 % Critically high 11.0-15.0 [facility] Comment on above: Performed By: #### C BC ####[facility] Fuwhnixfnt8469 [place] [address]Dr. Erica Abarca Hematocrit (Bld) [Volume fraction] 28.5 % Critically low 42.0-54.0 [facility] Comment on above: Performed By: #### C BC ####[facility] Maifyqifhx1074 [place] [address]Dr. Erica Abarca Hemoglobin (Bld) [Mass/Vol] 8.4 g/dL Critically low 14.0-18.0 [facility] Comment on above: Performed By: #### C BC ####[facility] Dxtlrdhpnh[address] [place], [place] [address]Dr. Erica Abarca IG # 0.05 10e3/ul Critically high 0.00-0.03 [facility] [place] [facility] Comment on above: Performed By: #### C BC ####[facility] Btqbtayssp873[address] [place], [place] [address]Dr. Shiraemilia Abarca IG % 0.5 % Normal 0.0-0.5 [facility] Comment on above: Performed By: #### C BC ####[facility] Kbggtmjrwr9[address] [place], [place] [address]Dr. Erica Abarca LYMPH # 0.8 103/ul Critically low 1.2-3.8 [facility] Comment on above: Performed By: #### C BC ####[facility] Xrfrnceubm004[address] [place], [place] [address]Dr. Shiraemilia Abarca Lymphocytes/100 WBC (Bld) 8.5 % Critically low 20.5-60.0 [facility] Comment on above: Performed By: #### C BC ####[facility] Navhvozzyr600[address] [place], [place] [address]Dr. Shiraemilia Abarca MANUAL DIFF REQ NO Normal [facility] Comment on above: Performed By: #### C BC ####[facility] Unbxtsxama5348 [place] [id number]. Erica Tevin MCH (RBC) [Entitic mass] 23.1 pg Critically low 25.9-34.0 [facility] Comment on above: Performed By: #### C BC ####[facility] Pipexpnely3207 [place] [address]Dr. Erica Tevin MCHC (RBC) [Mass/Vol] 29.5 g/dL Critically low 29.9-35.2 [facility] Comment on above: Performed By: #### C BC ####[facility] Anheqhkugr4648 [place] [address]Dr. Erica Abarca MCV (RBC) [Entitic vol] 78.3 fL Critically low 80.0-94.0 [facility] Comment on above: Performed By: #### C BC ####[facility] Mighmpzouh037[address] [place], [place] [address]Dr. Erica Abarca MONO # 0.6 103/ul Normal 0.3-0.8 [facility] Comment on above: Performed By: #### C BC ####[facility] Ldrsbxrxdx4675 [place] [address]Dr. Erica Abarca Monocytes/100 WBC (Bld) 6.0 % Normal 1.7-12.0 [facility] Comment on above: Performed By: #### C BC ####[facility] Xtxyrothzw5963 [place] [address]Dr. Erica Abarca NEUT # 8.0 103/ul Critically high 1.4-6.5 [facility] Comment on above: Performed By: #### C BC ####[facility] Uyqzknegwg3848 [place] [address]Dr. Erica Abarca Neutrophils/100 WBC (Bld) 82.5 % Critically high 43.0-75.0 [facility] Comment on above: Performed By: #### C BC ####[facility] Kzyewxyoem[address] [place], [place] [address]Dr. Erica Abarca Platelet mean volume (Bld) [Entitic vol] 8.6 fL Critically low 9.5-13.5 [facility] Comment on above: Performed By: #### C BC ####[facility] Idkltronrk2369 [place], [place] [address]Ds. Erica Abarca PLT 321 103/ul Normal 150-450 [facility] Comment on above: Performed By: #### C BC ####[facility] Wjfnmkrvff4796 [place], [place] [address]Fy. Erica Abarca RBC 3.64 106/ul Critically low 4.70-6.10 [facility] Comment on above: Performed By: #### C BC ####[facility] Zerxkwgylx4792 [place], [place] [address]Vx. Erica Abarca WBC 9.7 103/ul Normal 4.0-11.0 [facility] Comment on above: Performed By: #### C BC ####[facility] Obngujvcpn0090 [place], [place] [address]Ta. Erica Abarca CRPon 05-23-2022 CRP 9.1 mg/dL Critically high <=1.0 [facility] Comment on above: Performed By: #### B MP, CRP ####[facility] Qgwyitugml4549 [place], [place] [address]Nj. Erica Abarca Covid-19 PCR ([facility])on 04-29 SARS-CoV-2 (COVID-19) RNA REJI+probe Ql (Unsp spec) Not detected Normal NOT DETECTED [facility] Comment on above: Result Comment: When diagnostic testing is negative, the possibility of a false negative should be considered inthe context of a patient's recent exposures and the presence of clinical signs and symptomsconsistent with SARS-CoV-2.This test is not yet approved or cleared by the [place] FDA. When there are no FDA-approved or cleared tests available, and other criteria are met, FDA can make tests available under an emergency access mechanism called an Emergency Use Authorization (EUA). The EUA for this test is supported by the [place] of Health and Human Service's declaration that circumstances exist to justify the emergency use of in vitro diagnostics for the detection and/or diagnosis of the virus that causes COVID-19. This EUA will remain in effect for the duration of the COVID-19 declaration justifying emergency of IVDs, unless it is terminated or revoked by the FDA (after which the test may no longer be used). Performed By: #### C VDTBH ####[facility] Lvnjxsklgx0488 [place] [address]Dr. Erica Abarca POINT OF CARE GLUCOSEon 04-29 Glucose [Mass/Vol] 92 mg/dL Normal 74-106 [facility] Comment on above: Performed By: #### P OCGLUC ####[facility] Lrkoasztyd8161 [place] [address]Dr. Erica Abarca Glucose [Mass/Vol] 117 mg/dL Critically high 74-106 [facility] Comment on above: Performed By: #### P OCGLUC ####[facility] Ugibknixaw57[address] [place], [place] [address]Dr. Erica Abarca PROF CHEM 8 (BAS METB)on Anion gap [Moles/Vol] 12.6 mmol/L Normal [facility] Comment on above: Performed By: #### B MP, CRP ####[facility] Eijctywxey6[address] [place], [place] [address]Dr. Erica Abarca Calcium [Mass/Vol] 9.0 mg/dL Normal 8.5-10.1 [facility] Comment on above: Performed By: #### B MP, CRP ####[facility] Fxammlffia26[address] [place], [place] [address]Dr. Erica Abarca Chloride [Moles/Vol] 99 mmol/L Normal 98-107 [facility] Comment on above: Performed By: #### B MP, CRP ####[facility] Hmzikwcqbg0291 [place] [address]Dr. Erica Abarca CO2 [Moles/Vol] 28.0 mmol/L Normal 21.0-32.0 [facility] Comment on above: Performed By: #### B MP, CRP ####[facility] Dwlnslugck617[address] [place], [place] [address]Dr. Erica Abarca Creatinine [Mass/Vol] 1.21 mg/dL Normal 0.70-1.30 [facility] Comment on above: Performed By: #### B MP, CRP ####[facility] Zwhitsunyf6244 [place] [address]Dr. Erica Abarca EGFR-AF AUSTRIAN >60 Normal >=60 [facility] Comment on above: Performed By: #### B MP, CRP ####[facility] Jbhfuexowb4157 [place] [address]Dr. Erica Abarca EGFR-NON AF AUSTRIAN >60 Normal >=60 [facility] Comment on above: Performed By: #### B MP, CRP ####[facility] Gsnitlbcei5893 [place] [address]Dr. Shiraemilia Abarca Glucose [Mass/Vol] 87 mg/dL Normal 74-106 [facility] Comment on above: Performed By: #### B MP, CRP ####[facility] Xjzffnivgx4846 [place] [address]Dr. Erica Abarca Potassium [Moles/Vol] 4.6 mmol/L Normal 3.5-5.1 [facility] Comment on above: Performed By: #### B MP, CRP ####[facility] Daoguarqum4824[address] [place], [place] [address]Dr. Shiraemilia Abarca Sodium [Moles/Vol] 135 mmol/L Critically low 136-145 [facility] Comment on above: Performed By: #### B MP, CRP ####[facility] Lxekzlmmye[address] [place], [place] [address]Dr. Shiraemilia Abarca Urea nitrogen [Mass/Vol] 20.0 mg/dL Critically high 7.0-18.0 [facility] Comment on above: Performed By: #### B MP, CRP ####[facility] Lbpwiuoegs7772 [place] [address]Dr. Shiraemilia Tevin Urea nitrogen/Creatinine [Mass ratio] 16.5 mg/mg Normal [facility] Comment on above: Performed By: #### B MP, CRP ####[facility] Biectssonh9457 [place] [address]Dr. Erica Abarca SED RATE [facility] 2021 SED RATE 113 mm/hr Critically high <=20 [facility] Comment on above: Performed By: #### S EDR ####[facility] Yarogihtuo4467 [place] [id number]. Erica Abarca CT ANKLE RT WO CONon 022 CT ANKLE RT WO CON Normal [facility] XR FOOT RT MIN 3 VIEWSon XR FOOT RT MIN 3 VIEWS Normal [facility] CBC AUTO DIFFon 04-05-2022 BASO # 0.0 103/ul Normal 0.0-0.1 [facility] Comment on above: Performed By: #### C BC ####[facility] Ogdmaktxqn8017 [place] [address]Dr. Erica Abarca Basophils/100 WBC (Bld) 0.8 % Normal 0.2-2.0 [facility] Comment on above: Performed By: #### C BC ####[facility] Sfizzpjtnw3992 [place] [address]Dr. Erica Abarca EO # 0.2 103/ul Normal 0.0-0.7 [facility] Comment on above: Performed By: #### C BC ####[facility] Ksyhcohvzp5785 [place] [address]Dr. Erica Abarca Eosinophils/100 WBC (Bld) 4.4 % Normal 0.9-7.0 [facility] Comment on above: Performed By: #### C BC ####[facility] Rcfgapvxjb1026 [place] [address]Dr. Erica Abarca Erythrocyte distribution width (RBC) [Ratio] 16.5 % Critically high 11.0-15.0 [facility] Comment on above: Performed By: #### C BC ####[facility] Abvbctozqc9147 [place] [address]Dr. Erica Abarca Hematocrit (Bld) [Volume fraction] 29.7 % Critically low 42.0-54.0 [facility] Comment on above: Performed By: #### C BC ####[facility] Kgaxjllmze7048 [place] [address]Dr. Erica Abarca Hemoglobin (Bld) [Mass/Vol] 8.7 g/dL Critically low 14.0-18.0 [facility] Comment on above: Performed By: #### C BC ####[facility] Gepbmfpgof0893 [place] [address]DrCandi Abarca IG # 0.02 10e3/ul Normal 0.00-0.03 [facility] Comment on above: Performed By: #### C BC ####[facility] Szdzvkkmil3449 [place] [address]DrCandi Abarca IG % 0.4 % Normal 0.0-0.5 [facility] Comment on above: Performed By: #### C BC ####[facility] Ssgthibpke1740 [place] [address]DrCandi Abarca LYMPH # 1.0 103/ul Critically low 1.2-3.8 [facility] Comment on above: Performed By: #### C BC ####[facility] Mofuwkdfiq5202 [place] [address]DrCandi Abarca Lymphocytes/100 WBC (Bld) 18.9 % Critically low 20.5-60.0 [facility] Comment on above: Performed By: #### C BC ####[facility] Vpsyyhqrnl2667 [place] [address]DrCandi Abarca MANUAL DIFF REQ NO Normal [facility] Comment on above: Performed By: #### C BC ####[facility] Gdilhqllmf8871 [place] [address]Dr. Erica Abarca MCH (RBC) [Entitic mass] 24.2 pg Critically low 25.9-34.0 [facility] Comment on above: Performed By: #### C BC ####[facility] Bwhgjombgh3868 [place] [address]DrCandi Abarca MCHC (RBC) [Mass/Vol] 29.3 g/dL Critically low 29.9-35.2 [facility] Comment on above: Performed By: #### C BC ####[facility] Gdcyuxwpgp3860 [place] [address]DrCandi Abarca MCV (RBC) [Entitic vol] 82.7 fL Normal 80.0-94.0 [facility] Comment on above: Performed By: #### C BC ####[facility] Onhgzfgmxp8084 [place] [address]Dr. Erica Abarca MONO # 0.4 103/ul Normal 0.3-0.8 [facility] Comment on above: Performed By: #### C BC ####[facility] Jhhokqeeah0256 [place] [address]Dr. Erica Abarca Monocytes/100 WBC (Bld) 8.5 % Normal 1.7-12.0 [facility] Comment on above: Performed By: #### C BC ####[facility] Mqadtkaeaw7848 [place] [address]Dr. Erica Abarca NEUT # 3.5 103/ul Normal 1.4-6.5 [facility] Comment on above: Performed By: #### C BC ####[facility] Hxlvledlri9137 [place] [address]Dr. Erica Abarca Neutrophils/100 WBC (Bld) 67.0 % Normal 43.0-75.0 [facility] Comment on above: Performed By: #### C BC ####[facility] Vljhvdovdq8045 [place] [address]Dr. Erica Abarca Platelet mean volume (Bld) [Entitic vol] 8.4 fL Critically low 9.5-13.5 [facility] Comment on above: Performed By: #### C BC ####[facility] Yueeetkels5873 [place] [address]Dr. Erica Abarca PLT 216 103/ul Normal 150-450 [facility] Comment on above: Performed By: #### C BC ####[facility] Mvvxtmjkbt8738 [place] [address]Dr. Erica Abarca RBC 3.59 106/ul Critically low 4.70-6.10 [facility] Comment on above: Performed By: #### C BC ####[facility] Qknmszynah2933 [place] [address]Dr. Erica Abarca WBC 5.2 103/ul Normal 4.0-11.0 [facility] Comment on above: Performed By: #### C BC ####[facility] Gelqxygspr9662 [place] [address]Dr. Erica Abarca POINT OF CARE GLUCOSEon Glucose [Mass/Vol] 113 mg/dL Critically high 74-106 [facility] Comment on above: Performed By: #### P OCGLUC ####[facility] Ybxqoywmcx0946 [place] [address]Dr. Erica Abarca Glucose [Mass/Vol] 164 mg/dL Critically high 74-106 [facility] Comment on above: Performed By: #### P OCGLUC ####[facility] Kobwujojol4087 [place] [address]Dr. Erica Abarca PROF 14(COMP METB)on 022 Albumin [Mass/Vol] 2.8 g/dL Critically low 3.4-5.0 [facility] Comment on above: Performed By: #### C MP ####[facility] Rhvrnbylwy413[address] [place], [place] [address]Dr. Erica Abarca Albumin/Globulin [Mass ratio] 0.7 {ratio} Normal [facility] Comment on above: Performed By: #### C MP ####[facility] Zfawvppdxj632[address] [place], [place] [address]Dr. Erica Abarca ALP [Catalytic activity/Vol] 69 U/L Normal 46-116 [facility] Comment on above: Performed By: #### C MP ####[facility] Sjcemxtsjg0668 [place] [address]Dr. Erica Abarca ALT [Catalytic activity/Vol] 13 U/L Critically low 16-63 [facility] Comment on above: Performed By: #### C MP ####[facility] Sriubwnalq8244 [place] [address]Dr. Erica bAarca Anion gap [Moles/Vol] 7.4 mmol/L Normal [facility] Comment on above: Performed By: #### C MP ####[facility] Fwwdnaxdtv3316 [place] [address]Dr. Erica Abarca AST [Catalytic activity/Vol] 17 U/L Normal 15-37 [facility] Comment on above: Performed By: #### C MP ####[facility] Ankwwwatdb8330 [place] [address]Dr. Erica Abarca Bilirubin [Mass/Vol] 0.6 mg/dL Normal 0.2-1.0 [facility] Comment on above: Performed By: #### C MP ####[facility] Ybxychlybv517[address] [place], [place] [address]Dr. Erica Abarca Calcium [Mass/Vol] 8.9 mg/dL Normal 8.5-10.1 [facility] Comment on above: Performed By: #### C MP ####[facility] Orcthzsnyc880372 [address] [place], [place] [address]Dr. Erica Abarca Chloride [Moles/Vol] 103 mmol/L Normal 98-107 [facility] Comment on above: Performed By: #### C MP ####[facility] Mznsvmddqf585[address] [place], [place] [address]Dr. Erica Abarca CO2 [Moles/Vol] 30.3 mmol/L Normal 21.0-32.0 [facility] Comment on above: Performed By: #### C MP ####[facility] Ykffhzxiwj839[address] [place], [place] [address]Dr. Erica Abarca Creatinine [Mass/Vol] 1.16 mg/dL Normal 0.70-1.30 [facility] Comment on above: Performed By: #### C MP ####[facility] Iudsbmypmb4700[address] [place], [place] [address]Dr. Erica Abarca EGFR-AF AUSTRIAN >60 Normal >=60 [facility] Comment on above: Performed By: #### C MP ####[facility] Sgrpmqmatn9[address] [place], [place] [address]Dr. Erica Abarca EGFR-NON AF AUSTRIAN >60 Normal >=60 [facility] Comment on above: Performed By: #### C MP ####[facility] Emdscovags8530[address] [place], [place] [address]Dr. Erica Abarca Globulin (S) [Mass/Vol] 4.0 g/dL Normal [facility] Comment on above: Performed By: #### C MP ####[facility] Yxjaijuqqq2080 [place] [address]Dr. Shiraemilia Abarca Glucose [Mass/Vol] 141 mg/dL Critically high 74-[address] [facility] Comment on above: Performed By: #### C MP ####[facility] Kpclszvsyg3311 [place] [address]Dr. Erica Abarca Potassium [Moles/Vol] 3.7 mmol/L Normal 3.5-5.1 [facility] Comment on above: Performed By: #### C MP ####[facility] Rzpcgmegfl46[address] [place], [place] [address]Dr. Erica Abarca Protein [Mass/Vol] 6.8 g/dL Normal 6.4-8.2 [facility] Comment on above: Performed By: #### C MP ####[facility] Qjwsxmrkhy8040[address] [place], [place] [address]Dr. Erica Abarca Sodium [Moles/Vol] 137 mmol/L Normal 136-145 [facility] Comment on above: Performed By: #### C MP ####[facility] Bggqgftqke4713[address] [place], [place] [address]Dr. Erica Abarca Urea nitrogen [Mass/Vol] 17.0 mg/dL Normal 7.0-18.0 [facility] Comment on above: Performed By: #### C MP ####[facility] Gxcxwvymlq925[address] [place], [place] [address]Dr. Erica Abarca Urea nitrogen/Creatinine [Mass ratio] 14.7 mg/mg Normal [facility] Comment on above: Performed By: #### C MP ####[facility] Rvpcngwhtu1701[address] [place], [place] [address]Dr. Erica Abarca VANCOMYCIN TROUGHon 04-05-20 VANCOMYCIN TROUGH 42.8 ug/ml Critically high 5.0-20.0 [facility] Comment on above: Performed By: #### V ANCT ####[facility] Jivrbhhtjm[address] [place], [place] [address]Dr. Erica Abarca CBC AUTO DIFFon 04-04-2022 BASO # 0.1 103/ul Normal 0.0-0.1 [facility] Comment on above: Performed By: #### C BC ####[facility] Amzmpcmouz8410[address] [place], [place] [address]Dr. Erica Tevin Basophils/100 WBC (Bld) 0.8 % Normal 0.2-2.0 [facility] Comment on above: Performed By: #### C BC ####[facility] Dopfvdvwsc557[address] [place], [place] [address]Dr. Erica Abarca EO # 0.3 103/ul Normal 0.0-0.7 [facility] Comment on above: Performed By: #### C BC ####[facility] Yiahkpxtct570[address] [place], [place] [address]Dr. Shiraemilia Abarca Eosinophils/100 WBC (Bld) 4.8 % Normal 0.9-7.0 [facility] Comment on above: Performed By: #### C BC ####[facility] Hdrmapfbio4512[address] [place], [place] [address]Dr. Erica Abarca Erythrocyte distribution width (RBC) [Ratio] 16.4 % Critically high 11.0-15.0 [facility] Comment on above: Performed By: #### C BC ####[facility] Xabxnocien488[address] [place], [place] [address]Dr. Erica Tevin Hematocrit (Bld) [Volume fraction] 29.5 % Critically low 42.0-54.0 [facility] Comment on above: Performed By: #### C BC ####[facility] Ecmcqrexad130672 [address] [place], [place] [address]Dr. Erica Abarca Hemoglobin (Bld) [Mass/Vol] 8.7 g/dL Critically low 14.0-18.0 [facility] Comment on above: Performed By: #### C BC ####[facility] Xfocfrfoex179272 [address] [place], [place] [address]Dr. Erica Abarca IG # 0.01 10e3/ul Normal 0.00-0.03 [facility] Comment on above: Performed By: #### C BC ####[facility] Xcrrjennqg165172 [address] [place], [place] [address]Dr. Erica Abarca IG % 0.2 % Normal 0.0-0.5 [facility] Comment on above: Performed By: #### C BC ####[facility] Ylpeomwidj4283 [place] [address]DrCandi Abarca LYMPH # 1.0 103/ul Critically low 1.2-3.8 [facility] Comment on above: Performed By: #### C BC ####[facility] Fbhrgufscw4484 [place] [address]DrCandi Abarca Lymphocytes/100 WBC (Bld) 17.2 % Critically low 20.5-60.0 [facility] Comment on above: Performed By: #### C BC ####[facility] Szbyoayhpx[address] [place], [place] [address]DrCandi Abarca MANUAL DIFF REQ NO Normal [facility] Comment on above: Performed By: #### C BC ####[facility] Smwbkvsmly28[address] [place], [place] [address]DrCandi Abarca MCH (RBC) [Entitic mass] 24.3 pg Critically low 25.9-34.0 [facility] Comment on above: Performed By: #### C BC ####[facility] Ppucybdzfs260[address] [place], [place] [address]Dr. Erica Abarca MCHC (RBC) [Mass/Vol] 29.5 g/dL Critically low 29.9-35.2 [facility] Comment on above: Performed By: #### C BC ####[facility] Xpjlwwjtqz444[address] [place], [place] [address]DrCandi Abarca MCV (RBC) [Entitic vol] 82.4 fL Normal 80.0-94.0 [facility] Comment on above: Performed By: #### C BC ####[facility] Fjzctwinim533[address] [place], [place] [address]DrCandi Abarca MONO # 0.5 103/ul Normal 0.3-0.8 [facility] Comment on above: Performed By: #### C BC ####[facility] Wtavxhmmqg8449[address] [place], [place] [address]DrCandi Abarca Monocytes/100 WBC (Bld) 8.1 % Normal 1.7-12.0 [facility] Comment on above: Performed By: #### C BC ####[facility] Jcemyruler9792 [place] [address]Dr. Erica Abarca NEUT # 4.2 103/ul Normal 1.4-6.5 [facility] Comment on above: Performed By: #### C BC ####[facility] Spakvpthlj1978 [place] [address]Dr. Erica Abarca Neutrophils/100 WBC (Bld) 68.9 % Normal 43.0-75.0 [facility] Comment on above: Performed By: #### C BC ####[facility] Vbewzbikxw2680 [place] [address]Dr. Erica Abarca Platelet mean volume (Bld) [Entitic vol] 8.5 fL Critically low 9.5-13.5 [facility] Comment on above: Performed By: #### C BC ####[facility] Cwgtdccyaa3392 [place] [address]Dr. Erica Abarca PLT 232 103/ul Normal 150-450 [facility] Comment on above: Performed By: #### C BC ####[facility] Ndhitbudhp717[address] [place], [place] [address]Dr. Erica Abarca RBC 3.58 106/ul Critically low 4.70-6.10 [facility] Comment on above: Performed By: #### C BC ####[facility] Vmltitnkiq9502 [place] [address]Dr. Erica Abarca WBC 6.1 103/ul Normal 4.0-11.0 [facility] Comment on above: Performed By: #### C BC ####[facility] Kzdqktizwg9822 [place] [address]Dr. Erica Abarca ECHOCARDIO M/2D COMPLETEon 1 06-04-2021 ECHOCARDIO M/2D COMPLETE Normal [facility] POINT OF CARE GLUCOSEon 11-0 Glucose [Mass/Vol] 150 mg/dL Critically high 74-[address] [facility] Comment on above: Performed By: #### P OCGLUC ####[facility] Icvfobexsg8163 [place] [id number]. Erica Abarca Glucose [Mass/Vol] 125 mg/dL Critically high 74-106 [facility] Comment on above: Performed By: #### P OCGLUC ####[facility] Nabnabijxd6865 [place] [id number]. Erica Abarca Glucose [Mass/Vol] 110 mg/dL Critically high 74-106 [facility] Comment on above: Performed By: #### P OCGLUC ####[facility] Mxowejqasn9826 [place] [address]Dr. Erica Abarca PROF 14(COMP METB)on 022 Albumin [Mass/Vol] 2.7 g/dL Critically low 3.4-5.0 Th [facility] Comment on above: Performed By: #### C MP ####[facility] Tnvrywyreg6366 [place] [address]Dr. Erica Abarca Albumin/Globulin [Mass ratio] 0.7 {ratio} Normal [facility] Comment on above: Performed By: #### C MP ####[facility] Iupcrfzncw3865 [place] [address]Dr. Erica Abarca ALP [Catalytic activity/Vol] 71 U/L Normal 46-116 [facility] Comment on above: Performed By: #### C MP ####[facility] Sverqeyxms4252 [place] [address]Dr. Erica Abarca ALT [Catalytic activity/Vol] 13 U/L Critically low 16-63 [facility] Comment on above: Performed By: #### C MP ####[facility] Bbjdiupqsk4513 [place] [address]Dr. Erica Abarca Anion gap [Moles/Vol] 9.1 mmol/L Normal [facility] Comment on above: Performed By: #### C MP ####[facility] Srhfpimass3918 [place] [address]Dr. Erica Abarca AST [Catalytic activity/Vol] 19 U/L Normal 15-37 [facility] Comment on above: Performed By: #### C MP ####[facility] Kwspyivwgx4588 [place] [id number]. Erica Abarca Bilirubin [Mass/Vol] 0.6 mg/dL Normal 0.2-1.0 [facility] Comment on above: Performed By: #### C MP ####[facility] Meqeqlfkik2768 [place] [id number]. Erica Abarca Calcium [Mass/Vol] 8.7 mg/dL Normal 8.5-10.1 [facility] Comment on above: Performed By: #### C MP ####[facility] Xiajdcowjr1153 [place] [phone]. Erica Abarca Chloride [Moles/Vol] 103 mmol/L Normal 98-107 [facility] Comment on above: Performed By: #### C MP ####[facility] Dlgoyytibe316[address] [place], [place] [address]Dr. Erica Abarca CO2 [Moles/Vol] 30.8 mmol/L Normal 21.0-32.0 [facility] Comment on above: Performed By: #### C MP ####[facility] Cjkngpxrbt[address] [place], [place] [id number]. Erica Abarca Creatinine [Mass/Vol] 1.25 mg/dL Normal 0.70-1.30 [facility] Comment on above: Performed By: #### C MP ####[facility] Oelmcbdjby1045 [place] [id number]. Erica Tevin EGFR-AF AUSTRIAN >60 Normal >=60 [facility] Comment on above: Performed By: #### C MP ####[facility] Fyvlwcxmvl60[address] [place], [place] [address]Dr. Erica Tevin EGFR-NON AF AUSTRIAN 59 mL/min/1.73m2 Critically low >=60 [facility] Comment on above: Performed By: #### C MP ####[facility] Sfornbudoa668[address] [place], [place] [address]Dr. Erica Tevin Globulin (S) [Mass/Vol] 3.8 g/dL Normal [facility] Comment on above: Performed By: #### C MP ####[facility] Gpzdhjldfs5481 [place] [address]Dr. Erica Abarca Glucose [Mass/Vol] 111 mg/dL Critically high 74-106 [facility] Comment on above: Performed By: #### C MP ####[facility] Cgrwsakucp4848 [place] [address]Dr. Erica Abarca Potassium [Moles/Vol] 3.9 mmol/L Normal 3.5-5.1 [facility] Comment on above: Performed By: #### C MP ####[facility] Mexnbmqdim2004 [place] [address]Dr. Erica Abarca Protein [Mass/Vol] 6.5 g/dL Normal 6.4-8.2 [facility] Comment on above: Performed By: #### C MP ####[facility] Djzwkyvjii0055[address] [place], [place] [address]Dr. Erica Abarca Sodium [Moles/Vol] 139 mmol/L Normal 136-145 [facility] Comment on above: Performed By: #### C MP ####[facility] Molgazomvt439[address] [place], [place] [address]Dr. Erica Abarca Urea nitrogen [Mass/Vol] 17.0 mg/dL Normal 7.0-18.0 [facility] Comment on above: Performed By: #### C MP ####[facility] Eqrdtaordq083172 [address] [place], [place] [address]Dr. Erica Abarca Urea nitrogen/Creatinine [Mass ratio] 13.6 mg/mg Normal [facility] Comment on above: Performed By: #### C MP ####[facility] Pnrzblzpmb0268 [place] [address]Dr. Erica Tevin CBC AUTO DIFFon 04-03-2022 BASO # 0.0 103/ul Normal 0.0-0.1 [facility] Comment on above: Performed By: #### C BC ####[facility] Ggejqvfxof2134 [place] [address]Dr. Erica Tevin Basophils/100 WBC (Bld) 0.5 % Normal 0.2-2.0 [facility] Comment on above: Performed By: #### C BC ####[facility] Hjtcynmirc7702 [place] [phone]. Erica Abarca EO # 0.3 103/ul Normal 0.0-0.7 [facility] Comment on above: Performed By: #### C BC ####[facility] Ncppylgneb1983 [place] [phone]. Erica Abarca Eosinophils/100 WBC (Bld) 4.9 % Normal 0.9-7.0 [facility] Comment on above: Performed By: #### C BC ####[facility] Qrpizxjafr4230[address] [place], [place] [address]Dr. Erica Abarca Erythrocyte distribution width (RBC) [Ratio] 16.2 % Critically high 11.0-15.0 [facility] Comment on above: Performed By: #### C BC ####[facility] Jcpeieuscx2425[address] [place], [place] [address]Dr. Erica Abarca Hematocrit (Bld) [Volume fraction] 28.9 % Critically low 42.0-54.0 [facility] Comment on above: Performed By: #### C BC ####[facility] Hmhbjbetpy822[address] [place], [place] [address]Dr. Erica Abarca Hemoglobin (Bld) [Mass/Vol] 8.6 g/dL Critically low 14.0-18.0 [facility] Comment on above: Performed By: #### C BC ####[facility] Gzmlvjufpe213[address] [place], [place] [address]Dr. Erica Abarca IG # 0.02 10e3/ul Normal 0.00-0.03 [facility] Comment on above: Performed By: #### C BC ####[facility] Hofdgdmhbq7566 [place] [address]Dr. Erica Abarca IG % 0.3 % Normal 0.0-0.5 [facility] Comment on above: Performed By: #### C BC ####[facility] Pisvqxdqpn840[address] [place], [place] [address]Dr. Erica Abarca LYMPH # 0.9 103/ul Critically low 1.2-3.8 [facility] Comment on above: Performed By: #### C BC ####[facility] Rqgmrmzazx4278 [place] [phone]. Shiraemilia Abarca Lymphocytes/100 WBC (Bld) 15.4 % Critically low 20.5-60.0 [facility] Comment on above: Performed By: #### C BC ####[facility] Cscabhpzne0274 [place] [address]Dr. Erica Abarca MANUAL DIFF REQ NO Normal [facility] Comment on above: Performed By: #### C BC ####[facility] Wwtrivphzc348[address] [place], [place] [address]Dr. Erica Abarca MCH (RBC) [Entitic mass] 24.3 pg Critically low 25.9-34.0 [facility] Comment on above: Performed By: #### C BC ####[facility] Dymbawjktm73[address] [place], [place] [address]Dr. Erica Abarca MCHC (RBC) [Mass/Vol] 29.8 g/dL Critically low 29.9-35.2 [facility] Comment on above: Performed By: #### C BC ####[facility] Bjuvzjsuel9[address] [place], [place] [address]Dr. Shiraemilia Abarca MCV (RBC) [Entitic vol] 81.6 fL Normal 80.0-94.0 [facility] Comment on above: Performed By: #### C BC ####[facility] Cokaryhvhf036[address] [place], [place] [address]Dr. Erica Abarca MONO # 0.5 103/ul Normal 0.3-0.8 [facility] Comment on above: Performed By: #### C BC ####[facility] Paqsfjyuoc08[address] [place], [place] [address]Dr. Erica Abarca Monocytes/100 WBC (Bld) 8.0 % Normal 1.7-12.0 [facility] Comment on above: Performed By: #### C BC ####[facility] Zbbkbnkvwk169[address] [place], [place] [address]Dr. Erica Abarca NEUT # 4.2 103/ul Normal 1.4-6.5 [facility] Comment on above: Performed By: #### C BC ####[facility] Zzzlmsfwak0824 [place] [address]Dr. Erica Abarca Neutrophils/100 WBC (Bld) 70.9 % Normal 43.0-75.0 [facility] Comment on above: Performed By: #### C BC ####[facility] Yvkhlfxatv6737 [place] [address]Dr. Erica Abarca Platelet mean volume (Bld) [Entitic vol] 8.4 fL Critically low 9.5-13.5 [facility] Comment on above: Performed By: #### C BC ####[facility] Alanfnertu4352 [place] [address]Dr. Erica Abarca PLT 227 103/ul Normal 150-450 [facility] Comment on above: Performed By: #### C BC ####[facility] Muhwyffuzd0372 [place] [address]Dr. Erica Abarca RBC 3.54 106/ul Critically low 4.70-6.10 [facility] Comment on above: Performed By: #### C BC ####[facility] Kabejbkerb0387 [place] [address]Dr. Erica Abarca WBC 5.9 103/ul Normal 4.0-11.0 [facility] Comment on above: Performed By: #### C BC ####[facility] Ztcyonitri8626 [place] [address]Dr. Erica Abarca OCC BLD IMMUNOASSAYon 2021 OCCULT BLOOD Negative Normal NEGATIVE [facility] Comment on above: Performed By: #### O WINIFRED ####[facility] Johawjtafi2064 [place] [id number]. Erica Abarca POINT OF CARE GLUCOSEon Glucose [Mass/Vol] 159 mg/dL Critically high 74-106 [facility] Comment on above: Performed By: #### P OCGLUC ####[facility] Mryyjgyioo4790 [place] [id number]. Erica Abarca Glucose [Mass/Vol] 94 mg/dL Normal 74-106 [facility] Comment on above: Performed By: #### P OCGLUC ####[facility] Ahkphlayde2352 [place] [address]Dr. Erica Abarca Glucose [Mass/Vol] 109 mg/dL Critically high 74-106 [facility] Comment on above: Performed By: #### P OCGLUC ####[facility] Etwzmxcyrz8345 [place] [address]Dr. Erica Abarca Glucose [Mass/Vol] 110 mg/dL Critically high 74-106 [facility] Comment on above: Performed By: #### P OCGLUC ####[facility] Hnzpptwhdg8646 [place] [address]Dr. Erica Abarca PROF 14(COMP METB)on 022 Albumin [Mass/Vol] 2.7 g/dL Critically low 3.4-5.0 [facility] Comment on above: Performed By: #### C MP ####[facility] Gooqdvsizj69[address] [place], [place] [address]Dr. Erica Abarca Albumin/Globulin [Mass ratio] 0.7 {ratio} Normal [facility] Comment on above: Performed By: #### C MP ####[facility] Qzuwrnemkx847172 [address] [place], [place] [address]Dr. Erica Abarca ALP [Catalytic activity/Vol] 80 U/L Normal 46-116 [facility] Comment on above: Performed By: #### C MP ####[facility] Qyrbzqhnvf35[address] [place], [place] [address]Dr. Erica Abarca ALT [Catalytic activity/Vol] 15 U/L Critically low 16-63 [facility] Comment on above: Performed By: #### C MP ####[facility] Wtttsiumue469[address] [place], [place] [address]Dr. Erica Abarca Anion gap [Moles/Vol] 6.9 mmol/L Normal [facility] Comment on above: Performed By: #### C MP ####[facility] Vcqzjxvehx23[address] [place], [place] [address]Dr. Erica Abarca AST [Catalytic activity/Vol] 18 U/L Normal 15-37 [facility] Comment on above: Performed By: #### C MP ####[facility] Gtkaqwvura1231 [place] [address]Dr. Erica Abarca Bilirubin [Mass/Vol] 0.6 mg/dL Normal 0.2-1.0 [facility] Comment on above: Performed By: #### C MP ####[facility] Wovjoljhee5527 [place] [address]Dr. Erica Abarca Calcium [Mass/Vol] 8.7 mg/dL Normal 8.5-10.1 [facility] Comment on above: Performed By: #### C MP ####[facility] Dbbnkslgtx7035 [place] [address]Dr. Erica Abarca Chloride [Moles/Vol] 102 mmol/L Normal 98-107 [facility] Comment on above: Performed By: #### C MP ####[facility] Scwwnhpnzc2099[address] [place], [place] [address]Dr. Erica Abarca CO2 [Moles/Vol] 31.0 mmol/L Normal 21.0-32.0 [facility] Comment on above: Performed By: #### C MP ####[facility] Cnfaguzqsd925[address] [place], [place] [address]Dr. Erica Abarca Creatinine [Mass/Vol] 1.18 mg/dL Normal 0.70-1.30 [facility] Comment on above: Performed By: #### C MP ####[facility] Ktodusqxib24[address] [place], [place] [address]Dr. Erica Abarca EGFR-AF AUSTRIAN >60 Normal >=60 [facility] Comment on above: Performed By: #### C MP ####[facility] Robehlgqvh15[address] [place], [place] [address]Dr. Erica Abarca EGFR-NON AF AUSTRIAN >60 Normal >=60 [facility] Comment on above: Performed By: #### C MP ####[facility] Ymdwhnxdvo[address] [place], [place] [address]Dr. Erica Abarca Globulin (S) [Mass/Vol] 3.8 g/dL Normal [facility] Comment on above: Performed By: #### C MP ####[facility] Dswhwssrcz0304 [place] [address]Dr. Erica Abarca Glucose [Mass/Vol] 129 mg/dL Critically high 74-[address] [facility] Comment on above: Performed By: #### C MP ####[facility] Bypqpewuad1555 [place] [address]Dr. Erica Abarca Potassium [Moles/Vol] 3.9 mmol/L Normal 3.5-5.1 [facility] Comment on above: Performed By: #### C MP ####[facility] Qozwgudaxi1046 [place] [address]Dr. Erica Abarca Protein [Mass/Vol] 6.5 g/dL Normal 6.4-8.2 [facility] Comment on above: Performed By: #### C MP ####[facility] Uoykugzlza198[address] [place], [place] [address]Dr. Erica Abarca Sodium [Moles/Vol] 136 mmol/L Normal 136-145 [facility] Comment on above: Performed By: #### C MP ####[facility] Gsjwrvvdcm146[address] [place], [place] [address]Dr. Erica Abarca Urea nitrogen [Mass/Vol] 19.0 mg/dL Critically high 7.0-18.0 [facility] Comment on above: Performed By: #### C MP ####[facility] Znsjppkogs60[address] [place], [place] [address]Dr. Erica Abarca Urea nitrogen/Creatinine [Mass ratio] 16.1 mg/mg Normal [facility] Comment on above: Performed By: #### C MP ####[facility] Pxjfkveszz2675 [place] [address]Dr. Erica Tevin VANCOMYCIN TROUGHon 04-03-20 22 VANCOMYCIN TROUGH 16.6 ug/ml Normal 5.0-20.0 [facility] Comment on above: Performed By: #### V ANCT ####[facility] Qzktjhcowx8805 [place] [address]Dr. Erica Tevin CARDIAC KEIKO 3-6on 2 CK [Catalytic activity/Vol] 150 U/L Normal 39-308 [facility] Comment on above: Performed By: #### C MREP ####[facility] Zvraoufobb5117 [place] [id number]. Erica Tevin CK.MB [Mass/Vol] 1.73 ng/mL Normal <=3.60 [facility] Comment on above: Performed By: #### C MREP ####[facility] Dzvtvwkkod6025 [place] [address]Dr. Erica Abarca HSTROP 36.3 pg/mL Normal 4.0-76.1 [facility] Comment on above: Result Comment: CUT- OFF POINTS HAVE BEEN ESTABLISHED BASED ON THE FOURTH UNIVERSAL DEFINITIONS OF MYOCARDIALINFARCTION. THE UPPER REFERENCE LIMIT (URL) OF TROPONIN, DEFINED THE 99TH PERCENTILE OFcTnI DISTRIBUTION IN A REFERENCE POPULATION, HAS BEEN CONFIRMED THE DECISION THRESHOLDFOR NM DIAGNOSIS. Performed By: #### C MREP ####[facility] Jbmbgbgzzb307[address] [place], [place] [address]Dr. Shiraemilia Abarca CBC AUTO DIFFon 04-02-2022 BASO # 0.0 103/ul Normal 0.0-0.1 [facility] Comment on above: Performed By: #### C BC ####[facility] Frgxgfwzwf087[address] [place], [place] [address]Dr. Shiraemilia Abarca Basophils/100 WBC (Bld) 0.4 % Normal 0.2-2.0 [facility] Comment on above: Performed By: #### C BC ####[facility] Ernrlzeuni312[address] [place], [place] [address]Dr. Shiraemilia Abarca EO # 0.2 103/ul Normal 0.0-0.7 [facility] Comment on above: Performed By: #### C BC ####[facility] Ploeskbwra296[address] [place], [place] [address]Dr. Shiraemilia Abarca Eosinophils/100 WBC (Bld) 3.0 % Normal 0.9-7.0 [facility] Comment on above: Performed By: #### C BC ####[facility] Dqltramteu534[address] [place], [place] [address]Dr. Erica Abarca Erythrocyte distribution width (RBC) [Ratio] 16.0 % Critically high 11.0-15.0 [facility] Comment on above: Performed By: #### C BC ####[facility] Wweskfiijj2549 [place] [address]Dr. Erica Abarac Hematocrit (Bld) [Volume fraction] 29.5 % Critically low 42.0-54.0 [facility] Comment on above: Performed By: #### C BC ####[facility] Ggngqvmifq0183 [place] [address]DrCandi Abarca Hemoglobin (Bld) [Mass/Vol] 8.7 g/dL Critically low 14.0-18.0 [facility] Comment on above: Performed By: #### C BC ####[facility] Lcfpqdavjb135[address] [place], [place] [address]DrCandi Abarca IG # 0.04 10e3/ul Critically high 0.00-0.03 [facility] Comment on above: Performed By: #### C BC ####[facility] Soysvqcjhf7044 [place] [address]Dr. Erica Abarca IG % 0.7 % Critically high 0.0-0.5 [facility] Comment on above: Performed By: #### C BC ####[facility] Bpwlayjbxn467[address] [place], [place] [address]DrCandi Abarca LYMPH # 1.0 103/ul Critically low 1.2-3.8 [facility] Comment on above: Performed By: #### C BC ####[facility] Upbblqzpjf55[address] [place], [place] [address]DrCandi Abarca Lymphocytes/100 WBC (Bld) 17.4 % Critically low 20.5-60.0 [facility] Comment on above: Performed By: #### C BC ####[facility] Ejxsgjczsa18[address] [place], [place] [address]DrCandi Abarca MANUAL DIFF REQ NO Normal [facility] Comment on above: Performed By: #### C BC ####[facility] Nwbidszhur5148 [place] [address]DrCandi Abarca MCH (RBC) [Entitic mass] 23.9 pg Critically low 25.9-34.0 [facility] Comment on above: Performed By: #### C BC ####[facility] Dmnobtpvwa4472 [place] [id number]. Erica Abarca MCHC (RBC) [Mass/Vol] 29.5 g/dL Critically low 29.9-35.2 [facility] Comment on above: Performed By: #### C BC ####[facility] Shgbrrqrrf9211 [place] [id number]. Erica Abarca MCV (RBC) [Entitic vol] 81.0 fL Normal 80.0-94.0 [facility] Comment on above: Performed By: #### C BC ####[facility] Xbdfmtunkd2340[address] [place], [place] [address]DrCandi Abarca MONO # 0.4 103/ul Normal 0.3-0.8 [facility] Comment on above: Performed By: #### C BC ####[facility] Szyysreafh6586 [place] [address]Dr. Erica Abarca Monocytes/100 WBC (Bld) 7.7 % Normal 1.7-12.0 [facility] Comment on above: Performed By: #### C BC ####[facility] Gxunssxdyb8[address] [place], [place] [address]Dr. Erica Abarca NEUT # 4.0 103/ul Normal 1.4-6.5 [facility] Comment on above: Performed By: #### C BC ####[facility] Cibrnepewb532[address] [place], [place] [address]Dr. Erica Abarca Neutrophils/100 WBC (Bld) 70.8 % Normal 43.0-75.0 [facility] Comment on above: Performed By: #### C BC ####[facility] Udtkivkyer100[address] [place], [place] [address]DrCandi Abarca Platelet mean volume (Bld) [Entitic vol] 8.3 fL Critically low 9.5-13.5 [facility] Comment on above: Performed By: #### C BC ####[facility] Kdfmzoobsg08[address] [place], [place] [address]Dr. Erica Abarca PLT 236 103/ul Normal 150-450 [facility] Comment on above: Performed By: #### C BC ####[facility] Wmutfilkea9293 [place] [id number]. Erica Abarca RBC 3.64 106/ul Critically low 4.70-6.10 [facility] Comment on above: Performed By: #### C BC ####[facility] Qpvorkhirx6272 [place] [id number]. Erica Abarca WBC 5.6 103/ul Normal 4.0-11.0 [facility] Comment on above: Performed By: #### C BC ####[facility] Mwdpgchydn9722 [place] [address]Dr. Erica Abarca GLYCOHEMOGLOBIN A1Con 2021 ADA RECOMMENDATION SEE BELOW Normal [facility] Comment on above: Result Comment: ADA RECOMMENDED LIMIT 4.0 - 6.0 ADA THERAPEUTIC TARGET < 7.0 ACTION SUGGESTED > 7.0 Performed By: #### A 1C ####[facility] Hhnmovnoof635[address] [place], [place] [address]Dr. Erica Abarca Glucose [Mass/Vol] 186 mg/dL Normal [facility] Comment on above: Performed By: #### A 1C ####[facility] Mszmevuzkg96[address] [place], [place] [address]Dr. Erica Abarca HbA1c (Bld) [Mass fraction] 8.1 % Critically high 4.5-6.2 [facility] Comment on above: Performed By: #### A 1C ####[facility] Vijuqtajio[address] [place], [place] [address]Dr. Erica Abarca LIPID PROFILEon 04-02-2022 CHOL-HDL RATIO NORM SEE BELOW Normal [facility] Comment on above: Result Comment: 3.3 - 4.4 LOW RISK 4.4 - 7.1 AVERAGE RISK 7.1 - 11.0 MODERATE RISK >11.0 HIGH RISK Performed By: #### L IPID ####[facility] Qciscyoazz3938 [place] [address]Dr. Erica Abarca Cholesterol [Mass/Vol] 115 mg/dL Normal <=200 [facility] Comment on above: Performed By: #### L IPID ####[facility] Eulusgktlf0927 [place] [id number]. Erica Abarca Cholesterol in HDL [Mass/Vol] 24 mg/dL Critically low 40-60 [facility] Comment on above: Performed By: #### L IPID ####[facility] Ysbpdplebk8157 [place] [address]Dr. Erica Abarca Cholesterol in LDL [Mass/Vol] 64.6 mg/dL Normal [facility] Comment on above: Performed By: #### L IPID ####[facility] Comhoeodoy4867 [place] [address]Dr. Erica Abarca Cholesterol.total/Chol esterol in HDL [Mass ratio] 4.8 {ratio} Normal [facility] Comment on above: Performed By: #### L IPID ####[facility] Qksqhixprg0901 [place] [address]Dr. Erica Abarca HDL NORMAL > or = 60 mg/dl - LOW CARDIOVASCULAR RISK <40 mg/dl - HIGH CARDIOVASCULAR RISK Normal [facility] Comment on above: Performed By: #### L IPID ####[facility] Eybvwupzvz[address] [place], [place] [address]Dr. Erica Abarca LDL CALC NORMAL SEE BELOW Normal [facility] Comment on above: Result Comment: <100 mg/dl OPTIMAL 100 - 129 mg/dl NEAR OR ABOVE OPTIMAL 130 - 159 mg/dl BORDERLINE HIGH 160 - 189 mg/dl HIGH >190 mg/dl VERY HIGH Performed By: #### L IPID ####[facility] Vwfxkwtrhd0551 [place] [id number]. Erica Abarca Triglyceride [Mass/Vol] 132 mg/dL Normal <=150 [facility] Comment on above: Performed By: #### L IPID ####[facility] Whrhteqfaj2822 [place] [address]Dr. Erica Abarca VLDL CALC 26.4 mg/dL Normal [facility] Comment on above: Performed By: #### L IPID ####[facility] Kxuwxnfdam6864 [place] [address]Dr. Erica Abarca POINT OF CARE GLUCOSEon 11-0 5-2022 Glucose [Mass/Vol] 170 mg/dL Critically high 74-106 [facility] Comment on above: Performed By: #### P OCGLUC ####[facility] Tmkqlalbww3103 [place] [address]Dr. Erica Abarca Glucose [Mass/Vol] 252 mg/dL Critically high 74-106 [facility] Comment on above: Performed By: #### P OCGLUC ####[facility] Rzmlwwoxup[address] [place] [address]Dr. Erica Abarca Glucose [Mass/Vol] 217 mg/dL Critically high -106 [facility] Comment on above: Performed By: #### P OCGLUC ####[facility] Ypqstsculn[address] [place] [address]Dr. Erica Abarca Glucose [Mass/Vol] 87 mg/dL Normal 74-106 [facility] Comment on above: Performed By: #### P OCGLUC ####[facility] Jexqoiamyp[address] [place] [address]Dr. Shiraemilia Abarca PROF 14(COMP METB)on 022 Albumin [Mass/Vol] 3.0 g/dL Critically low 3.4-5.0 [facility] Comment on above: Performed By: #### C MP ####[facility] Dwmmkyfcuf[address] [place] [address]Dr. Erica Tevin Albumin/Globulin [Mass ratio] 0.8 {ratio} Normal [facility] Comment on above: Performed By: #### C MP ####[facility] Gzwstdbmnw340[address] [place] [address]Dr. Erica Tevin ALP [Catalytic activity/Vol] 81 U/L Normal 46-116 [facility] Comment on above: Performed By: #### C MP ####[facility] Vkzfepgrzx[address] [place], [place] [address]Dr. Shiraemilia Tevin ALT [Catalytic activity/Vol] 16 U/L Normal 16-63 [facility] Comment on above: Performed By: #### C MP ####[facility] Cobgxxprop9[address] [place], [place] [address]Dr. Erica Abarca Anion gap [Moles/Vol] 6.7 mmol/L Normal [facility] Comment on above: Performed By: #### C MP ####[facility] Xtftfmuwia[address] [place], [place] [address]Dr. Erica Abarca AST [Catalytic activity/Vol] 23 U/L Normal 15-37 [facility] Comment on above: Performed By: #### C MP ####[facility] Zpviohbmkx432[address] [place], [place] [address]Dr. Erica Abarca Bilirubin [Mass/Vol] 0.8 mg/dL Normal 0.2-1.0 [facility] Comment on above: Performed By: #### C MP ####[facility] Igmopabkne[address] [place], [place] [address]Dr. Erica Abarca Calcium [Mass/Vol] 8.8 mg/dL Normal 8.5-10.1 [facility] Comment on above: Performed By: #### C MP ####[facility] Ejzsxykqrl[address] [place], [place] [address]Dr. Erica Abarca Chloride [Moles/Vol] 102 mmol/L Normal 98-107 [facility] Comment on above: Performed By: #### C MP ####[facility] Lodgtfcrhj[address] [place], [place] [address]Dr. Erica Abarca CO2 [Moles/Vol] 29.9 mmol/L Normal 21.0-32.0 [facility] Comment on above: Performed By: #### C MP ####[facility] Zszqhkgmxq[address] [place], [place] [address]Dr. Erica Tevin Creatinine [Mass/Vol] 1.25 mg/dL Normal 0.70-1.30 [facility] Comment on above: Performed By: #### C MP ####[facility] Yqfyheepmu103[address] [place], [place] [address]Dr. Erica Tevin EGFR-AF AUSTRIAN >60 Normal >=60 [facility] Comment on above: Performed By: #### C MP ####[facility] Nzitwehtyf[address] [place], [place] [address]Dr. Erica Abarca EGFR-NON AF AUSTRIAN 59 mL/min/1.73m2 Critically low >=60 [facility] Comment on above: Performed By: #### C MP ####[facility] Hcb[address]ckdhvu[address] [place] [address]Dr. Erica Abarca Globulin (S) [Mass/Vol] 3.8 g/dL Normal [facility] Comment on above: Performed By: #### C MP ####[facility] Qgdboutomy9405 [place] [address]Dr. Erica Abarca Glucose [Mass/Vol] 78 mg/dL Normal 74-106 [facility] Comment on above: Performed By: #### C MP ####[facility] Jfgrpptcsc6095 [place] [address]Dr. Erica Abarca Potassium [Moles/Vol] 3.6 mmol/L Normal 3.5-5.1 [facility] Comment on above: Performed By: #### C MP ####[facility] Ggoocavokm[address] [place], [place] [address]Dr. Erica Abarca Protein [Mass/Vol] 6.8 g/dL Normal 6.4-8.2 [facility] Comment on above: Performed By: #### C MP ####[facility] Ckkwbnfqtr[address] [place], [place] [address]Dr. Erica Abarca Sodium [Moles/Vol] 135 mmol/L Critically low 136-145 [facility] Comment on above: Performed By: #### C MP ####[facility] Nmhuixdaxa[address] [place], [place] [address]Dr. Erica Abarca Urea nitrogen [Mass/Vol] 18.0 mg/dL Normal 7.0-18.0 [facility] Comment on above: Performed By: #### C MP ####[facility] Qyoojnptfv100[address] [place], [place] [address]Dr. Erica Abarca Urea nitrogen/Creatinine [Mass ratio] 14.4 mg/mg Normal [facility] Comment on above: Performed By: #### C MP ####[facility] Wucwlrspdq[address] [place], [place] [address]Dr. Erica Abarca US KAYLIN DOP LEG BILon 022 US KAYLIN DOP LEG BRYCE Normal [facility] BNPon 04-01-2022 Natriuretic peptide B (Bld) [Mass/Vol] 2249.0 pg/mL Critically high <=900.0 [facility] Comment on above: Performed By: #### C MADM, CMP, CRP, BNP ####[facility] Vxaudfkbdq[address] [place] [address]DrCandi Erica Abarca CARDIAC KEIKO 3-6on 2 CK [Catalytic activity/Vol] 152 U/L Normal 39-308 [facility] Comment on above: Performed By: #### C MREP ####[facility] Lcpbfayuvv5348 [place] [address]DrCandi Erica Abarca CK.MB [Mass/Vol] 2.04 ng/mL Normal <=3.60 [facility] Comment on above: Performed By: #### C MREP ####[facility] Cufhyovbho[address] [place], [place] [address]DrCandi Erica Abarca HSTROP 36.3 pg/mL Normal 4.0-76.1 [facility] Comment on above: Result Comment: CUT- OFF POINTS HAVE BEEN ESTABLISHED BASED ON THE FOURTH UNIVERSAL DEFINITIONS OF MYOCARDIALINFARCTION. THE UPPER REFERENCE LIMIT (URL) OF TROPONIN, DEFINED THE 99TH PERCENTILE OFcTnI DISTRIBUTION IN A REFERENCE POPULATION, HAS BEEN CONFIRMED THE DECISION THRESHOLDFOR NM DIAGNOSIS. Performed By: #### C MREP ####[facility] Bqyccjfbwg[address] [place], [place] [address]DrCandi Erica Abarca CARDIAC KEIKO ADMITon 022 CK [Catalytic activity/Vol] 149 U/L Normal 39-308 [facility] Comment on above: Performed By: #### C MADM, CMP, CRP, BNP ####[facility] Bejkdmnymu57[address] [place] [address]DrCandi Erica Abarca CK.MB [Mass/Vol] 2.21 ng/mL Normal <=3.60 [facility] Comment on above: Performed By: #### C MADM, CMP, CRP, BNP ####[facility] Zzadymotxh44[address] [place] [address]Dr. Erica Abarca HSTROP 21.2 pg/mL Normal 4.0-76.1 [facility] Comment on above: Result Comment: CUT- OFF POINTS HAVE BEEN ESTABLISHED BASED ON THE FOURTH UNIVERSAL DEFINITIONS OF MYOCARDIALINFARCTION. THE UPPER REFERENCE LIMIT (URL) OF TROPONIN, DEFINED THE 99TH PERCENTILE OFcTnI DISTRIBUTION IN A REFERENCE POPULATION, HAS BEEN CONFIRMED THE DECISION THRESHOLDFOR NM DIAGNOSIS. Performed By: #### C MADM, CMP, CRP, BNP ####[facility] Xpvfeuhcgv9056 [place] [address]Dr. Erica Abarca NALLELY 171 ng/mL Critically high 16-96 [facility] Comment on above: Performed By: #### C MADM, CMP, CRP, BNP ####[facility] Jrpbyfkwbt7[address] [place] [address]Dr. Erica Abarca CBC AUTO DIFFon 04-01-2022 BASO # 0.0 103/ul Normal 0.0-0.1 [facility] Comment on above: Performed By: #### C BC ####[facility] Jwtuxsokpt075[address] [place] [address]Dr. Erica Abarca Basophils/100 WBC (Bld) 0.4 % Normal 0.2-2.0 [facility] Comment on above: Performed By: #### C BC ####[facility] Ayxbozckhs[address] [place], [place] [address]Dr. Erica Abarca EO # 0.1 103/ul Normal 0.0-0.7 [facility] Comment on above: Performed By: #### C BC ####[facility] Iljuhgcizd[address] [place] [address]Dr. Erica Abarca Eosinophils/100 WBC (Bld) 2.0 % Normal 0.9-7.0 [facility] Comment on above: Performed By: #### C BC ####[facility] Ospwaekgvi[address] [place], [place] [address]Dr. Erica Abarca Erythrocyte distribution width (RBC) [Ratio] 16.0 % Critically high 11.0-15.0 [facility] Comment on above: Performed By: #### C BC ####[facility] Pdjtkquwps9[address] [place] [address]Dr. Erica Abarca Hematocrit (Bld) [Volume fraction] 31.1 % Critically low 42.0-54.0 [facility] Comment on above: Performed By: #### C BC ####[facility] Ihqxfyrctd4643 [place] [address]Dr. Erica Abarca Hemoglobin (Bld) [Mass/Vol] 9.3 g/dL Critically low 14.0-18.0 [facility] Comment on above: Performed By: #### C BC ####[facility] Tltglfsuxp[address] [place], [place] [address]Dr. Erica Abarca IG # 0.03 10e3/ul Normal 0.00-0.03 [facility] Comment on above: Performed By: #### C BC ####[facility] Clywdhnitk[address] [place], [place] [address]Dr. Erica Abarca IG % 0.4 % Normal 0.0-0.5 [facility] Comment on above: Performed By: #### C BC ####[facility] Sszszcotqu[address] [place], [place] [address]Dr. Erica Abarca LYMPH # 1.0 103/ul Critically low 1.2-3.8 [facility] Comment on above: Performed By: #### C BC ####[facility] Jmyqzinjpa[address] [place], [place] [address]Dr. Erica Abarca Lymphocytes/100 WBC (Bld) 14.6 % Critically low 20.5-60.0 [facility] Comment on above: Performed By: #### C BC ####[facility] Yxqqremdmv[address] [place], [place] [address]Dr. Erica Abarca MANUAL DIFF REQ NO Normal [facility] Comment on above: Performed By: #### C BC ####[facility] Vbgjcdcebn[address] [place], [place] [address]Dr. Erica Abarca MCH (RBC) [Entitic mass] 24.4 pg Critically low 25.9-34.0 [facility] Comment on above: Performed By: #### C BC ####[facility] Xlnnwmmfcy2332 [place] [address]Dr. Erica Abarca MCHC (RBC) [Mass/Vol] 29.9 g/dL Normal 29.9-35.2 [facility] Comment on above: Performed By: #### C BC ####[facility] Yfomzvilwh6070 [place] [address]Dr. Erica Abarca MCV (RBC) [Entitic vol] 81.6 fL Normal 80.0-94.0 [facility] Comment on above: Performed By: #### C BC ####[facility] Jwsornregn6190 [place] [address]Dr. Erica Tevin MONO # 0.5 103/ul Normal 0.3-0.8 [facility] Comment on above: Performed By: #### C BC ####[facility] Gwctfpifnz6424 [place] [address]Dr. Erica Abarca Monocytes/100 WBC (Bld) 6.5 % Normal 1.7-12.0 [facility] Comment on above: Performed By: #### C BC ####[facility] [address]vvecz[address] [place], [place] [address]Dr. Erica Abarca NEUT # 5.2 103/ul Normal 1.4-6.5 [facility] Comment on above: Performed By: #### C BC ####[facility] Rmkjpxfxdg0507 [place] [address]Dr. Shiraemilia Abarca Neutrophils/100 WBC (Bld) 76.1 % Critically high 43.0-75.0 [facility] Comment on above: Performed By: #### C BC ####[facility] Kufueljfff4519 [place] [address]Dr. Erica Tevin Platelet mean volume (Bld) [Entitic vol] 8.4 fL Critically low 9.5-13.5 [facility] Comment on above: Performed By: #### C BC ####[facility] Oydmqqhjlx7944 [place] [address]Dr. Erica Abarca PLT 253 103/ul Normal 150-450 [facility] Comment on above: Performed By: #### C BC ####[facility] Zqjqlnwowp4916 [place], [place] [address]Uh. Erica Abarca RBC 3.81 106/ul Critically low 4.70-6.10 [facility] Comment on above: Performed By: #### C BC ####[facility] Tdcunzrfjw3496 [place], [place] [address]Kv. Erica Abarca WBC 6.9 103/ul Normal 4.0-11.0 [facility] Comment on above: Performed By: #### C BC ####[facility] Vhpxxkrlpz3593 [place] [address]Dr. Erica Abarca CRPon 04-01-2022 CRP 5.8 mg/dL Critically high <=1.0 [facility] Comment on above: Performed By: #### C MADM, CMP, CRP, BNP ####[facility] Qzufckaehf9831 [place] [address]Dr. Erica Abarca CULTURE BLOODon 04-01-2022 Microscopic examination of blood, culture Culture Observations: NO GROWTH AT 5 DAYS. Normal [facility] Comment on above: Performed By: #### B LDCX2 ####[facility] Jlvncujgor5175 [place] [address]Dr. Erica Abarca Performed By: #### B LDCX1 ####[facility] Dgmjantdas6722 [place] [address]Dr. Erica Abarca Covid-19 PCR (CVDTB)on SARS-CoV-2 (COVID-19) RNA REJI+probe Ql (Unsp spec) Not detected Normal NOT DETECTED [facility] Comment on above: Result Comment: When diagnostic testing is negative, the possibility of a false negative should be considered inthe context of a patient's recent exposures and the presence of clinical signs and symptomsconsistent with SARS-CoV-2.This test is not yet approved or cleared by the [place] FDA. When there are no FDA-approved or cleared tests available, and other criteria are met, FDA can make tests available under an emergency access mechanism called an Emergency Use Authorization (EUA). The EUA for this test is supported by the Film Editor of Health and Human Service's declaration that circumstances exist to justify the emergency use of in vitro diagnostics for the detection and/or diagnosis of the virus that causes COVID-19. This EUA will remain in effect for the duration of the COVID-19 declaration justifying emergency of IVDs, unless it is terminated or revoked by the FDA (after which the test may no longer be used). Performed By: #### C VDTBH ####[facility] Gecgvcmmpm[address] [place] [address]Dr. Erica Abarca LACTATE/LACTIC ACIDon 2021 Lactate [Moles/Vol] 3.0 mmol/L Critically high 0.4-1.9 [facility] Comment on above: Performed By: #### L ACT ####[facility] [address]ubdwccju[address] [place], [place] [address]Dr. Erica Abarca POINT OF CARE GLUCOSEon Glucose [Mass/Vol] 164 mg/dL Critically high 74-[address] [facility] Comment on above: Performed By: #### P OCGLUC ####[facility] Ozpqjpleqm[address] [place], [place] [address]Dr. Erica Abarca PROF 14(COMP METB)on 022 Albumin [Mass/Vol] 3.2 g/dL Critically low 3.4-5.0 [facility] Comment on above: Performed By: #### C MADM, CMP, CRP, BNP ####[facility] Vsrgggabjo0534 [place] [address]Dr. Erica Abarca Albumin/Globulin [Mass ratio] 0.8 {ratio} Normal [facility] Comment on above: Performed By: #### C MADM, CMP, CRP, BNP ####[facility] Ggjvevdasn[address] [place], [place] [address]Dr. Erica Abarca ALP [Catalytic activity/Vol] 102 U/L Normal 46-116 [facility] Comment on above: Performed By: #### C MADM, CMP, CRP, BNP ####[facility] Aaewxwumlg8972 [place] [address]Dr. Erica Abarca ALT [Catalytic activity/Vol] 19 U/L Normal 16-63 [facility] Comment on above: Performed By: #### C MADM, CMP, CRP, BNP ####[facility] Grcwdppmyo5897 [place] [address]Dr. Erica Abarca Anion gap [Moles/Vol] 7.8 mmol/L Normal [facility] Comment on above: Performed By: #### C MADM, CMP, CRP, BNP ####[facility] Jiuejjmbed14[address] [place] [address]Dr. Erica Abarca AST [Catalytic activity/Vol] 24 U/L Normal 15-37 [facility] Comment on above: Performed By: #### C MADM, CMP, CRP, BNP ####[facility] Hpmddixala5398 [place] [address]Dr. Erica Abarca Bilirubin [Mass/Vol] 0.9 mg/dL Normal 0.2-1.0 [facility] Comment on above: Performed By: #### C MADM, CMP, CRP, BNP ####[facility] Heiawnkrkp[address] [place], [place] [address]Dr. Erica Abarca Calcium [Mass/Vol] 8.8 mg/dL Normal 8.5-10.1 [facility] Comment on above: Performed By: #### C MADM, CMP, CRP, BNP ####[facility] Ywbhsswdal[address] [place], [place] [address]Dr. Erica Abarca Chloride [Moles/Vol] 101 mmol/L Normal 98-107 [facility] Comment on above: Performed By: #### C MADM, CMP, CRP, BNP ####[facility] Wjqziudtcm[address] [place], [place] [address]Dr. Erica Abarca CO2 [Moles/Vol] 29.3 mmol/L Normal 21.0-32.0 [facility] Comment on above: Performed By: #### C MADM, CMP, CRP, BNP ####[facility] Knhjyjlxze[address] [place] [address]Dr. Erica Abarca Creatinine [Mass/Vol] 1.42 mg/dL Critically high 0.70-1.30 [facility] Comment on above: Performed By: #### C MADM, CMP, CRP, BNP ####[facility] Sldauiafvq364[address] [place] [address]Dr. Erica Abarca EGFR-AF AUSTRIAN >60 Normal >=60 [facility] Comment on above: Performed By: #### C MADM, CMP, CRP, BNP ####[facility] Fojlecavrl[address] [place] [address]Dr. Erica Tevin EGFR-NON AF AUSTRIAN 51 mL/min/1.73m2 Critically low >=60 [facility] Comment on above: Performed By: #### C MADM, CMP, CRP, BNP ####[facility] Ubwbhkxqct9983 [place] [address]Dr. Shiraemilia Tevin Globulin (S) [Mass/Vol] 4.2 g/dL Normal [facility] Comment on above: Performed By: #### C MADM, CMP, CRP, BNP ####[facility] Hpvtnzhrtl0753 [place] [address]Dr. Erica Abarca Glucose [Mass/Vol] 171 mg/dL Critically high 74-[address] [facility] Comment on above: Performed By: #### C MADM, CMP, CRP, BNP ####[facility] Ppfodxjllp28[address] [place] [address]Dr. Shiraemilia Tevin Potassium [Moles/Vol] 4.1 mmol/L Normal 3.5-5.1 [facility] Comment on above: Performed By: #### C MADM, CMP, CRP, BNP ####[facility] Iceocfgfzz[address] [place] [address]Dr. Erica Abarca Protein [Mass/Vol] 7.4 g/dL Normal 6.4-8.2 [facility] Comment on above: Performed By: #### C MADM, CMP, CRP, BNP ####[facility] Blcuudnkdu[address] [place] [address]Dr. Erica Abarca Sodium [Moles/Vol] 134 mmol/L Critically low 136-145 [facility] Comment on above: Performed By: #### C MADM, CMP, CRP, BNP ####[facility] Dktwwkflef26[address] [place] [address]Dr. Erica Abarca Urea nitrogen [Mass/Vol] 21.0 mg/dL Critically high 7.0-18.0 [facility] Comment on above: Performed By: #### C MADM, CMP, CRP, BNP ####[facility] Skrpaxodeg8[address] [place], [place] [address]Qo. Erica Abarca Urea nitrogen/Creatinine [Mass ratio] 14.8 mg/mg Normal [facility] Comment on above: Performed By: #### C MADM, CMP, CRP, BNP ####[facility] Xzdwwtseeo4727 [place], [place] [address]Ag. Erica Abarca Encounters Encounter Date Encounter Type Care Provider Facility Start: 01-04-2023 ambulatory Facility: [facility] Start: 01-03-2023 ambulatory Facility:[facility] Start: 01-03-2023 Encounter for preprocedural cardiovascular examination Carlos Green [facility] Start: 01-03-2023 End: 01-26-2023 Evaluation and management of inpatient Osman Henderson Facility:[facility] Start: 10-18-2022 Patient encounter procedure Polo Hess APRN.GLASSWARE VERIFIER Work Phone: [facility] Start: 10-18-2022 Progress Note Polo BERNSTEIN RN.GLASSWARE VERIFIER Work Phone: [facility] Start: 10-18-2022 End: 10-19-2022 ambulatory [facility] Facility: Start: 10-17-2022 End: 10-18-2022 ambulatory ITRI A ARIES Facility:[facility] Start: 10-15-2022 End: 10-16-2022 ambulatory ITRI A ARIES Facility:[facility] Start: 10-12-2022 End: 10-13-2022 ambulatory ITRI A ARIES Facility:[facility] Start: 10-06-2022 Patient encounter procedure Polo Hess APRN.GLASSWARE VERIFIER Work Phone: [facility] Start: 10-06-2022 Progress Note Pool BERNSTEIN RN.GLASSWARE VERIFIER Work Phone: [facility] Start: 10-04-2022 End: 10-05-2022 ambulatory [facility] Facility:[facility] Start: 09-29-2022 Patient encounter procedure Polo Hess STEEL ANALYST.GLASSWARE VERIFIER Work Phone: [facility] Start: 09-29-2022 Progress Note Polo BERNSTEIN RN.GLASSWARE VERIFIER Work Phone: [facility] Start: 09-27-2022 Patient encounter procedure Itri Juan Aries Work Phone: [facility] Start: 09-27-2022 Progress Note Itri A Aries Work Phone: [facility] Start: 09-17-2022 End: 09-26-2022 Evaluation and management of inpatient DR NAZ PURDY . Facility:[facility] Start: 09-16-[address] NAZ PURDY . Facili ty:[facility] Start: 09-15-2022 End: 09-15-[address] NAZ PURDY . Facility:[facility] Start: 09-14-2022 End: 09-16-[address] NAZ PURDY . Facility:[facility] Start: 09-13-2022 End: 09-14-2022 ambulatory LEENA CAZARES Facility:[facility] Start: 09-12-2022 End: 09-12-[address] NAZ PURDY . Facility:[facility] Start: 09-08-2022 End: 09-08-[address] NAZ PURDY . Facility:[facility] Start: 09-06-2022 End: 09-07-2022 ambulatory [facility] Start: 09-05-2022 End: 09-05-[address] NAZ PURDY . Facility:[facility] Start: 09-01-2022 End: 09-01-2022 ambulatory GARTH CHAIDEZ . Facility:[facility] Start: 08-30-2022 End: 08-31-2022 ambulatory LEENA CAZARES Facility:[facility] Start: 08-29-2022 End: 08-29-2022 ambulatory GARTH CHAIDEZ . Facility:[facility] Start: 08-26-2022 End: 08-27-2022 ambulatory LEENA CAZARES Facility:[facility] Start: 08-25-2022 End: 08-25-[address] DOCTOR GAYLE Facility:[facility] Start: 08-23-2022 End: 08-23-2022 ambulatory GARTH DM . Facility:[facility] Start: 08-23-2022 End: 08-24-2022 ambulatory [facility] Brandon [facility] Facility:[facility] Start: 08-20-2022 End: 08-21-2022 ambulatory GARTH DM . Facility:[facility] Start: 08-10-2022 End: 08-19-2022 Evaluation and management of inpatient GARTH DM . Facility:[facility] Start: 08-02-2022 End: 08-03-[address] DANICA HARPER Facility:[facility] Start: 07-14-2022 End: 07-15-[address] JOEL APARICIO Facility:[facility] Start: 06-28-2022 End: 06-29-2022 ambulatory [facility] Facility:[facility] Start: 05-24-2022 ambulatory [facility] Faci lity:[facility]1 Start: 05-23-2022 ambulatory [facility] Faci lity:[facility]1 Start: 05-23-2022 End: 05-27-2022 Evaluation and management of inpatient DR NAZ PURDY . Facility:[facility] Start: 05-02-2022 End: 05-03-2022 ambulatory [facility] Brandon [facility] Facility:[facility] Start: 04-13-2022 End: 04-14-2022 ambulatory [facility] Facility:[facility] Start: 04-01-2022 End: 04-05-2022 Evaluation and management of inpatient DR NAZ PURDY . Facility:[facility] Start: 01-25-[address] NAZ PURDY . Facili ty:[facility] Start: 11-18-2021 End: 11-19-2021 ambulatory [facility] Facility:[facility] Procedures Date Procedure Procedure Detail Performing Clinician Start: 01-05-2023 Antibody screen Osman Henderson Comment on above: Order Comment: Trans fuse now? Y Number of units to transfuse now? 1 Transfuse now? Y Number of units to transfuse now? 1 Result Comment: PERF ORMED BY: [facility] [id number] [place] [address] PATHOLOGIST NETWORK DESIGNER RICHARD OLSEN M.D. Start: 09-18-2022 Transfusion of Nonau tologous Red Blood Cells into Central Vein, Percutaneous Approach GARTH DM . Start: 08-18-2022 Drainage of Right Lo wer Leg Skin, External Approach GARTH DM . Start: 08-18-2022 Excision of Right Lo wer Leg Skin, External Approach GARTH DM . Start: 08-18-2022 Removal of Synthetic Substitute from Right Ankle Joint, Open Approach GARTH DM . Start: 08-12-2022 Microscopic examinat ion of blood, culture GARTH DM . Comment on above: Performed By: #### B [id number] ####[facility] [id number] [place], [place] [id number]. Erica Abarca Start: 08-12-2022 Drainage of Right Fo ot Skin, External Approach GARTH DM . Start: 08-10-2022 Insertion of Infusio n Device into Superior Vena Cava, Percutaneous Approach GARTH DM . Start: 08-10-2022 Transfusion of Nonau tologous Red Blood Cells into Peripheral Vein, Percutaneous Approach GARTH DM . Start: 05-26-2022 Transfusion of Nonau tologous Red Blood Cells into Peripheral Vein, Percutaneous Approach GARTH DM . Start: 05-24-2022 INTRO ABX-EL BN VD F LR BONES OPN 7 GARTH DM . Start: 05-24-2022 Removal of Internal Fixation Device from Right Ankle Joint, Open Approach GARTH DM . Payers Date Payer Category Payer Medicaid [id number] 2020 Medicare UHC MEDICARE UHC MEDICARE ADVANTAGE PPO [id number] 2020-Present [phone] [address] [address] [place] [address] PPO [id number] 1963 Unknown [id number] 2..840.1.651740.3.579.2. 593 1963 Unknown [id number] 2.16.840.1.784591.3.579.2. 593 1963 Unknown [id number] 2.16.840.1.043566.3.579.2. 593 1963 Unknown [id number] 2.16.840.1.525584.3.579.2. 593 1963 Unknown [id number] 2.16.840.1.112215.3.579.2 59 1963 Unknown [id number] 2.16.840.1.237774.3.579.2. 59 1963 Unknown [id number] 2.16.840.1.012386.3.579.2 59 1963 Unknown [id number] 2.16.840.1.256802.3.579.2 59 1963 Unknown [id number] 2.16.840.1.119227.3.579.2 59 1963 Unknown [id number] 2.16840.1.291875.3.579.2 59 1963 Unknown [id number] 2.16.840.1.567895.3.579.2 59 1963 Unknown [id number] 2.16.840.1.738583.3.579.2 59 1963 Unknown [id number] 2.16.840.1.583117.3.579.2 59 1963 Unknown [id number] 2.16.840.1.512346.3.579.2. 59 1963 Unknown [id number] 2.16.840.1.334407.3.579.2 59 1963 Unknown [id number] 2.16840.1.952170.3.579.2. 59 1963 Unknown [id number] 2.16.840.1.103932.3.579.2 59 1963 Unknown [id number] 2.16.840.1.421406.3.579.2. 59 1963 Unknown [id number] 2.16.840.1.912608.3.579.2 59 1963 Unknown [id number] 2.16.840.1.134789.3.579.2. 593 1963 Unknown [id number] 2.16.840.1.283731.3.579.2. 593 1963 Unknown [id number] 2.16.840.1.010552.3.579.2. 593 1963 Unknown [id number] 2.16.840.1.334906.3.579.2. 593 1963 Unknown [id number] 2.16.840.1.026785.3.579.2. 593 1963 Unknown [id number] 2.16.840.1.928974.3.579.2. 593 1963 Unknown [id number] 2.16840.1.497714.3.579.2. 593 1963 Unknown [id number] 2.16.840.1.366402.3.579.2. 593 1963 Unknown [id number] 2.16.840.1.524276.3.579.2. 593 1963 Unknown [id number] 2.16.840.1.025005.3.579.2. 593 1963 Unknown [id number] 2.16.840.1.191370.3.579.2. 593 1963 Unknown [id number] 2.16.840.1.011730.3.579.2. 593 1963 Unknown [id number] 2.16.840.1.492922.3.579.2. 593 1963 Unknown [id number] 2.16.840.1.666858.3.579.2. 727 1963 Unknown [id number] 2.16.840.1.361893.3.579.2. 727 1963 Unknown [id number] 2.16.840.1.083138.3.579.2. 727 1963 Unknown [id number] 2..840.1.861477.3.579.2. 356 1963 Unknown [id number] 2.16.840.1.332060.3.579.2. 356 1959 Private Health Insurance [id number] 1959 Self-pay Unknown [id number] 2..840.1.740184.3.579.2. 531 Social History Date Type Detail Facility [facility] Start: 1965 Sex Assigned At Not on file [facility] Progress note 10-18-2022 Note Date & Type Note Facility 10-18-2022 Note HNO ID: [id number] Author: Polo Hess APRN.GLASSWARE VERIFIER Service: ? Author Type: Nurse Specialist Type: Progress Notes Filed: 10/25/2022 6:58 AM Note Text: [facility] NOTE NAME: MICHEAL MEZA NO.: [id number] DATE OF SERVICE: 10/18/2022 [facility] DATE OF : 1965 REASON FOR VISIT: The patient is a resident of [facility]. This is a skilled visit for cellulitis of right lower extremity with open wound and other medical concerns. Upon entering room, found the patient calm, alert, sitting in wheelchair. The patient does not appear to be in distress or discomfort. The patient states is preparing to go to [place] to get boot fitted to the right foot. Requests for ProStat to be discontinued. States has not taken since has been in [place] and has not taken in the hospital. The patient states has no complaints at this time. No pain. No cough, no shortness of breath. No fever, chills, or nausea. States appetite is good. Bowels have been moving. States has been drinking fluids. Denies urinary symptoms. MEDICATIONS: Medications have been reviewed. PHYSICAL EXAMINATION: Temp 98.1, blood pressure 146/87, pulse 88, respirations 18, pulse ox 97% on room air. Weight 507 pounds. Respiratory: Respirations are easy and unlabored with the patient at rest. Lung sounds are clear. Heart: Heart rate and rhythm regular. Abdomen: Soft, nontender with palpation. Bowel sounds present x4. Extremities: Edematous bilaterally. Compression stocking noted in left lower extremity. Dressing is dry and intact to the right lower extremity. LAB DATA: Labs reviewed October 13, 2022. Basic metabolic panel abnormals - glucose 307, BUN 28, creatinine 1.7, GFR 42, all other labs within normal range. CBC with diff abnormals - WBC 4.0, hemoglobin 10.0, hematocrit 31.8, MCV 79.4, MCH 25.0, RDW 19.9, anisocytosis 2+, hypochromasia 1+, microcytosis +1, basophil 2.2, eosinophils 0.10, all other labs within normal range. IMPRESSION AND PLAN: 1. Cellulitis with open wound to the right lower extremity subsequent encounter. The patient will continue follow with Podiatry services and wound service. Continue dressing changes per wound directive. The patient continues with vancomycin. Pharmacy to dose. 2. Anemia. Hemoglobin 10.0, hematocrit 31.8. No bleeding episodes have been identified. 3. Diabetes. The patient is glycemic reading of 209. The patient states this is pretty much his baseline. On Toujeo, lispro per sliding scale. 4. Neuropathy from diabetes. On gabapentin. 5. Hypertension. On carvedilol, amlodipine, clonidine. 6. Depression. The patient appears to be in good spirits. On desvenlafaxine. DICTATED BY: MOE Butt/Mike JOB# [id number] cc:[facility] History of Present illness Narrative 10-18-2022 Pool Hess APRN.GLASSWARE VERIFIER - 10/18/2022 12:00 AM EDT Note Date & Type Note Facility 10-18-2022 History of Presen t illness Narrative [facility] NOTE NAME: MICHEAL MEZA NO.: [id number] DATE OF SERVICE: 10/18/2022 [facility] DATE OF : 1965 REASON FOR VISIT: The patient is a resident of [facility]. This is a skilled visit for cellulitis of right lower extremity with open wound and other medical concerns. Upon entering room, found the patient calm, alert, sitting in wheelchair. The patient does not appear to be in distress or discomfort. The patient states is preparing to go to [place] to get boot fitted to the right foot. Requests for ProStat to be discontinued. States has not taken since has been in [place] and has not taken in the hospital. The patient states has no complaints at this time. No pain. No cough, no shortness of breath. No fever, chills, or nausea. States appetite is good. Bowels have been moving. States has been drinking fluids. Denies urinary symptoms. MEDICATIONS: Medications have been reviewed. PHYSICAL EXAMINATION: Temp 98.1, blood pressure 146/87, pulse 88, respirations 18, pulse ox 97% on room air. Weight 507 pounds. Respiratory: Respirations are easy and unlabored with the patient at rest. Lung sounds are clear. Heart: Heart rate and rhythm regular. Abdomen: Soft, nontender with palpation. Bowel sounds present x4. Extremities: Edematous bilaterally. Compression stocking noted in left lower extremity. Dressing is dry and intact to the right lower extremity. LAB DATA: Labs reviewed October 13, 2022. Basic metabolic panel abnormals - glucose 307, BUN 28, creatinine 1.7, GFR 42, all other labs within normal range. CBC with diff abnormals - WBC 4.0, hemoglobin 10.0, hematocrit 31.8, MCV 79.4, MCH 25.0, RDW 19.9, anisocytosis 2+, hypochromasia 1+, microcytosis +1, basophil 2.2, eosinophils 0.10, all other labs within normal range. IMPRESSION AND PLAN: 1. Cellulitis with open wound to the right lower extremity subsequent encounter. The patient will continue follow with Podiatry services and wound service. Continue dressing changes per wound directive. The patient continues with vancomycin. Pharmacy to dose. 2. Anemia. Hemoglobin 10.0, hematocrit 31.8. No bleeding episodes have been identified. 3. Diabetes. The patient is glycemic reading of 209. The patient states this is pretty much his baseline. On Toujeo, lispro per sliding scale. 4. Neuropathy from diabetes. On gabapentin. 5. Hypertension. On carvedilol, amlodipine, clonidine. 6. Depression. The patient appears to be in good spirits. On desvenlafaxine. DICTATED BY: MOE Butt/Mike JOB# [id number] cc:[facility] documented in this encounter [facility] Progress note 10-11-2022 Note Date & Type Note Facility 10-11-2022 Note HNO ID: [id number] Author: Polo Hess APRN.GLASSWARE VERIFIER Service: ? Author Type: Nurse Specialist Type: Progress Notes Filed: 10/13/2022 8:49 AM Note Text: [facility] NOTE NAME: MICHEAL MEZA NO.: [id number] DATE OF SERVICE: 10/11/2022 [facility] DATE OF : 1965 REASON FOR VISIT: The patient is a resident of [facility]. This is a skilled visit for cellulitis of right lower extremity with open wound and other medical concerns. Upon entering the room I found the patient calm, alert, lying in bed, watching television. The patient does not appear to be in distress or discomfort. The patient states no complaints. No pain, no cough, no shortness of breath. No fever, chills, or nausea. States appetite is good and bowels have been moving. States has been drinking fluids. Denies urinary symptoms. MEDICATIONS: Have been reviewed. PHYSICAL EXAMINATION: Temp 97.6, blood pressure 130/82, pulse 72, respirations 18, pulse ox 96% on room air, weight 503.8 pounds. Respiratory: Respirations are easy and unlabored with patient at rest. Lung sounds are clear. Heart: Heart rate and rhythm regular. Abdomen: Soft and nontender with palpation. Bowel sounds present x4. Extremities: Mildly edematous. Right lower extremity dressing is dry and intact. IMPRESSION AND PLAN: 1. Cellulitis to the right lower extremity with open wound, subsequent encounter. The patient is currently on vancomycin. The patient is noted to have an elevating renal function, we will monitor closely. The patient has no urinary symptoms at this time. Continue dressing changes. The patient will continue to follow up with wound and podiatry services. 2. Anemia from blood loss. No bleeding episodes identified per staff. Hemoglobin 10.5, unchanged from previous blood drawn. 3. Diabetes with neuropathy. Detemir increased to 140 units b.i.d. subcu. The patient has a glycemic reading of 262. We will continue with lispro, gabapentin. 4. Hypertension. The patient has fair blood pressure control. Continue antihypertensives. 5. Depression. The patient appears to be in good spirits on desvenlafaxine. 6. Sleep apnea, continue CPAP. DICTATED BY: MOE Butt JOB# [id number] cc:[facility] Progress note 10-06-2022 Note Date & Type Note Facility 10-06-2022 Note HNO ID: [id number] Author: Polo Hess APRN.GLASSWARE VERIFIER Service: ? Author Type: Nurse Specialist Type: Progress Notes Filed: 10/10/2022 7:28 AM Note Text: [facility] NOTE NAME: MICHEAL MEZA NO.: [id number] DATE OF SERVICE: 10/06/2022 [facility] DATE OF : 1965 REASON FOR VISIT: The patient is a resident of [facility]. This is a skilled visit for anemia from blood loss, right lower extremity cellulitis and other medical concerns. Upon entering the room I found the patient sleeping in supine position with CPAP on. The patient does not appear to be in distress or discomfort and is easily aroused. The patient states was seen by wound services and is being evaluated for [place]O [place] boot. The patient states he was informed by podiatry services that he has no bone structure to his ankle and a [place] boot will assist in helping him full weight bear so he can return home. The patient states he was seen by wound services 2 days ago and wound feels as though the wounds are healing. The patient states at this time he has no pain, no cough, no shortness of breath. No fever, chills, or nausea. States he is eating well and bowels have been moving. States has been drinking fluids. Denies urinary symptoms. MEDICATIONS: Have been reviewed. PHYSICAL EXAMINATION: Temp 97.1, blood pressure 148/86, pulse 64, respirations 16, pulse ox 98% on room air, weight 508 pounds. Respiratory: Respirations are easy and unlabored with patient at rest. Lung sounds are clear. Heart: Heart rate and rhythm regular. Abdomen: Soft and nontender with palpation. Bowel sounds present x4. Extremities: Very mildly edematous with dressings to the right lower extremity, dry and intact. No bleeding episodes are identified. IMPRESSION AND PLAN: 1. Anemia from blood loss, no bleeding at this time. Hemoglobin 10.4, hematocrit 33.0. 2. Open wound, right lower extremity. The patient will continue to follow with podiatry services. The patient will complete vancomycin IV, October 07, 2022. Continue wound care and wound dressing per wound directives. He is being evaluated for [place] boot. 3. Cellulitis, right lower extremity, no erythema, no evidence of cellulitis at this time. 4. Diabetes. The patient has a glycemic reading of 151. Patient's blood sugars fluctuate greatly, currently on detemir, lispro. 5. Neuropathy, on gabapentin. 6. Hypertension, on carvedilol, Entresto, clonidine and amlodipine. 7. Depression. The patient appears to be in fairly good spirits and is talkative and cooperative with examination, on desvenlafaxine, continue to monitor moods and behaviors. 8. Sleep apnea, patient does use CPAP. 9. Labs reviewed, September 29, 2022, basic metabolic panel, abnormals glucose 213, sodium 135, chloride 95, BUN 36, creatinine 1.6, GFR 45. All other labs within normal range. 10. CBC with diff, abnormals hemoglobin 10.4, hematocrit 33.0, MCV 78.7, MCH 24.8, RDW 21.1, anisocytosis 2+, hypochromasia 1+, microcytosis +1. All other labs within normal range. DICTATED BY: MOE Butt JOB# [id number] cc:[facility] History of Present illness Narrative 10-06-2022 Polo Hess APRN.GLASSWARE VERIFIER - 10/06/2022 12:00 AM EDT Note Date & Type Note Facility 10-06-2022 History of Presen t illness Narrative [facility] NOTE NAME: MICHEAL MEZA NO.: [id number] DATE OF SERVICE: 10/06/2022 [facility] DATE OF : 1965 REASON FOR VISIT: The patient is a resident of [facility]. This is a skilled visit for anemia from blood loss, right lower extremity cellulitis and other medical concerns. Upon entering the room I found the patient sleeping in supine position with CPAP on. The patient does not appear to be in distress or discomfort and is easily aroused. The patient states was seen by wound services and is being evaluated for [place] boot. The patient states he was informed by podiatry services that he has no bone structure to his ankle and a [place] boot will assist in helping him full weight bear so he can return home. The patient states he was seen by wound services 2 days ago and wound feels as though the wounds are healing. The patient states at this time he has no pain, no cough, no shortness of breath. No fever, chills, or nausea. States he is eating well and bowels have been moving. States has been drinking fluids. Denies urinary symptoms. MEDICATIONS: Have been reviewed. PHYSICAL EXAMINATION: Temp 97.1, blood pressure 148/86, pulse 64, respirations 16, pulse ox 98% on room air, weight 508 pounds. Respiratory: Respirations are easy and unlabored with patient at rest. Lung sounds are clear. Heart: Heart rate and rhythm regular. Abdomen: Soft and nontender with palpation. Bowel sounds present x4. Extremities: Very mildly edematous with dressings to the right lower extremity, dry and intact. No bleeding episodes are identified. IMPRESSION AND PLAN: 1. Anemia from blood loss, no bleeding at this time. Hemoglobin 10.4, hematocrit 33.0. 2. Open wound, right lower extremity. The patient will continue to follow with podiatry services. The patient will complete vancomycin IV, October 07, 2022. Continue wound care and wound dressing per wound directives. He is being evaluated for [place] boot. 3. Cellulitis, right lower extremity, no erythema, no evidence of cellulitis at this time. 4. Diabetes. The patient has a glycemic reading of 151. Patient's blood sugars fluctuate greatly, currently on detemir, lispro. 5. Neuropathy, on gabapentin. 6. Hypertension, on carvedilol, Entresto, clonidine and amlodipine. 7. Depression. The patient appears to be in fairly good spirits and is talkative and cooperative with examination, on desvenlafaxine, continue to monitor moods and behaviors. 8. Sleep apnea, patient does use CPAP. 9. Labs reviewed, September 29, 2022, basic metabolic panel, abnormals glucose 213, sodium 135, chloride 95, BUN 36, creatinine 1.6, GFR 45. All other labs within normal range. 10. CBC with diff, abnormals hemoglobin 10.4, hematocrit 33.0, MCV 78.7, MCH 24.8, RDW 21.1, anisocytosis 2+, hypochromasia 1+, microcytosis +1. All other labs within normal range. DICTATED BY: MOE Butt/Mike JOB# [id number] cc:[facility] documented in this encounter [facility] Progress note 09-29-2022 Note Date & Type Note Facility 09-29-2022 Note HNO ID: [id number] Author: Polo Hess APRN.GLASSWARE VERIFIER Service: ? Author Type: Nurse Specialist Type: Progress Notes Filed: 10/03/2022 10:19 AM Note Text: [facility] NOTE NAME: MICHEAL MEZA NO.: [id number] DATE OF SERVICE: 09/29/2022 [facility] DATE OF : 1965 REASON FOR VISIT: The patient is a resident of [facility]. This is a skilled visit for anemia, open wound of the right foot with cellulitis right lower extremity and other medical concerns. The patient had insulin adjustments performed since the patient has been admitted to [facility] due to hyperglycemic readings. Upon entering the room I found the patient calm, alert, in low-Shi's position in bed. The patient does not appear to be distress or discomfort. The patient is calm and cooperative with examination and is a good historian. For self-care needs, at home takes the Toujeo Max, states typically his blood sugars have been controlled in the high 100s to low 200s. To explain the patient's blood sugars and after Levemir has been adjusted, the patient's blood sugars are low to mid 200s. The patient states Toujeo Max was unavailable in the hospital setting. The patient states he does take Humalog at home as it is scheduled here. The patient states when asked him if he is adhering to his diabetic diet, the patient states he attempts good intentions of staying with diabetic diet. States no polyuria or polydipsia stated. The patient states appetite is improved, and now is eating almost normally. did have poor appetite in the hospital. States his bowels are moving. States does have some sensation to the bilateral lower extremities and does feel some sensation, but does have neuropathy. The patient states no unusual paresthesia right lower extremity. The patient states no pain at this time to the right lower extremity, states no cough, shortness of breath. No fever, chills, or nausea. MEDICATIONS: Have been reviewed. PHYSICAL EXAMINATION: Temp 97.8, blood pressure 120/54, pulse 83, respirations 18, pulse ox 97% on room air, weight 548 pounds. Respiratory: Respirations are easy and unlabored with patient at rest. Lung sounds are clear. Heart: Heart rate and rhythm regular. Abdomen: Soft and nontender with palpation. Bowel sounds present x4. Extremities: Very mildly edematous. Right lower extremity dressing left undisturbed. There is no drainage, no odor is identified at this time. IMPRESSION AND PLAN: 1. Anemia from blood loss. The patient had 6 units of packed cells administered after having blood loss from right foot wound. The patient has pending lab work today and will have weekly lab work while on antibiotic therapy. 2. Open wound right foot with cellulitis right lower extremity. The patient does follow with podiatry services, currently on vancomycin. Podiatry services is managing and dressings to be performed per podiatry's directives. 3. Diabetes. Currently on detemir, lispro, glycemic reading 219 today, staff has been asked to check availability of Toujeo Max for possible conversion. 4. Neuropathy, on gabapentin. 5. Depression. The patient appears to be in good spirits, on desvenlafaxine. Continue to monitor moods and behavior. 6. Hypertension. The patient has good blood pressure control, on antihypertensives. 7. Sleep apnea. The patient does wear BiPAP at night. DICTATED BY: MOE Butt/Mike JOB# [id number] cc:[facility] History of Present illness Narrative 09-29-2022 Polo Hess APRN.GLASSWARE VERIFIER - 09/29/2022 12:00 AM EDT Note Date & Type Note Facility 09-29-2022 History of Presen t illness Narrative [facility] NOTE NAME: MICHEAL MEZA NO.: [id number] DATE OF SERVICE: 09/29/2022 [facility] DATE OF : 1965 REASON FOR VISIT: The patient is a resident of [facility]. This is a skilled visit for anemia, open wound of the right foot with cellulitis right lower extremity and other medical concerns. The patient had insulin adjustments performed since the patient has been admitted to [facility] due to hyperglycemic readings. Upon entering the room I found the patient calm, alert, in low-Shi's position in bed. The patient does not appear to be distress or discomfort. The patient is calm and cooperative with examination and is a good historian. For self-care needs, states at home takes the Toujeo Max, states typically his blood sugars have been controlled in the high 100s to low 200s. To explain the patient's blood sugars and after Levemir has been adjusted, the patient's blood sugars are low to mid 200s. The patient states Toujeo Max was unavailable in the hospital setting. The patient states he does take Humalog at home as it is scheduled here. The patient states when asked him if he is adhering to his diabetic diet, the patient states he attempts good intentions of staying with diabetic diet. States no polyuria or polydipsia stated. The patient states appetite is improved, and now is eating almost normally. States did have poor appetite in the hospital. States his bowels are moving. States does have some sensation to the bilateral lower extremities and does feel some sensation, but does have neuropathy. The patient states no unusual paresthesia right lower extremity. The patient states no pain at this time to the right lower extremity, states no cough, shortness of breath. No fever, chills, or nausea. MEDICATIONS: Have been reviewed. PHYSICAL EXAMINATION: Temp 97.8, blood pressure 120/54, pulse 83, respirations 18, pulse ox 97% on room air, weight 548 pounds. Respiratory: Respirations are easy and unlabored with patient at rest. Lung sounds are clear. Heart: Heart rate and rhythm regular. Abdomen: Soft and nontender with palpation. Bowel sounds present x4. Extremities: Very mildly edematous. Right lower extremity dressing left undisturbed. There is no drainage, no odor is identified at this time. IMPRESSION AND PLAN: 1. Anemia from blood loss. The patient had 6 units of packed cells administered after having blood loss from right foot wound. The patient has pending lab work today and will have weekly lab work while on antibiotic therapy. 2. Open wound right foot with cellulitis right lower extremity. The patient does follow with podiatry services, currently on vancomycin. Podiatry services is managing and dressings to be performed per podiatry's directives. 3. Diabetes. Currently on detemir, lispro, glycemic reading 219 today, staff has been asked to check availability of Toujeo Max for possible conversion. 4. Neuropathy, on gabapentin. 5. Depression. The patient appears to be in good spirits, on desvenlafaxine. Continue to monitor moods and behavior. 6. Hypertension. The patient has good blood pressure control, on antihypertensives. 7. Sleep apnea. The patient does wear BiPAP at night. DICTATED BY: MOE Butt JOB# [id number] cc:Denzel Cardozo documented in this encounter [facility] Progress note 09-27-2022 Note Date & Type Note Facility 09-27-2022 Note HNO ID: [id number] Author: Timur Vazquez Service: ? Author Type: Physician Type: Progress Notes Filed: 09/28/2022 6:49 PM Note Text: [facility] INTER[facility]IATE NOTE NAME: MICHEAL MEZA NO.: [id number] DATE OF SERVICE: 09/27/2022 [place] [facility] DATE OF : 1965 New Patient History and Physical HISTORY OF PRESENT ILLNESS: The patient is a 56-year-old male, was admitted to us from the [facility] with the diagnosis of severe acute blood loss anemia secondary to bleeding foot wound requiring blood transfusions, right lower extremity acute/chronic cellulitis with abscess and underlying osteomyelitis requiring incision and drainage and hardware removal and a prolonged course of IV antibiotic therapy, recent Staphylococcus bacteremia, right foot Charcot deformity requiring surgery with hardware 4 years ago with subsequent breakdown of hardware with eventual infection requiring removal of hardware, diabetes mellitus type 2 with diabetic neuropathy, and once again Charcot deformity, GERD, hypertension, history of congestive heart failure, atrial fibrillation on Eliquis therapy, past history of lower extremity deep venous thrombosis, hyperlipidemia, morbid obesity, sleep apnea on BiPAP therapy, 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 He was initially admitted to the hospital due to severe bleeding from his chronic right foot wound, for which he had undergone recent surgery consisting of hardware removal as well as incision and drainage of abscess and infection. He did require transfusion of several units of packed RBCs. He recently had removal of all of his previous hardware for his Charcot deformity. He has also been receiving IV antibiotic therapy for recent Staphylococcus bacteremia and infected foot wound with cellulitis and abscess. He is now being admitted to our facility for continued therapy. He is currently nonweightbearing. REVIEW OF SYSTEMS: He is currently resting in bed. He is alert and oriented. He has had no change in his vision, hearing, or actual syncope. He denies being short of breath. No history of COPD, asthma, bronchitis, or recent pneumonia. He stopped smoking over 35 years ago. He denies any COVID infections. He is not vaccinated and refused to be so. He denies any heart attacks, heart surgeries or pacemakers. He apparently had been treated for congestive heart failure, which currently stable and compensated. He also has atrial fibrillation, for which has been on Eliquis therapy. He has been rate controlled. He does have hypertension and GERD. His appetite has been good. No bleeding ulcers, hepatitis, or melena. No prior strokes or seizures. He is uncontrolled diabetic with diabetic neuropathy and Charcot joint. He also has been treated for bilateral lower extremity deep venous thrombosis in the past. MEDICATIONS: Amlodipine 10 mg daily, Coreg 12.5 mg b.i.d., desvenlafaxine 100 mg daily, Eliquis 5 mg b.i.d., Entresto 24/26 b.i.d., furosemide 40 mg daily, gabapentin 600 mg b.i.d., detemir insulin 60 units subcu b.i.d., lispro insulin 20 units subcu before meals, metoprolol tartrate 25 mg b.i.d., pantoprazole 40 mg daily, Aldactone 50 mg daily, and vancomycin 500 mg IV daily. ALLERGIES: CIPRO, CLINDAMYCIN, LINEZOLID, SHELLFISH, AND SPIDER VENOM. FAMILY HISTORY: Significant for hypertension. SOCIAL/FUNCTIONAL HISTORY: He stopped smoking 35 years ago. No history of alcohol abuse. 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 He has been living at home. His mother has been living with him. EXAMINATION: Afebrile, his vital signs stable. He is in no distress. HEENT: Extraocular movements intact. Sclerae non-icteric. Ears, intact. Lungs are clear with decreased breath sounds bilaterally. Heart sounds regular. Abdomen: Soft, super morbidly obese, nontender. Extremities: With mild bipedal edema. He does have hyperpigmentation changes in lower extremities. No ischemia. No cyanosis. He is status post left big toe amputation. Right distal lower extremity is with a large dressing with Evan wrap that is clean and dry. Toes are pink and warm. He does have generalized weakness. PICC line present in right proximal arm. IMPRESSION: 1. Severe blood loss anemia secondary to bleeding right foot wound, requiring multiple blood transfusions - we will obtain followup CBC, monitor blood counts closely, monitor for signs or any further active bleeding. 2. Right lower extremity acute and chronic cellulitis with abscess, requiring incision and drainage and removal of all hardware from previous surgery for Charcot joint, also recent Staphylococcus bacteremia - the patient will continue with current wound care as a prolonged course of IV antibiotics. 3. Diabetes mellitus type 2 with diabetic neuropathy - maintain current di (more content not included)... [facility] History of Present illness Narrative 09-27-2022 Timur Vazquez - 09/27/2022 12:00 AM EDT Note Date & Type Note Facility 09-27-2022 History of Presen t illness Narrative [facility] NOTE NAME: MICHEAL MEZA NO.: [id number] DATE OF SERVICE: 09/27/2022 Denzel Cardozo DATE OF : 1965 New Patient History and Physical HISTORY OF PRESENT ILLNESS: The patient is a 56-year-old male, was admitted to us from the [facility] with the diagnosis of severe acute blood loss anemia secondary to bleeding foot wound requiring blood transfusions, right lower extremity acute/chronic cellulitis with abscess and underlying osteomyelitis requiring incision and drainage and hardware removal and a prolonged course of IV antibiotic therapy, recent Staphylococcus bacteremia, right foot Charcot deformity requiring surgery with hardware 4 years ago with subsequent breakdown of hardware with eventual infection requiring removal of hardware, diabetes mellitus type 2 with diabetic neuropathy, and once again Charcot deformity, GERD, hypertension, history of congestive heart failure, atrial fibrillation on Eliquis therapy, past history of lower extremity deep venous thrombosis, hyperlipidemia, morbid obesity, sleep apnea on BiPAP therapy, 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 He was initially admitted to the hospital due to severe bleeding from his chronic right foot wound, for which he had undergone recent surgery consisting of hardware removal as well as incision and drainage of abscess and infection. He did require transfusion of several units of packed RBCs. He recently had removal of all of his previous hardware for his Charcot deformity. He has also been receiving IV antibiotic therapy for recent Staphylococcus bacteremia and infected foot wound with cellulitis and abscess. He is now being admitted to our facility for continued therapy. He is currently nonweightbearing. REVIEW OF SYSTEMS: He is currently resting in bed. He is alert and oriented. He has had no change in his vision, hearing, or actual syncope. He denies being short of breath. No history of COPD, asthma, bronchitis, or recent pneumonia. He stopped smoking over 35 years ago. He denies any COVID infections. He is not vaccinated and refused to be so. He denies any heart attacks, heart surgeries or pacemakers. He apparently had been treated for congestive heart failure, which currently stable and compensated. He also has atrial fibrillation, for which has been on Eliquis therapy. He has been rate controlled. He does have hypertension and GERD. His appetite has been good. No bleeding ulcers, hepatitis, or melena. No prior strokes or seizures. He is uncontrolled diabetic with diabetic neuropathy and Charcot joint. He also has been treated for bilateral lower extremity deep venous thrombosis in the past. MEDICATIONS: Amlodipine 10 mg daily, Coreg 12.5 mg b.i.d., desvenlafaxine 100 mg daily, Eliquis 5 mg b.i.d., Entresto 24/26 b.i.d., furosemide 40 mg daily, gabapentin 600 mg b.i.d., detemir insulin 60 units subcu b.i.d., lispro insulin 20 units subcu before meals, metoprolol tartrate 25 mg b.i.d., pantoprazole 40 mg daily, Aldactone 50 mg daily, and vancomycin 500 mg IV daily. ALLERGIES: CIPRO, CLINDAMYCIN, LINEZOLID, SHELLFISH, AND SPIDER VENOM. FAMILY HISTORY: Significant for hypertension. SOCIAL/FUNCTIONAL HISTORY: He stopped smoking 35 years ago. No history of alcohol abuse. 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 He has been living at home. His mother has been living with him. EXAMINATION: Afebrile, his vital signs stable. He is in no distress. HEENT: Extraocular movements intact. Sclerae non-icteric. Ears, intact. Lungs are clear with decreased breath sounds bilaterally. Heart sounds regular. Abdomen: Soft, super morbidly obese, nontender. Extremities: With mild bipedal edema. He does have hyperpigmentation changes in lower extremities. No ischemia. No cyanosis. He is status post left big toe amputation. Right distal lower extremity is with a large dressing with Evan wrap that is clean and dry. Toes are pink and warm. He does have generalized weakness. PICC line present in right proximal arm. IMPRESSION: 1. Severe blood loss anemia secondary to bleeding right foot wound, requiring multiple blood transfusions - we will obtain followup CBC, monitor blood counts closely, monitor for signs or any further active bleeding. 2. Right lower extremity acute and chronic cellulitis with abscess, requiring incision and drainage and removal of all hardware from previous surgery for Charcot joint, also recent Staphylococcus bacteremia - the patient will continue with current wound care as a prolonged course of IV antibiotics. 3. Diabetes mellitus type 2 with diabetic neuropathy - maintain current diabetic regimen, monitor blood sugars closely, make adjustment as needed. 4. History of depression - he has been rate controlled. He is on Eliquis therapy, which was initially put on hold due to the active bleeding of this foot wound. 5. Hypertension - monitor blood pressure closely, make adjustment as needed. 6. Sleep apnea - continue BiPAP therapy. 7. Functional assessment - he does have generalized weakness. He will be receiving rehab services for overall strengthening and conditioning. Overall condition and prognosis is quite guarded. We will obtain followup labs including CBC and BMP. He will be returning home upon completion of his therapy. DICTATED BY: MD GABBY Thomas/Mike JOB# [id number] cc:Denzel Cardozo documented in this encounter [facility] Progress note 09-06-2022 Note Date & Type Note Facility 09-06-2022 Note Cardiology Clinic No te Subjective Toribio Meza is a 56 y.o. year old morbidly obese male with a BMI >63, hypertension, hyperlipidemia, recurrent DVTs on Eliquis, diabetes, and heart failure reduced ejection fraction seen in posthospital follow-up discharged on 08/19/2022. He was seen by cardiology in consultation for preoperative risk stratification for removal of the hardware and I&D of right ankle abscess. He was recommended a preoperative echocardiogram which showed moderate dilatation of the LV with an ejection fraction of 45%. Inpatient cardiology notes are not available for my review, discharge summary reviewed. He was also found to have Staphylococcus bacteremia and is completing a 6-week course of intravenous vancomycin postoperatively.. Today he presents with his sister, he reports he is overall doing okay. He is not very functional at baseline, and uses a wheelchair and scooter to get around. There is no problem list on file for this patient. Family History Problem Relation Name Age of Onset Cancer Mother Heart failure Mother Other (abdominal aortic aneurysm) Father Social History Tobacco Use Smoking status: Former Types: Cigarettes Smokeless tobacco: Never Substance Use Topics Alcohol use: Not Currently Review of Systems Cardiovascular: Positive for leg swelling. Negative for chest pain, dyspnea on exertion, irregular heartbeat, near-syncope, orthopnea and palpitations. Objective Visit Vitals BP 152/67 (BP Location: Right wrist, Patient Position: Sitting) Pulse 81 Ht 1.88 m (6' 2 ) Wt (!) 223 kg (492 lb) SpO2 (!) 85% BMI 63.17 kg/m??? Smoking Status Former BSA 3.41 m??? Physical Exam General: Awake, alert, obese Pulm: Breath sounds clear to ascultation bilaterally with no wheeze, crackles or rhonchi Cards: Regular rate and rhythm, S1, S2. No S3 or S4 gallop. Murmur: none Abd: Soft, Nontender, physiologic bowel sounds are present Extr: Lower extremity edema: RLE in a boot, LLE trace. Skin: warm, dry, well perfused Neuro: A&Ox3 Allergies Allergies Allergen Reactions Ciprofloxacin Clindamycin Shellfish Derived Spider Venom Medications Current Outpatient Medications: amLODIPine (Norvasc) 10 mg tablet, , Disp: , Rfl: cloNIDine (Catapres-TTS) 0.3 mg/24 hr, APPLY 1 PATCH TOPICALLY TO THE SKIN EVERY WEEK DIRECTED, Disp: , Rfl: desvenlafaxine (Pristiq) 100 mg 24 hr tablet, Take 100 mg by mouth in the morning., Disp: , Rfl: Eliquis 5 mg tablet, Take 5 mg by mouth in the morning and at bedtime., Disp: , Rfl: Entresto 24-26 mg tablet, Take 1 tablet by mouth in the morning and at bedtime., Disp: , Rfl: furosemide (Lasix) 40 mg tablet, Take 40 mg by mouth in the morning., Disp: , Rfl: gabapentin (Neurontin) 300 mg capsule, Take 600 mg by mouth in the morning and at bedtime., Disp: , Rfl: HumaLOG KwikPen Insulin 200 unit/mL (3 mL) insulin pen pen, , Disp: , Rfl: metoprolol tartrate (Lopressor) 100 mg tablet, Take 100 mg by mouth in the morning and at bedtime., Disp: , Rfl: pantoprazole (ProtoNix) 40 mg EC tablet, Take 40 mg by mouth in the morning., Disp: , Rfl: Toujeo Max U-300 SoloStar 300 unit/mL (3 mL) injection, INJECT 300 UNITS UNDER THE SKIN TWICE A DAY, Disp: , Rfl: Recent Labs 09/05/2022 WBC 4.6, hemoglobin 7, hematocrit 24.3, platelets 290 Sodium 144, potassium 3.4, BUN 20, creatinine 1.58, ALT 17, AST 22 Imaging and other tests Echocardiogram: 08/09/2022 The left ventricle exhibits moderate dilatation with mildly reduced systolic function. There is global hypokinesis. LVEF is 45% Normal right ventricular size and systolic function No pericardial effusion Limited study performed with no Doppler interrogation is requested Echocardiogram: 04/04/2022 Moderate concentric left ventricular hypertrophy. Left ventricular systolic function is mildly to moderately reduced. Left ventricular ejection fraction is 40%. Grade 2 diastolic dysfunction The right ventricle is mildly dilated with mildly reduced systolic function. Mild to moderate tricuspid regurgitation Moderately elevated right-sided pressures No pericardial effusion Technically difficult study due to body habitus and poor sound transmission Coronary angiography: 07/07/2005 Normal epicardial coronary arteries Normal global left ventricular systolic function Normal left heart pressures Assessment Diagnoses and all orders for this visit: Essential hypertension Chronic systolic heart failure (CMS/HCC) Renal insufficiency Plan Heart failure reduced ejection fraction -Unable to assess NYHA classification due to poor functional capacity. He was started on Entresto 24/26 mg twice daily while hospitalized. He is blood pressure is uncontrolled, will switch from metoprolol to tartrate to carvedilol 12.5 mg twice daily and monitor response. He has renal dysfunction, will therefore withhold uptitrating his Entresto or starting him on spir (more content not included)... [facility] Summary Purpose Family History No Family History Records FoundNo Family History Records FoundNo Family History Records FoundNo Family History Records FoundNo Family History Records FoundNo Family History Records Found Advance Directives No Advanced Directives Records FoundNo Advanced Directives Records FoundNo Advanced Directives Records FoundNo Advanced Directives Records FoundNo Advanced Directives Records FoundNo Advanced Directives Records Found Additional Source Comments (unrecognized sect ion and content) No Status Records FoundNo Status Records FoundNo Status Records FoundNo Status Records FoundNo Status Records FoundNo Status Records Found INFORMATION SOURCE (unrecogn ized section and content) DATE CREATED AUTHOR 09/11/2022 [facility] DATE CREATED AUTHOR AUTHOR'S ORGANIZ ATION 11/04/2022 [facility] DATE CREATED AUTHOR AUTHOR'S ORGANIZ ATION 11/04/2022 [facility] DATE CREATED AUTHOR AUTHOR'S ORGANIZ ATION 11/04/2022 Harrell Crosby [facility] DATE CREATED AUTHOR AUTHOR'S ORGANIZ ATION 01/07/2023 [facility] DATE CREATED AUTHOR AUTHOR'S ORGANIZ ATION 01/27/2023 [facility] Source Comments (unrecognize d section and content) In the event this informatio n is protected by the Federal Confidentiality of Alcohol and Drug Abuse Patient Records regulations: The Federal rules restrict any use of the information to criminally investigate or prosecute any alcohol or drug abuse patient.[facility] event this information is protected by the Federal Confidentiality of Alcohol and Drug Abuse Patient Records regulations: The Federal rules restrict any use of the information to criminally investigate or prosecute any alcohol or drug abuse patient.[facility] the event this information is protected by the Federal Confidentiality of Alcohol and Drug Abuse Patient Records regulations: The Federal rules restrict any use of the information to criminally investigate or prosecute any alcohol or drug abuse patient.[facility] the event this information is protected by the Federal Confidentiality of Alcohol and Drug Abuse Patient Records regulations: The Federal rules restrict any use of the information to criminally investigate or prosecute any alcohol or drug abuse patient.[facility] FOR RECORDS PERTAINING TO PATIENTS WHO ARE OR HAVE BEEN ENROLLED IN A CHEMICAL DEPENDENCY/SUBSTANCEABUSE PROGRAM, SOME INFORMATION MAY BE OMITTED. This clinical summary was aggregated from multiple sources. Caution should be exercised in using it in the provision of clinical care. This summary normalizes information from multiple sources, and as a consequence, information in this document may materially change the coding, format and clinical context of patient data. In addition, data may be omitted in some cases. CLINICAL DECISIONS SHOULD BE BASED ON THE PRIMARY CLINICAL RECORDS. [facility] [facility]. provides no warranty or guarantee of the accuracy or completeness of information in this document.
== END 2024-03-19 12:26 | disposition home or self-care (01) ==
LOC: EC 12:25
PROVIDERS: PCP Family Medicine; Visit Provider Podiatrist Foot & Ankle Surgery
DX: M79.672 Pain in left foot (principal); M77.32 Calcaneal spur, left foot; M21.42 Flat foot [pes planus] (acquired), left foot
CPT/HCPCS: 73630

== ENCOUNTER 2024-04-16 11:38 | Outpatient (OUT) | payer OTHER, SELFPAY ==
--- NOTE | 2024-04-16 | XR_ITS ---
The [address] [address] Patient Name: JAZ MEZA MRN: [id number] date: 1965 Sex: M Assigned Patient Location: [facility] Current Patient Location: Accession/Order Number: [id number] Exam Date: 04/16/2024 11:50 Report Date: 04/18/2024 06:26 At the request of: LEENA CAZARES Procedure: XR foot LT min 3V PROCEDURE: XR foot LT min 3V HISTORY: LEFT FOOT PAIN COMPARISON: XR foot left 03/19/2024 FINDINGS: BONES:Prior amputation of first toe at level of mid first metatarsal. Complete loss of plantar arch. Prior resection of head of second proximal phalanx. SOFT TISSUES:No visible soft tissue swelling. EFFUSION:None visible. OTHER: Negative. XR/XR foot LT min 3V IMPRESSION: 1. Stable surgical changes. 2. Marked pes planus; unchanged. 3. No appreciable acute abnormality. Electronically authenticated by: JOEL APARICIO Date: 04/18/2024 06:26
== END 2024-04-16 11:39 | disposition home or self-care (01) ==
LOC: RAD 11:38
PROVIDERS: PCP Family Medicine; Visit Provider Podiatrist Foot & Ankle Surgery
DX: M79.672 Pain in left foot (principal)
CPT/HCPCS: 73630

== ENCOUNTER 2024-04-16 12:51 | Outpatient (OUT) | payer OTHER, SELFPAY ==
[2024-04-16 13:18] LABS: Estimated Average Glucose 217 mg/dL; Glycohemoglobin A1C 9.2 % (4.5-6.2)
[2024-04-16 13:32] LABS: Basophils Absolute Auto 0.1 10^3/uL (0.0-0.1); Basophils Percent Auto 0.7 % (0.2-2.0); Eosinophils Absolute Auto 0.1 10^3/uL (0.0-0.7); Eosinophils Percent Auto 1.5 % (0.9-7.0); Hematocrit 42.3 % (42.0-54.0); Hemoglobin 14.1 g/dL (14.0-18.0); Immature Granulocytes Abs Auto 0.04 10^3/uL (0.00-0.03); Immature Granulocytes Pct Auto 0.6 % (0.0-0.5); Mean Corpuscular HGB Conc 33.3 g/dL (29.9-35.2); Mean Corpuscular Hemoglobin 29.1 pg (25.9-34.0); Mean Corpuscular Volume 87.2 fL (80.0-94.0); Monocytes Absolute Auto 0.4 10^3/uL (0.3-0.8); Monocytes Percent Auto 6.1 % (1.7-12.0); Neutrophils Absolute Auto 5.2 10^3/uL (1.4-6.5); Neutrophils Percent Auto 76.1 % (43.0-75.0); Platelet Count 203 10^3/uL (150-450); Red Blood Count 4.85 10^6/uL (4.70-6.10); Red Cell Distribution Width 13.2 % (11.0-15.0); White Blood Count 6.9 10^3/uL (4.0-11.0)
[2024-04-16 13:57] LABS: Alanine Aminotransferase 37 U/L (16-63); Albumin Globulin Ratio 0.9; Albumin Level 3.7 g/dL (3.4-5.0); Alkaline Phosphatase 100 U/L (46-116); Anion Gap 13.8; Aspartate Amino Transferase 20 U/L (15-37); BUN Creatinine Ratio 14.5; Bilirubin Total 0.8 mg/dL (0.2-1.0); Calcium 9.8 mg/dL (8.5-10.1); Carbon Dioxide 29.5 mmol/L (21.0-32.0); Chloride 97 mmol/L (98-107); Cholesterol 210 mg/dL (<=200); Estimated GFR (African America 43 (>=60 mL/min/1.73m^2); Estimated GFR (Non-African Ame 36 (>=60 mL/min/1.73m^2); Free T3 3.37 pg/mL (2.18-3.98); Globulin 4.1 g/dL; Glucose 398 mg/dL (74-106); HDL Cholesterol 35 mg/dL (40-60); Potassium 4.3 mmol/L (3.5-5.1); Sodium 136 mmol/L (136-145); Thyroid Stimulating Hormone 10.029 uIU/mL (0.358-3.740); Total Protein 7.8 g/dL (6.4-8.2); Triglycerides 481 mg/dL (<=150); Uric Acid 9.6 mg/dL (3.5-7.2); VLDL CHOLESTEROL 96.2 mg/dL
[2024-04-16 14:04] LABS: LDL Cholesterol Direct 86 mg/dL
[2024-04-16 14:15] LABS: Prostate Specific Antigen Scrn 0.83 ng/mL (<=4.00)
[2024-04-17 13:11] LABS: CA 19-9 19 U/mL (0-35)
== END 2024-04-16 12:52 | disposition home or self-care (01) ==
LOC: LAB 12:51
PROVIDERS: PCP Family Medicine; Visit Provider Family Medicine
DX: M79.672 Pain in left foot (principal); K81.1 Chronic cholecystitis; I50.32 Chronic diastolic (congestive) heart failure; E11.621 Type 2 diabetes mellitus with foot ulcer; I11.0 Hypertensive heart disease with heart failure; E03.9 Hypothyroidism, unspecified; Z12.5 Encounter for screening for malignant neoplasm of prostate
CPT/HCPCS: 36415; 73630; 80053; 80061; 83036; 83690; 83721; 84436; 84443; 84481; 84550; 85025; 86301; G0103

== ENCOUNTER 2024-08-26 07:33 | Outpatient (RCR) | payer OTHER, SELFPAY ==
[2024-08-12 13:20] LABS: Estimated GFR (African America 41 (>=60 mL/min/1.73m^2); Estimated GFR (Non-African Ame 34 (>=60 mL/min/1.73m^2)
[2024-08-12] MEDS: CEFTRIAXONE 2,000 MG in 0.9 % SODIUM CHLORIDE 100 ML 200 MG IV (13:44)
[2024-08-12 13:47] VITALS: BP 171/84; PULSE 113; TEMP 36.8; O2SAT 98
--- NOTE | 2024-08-12 14:09 | PC.NURSE ---
radiology in for portable chest x ray.
[2024-08-12] MEDS: VANCOMYCIN HCL 2,000 MG in 0.9 % SODIUM CHLORIDE 500 ML 250 MG IV (14:20)
--- NOTE | 2024-08-12 15:10 | PC.NURSE ---
1445 PCX results obtained, PICC in good placement. IV vanco began infusing via PICC. Excellent blood return. Appears to be resting reclined in bed. eyes closed, respirations with ease. awakens and speaks appropriately.
[2024-08-12 15:16] VITALS: BP 140/79; PULSE 77; TEMP 36.8; O2SAT 91
[2024-08-12 16:42] LABS: Glucometer 89 mg/dL (74-106)
--- NOTE | 2024-08-12 16:53 | PC.NURSE ---
1620 vancomycin infused, picc flushed with NS. CHG cap applied. Assisted to Bathroom to void. 1630 Assisted out of bathroom per wheelchair, diaphoretic, states his blood sugar is dropping. patient's attempted to use Freestyle estela, sensor had apparently fell off prior to arrival at hospital. Given Apple juice and pepsi, attempted to check blood glucose with accucheck, would not operate. Called Med surg to bring down glucometer. in meantime given peanutbutter and 2 slices of bread. request another pepsi states he just isn't back to normal 1640 blood sugar checked with Med/Surg glucometer, shows a blood sugar of 89, patient states he is feeling much better, not diaphoretic at this time. 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 in total had 1 applejuice, 2 slices of bread with peanutbutter and 2 12 ounce pepsi's. accompanies patient, released per wheelchair.
[2024-08-13 12:55] VITALS: BP 163/81; PULSE 93; TEMP 36.6; O2SAT 93
[2024-08-13] MEDS: CEFTRIAXONE 2,000 MG in 0.9 % SODIUM CHLORIDE 100 ML 200 MG IV (13:25)
[2024-08-13] MEDS: VANCOMYCIN HCL 2,000 MG in 0.9 % SODIUM CHLORIDE 500 ML 250 MG IV (14:00)
[2024-08-14 12:35] VITALS: BP 166/75; PULSE 90; TEMP 36.8; O2SAT 95
[2024-08-14] MEDS: CEFTRIAXONE 2,000 MG in 0.9 % SODIUM CHLORIDE 100 ML 200 MG IV (12:41)
[2024-08-14] MEDS: VANCOMYCIN HCL 2,000 MG in 0.9 % SODIUM CHLORIDE 500 ML 250 MG IV (13:22)
[2024-08-15 12:45] VITALS: BP 153/73; PULSE 73; O2SAT 94
[2024-08-15] MEDS: CEFTRIAXONE 2,000 MG in 0.9 % SODIUM CHLORIDE 100 ML 200 MG IV (13:09)
[2024-08-15] MEDS: VANCOMYCIN HCL 2,000 MG in 0.9 % SODIUM CHLORIDE 500 ML 250 MG IV (13:36)
[2024-08-15 13:40] LABS: Vancomycin Trough 11.9 ug/mL (5.0-20.0)
--- NOTE | 2024-08-15 15:55 | PC.NURSE ---
1330: Tolerating infusions without c/o. PICC line remains patent. Denies needs or c/o.
[2024-08-16 10:15] LABS: Estimated GFR (African America 59 (>=60 mL/min/1.73m^2); Estimated GFR (Non-African Ame 49 (>=60 mL/min/1.73m^2)
[2024-08-16] MEDS: CEFTRIAXONE 2,000 MG in 0.9 % SODIUM CHLORIDE 100 ML 200 MG IV (12:38)
[2024-08-16 12:41] VITALS: BP 152/76; PULSE 84; TEMP 36.7; O2SAT 92
[2024-08-16] MEDS: VANCOMYCIN HCL 2,000 MG in 0.9 % SODIUM CHLORIDE 500 ML 250 MG IV (13:07)
[2024-08-17] MEDS: CEFTRIAXONE 2,000 MG in 0.9 % SODIUM CHLORIDE 100 ML 200 MG IV (12:49)
[2024-08-17 12:50] VITALS: BP 168/85; PULSE 84; TEMP 36.3; O2SAT 94
[2024-08-17] MEDS: VANCOMYCIN HCL 2,000 MG in 0.9 % SODIUM CHLORIDE 500 ML 250 MG IV (13:30)
[2024-08-19] MEDS: CEFTRIAXONE 2,000 MG in 0.9 % SODIUM CHLORIDE 100 ML 200 MG IV (13:07)
--- NOTE | 2024-08-19 13:09 | PC.NURSE ---
picc intact rt upper arm/ noted reddness around dressing to lateral aspect of picc dressing, not under the dressing patient states he used an island dressing to hold ports of the picc. old dressing removed, new stat lock and CHG dressing applied. patient tolerated well. Excellent blood return noted
[2024-08-19 13:20] VITALS: BP 152/69; PULSE 87; TEMP 35.8; O2SAT 96
[2024-08-19] MEDS: VANCOMYCIN HCL 2,000 MG in 0.9 % SODIUM CHLORIDE 500 ML 250 MG IV (13:40)
[2024-08-20 12:30] VITALS: BP 200/107; PULSE 92; TEMP 36.5; O2SAT 93
[2024-08-20 12:35] VITALS: BP 174/85
[2024-08-20] MEDS: CEFTRIAXONE 2,000 MG in 0.9 % SODIUM CHLORIDE 100 ML 200 MG IV (12:44)
[2024-08-20] MEDS: VANCOMYCIN HCL 2,000 MG in 0.9 % SODIUM CHLORIDE 500 ML 250 MG IV (13:19)
[2024-08-21] MEDS: CEFTRIAXONE 2,000 MG in 0.9 % SODIUM CHLORIDE 100 ML 200 MG IV (09:54)
[2024-08-21 10:03] VITALS: BP 161/77; PULSE 89; TEMP 36.8; O2SAT 95
--- NOTE | 2024-08-21 10:11 | PC.NURSE ---
0954: IV Rocephin initiated at this time.
[2024-08-21] MEDS: VANCOMYCIN HCL 2,000 MG in 0.9 % SODIUM CHLORIDE 500 ML 250 MG IV (10:19)
[2024-08-22 12:30] VITALS: BP 152/74; PULSE 85; TEMP 36.7; O2SAT 98
[2024-08-22] MEDS: CEFTRIAXONE 2,000 MG in 0.9 % SODIUM CHLORIDE 100 ML 200 MG IV (12:35)
[2024-08-22] MEDS: VANCOMYCIN HCL 2,000 MG in 0.9 % SODIUM CHLORIDE 500 ML 250 MG IV (13:37)
[2024-08-22 13:48] LABS: Estimated GFR (African America >60 (>=60 mL/min/1.73m^2); Estimated GFR (Non-African Ame >60 (>=60 mL/min/1.73m^2); Vancomycin Trough 10.4 ug/mL (5.0-20.0)
--- NOTE | 2024-08-22 14:19 | PC.NURSE ---
1337: IV Vancomycin initiated at this time. Using sterile technique, dressing to PICC line changed. Pt. tolerated without c/o. Relays tenderness to reddened areas only.
--- NOTE | 2024-08-22 14:50 | PC.NURSE ---
Dr. Zazueta notified of redness around PICC line from allergic reaction. Digna calls in prescription for topical cream, pt. notified to package pick up at pharmacy. Relays understanding.
[2024-08-23] MEDS: CEFTRIAXONE 2,000 MG in 0.9 % SODIUM CHLORIDE 100 ML 200 MG IV (12:40)
[2024-08-23 12:47] VITALS: BP 177/78; PULSE 84; TEMP 36.6; O2SAT 94
--- NOTE | 2024-08-23 12:48 | PC.NURSE ---
PICC rt upper arm intact, site clear, stllhas very reddened area lateral rt upper arm near picc where he had put an island dressing on to hold picc ports, he has been orered silvadene cream, but it hasn't yet been filled by pharmacy
[2024-08-23] MEDS: VANCOMYCIN HCL 2,000 MG in 0.9 % SODIUM CHLORIDE 500 ML 250 MG IV (13:10)
[2024-08-24 12:50] VITALS: BP 165/89; PULSE 82; TEMP 36.8; O2SAT 92
[2024-08-24] MEDS: CEFTRIAXONE 2,000 MG in 0.9 % SODIUM CHLORIDE 100 ML 200 MG IV (13:02)
[2024-08-24] MEDS: VANCOMYCIN HCL 2,000 MG in 0.9 % SODIUM CHLORIDE 500 ML 250 MG IV (13:34)
--- NOTE | 2024-08-26 14:05 | PC.NURSE ---
Monday, Aug 26 You said Toribio Aguilera called off last Monday (a week ago). He called off again on Monday and Monday this week. He had told me his leg was better swelling had decreased (this was last Monday) His reason for calling off today was his leg was swollen. I didn't get to talk with him but I wanted to let you know he was missing appts. His last dose should be 4/7, but that was before missing last 2 doses. 1:43 PM Message sent at 1:43 PM. 4 days left Message expires in 4 days. Message status isRangeli Zazueta said still keep the same day, can you update me how it looks tomorrow? 1:46 PM Message sent at 1:46 PM. 4 days left Message expires in 4 days. You said ok
== END 2024-08-26 23:59 | disposition home or self-care (01) ==
LOC: INF 07:33
PROVIDERS: PCP Family Medicine; Visit Provider Family Medicine
DX: L03.90 Cellulitis, unspecified (principal)
CPT/HCPCS: 36415; 36569; 36592; 71045; 80202; 82565; 96365; 96366; 96367; C1887; J0696; J3370

== ENCOUNTER 2024-09-02 07:35 | Outpatient (RCR) | payer OTHER, SELFPAY ==
--- NOTE | 2024-08-27 12:43 | PC.NURSE ---
picc to rt upper arm intact, site clear, 0 cm external catheter exposed. does have reddened and dry skin lateral to picc dressing from patient placing adhesive pad, is currently using silvadene cream to reddness. old dressing removed. new stat lock and CHG dressing applied. patient tolerated well
--- NOTE | 2024-08-27 13:00 | PC.NURSE ---
rt upper arm picc intact site sl reddened, noted reddness to lateral side of dressing from where patient had used adhessive dressing, currently using silvadene cream. unable to flush or obtain blood return, dr stark notified.
[2024-08-27] MEDS: CEFTRIAXONE 2,000 MG in 0.9 % SODIUM CHLORIDE 100 ML 200 MG IV (13:09)
[2024-08-27] MEDS: ALTEPLASE 2 MG, WATER FOR INJECTION,STERILE 2.2 ML IVP (13:15)
--- NOTE | 2024-08-27 13:21 | PC.NURSE ---
1315 cath sergei administered via picc, using stopcock technique, able to get less than 1 ml of cath sergei instilled. educated patient on procedure, verbalizes understanding.
[2024-08-27] MEDS: VANCOMYCIN HCL 2,000 MG in 0.9 % SODIUM CHLORIDE 500 ML 250 MG IV (13:37)
--- NOTE | 2024-08-27 13:54 | PC.NURSE ---
1340 attempted to aspirate picc. unable, allowed longer dwell time. 1355 able to aspirate excellent blood return obtained. IV vancomycin initated.
[2024-08-28 12:35] VITALS: BP 125/62; PULSE 92; TEMP 36.8; O2SAT 95
[2024-08-28] MEDS: CEFTRIAXONE 2,000 MG in 0.9 % SODIUM CHLORIDE 100 ML 200 MG IV (12:48)
[2024-08-28] MEDS: VANCOMYCIN HCL 2,000 MG in 0.9 % SODIUM CHLORIDE 500 ML 250 MG IV (13:21)
[2024-08-29 12:30] VITALS: BP 159/89; PULSE 89; TEMP 36.6; O2SAT 93
[2024-08-29] MEDS: CEFTRIAXONE 2,000 MG in 0.9 % SODIUM CHLORIDE 100 ML 100 MG IV (12:37)
[2024-08-29] MEDS: VANCOMYCIN HCL 2,000 MG in 0.9 % SODIUM CHLORIDE 500 ML 250 MG IV (13:14)
[2024-08-30] MEDS: CEFTRIAXONE 2,000 MG in 0.9 % SODIUM CHLORIDE 100 ML 200 MG IV (12:37)
[2024-08-30 12:50] VITALS: BP 142/74; PULSE 89; TEMP 36.6; O2SAT 92
[2024-08-30] MEDS: VANCOMYCIN HCL 2,000 MG in 0.9 % SODIUM CHLORIDE 500 ML 150 MG IV (13:15)
[2024-08-30 13:45] LABS: Alanine Aminotransferase 30 U/L (16-63); Albumin Globulin Ratio 0.8; Albumin Level 3.2 g/dL (3.4-5.0); Alkaline Phosphatase 67 U/L (46-116); Anion Gap 11.1; Aspartate Amino Transferase 25 U/L (15-37); BUN Creatinine Ratio 16.3; Basophils Percent Auto 0.6 % (0.2-2.0); Bilirubin Total 0.6 mg/dL (0.2-1.0); Calcium 8.7 mg/dL (8.5-10.1); Carbon Dioxide 30.1 mmol/L (21.0-32.0); Chloride 104 mmol/L (98-107); Eosinophils Absolute Auto 0.1 10^3/uL (0.0-0.7); Eosinophils Percent Auto 2.6 % (0.9-7.0); Estimated GFR (African America >60 (>=60 mL/min/1.73m^2); Estimated GFR (Non-African Ame 54 (>=60 mL/min/1.73m^2); Globulin 3.9 g/dL; Glucose 115 mg/dL (74-106); Hemoglobin 11.6 g/dL (14.0-18.0); Immature Granulocytes Abs Auto 0.07 10^3/uL (0.00-0.03); Immature Granulocytes Pct Auto 1.3 % (0.0-0.5); Lymphocytes Absolute Auto 0.8 10^3/uL (1.2-3.8); Lymphocytes Percent Auto 15.2 % (20.5-60.0); Mean Corpuscular HGB Conc 31.4 g/dL (29.9-35.2); Mean Corpuscular Hemoglobin 29.4 pg (25.9-34.0); Mean Corpuscular Volume 93.7 fL (80.0-94.0); Mean Platelet Volume 8.9 fL (9.5-13.5); Monocytes Absolute Auto 0.3 10^3/uL (0.3-0.8); Monocytes Percent Auto 5.7 % (1.7-12.0); Neutrophils Percent Auto 74.6 % (43.0-75.0); Platelet Count 171 10^3/uL (150-450); Potassium 4.2 mmol/L (3.5-5.1); Red Blood Count 3.95 10^6/uL (4.70-6.10); Red Cell Distribution Width 14.3 % (11.0-15.0); Sodium 141 mmol/L (136-145); Total Protein 7.1 g/dL (6.4-8.2); White Blood Count 5.4 10^3/uL (4.0-11.0)
--- NOTE | 2024-09-04 09:47 | PC.NURSE ---
09/02/24 patient called and cancelled appt
== END 2024-09-25 23:59 | disposition home or self-care (01) ==
LOC: INF 07:35
PROVIDERS: PCP Family Medicine
DX: L03.90 Cellulitis, unspecified (principal)
CPT/HCPCS: 36592; 80053; 85025; 96365; 96366; 96367; 96375; J0696; J2997; J3370

== ENCOUNTER 2024-11-15 13:13 | Outpatient (OUT) | payer MEDICARE, SELFPAY ==
--- OUTSIDE RECORDS SUMMARY | 2024-10-07 13:30 | XMS_ITS ---
Author Organization [facility] in [place] Address [address] [place] [address] Care Team Providers Care Tipple Tender Name Role Phone Chang Zazueta Primary Care Provider Allergies Allergen (clinical drug ingredient) Drug/Non Drug Allergy documented on EMR Reaction Allergy Type Onset Date Status ciprofloxacin Cipro Unknown Drug Allergy Act harsh clindamycin Clindamycin HCl Unknown Drug Allergy Active linezolid Zyvox Unknown Drug Allergy Active Shellfish (FN) Shellfish-derived Products Unknown Drug Allergy Active Spider Bites Unknown Allergy Active REASON FOR VISIT annual wellness Medications Medication SIG (Take, Route, Frequency, Duration) Notes Start Date End Date Status Pen [place] 32G X 4 MM Use 1 pen needle via insulin pen 6 times daily DX E11.9 for 90 days 11/25/2022 Active Promethazine HCl 25 MG 1 tablet as neede d Orally q6h for 5 days 08/14/2024 Active SEROquel 50 MG 1 tablet at bedtime Orally Once a day for 30 days 03/20/2024 Active Silver sulfADIAZINE 1 % 1 application Ex ternally twice daily for 30 days Active Synthroid 100 MCG 1 tablet in the morn ing on an empty stomach Orally Once a day for 30 days 04/17/2024 Active Pantoprazole Sodium 40 mg TAKE 1 TABLET BY MOUTH ONCE DAILY for 90 Active Insulin Syringe/Needle use to inject insulin 4 times daily for 120 days DX:E11.9 07/31/2024 Active Nystatin 827956 UNIT/GM 1 application Ex ternally Twice a day Active Nystatin 242681 UNIT/GM 1 application Ex ternally Twice a day 08/28/2024 Active Ondansetron 4 MG 1 tablet on the tong ue and allow to dissolve Orally qid for 5 days 08/14/2024 Active FreeStyle Dusty 3 [place] - use device to monitor glucose multiple times daily DX E11.9 for 365 days 06/14/2023 Active Furosemide 40 mg TAKE 1 TABLET BY DEEPTI TH DAILY FOR 90 DAYS for 90 Active Gabapentin 600 mg TAKE 1 TABLET BY DEEPTI TH THREE TIMES DAILY for 30 Active HumaLOG KwikPen 100 UNIT/ML Inject per S ubcutaneous sliding scale- max units daily 120- DX e11.0 for 30 days Active hydrALAZINE HCl 50 MG 1 tablet with food Orally two times daily for 90 days Active FreeStyle Dusty 3 Plus Sensor - Use one sensor every 15 days to monitor glucose DX E11.9 for 90 days Active cloNIDine 0.3 MG/24HR 1 patch to skin on ce weekly for 30 days Active Desvenlafaxine Succinate ER 100 mg TAKE 1 TABLET BY MOUTH DAILY FOR 90 DAYS for 90 Active Eliquis 5 mg TAKE 1 TABLET BY DEEPTI TH TWICE DAILY for 30 Active Entresto 24-26 MG 1 tablet Orally Twic e a day for 90 days 06/05/2023 Active Basaglar KwikPen 100 UNIT/ML 300 units once daily Subcutaneous Active Acetaminophen 500 MG 2 tablets Orally ev ubaldo 8 hours PRN for 90 days Active amLODIPine Besylate 10 mg TAKE 1 TABLET BY MOUTH EVERY DAY for 30 Active Carvedilol 12.5 mg TAKE 1 TABLET BY DEEPTI TH TWICE DAILY WITH FOOD for 90 Active Social History Tobacco Use: Social History Observation Description Date Details (start date - stop date) Former Smoker NA - NA Tobacco Use/Smoking Question Answer Notes Patient is a former smoker How long has it been since you last smoked? > 10 years AUDIT-C (Standard) Question Answer Notes Did you have a drink containing alcohol in the p ast year? No Points 0 Interpretation Negative Vital Signs Height 73 in 10/07/2024 Blood pressure systolic 160 mm Hg 10/08/19 25 Blood pressure diastolic 90 mm Hg 025 Encounters Encounter Location Date Provider Diagnosis [facility] [address] [place] [address] 10/07/2024 Chang Eduardoelier Diabetes mellitus E1 1.9 ; GERD (gastroesophageal reflux disease) K21.9 ; Chronic diastolic (congestive) heart failure I50.32 ; Chronic kidney disease (CKD) stage G2/A1, mildly decreased glomerular filtration rate (GFR) between 60-89 mL/min/1.73 square meter and albuminuria creatinine ratio less than 30 mg/g N18.2 and Well adult Z00.00 Assessments Encounter Date Diagnosis (ICD Code) Assessment Notes Treatment Notes Treatment Clinical Notes Section Notes 10/07/2024 Diabetes mellitus (ICD-10 - E11.9) 10/07/2024 GERD (gastroesophagea l reflux disease) (ICD-10 - K21.9) 10/07/2024 Chronic diastolic (congestive) heart failure (ICD-10 - I50.32) 10/07/2024 Chronic kidney disease (CKD) stage G2/A1, mildly decreased glomerular filtration rate (GFR) between 60-89 mL/min/1.73 square meter and albuminuria creatinine ratio less than 30 mg/g (ICD-10 - N18.2) 10/07/2024 Well adult (ICD-10 - Z00.00) Plan Of Treatment Pending Test Test Name Order Date HEMOGLOBIN A1C (GLYCO) 10/07/2024 LIPID PANEL (CHOL/TRIG/HDL/LDL) 10/08/19 25 URIC ACID 10/07/2024 STOOL OCCULT BLOOD 10/07/2024 THYROID PANEL (T4/TSH/FREE T3) 5 PSA, SCREENING 10/07/2024 CMP (COMP MET SMITH) w/eGFR CKD-EPI 2024 CBC WITH DIFF 10/07/2024 Progress Notes * Toribio AGUILERA IDOB: [id number] (58 yo M)Acc No.[id number]:10/07/2024 Progress Note Patient: Toribio SENA I Provider: Brandon Zazueta ([facility])MD :1965 A ge:58 Y S ex:Male Date:10/07/2024 Address:[id number] Check In:05:22 PM ESTCheck O ut:06:32 PM EST Subjective: * Chief Complaints: * A nnual wellness * HPI: G eneral: well ss - Left leg sweeling not red or warm to mike touch - thjnks reaction tothe silicone - needs gel sleep dm - 87 right now - not on any short acting - since didnt eat Need bariatric surgery due to progeressive health issues - poorly controlled Dm. * ROS: E ENT: hearing changes d enies. v isual changes d enies.?non-healing mouth sores d enies. s wollen glands or neck lumps d enies. h oarseness d enies. s ore throat d enies. d ifficulty swallowing d enies. n ose bleeds d enies. n dwight congestion d enies. e ar ache d enies. e ar discharge?denies. r inging in ears d enies. l ight sensitivity d enies. e ye pain d enies. b lurring d enies. e ye irritation d enies. d ouble vision d enies.?vision loss d enies. G eneral/Constitutional: Sweats: D enies. F atigue d enies. S leep problems d enies. A norexia d enies. M alaise d enies. W eight loss d enies.?Fatigue or Weakness d enies. F ever or Chills d enies. C ardiovascular: Shortness of Breath w/lying flat d enies. L ightheadedness/dizziness d enies. C hest tightness/ heavy pressure d enies. S welling of legs, ankles, or feet d enies. W aking up with shortness of breath d enies. C hest pain denies. P alpitations d enies. W eight gain d enies. R espiratory: Chronic or frequent cough d enies. C oughing up blood?denies. D ifficulty breathing d enies. P roductive cough d enies. S noring?denies. S hortness of breath that awakens from sleep (PND) d enies. C hest pain d enies. S putum production d enies. W heezing d enies. M usculoskeletal: Joint pain d enies. J oint Fluid d enies. B ack pain d enies. K nee pain d enies. N miranda pain d enies. J oint Stiffness d enies. M uscle cramps d enies. W eakness of muscles d enies. A rthritis d enies. M uscle aches d enies. P ain in shoulder(s) d enies. S wollen joints d enies. * Active Problem List G89.29 Other chronic pain Modified On:08/02/2022 Status:confirmed M19.079 Ankle arthritis Modified On:08/02/2022U Status:confirmed M19.079 Arthritis of subtala r joint Modified On:08/02/2022U Status:confirmed T14.8XXA Hematoma Modified On:09/20/2022U Status:confirmed E11.9 Diabetes mellitus Modified On:07/05/2023 Status:confirmed K21.9 GERD (gastroesophage al reflux disease) Modified On:08/24/2022U Status:confirmed I50.32 Chronic diastolic (c ongestive) heart failure Modified On:08/24/2022U Status:confirmed N18.2 Chronic kidney disea se (CKD) stage G2/A1, mildly decreased glomerular filtration rate (GFR) between 60-89 mL/min/1.73 square meter and albuminuria creatinine ratio less than 30 mg/g Modified On:01/04/2023U Status:confirmed I50.30 Diastolic CHF Modified On:08/24/2022U Status:confirmed D50.9 Anemia, iron deficie ncy Modified On:08/24/2022 Status:confirmed E11.621 Type 2 diabetes linnea itus with foot ulcer Modified On:04/05/2023U Status:confirmed M86.271 Subacute osteomyelit is of right foot Modified On:08/31/2022U Status:confirmed E11.40 Type 2 diabetes linnea itus with diabetic neuropathy, unspecified Modified On:09/13/2022U Status:confirmed 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 Modified On:09/13/2022U Status:confirmed T81.89XA Delayed surgical wou nd healing Modified On:10/06/2022U Status:confirmed I10 Hypertension Modified On:07/05/2023U Status:confirmed K21.9 Gastro-esophageal re flux disease without esophagitis Modified On:10/13/2022 Status:confirmed M86.9 Osteomyelitis of ank le Modified On:10/20/2022 Status:confirmed 250.80 Diabetic foot ulcer Modified On:10/20/2022 Status:confirmed M14.679 Charcot ankle Modified On:10/20/2022 Status:confirmed Z79.4 Long-term insulin us e Modified On:10/31/2022 Status:confirmed M86.669 Chronic osteomyeliti s involving lower leg Modified On:10/31/2022 Status:confirmed E66.01 Morbid obesity Modified On:01/04/2023 Status:confirmed L03.115 Cellulitis of right ankle Modified On:01/03/2023 Status:confirmed M14.671 Charcot's joint, rig ht ankle and foot Modified On:01/03/2023 Status:confirmed 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 Modified On:01/03/2023U Status:confirmed M86.271 Subacute osteomyelit is, right ankle and foot Modified On:01/03/2023 Status:confirmed E11.42 Diabetes mellitus wi th diabetic polyneuropathy Modified On:01/03/2023 Status:confirmed I48.91 Unspecified atrial f ibrillation Modified On:01/04/2023 Status:confirmed I10 BP (high blood press ure) Modified On:01/04/2023 Status:confirmed K80.20 Cholelithiases Modified On:07/05/2023U Status:confirmed E03.9 Hypothyroid Modified On:07/14/2023U Status:confirmed M79.672 Left foot pain Modified On:03/15/2024U Status:confirmed M14.672 Charcot's joint, lef t ankle and foot Modified On:03/19/2024U Status:confirmed E11.42 Type 2 diabetes linnea itus with diabetic polyneuropathy Modified On:03/19/2024U Status:confirmed K81.1 Chronic cholecystiti s Modified On:03/20/2024U Status:confirmed L03.90 Cellulitis Modified On:08/05/2024W/U Status:confirmed * Medical History: * Surgical History: L eft foot, 3rd toe amputation at DIP, tendon repair of 2nd and 4th toes, bone removal great toe 2Right ankle fusion 03/01/2019Right ankle fusion revision 2Cataract extraction OU Right foot amputation 01/09/23right below the knee ampuation * Hospitalization/Major Diagno stic Procedure: s ee above * Family History: F ather: . M other: alive 86 yrs. B rother(s): alive. S ister(s): alive.?1 brother(s) , 3 sister(s) - healthy. . * Social History: T obacco Use: T obacco Use/Smoking P atient is a f ormer smoker H ow long has it been since you last smoked??> 10 years D rug/Alcohol: A DEBRA-C (Standard) D id you have a drink containing alcohol in the past year? N o P oints 0 I nterpretation N egative * Medications: T akingAcetaminophen 500 MG Tablet 2 tablets Orally every 8 hours PRN amLODIPine Besylate 10 mg Tablet TAKE 1 TABLET BY MOUTH EVERY DAY Basaglar KwikPen(Insulin Glargine) 100 UNIT/ML Solution Pen-injector 300 units once daily Subcutaneous Carvedilol 12.5 mg Tablet TAKE 1 TABLET BY MOUTH TWICE DAILY WITH FOOD cloNIDine 0.3 MG/24HR Patch Weekly 1 patch to skin once weekly Desvenlafaxine Succinate ER 100 mg Tablet Extended Release 24 Hour TAKE 1 TABLET BY MOUTH DAILY FOR 90 DAYS Eliquis(Apixaban) 5 mg Tablet TAKE 1 TABLET BY MOUTH TWICE DAILY Entresto(Sacubitril-Valsartan) 24-26 MG Tablet 1 tablet Orally Twice a day FreeStyle Dusty 3 Plus Sensor(Continuous Glucose Sensor) - Miscellaneous Use one sensor every 15 days to monitor glucose DX E11.9 FreeStyle Dusty 3 [place](Continuous Glucose Tax Consultant) - Device use device to monitor glucose multiple times daily DX E11.9 Furosemide 40 mg Tablet TAKE 1 TABLET BY MOUTH DAILY FOR 90 DAYS Gabapentin 600 mg Tablet TAKE 1 TABLET BY MOUTH THREE TIMES DAILY HumaLOG KwikPen(Insulin Lispro (1 Unit Dial)) 100 UNIT/ML Solution Pen-injector Inject per Subcutaneous sliding scale- max units daily 120- DX e11.0 hydrALAZINE HCl 50 MG Tablet 1 tablet with food Orally two times daily Insulin Syringe/Needle use to inject insulin 4 times daily DX:E11.9Nystatin 228314 UNIT/GM Powder 1 application Externally Twice a day Nystatin 675773 UNIT/GM Powder 1 application Externally Twice a day Ondansetron 4 MG Tablet Disintegrating 1 tablet on the tongue and allow to dissolve Orally qid Pantoprazole Sodium 40 mg Tablet Delayed Release TAKE 1 TABLET BY MOUTH ONCE DAILY Pen [place] 32G X 4 MM Miscellaneous Use 1 pen needle via insulin pen 6 times daily DX E11.9 Promethazine HCl 25 MG Tablet 1 tablet as needed Orally q6h SEROquel(QUEtiapine Fumarate) 50 MG Tablet 1 tablet at bedtime Orally Once a day Silver sulfADIAZINE 1 % Cream 1 application Externally twice daily Synthroid(Levothyroxine Sodium) 100 MCG Tablet 1 tablet in the morning on an empty stomach Orally Once a day Medication List reviewed and reconciled with the patientTaking Acetaminophen 500 MG Tablet 2 tablets Orally every 8 hours PRN Taking amLODIPine Besylate 10 mg Tablet TAKE 1 TABLET BY MOUTH EVERY DAY Taking Basaglar KwikPen(Insulin Glargine) 100 UNIT/ML Solution Pen-injector 300 units once daily Subcutaneous Taking Carvedilol 12.5 mg Tablet TAKE 1 TABLET BY MOUTH TWICE DAILY WITH FOOD Taking cloNIDine 0.3 MG/24HR Patch Weekly 1 patch to skin once weekly Taking Desvenlafaxine Succinate ER 100 mg Tablet Extended Release 24 Hour TAKE 1 TABLET BY MOUTH DAILY FOR 90 DAYS Taking Eliquis(Apixaban) 5 mg Tablet TAKE 1 TABLET BY MOUTH TWICE DAILY Taking Entresto(Sacubitril- Valsartan) 24-26 MG Tablet 1 tablet Orally Twice a day Taking FreeStyle Dusty 3 Plus Sensor(Continuous Glucose Sensor) - Miscellaneous Use one sensor every 15 days to monitor glucose DX E11.9 Taking FreeStyle Dusty 3 [place](Continuous Glucose Tax Consultant) - Device use device to monitor glucose multiple times daily DX E11.9 Taking Furosemide 40 mg Tablet TAKE 1 TABLET BY MOUTH DAILY FOR 90 DAYS Taking Gabapentin 600 mg Tablet TAKE 1 TABLET BY MOUTH THREE TIMES DAILY Taking HumaLOG KwikPen(Insulin Lispro (1 Unit Dial)) 100 UNIT/ML Solution Pen-injector Inject per Subcutaneous sliding scale- max units daily 120- DX e11.0 Taking hydrALAZINE HCl 50 MG Tablet 1 tablet with food Orally two times daily Taking Insulin Syringe/Needle use to inject insulin 4 times daily DX:E11.9Taking Nystatin 060659 UNIT/GM Powder 1 application Externally Twice a day Taking Nystatin 039954 UNIT/GM Powder 1 application Externally Twice a day Taking Ondansetron 4 MG Tablet Disintegrating 1 tablet on the tongue and allow to dissolve Orally qid Taking Pantoprazole Sodium 40 mg Tablet Delayed Release TAKE 1 TABLET BY MOUTH ONCE DAILY Taking Pen [place] 32G X 4 MM Miscellaneous Use 1 pen needle via insulin pen 6 times daily DX E11.9 Taking Promethazine HCl 25 MG Tablet 1 tablet as needed Orally q6h Taking SEROquel(QUEtiapine Fumarate) 50 MG Tablet 1 tablet at bedtime Orally Once a day Taking Silver sulfADIAZINE 1 % Cream 1 application Externally twice daily Taking Synthroid(Levothyroxine Sodium) 100 MCG Tablet 1 tablet in the morning on an empty stomach Orally Once a day Medication List reviewed and reconciled with the patient * Allergies: C lindamycin HClZyvoxCiproShellfish-derived ProductsSpider Bitesno[Allergies Verified] Objective: * Vitals: W t: Not Taken - Declined by Patient, Ht: 73 in, BP:160/90mm Hg, Ht-cm: 185.42 cm. * Examination: P hysical Exam: GENERAL: w ell developed, well nourished, in no acute distress. HEAD: n ormocephalic/atraumatic. EYES: p upils equal, round and reactive to light, conjunctivae and sclerae normal. EARS: n o deformity or lesion of external ear, canals and TM appear normal bilaterally, TM's intact, not inflamed with normal light reflex, hearing grossly normal to conversational speech. NOSE: n o deformity, discharge, inflammation, or lesions.? MOUTH: m ucous membranes moist, normal oropharynx and posterior pharynx without lesions or exudates, tongue normal, dentition normal. NECK: n miranda supple, no masses or palpable cervical nodes, trachea midline, thyroid without nodules, masses, tenderness, or enlargement. CHEST: n o chest wall deformity, no chest wall tenderness.? LUNGS: n ormal respiratory effort and clear to auscultation, no wheezes, rales, or rhonchi, good air exchange. CARDIO: r egular rate and rhythm, normal S1 and S2, nor murmur, rub, or gallop. PULSES: n ormal capillary refill. ABDOMEN: s oft, non-distended, non-tender, no masses. MUSCULOSKELETAL: n o deformity or scoliosis noted, normal range of motion, joints normal, no erythema, edema, effusion, or ecchymosis. EXTREMITY: n o clubbing, cyanosis, edema, or deformity with normal ROM in both upper and lower bilateral extremities. NEUROLOGIC: g rossly normal. SKIN: n o rashes, ulcerations, or suspicious lesions. LYMPH NODES: n o cervical adenopathy, nodes normal. MENTAL STATUS: a lert and oriented x3, normal mood and affect. Assessment: * Assessment: 1. D iabetes mellitus - E11.9 (Primary) 2 . G ERD (gastroesophageal reflux disease) - K21.9 3 . C hronic diastolic (congestive) heart failure - I50.32 4 . W ell adult - Z00.00 5 . C hronic kidney disease (CKD) stage G2/A1, mildly decreased glomerular filtration rate (GFR) between 60-89 mL/min/1.73 square meter and albuminuria creatinine ratio less than 30 mg/g - N18.2 Plan: * Treatment: * Procedure Codes: * * Sign off status: Completed Visit Status: C HK (Check Out) true * Provider: Brandon Zazueta ([facility])MD Date: 0 10/07/2024 Generated for Manfred hatfield/Nitesh/eTransmitting on: 0 11/15/2024 01:15 PM EDT History and Physical Notes * HPI (History of Present Illness) Category Sub-Category Detail Notes Category Not es General well ss - Left leg sweeling not red or warm to mike touch - thjnks reaction tothe silicone - needs gel sleep dm - 87 right now - not on any short acting - since didnt eat Need bariatric surgery due to progeressive health issues - poorly controlled Dm Examination Category Sub-Category Detail Notes Category Not es Physical Exam GENERAL: well developed, well nourished, in no acute distress HEAD: normocephalic/atraum atic EYES: pupils equal, round and reactive to light, conjunctivae and sclerae normal EARS: no deformity or lesi on of external ear, canals and TM appear normal bilaterally, TM's intact, not inflamed with normal light reflex, hearing grossly normal to conversational speech NOSE: no deformity, discha rge, inflammation, or lesions MOUTH: mucous membranes domingo st, normal oropharynx and posterior pharynx without lesions or exudates, tongue normal, dentition normal NECK: neck supple, no mass es or palpable cervical nodes, trachea midline, thyroid without nodules, masses, tenderness, or enlargement CHEST: no chest wall deform ity, no chest wall tenderness LUNGS: normal respiratory e ffort and clear to auscultation, no wheezes, rales, or rhonchi, good air exchange CARDIO: regular rate and rhy thm, normal S1 and S2, nor murmur, rub, or gallop PULSES: normal capillary ref ill ABDOMEN: soft, non-distended, non-tender, no masses RECTAL: MUSCULOSKELETAL: no deformity or scol iosis noted, normal range of motion, joints normal, no erythema, edema, effusion, or ecchymosis EXTREMITY: no clubbing, cyanosi s, edema, or deformity with normal ROM in both upper and lower bilateral extremities NEUROLOGIC: grossly normal SKIN: no rashes, ulceratio ns, or suspicious lesions LYMPH NODES: no cervical adenopat hy, nodes normal MENTAL STATUS: alert and oriented x 3, normal mood and affect
--- OUTSIDE RECORDS SUMMARY | 2024-11-05 12:06 | XMS_ITS ---
Author Organization The [facility] in [place] Address [address] [place] [address] Care Team Providers Care Senior Software Engineering Manager Name Role Phone Chang Zazueta Primary Care Provider REASON FOR VISIT script Medications Medication SIG (Take, Route, Fr equency, Duration) Notes Start Date End Date Status Dexcom G7 Sensor - used to monitor bloo d sugar dx E11.9 for 10 days 11/06/2024 Active Dexcom G7 Stone Carriage Operator - used to monitor blo od sugar dx:E11.9 for 365 days 11/06/2024 Active Encounters Encounter Location Date Provider Diagnosis [address] [address] 11/05/2024 hCang Zazueta Plan Of Treatment Medication Medication Name Sig Start Date Stop Date Notes Dexcom G7 Sensor - used to monitor bloo d sugar dx E11.9 for 10 days 11/06/2024 Dexcom G7 Stone Carriage Operator - used to monitor blo od sugar dx:E11.9 for 365 days 11/06/2024 Progress Notes * Toribio MEZA IDOB: [id number] (58 yo M)Acc No.[id number]:11/05/2024 Patient: Toribio SENA Macho :1965 A ge:58 Y S ex:Male Phone: Address:[address] [facility] [facility], [place], [address] * Refills Start Dexcom G7 Stone Carriage Operator Device, -, 1, used to monitor blood sugar dx:E11.9, 365 days, Refills=0 Start Dexcom G7 Sensor Miscellaneous, -, 3, used to monitor blood sugar dx E11.9, 10 days, Refills=11 * true * Date: Generated for Manfred hatfield/Nitesh/Gatito on: 0 11/15/2024 01:16 PM EDT
--- OUTSIDE RECORDS SUMMARY | 2024-11-06 10:22 | XMS_ITS ---
Author Organization The [facility] in [place] Address [address] [place] [address] Care Team Providers Care Home Health Lvn Name Role Phone Chang Zazueta Primary Care Provider [phone] REASON FOR VISIT Eliquis switch- DECLINED Encounters Encounter Location Date Provider Diagnosis [facility] [address] [place] [address] 11/06/2024 Chang Zazueta Plan Of Treatment No Information Progress Notes * Toribio MEZA IDOB: [id number] (58 yo M)Acc No.[id number]:11/06/2024 Patient: Vignesh BARR Toribio Pritchard :1965 A ge:58 Y S ex:Male Phone: Address:[address] [facility], [place], [address] * true * Date: Generated for Manfred hatfield/Nitesh/eTransmitting on: 0 11/15/2024 01:16 PM EDT
--- OUTSIDE RECORDS SUMMARY | 2024-11-15 13:15 | XMS_ITS ---
Author Organization [facility] Care Team Providers Care Assistant Brand Manager Name Role Phone Osman Higgins Unavailable Unavailable Frederic [place] Unavailable Unavailable Aarti Ogden Unavailable Unavailable Allergies and adverse reactions Code CodeSystem Substance Reaction Severity StartDate Concern Status Shell Fish Itching of skin (code- 894567444, SNOMED CT) Unknown 01/24/2023 active 2582 RXNORM Clindamycin Contact dermati tis (code- 13731116, SNOMED CT) Unknown 01/24/2023 active 2551 RXNORM Ciprofloxacin Contact dermat itis (code- 50741261, SNOMED CT) Unknown 01/24/2023 active Care Team Name Role Address Phone Organization Dates Osman Higgins [facility] [address], [place], [address], [place] (Office): : [facility] 01/26/2023 - 03/28/2023 Frederic Lagos [address], [place], [address], [place] (Office): [facility] 01/26/2023 - 03/28/2023 Aarti Ogden [address], [place], [address], [place] (Office): : [facility] 01/26/2023 - 03/28/2023 Goals Section Goals Description Status Target Date No s/s pf dehydration/electrolyte imbalance flui d overload Active 05/05/2023 Plan setup for Advanced Directives to be followe d. Active 05/05/2023 Resident will not receive me dication(s) and/or substances known to cause allergic reaction Active 05/05/2023 Resident will tolerate least restrictive diet consistencies with no s/s of aspiration Active 05/05/2023 The resident will be able to verbalize/communicate required assistance post-discharge and the services required to meet needs before discharge Active 05/05/2023 The resident will be free fr om any s/sx of hyperglycemia through the review date. Active 05/05/2023 The resident will be free fr om any s/sx of hypoglycemia through the review date. Active 05/05/2023 The resident will be free fr om discomfort or adverse reactions related to anticoagulant use through the review date. Active 05/05/2023 The resident will be free fr om discomfort or adverse reactions related to antidepressant therapy through the review date. Active 05/05/2023 The resident will be free of any discomfort or adverse side effects of diuretic therapy through the review date. Active 1 07/06/2022 The resident will be free of minor injury throug h the review date. Active 05/05/2023 The resident will comply wit h mouth care at least daily through review date. Active 05/05/2023 The resident will display op timal breathing patterns daily through review date. Active 05/05/2023 The resident will exhibit ad equate coping skills dealing with loss of limb and rehabilitation through the review date. Active The resident will exhibit in dicators of depression, anxiety or sad mood less than daily by review date. Active 05/05/2023 The resident will express sa tisfaction with type of activities and level of activity involvement when asked through the review date. Active 05/05/2023 The resident will have clear lung sounds, heart rate and rhythm within normal limits through the review date. Active 05/05/20 23 The resident will have gradu al weight gain/loss to within 10% of IBW for sex and height (SPECIFY) range by review date. Active 05/05/2023 The resident will have intac t skin, free of redness, blisters or discoloration by/through review date. Active 05/05/2023 The resident will improve cu rrent level of function in ADL's through the review date. Active 05/05/2023 The resident will remain luis e from discomfort, complications or s/sx related to dx of GERD through review date. Active 2022 The resident will remain luis e from s/sx of hypertension through the review date. Active 05/05/2023 The resident will remain luis e of complications related to hypertension through review date. Active 05/05/2023 The resident will remain luis e of s/sx of distress, symptoms of depression, anxiety or sad mood by/through review date. Active 05/05/2023 The resident will remain luis e of s/sx or complications related to anemia through review date. Active 05/05/2023 Immunizations Immunization Status Vaccine Details Vaccine Code CodeSystem Date Notes TB 1 Step Mantoux (PPD) new tuberculin skin test; unspecified formulation 98 CVX created date: 01/29/2023 consent date: 01/29/2023 Pneumovax cancelled Pneumococcal conjugate vaccine 15-valent (PCV15), polysaccharide [id number] conjugate, adjuvant, preservative free 215 CVX created date: 04/11/2023 consent date: 04/11/2023 Influenza-Flucelv ax Qaudrivalant 0.5 PFS 10/bx completed Influenza, split virus, quadrivalent, injectable, contains preservative lotNumber: [id number] expiry: 2023 Mfg: Seqirus Given 0.5 ml Left Deltoid intramuscularly 158 CVX created date: 03/08/2023 consent date: 03/08/2023 administere d date: 03/06/2023 Mental Status Section Date Assessment Total Score Description 03/28/2023 BIMS 15 cognitively int act CAM 0 No delirium ind icated PHQ-9 00 02/02/2023 BIMS 15 cognitively int act CAM 0 No delirium ind icated PHQ-9 01 minimal depress ion Problems Problem # Description Date of onset Resolved Date Code CodeSystem Concern Status 1 MIXED HYPERLIPIDEMIA [address] active 2 ABNORMAL POSTURE [address] active 3 DEFICIENCY OF OTHER VITAMINS [address] active 4 ENCOUNTER FOR OTHER SPECIFIED AFTERCARE [address] active 5 HYPERLIPIDEMIA, UNSPECIFIED 3 02/26/[address] completed 6 MUSCLE WEAKNESS (GENERALIZED) [address] active 7 OTHER ABNORMALITIES OF GAIT AND MOBILITY [address] active 8 ANEMIA IN CHRONIC KIDNEY DISEASE [address] active 9 CHRONIC KIDNEY DISEASE, STAGE 3 UNSPECIFIED [address] active 10 CHRONIC SYSTOLIC (CONGESTIVE) HEART FAILURE [address] active 11 CONSTIPATION, UNSPECIFIED [address] active 12 ENCOUNTER FOR ORTHOPEDIC AFTERCARE FOLLOWING SURGICAL AMPUTATION [address] active 13 GASTRO-ESOPHAGEAL REFLUX DISEASE WITHOUT ESOPHAGITIS [address] active 14 HY[address]KALEMIA [address] active 15 [address]ALCEMIA [address] active 16 DETENTION (CURRENT) USE OF ANTICOAGULANTS [address] active 17 HOMEMAKER COMPANION (CURRENT) USE OF INSULIN [address] active 18 MAJOR DEPRESSIVE DISORDER, SINGLE EPISODE, UNSPECIFIED [address] active 19 PAIN, UNSPECIFIED [address] active 20 PERSONAL HISTORY OF DISEASES OF THE SKIN AND SUBCUTANEOUS TISSUE [address] active 21 PERSONAL HISTORY OF OTHER DISEASES OF THE MUSCULOSKELETAL SYSTEM AND CONNECTIVE TISSUE [address] active 22 PERSONAL HISTORY OF OTHER VENOUS THROMBOSIS AND EMBOLISM [address] active 23 ACQUIRED ABSENCE OF RIGHT LEG BELOW KNEE [address] active 24 CHARCOT'S JOINT, UNSPECIFIED ANKLE AND FOOT [address] active 25 ESSENTIAL (PRIMARY) HYPERTENSION [address] active 26 MORBID (SEVERE) OBESITY DUE TO EXCESS CALORIES [address] active 27 OBSTRUCTIVE SLEEP APNEA (ADULT) (PEDIATRIC) [address] active 28 OTHER PRURITUS [address] active 29 TYPE 2 DIABETES MELLITUS WITHOUT COMPLICATIONS [address] active 30 UNSPECIFIED ATRIAL FIBRILLATION [address] active Reason for Referral No Reasons for Referral Entered Social History Social History Observation Description Start Date End Date Code Code System Current Smoking Status Tobacco smoking consumption unknown 204386352 SNOMED CT Sex Assigned At Male 1965 41795-2 [facility] Gender Identity Male [id number] [address] Vital Signs Code Code System Vitals Name Values and Units Timing Information 20830-4 [facility] Pain Level Value=0.0 03/28/2023 8462-4 [facility] Blood Pressure-Diastolic Value=74 Un its=mmHg 03/28/2023 8480-6 [facility] Blood Pressure-Systolic Bkkoo=769 Un its=mmHg 03/28/2023 8867-4 [facility] Heart rate Value=78.0 Units=/min 2339-0 [facility] Blood Sugar Khmdw=179.0 Units=mg/dL 03/28/2023 9279-1 [facility] Respiratory Rate Value=19.0 Units=/m in 03/28/2023 8310-5 [facility] Body Temperature Value=97.9 Units= F 03/28/2023 26540-2 [facility] O2 % BldC Oximetry Value=96.0 Units= % 03/28/2023 65322-0 [facility] Weight Nlaog=518.0 Units=Lbs 05/2022 8302-2 [facility] Height Value=74.0 Units=Inches 02/08/2023
--- OUTSIDE RECORDS SUMMARY | 2024-11-15 13:16 | XMS_ITS | Encounter Summary ---
Author Organization [facility] Address [address] [place] [address] Phone Care Team Providers Care Masonry Inspector Name Role Phone Unavailable Primary Care Provider Unavailabl e Encounter Details Date Type Department Care Team (Late st Contact Info) Description 01/04/2023 Scanned Document [facility] [address] [place] [address] Conversion, Onbase Social History Tobacco Use Types Packs/Day Years Used Date Smoking Tobacco: Never Assessed Sex and Gender Information Value Date Recorded Sex Assigned at Not on file Legal Sex Male 3:56 PM EDT Gender Identity Not on file Sexual Orientation Not on file documented as of this encounter Plan of Treatment Not on file documented as of this encounter Procedures Procedure Name Priority Date/Time Associated Diagnosis Comments ECHOCARDIOGRAM 01/04/2023 documented in this encounter Results * ECHOCARDIOGRAM (01/04/2023) Narrative 01/04/2023 Ordered by an unspecified provider. us Onbase Conversion CV ECHO PROCEDURES Final Resul t documented in this encounter Visit Diagnoses Not on filedocumented in this encounter
--- OUTSIDE RECORDS SUMMARY | 2024-11-15 13:16 | XMS_ITS | Clinical Summary ---
Author Organization [facility] Address [address] [place] [address] Care Team Providers Care Airfield Defence Guard Name Role Phone Unavailable Primary Care Provider Unavailabl e Social History Tobacco Use Types Packs/Day Years Used Date Smoking Tobacco: Never Assessed Sex and Gender Information Value Date Recorded Sex Assigned at Not on file Legal Sex Male 7:17 PM EDT Gender Identity Not on file Sexual Orientation Not on file Last Filed Vital Signs Vital Sign Reading Time Taken Comments Blood Pressure - - Pulse - - Temperature - - Respiratory Rate - - Oxygen Saturation - - Inhaled Oxygen Concentration - - Weight 209 kg (460 lb) 12/13/2021 12:00 PM EDT Height 185.4 cm (6' 1 ) 12/13/2021 12:00 PM EDT Body Mass Index 60.69 12/13/2021 12:00 PM EDT Plan of Treatment Not on file
--- OUTSIDE RECORDS SUMMARY | 2024-11-15 13:16 | XMS_ITS | Clinical Summary ---
Author Organization [facility] Address [address] [place] [address] Phone Care Team Providers Care Lockstitch Machine Operator Name Role Phone Unavailable Primary Care Provider Unavailabl e Social History Tobacco Use Types Packs/Day Years Used Date Smoking Tobacco: Never Assessed Sex and Gender Information Value Date Recorded Sex Assigned at Not on file Legal Sex Male 3:56 PM EDT Gender Identity Not on file Sexual Orientation Not on file Plan of Treatment Health Maintenance Due Date Last Done Comments CT Colonography 1965 Colonoscopy 1965 Colorectal Cancer Screening 1965 FIT-DNA (Cologuard) 1965 FIT 1965 HIV Screening 1965 Lipid Panel 1965 Sigmoidoscopy 1965 Yearly Adult Physical 1965 MMR Vaccines (1 of 1 - Stand gerardo series) 11/25/1964 Hepatitis C Screening 11/25/1981 DTaP/Tdap/Td Vaccines (1 - Tdap) 11/25/1985 Pneumococcal Vaccine (1 of 1 - PCV) 11/25/2013 Zoster Vaccines (1 of 2) 11/25/2013 COVID-19 Vaccine (1 - 2023-2 5 season) 2024 Influenza Vaccine (Season Ended) 2025 RSV High Risk: (Elderly (60+ ) or Population) (1 - 1-dose 75+ series) 11/25/2038 HIB Vaccines Aged Out No longer eligi ble based on patient's age to complete this topic HPV Vaccines Aged Out No longer eligi ble based on patient's age to complete this topic Hepatitis A Vaccines Aged Out No long er eligible based on patient's age to complete this topic Hepatitis B Vaccines Aged Out No long er eligible based on patient's age to complete this topic IPV Vaccines Aged Out No longer eligi ble based on patient's age to complete this topic Meningococcal Vaccine Aged Out No samantha ar eligible based on patient's age to complete this topic Rotavirus Vaccines Aged Out No longer eligible based on patient's age to complete this topic
--- OUTSIDE RECORDS SUMMARY | 2024-11-15 13:16 | XMS_ITS | Patient Health Record ---
Author Organization [facility] in [place] Address [address] [place] [address] Care Team Providers Care Retail Brand Ambassador Name Role Phone Chang Zazueta Primary Care Provider [phone] Leena Myers Unavailable [phone] Allergies Allergen (clinical drug ingredient) Drug/Non Drug Allergy documented on EMR Reaction Allergy Type Onset Date Status ciprofloxacin Cipro Unknown Drug Allergy Act harsh clindamycin Clindamycin HCl Unknown Drug Allergy Active linezolid Zyvox Unknown Drug Allergy Active Shellfish (FN) Shellfish-derived Products Unknown Drug Allergy Active Spider Bites Unknown Allergy Active Results Component Value Reference Range Notes DIRECT LDL Reviewed date:04/16/2024 08:23:03 PM Interpretation: Performing Lab: Notes/Report: [facility] , LDL Cholesterol Direct 86 <100 mg/dl OPTIMAL 100-129 mg/dl NEAR OR ABOVE OPTIMAL 130-159 mg/dl BORDERLINE HIGH 160-189 mg/dl HIGH >190 mg/dl VERY HIGH Performing Lab: see note ML - [facility] LB GLYCOHEMOGLOBIN A1C Reviewed date:04/16/2024 08:23:03 PM Interpretation: Performing Lab: Notes/Report: [facility] , Glycohemoglobin A1C 9.2 4.5-6.2 % ADA RECOMMENDED LIMIT 4.0 - 6.0 ADA THERAPEUTIC TARGET < 7.0 ACTION SUGGESTED > 7.0 Estimated Average Glucose 217 Performing Lab: see note ML - [facility] LB CREATININE Reviewed date:08/12/2024 08:18:53 PM Interpretation: Performing Lab: Notes/Report: [facility] , Creatinine 2.02 0.70-1.30 mg/dL Estimated GFR ( Angelita 41 >=60 mL/min/1.73m 2 Estimated GFR (Non- Radha 34 >=60 mL/min/1.73m 2 Performing Lab: see note ML - [facility] LB VANCOMYCIN TROUGH Reviewed date:08/15/2024 06:46:43 PM Interpretation: Performing Lab: Notes/Report: [facility] , Vancomycin Trough 11.9 5.0-20.0 ug/mL Performing Lab: see note ML - [facility] LB CBC AUTO DIFF Reviewed date:09/01/2024 03:37:48 PM Interpretation: Performing Lab: Notes/Report: [facility] , White Blood Count 5.4 4.0-11.0 10 3/uL Red Blood Count 3.95 4.70-6.10 10 6/uL Hemoglobin 11.6 14.0-18.0 g/dL Hematocrit 37.0 42.0-54.0 % Mean Corpuscular Volume 93.7 80.0-94.0 fL Mean Corpuscular Hemoglobin 29.4 25.9-34.0 pg Mean Corpuscular HGB Conc 31.4 29.9-35.2 g/dL Red Cell Distribution Width 14.3 11.0-15.0 % Platelet Count 171 150-450 10 3/uL Mean Platelet Volume 8.9 9.5-13.5 fL Neutrophils Percent Auto 74.6 43.0-75.0 % Lymphocytes Percent Auto 15.2 20.5-60.0 % Monocytes Percent Auto 5.7 1.7-12.0 % Eosinophils Percent Auto 2.6 0.9-7.0 % Basophils Percent Auto 0.6 0.2-2.0 % Immature Granulocytes Pct Auto 1.3 0.0-0.5 % Neutrophils Absolute Auto 4.0 1.4-6.5 10 3/uL Lymphocytes Absolute Auto 0.8 1.2-3.8 10 3/uL Monocytes Absolute Auto 0.3 0.3-0.8 10 3/uL Eosinophils Absolute Auto 0.1 0.0-0.7 10 3/uL Basophils Absolute Auto 0.0 0.0-0.1 10 3/uL Immature Granulocytes Abs Auto 0.07 0.00-0.03 10 3/uL Performing Lab: see note ML - [facility] LB VANCOMYCIN TROUGH Reviewed date:08/22/2024 08:03:43 PM Interpretation: Performing Lab: Notes/Report: [facility] , Vancomycin Trough 10.4 5.0-20.0 ug/mL Performing Lab: see note - [facility] LB CREATININE Reviewed date:08/22/2024 08:03:43 PM Interpretation: Performing Lab: Notes/Report: [facility] , Creatinine 1.18 0.70-1.30 mg/dL Estimated GFR ( Angelita >60 >=60 mL/min/1.73m 2 Estimated GFR (Non- Radha >60 >=60 mL/min/1.73m 2 Performing Lab: see note - [facility] LB CREATININE Reviewed date:08/17/2024 11:52:23 AM Interpretation: Performing Lab: Notes/Report: [facility] , Creatinine 1.47 0.70-1.30 mg/dL Estimated GFR ( Angelita 59 >=60 mL/min/1.73m 2 Estimated GFR (Non- Radha 49 >=60 mL/min/1.73m 2 Performing Lab: see note - [facility] LB XR foot LT min 3V Reviewed date:08/15/2024 06:46:44 PM Interpretation: Performing Lab: Notes/Report: Source Facility: [place] [address] [place] [address] XRay Report Signed Patient: TORIBIO AGUILERA I MR#: [id number] : 1965 Acct:[id number] Age/Sex: 58 / M ADM Date: 04/16/24 Loc: RAD Attending Dr: Leena Myers D.P.M. Ordering Physician: Leena Myers D.P.M. Date of Service: 04/16/24 Procedure(s): XR foot LT min 3V Accession Number(s): [id number] cc: Leena Myers D.P.M.; Arnold Zazueta M.D. [facility] [place] [address] Patient Name: TORIBIO AGUILERA MRN: [id number] date: 1965 Sex: M Assigned Patient Location: RAD Current Patient Location: Accession/Order Number: [id number] Exam Date: 04/16/2024 11:50 Report Date: 04/18/2024 06:26 At the request of: LEENA MYERS Procedure: XR foot LT min 3V PROCEDURE: XR foot LT min 3V HISTORY: LEFT FOOT PAIN COMPARISON: XR foot left 03/19/2024 FINDINGS: BONES:Prior amputation of first toe at level of mid first metatarsal. Complete loss of plantar arch. Prior resection of head of second proximal phalanx. SOFT TISSUES:No visible soft tissue swelling. EFFUSION:None visible. OTHER: Negative. XR/XR foot LT min 3V IMPRESSION: 1. Stable surgical changes. 2. Marked pes planus; unchanged. 3. No appreciable acute abnormality. Electronically authenticated by: INO FERREIRA Date: 04/18/2024 06:26 Dictated By: Ino Ferreira M.D. Signed By: 04/18/24628 DD/ 5 TD/TT: Judge Clerk: [place] [address] XRay Report Signed Patient: TORIBIO AGUILERA I MR#: [id number] : 1965 Acct:[id number] Age/Sex: 58 / M ADM Date: 04/16/24 Loc: [facility] Attending Dr: Leena Myers D.P.M. Ordering Physician: Leena Myers D.P.M. Date of Service: 04/16/24 Procedure(s): XR foot LT min 3V Accession Number(s): [id number] cc: Leena Myers D.P.M.; Arnold Zazueta M.D. [place] [address] Patient Name: TORIBIO AGUILERA MRN: [id number] date: 1965 Sex: M Assigned Patient Location: [facility] Current Patient Location: Accession/Order Number: [id number] Exam Date: 04/16/2024 11:50 Report Date: 04/18/2024 06:26 At the request of: LEENA MYERS Procedure: XR foot LT min 3V PROCEDURE: XR foot LT min 3V HISTORY: LEFT FOOT PAIN COMPARISON: XR foot left 03/19/2024 FINDINGS: BONES:Prior amputation of first toe at level of mid first metatarsal. Complete loss of plantar arch. Prior resection of head of second proximal phalanx. SOFT TISSUES:No visible soft tissue swelling. EFFUSION:None visible. OTHER: Negative. XR/XR foot LT min 3V IMPRESSION: 1. Stable surgical changes. 2. Marked pes planus; unchanged. 3. No appreciable acute abnormality. Electronically authenticated by: INO FERREIRA Date: 04/18/2024 06:26 Dictated By: Ino Ferreira M.D. Signed By: 04/18/24628 DD/ 5 TD/TT: Judge Clerk: MADHAVI Baker Reviewed date:04/17/2024 08:33:44 PM Interpretation: Performing Lab: Notes/Report: [facility] CA 19-9 19 0-35 U/mL [employer] Electrochemiluminescence Immunoassay (ECLIA) Values obtained with different assay methods or kits cannot be used interchangeably. Results cannot be interpreted as absolute evidence of the presence or absence of malignant disease. Performed at: [address] [id number] Senior Professional Services Consultant: Daniel Santiago PhD, Phone: [phone] Performing Lab: see note [facility] LB URIC ACID SERUM Reviewed date:04/16/2024 08:23:04 PM Interpretation: Performing Lab: Notes/Report: [facility] , Uric Acid 9.6 3.5-7.2 mg/dL Performing Lab: see note ML - [facility] LB TSH Reviewed date:04/16/2024 08:23:04 PM Interpretation: Performing Lab: Notes/Report: [facility] , Thyroid Stimulating Hormone 10.029 0.358-3.740 uIU/mL Performing Lab: see note ML - [facility] LB T4 Reviewed date:04/16/2024 08:23:04 PM Interpretation: Performing Lab: Notes/Report: [facility] , T4 Thyroxine 8.70 4.50-12.10 ug/dL Performing Lab: see note ML - [facility] LB PSA SCREENING Reviewed date:04/16/2024 08:23:04 PM Interpretation: Performing Lab: Notes/Report: [facility] , Prostate Specific Antigen Scrn 0.83 <=4.00 ng/mL Performing Lab: see note ML - [facility] LB PROF 14(COMP METB) Reviewed date:04/16/2024 08:23:04 PM Interpretation: Performing Lab: Notes/Report: [facility] , Sodium 136 136-145 mmol/L Potassium 4.3 3.5-5.1 mmol/L Chloride 97 98-107 mmol/L Carbon Dioxide 29.5 21.0-32.0 mmol/L Anion Gap 13.8 Glucose 398 74-106 mg/dL Blood Urea Nitrogen 28.0 7.0-18.0 mg/dL Creatinine 1.93 0.70-1.30 mg/dL Estimated GFR ( Angelita 43 >=60 mL/min/1.73m 2 Estimated GFR (Non- Radha 36 >=60 mL/min/1.73m 2 BUN Creatinine Ratio 14.5 Calcium 9.8 8.5-10.1 mg/dL Bilirubin Total 0.8 0.2-1.0 mg/dL Aspartate Amino Transferase 20 15-37 U/L Alanine Aminotransferase 37 16-63 U/L Alkaline Phosphatase 100 46-116 U/L Total Protein 7.8 6.4-8.2 g/dL Albumin Level 3.7 3.4-5.0 g/dL Globulin 4.1 Albumin Globulin Ratio 0.9 Performing Lab: see note ML - [facility] LB LIPID PROFILE Reviewed date:04/16/2024 08:23:04 PM Interpretation: Performing Lab: Notes/Report: [facility] , Triglycerides 481 <=150 mg/dL Cholesterol 210 <=200 mg/dL HDL Cholesterol 35 40-60 mg/dL > or =60 mg/dl - LOW CARDIOVASCULAR RISK <40 mg/dl - HIGH CARDIOVASCULAR RISK VLDL CHOLESTEROL 96.2 Chol HDL Ratio 6.0 3.3 - 4.4 LOW RISK 4.4 - 7.1 AVERAGE RISK 7.1 - 11.0 MODERATE RISK >11.0 HIGH RISK Performing Lab: see note ML - [facility] LB LIPASE Reviewed date:04/16/2024 08:23:03 PM Interpretation: Performing Lab: Notes/Report: [facility] , Lipase 20.0 16.0-77.0 U/L Performing Lab: see note ML - [facility] LB FREE T3 Reviewed date:04/16/2024 08:23:03 PM Interpretation: Performing Lab: Notes/Report: [facility] , Free T3 3.37 2.18-3.98 pg/mL Performing Lab: see note ML - [facility] LB CBC AUTO DIFF Reviewed date:04/16/2024 08:23:03 PM Interpretation: Performing Lab: Notes/Report: [facility] , White Blood Count 6.9 4.0-11.0 10 3/uL Red Blood Count 4.85 4.70-6.10 10 6/uL Hemoglobin 14.1 14.0-18.0 g/dL Hematocrit 42.3 42.0-54.0 % Mean Corpuscular Volume 87.2 80.0-94.0 fL Mean Corpuscular Hemoglobin 29.1 25.9-34.0 pg Mean Corpuscular HGB Conc 33.3 29.9-35.2 g/dL Red Cell Distribution Width 13.2 11.0-15.0 % Platelet Count 203 150-450 10 3/uL Mean Platelet Volume 9.0 9.5-13.5 fL Neutrophils Percent Auto 76.1 43.0-75.0 % Lymphocytes Percent Auto 15.0 20.5-60.0 % Monocytes Percent Auto 6.1 1.7-12.0 % Eosinophils Percent Auto 1.5 0.9-7.0 % Basophils Percent Auto 0.7 0.2-2.0 % Immature Granulocytes Pct Auto 0.6 0.0-0.5 % Neutrophils Absolute Auto 5.2 1.4-6.5 10 3/uL Lymphocytes Absolute Auto 1.0 1.2-3.8 10 3/uL Monocytes Absolute Auto 0.4 0.3-0.8 10 3/uL Eosinophils Absolute Auto 0.1 0.0-0.7 10 3/uL Basophils Absolute Auto 0.1 0.0-0.1 10 3/uL Immature Granulocytes Abs Auto 0.04 0.00-0.03 10 3/uL Performing Lab: see note ML - [facility] LB XR foot LT min 3V Reviewed date:04/16/2024 08:23:04 PM Interpretation: Performing Lab: Notes/Report: Source Facility: [address] [place] [address] [place] [address] XRay Report Signed Patient: TORIBIO AGUILERA I MR#: [id number] : 1965 Acct:[id number] Age/Sex: 58 / M ADM Date: 03/19/24 Loc: [facility] Attending Dr: Leena Myers D.P.M. Ordering Physician: Leena Myers D.P.M. Date of Service: 03/19/24 Procedure(s): XR foot LT min 3V Accession Number(s): [id number] cc: Leena Myers D.P.M.; Arnold Zazueta M.D. [place] [address] Patient Name: TORIBIO AGUILERA MRN: [id number] date: 1965 Sex: M Assigned Patient Location: Current Patient Location: Accession/Order Number: [id number] Exam Date: 03/19/2024 12:25 Report Date: 03/24/2024 01:15 At the request of: LEENA MYERS Procedure: XR foot LT min 3V EXAM: XR foot LT min 3V HISTORY: LEFT FOOT PAIN COMPARISON: None. FINDINGS/IMPRESSION: 1. No acute fracture or dislocation. 2. Amputation of the distal aspect of the first ray at the level of the first metatarsal. 3. Moderate degeneration of the mid foot. 4. Small calcaneal plantar enthesophyte. 5. Moderate degeneration of the ankle joint. 6. Overlying bowel gas pattern is nonspecific. 7. Pes planus. Electronically authenticated by: YAMIL HUNTER Date: 03/24/2024 01:15 Dictated By: Yamil Hunter M.D. Signed By: 03/24/24116 DD/ 4 TD/TT: Judge Clerk: [place] [address] XRay Report Signed Patient: TORIBIO AGUILERA I MR#: [id number] : 1965 Acct:[id number] Age/Sex: 58 / M ADM Date: 03/19/24 Loc: EC Attending Dr: Leena Myers D.P.M. Ordering Physician: Leena Myers D.P.M. Date of Service: 03/19/24 Procedure(s): XR foot LT min 3V Accession Number(s): [id number] cc: Leena Myers D.P.M.; Arnold Zazueta M.D. [facility] [place] [address] Patient Name: TORIBIO AGUILERA MRN: [facility]:[id number] date: 1965 Sex: M Assigned Patient Location: Current Patient Location: Accession/Order Number: [id number] Exam Date: 03/19/2024 12:25 Report Date: 03/24/2024 01:15 At the request of: LEENA MYERS Procedure: XR foot LT min 3V EXAM: XR foot LT min 3V HISTORY: LEFT FOOT PAIN COMPARISON: None. FINDINGS/IMPRESSION: 1. No acute fracture or dislocation. 2. Amputation of the distal aspect of the first ray at the level of the first metatarsal. 3. Moderate degeneration of the mid foot. 4. Small calcaneal plantar enthesophyte. 5. Moderate degeneration of the ankle joint. 6. Overlying bowel gas pattern is nonspecific. 7. Pes planus. Electronically authenticated by: YAMIL HUNTER Date: 03/24/2024 01:15 Dictated By: Yamil Hunter M.D. Signed By: 03/24/24116 DD/ 4 TD/TT: Judge Clerk: PROF Walters(COMP METB) Reviewed date:09/01/2024 03:37:48 PM Interpretation: Performing Lab: Notes/Report: [facility] , Sodium 141 136-145 mmol/L Potassium 4.2 3.5-5.1 mmol/L Chloride 104 98-107 mmol/L Carbon Dioxide 30.1 21.0-32.0 mmol/L Anion Gap 11.1 Glucose 115 74-106 mg/dL Blood Urea Nitrogen 22.0 7.0-18.0 mg/dL Creatinine 1.35 0.70-1.30 mg/dL Estimated GFR ( Angelita >60 >=60 mL/min/1.73m 2 Estimated GFR (Non- Radha 54 >=60 mL/min/1.73m 2 BUN Creatinine Ratio 16.3 Calcium 8.7 8.5-10.1 mg/dL Bilirubin Total 0.6 0.2-1.0 mg/dL Aspartate Amino Transferase 25 15-37 U/L Alanine Aminotransferase 30 16-63 U/L Alkaline Phosphatase 67 46-116 U/L Total Protein 7.1 6.4-8.2 g/dL Albumin Level 3.2 3.4-5.0 g/dL Globulin 3.9 Albumin Globulin Ratio 0.8 Performing Lab: see note ML - [facility] LB Reason For Referral Reason Left SELDOVIA boot néstor e of added to rx Diagnosis 1 Charcot's joint, lef t ankle and foot (M14.672) Referral Organization [facility] (PODIATRY) Referring Provider First Name Leena Referring Provider Last Name Louis [facility] [place], [facility] Referred Provider Specialty Other suppli er Referral Priority Routine Diagnosis 1 Chronic cholecystiti s (K81.1) Referral Organization [facility] Referring Provider First Name Chang Referring Provider Last Name Carlita Referring Provider [facility] Referred Provider Mark Montano Referred Provider Specialty Surgery Referral Priority Routine Reason adjust prosthesis Diagnosis 1 Charcot's joint, lef t ankle and foot (M14.672) Referral Organization [facility] (PODIATRY) Referring Provider First Name Leena Referring Provider Last Name Louis Referring Provider [facility] Podiatry Referred Provider [facility] [place], [facility] Referred Provider Specialty Other suppli er Referral Priority Routine Reason Evaluate and treat R ight BKA and Left foot Charcot for mobility -- Dr. Alex Duval Diagnosis 1 Charcot's joint, lef t ankle and foot (M14.672) Referral Organization [facility] (PODIATRY) Referring Provider First Name Leena Referring Provider Last Name Louis Referring Provider Speciality Podiatry Referred Provider Specialty Physical Med icine and Rehabilitation Referral Priority Routine Diagnosis 1 Cellulitis (L03.90) Referral Organization [facility] Referring Provider First Name Chang Referring Provider Last Name Carlita Referring Provider [facility] Referred Provider Leena Myers Referred Provider Specialty Podiatry Referral Priority Routine Medications Medication SIG (Take, Route, Frequency, Duration) Notes Start Date End Date Status Basaglar KwikPen 100 UNIT/ML 300 units once daily Subcutaneous Active Silver sulfADIAZINE 1 % 1 application Ex ternally twice daily for 30 days Active Acetaminophen 500 MG 2 tablets Orally ev ubaldo 8 hours PRN for 90 days Active Synthroid 100 MCG 1 tablet in the morn ing on an empty stomach Orally Once a day for 30 days 04/17/2024 Active amLODIPine Besylate 10 mg TAKE 1 TABLET BY MOUTH EVERY DAY for 30 Active Carvedilol 12.5 mg TAKE 1 TABLET BY [facility] TWICE DAILY WITH FOOD for 90 Active cloNIDine 0.3 MG/24HR 1 patch to skin on ce weekly for 30 days Active Desvenlafaxine Succinate ER 100 mg TAKE 1 TABLET BY MOUTH DAILY FOR 90 DAYS for 90 Active Eliquis 5 mg TAKE 1 TABLET BY [facility] TWICE DAILY for 30 Active Entresto 24-26 MG 1 tablet Orally Twic e a day for 90 days 06/05/2023 Active Dexcom G7 Sensor - used to monitor bloo d sugar dx E11.9 for 10 days 11/06/2024 Active Dexcom G7 Sales Officer - used to monitor blo od sugar dx:E11.9 for 365 days 11/06/2024 Active Pantoprazole Sodium 40 mg TAKE 1 TABLET BY MOUTH ONCE DAILY for 90 Active Pen Cushing 32G X 4 MM Use 1 pen needle via insulin pen 6 times daily DX E11.9 for 90 days 11/25/2022 Active Promethazine HCl 25 MG 1 tablet as neede d Orally q6h for 5 days 08/14/2024 Active SEROquel 50 MG 1 tablet at bedtime Orally Once a day for 30 days 03/20/2024 Active Gabapentin 600 mg TAKE 1 TABLET BY [facility] THREE TIMES DAILY for 30 Active HumaLOG KwikPen 100 UNIT/ML Inject per S ubcutaneous sliding scale- max units daily 120- DX e11.0 for 30 days Active hydrALAZINE HCl 50 MG 1 tablet with food Orally two times daily for 90 days Active Insulin Syringe/Needle use to inject insulin 4 times daily for 120 days DX:E11.9 07/31/2024 Active Nystatin 125190 UNIT/GM 1 application Ex ternally Twice a day Active Nystatin 449183 UNIT/GM 1 application Ex ternally Twice a day 08/28/2024 Active Ondansetron 4 MG 1 tablet on the tong ue and allow to dissolve Orally qid for 5 days 08/14/2024 Active FreeStyle Dusty 3 Plus Sensor - Use one sensor every 15 days to monitor glucose DX E11.9 for 90 days Active FreeStyle Dusty 3 Lyman - use device to monitor glucose multiple times daily DX E11.9 for 365 days 06/14/2023 Active Furosemide 40 mg TAKE 1 TABLET BY DEEPTI TH DAILY FOR 90 DAYS for 90 Active Immunizations Vaccine Route Administration Date Status Comme nts Flu, Flucelvax (45435) 6 mos and older, single-dose syringe IM Intramuscular 03/20/2024 Administered Social History Tobacco Use: Social History Observation [...] ast year? No Points 0 Interpretation Negative Problems Problem Type SNOMED Code ICD Code Onset Dates Problem Status W/U Status Risk Notes Problem Gastro-esophageal reflux disease without esophagitis (064102138) Gastro-esophageal reflux disease without esophagitis (K21.9) Active confirmed Problem 15666860 Type 2 diabetes mellitus with diabetic neuropathy, unspecified (E11.40) Active confirmed Problem 7958746762734 Type 2 diabetes mellitus with diabetic polyneuropathy (E11.42) Active confirmed Problem Foot ulcer due to type 2 diabetes mellitus (9438474177389) Type 2 diabetes mellitus with foot ulcer (E11.621) Active confirmed Problem 97469449 Other chronic pain (G89.29) Active confirmed Problem 20731413 Unspecified atrial fibrillation (I48.91) Active confirmed Problem Chronic cholecystitis (52691789) Chronic cholecystitis (K81.1) Active confirmed Problem Ankle ulcer (032179571) 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) Active confirmed Problem Arthropathy associated with a neurological disorder (39944022) Charcot's joint, right ankle and foot (M14.671) Active confirmed Problem 909300872 Charcot's joint, left ankle and foot (M14.672) Active confirmed Problem Acute osteomyelitis of ankle and/or foot (102166921) Subacute osteomyelitis, right ankle and foot (M86.271) Active confirmed Problem 163868872 rn long term care (current) use of insulin (Z79.4) Active confirmed Problem Morbid obesity (127936524) Morbid obesity (E66.01) Active confirmed Problem Hypertension (32770212) Hypertension (I10) Active confirmed Problem Gastroesophageal reflux disease (452787986) GERD (gastroesophageal reflux disease) (K21.9) Active confirmed Problem Hypothyroid (74600272) Hypothyroid (E03.9) Active confirmed Problem Chronic kidney disease stage 2 (892582246) Chronic kidney disease (CKD) stage G2/A1, mildly decreased glomerular filtration rate (GFR) between 60-89 mL/min/1.73 square meter and albuminuria creatinine ratio less than 30 mg/g (N18.2) Active confirmed Problem Chronic diastolic heart failure (350277759) Chronic diastolic (congestive) heart failure (I50.32) Active confirmed Problem Cholelithiasis (990066543) Cholelithiases (K80.20) Active confirmed Problem Cellulitis (268189283) Cellulitis (L03.90) Active confirmed Problem Chronic diastolic heart failure (285768395) Diastolic CHF (I50.30) Active confirmed Problem Iron deficiency anemia (43752924) Anemia, iron deficiency (D50.9) Active confirmed Problem Pain in left foot (019525416896799) Left foot pain (M79.672) Active confirmed Problem Delayed healing of surgical wound (finding) (921690805) Delayed surgical wound healing (T81.89XA) Active confirmed Problem Long-term current use of insulin (738959103) Long-term insulin use (Z79.4) Active confirmed Problem Arthropathy associated with a neurological disorder (71436787) Charcot ankle (M14.679) Active confirmed Problem Cellulitis of right ankle (08363939992982336) Cellulitis of right ankle (L03.115) Active confirmed Problem Polyneuropathy due to type 2 diabetes mellitus (841837110) Diabetes mellitus with diabetic polyneuropathy (E11.42) Active confirmed Problem Essential hypertension (85598038) BP (high blood pressure) (I10) Active confirmed Problem Chronic osteomyelitis of lower leg (732327724) Chronic osteomyelitis involving lower leg (M86.669) Active confirmed Problem Osteomyelitis of ankle (087148595) Osteomyelitis of ankle (M86.9) Active confirmed Problem 475068319 Ankle arthritis (M19.079) Active confirmed Problem Subacute osteomyelitis of right foot (87793341112220748) Subacute osteomyelitis of right foot (M86.271) Active confirmed Problem 496619762 Hematoma (T14.8XXA) Active confirmed Problem 232852839 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) Active confirmed Problem Diabetes mellitus (63998917) Diabetes mellitus (E11.9) Active confirmed Problem 606273014 Diabetic foot ulcer (250.80) Active confirmed Vital Signs Heart Rate 82 /min 03/19/2024 Temperature 97.5 degrees Fahrenheit 03/19/2024 Blood pressure diastolic 90 mm Hg 10/07/2024 Oximetry 97 % 03/19/2024 Height 73 in 10/07/2024 Blood pressure systolic 160 mm Hg 10/07/2024 Encounters Encounter Location Date Provider Diagnosis [facility] [address] [place] [address] 12/12/2023 Chang Zazueta [facility] [address] [place] [address] 01/18/2024 Chang Zazueta [facility] [address] [place] [address] 01/18/2024 Chang elier [facility] [address] [place] [address] 01/19/2024 Chang elier [facility] [address] [place] [address] 01/22/2024 Chang Zazueta [facility] [address] [place] [address] 04/01/2024 Chang Zazueta Chronic cholecystiti s K81.1 [facility] [address] [place] [address] 04/16/2024 Chang Zazueta Other specified abnormal findings of blood chemistry R79.89 [facility] [address] [place] [address] 05/27/2024 Chang Zazueta Diabetes mellitus E11.9 [facility] [address] [place] [address] 06/04/2024 Chang Zazueta [facility] [address] [place] [address] 07/26/2024 Chang Zazueta [facility] [address] [place] [address] 07/29/2024 Chang Zazueta [facility] [address] [place] [address] 07/30/2024 Chang Zazueta [facility] [address] [place] [address] 07/31/2024 Chang Zazueta [facility] [address] [place] [address] 08/09/2024 Chang Zazueta Wellness examination Z00.00 [facility] [address] [place] [address] 08/14/2024 Chang Zazueta [facility] [address] [facility] [place] [address] 08/22/2024 Chang Zazueta [facility] [address] [facility] [place] [address] 08/22/2024 Chang Zazueta [facility] [address] [facility] [place] [address] 08/26/2024 Chang Zazueta [facility] [address] [facility] [place] [address] 08/27/2024 Chang Zazueta [facility] [address] [facility] [place] [address] 08/28/2024 Chang Zazueta [facility] [address] [place] [address] 11/05/2024 Chang Zazueta [facility] [address] [place] [address] 11/06/2024 Chang Zazueta [facility] [address] [place] [address] 08/05/2024 Chang Zazueta Diabetes mellitus E11.9 ; Chronic diastolic (congestive) heart failure I50.32 and Cellulitis L03.90 [facility] [address] [facility] [place] [address] 10/07/2024 Chang Zazueta Diabetes mellitus E11.9 ; GERD (gastroesophageal reflux disease) K21.9 ; Chronic diastolic (congestive) heart failure I50.32 ; Chronic kidney disease (CKD) stage G2/A1, mildly decreased glomerular filtration rate (GFR) between 60-89 mL/min/1.73 square meter and albuminuria creatinine ratio less than 30 mg/g N18.2 and Well adult Z00.00 [facility] [address] [facility] [place] [address] 03/20/2024 Chang Zazueta Chronic cholecystiti s K81.1 ; Chronic diastolic (congestive) heart failure I50.32 ; Type 2 diabetes mellitus with foot ulcer E11.621 ; Hypertension I10 ; Well adult Z00.00 and Encounter for immunization Z23 [facility] [address] [place] [address] [place] [address] 03/19/2024 Leena Myers Charcot's joint, lef t ankle and foot M14.672 ; Type 2 diabetes mellitus with diabetic polyneuropathy E11.42 ; Valgus deformity, not elsewhere classified, left ankle M21.072 and Left foot pain M79.672 [facility] [address] [place] [address] [place] [address] 04/16/2024 Peter Louis Left foot pain M79.672 ; Charcot's joint, left ankle and foot M14.672 and Tinea pedis B35.3 Assessments Encounter Date Diagnosis (ICD Code) Assessment Notes Treatment Notes Treatment Clinical Notes Section Notes 03/20/2024 Chronic cholecystitis (ICD-10 - K81.1) nbeeds dr montano 03/20/2024 Chronic diastolic (congestive) heart failure (ICD-10 - I50.32) 03/19/2024 Charcot's joint, left ankle and foot (ICD-10 - M14.672) Patient is a 58-year-old male well-known to my practice who had a history of right ankle Charcot, ulceration and infection which 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 He presents today for new problem regarding his left foot noting severe deformity which is developed over the last couple of months and pain that has substantially gotten worse over the last month. He is very concerned to lose his left leg given his history of right BKA. I recommended a cam boot for temporary immobilization but ultimately given his high risk I ordered a [place] boot which I believe is his best long-term solution.Prescript ion for [place] boot was provided and the goals of custom bracing are to provide stability and reduce pain thereby reducing risk of falls and enhancing ability to perform activities of daily living. He will need custom bracing for the remainder of his lifetime for his left foot and ankle 03/19/2024 Type 2 diabetes mellitus with diabetic polyneuropathy (ICD-10 - E11.42) 04/16/2024 Left foot pain (ICD-10 - M79.672) 04/16/2024 Charcot's joint, left ankle and foot (ICD-10 - M14.672) Patient's left foot is stable and his swelling is much improved. He should continue using the cam boot until his [place] boot is obtained. He is to monitor his skin closely and call the office if any changes occur. He will follow-up in approximately 6 weeks. No new x-rays are necessary 08/05/2024 Diabetes mellitus (ICD-10 - E11.9) 08/05/2024 Chronic diastolic (congestive) heart failure (ICD-10 - I50.32) 10/07/2024 Diabetes mellitus (ICD-10 - E11.9) 04/01/2024 Chronic cholecystitis (ICD-10 - K81.1) 04/16/2024 Other specified abnormal findings of blood chemistry (ICD-10 - R79.89) 05/27/2024 Diabetes mellitus (ICD-10 - E11.9) 08/09/2024 Wellness examination (ICD-10 - Z00.00) 10/07/2024 GERD (gastroesophageal reflux disease) (ICD-10 - K21.9) 08/05/2024 Cellulitis (ICD-10 - L03.90) Picc line and out pt IV AB jasbir goff and vanco needs CBC, chem 14, esr 04/16/2024 Tinea pedis (ICD-10 - B35.3) Patient's skin irritation and skin tears are consistent with tinea I recommended he remove his existing prosthesis as much as possible including at night and allow air to help dry his skin. I recommended Medihoney sheets to be placed over the irritated skin while he wears his prosthesis which does seem to be too big. I did provide referrals to Dr. Duval as well as prosthetists to evaluate and treat as necessary as he is a fall risk and at high risk for complication. 03/19/2024 Valgus deformity, not elsewhere classified, left ankle (ICD-10 - M21.072) 03/20/2024 Type 2 diabetes mellitus with foot ulcer (ICD-10 - E11.621) 03/20/2024 Hypertension (ICD-10 - I10) 03/19/2024 Left foot pain (ICD-10 - M79.672) 10/07/2024 Chronic diastolic (congestive) heart failure (ICD-10 - I50.32) 10/07/2024 Chronic kidney disease (CKD) stage G2/A1, mildly decreased glomerular filtration rate (GFR) between 60-89 mL/min/1.73 square meter and albuminuria creatinine ratio less than 30 mg/g (ICD-10 - N18.2) 10/07/2024 Well adult (ICD-10 - Z00.00) 03/20/2024 Well adult (ICD-10 - Z00.00) 03/20/2024 Encounter for immunization (ICD-10 - Z23) Plan Of Treatment Pending Test Test Name Order Date CMP (COMPLETE METABOLIC PANEL) HEMOGLOBIN A1C (GLYCO) 03/20/2024 HEMOGLOBIN A1C (GLYCO) 10/07/2024 LIPID PANEL (CHOL/TRIG/HDL/LDL) 10/08/19 25 LIPID PANEL (CHOL/TRIG/HDL/LDL) 03/20/20 24 CBC WITH DIFF 03/20/2024 URIC ACID 03/20/2024 URIC ACID 10/07/2024 XR Foot LT (3 views) * 03/19/2024 XR Foot LT (3 views) * 04/16/2024 FECAL OCCULT BLOOD 08/09/2024 CMP - Comprehensive Metabolic Panel 07/27 PSA, TOTAL 03/20/2024 STOOL OCCULT BLOOD 10/07/2024 CA 19-9 03/20/2024 CBC AUTO DIFF 08/09/2024 GLYCOHEMOGLOBIN A1C 08/09/2024 LIPASE 03/20/2024 LIPID PROFILE 08/09/2024 THYROID PROFILE WITH TSH 04/16/2024 THYROID PANEL (T4/TSH/FREE T3) 4 THYROID PANEL (T4/TSH/FREE T3) 5 THYROID PANEL (T4/TSH/FREE T3) 4 THYROID PANEL (T4/TSH/FREE T3) 4 THYROID PANEL (T4/TSH/FREE T3) 4 THYROID PANEL (T4/TSH/FREE T3) 5 PSA, SCREENING 08/09/2024 PSA, SCREENING 10/07/2024 CMP (COMP MET SMITH) w/eGFR CKD-EPI 2024 CBC WITH DIFF 10/07/2024 Insurance Providers Payer Name Payer Address Payer Phone Subscriber Number Group Number Insured Name Patient Relationship to Insured Coverage Start Date Coverage End Date [employer] MED[employer]ARE [address] [place], [place] [phone] [id number] Toribio Aguilera Self - patient is the insured [employer] [place] [employer] [address] [address] [place] [address] [id number] [id number] Willy Toribio Self - patient is the insured 3 3 Medical (General) History Medical History History ICD Code Type 2 Diabetes E11.9 Gastro-esophageal reflux disease without esophagitis K21.9 High blood pressure I10 Surgical History Surgery Date(Month/Year) Left foot, 3rd toe amputatio n at [facility], tendon repair of 2nd and 4th toes, bone removal great toe 07/2021 Right ankle fusion 03/01/2019 Right ankle fusion revision 05/24/2022 Cataract extraction OU Right foot amputation 01/09/23 right below the knee ampuation Hospitalization History Reason Date(Month/Year) see above
--- OUTSIDE RECORDS SUMMARY | 2024-11-15 13:16 | XMS_ITS | Encounter Summary ---
Author Organization [facility] Address [address] [facility] [place] [address] Care Team Providers Care Therapeutic Specialist Name Role Phone Osman Higgins MD Primary Care Provider [phone] Encounter Details Date Type Department Care Team (Late st Contact Info) Description 03/31/2023 Abstract [facility] [address] [facility] [address] [place] [address] Osman Higgins MD [address] [facility] [address] [place] [address] Social History Tobacco Use Types Packs/Day Years Used Date Smoking Tobacco: Never Assessed Sex and Gender Information Value Date Recorded Sex Assigned at Not on file Legal Sex Male 7:17 PM EDT Gender Identity Not on file Sexual Orientation Not on file documented as of this encounter Plan of Treatment Not on file documented as of this encounter Visit Diagnoses Not on filedocumented in this encounter Care Teams Therapeutic Specialist Relationship Specialty Start Date End Date Osman Higgins MD [address] [facility] [address] [place] [address] PCP - General Internal Medicine 02/13/23 04/09/23 documented as of this encounter
--- OUTSIDE RECORDS SUMMARY | 2024-11-15 13:16 | XMS_ITS | Clinical Summary ---
Author Organization [facility] Address [address] [place] [address] Care Team Providers Care Sample Collector Name Role Phone Arnold Zazueta MD Primary Care Provider [phone] Allergies Active Allergy Reactions Criticality Noted Date Comments Ciprofloxacin 09/06/2022 Clindamycin 09/06/2022 Shellfish Derived 09/06/2022 Spider Venom 09/06/2022 Medications amLODIPine (Norvasc) 10 mg tablet 3 Active Eliquis 5 mg tablet Take 5 mg by mouth in the morning and at bedtime. 3 Active cloNIDine (Catapres-TTS) 0.3 mg/24 hr APPLY 1 PATCH TOPICALLY TO THE SKIN EVERY WEEK DIRECTED 3 Active desvenlafaxine (Pristiq) 100 mg 24 hr tablet Take 100 mg by mouth in the morning. 3 Active furosemide (Lasix) 40 mg tablet Take 40 mg by mouth in the morning. 3 Active gabapentin (Neurontin) 300 mg capsule Take 600 mg by mouth in the morning and at bedtime. 3 Active Toujeo Max U-300 SoloStar 300 unit/mL (3 mL) injection INJECT 300 UNITS UNDER THE SKIN TWICE A DAY 3 Active HumaLOG KwikPen Insulin 200 unit/mL (3 mL) insulin pen pen 3 Active pantoprazole (ProtoNix) 40 mg EC tablet Take 40 mg by mouth in the morning. 3 Active Entresto 24-26 mg tablet Take 1 tablet by mouth in the morning and at bedtime. 3 Active carvedilol (Coreg) 12.5 mg tabletIndicatio ns:Essential hypertension,Ch ronic systolic heart failure (CMS/HCC) Take 1 tablet (12.5 mg) by mouth with breakfast and with evening meal. 180 tablet 3 3 Active Family History Medical History Relation Name Comments abdominal aortic aneurysm Father Cancer Mother Heart failure Mother Relation Name Status Comments Father Mother Social History Tobacco Use Types Packs/Day Years Used Date Smoking Tobacco: Former Cigarettes Smokeless Tobacco: Never Tobacco Cessation:Counseling Given: Not Answered Alcohol Use Standard Drinks/Week Comments Not Currently 0 (1 standard drink = 0.6 oz pur e alcohol) [place] Safety & Environment Answer Date Rec orded Fear of Current or Ex-Partner Not on file Emotionally Abused Not on file 07/20/2023 Physically Abused Not on file 07/20/2023 Sexually Abused Not on file 07/20/2023 Physically or Sexually Abused Not on file Sex and Gender Information Value Date Recorded Sex Assigned at Not on file Legal Sex Male 10:17 PM EDT Gender Identity Not on file Sexual Orientation Not on file Last Filed Vital Signs Vital Sign Reading Time Taken Comments Blood Pressure 152/67 09/06/2022 3:50 PM EDT Pulse 81 09/06/2022 3:50 PM EDT Temperature - - Respiratory Rate - - Oxygen Saturation 85% 09/06/2022 3:50 PM EDT Inhaled Oxygen Concentration - - Weight 223 kg (492 lb) 09/06/2022 3:50 PM EDT Height 188 cm (6' 2 ) 09/06/2022 3:50 PM EDT Body Mass Index 63.17 09/06/2022 3:50 PM EDT Plan of Treatment Health Maintenance Due Date Last Done Comments CT Colonography 1963 Colonoscopy 1963 Colorectal Cancer Screening 1963 FIT-DNA 1963 FIT 1963 FOBT 1965 Sigmoidoscopy 1963 Depression Screening 1975 Zoster Vaccines (1 of 2) 11/25/2013 Adult Tetanus 10/30/2019 10/29/2009 COVID-19 Vaccine ( - 2023-2 5 season) 2024 Influenza Vaccine (Season Ended) 2025 04/04/2022, 03/19/2021, 05/18/2020 HIB Vaccines Aged Out No longer eligi ble based on patient's age to complete this topic HPV Vaccines Aged Out No longer eligi ble based on patient's age to complete this topic IPV Vaccines Aged Out No longer eligi ble based on patient's age to complete this topic Meningococcal B Vaccine Aged Out No l onger eligible based on patient's age to complete this topic Meningococcal Vaccine Aged Out No samantha ar eligible based on patient's age to complete this topic Pneumococcal Vaccine: Pediatrics (0 to 5 Years) and At-Risk Patients (6 to 64 Years) Aged Out No longer eligible b ased on patient's age to complete this topic Rotavirus Vaccines Aged Out No longer eligible based on patient's age to complete this topic Insurance [facility] Care Teams Sample Collector Relationship Specialty Start Date End Date Arnold Zazueta MD [address] [place] [address] PCP - General 09/06/22
--- OUTSIDE RECORDS SUMMARY | 2024-11-15 13:16 | XMS_ITS | Clinical Summary ---
Author Organization [facility] Address [address] [place] [address] Care Team Providers Care Biochemistry Specialist Name Role Phone Unavailable Primary Care Provider Unavailabl e Social History Tobacco Use Types Packs/Day Years Used Date Smoking Tobacco: Never Assessed Sex and Gender Information Value Date Recorded Sex Assigned at Not on file Legal Sex Male 1:46 PM EDT Gender Identity Not on file Sexual Orientation Not on file Plan of Treatment Not on file Insurance [facility] MEDICARE ADVANTAGE PPO
--- OUTSIDE RECORDS SUMMARY | 2024-11-15 13:16 | XMS_ITS | Encounter Summary ---
Author Organization [facility] Address [address] [place] [address] Phone Care Team Providers Care Chief Wharfinger Name Role Phone Unavailable Primary Care Provider Unavailabl e Encounter Details Date Type Department Care Team (Late st Contact Info) Description 01/03/2023 Scanned Document [facility] [address] [place] [address] Conversion, Onbase Social History Tobacco Use Types [...]
[2024-11-15 13:24] LABS: Basophils Percent Auto 0.7 % (0.2-2.0); Eosinophils Absolute Auto 0.1 10^3/uL (0.0-0.7); Eosinophils Percent Auto 2.1 % (0.9-7.0); Hematocrit 38.9 % (42.0-54.0); Hemoglobin 12.8 g/dL (14.0-18.0); Immature Granulocytes Abs Auto 0.03 10^3/uL (0.00-0.03); Immature Granulocytes Pct Auto 0.5 % (0.0-0.5); Lymphocytes Absolute Auto 0.8 10^3/uL (1.2-3.8); Lymphocytes Percent Auto 14.5 % (20.5-60.0); Mean Corpuscular HGB Conc 32.9 g/dL (29.9-35.2); Mean Corpuscular Hemoglobin 28.9 pg (25.9-34.0); Mean Corpuscular Volume 87.8 fL (80.0-94.0); Mean Platelet Volume 8.1 fL (9.5-13.5); Monocytes Absolute Auto 0.3 10^3/uL (0.3-0.8); Monocytes Percent Auto 5.2 % (1.7-12.0); Neutrophils Absolute Auto 4.3 10^3/uL (1.4-6.5); Platelet Count 163 10^3/uL (150-450); Red Blood Count 4.43 10^6/uL (4.70-6.10); Red Cell Distribution Width 13.8 % (11.0-15.0); White Blood Count 5.6 10^3/uL (4.0-11.0)
[2024-11-15 14:01] LABS: Alanine Aminotransferase 29 U/L (16-63); Albumin Globulin Ratio 0.9; Albumin Level 3.5 g/dL (3.4-5.0); Alkaline Phosphatase 73 U/L (46-116); Aspartate Amino Transferase 24 U/L (15-37); Bilirubin Total 0.6 mg/dL (0.2-1.0); Calcium 9.2 mg/dL (8.5-10.1); Carbon Dioxide 31.3 mmol/L (21.0-32.0); Chloride 103 mmol/L (98-107); Chol HDL Ratio 5.2; Cholesterol 198 mg/dL (<=200); Estimated GFR (African America >60 (>=60 mL/min/1.73m^2); Estimated GFR (Non-African Ame 55 (>=60 mL/min/1.73m^2); Free T3 2.81 pg/mL (2.18-3.98); Globulin 4.1 g/dL; Glucose 132 mg/dL (74-106); HDL Cholesterol 38 mg/dL (40-60); Potassium 4.3 mmol/L (3.5-5.1); Sodium 141 mmol/L (136-145); Thyroid Stimulating Hormone 6.098 uIU/mL (0.358-3.740); Total Protein 7.6 g/dL (6.4-8.2); Triglycerides 234 mg/dL (<=150); VLDL CHOLESTEROL 46.8 mg/dL
[2024-11-15 14:23] LABS: Prostate Specific Antigen Scrn 0.94 ng/mL (<=4.00)
[2024-11-15 14:25] LABS: Estimated Average Glucose 151 mg/dL; Glycohemoglobin A1C 6.9 % (4.5-6.2)
== END 2024-11-15 13:14 | disposition home or self-care (01) ==
LOC: LAB 13:13
PROVIDERS: PCP Family Medicine; Visit Provider Family Medicine
DX: Z00.00 Encounter for general adult medical examination without abnormal findings (principal); E78.5 Hyperlipidemia, unspecified; R73.09 Other abnormal glucose; Z12.12 Encounter for screening for malignant neoplasm of rectum; R53.83 Other fatigue; I10 Essential (primary) hypertension; Z12.5 Encounter for screening for malignant neoplasm of prostate; M25.50 Pain in unspecified joint
CPT/HCPCS: 36415; 80053; 80061; 83036; 84436; 84443; 84481; 84550; 85025; G0103